=== PATIENT | male | born 1945 | race Caucasian/White ===

== ENCOUNTER → 2020-07-18 11:42 | Outpatient (CLI) | payer MEDICARE, SELFPAY ==
[2018-12-09 14:29] VITALS: BMI 28.6
[2020-07-18 15:06] LABS: Absolute Lymphocyte Count 1.52 X10^3/uL (0.83-4.51); Absolute Neutrophil Count 5.1 X10^3/uL (2.0-7.7); Basophil# 0.06 X10^3/uL; Basophil% 0.8 % (0-1); Eosinophil# 0.36 X10^3/uL; Eosinophils% 4.6 % (0-5); Hematocrit 48.9 % (40-54); Lymphocyte # 1.52 X10^3/ul (4.0); Lymphocyte % 19.2 % (19-41); Mean Corp Hgb Conc 32.7 g/dL (32-36); Mean Corpuscular Hgb 29.9 pg (27.0-32.0); Mean Corpuscular Volume 91.4 fL (80-94); Mean Platelet Vol. 10.6 fl (6.2-12.0); Monocyte# 0.87 X10^3/uL; NRBC Flagged by Analyzer 0 % (0-5); Neutrophil # 5.07 X10^3/uL (2.7-7.7); Platelet Count 235 K/mm3 (150-450); RBC Distribution Width CV 12.4 % (11.6-14.6); Red Blood Count 5.35 M/mm3 (4.6-6.2); White Blood Count 7.9 K/mm3 (4.4-11.0)
[2020-07-18 15:15] LABS: Color, Urine Yellow (Yellow); Glucose, Dipstick Normal (Normal); Ketone-Dipstick Negative (Negative); Leukocyte Esterase-Dipstick 25 /ul (Negative); Nitrite-Dipstick Negative (Negative); Occult Blood-Urine Negative /ul (Negative); Protein-Dipstick Negative (Negative); Specific Gravity, Urine 1.015 (1.002-1.030); Urine Bilirubin Dipstick Negative (Negative); Urine Clarity Clear (Clear); Urine Urobilinogen Normal (Normal)
[2020-07-18 15:30] LABS: ALB/GLOB Ratio 0.9 RATIO (0.9-2.4); AST(SGOT) 14 U/L (15-37); Alanine Aminotransfer ALT/SGPT 32 U/L (16-61); Albumin, Serum 3.7 g/dL (3.2-5.0); Alkaline Phosphatase 71 U/L (45-117); Anion Gap 5 (5-15); BUN 11 mg/dL (7-18); BUN/Creat Ratio 15.6 RATIO (10-20); Chloride 105 mmol/L (98-107); Cholesterol 175 mg/dL (200); EST Glomerular Filtration Rate 117 mL/min (>60); Est Glom Filt Rate - Afr Amer 141 mL/min (>60); Glucose 83 mg/dL (74-106); High Density Lipoprotein 42 mg/dL; PSA,Total - Annual Screen 2.24 ng/mL (0.00-4.00); Protein, Total 7.7 g/dL (6.4-8.2); Sodium Level 137 mmol/L (136-145); T4 Total, Thyroxin 9.8 ug/dL (4.5-12.1); Thyroid Stim Hormone (TSH) 0.31 uIU/mL (0.358-3.74); Triglycerides 106 mg/dL; Very Low Density Lipoprotein 21 mg/dL (5-40)
== END ==
PROVIDERS: PCP Family Medicine; Referring Provider Family Medicine; Visit Provider Family Medicine
DX: Z00.00 Encounter for general adult medical examination without abnormal findings (principal); J44.9 Chronic obstructive pulmonary disease, unspecified; E05.90 Thyrotoxicosis, unspecified without thyrotoxic crisis or storm; Z12.5 Encounter for screening for malignant neoplasm of prostate
CPT/HCPCS: 36415; 80053; 80061; 81002; 84153; 84436; 84443; 84480; 85025; G0103

== ENCOUNTER → 2021-01-22 09:51 | Outpatient (CLI) | payer MEDICARE, SELFPAY ==
[2018-12-09 14:29] VITALS: BMI 28.6
[2021-01-22 12:40] LABS: Absolute Lymphocyte Count 1.89 X10^3/uL (0.83-4.51); Absolute Neutrophil Count 5.4 X10^3/uL (2.0-7.7); Basophil# 0.07 X10^3/uL; Basophil% 0.8 % (0-1); Eosinophil# 0.37 X10^3/uL; Eosinophils% 4.3 % (0-5); Hemoglobin 15.4 g/dL (13.0-16.5); Lymphocyte # 1.89 X10^3/ul (0.83-4.51); Lymphocyte % 22.1 % (19-41); Mean Corp Hgb Conc 32.8 g/dL (32-36); Mean Corpuscular Volume 91.6 fL (80-94); Mean Platelet Vol. 10.1 fl (6.2-12.0); Monocyte# 0.79 X10^3/uL; Monocyte% 9.2 % (0-10); NRBC Flagged by Analyzer 0 % (0-5); Neutrophil % 63.2 % (47-70); Platelet Count 244 K/mm3 (150-450); RBC Distribution Width CV 12.7 % (11.6-14.6); RBC Distribution Width SD 42.6 fl (35.1-43.9); Red Blood Count 5.13 M/mm3 (4.6-6.2); White Blood Count 8.6 K/mm3 (4.4-11.0)
[2021-01-22 12:59] LABS: ALB/GLOB Ratio 0.9 RATIO (0.9-2.4); AST(SGOT) 15 U/L (15-37); Alanine Aminotransfer ALT/SGPT 25 U/L (16-61); Albumin, Serum 3.7 g/dL (3.2-5.0); Alkaline Phosphatase 66 U/L (45-117); Anion Gap 5 (5-15); BUN 12 mg/dL (7-18); BUN/Creat Ratio 19.5 RATIO (10-20); Calcium,Total 9.3 mg/dL (8.5-10.1); Chloride 104 mmol/L (98-107); Cholesterol 179 mg/dL (200); Creatinine, Serum 0.62 mg/dL (0.70-1.30); EST Glomerular Filtration Rate 136 mL/min (>60); Est Glom Filt Rate - Afr Amer 165 mL/min (>60); Glucose 91 mg/dL (74-106); High Density Lipoprotein 46 mg/dL; Protein, Total 7.7 g/dL (6.4-8.2); Sodium Level 139 mmol/L (136-145); Thyroid Stim Hormone (TSH) 6.16 uIU/mL (0.358-3.74); Triglycerides 111 mg/dL; Very Low Density Lipoprotein 22 mg/dL (5-40)
== END ==
PROVIDERS: PCP Family Medicine; Referring Provider Family Medicine; Visit Provider Family Medicine
DX: Z00.00 Encounter for general adult medical examination without abnormal findings (principal); E05.90 Thyrotoxicosis, unspecified without thyrotoxic crisis or storm; Z12.5 Encounter for screening for malignant neoplasm of prostate
CPT/HCPCS: 36415; 80053; 80061; 84439; 84443; 85025

== ENCOUNTER → 2023-11-03 | Outpatient (CLI) | payer MEDICARE, SELFPAY ==
[2023-11-03 12:42] LABS: Cholesterol 187 mg/dL (200); High Density Lipoprotein 46 mg/dL; Thyroid Stim Hormone (TSH) 3.51 uIU/mL (0.358-3.74); Triglycerides 118 mg/dL; Very Low Density Lipoprotein 24 mg/dL (5-40)
== END | disposition home or self-care (01) ==
LOC: BIMLAB 08:46
PROVIDERS: PCP Internal Medicine; Visit Provider Internal Medicine
DX: E05.90 Thyrotoxicosis, unspecified without thyrotoxic crisis or storm (principal); Z13.6 Encounter for screening for cardiovascular disorders
CPT/HCPCS: 36415; 80061; 84443

== ENCOUNTER 2024-09-03 12:32 | Inpatient (IN) | payer MEDICARE, SELFPAY ==
[2024-09-03] VITALS (12 sets, daily range): BP systolic 129–152; BP diastolic 71–79; PULSE 70–97; RESP 14–26; TEMP 36.6–36.8; O2SAT 85–95; BMI 28.3; BMI 28.4
--- NOTE | 2024-09-03 12:37 | EKG12_ITS ---
Test Reason : SOB Blood Pressure : */* mmHG Vent. Rate : 89 BPM Atrial Rate : 89 BPM P-R Int : 220 ms QRS Dur : 94 ms QT Int : 364 ms P-R-T Axes : 41 -49 16 degrees QTcB Int : 442 ms Sinus rhythm with 1st degree A-V block with Premature atrial complexes Left axis deviation Inferior infarct , age undetermined Abnormal ECG Confirmed by MARK RODRIGUEZ, ALMA ([id number]), video tape editor VILLA GÓMEZ ([id number]) on 09/05/2024 8:27:17 AM Referred By: Confirmed By: ALMA FLORES MD
[2024-09-03 12:46] LABS: Absolute Lymphocyte Count 0.91 X10^3/uL (0.83-4.51); Absolute Neutrophil Count 7.5 X10^3/uL (2.0-7.7); Basophil# 0.07 X10^3/uL; Basophil% 0.7 % (0-1); Eosinophil# 0.36 X10^3/uL; Eosinophils% 3.8 % (0-5); Hemoglobin 14.5 g/dL (13.0-16.5); Lymphocyte # 0.91 X10^3/ul (0.83-4.51); Lymphocyte % 9.5 % (19-41); Mean Corp Hgb Conc 31.5 g/dL (32-36); Mean Corpuscular Hgb 28.9 pg (27.0-32.0); Mean Corpuscular Volume 91.6 fL (80-94); Mean Platelet Vol. 9.8 fl (6.2-12.0); Monocyte# 0.72 X10^3/uL; Monocyte% 7.5 % (0-10); NRBC Flagged by Analyzer 0 % (0-5); Neutrophil # 7.47 X10^3/uL (2.7-7.7); Neutrophil % 78.1 % (47-70); Platelet Count 274 K/mm3 (150-450); RBC Distribution Width CV 13.4 % (11.6-14.6); RBC Distribution Width SD 45.1 fl (35.1-43.9); Red Blood Count 5.02 M/mm3 (4.6-6.2); White Blood Count 9.6 K/mm3 (4.4-11.0)
[2024-09-03 13:06] LABS: Anion Gap 9 (5-15); BUN 8 mg/dL (4-19); BUN/Creat Ratio 13.1 RATIO (10-20); Calcium,Total 9.1 mg/dL (7.6-11.0); Carbon Dioxide 30.9 mmol/L (21.0-32.0); Chloride 99 mmol/L (98-108); Creatinine, Serum 0.65 mg/dL (0.70-1.20); EST Glomerular Filtration Rate 97 (>60); Glucose 103 mg/dL (70-99); Potassium 4.4 mmol/L (3.3-5.1); Sodium Level 139 mmol/L (133-145)
--- NOTE | 2024-09-03 13:24 | RAD_ITS ---
PROCEDURE: CHEST PA AND LATERAL 09/03/2024 REASON FOR EXAM: 79-year-old male, shortness of breath. TECHNIQUE: Frontal and lateral views of the chest. COMPARISON: None. FINDINGS: Hardware: None. Heart: The cardiomediastinal silhouette is obscured. Pulmonary vascular congestion. Lungs: Moderate bilateral pleural effusions with adjacent atelectasis. No large focal consolidation or pneumothorax. Bones: Degenerative changes are identified within the thoracic spine. RAD/Chest PA and Lateral IMPRESSION: Moderate bilateral pleural effusions. Reading Location: [id number]
--- NOTE | 2024-09-03 13:28 | ED.VIS.DYS ---
HPI <TERRY Franz - Last Filed: 09/03/24 16:11> History of Present Illness Chief Complaint: Shortness of Breath Narrative Narrative: Patient presenting due to progressively worsening shortness of breath with exertion he has had over the past month. He does have a history of COPD, he stopped smoking last week. He reports occasional wheezing. He has had a productive cough with hallman-colored sputum over the past month that is not worsening. He does not use supplemental O2 at home. He does not follow-up with pulmonology. He denies fevers, chills, chest pain, orthopnea, and leg swelling. He denies any cardiac history. He has a PMH of hypothyroidism, COPD. PE Risk Factors: Negative for Cancer, Prior DVT or PE, Recent immobilization, Recent surgery or Recent travel PFSH <TERRY Franz - Last Filed: 09/03/24 16:11> [facility] Medical History Essential tremor Cataract COPD (chronic obstructive pulmonary disease) Thyroid disease Asthma Home Medications ?Medication ?Instructions ?Recorded ?Last Taken ?Type methimazole 5 mg tablet 5 mg PO QDAY #90 tabs 04/26/24 09/03/24 Rx fluticasone furoate 100 1 inh inhalation DAILY 09/03/24 09/02/24 History mcg-vilanterol 25 mcg/dose inhalation powder (Breo Ellipta) Allergy/AdvReac Type Severity Reaction Status Date / Time shellfish derived AdvReac Mild Nausea/Vom/ Verified 09/03/24 12:32 Diarrhea Family History Mother Colon cancer Sister Colon cancer Surgical History H/O cataract extraction H/O shoulder surgery H/O sinus surgery Social History adopted: No household members: spouse number of children: 2 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 status: retired 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 [employer] pets and animals: Yes (1) pets and animals: dog(s) Smoking Status: Current every day smoker tobacco type: cigarettes Tobacco: How many years used: 40 quit status: considering quitting alcohol intake: never substance use type: does not use caffeine: Yes (1) Type: coffee frequency: does not exercise seatbelt use: always do you feel safe at home: Yes ROS <TERRY Franz - Last Filed: 09/03/24 16:11> ROS ED Constitutional Constitutional ED: Denies chills or fever(s) Cardiovascular Cardiovascular: Denies chest pain, orthopnea or palpitations Respiratory/Chest Respiratory/Chest: Reports cough, dyspnea on exertion, sputum and wheezing; Denies orthopnea Gastrointestinal Gastrointestinal: Denies abdominal pain, nausea or vomiting Musculoskeletal Musculoskeletal: Denies arthralgias or myalgias Integumentary Denies rash Neurologic Neurologic: Denies weakness EXAM <TERRY Franz - Last Filed: 09/03/24 16:11> Physical Exam Const Vital Signs: 09/03/24 12:32 09/03/24 12:35 09/03/24 12:37 Temperature 98.1 F Temperature Source Temporal Pulse Rate 82 Respiratory Rate 16 Respiratory Effort Respiratory Depth Respiratory Pattern Blood Pressure 152/75 H Blood Pressure Mean 100 Pulse Ox 85 95 89 Oxygen Delivery Method Room Air Nasal Cannula Room Air Oxygen Flow Rate (L/min) 2 09/03/24 12:37 09/03/24 12:50 09/03/24 13:20 Temperature 98.1 F Temperature Source Oral Pulse Rate 82 Respiratory Rate 16 16 Respiratory Effort Normal Non-Labored Respiratory Depth Normal Respiratory Pattern Normal Blood Pressure 152/75 H Blood Pressure Mean 100 Pulse Ox 89 95 Oxygen Delivery Method Room Air Nasal Cannula Room Air Oxygen Flow Rate (L/min) 2 09/03/24 13:35 09/03/24 14:11 09/03/24 15:48 Temperature 98.3 F Temperature Source Pulse Rate 90 90 94 Respiratory Rate 20 H 24 H 26 H Respiratory Effort Respiratory Depth Respiratory Pattern Blood Pressure 133/79 H 151/78 H Blood Pressure Mean 97 102 Pulse Ox 95 91 Oxygen Delivery Method Nasal Cannula Oxygen Flow Rate (L/min) 2 Positive well nourished, well developed and no apparent distress General Appearance ED: well developed HEENT Reports normocephalic and head/scalp atraumatic Mouth ED: Yes moist mucous membranes normal Eyes PERRL and EOMs intact bilaterally Neck full ROM and supple Chest Wall inspection of chest normal Resp normal respiratory effort Resp Narrative: Expiratory wheezes to the bilateral lungs Cardio regular rate and regular rhythm GI soft to palpation, non-tender, non-distended and no masses Back/Spine normal ROM and normal to inspection Extremity normal to inspection and full ROM Neuro oriented x3, CN's II-XII intact bilaterally, moves all extremities, no focal motor deficits and no sensory deficits noted Sensorium / Orientation: awake and alert Psych mental status grossly normal and thought process normal Skin no rashes or lesions noted and no wounds <Dr. Dano Shea DO - Last Filed: 09/03/24 18:50> Physical Exam Const Vital Signs: 09/03/24 12:32 09/03/24 12:35 09/03/24 12:37 Temperature 98.1 F Temperature Source Temporal Pulse Rate 82 Respiratory Rate 16 Respiratory Effort Respiratory Depth Respiratory Pattern Blood Pressure 152/75 H Blood Pressure Mean 100 Pulse Ox 85 95 89 Oxygen Delivery Method Room Air Nasal Cannula Room Air Oxygen Flow Rate (L/min) 2 09/03/24 12:37 09/03/24 12:50 09/03/24 13:20 Temperature 98.1 F Temperature Source Oral Pulse Rate 82 Respiratory Rate 16 16 Respiratory Effort Normal Non-Labored Respiratory Depth Normal Respiratory Pattern Normal Blood Pressure 152/75 H Blood Pressure Mean 100 Pulse Ox 89 95 Oxygen Delivery Method Room Air Nasal Cannula Room Air Oxygen Flow Rate (L/min) 2 09/03/24 13:35 09/03/24 14:11 09/03/24 15:48 Temperature 98.3 F Temperature Source Pulse Rate 90 90 94 Respiratory Rate 20 H 24 H 26 H Respiratory Effort Respiratory Depth Respiratory Pattern Blood Pressure 133/79 H 151/78 H Blood Pressure Mean 97 102 Pulse Ox 95 91 Oxygen Delivery Method Nasal Cannula Oxygen Flow Rate (L/min) [address] [facility] <TERRY Franz - Last Filed: 09/03/24 16:11> [facility] Narrative Medical decision making narrative: Patient presenting today due to shortness of breath with exertion that has been worsening over the past month. He has a history of COPD, he has had intermittent wheezing, he does have wheezing on exam. His exam is consistent with a COPD exacerbation. Low suspicion for PE at this time. He will be given IV Solu-Medrol and albuterol and DuoNeb breathing treatments. Patient was hypoxic on initial arrival at 85%, he was placed on 2 L supplemental O2. He was taken back off of the oxygen and did desaturate again into the upper 80s. Labs were obtained, his CBC, BMP, troponin, and BNP are unremarkable. Chest x-ray shows moderate bilateral pleural effusions. No infiltrate. He denies any history of CHF. Given his hypoxia and not having supplemental O2 at home, I will speak with the hospitalist for admission. VBG obtained and does show CO2 retention but he is stable at this time not requiring BiPAP. He will be admitted to the hospital in stable condition. ED attending note: I evaluated the patient in conjunction with the ARMAAN. I agree with his/her statements and above findings. I have personally performed a face to face assessment of the patient and have reviewed the ARMAAN Note. I performed a substantive portion of the visit including all aspects of the following. I personally saw the patient performed chart review, physical exam, reviewed labs, imaging (if obtained), and formulated a treatment and management plan. EKG with normal sinus rhythm rate of 89, prolonged NH interval, first-degree AV block, left ax deviation, QTc 442, no STEMI, no sign of a atrial fibrillation This note was generated with OrderWithMe dictation software. It may contain incorrect words, spelling, and punctuation that were not noted in review of the chart prior to signing. Lab Data Labs: Laboratory Results - last 24 hr 09/03/24 09/03/24 12:38 12:40 WBC 9.6 RBC 5.02 Hgb 14.5 Hct 46.0 MCV 91.6 MCH 28.9 MCHC 31.5 L RDW Std Deviation 45.1 H RDW Coeff of Carole 13.4 Plt Count 274 MPV 9.8 Immature Gran % (Auto) 0.400 Neut % (Auto) 78.1 H Lymph % (Auto) 9.5 L Heard % (Auto) 7.5 Eos % (Auto) 3.8 Baso % (Auto) 0.7 Absolute Neuts (auto) 7.5 Absolute Lymphs (auto) 0.91 Nucleated RBC % 0 Sodium 139 Potassium 4.4 Chloride 99 Carbon Dioxide 30.9 Anion Gap 9 BUN 8 Creatinine 0.65 L Estim Creat Clear Calc 95.10 Est GFR (MDRD) Non-Af 97 BUN/Creatinine Ratio 13.1 Glucose 103 H Calcium 9.1 Troponin T High Sens 12 NT pro BNP II 267 ABG Data ABG results: ABG 09/03/24 14:11 Specimen Type GABRIEL Sample Site Not entered O2 % 2.0 VBG pH 7.35 VBG pO2 46 H VBG HCO3 36 H VBG Total CO2 38 H VBG O2 Sat (Calc) 77 H VBG Base Excess 10 H POC Mix VBG pCO2 Pt Tmp 65.6 H O2 Delivery Device Cannula Radiography X-Ray: Read by ED Physician Diagnostic Testing: Clinical Impression(s) from Imaging Studies Chest X-Ray 09/03/24 13:24 IMPRESSION: Moderate bilateral pleural effusions. Reading Location: [id number] <Dr. Dano Shea, DO - Last Filed: 09/03/24 18:50> [facility] MDM Narrative Medical decision making narrative: Patient presenting today due to shortness of breath with exertion that has been worsening over the past month. He has a history of COPD, he has had intermittent wheezing, he does have wheezing on exam. His exam is consistent with a COPD exacerbation. Low suspicion for PE at this time. He will be given IV Solu-Medrol and albuterol and DuoNeb breathing treatments. Patient was hypoxic on initial arrival at 85%, he was placed on 2 L supplemental O2. He was taken back off of the oxygen and did desaturate again into the upper 80s. Labs were obtained, his CBC, BMP, troponin, and BNP are unremarkable. Chest x-ray shows moderate bilateral pleural effusions. No infiltrate. He denies any history of CHF. Given his hypoxia and not having supplemental O2 at home, I will speak with the hospitalist for admission. VBG obtained and does show CO2 retention but he is stable at this time not requiring BiPAP. He will be admitted to the hospital in stable condition. ED attending note: I evaluated the patient in conjunction with the ARMAAN. I agree with his/her statements and above findings. I have personally performed a face to face assessment of the patient and have reviewed the ARMAAN Note. I performed a substantive portion of the visit including all aspects of the following. I personally saw the patient performed chart review, physical exam, reviewed labs, imaging (if obtained), and formulated a treatment and management plan. EKG with normal sinus rhythm rate of 89, prolonged NH interval, first-degree AV block, left ax deviation, QTc 442, no STEMI, no sign of a atrial fibrillation Patient chest x-ray was read reviewed personally myself showed no evidence of obvious pneumonia. Radiologist noted bilateral pneumonia. This note was generated with OrderWithMe dictation software. It may contain incorrect words, spelling, and punctuation that were not noted in review of the chart prior to signing. Lab Data Attestation: I reviewed the patient's lab results. Labs: Laboratory Results - last 24 hr 09/03/24 09/03/24 12:38 12:40 WBC 9.6 RBC 5.02 Hgb 14.5 Hct 46.0 MCV 91.6 MCH 28.9 MCHC 31.5 L RDW Std Deviation 45.1 H RDW Coeff of Carole 13.4 Plt Count 274 MPV 9.8 Immature Gran % (Auto) 0.400 Neut % (Auto) 78.1 H Lymph % (Auto) 9.5 L Heard % (Auto) 7.5 Eos % (Auto) 3.8 Baso % (Auto) 0.7 Absolute Neuts (auto) 7.5 Absolute Lymphs (auto) 0.91 Nucleated RBC % 0 Sodium 139 Potassium 4.4 Chloride 99 Carbon Dioxide 30.9 Anion Gap 9 BUN 8 Creatinine 0.65 L Estim Creat Clear Calc 95.10 Est GFR (MDRD) Non-Af 97 BUN/Creatinine Ratio 13.1 Glucose 103 H Calcium 9.1 Troponin T High Sens 12 NT pro BNP II 267 ABG Data ABG results: ABG 09/03/24 14:11 Specimen Type GABRIEL Sample Site Not entered O2 % 2.0 VBG pH 7.35 VBG pO2 46 H VBG HCO3 36 H VBG Total CO2 38 H VBG O2 Sat (Calc) 77 H VBG Base Excess 10 H POC Mix VBG pCO2 Pt Tmp 65.6 H O2 Delivery Device Cannula Radiography Diagnostic Testing: Clinical Impression(s) from Imaging Studies Chest X-Ray 09/03/24 13:24 IMPRESSION: Moderate bilateral pleural effusions. Reading Location: [id number] Discharge Plan Dx/Rx/DC Orders Clinical Impression: Hypoxia, Shortness of breath, COPD exacerbation, Pleural effusion, bilateral Disposition Disposition: Acute Care [facility] Discharge Date/Time: 09/03/24 15:56
[2024-09-03] MEDS: Ipratropium/Albuterol Sulfate 3 ML AMPUL.NEB INHALATION ×3 (13:33→22:55)
[2024-09-03] MEDS: Albuterol 2.5 MG/3 ML VIAL.NEB. INHALATION (13:33)
[2024-09-03] MEDS: MethylPREDNISolone 125 MG/2 ML Vial IV (13:48)
[2024-09-03 14:15] LABS: Blood Gas Specimen Type VEN; O2 Delivery Device Cannula; SITE Not entered; VBG BASE EXCESS 10 mmol/L (-1.0-3.5); VBG Bicarbonate 36 mmol/L (22-26); VBG PO2 46 mmHg (25-40); VBG SO2 77 % (50-70); VBG TCO2 38 mmol/L (23-33); VBG pCO2 65.6 mmHg (41-51); VBG pH 7.35 (7.32-7.42)
[2024-09-03 14:34] LABS: Troponin T High Sensitivity 12 ng/L (<=22)
[2024-09-03 14:55] LABS: Pro- Brain NATRIURETIC PEPTIDE 267 pg/mL (<=1800)
--- NOTE | 2024-09-03 15:49 | HP.PCM.HOS_ITS ---
HPI - General General Date of Admission: 09/03/24 Date of Service: 09/03/24 Chief Complaint: Shortness of breath and hypoxia HPI Narrative BRIGETTE RUSSELL, is a 79-year-old male history of COPD and hyperthyroidism who presented to [facility] ED 09/03/2024 with increasing shortness of breath on exertion over the past month and occasional wheezing. Also has a productive cough with hallman sputum over the past month which has not necessarily worsened. On arrival patient afebrile and initially patient 85% on room air on arrival and was placed on 2 L of O2 and given IV Solu-Medrol and DuoNebs. Chest x-ray with moderate bilateral pleural effusions with no acute infiltrate. Patient's VBG in the ED with bicarb of 36 and total CO2 of 38, troponin 12, BNP 267. Due to patient's hypoxia hospitalist contacted for admission for COPD exacerbation. Patient evaluated with family members at bedside, patient has COPD and follows with his primary care physician for management of his COPD, reports that for the past week he has had increased shortness of breath and cough with hallman sputum and had a very bad night last night per family so today they checked his oxygen and it was low to mid 80s and never went above 90s prompting them to bring him to the ED. Patient reports breathing is about the same at this time, no fevers, no chest pain, no weight gain, no increased swelling in lower extremities, no bowel or bladder complaints. No history of heart failure [facility] Medical History Essential tremor Cataract COPD (chronic obstructive pulmonary disease) Thyroid disease Asthma Home Medications ?Medication ?Instructions ?Recorded ?Last Taken ?Type methimazole 5 mg tablet 5 mg PO QDAY #90 tabs 09/03/24 Rx fluticasone furoate 100 1 inh inhalation DAILY 09/0309/02/24 History mcg-vilanterol 25 mcg/dose inhalation powder (Breo Ellipta) Allergy/AdvReac Type Severity Reaction Status Date / Time shellfish derived AdvReac Mild Nausea/Vom/ Verified 09/03/24 12:32 Diarrhea Family History Mother Colon cancer Sister Colon cancer Surgical History H/O cataract extraction H/O shoulder surgery H/O sinus surgery Social History adopted: No household members: spouse number of children: 2 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 status: 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 [employer] pets and animals: Yes (1) pets and animals: dog(s) Smoking Status: Current every day smoker tobacco type: cigarettes Tobacco: How many years used: 40 quit status: considering quitting alcohol intake: never substance use type: does not use caffeine: Yes (1) Type: coffee frequency: does not exercise seatbelt use: always do you feel safe at home: Yes ROS ROS Narrative General: Denies fever/chills HENT: Denies headache, denies stuffy nose, denies sore throat EYES: Denies changes in vision Resp: Productive cough with hallman sputum, increased shortness of breath and hypoxia for 1 month Cardiac: Denies chest pain GI: Denies abdominal pain, denies changes in bowel, denies nausea/vomiting : Denies changes in urination Extremity: Denies swelling MSK: Denies weakness Neuro: Denies any numbness/tingling Heme: Denies any bleeding or bruising Skin: Denies rashes Psychiatric: No complaints voiced Vital Signs Vital Signs Vital Signs: 09/03/24 12:32 09/03/24 12:35 09/03/24 12:37 Temperature 98.1 F Temperature Source Temporal Pulse Rate 82 Respiratory Rate 16 Respiratory Effort Respiratory Depth Respiratory Pattern Blood Pressure 152/75 H Blood Pressure Mean 100 Pulse Ox 85 95 89 Oxygen Delivery Method Room Air Nasal Cannula Room Air Oxygen Flow Rate (L/min) 2 09/03/24 12:37 09/03/24 12:50 09/03/24 13:20 Temperature 98.1 F Temperature Source Oral Pulse Rate 82 Respiratory Rate 16 16 Respiratory Effort Normal Non-Labored Respiratory Depth Normal Respiratory Pattern Normal Blood Pressure 152/75 H Blood Pressure Mean 100 Pulse Ox 89 95 Oxygen Delivery Method Room Air Nasal Cannula Room Air Oxygen Flow Rate (L/min) 2 09/03/24 13:35 09/03/24 14:11 Temperature Temperature Source Pulse Rate 90 90 Respiratory Rate 20 H 24 H Respiratory Effort Respiratory Depth Respiratory Pattern Blood Pressure 133/79 H Blood Pressure Mean 97 Pulse Ox 95 Oxygen Delivery Method Nasal Cannula Oxygen Flow Rate (L/min) 2 Weight Weight: 97.522 kg Body Mass Index (BMI) 28.3 Physical Exam Narrative General: Alert, oriented, no apparent distress HEENT: Atraumatic, normocephalic Eyes: Anicteric, normal conjunctiva, extraocular movements grossly intact Neck: Supple Respiratory: Fairly normal respiratory effort but does have diffuse expiratory wheezes and somewhat dull at the bases Cardiovascular: Regular rate and rhythm GI: Soft, nontender, nondistended Extremities: No edema Musculoskeletal: Moving all extremities Neuro: No overt focal neurological deficits Skin: No rashes appreciated Psych: Cooperative Results Lab / Micro Data 09/03/24 12:40 09/03/24 12:40 Labs: Laboratory Results - last 24 hr 09/03/24 12:38: Troponin T High Sens 12, NT pro BNP II 267 09/03/24 12:40: WBC 9.6, RBC 5.02, Hgb 14.5, Hct 46.0, MCV 91.6, MCH 28.9, MCHC 31.5 L, RDW Std Deviation 45.1 H, RDW Coeff of Carole 13.4, Plt Count 274, MPV 9.8, Immature Gran % (Auto) 0.400, Neut % (Auto) 78.1 H, Lymph % (Auto) 9.5 L, [place] % (Auto) 7.5, Eos % (Auto) 3.8, Baso % (Auto) 0.7, Absolute Neuts (auto) 7.5, Absolute Lymphs (auto) 0.91, Nucleated RBC % 0, Sodium 139, Potassium 4.4, Chloride 99, Carbon Dioxide 30.9, Anion Gap 9, BUN 8, Creatinine 0.65 L, Estim Creat Clear Calc 95.10, Est GFR (MDRD) Non-Af 97, BUN/Creatinine Ratio 13.1, G lucose 103 H, Calcium 9.1 ABG Data ABG results: ABG 09/03/24 14:11 Specimen Type GABRIEL Sample Site Not entered O2 % 2.0 VBG pH 7.35 VBG pO2 46 H VBG HCO3 36 H VBG Total CO2 38 H VBG O2 Sat (Calc) 77 H VBG Base Excess 10 H POC Mix VBG pCO2 Pt Tmp 65.6 H O2 Delivery Device Cannula Imaging Radiology Impression Chest X-Ray 09/03/24 13:24 IMPRESSION: Moderate bilateral pleural effusions. Reading Location: [facility] Assessment & Plan Assessment/Plan (1) COPD exacerbation: PLAN: Plan #Acute exacerbation of COPD -Admit to floor, continuous O2 monitoring -Chest x-ray: No acute infiltrate but notes bilateral pleural effusions -COVID negative, obtain respiratory panel, sputum culture if able -O2 in place, wean as tolerated -IV methylprednisone -Scheduled DuoNebs -Albuterol prn -Antibiotics: Azithromycin -Incentive spirometer -Mucinex # Abnormal chest x-ray -Chest x-ray reported out as bilateral pleural effusions, moderate, no recent chest x-rays for comparison, patient denies any history of heart failure and has denied any weight gain or swelling in lower extremities, no chest pain, troponin and BNP within normal limits -Will obtain CT and echocardiogram for better characterization as patient still 90% in the ED on 2 L and suspect that this is a component of his hypoxia on top of the COPD exacerbation -Will monitor daily weights and I's and O's -Heart healthy diet while awaiting further workup #Hx hyperthyroidism -Continue methimazole -TSH, free T4 and free T3 #DVT ppx: Lovenox subcu Charges/Coding Visit Charges Inpatient E&M: 17302 Init Hosp L2
--- NOTE | 2024-09-03 16:08 | CT_ITS ---
PROCEDURE: CHEST WITHOUT CONTRAST 09/03/2024 REASON FOR EXAM: Abnormal chest x-ray with effusions. TECHNIQUE: Contiguous axial scans of 2.5 mm slice thicknesses. Sagittal and coronal reconstruction images were obtained. One or more dose reduction techniques were used (e.g., automated exposure control, adjustment of mA and/or kv according to patient size, use of iterative reconstruction technique). RADIATION DOSE SUMMARY: CTDlvol: 17.21 mGy DLP: 718.09 mGycm COMPARISON: PA and lateral chest dated 09/03/2024. FINDINGS: Hardware: Unremarkable. Lymph nodes: Unremarkable. Heart and Vasculature: Normal heart size. No pericardial thickening or effusion. Severe atherosclerotic calcific disease in the aorta. No aneurysms. Coronary Artery Calcifications: Mild calcifications. Lungs and Airways: Airspace consolidation in the lower lobes with air bronchograms most likely compressive. Mild bilateral centrilobular emphysematous changes. Pleura: Moderate bilateral pleural effusions. Upper Abdomen: Unremarkable. Bones: Multilevel spondylosis. CT/Chest without Contrast IMPRESSION: Moderate bilateral pleural effusions with compressive atelectasis in the bilate ral lower lobes. Can not exclude developing infiltrate or superimposed neoplasm. Mild emphysematous changes primarily in the upper lobes. Mild coronary artery calcification. Other nonacute findings detailed above. Reading Location: [facility]
--- NOTE | 2024-09-03 16:08 | ECHOCS_ITS ---
Reason For Study Reason For Study: PLEURAL EFFUSION Procedure This was a 2D Doppler, Color Flow transthoracic echocardiogram. The study was technically difficult. Exam performed portable in patient room. Left Ventricle Normal LV size. Left ventricular systolic function is normal. The left ventricular ejection fraction is 60 %. No regional wall motion abnormalities noted. Right Ventricle Normal RV size. Normal systolic function. Atria Normal left atrium. Normal right atrium. Mitral Valve Normal mitral valve. Tricuspid Valve Normal tricuspid valve. Aortic Valve Trisinus/trileaflet aortic valve. Mild focal aortic valve calcification. Great Vessels Normal aortic root. Pericardium/Pleural No pericardial effusion. Medication Diluted definity 1ml given slow IV push to enhance endocardial definition. MMode/2D Measurements & Calculations LVIDd: 5.0 cm IVSd: 1.0 cm Ao root diam: 3.0 cm LVIDs: 3.4 cm LVPWd: 0.97 cm RVDd: 4.2 cm FS: 32.5 % LAV(MOD-bp): 42.2 ml LVAd ap4: 34.6 cm2 SV(MOD-sp4): 69.8 ml LAV(MOD-bp) Indexed: 19.0 ml/m2 LVLd ap4: 8.8 cm SI(MOD-sp4): 31.4 ml/m2 LAV(MOD-sp2): 42.0 ml EDV(MOD-sp4): 114.0 ml LAV(MOD-sp4): 42.1 ml EDV(sp4-el): 114.9 ml LVAs ap4: 19.0 cm2 LVLs ap4: 7.4 cm ESV(MOD-sp4): 44.2 ml ESV(sp4-el): 41.4 ml EF(MOD-sp4): 61.2 % EF(sp4-el): 63.9 % SV(sp4-el): 73.5 ml LA A4 area: 16.9 cm2 LA dimension(2D): 3.2 cm RA A4 area: 16.8 cm2 TAPSE: 2.2 cm Time Measurements MV dec time: 0.20 sec Doppler Measurements & Calculations MV E max luis: 112.6 cm/sec Lat Peak E' Luis: 13.4 cm/sec Med Peak E' Luis: 9.9 cm/sec MV A max luis: 131.8 cm/sec E/E' lat: 8.4 E/E' med: 11.4 MV E/A: 0.85 Ao V2 max: 191.0 cm/sec LV V1 max: 123.2 cm/sec PA V2 max: 121.6 cm/sec Ao max P.6 mmHg LV V1 max P.1 mmHg ECHO/Echo Complete W/ Contrast Interpretation Summary Normal LV size. Left ventricular systolic function is normal. The left ventricular ejection fraction is 60 %. Contrast injection was performed. Ordering Physician: Vibha Matias Referring Physician: THIAGO LOVING Performed By: Mariajose Cardozo RDCS
[2024-09-03] MEDS: Azithromycin 250 MG Tablet 500 MG PO (16:41)
[2024-09-03] MEDS: 0.9% Saline Lock 10 ML Syringe IV (21:28)
[2024-09-03] MEDS: guaiFENesin 1,200 MG Tablet 1200 MG PO (21:28)
[2024-09-03] MEDS: Methylprednisolone Sod Succ 40 MG/ML VIAL IV (21:28)
[2024-09-04] VITALS (14 sets, daily range): BP systolic 107–144; BP diastolic 58–79; PULSE 85–99; RESP 15–20; TEMP 36.5–36.6; O2SAT 90–96; BMI 28.4
[2024-09-04] MEDS: Ipratropium/Albuterol Sulfate 3 ML AMPUL.NEB INHALATION ×5 (03:10→20:25)
[2024-09-04] MEDS: Methylprednisolone Sod Succ 40 MG/ML VIAL IV ×3 (06:07→20:30)
[2024-09-04 07:00] LABS: Absolute Lymphocyte Count 0.55 X10^3/uL (0.83-4.51); Absolute Neutrophil Count 7.6 X10^3/uL (2.0-7.7); Basophil# 0.01 X10^3/uL; Basophil% 0.1 % (0-1); Hematocrit 45.7 % (40-54); Hemoglobin 14.2 g/dL (13.0-16.5); Lymphocyte # 0.55 X10^3/ul (0.83-4.51); Lymphocyte % 6.4 % (19-41); Mean Corp Hgb Conc 31.1 g/dL (32-36); Mean Corpuscular Hgb 28.2 pg (27.0-32.0); Mean Corpuscular Volume 90.9 fL (80-94); Monocyte# 0.36 X10^3/uL; Monocyte% 4.2 % (0-10); NRBC Flagged by Analyzer 0 % (0-5); Neutrophil # 7.56 X10^3/uL (2.7-7.7); Neutrophil % 88.7 % (47-70); POSITIVE DIFFERENTIAL YES; Platelet Count 305 K/mm3 (150-450); RBC Distribution Width CV 13.2 % (11.6-14.6); RBC Distribution Width SD 43.8 fl (35.1-43.9); Red Blood Count 5.03 M/mm3 (4.6-6.2); White Blood Count 8.5 K/mm3 (4.4-11.0)
[2024-09-04 07:50] LABS: Anion Gap 9 (5-15); BUN 9 mg/dL (4-19); BUN/Creat Ratio 16.2 RATIO (10-20); Calcium,Total 9.2 mg/dL (7.6-11.0); Chloride 100 mmol/L (98-108); Creatinine, Serum 0.54 mg/dL (0.70-1.20); EST Glomerular Filtration Rate 103 (>60); Glucose 130 mg/dL (70-99); Potassium 4.7 mmol/L (3.3-5.1); Sodium Level 138 mmol/L (133-145); Thyroid Stim Hormone (TSH) 0.654 uIU/mL (0.300-4.200)
--- NOTE | 2024-09-04 10:20 | CASEMGMT ---
SATURNINO CARRANZA Face to Face with patient for initial transition planning/care coordination assessment. RN CM introduced self and role at [facility]. Patient lying in bed, alert and oriented. Patient willing to participate in assessment and is able to answer all questions appropriately. Care providers, pharmacy, and demographics verified. Strata: 1 PCP: Cathy Specialists: none [facility]erred Pharm[facility] Benefit: yes Living Will/HPOA: none LNOK: , daughter Living Arrangements: Jesus lives with in a 2 story home with bed and bath on first floor, 2 steps and railing to enter. Patient is independent at home. Transportation: self, DME/HHC: Patient has shower chair, grab bars, raised toilet, nebuilzer, pulse ox, and walker at home. No previous HHC or SNF. Will monitor for home oxygen, prefers [employer]. Patient wishes to discharge home, denies need for home health at this time. Patient states he has no further needs or concerns at this time. CM to follow for discharge planning needs that may arise. Disposition Plan: Patient to discharge home with family support and follow-up plans in place. Purnima LUIS, RN, CM
[2024-09-04] MEDS: Azithromycin 250 MG Tablet 500 MG PO (10:59)
[2024-09-04] MEDS: Methimazole 5 MG Tablet PO (10:59)
--- NOTE | 2024-09-04 11:41 | PCM.PN.HOSP ---
Reason for Visit Reason for Visit: Diagnoses Chronic obstructive pulmonary disease with (acute) exacerbation (09/03/24) Objective Data Objective Data Vital Signs: Vital Signs Temp Pulse Resp BP Pulse Ox O2 Del Method O2 Flow Rate 97.9 F 99 18 120/64 93 Nasal Cannula 3 09/04/24 10:54 09/04/24 10:54 09/04/24 10:54 09/04/24 10:54 09/04/24 10:54 09/04/24 10:54 09/04/24 10:54 Oxygen Flow Rate (L/min) 3 Oxygen Delivery Method Nasal Cannula Weight: 97.3 kg Body Mass Index (BMI) 28.4 Intake & Output: Intake and Output for Last 24 Hours 09/02/24 09/03/24 09/04/24 23:59 23:59 23:59 Intake Total 1100 / 1100 Output Total 900 / 900 Balance 200 / 200 Lab / Micro Data 09/04/24 06:46 09/04/24 06:46 Labs: Laboratory Results - last 24 hr 09/03/24 12:38: Troponin T High Sens 12, NT pro BNP II 267 09/03/24 12:40: WBC 9.6, RBC 5.02, Hgb 14.5, Hct 46.0, MCV 91.6, MCH 28.9, MCHC 31.5 L, RDW Std Deviation 45.1 H, RDW Coeff of Carole 13.4, Plt Count 274, MPV 9.8, Immature Gran % (Auto) 0.400, Neut % (Auto) 78.1 H, Lymph % (Auto) 9.5 L, Emmons % (Auto) 7.5, Eos % (Auto) 3.8, Baso % (Auto) 0.7, Absolute Neuts (auto) 7.5, Absolute Lymphs (auto) 0.91, Nucleated RBC % 0, Sodium 139, Potassium 4.4, Chloride 99, Carbon Dioxide 30.9, Anion Gap 9, BUN 8, Creatinine 0.65 L, Estim Creat Clear Calc 95.10, Est GFR (MDRD) Non-Af 97, BUN/Creatinine Ratio 13.1, Glucose 103 H, Calcium 9.1 09/04/24 06:46: WBC 8.5, RBC 5.03, Hgb 14.2, Hct 45.7, MCV 90.9, MCH 28.2, MCHC 31.1 L, RDW Std Deviation 43.8, RDW Coeff of Carole 13.2, Plt Count 305, MPV 10.0, Immature Gran % (Auto) 0.600, Neut % (Auto) 88.7 H, Lymph % (Auto) 6.4 L, Emmons % (Auto) 4.2, Eos % (Auto) 0.0, Baso % (Auto) 0.1, Absolute Neuts (auto) 7.6, Absolute Lymphs (auto) 0.55 L, Nucleated RBC % 0, Sodium 138, Potassium 4.7, Chloride 100, Carbon Dioxide 28.0, Anion Gap 9, BUN 9, Creatinine 0.54 L, Estim Creat Clear Calc 95.00, Est GFR (MDRD) Non-Af 103, BUN/Creatinine Ratio 16.2, Glucose 130 H, Calcium 9.2, TSH 0.654, Free T4 1.10, Free T3 pg/dL 2.0 L Micro: Microbiology 09/03/24 17:10 Mucosa - Nasopharyngeal Respiratory Panel (PCR) - Final 09/03/24 17:10 Mucosa - Nasopharyngeal SARS-CoV-2, Influenza & RSV (PCR) - Final ABG Data ABG results: ABG 09/03/24 14:11 Specimen Type GABRIEL Sample Site Not entered O2 % 2.0 VBG pH 7.35 VBG pO2 46 H VBG HCO3 36 H VBG Total CO2 38 H VBG O2 Sat (Calc) 77 H VBG Base Excess 10 H POC Mix VBG pCO2 Pt Tmp 65.6 H O2 Delivery Device Cannula Radiography Diagnostic Testing: Radiology Impression Chest X-Ray 09/03/24 13:24 IMPRESSION: Moderate bilateral pleural effusions. Reading Location: [facility] Chest CT 09/03/24 16:08 IMPRESSION: Moderate bilateral pleural effusions with compressive atelectasis in the bilateral lower lobes. Can not exclude developing infiltrate or superimposed neoplasm. Mild emphysematous changes primarily in the upper lobes. Mild coronary artery calcification. Other nonacute findings detailed above. [facility] Physical Exam Narrative General: Alert, oriented, no apparent distress HEENT: Atraumatic, normocephalic Eyes: Anicteric, normal conjunctiva, extraocular movements grossly intact Neck: Supple Respiratory: Fairly normal respiratory effort but does have diffuse expiratory wheezes and somewhat dull at the bases Cardiovascular: Regular rate and rhythm GI: Soft, nontender, nondistended Extremities: No edema Musculoskeletal: Moving all extremities Neuro: No overt focal neurological deficits Skin: No rashes appreciated Psych: Cooperative Assessment & Plan Assessment/Plan (1) COPD exacerbation: PLAN: Plan Patient is a 79-year-old gentleman admitted with progressive shortness of breath diagnosed with COPD with acute exacerbation. 1. Acute hypoxia ? Due to combination of CHF and COPD with acute exacerbation. CT of the chest demonstrated Moderate bilateral pleural effusions with compressive atelectasis in the bilateral lower lobes. Can not exclude developing infiltrate or superimposed neoplasm. Mild emphysematous changes primarily in the upper lobes. Mild coronary artery calcification. Placed on supplemental oxygen admitted to a monitored bed for subsequent management 2. COPD with acute exacerbation ? Admitted to monitored bed managed with systemic steroid, bronchodilator treatment as well as antibiotic therapy. Patient was placed on supplemental oxygen titrated to keep saturation greater than 90 3. Acute congestive heart failure ? CT demonstrated moderate bilateral pleural effusion. Patient started on diuretic therapy in addition to strict input and output, daily weight, fluid restriction as well as diuretic therapy with furosemide echo ordered for EF assessment 4. Moderate bilateral pleural effusion ? Secondary to acute congestive heart failure patient started on furosemide do expect response to therapy 5. Hypothyroidism ? Patient is on methimazole 6. Tobacco dependence ? Counseled on cessation, offered nicotine patch for tobacco cravings 7. DVT prophylaxis ? On enoxaparin Time spent in the patient's overall evaluation,decision-making process, review of diagnostic data, adjustment of management, discussion with other providers, nursing nursing and ancillary staff involved in patient's care documentation, 50 Minutes Charges/Coding Visit Charges Inpatient E&M: 63235 [facility] Hosp L3
[2024-09-04] MEDS: 0.9% Saline Lock 10 ML Syringe IV ×2 (14:50→20:42)
[2024-09-04] MEDS: Furosemide 40 MG/4 ML Vial IV ×2 (14:50→20:30)
[2024-09-04] MEDS: guaiFENesin 600 MG Tablet PO (20:30)
[2024-09-05] VITALS (13 sets, daily range): BP systolic 112–129; BP diastolic 63–75; PULSE 84–104; RESP 16–22; TEMP 36.4–36.6; O2SAT 86–96; BMI 28.5
[2024-09-05] MEDS: Ipratropium/Albuterol Sulfate 3 ML AMPUL.NEB INHALATION ×6 (03:57→23:00)
[2024-09-05] MEDS: 0.9% Saline Lock 10 ML Syringe IV ×2 (06:03→22:16)
[2024-09-05] MEDS: Furosemide 40 MG/4 ML Vial IV (06:03)
[2024-09-05] MEDS: Methylprednisolone Sod Succ 40 MG/ML VIAL IV ×3 (06:03→22:16)
[2024-09-05 06:09] LABS: Absolute Lymphocyte Count 0.64 X10^3/uL (0.83-4.51); Absolute Neutrophil Count 10.7 X10^3/uL (2.0-7.7); Basophil# 0.02 X10^3/uL; Basophil% 0.2 % (0-1); Eosinophil# 0.01 X10^3/uL; Eosinophils% 0.1 % (0-5); Hemoglobin 14.2 g/dL (13.0-16.5); Lymphocyte # 0.64 X10^3/ul (0.83-4.51); Lymphocyte % 5.2 % (19-41); Mean Corp Hgb Conc 31.6 g/dL (32-36); Mean Corpuscular Hgb 28.6 pg (27.0-32.0); Mean Corpuscular Volume 90.7 fL (80-94); Mean Platelet Vol. 10.2 fl (6.2-12.0); Monocyte# 0.82 X10^3/uL; Monocyte% 6.7 % (0-10); NRBC Flagged by Analyzer 0 % (0-5); Neutrophil # 10.74 X10^3/uL (2.7-7.7); Neutrophil % 87.2 % (47-70); Platelet Count 309 K/mm3 (150-450); RBC Distribution Width CV 13.3 % (11.6-14.6); Red Blood Count 4.96 M/mm3 (4.6-6.2); White Blood Count 12.3 K/mm3 (4.4-11.0)
[2024-09-05 06:25] LABS: Anion Gap 10 (5-15); BUN 17 mg/dL (4-19); BUN/Creat Ratio 25.9 RATIO (10-20); Calcium,Total 9.3 mg/dL (7.6-11.0); Carbon Dioxide 32.2 mmol/L (21.0-32.0); Chloride 96 mmol/L (98-108); Cholesterol 178 mg/dL (<=200); Creatinine, Serum 0.66 mg/dL (0.70-1.20); EST Glomerular Filtration Rate 97 (>60); Estimated Creatinine Clearance 95.09 ml/min (50-250); Glucose 120 mg/dL (70-99); High Density Lipoprotein 58 mg/dL; Low Density Lipoprotein Calc. 109 mg/dL; Magnesium 2.2 mg/dL (1.5-2.2); Phosphorus 3.7 mg/dL (2.7-4.5); Potassium 4.6 mmol/L (3.3-5.1); Sodium Level 138 mmol/L (133-145); Triglycerides 57 mg/dL; Very Low Density Lipoprotein 11 mg/dL (5-40); cholesterol:hdl ratio screen 3.06
--- NOTE | 2024-09-05 08:14 | PN.HOSP_ITS ---
Reason for Visit Reason for Visit: Diagnoses Chronic obstructive pulmonary disease with (acute) exacerbation (09/03/24) Subjective Subjective Patient seen still remains on supplemental oxygen currently on 3 L flow per minute echo demonstrated EF of 60%. Objective Data Objective Data Vital Signs: Vital Signs Temp Pulse Resp BP Pulse Ox O2 Del Method O2 Flow Rate 98 F 93 18 129/75 H 92 Nasal Cannula 3 09/05/24 02:00 09/05/24 03:58 09/05/24 03:58 09/05/24 02:00 09/05/24 03:59 09/05/24 03:59 09/05/24 03:59 Oxygen Flow Rate (L/min) 3 Oxygen Delivery Method Nasal Cannula Weight: 97.5 kg Body Mass Index (BMI) 28.5 Intake & Output: Intake and Output for Last 24 Hours 09/03/24 09/04/24 09/05/24 23:59 23:59 23:59 Intake Total 2100 / 2460 480 / 480 Output Total 1500 / 2500 1600 / 1600 Balance 600 / -40 -1120 / -1120 Lab / Micro Data 09/05/24 05:28 09/05/24 05:28 Labs: Laboratory Results - last 24 hr 09/05/24 05:28: WBC 12.3 H, RBC 4.96, Hgb 14.2, Hct 45.0, MCV 90.7, MCH 28.6, M CHC 31.6 L, RDW Std Deviation 44.0 H, RDW Coeff of Carole 13.3, Plt Count 309, MPV 10.2, Immature Gran % (Auto) 0.600, Neut % (Auto) 87.2 H, Lymph % (Auto) 5.2 L, Bracken % (Auto) 6.7, Eos % (Auto) 0.1, Baso % (Auto) 0.2, Absolute Neuts (auto) 10.7 H, Absolute Lymphs (auto) 0.64 L, Nucleated RBC % 0, Sodium 138, Potassium 4.6, Chloride 96 L, Carbon Dioxide 32.2 H, Anion Gap 10, BUN 17, Creatinine 0.66 L, Estim Creat Clear Calc 95.09, Est GFR (MDRD) Non-Af 97, BUN/Creatinine Ratio 25.9 H, Glucose 120 H, Calcium 9.3, Phosphorus 3.7, Magnesium 2.2, Triglycerides 57, Cholesterol 178, LDL Cholesterol, Calc 109, VLDL Cholesterol 11, HDL Cholesterol 58, Cholesterol/HDL Ratio 3.06 Micro: Microbiology 09/03/24 17:10 Mucosa - Nasopharyngeal Respiratory Panel (PCR) - Final 09/03/24 17:10 Mucosa - Nasopharyngeal SARS-CoV-2, Influenza & RSV (PCR) - Final Radiography Diagnostic Testing: Radiology Impression Echocardiogram 09/03/24 16:08 Interpretation Summary Normal LV size. Left ventricular systolic function is normal. The left ventricular ejection fraction is 60 %. Contrast injection was performed. Ordering Physician: Vibha Matias Referring Physician: THIAGO LOVING Performed By: Mariajose Cardozo RDCS Physical Exam Narrative GENERAL: cooperative HEENT: Atraumatic; normocephalic EYES; Anicteric, Normal Conjunctiva NECK; supple, normal thyroid, RESPIRATORY: Diminished to auscultation CARDIOVASCULAR: Regular S1 S2, GI: soft, normoactive bowel sounds, : No Renal angle tenderness; EXTREMITIES: No edema, no clubbing, MUSCULOSKELETAL: no muscle wasting NEURO: Awake; no lateralizing signs. SKIN: No Rash PSYCH; Flat affect Assessment & Plan Assessment/Plan (1) COPD exacerbation: PLAN: Plan Patient is a 79-year-old gentleman admitted with progressive shortness of breath diagnosed with COPD with acute exacerbation. 1. Acute hypoxia ? Due to combination of CHF and COPD with acute exacerbation. CT of the chest demonstrated Moderate bilateral pleural effusions with compressive atelectasis in the bilateral lower lobes. Can not exclude developing infiltrate or superimposed neoplasm. Mild emphysematous changes primarily in the upper lobes. Mild coronary artery calcification. Placed on supplemental oxygen admitted to a monitored bed for subsequent management ? 09/05/2024 ; patient remains on supplemental oxygen requesting to be discharged plan is for patient to undergo 6-minute oxygen requirement assessment prior to making a decision regarding disposition 2. COPD with acute exacerbation ? Admitted to monitored bed managed with systemic steroid, bronchodilator treatment as well as antibiotic therapy. Patient was placed on supplemental oxygen titrated to keep saturation greater than 90 3. Acute congestive heart failure ? CT demonstrated moderate bilateral pleural effusion. Patient started on diuretic therapy in addition to strict input and output, daily weight, fluid restriction as well as diuretic therapy with furosemide echo ordered for EF assessment ?09/05/2024; patient responded to diuretic therapy. 2D echo obtained did show ; N ormal LV size. Left ventricular systolic function is normal. The left ventricular ejection fraction is 60 %. Patient is in negative fluid balance did decrease dose of diuretic therapy 4. Moderate bilateral pleural effusion ? Secondary to acute congestive heart failure patient started on furosemide do expect response to therapy 5. Hypothyroidism ? Patient is on methimazole 6. Tobacco dependence ? Counseled on cessation, offered nicotine patch for tobacco cravings 7. DVT prophylaxis ? On enoxaparin Time spent in the patient's overall evaluation,decision-making process, review of diagnostic data, adjustment of management, discussion with other providers, nursing nursing and ancillary staff involved in patient's care documentation, 38 Minutes Charges/Coding Visit Charges Inpatient E&M: 77972 Subs Hosp L2
[2024-09-05] MEDS: Methimazole 5 MG Tablet PO (09:55)
[2024-09-05] MEDS: guaiFENesin 600 MG Tablet PO ×2 (09:55→22:16)
[2024-09-05] MEDS: Azithromycin 250 MG Tablet 500 MG PO (09:55)
[2024-09-06 03:50] VITALS: BMI 28.4
[2024-09-06 04:00] VITALS: BP 117/74; PULSE 88; RESP 18; TEMP 36.6; O2SAT 92
[2024-09-06 05:30] LABS: Basophil# 0.01 X10^3/uL; Basophil% 0.1 % (0-1); Eosinophil# 0.01 X10^3/uL; Eosinophils% 0.1 % (0-5); Hematocrit 44.1 % (40-54); Hemoglobin 13.7 g/dL (13.0-16.5); Lymphocyte % 4.4 % (19-41); Mean Corp Hgb Conc 31.1 g/dL (32-36); Mean Corpuscular Hgb 28.5 pg (27.0-32.0); Mean Corpuscular Volume 91.9 fL (80-94); Mean Platelet Vol. 10.2 fl (6.2-12.0); Monocyte# 0.68 X10^3/uL; NRBC Flagged by Analyzer 0 % (0-5); Neutrophil # 9.98 X10^3/uL (2.7-7.7); Neutrophil % 88.8 % (47-70); POSITIVE DIFFERENTIAL YES; Platelet Count 296 K/mm3 (150-450); RBC Distribution Width CV 13.2 % (11.6-14.6); RBC Distribution Width SD 44.8 fl (35.1-43.9); White Blood Count 11.3 K/mm3 (4.4-11.0)
[2024-09-06] MEDS: Methylprednisolone Sod Succ 40 MG/ML VIAL IV (06:03)
[2024-09-06] MEDS: 0.9% Saline Lock 10 ML Syringe IV (06:04)
[2024-09-06 06:08] LABS: Anion Gap 11 (5-15); BUN 24 mg/dL (4-19); BUN/Creat Ratio 38.3 RATIO (10-20); Calcium,Total 8.7 mg/dL (7.6-11.0); Carbon Dioxide 29.3 mmol/L (21.0-32.0); Chloride 96 mmol/L (98-108); Creatinine, Serum 0.63 mg/dL (0.70-1.20); EST Glomerular Filtration Rate 98 (>60); Estimated Creatinine Clearance 95.18 ml/min (50-250); Glucose 118 mg/dL (70-99); Potassium 4.4 mmol/L (3.3-5.1); Sodium Level 136 mmol/L (133-145)
[2024-09-06] MEDS: Ipratropium/Albuterol Sulfate 3 ML AMPUL.NEB INHALATION ×2 (06:55→10:45)
[2024-09-06 06:56] VITALS: PULSE 84; RESP 19; O2SAT 95
[2024-09-06 10:37] VITALS: BP 140/70; PULSE 95; RESP 18; TEMP 36.6; O2SAT 94
--- NOTE | 2024-09-06 10:41 | DS.PCM_ITS ---
Providers Date of Admission: 09/03/24 Date of Discharge: 09/06/24 Primary Care Physician: Dr. Cheryl Morgan MD Reason For Visit: COPD EXACERBATION, HYPOXIA Diagnosis Discharge Diagnosis (1) COPD exacerbation: Status: Resolved Code(s): J44.1 - Chronic obstructive pulmonary disease with (acute) exacerbation Plan Patient is a 79-year-old gentleman admitted with progressive shortness of breath diagnosed with COPD with acute exacerbation. 1. Acute hypoxia ? Due to combination of CHF and COPD with acute exacerbation. CT of the chest demonstrated Moderate bilateral pleural effusions with compressive atelectasis in the bilateral lower lobes. Can not exclude developing infiltrate or superimposed neoplasm. Mild emphysematous changes primarily in the upper lobes. Mild coronary artery calcification. Placed on supplemental oxygen admitted to a monitored bed for subsequent management ? 09/05/2024 ; patient remains on supplemental oxygen requesting to be discharged plan is for patient to undergo 6-minute oxygen requirement assessment prior to making a decision regarding disposition ? 09/06/2024 I have reviewed the oxygen testing, and this patient qualifies for the home equipment and portability. The patient is mobile in the home and the community. 2. COPD with acute exacerbation ? Admitted to monitored bed managed with systemic steroid, bronchodilator treatment as well as antibiotic therapy. Patient was placed on supplemental oxygen titrated to keep saturation greater than 90 3. Acute congestive heart failure ? CT demonstrated moderate bilateral pleural effusion. Patient started on diuretic therapy in addition to strict input and output, daily weight, fluid restriction as well as diuretic therapy with furosemide echo ordered for EF assessment ?09/05/2024; patient responded to diuretic therapy. 2D echo obtained did show ; N ormal LV size. Left ventricular systolic function is normal. The left ventricular ejection fraction is 60 %. Patient is in negative fluid balance did decrease dose of diuretic therapy 4. Moderate bilateral pleural effusion ? Secondary to acute congestive heart failure patient started on furosemide do expect response to therapy 5. Hypothyroidism ? Patient is on methimazole 6. Tobacco dependence ? Counseled on cessation, offered nicotine patch for tobacco cravings 7. DVT prophylaxis ? On enoxaparin Time spent in the patient's overall evaluation,decision-making process, review of diagnostic data, adjustment of management, discussion with other providers, nursing nursing and ancillary staff involved in patient's care documentation, 38 Minutes Medications at Discharge Home Medications methimazole 5 mg tablet 5 mg PO QDAY #90 tabs 04/26/24 fluticasone furoate 100 mcg-vilanterol 25 mcg/dose inhalation powder (Breo Ellipta) 1 inh inhalation DAILY 09/03/24 azithromycin 250 mg tablet 500 mg (2 x 250 mg) PO Q24 5 days #10 tabs 09/06/24 furosemide 40 mg tablet 40 mg PO DAILY 30 days #30 tabs 09/06/24 guaifenesin 600 mg tablet, extended release 12 hr (Mucinex) 600 mg PO BID 10 days #20 tabs 09/06/24 prednisone 20 mg tablet 20 mg PO BID 7 days #14 tabs 09/06/24 Physical Exam Narrative GENERAL: cooperative HEENT: Atraumatic; normocephalic EYES; Anicteric, Normal Conjunctiva NECK; supple, normal thyroid, RESPIRATORY: Diminished to auscultation CARDIOVASCULAR: Regular S1 S2, GI: soft, normoactive bowel sounds, : No Renal angle tenderness; EXTREMITIES: No edema, no clubbing, MUSCULOSKELETAL: no muscle wasting NEURO: Awake; no lateralizing signs. SKIN: No Rash PSYCH; Flat affect Weight / BMI Weight Weight: 97.7 kg Body Mass Index (BMI) 28.4 ABG / Lab / Microbiology Data 09/06/24 04:32 09/06/24 04:32 Laboratory: Laboratory Results - last 24 hr 09/06/24 04:32: WBC 11.3 H, RBC 4.80, Hgb 13.7, Hct 44.1, MCV 91.9, MCH 28.5, M CHC 31.1 L, RDW Std Deviation 44.8 H, RDW Coeff of Carole 13.2, Plt Count 296, MPV 10.2, Immature Gran % (Auto) 0.600, Neut % (Auto) 88.8 H, Lymph % (Auto) 4.4 L, [place] % (Auto) 6.0, Eos % (Auto) 0.1, Baso % (Auto) 0.1, Absolute Neuts (auto) 10.0 H, Absolute Lymphs (auto) 0.50 L, Nucleated RBC % 0, Sodium 136, Potassium 4.4, Chloride 96 L, Carbon Dioxide 29.3, Anion Gap 11, BUN 24 H, Creatinine 0.63 L, Estim Creat Clear Calc 95.18, Est GFR (MDRD) Non-Af 98, BUN/Creatinine Ratio 38.3 H, Glucose 118 H, Calcium 8.7 Microbiology: Microbiology 09/04/24 11:07 Sputum, Expectorated/Coughed Gram Stain - Final 09/04/24 11:07 Sputum, Expectorated/Coughed Respiratory Culture - Preliminary Streptococcus pneumoniae 09/03/24 17:10 Mucosa - Nasopharyngeal Respiratory Panel (PCR) - Final 09/03/24 17:10 Mucosa - Nasopharyngeal SARS-CoV-2, Influenza & RSV (PCR) - Final D/C Instructions Discharge Diet: No restrictions Discharge Activity: Return to Normal Activity Call your doctor if you observe: Fever of 101 or Higher, Shortness of breath, Fainting spells and Chest pain DC O2, CPAP, BIPAP Needs Home O2 Discharge instructions: Yes Type of respiratory needs?: Oxygen Oxygen frequency: With Ambulation Oxygen liters per minute during Ambulation: 5 and Other (rest) Other oxygen liters per minute: 2L Other oxygen frequency: Continuous DC home with Oxygen: Yes Home O2 MD Review: I have reviewed the oxygen testing, and the patient qualifies for home oxygen equipment and portability. The patient is mobile in the home and the community. Meaningful Use Info Meaningful Use Meaningful Use Diagnoses (Choose all that apply): CHF CHF GENIA/ARB ordered at discharge?: No Reason GENIA/ARB not ordered?: Not indicated Documented LVEF (%): 60 Ischemic Stroke Statin Dosing Therapy Reference: STATIN DOSE THERAPY REFERENCE: * Patients > 75 years receive moderate or high dose statin therapy. * Patients 75 years or YOUNGER should receive HIGH intensity statin dose unless contraindicated. You will be required to document reason for non-treatment if statin daily dose does not meet guidelines. HIGH DOSE STATIN THERAPY DAILY Atorvastatin > than or = to 40 mg Rosuvastatin > than or = to 20 mg Amlodipine + Atorvastatin > than or = to 2.5/40 mg Ezetimibe + Simvastatin 10/80 mg Simvastatin 80mg Discharge Plan Admission Admit Date/Time: 09/03/24 15:49 Attending Provider: Ty Cunningham Primary Care Provider: Cheryl Morgan Consulting Providers: Vibha Matias Discharge Orders/Prescriptions Prescriptions: New furosemide 40 mg Tablet 40 mg PO DAILY 30 Days Qty: 30 0RF azithromycin 250 mg Tablet 500 mg PO Q24 5 Days Qty: 10 0RF guaifenesin [Mucinex] 600 mg Tablet Extended Release 12hr 600 mg PO BID 10 Days Qty: 20 0RF prednisone 20 mg tablet 20 mg PO BID 7 Days Qty: 14 0RF Continued methimazole 5 mg tablet 5 mg PO QDAY Qty: 90 1RF fluticasone furoate-vilanterol [Breo Ellipta] 100-25 mcg/dose blister with device 1 inh inhalation DAILY Referrals / Follow Up: Cheryl Morgan MD [Primary Care Provider] - Within 2 Weeks Winston Dexter MD [Med Staff - Active Staff] - Within 2 Weeks Disposition Disposition (needs filled in before D/C Order can be placed): Home, Self Care
[2024-09-06] MEDS: Methimazole 5 MG Tablet PO (10:42)
[2024-09-06] MEDS: Azithromycin 250 MG Tablet 500 MG PO (10:42)
[2024-09-06] MEDS: Furosemide 40 MG Tablet PO (10:42)
[2024-09-06] MEDS: guaiFENesin 600 MG Tablet PO (10:42)
[2024-09-06 10:46] VITALS: PULSE 90; RESP 18
--- NOTE | 2024-09-06 11:05 | CASEMGMT ---
Addendum entered by Naif Romero 09/06/24 12:42: Home O2 testing has been completed. Pt qualifies for O2 @ 2 L/M @ rest and 4 L/M w/exertion. Script obtained from Dr Cunningham and sent to [facility] via [employer]. Awaiting delivery of O2 to room. Original Note: RN DILLON NOTE: Discharge order is in. RN CM to room. Introduced self and role. Pt sitting on edge of bed. and daughter @ bedside. Pt feels safe to discharge home. He is aware home O2 testing will be completed again today to determine if he qualifies for home O2. Educated on home O2 set-up process and questions answered. He verifies he would like to use [facility] if he does need home O2 and he verifies they do have a pulse ox @ home. Questions answered. Pt has hx of smoking, stating he just quit again about 2 weeks ago. Discussed dangers of smoking w/O2 in the home, should he need O2 @ dc and he voices understanding. He states does plan on smoking again and declines wanting smoking cessation resources. Pt and family aware Rx's have been sent to [facility] and they can pick these up today. They are also aware to f/u with PCP in 2 weeks and of referral to Dr Dexter in 2 weeks. Pt meets criteria for palliative referral per [facility] screening tool. SATURNINO CARRANZA broached the topic of palliative care w/pt and family and questions answered. Pt and both state they are familiar w/palliative care, as family member has had this in the past. Pt and are not interested in a referral at this time, but did appreciate written information on it and state they will f/u with PCP if they have interest in a referral in the future. inquired about AD. Made aware this can be completed w/SW @ [facility]. Questions answered. She states they may be interested in completing this in the future as an OP & aware to call SW to schedule this if they choose to complete. They deny having further dc needs, concerns, or questions. Mc JUSTICEN SATURNINO CM
--- NOTE | 2024-09-06 11:46 | PHA.DC.MC.R ---
Pharmacy [facility] has performed discharge medication reconciliation and counseling for this patient. 1. AZITHROMYCIN 500MG PO DAILY X 5 DAYS 2. FUROSEMIDE 40MG PO DAILY 3. GUAIFENESIN 600MG PO BID 4. PREDNISONE 20MG PO BID X 7 DAYS The patient's discharge medication list was reviewed for discrepancies and discrepancies were resolved. The patient was counseled on the following discharge medications and changes in medications for homegoing were reviewed. The Reason for Use, instructions for use, and potential side effects were reviewed for all new medications. The patient's questions regarding all of their medications were answered. The patient was able to verbally demonstrate an understanding of their discharge medications. Medications at Discharge Home Medications methimazole 5 mg tablet 5 mg PO QDAY thyroid #90 tabs 04/26/24 fluticasone furoate 100 mcg-vilanterol 25 mcg/dose inhalation powder (Breo Ellipta) 1 inh inhalation DAILY breathing 09/03/24 azithromycin 250 mg tablet 500 mg (2 x 250 mg) PO Q24 5 days #10 tabs 09/06/24 furosemide 40 mg tablet 40 mg PO DAILY 30 days #30 tabs 09/06/24 guaifenesin 600 mg tablet, extended release 12 hr (Mucinex) 600 mg PO BID 10 days #20 tabs 09/06/24 prednisone 20 mg tablet 20 mg PO BID 7 days #14 tabs 09/06/24
[2024-09-06 12:26] VITALS: O2SAT 86; O2SAT 88; O2SAT 91; O2SAT 94
== END 2024-09-06 14:10 | disposition home or self-care (01) | DRG 191 ==
LOC: ED 15:19 → PCU 15:55
PROVIDERS: Physician Assistant; Admitting Provider Internal Medicine; Emergency Provider Emergency Medicine; PCP Internal Medicine; Visit Provider Internal Medicine
DX: J44.1 Chronic obstructive pulmonary disease with (acute) exacerbation (principal); J90 Pleural effusion, not elsewhere classified; I50.9 Heart failure, unspecified; E03.9 Hypothyroidism, unspecified; I44.0 Atrioventricular block, first degree; I25.10 Atherosclerotic heart disease of native coronary artery without angina pectoris; F17.200 Nicotine dependence, unspecified, uncomplicated; Z79.51 Long term (current) use of inhaled steroids; Z79.890 Hormone replacement therapy; Z79.899 Other long term (current) drug therapy; Z79.52 Long term (current) use of systemic steroids; Z11.52 Encounter for screening for COVID-19
CPT/HCPCS: 36415; 71046; 71250; 80048; 80061; 82803; 83735; 83880; 84100; 84439; 84443; 84481; 84484; 85025; 87070; 87077; 87186; 87205; 87631; 87633; 93005; 93306; 94640; 94668; 94760; 99285; Q9957; A4216; C8929; J1940

== ENCOUNTER → 2024-09-18 | Outpatient (CLI) | payer MEDICARE, SELFPAY ==
[2024-09-18 15:16] LABS: Absolute Lymphocyte Count 1.42 X10^3/uL (0.83-4.51); Absolute Neutrophil Count 12.4 X10^3/uL (2.0-7.7); Basophil# 0.09 X10^3/uL; Basophil% 0.5 % (0-1); Eosinophil# 0.59 X10^3/uL; Eosinophils% 3.6 % (0-5); Hematocrit 48.7 % (40-54); Hemoglobin 15.3 g/dL (13.0-16.5); Lymphocyte # 1.42 X10^3/ul (0.83-4.51); Lymphocyte % 8.6 % (19-41); Mean Corp Hgb Conc 31.4 g/dL (32-36); Mean Corpuscular Hgb 28.5 pg (27.0-32.0); Mean Corpuscular Volume 90.7 fL (80-94); Mean Platelet Vol. 10.7 fl (6.2-12.0); Monocyte# 1.79 X10^3/uL; Monocyte% 10.8 % (0-10); NRBC Flagged by Analyzer 0 % (0-5); Neutrophil # 12.39 X10^3/uL (2.7-7.7); Neutrophil % 75.2 % (47-70); POSITIVE DIFFERENTIAL YES; Platelet Count 243 K/mm3 (150-450); RBC Distribution Width CV 13.5 % (11.6-14.6); Red Blood Count 5.37 M/mm3 (4.6-6.2); White Blood Count 16.5 K/mm3 (4.4-11.0)
[2024-09-18 15:22] LABS: Differential Indicated SCAN CRITERIA MET
[2024-09-18 15:58] LABS: AST(SGOT) 26 U/L (<=37); Alanine Aminotransfer ALT/SGPT 31 U/L (<=46); Albumin, Serum 3.8 g/dL (3.4-4.8); Alkaline Phosphatase 74 U/L (40-129); Anion Gap 11 (5-15); BUN 14 mg/dL (4-19); BUN/Creat Ratio 18.6 RATIO (10-20); Calcium,Total 9.2 mg/dL (7.6-11.0); Carbon Dioxide 28.3 mmol/L (21.0-32.0); Chloride 93 mmol/L (98-108); Creatinine, Serum 0.74 mg/dL (0.70-1.20); EST Glomerular Filtration Rate 93 (>60); Globulin 3.8 g/dL (2.2-4.2); Glucose 92 mg/dL (70-99); Potassium 4.7 mmol/L (3.3-5.1); Protein, Total 7.6 g/dL (5.9-8.4); Sodium Level 133 mmol/L (133-145); Total Bilirubin 0.72 mg/dL (0.00-1.30)
[2024-09-18 22:56] LABS: Differential Comment SCANNED; Pathologist Review May foll
== END | disposition home or self-care (01) ==
LOC: BIMLAB 14:34
PROVIDERS: PCP Internal Medicine; Referring Provider Internal Medicine; Visit Provider Internal Medicine
DX: J44.9 Chronic obstructive pulmonary disease, unspecified (principal); J96.01 Acute respiratory failure with hypoxia; J90 Pleural effusion, not elsewhere classified
CPT/HCPCS: 36415; 80053; 85025

== ENCOUNTER → 2024-09-19 | Outpatient (CLI) | payer MEDICARE, SELFPAY ==
--- NOTE | 2024-09-19 13:30 | RAD_ITS ---
PROCEDURE: CHEST PA AND LATERAL 09/19/2024 REASON FOR EXAM: EFFUSION TECHNIQUE: Frontal and lateral views of the chest. COMPARISON: 09/03/2024. FINDINGS: Minimal decrease in bilateral pleural effusions. Minimal decrease in passive atelectatic airspace disease of the lower lobes. Unremarkable cardiac silhouette. Unchanged atheromatous plaques of the aorta. Unchanged moderate diffuse spondylosis. RAD/Chest PA and Lateral IMPRESSION: Minimal decrease in bilateral pleural effusions. Minimal decrease in passive atelectatic airspace disease of the lower lobes. Unremarkable cardiac silhouette. Reading [facility]
== END | disposition home or self-care (01) ==
LOC: MTRAD 13:30
PROVIDERS: PCP Internal Medicine; Referring Provider Internal Medicine; Visit Provider Internal Medicine
DX: J90 Pleural effusion, not elsewhere classified (principal)
CPT/HCPCS: 71046

== ENCOUNTER 2024-10-23 10:26 | Inpatient (IN) | payer MEDICARE, SELFPAY ==
[2024-10-23] VITALS (18 sets, daily range): BP systolic 109–151; BP diastolic 60–91; PULSE 89–103; RESP 18–28; TEMP 36.6–37; O2SAT 91–96; BMI 29.7; BMI 28.5
--- NOTE | 2024-10-23 | FLU_PTH ---
PATIENT: BRIGETTE RUSSELL LOC: MS3 U#:[id number] AGE/SX: 79/M ROOM: [facility] [place] RE10/23/[address]: Dr. Davis Dougherty DO : 1945 BED: 1 DIS: 10/24/2024 SPEC #: [id number] RECD: 10/25/24 10:30 STATUS: SANDRA REQ #: [id number] DAVINA: 10/23/24 00:[address]: Davis Dougherty DEPT: CYTOLOGY RECD BY: Dameon Cox ENTERED: 10/25/24 11:20 SP TYPE: Fluid OTHR DR: Dr. Cheryl Morgan MD Tissues: A - Sputum Procedures: Special Stain Group I Surgery Specimen Level II AFB Stain (control) Cytospin Fluid HEADER OPERATION: Not noted PRE-OP DIAGNOSIS: TISSUE SUBMITTED: A- Sputum DIAGNOSIS CYTOLOGY A. Sputum (cytospin and smear): * No malignant cells identified. * Acute inflammation. * AFB stain is negative for acid fast bacilli. CYTOLOGY STUDY Slides are reviewed. All matched controls reacted appropriately. These tests were developed and their performance characteristics determined by [facility]. They may not have been cleared or approved by the U.S. Food and Drug Administration. The FDA has determined that such clearance or approval is not necessary.? The above immunohistochemical/dualISH?markers are ordered and reviewed by the Pathologist. CYTOLOGY GROSS A. Received is 5 ml of emery-mucoid fluid labeled with the patient's name and and designated per the requisition as Sputum. Submitted for cytology (cytospin and smear) preparation. 10/25/2024 CPT: 21189, 69415
--- NOTE | 2024-10-23 10:48 | EKG12_ITS ---
Test Reason : SOB Blood Pressure : */* mmHG Vent. Rate : 95 BPM Atrial Rate : 95 BPM P-R Int : 220 ms QRS Dur : 96 ms QT Int : 358 ms P-R-T Axes : 27 90 29 degrees QTcB Int : 449 ms Sinus rhythm with 1st degree A-V block Rightward axis Borderline ECG Confirmed by MARK RODRIGUEZ, ALMA ([id number]), editor producer VILLA GÓMEZ ([id number]) on 10/24/2024 1:25:06 PM Referred By: Confirmed By: ALMA FLORES MD
--- NOTE | 2024-10-23 10:50 | EX.ED.DYSGE1 ---
HPI History of Present Illness Chief Complaint: Shortness of Breath Narrative Narrative: Patient is a 79-year-old male with a past medical history of COPD, asthma, essential tremor who presents to the [facility] part with chief complaint of cough and shortness of breath. According to at bedside ever since he was in the hospital at the end of August he has had slow progressive decline. She states that he quit smoking and after this things progressively worsen. She states that he used to do everything and now he can barely walk any amount of distance without becoming very short of breath and they noted that they do have oxygen at home and noted that he has been wearing this more than normal. They state that his oxygen levels at home have been in the 80s. States that they called the on-call physician/nurse line and they advised them to come to the emergency department to be evaluated. Patient states that he has not been on any steroids recently [facility] Medical History Essential tremor Cataract COPD (chronic obstructive pulmonary disease) Thyroid disease Asthma Home Medications ?Medication ?Instructions ?Recorded ?Last Taken ?Type methimazole 5 mg tablet 5 mg PO QDAY thyroid #90 tabs 04/26/24 10/23/24 Rx furosemide 40 mg tablet 40 mg PO DAILY 30 days #30 tabs 10/17/24 10/23/24 Rx albuterol sulfate 90 mcg/actuation 2 inh inhalation Q4H PRN shortness 10/23/24 Unknown History breath activated powder inhaler of breath cyanocobalamin (vitamin B-12) 50 50 mcg PO DAILY 10/23/24 Unknown History mcg lozenges (Vitamin B-12) ferrous sulfate 325 mg (65 mg 325 mg PO DAILY 10/23/24 Unknown History iron) tablet (Iron (ferrous sulfate)) fluticasone furoate 100 1 inh inhalation DAILY 10/23/24 10/22/24 History mcg-vilanterol 25 mcg/dose inhalation powder (Breo Ellipta) guaifenesin 600 mg tablet, 600 mg PO BID 10/23/24 10/23/24 History extended release 12 hr (Mucus Relief ER) Allergy/AdvReac Type Severity Reaction Status Date / Time shellfish derived AdvReac Mild Nausea/Vom/ Verified 10/23/24 10:29 Diarrhea Family History Mother Colon cancer Sister Colon cancer Surgical History H/O cataract extraction H/O shoulder surgery H/O sinus surgery Social History adopted: No household members: spouse number of children: 2 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 status: retired 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 [employer] pets and animals: Yes (1) pets and animals: dog(s) Smoking Status: Former smoker Tobacco: How many years used: 40 quit status: considering quitting alcohol intake: never substance use type: does not use caffeine: Yes (1) Type: coffee frequency: does not exercise seatbelt use: always do you feel safe at home: Yes ROS ROS ED ROS Narrative Constitutional: Denies fevers, chills, headaches Eyes: Denies changes double vision blurry vision Cardiovascular: Denies chest pain or palpitations Respiratory: Complains of cough and shortness of breath as noted above Abdomen: Denies abdominal pain nausea vomit diarrhea : Denies urinary symptoms Neurological: Denies numbness, aches, tingling Musculoskeletal: Denies back pain Skin: Denies rashes or lesions EXAM Physical Exam Narrative Exam Narrative: . General: Patient lying in bed rest comfortably did not appear to be acute distress Head: Atraumatic, normocephalic Eyes: PERRL bilaterally, EOMI bilateral, no conjunctival injection noted Neck: Soft, supple, trachea midline Cardiovascular: Patient tachycardic with a regular rhythm Respiratory: End expiratory wheezing noted bilaterally Abdomen: Soft, nondistended, nontender to palpation Extremities: +4/5 strength noted in the bilateral upper and lower extremities, radial pulse +2/4 in both extremities, no pedal edema on exam Neurological: Patient follow commands knew that he was at [facility] year is 2024 Skin: Warm, dry, tact no rashes or lesions noted Const Vital Signs: 10/23/24 10:27 10/23/24 10:29 10/23/24 10:35 Temperature 98 F 98.0 F Temperature Source Oral Oral Pulse Rate 103 H 93 Respiratory Rate 18 24 H Respiratory Effort Short of Breath Respiratory Depth Normal Respiratory Pattern Tachypnea Blood Pressure 109/79 145/85 H Blood Pressure Mean 89 105 Pulse Ox 92 95 Oxygen Delivery Method Room Air Nasal Cannula Nasal Cannula Oxygen Flow Rate (L/min) 2 4 10/23/24 10:48 10/23/24 10:59 10/23/24 11:00 Temperature Temperature Source Pulse Rate 89 Respiratory Rate 28 H Respiratory Effort Respiratory Depth Respiratory Pattern Tachypnea Blood Pressure Blood Pressure Mean Pulse Ox 96 96 Oxygen Delivery Method Nasal Cannula Nasal Cannula Oxygen Flow Rate (L/min) 2 2 10/23/24 11:26 10/23/24 11:29 10/23/24 12:00 Temperature 98.1 F 97.8 F Temperature Source Oral Oral Pulse Rate 89 90 97 Respiratory Rate 24 H 24 H 28 H Respiratory Effort Respiratory Depth Respiratory Pattern Blood Pressure 115/72 115/72 151/78 H Blood Pressure Mean 86 86 102 Pulse Ox 96 94 94 Oxygen Delivery Method Nasal Cannula Nasal Cannula Nasal Cannula Oxygen Flow Rate (L/min) 2 2 2 10/23/24 12:00 Temperature 97.8 F Temperature Source Oral Pulse Rate 97 Respiratory Rate 28 H Respiratory Effort Respiratory Depth Respiratory Pattern Blood Pressure 151/78 H Blood Pressure Mean 102 Pulse Ox 94 Oxygen Delivery Method Nasal Cannula Oxygen Flow Rate (L/min) 2 MDM MDM MDM Narrative Medical decision making narrative: Patient is a 79-year-old male who presented to the emergency department with chief complaint of cough and shortness of breath. On the differential diagnosis includes but not limited to COPD exacerbation, pneumonia, pneumothorax, neoplasm. Once workup is obtained reviewed he will be reevaluated. Patient will be given a dose of prednisone as well as DuoNebs and 1 L of fluid as there is concern for a hypervolemic state therefore 30 cc/kg bolus of IV fluids will not be given. Previous records were reviewed and including a CT chest back in August that was read as infiltrate versus developing neoplasm therefore added on a CT of the chest today. Patient CBC was reviewed showed no evidence leukocytosis white blood count normal at 10.6, hemoglobin 13.4, platelet count was 265. Patient INR normal at 1, PT of 13.5. Patient sodium normal 136, potassium normal at 4, creatinine was normal at 0.61. Patient's AST and ALT were 16 and 8 respectively, troponin was noted to be normal at 9 proBNP normal at 86. Patient urinalysis reviewed showed no evidence of infection. Patient CTA of the chest reviewed showed a large left pleural effusion with volume loss in the left hemithorax due to compressive atelectasis small to moderate right pleural effusion with basilar atelectasis line hyperplasia of the adrenal glands right retrocrural lymphadenopathy. Patient's EKG reviewed and showed sinus rhythm with evidence of first-degree AV block with ME interval of 220 with a rate of 95 bpm. At this point time do believe the patient will warrant admission for draining of his pleural effusions and cytology of this as his previous CT scan showed pneumonia versus mass he has a longtime smoker this pleural effusion could be malignant in nature. Will discuss case with hospitalist for admission. Spoke with hospitalist Dr. Dougherty who accept patient for admission. Patient was notified is agreeable to plan all course concerns answered at bedside. Lab Data Labs: Laboratory Results - last 24 hr 10/23/24 10/23/24 10/23/24 10:41 11:12 12:00 WBC 10.6 RBC 4.71 Hgb 13.4 Hct 42.9 MCV 91.1 MCH 28.5 MCHC 31.2 L RDW Std Deviation 45.9 H RDW Coeff of Carole 13.6 Plt Count 265 MPV 9.7 Immature Gran % (Auto) 0.400 Neut % (Auto) 72.4 H Lymph % (Auto) 10.7 L [place] % (Auto) 9.9 Eos % (Auto) 6.0 H Baso % (Auto) 0.6 Absolute Neuts (auto) 7.7 Absolute Lymphs (auto) 1.13 Nucleated RBC % 0 PT 13.5 INR 1.0 APTT 31.0 Sodium 136 Potassium 4.0 Chloride 93 L Carbon Dioxide 33.9 H Anion Gap 9 BUN 11 Creatinine 0.61 L Estim Creat Clear Calc 97.14 Est GFR (MDRD) Non-Af 99 BUN/Creatinine Ratio 17.4 Glucose 123 H Lactic Acid < 1.0 Calcium 9.5 Total Bilirubin 0.53 AST 16 ALT 8 Alkaline Phosphatase 81 Troponin T High Sens 9 D NT pro BNP II 86 Total Protein 7.9 Albumin 3.8 Globulin 4.0 Albumin/Globulin Ratio 0.9 Urine Color Yellow Urine Clarity Clear Urine pH 7.0 Ur Specific [place] 1.005 Urine Protein 15 H Urine Glucose (UA) Normal Urine Ketones Negative Urine Occult Blood Negative Urine Nitrite Negative Urine Bilirubin Negative Urine Urobilinogen Normal Ur Leukocyte Esterase 100 H Urine RBC 0 SEEN Urine WBC 5-10 SEEN Ur Squamous Epith Cells 0 SEEN Urine Bacteria 0 SEEN Urine Mucus 0 SEEN Radiography Diagnostic Testing: Clinical Impression(s) from Imaging Studies Chest CTA 10/23/24 11:25 IMPRESSION: Large left pleural effusion with volume loss in the left hemithorax due to compressive atelectasis. Small to moderate right pleural effusion with basilar atelectasis. Line hyperplasia of the adrenal glands. Right retrocrural lymphadenopathy. Reading Location: [facility] Discharge Plan Triage Chief Complaint: Shortness of Breath ED Provider: Cristofer Miranda Dx/Rx/DC Orders Clinical Impression: Acute hypoxic respiratory failure, COPD (chronic obstructive pulmonary disease), Bilateral pleural effusion Prescriptions: No Action methimazole 5 mg tablet 5 mg PO QDAY Qty: 90 1RF fluticasone furoate-vilanterol [Breo Ellipta] 100-25 mcg/dose blister with device 1 inh inhalation DAILY guaifenesin [Mucus Relief ER] 600 mg tablet extended release 12hr 600 mg PO BID albuterol sulfate 90 mcg/actuation aerosol powdr breath activated 2 inh inhalation Q4H PRN (Reason: shortness of breath) Vitamin B-12 50 mcg lozenge 50 mcg PO DAILY ferrous sulfate [Iron (ferrous sulfate)] 325 mg (65 mg iron) tablet 325 mg PO DAILY furosemide 40 mg tablet 40 mg PO DAILY 30 Days Qty: 30 0RF Primary Care Provider: Cheryl Morgan Referrals: Cheryl Morgan MD [Primary Care Provider] - Print Language: Vietnamese Disposition Disposition: Acute Care Hospital [facility]
[2024-10-23] MEDS: Ipratropium/Albuterol Sulfate 3 ML AMPUL.NEB INHALATION ×2 (10:58→20:10)
[2024-10-23 11:03] LABS: Absolute Lymphocyte Count 1.13 X10^3/uL (0.83-4.51); Absolute Neutrophil Count 7.7 X10^3/uL (2.0-7.7); Basophil# 0.06 X10^3/uL; Basophil% 0.6 % (0-1); Eosinophil# 0.63 X10^3/uL; Hematocrit 42.9 % (40-54); Hemoglobin 13.4 g/dL (13.0-16.5); Lymphocyte # 1.13 X10^3/ul (0.83-4.51); Lymphocyte % 10.7 % (19-41); Mean Corp Hgb Conc 31.2 g/dL (32-36); Mean Corpuscular Hgb 28.5 pg (27.0-32.0); Mean Corpuscular Volume 91.1 fL (80-94); Mean Platelet Vol. 9.7 fl (6.2-12.0); Monocyte# 1.05 X10^3/uL; Monocyte% 9.9 % (0-10); NRBC Flagged by Analyzer 0 % (0-5); Neutrophil # 7.67 X10^3/uL (2.7-7.7); Neutrophil % 72.4 % (47-70); Platelet Count 265 K/mm3 (150-450); RBC Distribution Width CV 13.6 % (11.6-14.6); RBC Distribution Width SD 45.9 fl (35.1-43.9); Red Blood Count 4.71 M/mm3 (4.6-6.2); White Blood Count 10.6 K/mm3 (4.4-11.0)
[2024-10-23 11:17] LABS: Prothrombin Time (Protime)PT. 13.5 SECONDS (11.7-14.9)
--- NOTE | 2024-10-23 11:25 | CT_ITS ---
PROCEDURE: CTA CHEST W/WO CONTRAST 10/23/2024 REASON FOR EXAM: SOB, COUGH TECHNIQUE: CTA axial imaging of the chest with intravenous contrast. Multiplanar and multisequence images were obtained. PATIENT PREPARATION: Per protocol One or more dose reduction techniques were used (e.g., Automated exposure control, adjustment of the mA and/or kV according to patient size, use of iterative reconstruction technique). CONTRAST: Isovue-300 VOLUME: 100 mL RADIATION DOSE SUMMARY: CTDlvol: 17.21 mGy DLP: 718.09 mGycm COMPARISON: Prior study dated September 03, 2024. FINDINGS: Hardware: None Lymph nodes: Right retrocrural lymphadenopathy. Small mediastinal lymph nodes. Heart: Coronary artery calcification. Thoracic Aorta: No thoracic aortic aneurysm or dissection. Pulmonary Vessels: No evidence of pulmonary embolism. Lungs and Airways: Large left pleural effusion with compressive atelectasis of the left lower lobe. Small right pleural effusion with right basilar compressive atelectasis. Upper Abdomen: Hyperplasia of the adrenal glands more prominent on the left side. Bones: Degenerative changes of the thoracic spine. CT/CTA Chest W/WO Contrast IMPRESSION: Large left pleural effusion with volume loss in the left hemithorax due to comp ressive atelectasis. Small to moderate right pleural effusion with basilar atelectasis. Line hyperp lasia of the adrenal glands. Right retrocrural lymphadenopathy. Reading Location: [place] [address]
[2024-10-23 11:28] LABS: Troponin T High Sensitivity 9 ng/L (<=22)
[2024-10-23 11:32] LABS: ALB/GLOB Ratio 0.9 RATIO (0.9-2.4); AST(SGOT) 16 U/L (<=37); Alanine Aminotransfer ALT/SGPT 8 U/L (<=46); Albumin, Serum 3.8 g/dL (3.4-4.8); Alkaline Phosphatase 81 U/L (40-129); Anion Gap 9 (5-15); BUN 11 mg/dL (4-19); BUN/Creat Ratio 17.4 RATIO (10-20); Calcium,Total 9.5 mg/dL (7.6-11.0); Carbon Dioxide 33.9 mmol/L (21.0-32.0); Chloride 93 mmol/L (98-108); Creatinine, Serum 0.61 mg/dL (0.70-1.20); EST Glomerular Filtration Rate 99 (>60); Estimated Creatinine Clearance 97.14 ml/min (50-250); Glucose 123 mg/dL (70-99); Pro- Brain NATRIURETIC PEPTIDE 86 pg/mL (<=1800); Protein, Total 7.9 g/dL (5.9-8.4); Sodium Level 136 mmol/L (133-145); Total Bilirubin 0.53 mg/dL (0.00-1.30)
[2024-10-23] MEDS: 0.9% Normal Saline (1000mL) 1,000 ML 999 ML IV (11:39)
[2024-10-23] MEDS: predniSONE 20 MG Tablet 60 MG PO (11:39)
[2024-10-23 11:57] LABS: Lactic Acid < 1.0 mmol/L (0.0-2.0)
[2024-10-23 12:10] LABS: Bacteria 0 SEEN /hpf (None Seen); Mucous, Urine 0 SEEN /hpf (<or=2+); Squamous Epithelial Cells - UA 0 SEEN /hpf (0-5)
[2024-10-23 12:12] LABS: Color, Urine Yellow (Yellow); Glucose, Dipstick Normal (Normal); Ketone-Dipstick Negative (Negative); Leukocyte Esterase-Dipstick 100 /ul (Negative); Nitrite-Dipstick Negative (Negative); Occult Blood-Urine Negative /ul (Negative); Protein-Dipstick 15 mg/dl (Negative); Specific Gravity, Urine 1.005 (1.002-1.030); Urine Bilirubin Dipstick Negative (Negative); Urine Clarity Clear (Clear); Urine Urobilinogen Normal (Normal)
[2024-10-23 12:26] LABS: Red Blood Cells-Urine 0 SEEN /hpf (0-5); White Blood Cells 5-10 SEEN /hpf (0-5)
--- NOTE | 2024-10-23 12:43 | US_ITS ---
PROCEDURE: THORACENTESIS W US 10/23/2024 REASON FOR EXAM: LEFT PLEURAL EFFUSION/RIGHT PLEURAL EFFUSION TECHNIQUE: The procedure as well as the benefits and possible complications including infection and bleeding were explained to the patient. Informed consent was obtained. The overlying skin was prepped and draped in the usual sterile fashion. Following local anesthetic application, a 5 [place] catheter was placed into the left pleural space. 1850 mL of clear fluid aspirated. A 100 mL sample was sent to the laboratory. COMPARISON: Prior chest radiograph done earlier in the day. FINDINGS: 1850 mL of clear sandy colored fluid was aspirated. US/Thoracentesis W US IMPRESSION: Successful left thoracentesis. No evidence of pneumothorax. The patient tolerated the procedure well. Reading Location: [place] [address]
--- NOTE | 2024-10-23 13:13 | NURSING ---
HAS-BLED score of 1.
--- NOTE | 2024-10-23 13:30 | FLU_PTH ---
PATIENT: BRIGETTE RUSSELL LOC: MS3 U#:[id number] AGE/SX: 79/M ROOM: [facility] [place] RE10/23/[address]: Dr. Davis Dougherty DO : 1945 BED: 1 DIS: 10/24/2024 SPEC #: [id number] RECD: 10/23/24 14:24 STATUS: SANDRA REQ #: [id number] DAVINA: 10/23/24 13:[address]: Davis Dougherty DEPT: CYTOLOGY RECD BY: Dameon Cox ENTERED: 10/24/24 08:40 SP TYPE: Fluid OTHR DR: Dr. Cheryl Mrogan MD Tissues: A - THORACIC FLUID Procedures: Immunohistochemical Stains Special Stain Group II Surgery Specimen Level IV Cytospin Fluid IHC Stain ADDITIONAL HEADER OPERATION: Thoracentesis fluid PRE-OP DIAGNOSIS: Pleural effusion - left TISSUE SUBMITTED: A- Thoracentesis fluid for cytology DIAGNOSIS CYTOLOGY A. Pleural fluid, thoracentesis (cytospin and cellblock): * No malignant cells identified. * Mesothelial cells with acute and chronic inflammation and eosinophils. * Calretinin (IHC) highlights occasional mesothelial cells. * CD45 (IHC) highlights lymphocytes. * MOC31 (IHC) is negative for epithelial cells. CYTOLOGY STUDY Slides are reviewed. All matched controls reacted appropriately. These tests were developed and their performance characteristics determined by [facility]. They may not have been cleared or approved by the U.S. Food and Drug Administration. The FDA has determined that such clearance or approval is not necessary.? The above immunohistochemical/dualISH?markers are ordered and reviewed by the Pathologist. CYTOLOGY GROSS A. Received is 80 ml of yellow-cloudy fluid labeled with the patient's name and and designated per the requisition as Thoracentesis fluid. Submitted for cytology and cell block preparation. Mr 10/24/2024 CPT: 85839, 66609, 94961, [id number]
[2024-10-23 13:39] LABS: LDH 219 U/L (87-241)
[2024-10-23] MEDS: Lidocaine 2% (20 ml mdv) 20 ML Vial INFILT (13:40)
--- NOTE | 2024-10-23 13:45 | RAD_ITS ---
EXAM: Chest AP inspiration expiration views. CLINICAL HISTORY: Status post left thoracentesis. COMPARISON: Prior chest radiograph done earlier in the day. TECHNIQUE: AP inspiration expiration views were obtained. FINDINGS: Status post left thoracentesis. No evidence of pneumothorax. Residual bilateral pleural-parenchymal changes worse on the left side. RAD/Chest Insp/Exp 2 View IMPRESSION: Status post left thoracentesis. No evidence of pneumothorax. Reading Location: [facility]-
[2024-10-23 14:36] LABS: Pathologist Comment/Body Fluid May follow
[2024-10-23 14:47] LABS: Body Fluid Mononuclear WBC # 0.864 10^3/uL; Body Fluid Mononuclear WBC % 26.3 %; Body Fluid Polynuclear WBC # 2.411 10^3/uL; Body Fluid Polynuclear WBC % 73.7 %; Body Fluid Total Cells Counted 3.305 10^3/ul; Red Cell Count/Body Fluid 0.004 10^6/ul; White Blood Count/Body Fluid 3.275 10^3/uL
[2024-10-23 14:56] LABS: Auto B Fluid Analyzer BKGD Ct COUNTS W/IN LIMITS (W/IN LIMITS); Source- Body Fluid THORACENTESIS
[2024-10-23 14:57] LABS: Appearance/Body Fluid TURBID; Color/Body Fluid YELLOW
[2024-10-23 15:24] LABS: LDH,Body Fluid 308 Units/L (Not Establ.); Protein, Body Fluid 5.2 g/dL (Not Establ.)
--- NOTE | 2024-10-23 15:24 | NURSING ---
text sent to dr. parks as noted troponins were not collected in the ER. lab was already called, aware they will come and draw set as awaiting response from physician. talked with [facility]- RN aware she will update [facility] ER Charge Nurse
[2024-10-23 15:59] LABS: Glucose, Body Fluid 107 mg/dL (Not Establ.)
[2024-10-23 16:17] LABS: Troponin T High Sens 2 HR 7 ng/L (<=22)
[2024-10-23 19:23] LABS: Lymphocytes 15 %; Macrophages 8 %; Monocytes 13 %; Neutrophil (Segs) 62 %; Other Cell Type/BF 2 %
[2024-10-23 19:27] LABS: Body Fluid QC Type(s) BF1Q
--- NOTE | 2024-10-23 19:34 | PCM.HP.STD ---
HPI - General General Date of Admission: 10/23/24 Date of Service: 10/23/24 Chief Complaint: Shortness of breath HPI Narrative BRIGETTE RUSSELL, is a 79 M who presents to the emergency room at [facility] with chief complaint of shortness of breath, patient is on home oxygen at 3 L at all times, he states he was placed on this several weeks ago the first part of September 2024.. Exact diagnosis for the oxygen is not known by the patient. Patient states that his O2 sat was dropping into the 80s at home on his 3 L of oxygen. Workup in the emergency room included a CBC which showed a normal white blood cell count and hemoglobin, chemistry profile was unremarkable, chest CTA showed a large left pleural effusion with volume loss in the left hemithorax due to compressive atelectasis, there is a small to moderate right pleural effusion with basilar atelectasis noted. There was retrocrural lymphadenopathy noted. Patient's beta natruretic peptide was normal. I talked to the emergency room physician requested that the patient go down for a left thoracentesis, 1850 cc of clear fluid was removed without incident. Patient will be admitted to [place] [id number], he will need to undergo a right thoracentesis, studies were ordered on the fluid. [facility] Medical History Essential tremor Cataract COPD (chronic obstructive pulmonary disease) Thyroid disease Asthma Home Medications ?Medication ?Instructions ?Recorded ?Last Taken ?Type methimazole 5 mg tablet 5 mg PO QDAY thyroid #90 tabs 04/26/24 10/23/24 Rx furosemide 40 mg tablet 40 mg PO DAILY 30 days #30 tabs 10/17/24 10/23/24 Rx albuterol sulfate 90 mcg/actuation 2 inh inhalation Q4H PRN shortness 10/23/24 Unknown History breath activated powder inhaler of breath cyanocobalamin (vitamin B-12) 50 50 mcg PO DAILY 10/23/24 Unknown History mcg lozenges (Vitamin B-12) ferrous sulfate 325 mg (65 mg 325 mg PO DAILY 10/23/24 Unknown History iron) tablet (Iron (ferrous sulfate)) fluticasone furoate 100 1 inh inhalation DAILY 10/23/24 10/22/24 History mcg-vilanterol 25 mcg/dose inhalation powder (Breo Ellipta) guaifenesin 600 mg tablet, 600 mg PO BID 10/23/24 10/23/24 History extended release 12 hr (Mucus Relief ER) Allergy/AdvReac Type Severity Reaction Status Date / Time shellfish derived AdvReac Mild Nausea/Vom/ Verified 10/23/24 10:29 Diarrhea Family History Mother Colon cancer Sister Colon cancer Surgical History H/O cataract extraction H/O shoulder surgery H/O sinus surgery Social History adopted: No household members: spouse number of children: 2 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 status: retired 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 [employer] pets and animals: Yes (1) pets and animals: dog(s) Smoking Status: Former smoker Tobacco: How many years used: 40 quit status: considering quitting alcohol intake: never substance use type: does not use caffeine: Yes (1) Type: coffee frequency: does not exercise seatbelt use: always do you feel safe at home: Yes ROS Constitutional Constitutional: Reports fatigue; Denies anorexia, change in weight, chills, fever(s), night sweats or weakness Eyes Eyes: Denies blurry vision, change in vision, discharge from eye(s) or eye pain ENT HEENT: Denies dysphagia Cardiovascular Cardiovascular: Reports dyspnea on exertion; Denies chest pain, claudication, edema or palpitations Respiratory/Chest Respiratory/Chest: Reports cough, dyspnea, shortness of breath at rest and shortness of breath with exertion; Denies hemoptysis Gastrointestinal Gastrointestinal: Denies abdominal pain, constipation, diarrhea, hematemesis, hematochezia, melena, nausea or vomiting Genitourinary Genitourinary: Denies dysuria, hematuria, urinary frequency, urinary hesitancy, urinary incontinence or urinary urgency Musculoskeletal Musculoskeletal: Denies back pain, joint pain, joint stiffness, joint swelling, myalgias or neck pain Neurologic Neurologic: Denies abnormal gait, abnormal speech, dizziness, focal weakness, headache(s), loss of vision, numbness, other visual disturbances, paresthesias, syncope or tingling Psychiatric Psychiatric: Denies anxiety, cognitive impairment, depression, irritability, mood swings or suicidal ideation Endocrine Endocrinology: Denies change in body appearance, cold intolerance, excessive sweating, heat intolerance, polydipsia or polyuria Hematologic/Lymphatic Hematologic/Lymphatic: Denies none, anemia, easy bleeding, easy bruising or lymphadenopathy Allergic/Immunologic Allergic/Immunologic: Denies rhinitis, urticaria, eczemia or asthma Vital Signs Vital Signs Vital Signs: 10/23/24 10:27 10/23/24 10:29 10/23/24 10:35 Temperature 98 F 98.0 F Temperature Source Oral Oral Pulse Rate 103 H 93 Respiratory Rate 18 24 H Respiratory Effort Short of Breath Respiratory Depth Normal Respiratory Pattern Tachypnea Blood Pressure 109/79 145/85 H Blood Pressure Mean 89 105 Blood Pressure Source Blood Pressure Position Blood Pressure Location Pulse Ox 92 95 Oxygen Delivery Method Room Air Nasal Cannula Nasal Cannula Oxygen Flow Rate (L/min) 2 4 10/23/24 10:48 10/23/24 10:59 10/23/24 11:00 Temperature Temperature Source Pulse Rate 89 Respiratory Rate 28 H Respiratory Effort Respiratory Depth Respiratory Pattern Tachypnea Blood Pressure Blood Pressure Mean Blood Pressure Source Blood Pressure Position Blood Pressure Location Pulse Ox 96 96 Oxygen Delivery Method Nasal Cannula Nasal Cannula Oxygen Flow Rate (L/min) 2 2 10/23/24 11:26 10/23/24 11:29 10/23/24 12:00 Temperature 98.1 F 97.8 F Temperature Source Oral Oral Pulse Rate 89 90 97 Respiratory Rate 24 H 24 H 28 H Respiratory Effort Respiratory Depth Respiratory Pattern Blood Pressure 115/72 115/72 151/78 H Blood Pressure Mean 86 86 102 Blood Pressure Source Blood Pressure Position Blood Pressure Location Pulse Ox 96 94 94 Oxygen Delivery Method Nasal Cannula Nasal Cannula Nasal Cannula Oxygen Flow Rate (L/min) 2 2 2 10/23/24 12:00 10/23/24 13:00 10/23/24 13:38 Temperature 97.8 F 98.1 F Temperature Source Oral Oral Pulse Rate 97 96 98 Respiratory Rate 28 H 28 H 18 Respiratory Effort Short of Breath Respiratory Depth Respiratory Pattern Blood Pressure 151/78 H 143/91 H 136/74 H Blood Pressure Mean 102 108 Blood Pressure Source Blood Pressure Position Blood Pressure Location Pulse Ox 94 92 Oxygen Delivery Method Nasal Cannula Nasal Cannula Oxygen Flow Rate (L/min) 2 2 10/23/24 13:45 10/23/24 13:51 10/23/24 14:47 Temperature 98.6 F Temperature Source Oral Pulse Rate 95 95 89 Respiratory Rate 18 18 24 H Respiratory Effort Respiratory Depth Respiratory Pattern Blood Pressure 135/68 H 126/71 H 116/72 Blood Pressure Mean 86 Blood Pressure Source Blood Pressure Position Blood Pressure Location Pulse Ox 96 Oxygen Delivery Method Nasal Cannula Nasal Cannula Nasal Cannula Oxygen Flow Rate (L/min) 2 2 2 10/23/24 15:35 10/23/24 15:47 Temperature 97.8 F Temperature Source Oral Pulse Rate 89 Respiratory Rate 20 H Respiratory Effort Normal Respiratory Depth Respiratory Pattern Blood Pressure 114/91 H Blood Pressure Mean 98 Blood Pressure Source Monitor Blood Pressure Position Sitting Blood Pressure Location Left Arm Pulse Ox 93 Oxygen Delivery Method Nasal Cannula Nasal Cannula Oxygen Flow Rate (L/min) 3 3 Weight Weight: 97.976 kg Body Mass Index (BMI) 28.5 Physical Exam Const alert, oriented x3, no apparent distress, average body habitus and healthy appearing General Appearance: cooperative, well kempt and well developed Orientation / Consciousness: awake, oriented to person, oriented to place and oriented to time HEENT normocephalic, head/scalp atraumatic, hearing grossly normal bilaterally and moist oral mucous membranes Eyes PERRL, EOMs intact bilaterally and conjunctivae normal Neck supple, no JVD, thyroid normal and no carotid bruits General: trachea midline Resp normal respiratory effort, no retractions and no use of accessory muscles Resp Narrative: There are diminished breath sounds noted bilaterally Auscultation: Negative for rales, rhonchi or wheezes Cardio regular rate, regular rhythm, S1 normal heart sound, S2 normal heart sound, no murmurs, no rub and no gallops GI normal to inspection, nondistended, normoactive bowel sounds, soft to palpation, non-tender and non-distended Extremity no clubbing, cyanosis or edema Skin no rashes or lesions noted General Skin Exam: no breakdown Neuro oriented x3, CN's II-XII intact bilaterally, no focal motor deficits and no sensory deficits noted Sensorium / Orientation: awake and alert Speech: speech normal Psych affect normal Results Lab / Micro Data 10/23/24 10:41 10/23/24 10:41 Labs: Laboratory Results - last 24 hr 10/23/24 10:41: WBC 10.6, RBC 4.71, Hgb 13.4, Hct 42.9, MCV 91.1, MCH 28.5, MCHC 31.2 L, RDW Std Deviation 45.9 H, RDW Coeff of Carole 13.6, Plt Count 265, MPV 9.7, Immature Gran % (Auto) 0.400, Neut % (Auto) 72.4 H, Lymph % (Auto) 10.7 L, [place] % (Auto) 9.9, Eos % (Auto) 6.0 H, Baso % (Auto) 0.6, Absolute Neuts (auto) 7.7, Absolute Lymphs (auto) 1.13, Nucleated RBC % 0, PT 13.5, INR 1.0, APTT 31.0, Sodium 136, Potassium 4.0, Chloride 93 L, Carbon Dioxide 33.9 H, Anion Gap 9, BUN 11, Creatinine 0.61 L, Estim Creat Clear Calc 97.14, Est GFR (MDRD) Non-Af 99, BUN/Creatinine Ratio 17.4, Glucose 123 H, Calcium 9.5, Total Bilirubin 0.53, AST 16, ALT 8, Alkaline Phosphatase 81, Lactate Dehydrogenase 219, Troponin T High Sens 9 D, NT pro BNP II 86, Total Protein 7.9 10/23/24 10:41: Total Protein Cancelled, Albumin 3.8, Globulin 4.0 10/23/24 10:41: Globulin Cancelled, Albumin/Globulin Ratio 0.9 10/23/24 10:41: Albumin/Globulin Ratio Cancelled 10/23/24 11:12: Lactic Acid < 1.0 10/23/24 12:00: Urine Color Yellow, Urine Clarity Clear, Urine pH 7.0, Ur Specific [place] 1.005, Urine Protein 15 H, Urine Glucose (UA) Normal, Urine Ketones Negative, Urine Occult Blood Negative, Urine Nitrite Negative, Urine Bilirubin Negative, Urine Urobilinogen Normal, Ur Leukocyte Esterase 100 H, Urine RBC 0 SEEN, Urine WBC 5-10 SEEN, Ur Squamous Epith Cells 0 SEEN, Urine Bacteria 0 SEEN, Urine Mucus 0 SEEN 10/23/24 15:15: Troponin T Hi Sens 2 Hr 7 10/23/24 : Fluid Source THORACENTESIS, Fluid Color YELLOW, Fluid Appearance TURBID, Fluid WBC 3.275, Fluid RBC 0.004, Fluid Tot Cell Count 3.305, Fld Polynuclear WBCs # 2.411, Fld Polynuclear WBCs % 73.7, Fluid Mononuclear WBCs 0.864, Fld Mononuclear WBCs % 26.3, Fluid Neutrophils 62, Fluid Lymphocytes 15, Fluid Monocytes 13, Fluid Macrophages 8, Fluid Other Cells 2, Fl Pathologist Comment May follow, Fluid Glucose 107, Fluid Total Protein 5.2, Fluid LDH 308, Fluid Comment 2 SEE COMMENT Micro: Microbiology 10/23/24 Unknown Fluid - Pleural (Lung) Gram Stain - Final 10/23/24 11:45 Mucosa - Nose SARS-CoV-2, Influenza & RSV (PCR) - Final Imaging Radiology Impression Chest CTA 10/23/24 11:25 IMPRESSION: Large left pleural effusion with volume loss in the left hemithorax due to compressive atelectasis. Small to moderate right pleural effusion with basilar atelectasis. Line hyperplasia of the adrenal glands. Right retrocrural lymphadenopathy. Reading Location: [facility]-1 Thoracentesis Ultrasound 10/23/24 12:43 IMPRESSION: Successful left thoracentesis. No evidence of pneumothorax. The patient tolerated the procedure well. Reading Location: [facility]--1 Chest X-Ray 10/23/24 13:45 IMPRESSION: Status post left thoracentesis. No evidence of pneumothorax. Reading Location: [facility]-1 Assessment & Plan Assessment/Plan (1) Hypoxia: PLAN: Plan 1. Hypoxia on a backdrop of bilateral pleural effusions with worsening dyspnea-patient will be admitted to [facility], again a left thoracentesis was performed with resulting 1850 cc of clear fluid removed, patient will need a right thoracentesis performed also. The etiology of the pleural fluid appears to be related to congestive heart failure, patient was discharged from the hospital on September 06 of this year with a diagnosis of pleural effusions from congestive heart failure. #2 chronic obstructive pulmonary disease-patient will receive her aerosol treatments, pulse ox will be monitored #3 hyperthyroidism-patient is on Tapazole Total clinical time spent by myself addressing the patient's medical issues, reviewing all of his data, and collaborating with patient's care team: 75 minutes Charges/Coding Visit Charges Inpatient E&M: 80383 Init Hosp L3
[2024-10-23] MEDS: Budesonide Respules 0.5 MG/2 ML AMPUL.NEB. INHALATION (20:10)
[2024-10-23] MEDS: Heparin Injection (Vial) 5,000 UNIT/ML VIAL 5000 UNIT SC (21:25)
[2024-10-23] MEDS: Furosemide 20 MG/2 ML VIAL IV (21:25)
[2024-10-23] MEDS: 0.9% Saline Lock 10 ML Syringe IV (21:25)
[2024-10-23] MEDS: guaiFENesin 600 MG Tablet PO (21:26)
[2024-10-24] VITALS (12 sets, daily range): BP systolic 108–129; BP diastolic 62–75; PULSE 80–93; RESP 16–18; TEMP 36.6–37.1; O2SAT 92–97
[2024-10-24] MEDS: Ipratropium/Albuterol Sulfate 3 ML AMPUL.NEB INHALATION ×3 (01:35→13:15)
[2024-10-24] MEDS: 0.9% Saline Lock 10 ML Syringe IV (05:14)
[2024-10-24] MEDS: Furosemide 20 MG/2 ML VIAL IV (05:15)
[2024-10-24 05:47] LABS: Anion Gap 9 (5-15); BUN 11 mg/dL (4-19); BUN/Creat Ratio 18.8 RATIO (10-20); Carbon Dioxide 32.7 mmol/L (21.0-32.0); Chloride 95 mmol/L (98-108); Creatinine, Serum 0.56 mg/dL (0.70-1.20); EST Glomerular Filtration Rate 102 (>60); Glucose 107 mg/dL (70-99); Potassium 3.5 mmol/L (3.3-5.1); Sodium Level 137 mmol/L (133-145)
--- NOTE | 2024-10-24 07:00 | US_ITS ---
PROCEDURE: THORACENTESIS W US 10/24/2024 REASON FOR EXAM: RIGHT PLEURAL EFFUSION TECHNIQUE: The procedure as well as the benefits and possible complications including infection, bleeding and pneumothorax were explained to the patient. Informed consent was obtained. The overlying skin was prepped and draped in the usual sterile fashion. Following local anesthetic application, a 5 Nigerian drainage catheter was placed into the right pleural space. 570 mL of sandy colored fluid was aspirated. The patient tolerated the procedure well. COMPARISON: None FINDINGS: 570 mL of clear sandy colored fluid was aspirated from the right pleural cavity. The patient tolerated the procedure well. US/Thoracentesis W US IMPRESSION: Successful right thoracentesis. [facility]
[2024-10-24] MEDS: Budesonide Respules 0.5 MG/2 ML AMPUL.NEB. INHALATION (07:13)
[2024-10-24] MEDS: Potassium Chloride Oral Tablet 20 MEQ PO (08:00)
[2024-10-24] MEDS: guaiFENesin 600 MG Tablet PO (08:00)
[2024-10-24 09:23] LABS: Absolute Lymphocyte Count 1.05 X10^3/uL (0.83-4.51); Absolute Neutrophil Count 8.9 X10^3/uL (2.0-7.7); Basophil# 0.07 X10^3/uL; Basophil% 0.6 % (0-1); Eosinophil# 0.55 X10^3/uL; Eosinophils% 4.7 % (0-5); Hematocrit 39.5 % (40-54); Hemoglobin 12.6 g/dL (13.0-16.5); Lymphocyte # 1.05 X10^3/ul (0.83-4.51); Lymphocyte % 8.9 % (19-41); Mean Corp Hgb Conc 31.9 g/dL (32-36); Mean Corpuscular Hgb 28.6 pg (27.0-32.0); Mean Corpuscular Volume 89.8 fL (80-94); Mean Platelet Vol. 9.7 fl (6.2-12.0); Monocyte# 1.19 X10^3/uL; Monocyte% 10.1 % (0-10); NRBC Flagged by Analyzer 0 % (0-5); Neutrophil # 8.91 X10^3/uL (2.7-7.7); Neutrophil % 75.3 % (47-70); Platelet Count 246 K/mm3 (150-450); RBC Distribution Width CV 13.5 % (11.6-14.6); RBC Distribution Width SD 44.6 fl (35.1-43.9); White Blood Count 11.8 K/mm3 (4.4-11.0)
[2024-10-24] MEDS: Heparin Injection (Vial) 5,000 UNIT/ML VIAL 5000 UNIT SC (10:08)
[2024-10-24] MEDS: Ferrous Sulfate 325 MG Tablet PO (10:09)
[2024-10-24] MEDS: Methimazole 5 MG Tablet PO (10:09)
--- NOTE | 2024-10-24 11:01 | DCINST_ITS ---
Discharge Instructions Diet Discharge Diet: No restrictions DC O2, CPAP, BIPAP needs Home O2 Discharge instructions: Yes Type of respiratory needs?: Oxygen Oxygen frequency: Continuous Continuous oxygen liters per minute: 2 L Dressing / Incision Discharge Activity: Return to Normal Activity Weight Bearing Status: Full weight bearing Follow Up Care Test Results: Test results from this visit will be discussed in further detail at your follow- up appointment, if applicable. Discharge Plan Admission Admit Date/Time: 10/23/24 14:14 Primary Reason for Your Visit: pleural effusions Attending Provider: Davis Dougherty Primary Care Provider: Cheryl Morgan Discharge Orders/Prescriptions Prescriptions: Continued methimazole 5 mg tablet 5 mg PO QDAY Qty: 90 1RF fluticasone furoate-vilanterol [Breo Ellipta] 100-25 mcg/dose blister with device 1 inh inhalation DAILY guaifenesin [Mucus Relief ER] 600 mg tablet extended release 12hr 600 mg PO BID albuterol sulfate 90 mcg/actuation aerosol powdr breath activated 2 inh inhalation Q4H PRN (Reason: shortness of breath) Vitamin B-12 50 mcg lozenge 50 mcg PO DAILY ferrous sulfate [Iron (ferrous sulfate)] 325 mg (65 mg iron) tablet 325 mg PO DAILY Discontinued furosemide 40 mg tablet 40 mg PO DAILY 30 Days Qty: 30 0RF Referrals / Follow Up: Cheryl Morgan MD [Primary Care Provider] - Alejandro Pritchard DO [Med Staff - Active Staff] - See Referral Note (October at 1045 am, get to the office at 1030 am) Disposition Disposition (needs filled in before D/C Order can be placed): Home, Self Care
--- NOTE | 2024-10-24 11:47 | CASEMGMT ---
Social Work- SW met with pt and pt to provide education on advanced directives and HCPOA/Living Will. SW introduced self and role; pt agreeable to meeting. Pt and pt asked questions and reviewed information, also inquiring into information on code status. Pt and pt wished to complete HCPOA. SW completed documents with pt and . SW provided originals to pt and , provided copies for agents, and placed pt copy in chart. SW placed copies for pt and in HIM collection bin for scan into electronic charts. Pt reports no additional needs at this time. DYLAN Castelan
--- NOTE | 2024-10-24 12:45 | CASEMGMT ---
SATURNINO CARRANZA Assessment Face to Face with patient for initial transition planning/care coordination assessment. SATURNINO CARRANZA introduced self and role at [facility], pt voices understanding. Pt is A&Ox4 and is resting comfortably in bed and is calm. Care providers, pharmacy, and demographics verified. Admitting dx: Acute Hypoxic RF LACE Strata: 2 PCP: Cheryl Morgan Specialists: Denies Preferred Pharmacy: [facility] Insurance: [facility] Prescription Benefit: Yes LNOK: Noemi (W), Won (Son) Living Arrangements: Pt lives with his in a 2 story home with 2 steps to enter ADLs/IADLs: Pt is independent Transportation: Self, DME: Home oxygen through [employer]. Verified the pt's current order states 2L continuous via [place]. Pt has a concentrator, portability that his daughter will be bringing in today, pulse ox, and nebulizer. Pt also has a shower chair, grab bars, raised toilet seat, and FWW. Denies further needs. HHC/SNF:denies hx or needs Pt?s goal: home Plan: Home, anticipate no additional needs e/f potential new oxygen Rx. Pt states that he feels safe returning home with his and denies further questions, concerns, or needs at this time. Report given to MS3 SATURNINO CARRANZA. Lonnie Noel RN, CM
--- NOTE | 2024-10-24 14:21 | NURSING ---
to radiology for procedure
[2024-10-24] MEDS: Lidocaine 2% (20 ml mdv) 20 ML Vial INFILT (14:36)
--- NOTE | 2024-10-24 14:39 | NURSING ---
to Radiology for procedure
--- NOTE | 2024-10-24 14:45 | RAD_ITS ---
EXAM: Chest PA inspiration expiration following right thoracentesis. CLINICAL HISTORY: Right pleural effusion. COMPARISON: Prior study dated October 23, 2024. TECHNIQUE: AP inspiration expiration views were obtained. FINDINGS: Status post right thoracentesis. No evidence of pneumothorax. Mild residual pleural-parenchymal changes seen at the right base. RAD/Chest Insp/Exp 2 View IMPRESSION: Status post right thoracentesis. No evidence of pneumothorax. Mild residual pleural-parenchymal changes at the right lung base. [facility]
[2024-10-24 16:23] LABS: Acid Fast Stain SEE PATHOLOGY REPORT; Cytology, Body Fluid / CSF SEE PATHOLOGY REPORT
--- NOTE | 2024-10-24 17:01 | PCM.DC.SUM ---
Providers Date of Admission: 10/23/24 Date of Discharge: 10/24/24 Primary Care Physician: Dr. Cheryl Morgan MD Reason For Visit: ACUTE HYPOXIC RESPIRATORY FAILURE, PLEURAL EFFUSIO Diagnosis Discharge Diagnosis (1) Hypoxia: Status: Acute Code(s): R09.02 - Hypoxemia Plan 1. Hypoxia on a backdrop of bilateral pleural effusions with worsening dyspnea-patient will be admitted to [facility], again a left thoracentesis was performed with resulting 1850 cc of clear fluid removed, patient will need a right thoracentesis performed also. The etiology of the pleural fluid appears to be related to congestive heart failure, patient was discharged from the hospital on September 06 of this year with a diagnosis of pleural effusions from congestive heart failure. #2 chronic obstructive pulmonary disease-patient will receive her aerosol treatments, pulse ox will be monitored #3 hyperthyroidism-patient is on Tapazole #4 bilateral pleural effusions-exudative in nature, not related to CHF, suspect underlying unknown malignancy Total clinical time spent by myself addressing the patient's medical issues, reviewing all of his data, and collaborating with patient's care team: 75 minutes Medications at Discharge Home Medications methimazole 5 mg tablet 5 mg PO QDAY thyroid #90 tabs 04/26/24 albuterol sulfate 90 mcg/actuation breath activated powder inhaler 2 inh inhalation Q4H PRN shortness of breath 10/23/24 cyanocobalamin (vitamin B-12) 50 mcg lozenges (Vitamin B-12) 50 mcg PO DAILY 10/23/24 ferrous sulfate 325 mg (65 mg iron) tablet (Iron (ferrous sulfate)) 325 mg PO DAILY 10/23/24 fluticasone furoate 100 mcg-vilanterol 25 mcg/dose inhalation powder (Breo Ellipta) 1 inh inhalation DAILY 10/23/24 guaifenesin 600 mg tablet, extended release 12 hr (Mucus Relief ER) 600 mg PO BID 10/23/24 Hospital Course Operations None Procedures Thoracentesis Summary of Care Provided Minutes Spent on Discharge: 32 Hospital Course: This 79-year-old white male was seen in the emergency room at [facility] with a chief complaint of shortness of breath. He had been admitted to [facility] approximately a month before for acute hypoxia and COPD with acute exacerbation, at that time there was noted to be moderate bilateral pleural effusions which the attending physician felt was secondary to congestive heart failure. Patient was discharged at that time to home on nasal cannula oxygen. In the emergency room, labs were obtained which showed a normal white blood cell count and hemoglobin, patient's CHEM panel was unremarkable, pro beta nitric peptide was 86, urinalysis was unremarkable, CT of the chest was performed which showed a large left pleural effusion with volume loss in the left hemithorax due to compressive atelectasis, there is a small to moderate right pleural effusion with basilar atelectasis noted. There is noted be right retrocrural lymphadenopathy. Patient was admitted to [place] [address], initially he was placed on IV Lasix due to the fact it was felt that these effusions may be due to CHF, patient underwent thoracentesis on the left side which removed 1850 of fluid, the next day he underwent a thoracentesis on the right which removed 570 mL of fluid. The first thoracentesis fluid indicated it was an exudate which ruled out congestive heart failure. Patient has a long history of smoking and it was suspected the patient has an underlying malignancy that has not been diagnosed. I discussed this with the patient and the patient's family members. I called pulmonary medicine here at [place] and made an appointment for the patient to be seen next week for follow-up, he most probably will need a bronchoscopy. On 10/24/2024, patient was seen and examined: On examination he appeared in good health and spirits. Vital signs as documented. Skin warm and dry and without overt rashes. Neck without JVD, neck was supple, trachea midline, thyroid was normal. Lungs breath sounds were distant bilaterally, normal air movement was noted, inspiratory rales are noted at the bases bilaterally heart exam notable for regular rhythm, normal sounds and absence of murmurs, rubs or gallops. Abdomen unremarkable and without evidence of organomegaly, masses, or abdominal aortic enlargement. Bowel sounds are present, abdomen is not distended. Extremities nonedematous, no cyanosis was noted, no clubbing was noted. Neuro: Cranial nerves II through XII are grossly intact, no focal motor deficits were noted, sensation to light touch and pinprick intact, motor exam 5/5 throughout. Psych: Patient is alert and oriented x3, he does not appear anxious or depressed, he does not appear agitated. Patient appears stable for discharge home on 10/24/2024 Weight / BMI Weight Weight: 97.976 kg Body Mass Index (BMI) 28.5 ABG / Lab / Microbiology Data 10/24/24 09:12 10/24/24 04:43 Laboratory: Laboratory Results - last 24 hr 10/23/24 : Acid Fast Stain SEE PATHOLOGY REPORT, Miscellaneous Cytology SEE PATHOLOGY REPORT Microbiology: Microbiology 10/23/24 11:00 Blood Culture (Wb) - Anticubital Right Blood Culture - Preliminary No growth in 48 hours. 10/23/24 11:05 Blood Culture (Wb) - Anticubital Left Blood Culture - Preliminary No growth in 48 hours. 10/23/24 Unknown Fluid - Pleural (Lung) Gram Stain - Final 10/23/24 Unknown Fluid - Pleural (Lung) Body Fluid Culture - Preliminary No growth-Final to follow 10/23/24 Unknown Fluid - Pleural (Lung) Anaerobic Culture - Preliminary No growth in 48 hours. 10/23/24 12:00 Urine, Clean Catch Urine Culture - Final Mixed Gram Positive Organisms 10/23/24 11:45 Mucosa - Nose SARS-CoV-2, Influenza & RSV (PCR) - Final Radiography Diagnostic Testing: Radiology Impression Thoracentesis Ultrasound 10/24/24 07:00 IMPRESSION: Successful right thoracentesis. Reading Location: [place] [address] Chest X-Ray 10/24/24 14:45 IMPRESSION: Status post right thoracentesis. No evidence of pneumothorax. Mild residual pleural-parenchymal changes at the right lung base. Reading Location: [place] [address] D/C Instructions Discharge Diet: No restrictions Weight Bearing Status: Full weight bearing DC O2, CPAP, BIPAP Needs Home O2 Discharge instructions: Yes Type of respiratory needs?: Oxygen Oxygen frequency: Continuous Continuous oxygen liters per minute: 2 L DC home with Oxygen: Yes Home O2 MD Review: I have reviewed the oxygen testing, and the patient qualifies for home oxygen equipment and portability. The patient is mobile in the home and the community. Meaningful Use Info Meaningful Use Meaningful Use Diagnoses (Choose all that apply): None applicable Ischemic Stroke Statin Dosing Therapy Reference: STATIN DOSE THERAPY REFERENCE: * Patients > 75 years receive moderate or high dose statin therapy. * Patients 75 years or YOUNGER should receive HIGH intensity statin dose unless contraindicated. You will be required to document reason for non-treatment if statin daily dose does not meet guidelines. HIGH DOSE STATIN THERAPY DAILY Atorvastatin > than or = to 40 mg Rosuvastatin > than or = to 20 mg Amlodipine + Atorvastatin > than or = to 2.5/40 mg Ezetimibe + Simvastatin 10/80 mg Simvastatin 80mg Discharge Plan Admission Admit Date/Time: 10/23/24 14:14 Primary Reason for Your Visit: pleural effusions Attending Provider: Davis Dougherty Primary Care Provider: Cheryl Morgan Discharge Orders/Prescriptions Prescriptions: Continued methimazole 5 mg tablet 5 mg PO QDAY Qty: 90 1RF fluticasone furoate-vilanterol [Breo Ellipta] 100-25 mcg/dose blister with device 1 inh inhalation DAILY guaifenesin [Mucus Relief ER] 600 mg tablet extended release 12hr 600 mg PO BID albuterol sulfate 90 mcg/actuation aerosol powdr breath activated 2 inh inhalation Q4H PRN (Reason: shortness of breath) Vitamin B-12 50 mcg lozenge 50 mcg PO DAILY ferrous sulfate [Iron (ferrous sulfate)] 325 mg (65 mg iron) tablet 325 mg PO DAILY Discontinued furosemide 40 mg tablet 40 mg PO DAILY 30 Days Qty: 30 0RF Referrals / Follow Up: Cheryl Morgan MD [Primary Care Provider] - Alejandro Pritchard DO [Med Staff - Active Staff] - See Referral Note (October at 1045 am, get to the office at 1030 am) Disposition Disposition (needs filled in before D/C Order can be placed): Home, Self Care Charges/Coding Visit Charges Inpatient E&M: 76544 Disch Hosp >30min
== END 2024-10-24 18:10 | disposition home or self-care (01) | DRG 187 ==
LOC: ED 12:57 → MS3 15:02
PROVIDERS: Admitting Provider Internal Medicine; Emergency Provider Emergency Medicine; PCP Internal Medicine; Visit Provider Internal Medicine
DX: J90 Pleural effusion, not elsewhere classified (principal); J98.11 Atelectasis; E03.9 Hypothyroidism, unspecified; J44.9 Chronic obstructive pulmonary disease, unspecified; E86.9 Volume depletion, unspecified; I44.0 Atrioventricular block, first degree; G25.0 Essential tremor; Z79.51 Long term (current) use of inhaled steroids; Z87.891 Personal history of nicotine dependence; R09.02 Hypoxemia; Z79.899 Other long term (current) drug therapy; Z98.890 Other specified postprocedural states; R59.0 Localized enlarged lymph nodes
CPT/HCPCS: 32555; 36415; 71046; 71275; 80048; 80053; 81001; 82945; 83605; 83615; 83880; 84157; 84484; 85025; 85610; 85730; 87015; 87040; 87070; 87075; 87086; 87088; 87116; 87205; 87206; 87631; 88108; 88302; 88305; 88312; 88313; 89050; 93005; 94640; 99252; 99285; Q9967; A4216; G0463; J1938

== ENCOUNTER → 2024-11-02 | Outpatient (CLI) | payer MEDICARE, SELFPAY ==
--- NOTE | 2024-11-02 11:40 | RAD_ITS ---
PROCEDURE: CHEST PA AND LATERAL 11/02/2024 REASON FOR EXAM: PLUERAL EFFUSION FOLLOW UP TECHNIQUE: Frontal and lateral views of the chest. COMPARISON: Prior study dated October 25, 2023. FINDINGS: Hardware: None Heart: Heart is nonenlarged. Mediastinum: Atherosclerotic calcification of the aortic arch. Lungs: Increasing bilateral pleural effusions left greater than right with bibasilar compressive atelectasis worse at the left lung base. Bones: Degenerative changes are identified within the thoracic spine. RAD/Chest PA and Lateral IMPRESSION: Progression of bilateral pleural effusions worse on the left side with bibasila r infiltration and/or atelectasis. Reading Location: [place]
[2024-11-02 13:50] LABS: Rheumatoid Factor < 10.0 IU/mL (<15)
[2024-11-03 12:08] LABS: ANTINUCLEAR ANTIBODIES DIRECT Negative (Negative)
[2024-11-06 14:08] LABS: CCP IgG Antibodies 12 units (0-19); Cytoplasmic Ab (C-ANCA) <1:20 titer (Neg:<1:20); Perinuclear Ab (P-ANCA) <1:20 titer (Neg:<1:20)
== END | disposition home or self-care (01) ==
LOC: RAD 11:36
PROVIDERS: PCP Internal Medicine; Referring Provider Internal Medicine Critical Care Medicine; Visit Provider Internal Medicine Critical Care Medicine
DX: J90 Pleural effusion, not elsewhere classified (principal)
CPT/HCPCS: 36415; 71046; 84443; 86037; 86038; 86200; 86225; 86431

== ENCOUNTER → 2024-11-07 | Outpatient (CLI) | payer MEDICARE, SELFPAY ==
--- NOTE | 2024-11-07 | FLU_PTH ---
PATIENT: BRIGETTE RUSSELL LOC: [facility]#:[id number] AGE/SX: 79/M ROOM: RE11/07/[address]: Dr. Alejandro Pritchard DO : 1945 BED: DIS: 11/07/2024 SPEC #: [id number] RECD: 11/07/24 09:09 STATUS: SANDRA DUSTY #: [id number] DAVINA: 11/07/24 00:[address]: Alejandro Pritchard DEPT: CYTOLOGY RECD BY: Dameon Cox ENTERED: 11/07/24 10:39 SP TYPE: Fluid OTHR DR: Dr. Cheryl Morgan MD Tissues: A - THORACIC FLUID Procedures: Special Stain Group II Surgery Specimen Level IV Cytospin Fluid HEADER OPERATION: Thoracentesis fluid - ultrasound guided PRE-OP DIAGNOSIS: Pleural effusion - left chest TISSUE SUBMITTED: A- Thoracentesis fluid for cytology DIAGNOSIS CYTOLOGY A. Pleural fluid, thoracentesis (cytospin, cellblock): * Atypical cells of undetermined significance. * Marked acute inflammation. CYTOLOGY STUDY Slides are reviewed. CYTOLOGY GROSS A. Received is 85 ml of yellow-cloudy fluid labeled with the patient's name and and designated per the requisition as Thoracentesis fluid. Submitted for cytology and cell block preparation. Mr 11/07/2024 CPT: 74135, [id number]
--- NOTE | 2024-11-07 07:16 | RAD_ITS ---
EXAM: CHEST INSPIRATION/EXPIRATION 2-VIEW CLINICAL HISTORY: POST THORACENTESIS EVALUATION, LEFT LUNG. COMPARISON: PA AND LATERAL CHEST DATED 11/02/2024. TECHNIQUE: AP UPRIGHT PORTABLE CHEST, INSPIRATION AND EXPIRATION. FINDINGS: No pneumothorax is demonstrated following left sided thoracentesis. Significant decrease in the left pleural effusion. Stable right pleural effusion. Heart, mediastinum, and great vessels are stable. Multilevel spondylosis. RAD/Chest Insp/Exp 2 View IMPRESSION: NO EVIDENCE OF PNEUMOTHORAX FOLLOWING LEFT SIDED THORACENTESIS. Reading Location: [place] [address]
--- NOTE | 2024-11-07 08:15 | US_ITS ---
PROCEDURE: ULTRASOUND-GUIDED DIAGNOSTIC AND THERAPEUTIC LEFT THORACENTESIS 11/07/2024 REASON FOR EXAM: ENLARGING LEFT PLEURAL EFFUSION TECHNIQUE: Real-time ultrasound imaging of LEFT lung. COMPARISON: Chest radiograph dated 11/02/2024. FINDINGS: Informed consent was obtained. The patient was prepped and draped in the usual sterile fashion. Anesthetic: Lidocaine 2% was utilized for local anesthesia. Catheter: 5 Fr, 10 cm in length [id number] Centesis Catheter. Drained fluid: 2010 mL. Fluid color: Dark yellow. Fluid clarity: Clear. Fluid disposition: 100 mL sent to the laboratory for testing. US/Thoracentesis W US IMPRESSION: Successful left thoracentesis under ultrasound guidance. Specimen was sent to the laboratory for appropriate testing. Patient tolerated the procedure well. Thank you for this referral. Reading Location: [place] [address]
[2024-11-07 08:31] VITALS: BP 144/72; PULSE 90; RESP 18; O2SAT 95
[2024-11-07] MEDS: Lidocaine 2% (20 ml mdv) 20 ML Vial INFILT (08:41)
[2024-11-07 08:45] VITALS: BP 136/73; PULSE 87; RESP 18; O2SAT 96
[2024-11-07 08:50] VITALS: BP 121/57; PULSE 96; RESP 18; O2SAT 95
[2024-11-07 09:00] VITALS: BP 117/67; PULSE 83; RESP 18; O2SAT 95
[2024-11-07 09:06] VITALS: BP 114/63; PULSE 81; RESP 18; O2SAT 96
[2024-11-07 09:30] LABS: Cytology, Body Fluid / CSF SEE PATHOLOGY REPORT; Pathologist Comment/Body Fluid May follow
[2024-11-07 09:50] LABS: Body Fluid Polynuclear WBC # 5.063 10^3/uL; Body Fluid Total Cells Counted 7.044 10^3/ul; Red Cell Count/Body Fluid 0.004 10^6/ul; White Blood Count/Body Fluid 7.033 10^3/uL
[2024-11-07 09:57] LABS: Auto B Fluid Analyzer BKGD Ct COUNTS W/IN LIMITS (W/IN LIMITS)
[2024-11-07 09:58] LABS: Appearance/Body Fluid TURBID; Color/Body Fluid YELLOW; Source- Body Fluid THORACENTESIS
[2024-11-07 10:34] LABS: Lymphocytes 24 %; Monocytes 6 %
[2024-11-07 10:35] LABS: Body Fluid QC Type(s) BF1; Other Cell Type/BF 70 %
[2024-11-07 11:02] LABS: LDH,Body Fluid 512 Units/L (Not Establ.)
[2024-11-07 11:32] LABS: Glucose, Body Fluid 68 mg/dL (Not Establ.)
== END | disposition home or self-care (01) ==
PROVIDERS: PCP Internal Medicine; Referring Provider Internal Medicine Critical Care Medicine; Visit Provider Internal Medicine Critical Care Medicine
DX: J90 Pleural effusion, not elsewhere classified (principal)
CPT/HCPCS: 32555; 71046; 82945; 83615; 84157; 87070; 87075; 87205; 88108; 88305; 88313; 89050

== ENCOUNTER → 2024-11-16 | Outpatient (CLI) | payer MEDICARE, SELFPAY ==
--- NOTE | 2024-11-16 | FLU_PTH ---
PATIENT: BRIGETTE RUSSELL LOC: U#:[id number] AGE/SX: 79/M ROOM: RE11/16/[address]: Dr. Alejandro Pritchard DO : 1945 BED: DIS: 11/16/2024 SPEC #: [id number] RECD: 11/16/24 14:20 STATUS: SANDRA REQ #: [id number] DAVINA: 11/16/24 00:[address]: Alejandro Pritchard DEPT: CYTOLOGY RECD BY: Dameon Cox ENTERED: 11/17/24 09:29 SP TYPE: Fluid OTHR DR: Dr. Cheryl Morgan MD Tissues: A - THORACIC FLUID Procedures: Immunohistochemical Stains Special Stain Group II Surgery Specimen Level IV Cytospin Fluid IHC Stain ADDITIONAL HEADER OPERATION: Right pleural effusion PRE-OP DIAGNOSIS: Pleural effusion TISSUE SUBMITTED: A- Thoracentesis fluid for cytology DIAGNOSIS CYTOLOGY A. Right pleural effusion, thoracentesis (cytospin, cellblock): * Atypical cells present, favor reactive mesothelial cells. * Acute inflammation with eosinophilia. * E-cadherin is negative. * Calretinin highlights mesothelial cells. CYTOLOGY STUDY Slides are reviewed. All matched controls reacted appropriately. These tests were developed and their performance characteristics determined by [facility]. They may not have been cleared or approved by the U.S. Food and Drug Administration. The FDA has determined that such clearance or approval is not necessary.? The above immunohistochemical/dualISH?markers are reviewed by the Pathologist. CYTOLOGY GROSS A. Received is 80 ml of yellow-cloudy fluid labeled with the patient's name and and designated per the requisition as Thoracentesis fluid. Submitted for cytology and cell block preparation. Mr 11/17/2024 CPT: [id number]
[2024-11-16 13:50] VITALS: BP 138/79; PULSE 96; RESP 18; TEMP 36.5; O2SAT 97
[2024-11-16] MEDS: Lidocaine 2% (20 ml mdv) 20 ML Vial INFILT (14:00)
[2024-11-16 14:02] VITALS: BP 131/75; PULSE 90; RESP 18; O2SAT 97
[2024-11-16 14:10] VITALS: BP 93/54; PULSE 102; RESP 18; O2SAT 97
[2024-11-16 14:13] VITALS: BP 131/76; PULSE 96; RESP 16; O2SAT 94
[2024-11-16 14:15] VITALS: BP 128/70; PULSE 97; RESP 18; O2SAT 97
--- NOTE | 2024-11-16 14:15 | PCM.OPRPT ---
Problems Associated Problem List Diagnoses (1) Bilateral pleural effusion: (2) Pleural effusion, right: Multi Select Codes Radiology Radiology US Procedures: 32220 Thoracentesis Operative Report (Standard) Operative Information Date of Procedure: 11/16/24 Pre-Operative Diagnosis: Bilateral pleural effusion Post-Operative Diagnosis: Bilateral pleural effusion Surgery/Procedure Performed: Ultrasound-guided thoracentesis, right php mysql developer: No Type of Anesthesia: Local Procedure Start Time: 13:57 Procedure Stop Time: 14:10 Select all DRAINS/GRAFTS/IMPLANTS that apply: None Estimated Blood Loss: 0 Specimen collected: Yes Description of specimen(s) removed: 100 mL of cloudy, dark yellow fluid Description of surgery: PROCEDURE: Ultrasound Guided Thoracentesis- Right ORDERING PROVIDER: Dr. Alejandro Pritchard INDICATION: Male, 79 years old. Bilateral pleural effusions. PROVIDER: TOM Guido PROCEDURE: The risks, benefits, and alternatives to the procedure were explained to the patient. The specific risks of bleeding, infection, and pneumothorax requiring chest tube insertion were discussed and accepted. Written informed consent was obtained. The patient was placed in the sitting, upright position. Ultrasonographic evaluation of the bilateral lower pleural spaces was carried out. An adequate pocket was identified in the right lower pleural space. The overlying skin was prepped with chlorhexidine and draped in sterile fashion. 2 % lidocaine was administered subcutaneously for local anesthesia. Under ultrasound guidance, a 5-Wallisian thoracentesis needle/catheter system was advanced into the right posterior lower pleural fluid collection. 1870 ml of cloudy, dark yellow colored fluid was drained. A sample was sent to the lab for diagnostic purposes. The catheter was removed, and a sterile dressing was applied. The patient tolerated the procedure well. There were no immediate complications. A chest x-ray was ordered. There was no evidence of pneumothorax. The procedure was proctored by interventional radiologist Dr. Weems. IMPRESSION: Successful ultrasound guided thoracentesis of right pleural effusion. Surgical Findings: None Complications Complications: No
--- NOTE | 2024-11-16 14:18 | RAD_ITS ---
EXAM: Inspiration expiration views following a right thoracentesis. CLINICAL HISTORY: Right pleural effusion. COMPARISON: Prior study dated November 07, 2024 TECHNIQUE: Inspiration expiration views were obtained. FINDINGS: Small bilateral pleural-parenchymal changes. No evidence of pneumothorax following the right thoracentesis. RAD/Chest Insp/Exp 2 View IMPRESSION: No evidence of pneumothorax following the right thoracentesis. Reading Location: [facility]
== END | disposition home or self-care (01) ==
LOC: US 13:17
PROVIDERS: PCP Internal Medicine; Referring Provider Internal Medicine Critical Care Medicine; Visit Provider Internal Medicine Critical Care Medicine
DX: J90 Pleural effusion, not elsewhere classified (principal)
CPT/HCPCS: 32555; 71046; 88108; 88305; 88313

== ENCOUNTER → 2024-11-24 | Outpatient (CLI) | payer MEDICARE, SELFPAY ==
[2024-11-24 13:37] VITALS: BP 131/70; PULSE 93; RESP 18; O2SAT 98
[2024-11-24] MEDS: Lidocaine 2% (20 ml mdv) 20 ML Vial INFILT (13:42)
[2024-11-24 13:45] VITALS: BP 130/76; PULSE 92; RESP 18; O2SAT 98
--- NOTE | 2024-11-24 13:45 | FLU_PTH ---
PATIENT: BRIGETTE RUSSELL LOC: [facility] U#:[id number] AGE/SX: 79/M ROOM: RE11/24/[address]: Dr. Alejandro Pritchard DO : 1945 BED: DIS: 11/24/2024 SPEC #: [id number] RECD: 11/24/24 14:12 STATUS: SANDRA REQ #: [id number] DAVINA: 11/24/24 13:[address]: Alejandro Pritchard DEPT: CYTOLOGY RECD BY: Dameon Cox ENTERED: 11/27/24 09:39 SP TYPE: Fluid OTHR DR: Dr. Cheryl Morgan MD Tissues: A - THORACIC FLUID Procedures: Special Stain Group II Surgery Specimen Level IV Cytospin Fluid HEADER OPERATION: Ultrasound guided thoracentesis PRE-OP DIAGNOSIS: Pleural effusion TISSUE SUBMITTED: A- Thoracentesis fluid for cytology DIAGNOSIS CYTOLOGY A. Pleural fluid, thoracentesis (cytospin, cellblock): * Lymphocytosis. * No malignant epithelial cells identified. CYTOLOGY STUDY Slides are reviewed. CYTOLOGY GROSS A. Received is 90 ml of yellow-cloudy fluid labeled with the patient's name and and designated per the requisition as Thoracentesis fluid. Submitted for cytology and cell block preparation. 11/27/2024 CPT: [id number]
[2024-11-24 13:57] VITALS: BP 113/64; PULSE 95; RESP 18; O2SAT 99
--- NOTE | 2024-11-24 14:00 | RAD_ITS ---
PROCEDURE: CHEST INSP/EXP 2 VIEW 11/24/2024 REASON FOR EXAM: POST THORACENTESIS TECHNIQUE: CHEST INSP/EXP 2 VIEW COMPARISON: Prior study dated November 16, 2024. FINDINGS: The patient is status post left thoracentesis. No evidence of pneumothorax. Mild residual bilateral pleural-parenchymal changes. RAD/Chest Insp/Exp 2 View IMPRESSION: Status post left thoracentesis. No evidence of pneumothorax. Reading Location: [place] [address]
[2024-11-24 14:03] VITALS: PULSE 91; RESP 18; O2SAT 98
--- NOTE | 2024-11-24 14:03 | OP.PCM_ITS ---
Problems Associated Problem List Diagnoses (1) Bilateral pleural effusion: Multi Select Codes Radiology Radiology US Procedures: 61864 Thoracentesis Operative Report (Standard) Operative Information Date of Procedure: 11/24/24 Pre-Operative Diagnosis: Bilateral pleural effusion Post-Operative Diagnosis: Bilateral pleural effusion Surgery/Procedure Performed: Ultrasound-guided thoracentesis, left billing services manager: No Type of Anesthesia: Local Procedure Start Time: 13:39 Procedure Stop Time: 13:59 Select all DRAINS/GRAFTS/IMPLANTS that apply: None Estimated Blood Loss: 0 Specimen collected: Yes Description of specimen(s) removed: 100 mL of clear dark yellow fluid Description of surgery: PROCEDURE: Ultrasound Guided Thoracentesis, left ORDERING PROVIDER: Dr. Pritchard INDICATION: Male, 79 years old. Bilateral pleural effusion. PROVIDER: TOM Guido PROCEDURE: The risks, benefits, and alternatives to the procedure were explained to the patient. The specific risks of bleeding, infection, and pneumothorax requiring chest tube insertion were discussed and accepted. Written informed consent was obtained. The patient was placed in the sitting, upright position. Ultrasonographic evaluation of the bilateral lower pleural spaces was carried out. Effusions were present on both the left and the right. An adequate pocket was identified in the left lower pleural space. The overlying skin was prepped with chlorhexidine and draped in sterile fashion. 2 % lidocaine was administered subcutaneously for local anesthesia. Under ultrasound guidance, a 5-Pashto thoracentesis needle/catheter system was advanced into the left posterior lower pleural fluid collection. 710 ml of clear dark yellow colored fluid was drained. A sample was sent to the lab for diagnostic purposes. The catheter was removed, and a sterile dressing was applied. The patient tolerated the procedure well without any immediate complications. A chest x-ray was ordered. There was no evidence of pneumothorax. The procedure was proctored by interventional radiologist Dr. Weems. IMPRESSION: Successful ultrasound guided thoracentesis of left pleural effusion. Surgical Findings: None Complications Complications: No
== END | disposition home or self-care (01) ==
PROVIDERS: PCP Internal Medicine; Referring Provider Internal Medicine Critical Care Medicine; Visit Provider Internal Medicine Critical Care Medicine
DX: J90 Pleural effusion, not elsewhere classified (principal)
CPT/HCPCS: 32555; 71046; 88108; 88305; 88313; 94060; 94726; 94729

== ENCOUNTER → 2024-11-27 | Outpatient (CLI) | payer MEDICARE, SELFPAY ==
--- NOTE | 2024-11-27 | FLU_PTH ---
PATIENT: BRIGETTE RUSSELL LOC: [facility]#:[id number] AGE/SX: 79/M ROOM: RE11/27/[address]: YASMIN Gee : 1945 BED: DIS: 11/27/2024 SPEC #: [id number] RECD: 11/27/24 12:59 STATUS: SANDRA REQue #: [id number] DAVINA: 11/27/24 00:[address]: Rhonda Taylor NP DEPT: CYTOLOGY RECD BY: Dameon Cox ENTERED: 11/27/24 14:10 SP TYPE: Fluid OTHR DR: Dr. Cheryl Morgan MD Tissues: A - THORACIC FLUID Procedures: Special Stain Group II Surgery Specimen Level IV Cytospin Fluid HEADER OPERATION: Ultrasound guided right thoracentesis PRE-OP DIAGNOSIS: Pleural effusion TISSUE SUBMITTED: A- Thoracentesis fluid for cytology DIAGNOSIS CYTOLOGY A. Right pleural effusion, thoracentesis (cytospin, cellblock): * No malignant cells identified. * Acute inflammation. CYTOLOGY STUDY Slides are reviewed. CYTOLOGY GROSS A. Received is 108 ml of yellow-cloudy fluid labeled with the patient's name and and designated per the requisition as Thoracentesis fluid. Submitted for cytology and cell block preparation. Mr 11/27/2024 CPT: [id number]
--- NOTE | 2024-11-27 11:48 | US_ITS ---
PROCEDURE: THORACENTESIS W US 11/27/2024 REASON FOR EXAM: PLEURAL EFFUSION RETURN TECHNIQUE: THORACENTESIS W US COMPARISON: None FINDINGS: Following informed consent, and using standard sterile technique, an ultrasound- guided right thoracentesis was performed 2% lidocaine local anesthesia was followed by placement of a 5 [place] catheter into the right pleural fluid collection. 895 mL of sandy colored fluid was successfully removed. A portion of this was sent to the laboratory for evaluation. No complication was encountered combined the patient left the department in good condition, without significant complaint. US/Thoracentesis W US IMPRESSION: Successful right ultrasound-guided thoracentesis. Laboratory results pending. Reading Location: [place] [address]
[2024-11-27 12:09] VITALS: BP 129/69; PULSE 91; RESP 18; TEMP 36.4; O2SAT 97
[2024-11-27] MEDS: Lidocaine 2% (20 ml mdv) 20 ML Vial INFILT (12:20)
[2024-11-27 12:24] VITALS: BP 126/64; PULSE 92; RESP 18; O2SAT 98
[2024-11-27 12:30] VITALS: BP 128/55; PULSE 77; RESP 18; O2SAT 98
[2024-11-27 12:50] VITALS: BP 121/62; PULSE 98; RESP 18; O2SAT 98
[2024-11-27 13:03] LABS: Cytology, Body Fluid / CSF SEE PATHOLOGY REPORT
[2024-11-27 13:11] LABS: Body Fluid Mononuclear WBC # 0.596 10^3/uL; Body Fluid Mononuclear WBC % 34.3 %; Body Fluid Polynuclear WBC # 1.144 10^3/uL; Body Fluid Polynuclear WBC % 65.7 %; Body Fluid Total Cells Counted 1.746 10^3/ul; Red Cell Count/Body Fluid 0.005 10^6/ul
[2024-11-27 13:16] LABS: Auto B Fluid Analyzer BKGD Ct COUNTS W/IN LIMITS (W/IN LIMITS)
[2024-11-27 13:17] LABS: Appearance/Body Fluid CLOUDY; Color/Body Fluid YELLOW; Source- Body Fluid THORACENTESIS
[2024-11-27 13:50] LABS: Lymphocytes 18 %; Monocytes 12 %; Neutrophil (Segs) 2 %
[2024-11-27 13:51] LABS: Body Fluid QC Type(s) BF1Q; Other Cell Type/BF 68 %
[2024-11-27 14:26] LABS: LDH,Body Fluid 512 Units/L (Not Establ.); Protein, Body Fluid 4.4 g/dL (Not Establ.)
[2024-11-30 11:12] LABS: Pathologist Comment/Body Fluid Reviewed
== END | disposition home or self-care (01) ==
LOC: US 11:47
PROVIDERS: PCP Internal Medicine; Referring Provider Nurse Practitioner Acute Care; Visit Provider Nurse Practitioner Acute Care
DX: J90 Pleural effusion, not elsewhere classified (principal)
CPT/HCPCS: 32555; 83615; 84157; 87070; 87075; 87205; 88108; 88305; 88313; 89050

== ENCOUNTER → 2024-11-28 | Outpatient (CLI) | payer MEDICARE, SELFPAY ==
[2024-11-28 11:15] VITALS: PULSE 108; PULSE 112; PULSE 113; PULSE 114; PULSE 127; PULSE 130; PULSE 94; PULSE 98; O2SAT 84; O2SAT 88; O2SAT 89; O2SAT 91; O2SAT 93; O2SAT 94
--- NOTE | 2024-11-28 11:45 | CPS ---
Patient arrived on 2L pulse dose O2. Patient taken off and waited 10 minutes before starting test. Patient maintained SpO2 greater than 90% before test. At the 2 min kole the patient's SpO2 dropped below 88% and 2L pulse dose was added. Patient rested at that time. At the 4 min kole the patient's SpO2 dropped to 88% and O2 was increased to 3L pulse dose. At the 6 min kole the patient's SpO2 dropped to 88% and O2 was increased to 4L pulse dose, patient was okay to walk additional minutes to make sure he maintained SpO2 on 4L pulse dose. Patient's SpO2 hung around 90% on 4L pulse dose during additional 2 min of testing. 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
--- NOTE | 2024-11-30 10:10 | PCM.PSN.6M ---
PSN 6 Minute Walk Test 6 Minute Walk Test 6 Minute Walk Test: 6 Minute Walk Test PSN:6-Minute Walk Test Start: 11/28/24 11:42 Freq: Status: Active Protocol: [id number] Document 11/28/24 11:15 JR (Rec: 11/28/24 11:50 JR [id number]) 6 Minute Walk Test Date Performed 11/28/24 Time Performed 11:15 Height 6 ft 1 in Weight: 215 lb Weight in Pounds [address]: ashleigh Assistive device None used: Pre-test Oxygen Delivery Room Air Method Pulse Ox (%) 93 Pulse Rate (60-100 94 beats/min) Dyspnea Nimisha Scale ( 0 0-10) Exertion Nimisha Scale 6 (6-20) 1st minute Oxygen Delivery Room Air Method Pulse Ox (%) 91 Pulse Rate (60-100 114 H beats/min) 2nd minute Oxygen Delivery Room Air Method Pulse Ox (%) 84 Pulse Rate (60-100 113 H beats/min) 3rd minute Oxygen Flow Rate (L/ 2 min) (L/min) Oxygen Delivery Nasal Cannula Method Pulse Ox (%) 93 Pulse Rate (60-100 127 H beats/min) 4th minute Oxygen Flow Rate (L/ 2 min) (L/min) Oxygen Delivery Nasal Cannula Method Pulse Ox (%) 88 Pulse Rate (60-100 130 H beats/min) 5th minute Oxygen Flow Rate (L/ 3 min) (L/min) Oxygen Delivery Nasal Cannula Method Pulse Ox (%) 89 Pulse Rate (60-100 108 H beats/min) 6th minute Oxygen Flow Rate (L/ 4 min) (L/min) Oxygen Delivery Nasal Cannula Method Pulse Ox (%) 88 Pulse Rate (60-100 112 H beats/min) Dyspnea Nimisha Scale ( 2 0-10) Exertion Nimisha Scale 11 (6-20) Post-test Oxygen Flow Rate (L/ 4 min) (L/min) Oxygen Delivery Nasal Cannula Method Pulse Ox (%) 94 Pulse Rate (60-100 98 beats/min) Full Laps Walked 17 Partial Lap, Number 0 of Tiles Walked Total Distance 1003 Walked (ft) 11/28/24 11:45 Cardiopulmonary Services by Marisel Rawls Patient arrived on 2L pulse dose O2. Patient taken off and waited 10 minutes before starting test. Patient maintained SpO2 greater than 90% before test. At the 2 min kole the patient's SpO2 dropped below 88% and 2L pulse dose was added. Patient rested at that time. At the 4 min kole the patient's SpO2 dropped to 88% and O2 was increased to 3L pulse dose. At the 6 min kole the patient's SpO2 dropped to 88% and O2 was increased to 4L pulse dose, patient was okay to walk additional minutes to make sure he maintained SpO2 on 4L pulse dose. Patient's SpO2 hung around 90% on 4L pulse dose during additional 2 min of testing. Marisel Rawls EDUCATION DEPARTMENT REGISTRAR Initialized on 11/28/24 11:45 - END OF NOTE Interpretation Interpretation: The patient ambulated 1003 feet over the course of 6 minutes beginning on room air without assistive devices. Pretesting oxygen saturation was noted to be 93% on room air. With ambulation, the patient desaturated on several occasions requiring the initiation and subsequent escalation of supplemental oxygen to 4 L/min to maintain appropriate saturations. Recommendations Recommendations: 4 L/min of supplemental oxygen is required with exertion.
== END | disposition home or self-care (01) ==
LOC: PSN 11:08
PROVIDERS: PCP Internal Medicine; Referring Provider Internal Medicine Critical Care Medicine; Visit Provider Internal Medicine Critical Care Medicine
DX: J44.9 Chronic obstructive pulmonary disease, unspecified (principal); J90 Pleural effusion, not elsewhere classified
CPT/HCPCS: 94618

== ENCOUNTER → 2024-12-07 | Outpatient (CLI) | payer MEDICARE, SELFPAY ==
[2024-12-07 12:21] VITALS: BP 128/79; PULSE 90; RESP 16; TEMP 36.6; O2SAT 97
[2024-12-07 12:30] VITALS: BP 136/72; PULSE 87; RESP 18; O2SAT 97
[2024-12-07] MEDS: Lidocaine 2% (20 ml mdv) 20 ML Vial INFILT (12:35)
[2024-12-07 12:41] VITALS: BP 134/77; PULSE 92; RESP 18; O2SAT 97
[2024-12-07 12:45] VITALS: BP 130/69; PULSE 87; RESP 20; O2SAT 97
[2024-12-07 13:05] LABS: Cytology, Body Fluid / CSF SEE PATHOLOGY REPORT
[2024-12-07 13:23] LABS: Body Fluid Mononuclear WBC # 0.598 10^3/uL; Body Fluid Mononuclear WBC % 44.9 %; Body Fluid Polynuclear WBC # 0.735 10^3/uL; Body Fluid Polynuclear WBC % 55.1 %; White Blood Count/Body Fluid 1.333 10^3/uL
[2024-12-07 13:47] LABS: Appearance/Body Fluid SL CLDY; Auto B Fluid Analyzer BKGD Ct COUNTS W/IN LIMITS (W/IN LIMITS); Body Fluid QC Type(s) BF1Q; Color/Body Fluid LT YEL; Red Cell Count/Body Fluid 1105 /mm3; Source- Body Fluid THORACENTESIS
[2024-12-07 13:54] LABS: Neutrophil (Segs) 2 %
[2024-12-07 13:55] LABS: Other Cell Type/BF 65 %
[2024-12-14 09:05] LABS: Pathologist Comment/Body Fluid Reviewed
== END | disposition home or self-care (01) ==
LOC: US 11:50
PROVIDERS: PCP Internal Medicine; Referring Provider Nurse Practitioner Acute Care; Visit Provider Nurse Practitioner Acute Care
DX: J90 Pleural effusion, not elsewhere classified (principal)
CPT/HCPCS: 32555; 83615; 84157; 87070; 87075; 87205; 87206; 88108; 88305; 88313; 89050

== ENCOUNTER → 2024-12-20 | Outpatient (CLI) | payer MEDICARE, SELFPAY ==
--- NOTE | 2024-12-20 08:23 | US_ITS ---
PROCEDURE: Ultrasound of the right pleural cavity. 12/20/2024 REASON FOR EXAM: LEFT PLEURAL EFFUSION TECHNIQUE: Targeted ultrasound of the right pleural cavity for assessment of pleural effusion and possible thoracentesis. COMPARISON: Prior study dated November 16, 2024. US/Chest IMPRESSION: Not enough fluid for safe thoracentesis. Reading Location: [place] [id number]
[2024-12-20 08:53] VITALS: BP 162/72; PULSE 86; RESP 18; O2SAT 97
[2024-12-20 14:53] LABS: CRP 51.30 mg/L (0.0-3.0)
[2024-12-22 11:08] LABS: ANTINUCLEAR ANTIBODIES DIRECT Negative (Negative); Anti-dsDNA Ab 1 IU/mL (0-9)
[2024-12-25 12:08] LABS: Cytoplasmic Ab (C-ANCA) <1:20 titer (Neg:<1:20); Perinuclear Ab (P-ANCA) <1:20 titer (Neg:<1:20); QNTFERON TB Mitogen Value > 10.00 IU/mL (.); QNTFERON TB Nil Value 0.02 IU/mL (.); QNTFERON TB1+ Ag Value 0.03 IU/mL (.); QNTFERON TB2+ Ag Value 0.04 IU/mL (.); QNTIFERON TB Positive Criteria Negative (Negative)
== END | disposition home or self-care (01) ==
PROVIDERS: PCP Internal Medicine; Referring Provider Nurse Practitioner Acute Care; Visit Provider Nurse Practitioner Acute Care
DX: J90 Pleural effusion, not elsewhere classified (principal); J44.9 Chronic obstructive pulmonary disease, unspecified
CPT/HCPCS: 36415; 76604; 85652; 86037; 86038; 86140; 86225; 86431; 86480

== ENCOUNTER → 2025-01-11 | Outpatient (CLI) | payer MEDICARE, SELFPAY ==
[2025-01-12 16:09] LABS: Angiotensin Convert Enzyme 21 U/L (14-82)
== END | disposition home or self-care (01) ==
LOC: LAB 12:21
PROVIDERS: PCP Internal Medicine; Referring Provider Internal Medicine Pulmonary Disease; Visit Provider Internal Medicine Pulmonary Disease
DX: J44.9 Chronic obstructive pulmonary disease, unspecified (principal)
CPT/HCPCS: 36415; 82164

== ENCOUNTER → 2025-01-19 | Outpatient (CLI) | payer MEDICARE, SELFPAY ==
--- NOTE | 2025-01-19 11:49 | US_ITS ---
PROCEDURE: CHEST 01/19/2025 REASON FOR EXAM: PE Assessment for possible thoracentesis. TECHNIQUE: CHEST Imaging of the right and left pleural spaces performed. COMPARISON: None US/Chest IMPRESSION: Not enough fluid for safe paracentesis. Reading Location: [id number]
--- NOTE | 2025-01-19 12:17 | NURSING ---
pt aware not enough fluid to drain. denies sob. vss. 144/80, 94, 18, 98% 3L
== END | disposition home or self-care (01) ==
LOC: US 11:49
PROVIDERS: PCP Internal Medicine; Referring Provider Internal Medicine Pulmonary Disease; Visit Provider Internal Medicine Pulmonary Disease
DX: J90 Pleural effusion, not elsewhere classified (principal); J44.9 Chronic obstructive pulmonary disease, unspecified; I26.99 Other pulmonary embolism without acute cor pulmonale; Z53.9 Procedure and treatment not carried out, unspecified reason
CPT/HCPCS: 76604

== ENCOUNTER → 2025-03-02 | Outpatient (CLI) | payer MEDICARE, SELFPAY ==
[2025-03-02 13:08] LABS: CRP 36.50 mg/L (0.0-3.0)
== END | disposition home or self-care (01) ==
LOC: LAB 11:31
PROVIDERS: PCP Internal Medicine; Referring Provider Internal Medicine Pulmonary Disease; Visit Provider Internal Medicine Pulmonary Disease
DX: J90 Pleural effusion, not elsewhere classified (principal)
CPT/HCPCS: 36415; 85652; 86140

== ENCOUNTER → 2025-03-26 | Outpatient (CLI) | payer MEDICARE, SELFPAY ==
--- NOTE | 2025-03-26 08:01 | PCM.PR.HP ---
History of Present Illness General Arrival date:: 03/26/25 Arrival time:: 08:01 Date of Referral:: 03/02/25 Date of Evaluation: 03/26/25 Referring Physician: Dr. Dexter Primary Diagnosis: Moderate persistent asthma History of Present Pulmonary Event [facility] Breathless Scale: When is the patient short of breath? Y/N Grade: Description of Breathlessness: y 0 I only get breathless with strenuous exercise. y 1 I get short of breath when hurrying on level ground or walking up a slight hill. n 2 On level ground, I walk slower than people of the same age because of breathless, or have to stop for breath when walking at my own pace. y 3 I stop for breath after walking 100 yards or after a few minutes on level ground. n 4 I am too breathless to leave the house or I am breathless when dressing. Respiratory Problems: Yes Retain Secretions, Wheezing, Able to Speak in Full Sentences, Ankle Swelling, Dyspnea at Rest, Dyspnea with Activity, Dyspnea Lying Down Flat and Cough with Secretions; No Limited Range of Motion, Chest Pain, Fatigue, Dizziness, Hoarseness, Anxiety or Panic Medications Home Medications albuterol sulfate 90 mcg/actuation breath activated powder inhaler 2 inh inhalation Q4H PRN shortness of breath 10/23/24 cyanocobalamin (vitamin B-12) 50 mcg lozenges (Vitamin B-12) 50 mcg PO DAILY 10/23/24 ferrous sulfate 325 mg (65 mg iron) tablet (Iron (ferrous sulfate)) 325 mg PO DAILY 10/23/24 guaifenesin 600 mg tablet, extended release 12 hr (Mucus Relief ER) 600 mg PO DAILY 11/02/24 methimazole 5 mg tablet 5 mg PO QDAY thyroid #90 tabs 11/07/24 fluticasone furoate 100 mcg-vilanterol 25 mcg/dose inhalation powder (Breo Ellipta) 1 inh inhalation DAILY #60 ea 12/21/24 Allergies Allergies shellfish derived Adverse Reaction (Mild, Verified 12/21/24 10:35) Nausea/Vom/Diarrhea Secretions Normal Color:: green/yellow Thick:: Yes Amount/Day:: 1 TSP Cough:: Yes AM: Yes Sleep Disorder Evaluation Hx of Sleep Apnea: No Do you snore loudly (louder than talking or can be heard through closed doors)?: No Do you often feel tired/ fatigued/ sleepy during daytime?: No Has anyone observed you stop breathing during sleep?: No History of Hypertension (for STOP score): No STOP Results: Negative Medical Utilization Medical Devices Do you use a peak flow meter at home?: No Do you use a spacer device with your inhalers?: No Medical Utilization Number of hospital visits in the last year?: 2 Number of emergency room visits in the last year?: 1 Do you see your physician on a regular schedule?: Yes How often?: every month Advanced Directives Advanced Directives Do you have a Healthcare Power of Renewals Manager?: Yes Living Will: Yes Advance Directives Information Provided: Yes Advance Directives on File: Yes Past Medical History Covid-19 Screening Physicial Symptoms Other Clinical Concerns Exposure Risk Pertinent Comorbidities 65 years or older:: Yes Has a chronic lung disease or moderate to severe asthma:: Yes Medical History Medical History Hypoxia Essential tremor Cataract COPD (chronic obstructive pulmonary disease) Thyroid disease Asthma Surgical History Surgical History H/O cataract extraction H/O shoulder surgery H/O sinus surgery Significant Family History Family History Mother Colon cancer Sister Colon cancer Social History Smoking History Smoking Status: Former smoker Years Smokin (stoppen in august of 2024) Packs Smoked per Day: 1.5 Hx Tobacco Use: Yes Alcohol Use Alcohol Usage: No Substance Abuse Hx Substance Use: No Occupation Occupation (List type of work in comments):: Retired Functioning ADL/IADL Current Ability Current Ability: Independent: Self-Care (e.g.,grooming, dressing, & bathing), Independent: Ambulation, Independent: Transfer and Independent: Household tasks (e.g., light meal prep, laundry, shopping) Pt Functioning Prior to Problem Prior Functioning: Self-Care (e.g.,grooming, dressing, & bathing): Independent, Ambulation: Independent, Transfer: Independent and Household tasks (e.g., light meal prep, laundry, shopping): Independent Social Environment Status Marital Status: Current Living Arrangements Living Environment:: Spouse Children How many children do you have?: 2 Do any of your children live nearby?: Yes Safety Do you feel safe in your surroundings?: Yes Assistance Do you need any assistance at home?: no Review of Systems Review of Systems Review of Systems Respiratory: Reports Cough, SOB at Rest, SOB upon Exertion, Sputum production, Wheezing, Appetite, Normal and Sleep, Normal; Denies Hemoptysis, Pleuritic Pain, Dizziness/Lightheadedness, Fatigue, PVD or Sexual changes Pain Is Patient Pain Free?: Yes Risk Factor Assessment Chief Complaint Chief Complaint: Moderate persistent asthma Vital Signs Pulse Rate: 81 Pulse Ox: 97 Blood Pressure: 144/70 Obesity Height: 6 ft 1 in Weight:: 214 lb 8 oz Weight in Pounds: 214.5 lbs Body Mass Index (BMI): 28.3 Nutritional Referral for Obesity: No Physical Activity Physical Inactivity: Recreational activity (walking dog) Risk Stratification Risk Guidelines: Moderate Risk: Risk Factor for Smoking, Risk Factor for Dyslipidemia, Risk Factor for Diabetes, Risk Factor for Obesity, Risk Factor for Hypertension, Risk Factor for Sedentary Lifestyle and Risk Factor for Depression For Smoking Smoking Risk Guidelines For Dyslipidemia Dyslipidemia Risk Guidelines For Diabetes Mellitus Diabetes Risk Guidelines For Obesity/Overweight Obesity/Overweight Risk Guidelines For Hypertension Hypertension Risk Guidelines For Sedentary Lifestyle Sedentary Lifestyle Risk Guidelines For Depression Depression Risk Guidelines Motivation Motivation to Participate On a scale of 1 to 10, how prepared are you to commit to attending program?: 8 What do you see as barriers to successfully being able to complete the program?: nothing Are there issues you are dealing with that will interfere with completing the program?: no Do you have a spouse or signficant other, family or friends who will help support you to complete the program?: yes Diagnostic Data Review 6 Minute Walk Test 6 Minute Walk Test: 1003 ft walked. Pt needed 4L O2 with exercise. Pulmonary Function Test FEV1:: 47 FVC:: 62 FEV1/FVC%:: 76
--- OUTSIDE RECORDS SUMMARY | 2025-03-26 08:06 | XMS RPT_ITS | CCD ---
Author Organization [facility] Care Team Providers Care Manager Ems Name Role Phone William RODRIGUEZ, Maribell Lares Primary Care Provider William RODRIGUEZ, Maribell Lares Primary Care Provider Jluis Christopher Unavailable Maribell Spence MD Primary Care Provider Jluis Christopher MD Unavailable MARIBELL SPENCE Attending Unavailab argelia SPENCE, MARIBELL LARES Primary Care Unavailab MARIBELL Duggan Attending Unavailab argelia SPENCE, MARIBELL LARES Primary Care Unavailab MARIBELL Duggan Referring Unavailab argelia SPENCE, MARIBELL LARES Primary Care Unavailab Maribell Duggan MD Primary Care Provider Dr. Thiago Morgan MD Primary Care Provider [phone] Dr. Dano Shea DO Emergency Provider [phone] Vibha Matias MD Admit Provider Dr. Vibha Matias MD Attending Provider Dr. Vibha Matias MD Other Provider Dr. Ty Cunningham MD Attending Provider Unavaila Dr. Ankit Reardon MD Attending Provider [phone] Ty Cunningham MD Other Provider Unavailable Dr. Thiago Morgan MD Attending Provider Dr. Thiago Morgan MD Referring Provider Dr. Cristofer Miranda DO Emergency Provider [phone] Davis Dougherty DO Admit Provider Farhat BYNUM, Dr. Cannon Attending Provider Farhat BYNUM, Dr. Cannon Other Provider Macho BYNUM, Dr. Allen Attending Provider Macho BYNUM, Dr. Allen Referring Provider Claudia BOAT PULLER-C, Rhonda Attending Provider Claudia BOAT PULLER-C, Rhonda Referring Provider Macho BYNUM, Dr. Allen Other Provider Macho BYNUM, Dr. Allen Other Provider Levi CAMARGO-C, Ronel Attending Provider Cathy RODRIGUEZ, Dr. Luna Primary Care Provider Dr. Dano Shea DO Emergency Provider [phone] Florencio RODRIGUEZ, Dr. Dunne Admit Provider Florencio RODRIGUEZ, Dr. Dunne Other Provider Marisa RODRIGUEZ, Dr. Crawford Attending Provider Unavaila emma Bliss MD, Dr. Pham Attending Provider [phone] Marisa RODRIGUEZ, Dr. Crawford Other Provider Unavailable Cathy RODRIGUEZ, Dr. Luna Attending Provider Cathy RODRIGUEZ, Dr. Luna Referring Provider Ruth BYNUM, Dr. Cleveland Emergency Provider [phone] Farhat BYNUM, Dr. Cannon Admit Provider Farhat BYNUM, Dr. Cannon Attending Provider Farhat BYNUM, Dr. Cannon Other Provider Macho BYNUM, Dr. Allen Attending Provider Macho BYNUM, Dr. Allen Referring Provider [phone] Macho BYNUM, Dr. Allen Other Provider Levi BOAT PULLER-C, Ronel Attending Provider Claudia BOAT PULLER-C, Rhonda Attending Provider Claudia BOAT PULLER-C, Rhonda Referring Provider Cathy RODRIGUEZ, Dr. Luna Primary Care Provider Guerita RODRIGEUZ, Dr. Issac Cummings Attending Provider Guerita RODRIGUEZ, Dr. Issac Cummings Referring Provider Issac Koo Cathy RODRIGUEZ, Dr. Luna Primary Care Provider Cathy RODRIGUEZ, Dr. Luna Referring Provider Cathy RODRIGUEZ, Dr. Luna Attending Provider THIAGO MORGAN G Primary Care Unavailable NANCI, SUDISH Attending Unavailable SIBILIA, ISSAC Referring Unavailable CATHY, THIAGO G Primary Care Unavailable NANCI, SUDISH Referring Unavailable Cathy RODRIGUEZ, Dr. Luna Primary Care Physician Dr. Alejandro Pritchard DO Attending Physician Dr. Alejandro Pritchard DO Referring Provider Dr. Alejandro Pritchard DO Nurse Practitioner Levi BOAT PULLER-CRonel Attending Physician Claudia BOAT PULLER-C, Rhonda Attending Physician Cathy RODRIGUEZ, Dr. Luna Referring Provider Dr. Thiago Morgan MD Attending Physician Guerita RODRIGUEZ, Dr. Issac Cummings Attending Physician Cathy, Thiago Primary Care Unavailable Sibilia, Issac V Attending Unavailable Sibilia, Issac V Referring Unavailable Phoenix, Thiago Primary Care Unavailable Sibilia Issac V Attending Unavailable Sibilia, Issac V Referring Unavailable Cathy, Thiago Primary Care Unavailable Sibilia, Issac V Referring Unavailable Sibilia, Issac V Attending Unavailable Cathy, Thiago Primary Care Unavailable Taylor BOAT PULLER, Rhonda Attending Unavailable Taylor BOAT PULLER, Rhonda Referring Unavailable Cathy, Thiago Primary Care Unavailable Taylor BOAT PULLER, Rhonda Referring Unavailable Taylor BOAT PULLER, Rhonda Attending Unavailable Cathy, Thiago Primary Care Unavailable Sibilia, Issac V Attending Unavailable Cathy, Thiago Primary Care Unavailable Taylor BOAT PULLER, Rhonda Referring Unavailable Taylor BOAT PULLER, Rhonda Attending Unavailable Cathy, Thiago Primary Care Unavailable Phoenix, Thiago Referring Unavailable Taylor BOAT PULLER, Rhonda Attending Unavailable Cathy, Thiago Primary Care Unavailable Brown, Alejandro Attending Unavailable Brown, Alejandro Referring Unavailable Cathy, Thiago Primary Care Unavailable Cathy, Thiago Attending Unavailable Cathy, Thiago Referring Unavailable Cathy, Thiago Primary Care Unavailable Sibilia, Issac V Referring Unavailable Sibilia, Issac V Attending Unavailable Cathy, Thiago Primary Care Unavailable Brown, Alejandro Referring Unavailable Brown, Alejandro Attending Unavailable Cathy, Thiago Primary Care Unavailable Phoenix, Thiago Attending Unavailable Phoenix, Thiago Referring Unavailable Phoenix, Thiago Primary Care Unavailable Phoenix, Thiago Attending Unavailable Phoenix, Thiago Referring Unavailable Cathy, Thiago Primary Care Unavailable Brown, Alejandro Attending Unavailable Brown, Alejandro Referring Unavailable Cathy, Thiago Primary Care Unavailable Brown, Alejandro Attending Unavailable Brown, Alejandro Referring Unavailable Cathy, Thiago Primary Care Unavailable Taylor BOAT PULLER, Rhonda Referring Unavailable Taylor BOAT PULLER, Rhonda Attending Unavailable Phoenix, Thiago Primary Care Unavailable SydniekyDavis Consulting Unavailable Sydnieky, Davis Admitting Unavailable Tershayrnky, Davis Attending Unavailable Phoenix, Thiago Attending Unavailable Cathy, Thiago Primary Care Unavailable Cathy, Thiago Referring Unavailable Cathy, Thiago Primary Care Unavailable Phoenix, Thiago Referring Unavailable Brown, Alejandro Attending Unavailable Cathy, Thiago Primary Care Unavailable Phoenix, Thiago Attending Unavailable Maribell Spence Referring Unavailable Phoenix, Thiago Primary Care Unavailable Tersharynky, Davis Admitting Unavailable ChristinaeletskyDavis Attending Unavailable Phoenix, Thiago Primary Care Unavailable Vibha Matias Consulting Unavailable Ty Cunningham Attending Unavailable Vibha Matias Admitting Unavailable Cathy, Thiago Primary Care Unavailable Brown, Alejandro Referring Unavailable Brown, Alejandro Attending Unavailable Phoenix, Thiago Primary Care Unavailable Ankit Bliss Attending Unavailable Cathy, Thiago Primary Care Unavailable Cathy, Thiago Referring Unavailable Taylor BOAT PULLER, Rhonda Attending Unavailable Cathy, Thiago Primary Care Unavailable Macho, Alejandro Consulting Unavailable Alejandro Pritchard Attending Unavailable Brown, Alejandro Referring Unavailable Phoenix, Thiago Primary Care Unavailable Brown, Alejandro Consulting Unavailable Brown, Alejandro Referring Unavailable Ronel Sims Attending Unavailable Cathy, Thiago Primary Care Unavailable Macho, Alejandro Consulting Unavailable Ronel Sims Attending Unavailable Macho, Alejandro Referring Unavailable Vibha Matias Admitting Unavailable Phoenix, Thiago Primary Care Unavailable Ty Cunningham Attending Unavailable Vibha Matias Consulting Unavailable Ty Cunningham Consulting Unavailable Vibha Matias Attending Unavailable Allergies Allergy Classification Reported Allergen(s) Allergy Type Date of Onset Reaction(s) Facility (9 sources) Shellfish; Translations: [SHELLFISH] Food Allergy 2 Anaphylaxis [facility] (20 sources) Shellfish; Translations: [shellfish derived] Propensity to adverse reactions 5 Nausea/Vom/Diar [facility] Medications Current Medications Medication Drug Class(es) Dates Sig (Normalized) Sig (Original) 200 actuat albuterol 0.09 mg/actuat dry powder inhaler (20 sources) beta2-Adrenergic Agonist Start: 10-23-2024 Start: 10-23-2024 Start: 12-09-2018 End: 09-03-2024 Albuterol Sulfate 90 mcg/act uation HFA aerosol inhaler Discontinued INHALATION 9 0 December 09, 2018 12:00am September 03, 2024 3:27pm ferrous sulfate 325 mg oral tablet (14 sources) Start: 10-23-2024 take 1 tablet by tray once daily 12 hr guaiFENesin 600 mg ext ended release oral tablet (20 sources) Start: 10-23-2024 End: 11-02-2024 take 1 tablet by mouth once daily, then take 1 tablet by mouth every twelve hours Start: 10-23-2024 End: 11-02-2024 take 1 tablet by mouth twice daily, then take 1 tablet by mouth every twelve hours Guaifenesin (Mucus Relief Er) 600 mg tablet extended release 12hr Discontinued 600 mg PO TWICE A DAY October 23, 2024 12:00am November 02, 2024 10:31am Start: 09-06-2024 End: 09-18-2024 take 1 tablet by mouth twice daily, then take 1 tablet by mouth every twelve hours Guaifenesin (Mucinex) 600 mg Tablet Extended Release 12hr Discontinued 600 mg PO TWICE A DAY 20 10 0 September 06, 2024 12:00am September 18, 2024 1:29pm Start: 09-06-2024 End: 09-18-2024 sildenafil 50 mg oral tablet (10 sources) Phosphodiesterase 5 Inhibitor Start: 07-21-2021 take 1 tablet by mouth once daily as needed sildenafil (VIAGRA) 50 mg tablet Take 1 tablet by mouth once daily as needed. 07/21/2021 Active Comment on above: Take 1 tablet by tray once daily as needed. vitamin b12 0.05 mg oral lozenge (16 sources) Vitamin B12 Start: 10-23-2024 take 50 ug by mouth once daily (4 sources) Start: 10-23-2024 Start: 04-26-2024 End: 09-03-2024 Completed/Discontinued Medications Medication Drug Class(es) Dates Sig (Normalized) Sig (Original) amoxicillin 500 mg oral tablet (19 sources) Penicillin-class Antibacterial Start: 12-19-2023 End: 12-26-2023 take 1 tablet by mouth three times daily Amoxicillin 500 mg tablet Discontinued 500 mg PO THREE TIMES A DAY 21 7 0 December 19, 2023 12:00am December 25, 2023 12:00am December 26, 2023 12:06am azithromycin 250 mg oral tablet (20 sources) Macrolide Antimicrobial Start: 09-06-2024 End: 09-18-2024 take 2 tablets by mouth every twenty-four hours Azithromycin 250 mg Tablet Discontinued 500 mg PO EVERY 24 HOURS 10 5 0 September 06, 2024 12:00am September 18, 2024 1:29pm Start: 12-09-2018 End: 10-27-2023 take 2-5 tablets by mouth once daily Azithromycin 250 mg tablet Discontinued 0 PO .COMPLEX 6 0 December 09, 2018 12:00am October 27, 2023 10:05am take 500 mg today (day 1), then 250 mg for 4 days (days 2-5) PO Start: 12-09-2018 End: 10-27-2023 fluticasone / salmeterol (3 sources) Corticosteroid, beta2-Adrenergic Agonist Start: 01-19-2022 End: 01-19-2022 take 1 puff(s) by inhalation twice daily fluticasone-salmeterol (ADVAIR, WIXELA) 250-50 mcg/dose inhaler Inhale 1 Puff as instructed twice daily. 1 Each 01/19/2022 01/19/2022 Discontinued (Changing Therapy/Dosage Form) End: 01-19-2022 take 1 puff(s) by inhalation twice daily fluticasone-salmeterol (ADVAIR, WIXELA) 250-50 mcg/dose inhaler Inhale 1 Puff as instructed twice daily. 0 01/19/2022 Discontinued Comment on above: Inhale 1 Puff as ins tructed twice daily. Xrqktqtzffx-Wzeoqufua-Rigpco er (17 sources) Anticholinergic, Corticosteroid, beta2-Adrenergic Agonist Start: 09-12-2024 End: 10-23-2024 Start: 09-12-2024 End: 10-23-2024 Vtyqjiteqdr-Onnxkhmth-Vhewyl er (Trelegy Ellipta) 100-62.5-25 mcg blister with device Discontinued 1 NMA INHALATION Q24H 60 1 September 12, 2024 12:00am October 23, 2024 11:14am Start: 09-12-2024 End: 10-23-2024 Cjkxclxlcbf-Vsjamtchi-Potjvc er (Trelegy Ellipta) 100-62.5-25 mcg blister with device Discontinued 1 NMA INHALATION Q24H 60 September 12, 2024 12:00am October 23, 2024 11:14am Start: 09-12-2024 Fluticasone-Um eclidin-Vilanter (Trelegy Ellipta) 100-62.5-25 mcg blister with device Active 1 NMA INHALATION Q24H 60 September 12, 2024 12:00am 30 actuat fluticasone furoat e 0.1 mg/actuat / vilanterol 0.025 mg/actuat dry powder inhaler (20 sources) Corticosteroid, beta2-Adrenergic Agonist Start: 10-23-2024 End: 12-21-2024 Start: 09-03-2024 End: 09-12-2024 Start: 12-16-2023 End: 12-21-2024 Fluticasone Furoate-Vilanter ol (Breo Ellipta) 100-25 mcg/dose blister with device Discontinued 1 NMA INHALATION DAILY September 03, 2024 12:00am September 12, 2024 12:48pm breathing Start: 01-20-2023 End: 08-25-2023 take 1 dose by inhalation once daily BREO ELLIPTA 100-25 mcg/dose inhaler Inhale 1 Inhalation as instructed once daily. 3 Each 3 01/20/2023 08/25/2023 Discontinued Start: 12-22-2021 End: 01-20-2023 take 1 puff(s) by inhalation once daily BREO ELLIPTA 100-25 mcg/dose inhaler Inhale 100 Inhalation as instructed once daily. Inhale 1 puff once daily 1 Each 11 01/19/2022 01/20/2023 Discontinued Start: 12-09-2018 End: 04-26-2024 Fluticasone Furoate-Vilanter ol 100-25 mcg/dose blister with device Discontinued INHALATION 60 0 December 09, 2018 12:00am April 26, 2024 11:29am Comment on above: Inhale 100 Inhalatio n as instructed once daily. Inhale 1 puff once daily Inhale 1 Inhalation as instructed once daily. furosemide 40 mg oral tablet (20 sources) Loop Diuretic Start: 5 End: 5 take 1 tablet by mouth once daily Furosemide 40 mg tablet Discontinued 40 mg PO DAILY 30 30 0 October 17, 2024 8:39am October 24, 2024 11:02am levalbuterol 0.103 mg/ml inhalation solution (2 sources) beta2-Adrenergic Agonist Start: 2 End: 2 levalbuterol 0.31 mg/3 mL INHALATION nebulizer solution Use 1 Ampule via nebulizer every 4 hours as needed. 0 07/29/2011 01/19/2022 Discontinued (Changing Therapy/Dosage Form) Comment on above: Use 1 Ampule via neb ulizer every 4 hours as needed. methIMAzole 5 mg oral tablet (20 sources) Thyroid Hormone Synthesis Inhibitor Start: 3 End: 5 take 1 tablet by mouth once daily Methimazole 5 mg tablet Discontinued 5 mg PO daily 30 2 April 09, 2024 9:32pm April 26, 2024 12:20pm Start: 12-09-2018 End: 04-07-2024 take 5 mg by mouth once daily Methimazole 10 mg tablet Discontinued 5 mg PO daily 90 0 April 07, 2024 12:38pm April 07, 2024 12:40pm Start: 12-09-2018 End: 04-07-2024 Methimazole 10 mg tablet Discontinued PO 90 0 December 09, 2018 12:00am April 07, 2024 12:39pm Start: 12-09-2018 End: 04-07-2024 Start: 12-05-2011 End: 08-19-2022 take 1 tablet by mouth every other day methIMAzole (TAPAZOLE) 5 mg tablet Indications: Graves disease Take 1 tablet by mouth every other day. 45 tablet 3 01/19/2022 08/19/2022 Discontinued Comment on above: Take 1 tablet by tray th every other day. Take 1 tablet by tray th once daily. Take 5 mg by mouth o nce daily. methylPREDNISolone 4 mg oral tablet (19 sources) Corticosteroid Start: 2018 End: 2018 take 1 tablet by mouth once Methylprednisolone (Medrol (Balwinder)) 4 mg tablets,dose pack Discontinued 4 mg PO per package directions 21 5 0 December 09, 2018 12:00am December 13, 2018 12:00am December 16, 2018 12:08am Chronic obstructive pulmonary disease with (acute) exacerbation Start: 12-09-2018 End: 12-16-2018 nicotine 2 mg chewing gum (17 sources) Cholinergic Nicotinic Agonist Start: 09-18-2024 End: 10-23-2024 Nicotine (Polacrilex) 2 mg gum Discontinued 2 mg BUCCAL Q2H 100 0 September 18, 2024 12:00am October 23, 2024 11:14am predniSONE 20 mg oral tablet (18 sources) Start: 09-06-2024 End: 09-18-2024 take 1 tablet by mouth twice daily Prednisone 20 mg tablet Discontinued 20 mg PO TWICE A DAY 14 7 0 September 06, 2024 12:00am September 18, 2024 1:30pm varenicline 1 mg oral tablet (1 source) Partial Cholinergic Nicotinic Agonist Start: 04-26-2024 End: 09-03-2024 take 1 tablet by mouth once Varenicline Tartrate (Chantix Starting Month Box) 0.5 mg (11)- 1 mg (42) tablets,dose pack Discontinued 0 PO per package directions 53 April 26, 2024 1:00am September 03, 2024 3:27pm PO PER PKG DIR Varenicline Tartrate (Chantix Starting Month Box) 0.5 mg (11)- 1 mg (42) tablets,dose pack (16 sources) Start: 04-26-2024 End: 09-03-2024 take 1 tablet by mouth once Varenicline Tartrate (Chantix Starting Month Box) 0.5 mg (11)- 1 mg (42) tablets,dose pack Discontinued 0 PO per package directions 53 April 26, 2024 1:00am September 03, 2024 3:27pm PO PER PKG DIR Start: 04-26-2024 End: 09-03-2024 take 1 tablet by mouth once Varenicline Tartrate ([place] tix Starting Month Box) 0.5 mg (11)- 1 mg (42) tablets,dose pack Discontinued 0 PO per package directions April 26, 2024 1:00am September 03, 2024 3:27pm PO PER PKG DIR Problems Active Problems Problem Classification Problem Date Documented Da te Episodic/Chronic Acute bronchitis (19 sources) Acute bronchitis; Translations: [Acute bronchitis, unspecified] 10-26-2023 Episodic Chronic obstructive pulmonary disease and bronchiectasis (20 sources) Chronic obstructive lung disease; Translations: [Chronic obstructive pulmonary disease, unspecified] Onset: 07-29-2011 06-02-2021 Chronic Comment on above: FEV1 47% Disorders of teeth and jaw (19 sources) Toothache; Translations: [Other specified disorders of teeth and supporting structures] 12-19-2023 Episodic Immunizations and screening for infectious disease (5 sources) Immunization due; Translations: [Encounter for immunization] 12-21-2024 Episodic Malaise and fatigue (15 sources) Lack of energy; Translations: [Other fatigue] 09-18-2024 Episodic Other aftercare (15 sources) Post-discharge follow-up; Translations: [Encounter for follow-up examination after completed treatment for conditions other than malignant neoplasm] 09-18-2024 Episodic Other lower respiratory disease (20 sources) Dyspnea; Translations: [Shortness of breath] 10-27-2023 Episodic Other lower respiratory disease (20 sources) Hypoxia; Translations: [Hypoxemia] 09-03-2024 Episodic Other lower respiratory disease (1 source) Other disorders of lung; Translations: [Pulmonary insufficiency] Onset: 02-23-2025 Episodic Other nutritional; endocrine; and metabolic disorders (15 sources) Health-related behavior finding; Translations: [Other symptoms and signs concerning food and fluid intake] 09-18-2024 Episodic Pleurisy; pneumothorax; pulmonary collapse (20 sources) Bilateral pleural effusion; Translations: [Pleural effusion, not elsewhere classified] Onset: 02-23-2025 09-03-2024 Episodic Residual codes; unclassified (1 source) Tobacco user; Translations: [Tobacco use] 08-25-2023 Episodic Residual codes; unclassified (1 source) Tobacco use; Translations: [Tobacco abuse] Onset: 08-25-2023 Episodic Respiratory failure; insufficiency; arrest (adult) (5 sources) Chronic respiratory failure; Translations: [Chronic respiratory failure, unspecified whether with hypoxia or hypercapnia] 12-21-2024 Chronic Screening and history of mental health and substance abuse codes (5 sources) Encounter for screening for depression; Translations: [Stopped smoking] Onset: 02-24-2023 12-21-2024 Episodic Substance-related disorders (2 sources) Tobacco dependence syndrome; Translations: [Nicotine dependence, unspecified, uncomplicated] Onset: 02-24-2023 02-24-2023 Chronic Thyroid disorders (20 sources) Graves' disease; Translations: [Thyrotoxicosis with diffuse goiter without thyrotoxic crisis or storm] Onset: 04-09-2006 07-10-2011 Chronic Unclassified (12 sources) October at 1045 am, get to the office at 1030 am Unclassified (9 sources) J90 - Pleural effusion, not elsewhere classified Past or Other Problems Problem Classification Problem Date Documented Da te Episodic/Chronic Administrative/social admission (2 sources) Advance directive discussed with patient; Translations: [Other specified counseling] Onset: 02-24-2023 02-24-2023 Episodic Other lower respiratory disease (1 source) Shortness of breath; Translations: [Shortness of breath] Onset: 12-05-2024 Episodic Other lower respiratory disease (2 sources) Hypoxemia; Translations: [Hypoxemia] Onset: 09-12-2024 Episodic Other screening for suspected conditions (not mental disorders or infectious disease) (16 sources) Patient encounter status; Translations: [Encounter for screening for lipoid disorders] Onset: 02-24-2023 Episodic Respiratory failure; insufficiency; arrest (adult) (20 sources) Acute respiratory failure; Translations: [Acute respiratory failure with hypoxia] Onset: 09-18-2024 09-18-2024 Episodic Results Test Name Value Interpretation Reference Range Facility CRPon 03-02-2025 C-REACTIVE PROT 36.50 mg/L High 0.0-3.0 [facility] Comment on above: Performed By: #### L 101.9900, L501.6710 ####[facility] [id number] [place], [place], [address] Erythrocyte Sed Rateon 03-02 SED RATE 72 mm/hr High [address] Comment on above: Performed By: #### L 101.9900, L501.6710 ####[facility] [id number] [place], [place], [address] Erythrocyte sedimentation ra teOrdered By: Issac Dexter on 03-02-2025 ESR (Bld) [Velocity] 72 mm/h High [address] Serum or plasma C reactive p rotein measurement (mass/volume)Ordered By: Issac Dexter on 03-02-2025 CRP [Mass/Vol] 36.50 mg/L High 0.0-3.0 [facility] CNPNon 02-27-2025 SHANTHIN Telephone (SARIAH) ----- EDUARD RUSSELL ([id number]) 1945 M T Date Time Provider Department 02/27/25 TOVA ANNA During your visit today, we recorded the following information about you: Rosanna Hanna 02/27/2025 11:38 AM Signed Shima from Dr. Issac Dexter's office called to get patient's last visit notes from 02/23/2025. Dr. Anna's 02/23/2025 7 pages of Visit Notes were faxed on , 02/27/2025 at 11:07am and 11:10am. Issac Dexter MD ([facility]) [place] [address] Allergies As of Date: 02/27/2025 Noted Allergy Reaction SHELLFISH 07/10/2011 10 - Anaphylaxis Date Reviewed: 02/23/2025 Reviewed by: Leticia Horne MA - Fully Assessed Reason for Visit: 02/23/2025 Visit Notes Faxed [Other] Prescriptions as of 02/27/2025 - BREO ELLIPTA 100-25 mcg/dose inhaler Inhale 1 Inhalation as instructed once daily. - methIMAzole (TAPAZOLE) 5 mg tablet Take 1 tablet by mouth once daily. - sildenafil (VIAGRA) 50 mg tablet Take 1 tablet by mouth once daily as needed. Problem List As Of Date 02/27/2025 Noted Resolved Graves disease [E05.00] 04/09/2006 COPD (chronic obstructive pulmonary disease) (H*07/29/2011 Encounter Status:Closed by ROSANNA HANNA on 02/27/25 [facility] Roseann 02-23-2025 CNOV Office Visit (SARIAH ) ----- EDUARD RUSSELL ([id number]) 1945 M [facility] Date Time Provider Department 02/23/25 2:20 PM TOVA ANNA During your visit today, we recorded the following information about you: Temperature Pulse Blood pressure Weight 99.7 degrees 101/minute 135/72 98.2 kg Height 1.88 m Tova Anna MD, PhD 02/26/2025 7:55 AM Unsigned Heat Treating Operator [place] [id number] [place] [facility] OF THORACIC AND CARDIOVASCULAR SURGERY NAME: EDUARD RUSSELL CLINIC #: [id number] DATE: 02/23/2025 AGE: 79 PHYSICIAN: Tova Anna M.D., Ph.D. I had the sincere pleasure of seeing the patient and his family in our Thoracic Clinic today. 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 Medical history and review of systems have been studied. I have also independently reviewed images from a variety of different chest radiograms and chest CT scans. I have studied pulmonary function tests including spirometry, DLCO, and walk oximetry. I have assessed the patient with my care team here at [facility] as well. In brief, this very pleasant former heavy smoker with recent cessation has a long history of chronic obstructive lung disease. He has perhaps a 30-40 pack-year tobacco history. He also has a diagnosis of Graves disease. He was in his usual state of reasonable health until he developed respiratory illness in August. This led to a series of problems that manifest as recurrent pleural effusions, ultimately mandating multiple thoracentesis. He was having routine thoracentesis almost every other week until December where he had his last high-volume thoracentesis. An attempt in January was performed with essentially no retrieval of fluid and he has not had any additional interventions up until the present time. His CT scan did recently done demonstrates small loculated bilateral effusion with pleural signs suggestive of some element of lung entrapment. He is now oxygen dependent. He has restrictive lung disease with an FEV1 of 42% and a DLCO that is severely depressed. He desaturates now when he walks. He has no obvious masses on his most recent CT scan. IMPRESSION: Bilateral pleural effusions in the setting of some sort of inflammatory disease. The patient's sedimentation rate is elevated, though I am not sure what the consequence or sequela of that is in relation to what is going on in this thorax. I am comforted by finding that his effusions have largely self-limited at this point and I would be surprised if he is not fully pleurodesed say for the bases of his lungs. 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 However, there was not enough fluid or entrapment to suggest that a decortication would be of significant benefit, especially in a man who likely has significant underlying parenchymal issues. I will reach out to Dr. Dexter. Pulmonary rehab might be a very reasonable intervention at this point. If Dr. Dexter thinks that a pleural biopsy would be indicated, I would be happy to move down that avenue, though I do not think we will recruit enough lung to think that the patient would come off oxygen. I will nonetheless follow with a CT scan in 2 months to make sure that his pleural disease does not continue to evolve and perhaps gradually recedes. It was a pleasure seeing him today. Tova Anna M.D., Ph.D. SM:[id number] /[id number] Ciro Romero MD 02/23/2025 4:03 PM Signed [facility] THORACIC SURGERY OUTPATIENT CONSULT NOTE Eduard Russell [id number] Requesting Provider: Guerita Thoracic Physician: Tova Anna MD Chief Complaint: Recurrent pleural effusions Impression: 79 year old male with COPD, 40py smoking hx quit 08/2024 with recurrent pleural effusions and new oxygen requirement Plan: -Repeat CT today with marked improvement in effusions, small loculations. Low risk of recurrence, recommend ongoing management by Pulmonology and follow up only as needed SIGNATURE: Ciro Romero MD DATE of SERVICE: 02/23/2025 TIME of SERVICE: 2:45 PM HPI: Eduard Russell is a 79 year old who presents today with recurrent pleural effusions. He reports he has a history of COPD which was well managed for many years until 08/2024. He then developed worsening shortness of breath and he presented to the hospital where he was found to have a large bilateral L>R pleural effusion. He underwent thoracentesis with improvement in his symptoms. He has since had multiple recurrences of his effusio (more content not included)... Normal [facility] CT CHEST WO IVCONon 02-24-20 CT CHEST WO IVCON * * *Final Report* * * DATE OF EXAM: Feb 23 2025 1:19PM [facility] 0541 - CT CHEST WO IVCON / PROCEDURE REASON: multiple diagnoses * * * * Physician Interpretation * * * * EXAMINATION: CHEST CT WITHOUT CONTRAST CLINICAL HISTORY: Former smoker with recent cessation with approximately 30-40 pack-year smoking history. Bilateral pleural effusions in the setting of recent respiratory illness in August 2024 requiring multiple high volume recurrent thoracenteses. Technique: Spiral CT acquisition of the chest from the thoracic inlet to the upper abdomen without contrast. MQ: [id number]_6 CT Radiation dose: Integrated Dose-length product (DLP) for this visit = 310 mGy*cm CT Dose Reduction Employed: Automated exposure control(AEC) and iterative recon Comparison: CT chest 10/23/2024. RESULT: Limitations: None. Lines, tubes, and devices: None. Lung parenchyma and airways/pleural space: The central airways are patent. Diffuse bronchial wall thickening. Mild upper lobe predominant paraseptal and centrilobular emphysema. Biapical pleural-parenchymal scarring is likely postinflammatory. Compared to 10/23/2024, there has been interval decrease size of now small bilateral pleural effusions, with the left being partially loculated, and with smooth associated pleural thickening, which is likely reactive. Stable pleural calcifications in both hemithoraces. There is associated curvilinear subsegmental atelectasis versus parenchymal scarring, some in a peribronchovascular distribution primarily within the dependent portions of the bilateral lower lobes and to a lesser extent the inferior lingula. There is a new groundglass and nodular consolidative opacities in the right upper lobe with associated interlobular septal thickening (3:75) and groundglass opacity in the left upper lobe/lingula (3:93). Lower neck, lymph nodes, and mediastinum: The imaged thyroid gland is normal. Few prominent/borderline enlarged mediastinal and bilateral hilar lymph nodes are slightly larger since the prior exam, for example a 11 mm subcarinal node (4:108) previously measured 7 mm.. Tiny hiatal hernia with suspected circumferential thickening of the lower esophagus, which is likely due to under distention. Heart, pericardium, and thoracic vessels: The thoracic aorta is normal in caliber. Atherosclerotic calcifications of the thoracic aorta, aortic root, and aortic valve leaflet. RIGHT and LEFT pulmonary arteries are dilated, a finding that can be seen in the setting of pulmonary hypertension. The cardiac chambers are normal in size. Blood in the cardiac chambers appears relatively hypodense versus the interventricular septum, a finding associated with anemia. Severe multivessel coronary artery atherosclerotic calcifications are noted, although the study is not optimized for coronary assessment. No pericardial effusion or thickening. Bones and soft tissues: No destructive bone lesion. Thoracic spine degenerative changes. Osteopenia. 4 mm soft tissue nodules in the anterior RIGHT chest wall are more prominent since the prior exam (image 144). Upper abdomen: Stable diffuse thickening of both adrenals, LEFT worse than RIGHT colonic diverticulosis without evidence of diverticulitis.. Localizer images: No additional findings. IMPRESSION: Compared to 10/23/2024, there has been interval decrease size of now small bilateral pleural effusions with the RIGHT being partially loculated and with associated smooth pleural thickening which is likely reactive. Interval development of a RIGHT upper lobe predominant nodular consolidations with groundglass changes and interlobular septal thickening which is favored to represent an infectious/inflammatory process given rapid liner roll changer short interval time, although short-term (1-3 months) follow-up is recommended to ensure resolution. Multiple prominent/borderline enlarged mediastinal and bilateral hilar lymph nodes are likely reactive, some increased since the prior exam. It Architecture Consultant: TWIN Transcribe Date/Time: Feb 28 2025 11:10A Dictated by : KAIA DEAL, DO This examination was interpreted and the report reviewed and electronically signed by: RENAN COVARRUBIAS MD on Feb 28 2025 1:42PM EST [id number] Normal [facility] Body Fluid Cell Count+Diffon 01-24-2025 PATH COMM/BF Reviewed Normal [facility] Comment on above: Order Comment: The r eference range and other method performancespecifications have not been established for this bodyfluid. The test must be integrated into the clinicalcontext for interpretation.PLEURAL EFFUSION-LEFT CHEST THORACENTESI Result Comment: Revi ewed by Dr. Fierro.Jyoti Fierro MD 01/24/2025 AMENDED REPORT 01/24/25 0754 PATH COMM/BF previously reported as: May follow Performed By: #### L 504.0250, L503.0300, M100.2000, L350.1000, M100.2900, M100.4001, L503.0100, L3410.9992, L200.0200 ####[facility] [address] [place], [address] Cheston 01-19-2025 Chest Normal [facility] CNPNon 01-16-2025 CNPN Telephone (THORMN) ----- EDUARD RUSSELL ([id number]) 1945 M T Date Time Provider Department 01/16/25 [facility] THORACIC SURGERY THORMN During your visit today, we recorded the following information about you: Rosanna Hanna 01/16/2025 10:00 AM Ivon Thurman from Guerita's office called to see if referral has been received. She said it was faxed on , 01/11. Checked with Ania Galicia Said it was received. Reports and radiology imaging is needed. Advised Cuca to send all to: [phone] Dr Guerita Thurman - Communications Representative [address], [place] [address] Allergies As of Date: 01/16/2025 Noted Allergy Reaction SHELLFISH 07/10/2011 10 - Anaphylaxis Date Reviewed: 08/25/2023 Reviewed by: Racheal Sanchez LPN - Fully Assessed Reason for Visit: Calling About Referral - Was It Received? [Other] Prescriptions as of 01/16/2025 - BREO ELLIPTA 100-25 mcg/dose inhaler Inhale 1 Inhalation as instructed once daily. - methIMAzole (TAPAZOLE) 5 mg tablet Take 1 tablet by mouth once daily. - sildenafil (VIAGRA) 50 mg tablet Take 1 tablet by mouth once daily as needed. Problem List As Of Date 01/16/2025 Noted Resolved Graves disease [E05.00] 04/09/2006 COPD (chronic obstructive pulmonary disease) (H*07/29/2011 Encounter Status:Closed by HANNAROSANNA PERKINS [facility]/16/25 [facility] EDUARD RUSSELL ([id number]) 1945 [facility] Date Time Provider Department 01/16/25 TOVA ANNA During your visit today, we recorded the following information about you: Ania Sanchez 01/16/2025 10:03 AM Signed LOCAL PATIENT Received Fax referring patient Eduard Grewal Dilmabrice is being referred to Tova Anna M.D., Ph. D. by Issac Dexter MD ([facility]) [address] [place] [address] [place] [facility] [id number] Patient diagnosis/Reason for consult: Recurrent Pleural Effusion Referral triage process explained: No Patient will receive a call from Thoracic NPM after triage review with surgeon to discuss any additional testing and/or consults that will be scheduled. Pt will then receive a call from our scheduling office for scheduling. Please call pt at [phone]. Patient was informed consultation could be at [place] or [facility]: No Patient Registration: Registration complete/updated: no Insurance card(s) scanned in [facility] with in the past year: Yes: Date: 01/16/2025 Pt's Plyce is active. Ok to communicate to pt via Plyce not asked Medical Records: Records in [facility] (internal CC records): Yes Imaging in [facility] (internal CC records): Yes Care Everywhere - queried yes, downloaded Yes Linked Outside Organizations (list): OSH Records Requested: yes Outside Hospital(s) requested records from: Dr. Dexter's office Received: no Uploaded: No. Waiting on additional records: Yes. Missing (list): Echo Report Radiology Report(s) Pathology Report(s) OSH Pathology Slides Requested: no OSH Radiology Imaging Requested: yes Outside Hospital(s) requested imaging from: Dr. Dexter's office. Received: no Imaging uploaded: No Waiting on additional: Yes. Missing (list): CT and XR Additional providers added to Care Teams: No Additional Notes/Comments: Enct to be routed to [facility] once insurance cards are viewable Enct routed to: No Ania Garcia 01/16/2025 10:58 AM Signed Insurance Card(s) scanned into Epic External Correspondence - Insurance Card (01/16/2025) External Correspondence - Face Sheet (01/16/2025) External Correspondence - Face Sheet (01/16/2025) Please update/review registration Thank You! Elias Rosanna 01/16/2025 3:00 PM Signed Confirmed patient's insurance already in the system and verified. Ania Sanchez 01/22/2025 10:05 AM Signed Received requested radiology imaging Images viewable in Epic Encounter routed to [facility]' for further review Clementine Robbins, SATURNINO 01/22/2025 12:47 PM Signed Thoracic Surgery Consultation - review of records for appointment scheduling Received medical records from the office of Issac Dexter MD ([facility]) [facility] [place] [address] Patient is being referred to Tova Anna M.D., Ph. D. by Issac Dexter V for Pleural Effusion Outside hospital records Care Everywhere Pathology: Procedures: 11/27/24 thoracentesis 895 cc out Imaging cxr 11/24/24 post thoracentesis Cardiopulmonary Testing PFT's/Six: need report from [facility]: any testing? Office Notes/Consults 01/11/2025 External Document(s) - Office Notes (01/11/2025) 12/20/24 gueritaExternal Document(s) - Office Notes (12/20/2024) History of: FAMILY HISTORY Problem Relation Age of Onset Cancer Mother Colon Cancer Mother Alzheimer's Disease Mother Heart disease Father Coronary Artery Disease Father 71 fatal ID PAST MEDICAL HISTORY Diagnosis Date Asthma COPD (chronic obstructive pulmonary disease) (HCC) Grave's disease Tobacco abuse PAST SURGICAL HISTORY Procedure Laterality Date SEPTOPLASTY ~1999 nasal SHOULDER ARTHROSCOPY/SURGERY age 42 SOCIAL HISTORY[1] Request consult with dr anna ct chest hold on p/d/s given pt effusions Clementine Monae RN [1] Social History Tobacco Use Smoking status: Every Day Current packs/day: 1.00 Types: Cigarettes Smokeless tobacco: Never Vaping Use Vaping status: Never Used Substance Use Topics Alcohol use: Yes Comment: occasional Drug use: Not Currently Referring Provider: ISSAC DEXTER V [[id number]] Allergies As of Date: 01/16/2025 Noted Allergy Reaction SHELLFISH 07/10/2011 10 - Anaphylaxis Date Reviewed: 08/25/2023 Reviewed by: Racheal Sanchez LPN - Fully Assessed Reason for Visit: Referral Information [[id number]] Primary Visit Diagnosis:Chronic obstructive pulmonary disease, unspecified COPD type (HCC) [J44.9] Other Visit Diagnosis:Pleural effusion [J90] Order(s):CT CHEST [facility] [[id number]] Order #: [id number] FUTURE Prescriptions as of 01/22/2025 - BREO ELLIPTA 100-25 mcg/dose inhaler Inhale 1 Inhalation as instructed once daily. - methIMAzole (TAPAZOLE) 5 mg tablet Take (more content not included)... Normal [facility] Angiotensin Convert Enzymeon 01-12-2025 ANGIOT-CONV.ENZ 21 U/L Normal [facility] Comment on above: Result Comment: Perf ormed at: [facility] [address] [id number] Director: Jluis Marc PhD, Phone: [phone] Performed By: #### Rosendo [phone] ####[facility] [address] [place], [address] Serum or plasma angiotensin converting enzyme measurement (enzymatic activity/volume)Ordered By: Issac Dexter on 01-11-2025 Angiotensin converting enzyme [Catalytic activity/Vol] 21 U/L [address] [place] [address] Comment on above: Performed at: CB - [facility] [address] [id number] Director: Jluis Marc PhD, Phone: [phone] ANCAon 12-25-2024 Atypical pANCA <1:20 Normal Neg:<1:20 [facility] Comment on above: Result Comment: The atypical pANCA pattern has been observed in asignificant percentage of patients with ulcerative colitis,primary sclerosing cholangitis and autoimmune hepatitis.Performed at: - [facility] Director: Jluis Marc PhD, Phone: [phone] Performed By: #### L 505.7010, L3300.1200, L101.9900, L3100.5475, L3400.8000, L3100.5500, L501.6710 ####[facility] [address] [place], [address] Cytoplasmic Ab <1:20 Normal Neg:<1:20 [facility] Comment on above: Performed By: #### L 505.7010, L3300.1200, L101.9900, L3100.5475, L3400.8000, L3100.5500, L501.6710 ####[facility] [address] [place], [address] Perinuclear Ab. <1:20 Normal Neg:<1:20 [facility] Comment on above: Result Comment: The presence of positive fluorescence exhibiting P-ANCA orC-ANCA patterns alone is not specific for the diagnosis ofWegener's Granulomatosis (WG) or microscopic polyangiitis.Decisions about treatment should not be based solely onANCA IFA results. The International ANCA Group Consensusrecommends follow up testing of positive sera with both GA-3 and MPO-ANCA enzyme immunoassays. As many as 5% serumsamples are positive only by EIA. Ref. AM J Clin Borvrf1698;111:507-513. Performed By: #### L 505.7010, L3300.1200, L101.9900, L3100.5475, L3400.8000, L3100.5500, L501.6710 ####[facility] [address] [place], [address] Quantiferon TB-Gold+on 12-25 QFT MITOGEN RITESH > 10.00 Normal . [facility] Comment on above: Performed By: #### L 505.7010, L3300.1200, L101.9900, L3100.5475, L3400.8000, L3100.5500, L501.6710 ####[facility] [address] [place], [address]([phone] QFT NIL VALUE 0.02 IU/mL Normal . [facility] Comment on above: Performed By: #### L 505.7010, L3300.1200, L101.9900, L3100.5475, L3400.8000, L3100.5500, L501.6710 ####[facility] [address] [place], [address] QFT TB GOLD+ Comment Normal . [facility] Comment on above: Result Comment: Darwin tiFERON-TB Gold Plus is a qualitative indirect test forM tuberculosis infection (including disease) and isintended for use in conjunction with risk assessment,radiography, and other medical and diagnostic evaluations.The QuantiFERON-TB Gold Plus result is determined bysubtracting the Nil value from either TB antigen (Ag)value. The Mitogen tube serves as a control for the test. Performed By: #### L 505.7010, L3300.1200, L101.9900, L3100.5475, L3400.8000, L3100.5500, L501.6710 ####[facility] [address] [place], [address] QFT TB POS CRIT Negative Normal Negative [facility] Comment on above: Result Comment: No r esponse to M tuberculosis antigens detected.Infection with M tuberculosis is unlikely, but high riskindividuals should be considered for additional testing(ATS/IDSA/CDC Clinical Practice Guidelines, 2017). Thereference range is an Antigen minus Nil result of <0.35IU/mL.The specimen received for QuantiFERON testing was incubatedby the ordering institution. Specific procedures outlinedin our Directory of Services and in the package insert forthe QuantiFERON Gold (In Tube) test must be followed toenable for proper stimulation of cells for the productionof interferon gamma. Chemiluminescence immunoassaymethodology Performed By: #### L 505.7010, L3300.1200, L101.9900, L3100.5475, L3400.8000, L3100.5500, L501.6710 ####[facility] [address] [place], [place], [id number] QFT TB1+ AG RITESH 0.03 IU/mL Normal . [facility] Comment on above: Performed By: #### L 505.7010, L3300.1200, L101.9900, L3100.5475, L3400.8000, L3100.5500, L501.6710 ####[facility] [address] [place], [place], [phone] QFT TB2+ AG RITESH 0.04 IU/mL Normal . [facility] Comment on above: Performed By: #### L 505.7010, L3300.1200, L101.9900, L3100.5475, L3400.8000, L3100.5500, L501.6710 ####[facility] [address] [place], [place], [id number] ANTINUCLEAR ANTIBODIES DIREC Ton 12-22-2024 LEON,DIRECT Negative Normal Negative [facility] Comment on above: Result Comment: Perf ormed at: - [facility] [id number] Director: Jluis Marc PhD, Phone: [phone] Performed By: #### L 505.7010, L3300.1200, L101.9900, L3100.5475, L3400.8000, L3100.5500, L501.6710 ####[facility] [address] [place], [place], [id number] Anti-dsDNA Abon 12-22-2024 ANTI-DNA (DS)AB 1 IU/mL Normal 0-9 [facility] Comment on above: Result Comment: Nega tive <5 Equivocal 5 - 9 Positive >9 Performed By: #### L 505.7010, L3300.1200, L101.9900, L3100.5475, L3400.8000, L3100.5500, L501.6710 ####[facility] [address] [place], [address] CRPon 12-20-2024 C-REACTIVE PROT 51.30 mg/L High 0.0-3.0 [facility] Comment on above: Order Comment: PT RE FUSED ALL OTHER BLOOD WORK Performed By: #### L 505.7010, L3300.1200, L101.9900, L3100.5475, L3400.8000, L3100.5500, L501.6710 ####[facility] [address] [facility]. [place], [place], [id number] Cheston 12-20-2024 Chest Normal [facility] Erythrocyte Sed Rateon 12-20 SED RATE 50 mm/hr High 0-20 [facility] Comment on above: Performed By: #### L 505.7010, L3300.1200, L101.9900, L3100.5475, L3400.8000, L3100.5500, L501.6710 ####[facility] [address] [facility]. [place], [place], [id number] Erythrocyte sedimentation ra teOrdered By: Rhonda Taylor on 12-20-2024 ESR (Bld) [Velocity] 50 mm/h High 0-20 [facility] Internal Medicine Office Vis iton 12-20-2024 Internal Medicine Office Visit Normal [facility] Qualitative QuantiFERON-TB g old in tube testOrdered By: Rhonda Taylor on 12-20-2024 M. tuberculosis tuberculin stim IFN-g Ql (Bld) 0.03 IU/mL . [facility] Rheumatoid Factoron 12-21-19 25 RHEUMATOID FAC < 10.0 Normal <15 [facility] Comment on above: Order Comment: PT RE FUSED ALL OTHER BLOOD WORK Performed By: #### L 505.7010, L3300.1200, L101.9900, L3100.5475, L3400.8000, L3100.5500, L501.6710 ####[facility] [address] [place], [address] Serum DNA double strand anti body assay (units/volume)Ordered By: Rhonda Taylor on 12-20-2024 DNA double strand Ab Qn (S) 1 [IU]/mL 0-9 [facility] Comment on above: Negative <5 Equivoca l 5 - 9 Positive >9 Serum classic neutrophil cyt oplasmic antibody assay (units/volume)Ordered By: Rhonda Taylor on 12-20-2024 Neutrophil cytoplasmic Ab.classic Qn (S) <1:20 titer Neg:<1:20 [facility] Serum or plasma C reactive p rotein measurement (mass/volume)Ordered By: Rhonda Taylor on 12-20-2024 CRP [Mass/Vol] 51.30 mg/L High 0.0-3.0 [facility] Serum perinuclear neutrophil cytoplasmic antibody titer by immunofluorescenceOrdered By: Rhonda Taylor on 12-20-2024 Neutrophil cytoplasmic Ab.perinuclear IF (S) [Titer] <1:20 titer Neg:<1:20 [facility] Comment on above: The presence of posi tive fluorescence exhibiting P-ANCA orC-ANCA patterns alone is not specific for the diagnosis ofWegener's Granulomatosis (WG) or microscopic polyangiitis.Decisions about treatment should not be based solely onANCA IFA results. The International ANCA Group Consensusrecommends follow up testing of positive sera with both GA-3 and MPO-ANCA enzyme immunoassays. As many as 5% serumsamples are positive only by EIA. Ref. AM J Clin Ofpepk7394;111:507-513. Serum rheumatoid factor dete ctionOrdered By: Rhonda Taylor on 12-20-2024 Rheumatoid factor Ql (S) < 10.0 IU/mL <15 [facility] Body Fluid Cell Count+Diffon 12-14-2024 PATH COMM/BF Reviewed Normal [facility] Comment on above: Order Comment: The r eference range and other method performancespecifications have not been established for this bodyfluid. The test must be integrated into the clinicalcontext for interpretation.RT THORA Result Comment: NO M ALIGNANT CELLS IDENTIFIED.EOSINOPHILIA IS A NONSPECIFIC FINDING THAN CAN BE SEEN WITHINFECTION, DRUG REACTION, MALIGNANCY, PULMONARY EMBOLISM ANDCHEST TRAUMA.Jyoti Fierro MD 12/14/2024 AMENDED REPORT 12/14/24903 PATH COMM/BF previously reported as: May follow Performed By: #### M 100.2900, L350.1000, M100.4001, L503.0300, L504.0250, M100.2000, L200.0200, M600.2200 ####[facility] [address] [place], [place], [address] Fungus Stain 8136on 12-15-19 FUNST TESTING PERFORMED AT [facility]. ORIGINAL REPORT ON FILE IN LAB CONTAINS ADDITIONAL TEST SITE INFORMATION. Fungus Stain No fungus observed. Normal [facility] Comment on above: Performed By: #### M 100.2900, L350.1000, M100.4001, L503.0300, L504.0250, M100.2000, L200.0200, M600.2200 ####[facility] [address] [place], [address] Culture, Anaerobic Any Sourc xuan 12-12-2024 CUAN UNK UNK No growth in 5 days. Normal [facility] Comment on above: Performed By: #### M 100.2900, L350.1000, M100.4001, L503.0300, L504.0250, M100.2000, L200.0200, M600.2200 ####[facility] [address] [place], [address] Acid Fast Bacillus Cultureon 12-09-2024 tAFBC Normal [facility] Comment on above: Performed By: #### M 300.3000, M300.2000 ####[facility] [address] [place], [address] Acid Fast Bacillus Smear/Flu oron 12-09-2024 tafb Normal [facility] Comment on above: Performed By: #### M 300.3000, M300.2000 ####[facility] [address] [place], [address] Body Fluid Culton 12-08-2024 BFC UNK UNK Culture exhibits no growth. Normal [facility] Comment on above: Performed By: #### M 100.2900, L350.1000, M100.4001, L503.0300, L504.0250, M100.2000, L200.0200, M600.2200 ####[facility] [address] [place], [address] Anaerobic cultureOrdered By: Rhonda Taylor on 12-07-2024 Bacteria identified Anaer cx Nom (Unsp spec) No growth in 5 days. [facility] Body fluid appearance (nomin al result)Ordered By: Rhonda Taylor on 12-07-2024 Appearance (Body fld) SL CLDY [facility] Body fluid color determinati onOrdered By: Rhonda Taylor on 12-07-2024 Color (Body fld) LT YEL [facility] Body fluid cultureOrdered By : Rhonda Taylor on 12-07-2024 Microbial culture, body fluid Culture exhibits no growth. [facility] Body fluid lactate dehydroge nase measurement (enzymatic activity/volume) by pyruvateOrdered By: Rhonda Taylor on 12-07-2024 LDH Pyruvate to lactate reaction (Body fld) [Catalytic activity/Vol] 389 Units/L Not Establ. [facility] Body fluid leukocytes count (number/volume)Ordered By: Rhonda Taylor on 12-07-2024 WBC (Body fld) [#/Vol] 1.333 10*3/uL [facility] Body fluid lymphocytes/100 l eukocytesOrdered By: Rhonda Taylor on 12-07-2024 Lymphocytes/100 WBC (Body fld) 28 % [facility] Body fluid macrophage countO rdered By: Rhonda Taylor on 12-07-2024 Macrophages (Body fld) [#/Vol] 1 % [facility] Body fluid mononuclear cell percentageOrdered By: Rhonda Taylor on 12-07-2024 Mononuclear cells/100 WBC (Body fld) 44.9 % [facility] Body fluid other cell count as percentage of leukocytesOrdered By: Rhonda Taylor on 12-07-2024 Other cells/100 WBC (Body fld) 65 % [facility] Comment on above: ALL EOSINOPHILS Body fluid protein measureme nt (mass/volume)Ordered By: Rhonda Taylor on 12-07-2024 Protein (Body fld) [Mass/Vol] 4.3 g/dL Not Establ. [facility] Body fluid segmented neutrop hils count (number/volume)Ordered By: Rhonda Taylor on 12-07-2024 Segmented neutrophils (Body fld) [#/Vol] 2 % [facility] Body fluid total cell countO rdered By: Rhonda Taylor on 12-07-2024 Cells Counted Total (Body fld) [#] 1.336 10^3/ul [facility] Comment on above: This is the Total Nu mber of Nucleated Cell Types in the Body Fluid. Cytology report of Body flui d Cyto stainOrdered By: Rhonda Taylor on 12-07-2024 Cytology report Cyto stain Doc (Body fld) SEE PATHOLOGY REPORT [facility] Comment on above: Specimen submitted t o Anatomical Pathology Department for testing. Cytology, Body Fluid / CSFon 12-07-2024 CYTOLOGY,BF/CSF SEE PATHOLOGY REPORT Normal [facility] Comment on above: Order Comment: RT TH ORA Result Comment: Spec imen submitted to Anatomical Pathology Department fortesting. Performed By: #### M 100.2900, L350.1000, M100.4001, L503.0300, L504.0250, M100.2000, L200.0200, M600.2200 ####[facility] [address] [place], [address] Fungus stainOrdered By: Jose Taylor on 12-07-2024 Fungus identified Fungus stain Nom (Unsp spec) [facility] Gram Stainon 12-07-2024 GS UNK UNK Centrifuged Specimen? Culture performed on centrifuged specimen Gram Stain 1+ White Blood Cells No organisms seen Normal [facility] Comment on above: Performed By: #### M 100.2900, L350.1000, M100.4001, L503.0300, L504.0250, M100.2000, L200.0200, M600.2200 ####[facility] [address] [place], [address] Gram stainOrdered By: Carlos Taylor on 12-07-2024 Microscopic observation Gram stain Nom (Unsp spec) [facility] LDH,Body Fluidon 12-07-2024 LDH,BF 389 Units/L Normal Not Establ. [facility] Comment on above: Order Comment: RT TH ORA Performed By: #### M 100.2900, L350.1000, M100.4001, L503.0300, L504.0250, M100.2000, L200.0200, M600.2200 ####[facility] [address] [place], [place], [id number] Monocyte detectionOrdered By : Rhonda Taylor on 12-07-2024 Monocytes/100 WBC (Bld) 4 % [facility] No Panel InformationOrdered By: Rhonda Taylor on 12-07-2024 Body Fluid Comment 2 SEE COMMENT [facility] Comment on above: .INTERPRETATION OF R ESULTS: Differentiation of transudate and exudate fluid: TRANSUDATE EXUDATE Color- Clear,straw colored Clear,turbid,bloody,purulent RBCs- Usually none to few Often present in high numbers WBCs- Usually none to few Often present in high numbers DIFF Few lymphocytes or Lymphocytes, neutrophils, andCount- mesothelial cells. polymorphonuclear cells . Body Fluid RBC 1105 /mm3 [facility] 1105 /mm3 [facility] SEE COMMENT [facility] Pathologist interpretation o f Body fluid testsOrdered By: Rhonda Taylor on 12-07-2024 Pathologist interpretation (Body fld) [Interp] Reviewed [facility] Comment on above: Previous reported re sult: October follow Edited by: HARJINDER on 12/14/24:0904NO MALIGNANT CELLS IDENTIFIED.EOSINOPHILIA IS A NONSPECIFIC FINDING THAN CAN BE SEEN WITH INFECTION, DRUG REACTION, MALIGNANCY, PULMONARY EMBOLISM AND CHEST TRAUMA.Jyoti Fierro MD 12/14/2024 AMENDED REPORT 12/14/24 0904 PATH COMM/BF previously reported as: May follow Protein, Body Fluidon 2024 Protein [Mass/Vol] 4.3 g/dL Normal Not Establ. [facility] Comment on above: Order Comment: RT TH ORA Performed By: #### M 100.2900, L350.1000, M100.4001, L503.0300, L504.0250, M100.2000, L200.0200, M600.2200 ####[facility] [address] [place], [place], [address] Special Stain Group IIon Special Stain Group II Normal [facility] Comment on above: Performed By: #### P SSII ####[facility] [address] [place], [place], [address] Specimen source identificati on of body fluidOrdered By: Rhonda Taylor on 12-07-2024 Specimen source Nom (Body fld) THORACENTESIS [facility] Thoracentesis W USon 025 Thoracentesis W US Normal [facility] Pulmonary Visit Reporton Pulmonary Visit Report Normal [facility] Culture, Anaerobic Any Sourc xuan 12-02-2024 CUAN UNK UNK No growth in 5 days. Normal [facility] Comment on above: Performed By: #### L 200.0200, M100.4001, M100.2000, L350.1000, M100.2900, L504.0250, L503.0300 ####[facility] [address] [place], [place], [address] 6 Minute Walk Teston 025 6 Minute Walk Test Normal [facility] Body Fluid Cell Count+Diffon 11-30-2024 PATH COMM/BF Reviewed Normal [facility] Comment on above: Order Comment: The r eference range and other method performancespecifications have not been established for this bodyfluid. The test must be integrated into the clinicalcontext for interpretation.RT THORA Result Comment: EOSI NOPHILIA.NO MALIGNANT CELLS SEEN.Jyoti Fierro MD 11/30/2024 AMENDED REPORT 11/30/24 1111 PATH COMM/BF previously reported as: May follow Performed By: #### L 200.0200, M100.4001, M100.2000, L350.1000, M100.2900, L504.0250, L503.0300 ####[facility] [address] [place], [address] Body Fluid Culton 11-29-2024 BF UNK UNK Culture exhibits no growth. Normal [facility] Comment on above: Performed By: #### L 200.0200, M100.4001, M100.2000, L350.1000, M100.2900, L504.0250, L503.0300 ####[facility] [address] [place], [address] Body Fluid Cell Count+Diffon 11-28-2024 OTHER CELL/BF 21 Normal [facility] Comment on above: Order Comment: The r eference range and other method performancespecifications have not been established for this bodyfluid. The test must be integrated into the clinicalcontext for interpretation.THORA LF AMENDED REPORT 11/28/24 1136 PMN previously reported as: 23 % Result Comment: 19 E OSINOPHILS2 BASOPHILS Performed By: #### L 504.0250, L200.0200, M100.2900, M100.2000, L503.0300, M100.4001, L350.1000 ####[facility] [address] [place], [address] Gram Stainon 11-28-2024 GS UNK UNK Centrifuged Specimen? Culture performed on centrifuged specimen Gram Stain 2+ White Blood Cells No organisms seen Normal [facility] Comment on above: Performed By: #### L 200.0200, M100.4001, M100.2000, L350.1000, M100.2900, L504.0250, L503.0300 ####[facility] [address] [place], [address] Anaerobic cultureOrdered By: Rhonda Taylor on 11-27-2024 Bacteria identified Anaer cx Nom (Unsp spec) No growth in 5 days. [facility] Body fluid appearance (nomin al result)Ordered By: Rhonda Taylor on 11-27-2024 Appearance (Body fld) CLOUDY [facility] Body fluid color determinati onOrdered By: Rhonda Taylor on 11-27-2024 Color (Body fld) YELLOW [facility] Body fluid cultureOrdered By : Rhonda Taylor on 11-27-2024 Microbial culture, body fluid Culture exhibits no growth. [facility] Body fluid erythrocytes coun t (number/volume)Ordered By: Rhonda Taylor on 11-27-2024 RBC (Body fld) [#/Vol] 5 10*3/uL [facility] Body fluid lactate dehydroge nase measurement (enzymatic activity/volume) by pyruvateOrdered By: Rhonda Taylor on 11-27-2024 LDH Pyruvate to lactate reaction (Body fld) [Catalytic activity/Vol] 512 Units/L Not Establ. [facility] Body fluid leukocytes count (number/volume)Ordered By: Rhonda Taylor on 11-27-2024 WBC (Body fld) [#/Vol] 1.740 10*3/uL [facility] Body fluid lymphocytes/100 l eukocytesOrdered By: Rhonda Taylor on 11-27-2024 Lymphocytes/100 WBC (Body fld) 18 % [facility] Body fluid mononuclear cell percentageOrdered By: Rhonda Taylor on 11-27-2024 Mononuclear cells/100 WBC (Body fld) 34.3 % [facility] Body fluid other cell count as percentage of leukocytesOrdered By: Rhonda Taylor on 11-27-2024 Other cells/100 WBC (Body fld) 68 % [facility] Comment on above: ALL EOSINOPHILS Body fluid protein measureme nt (mass/volume)Ordered By: Rhonda Taylor on 11-27-2024 Protein (Body fld) [Mass/Vol] 4.4 g/dL Not Establ. [facility] Body fluid segmented neutrop hils count (number/volume)Ordered By: Rhonda Taylor on 11-27-2024 Segmented neutrophils (Body fld) [#/Vol] 2 % [facility] Body fluid total cell countO rdered By: Rhonda Taylor on 11-27-2024 Cells Counted Total (Body fld) [#] 1.746 10^3/ul [facility] Comment on above: This is the Total Nu mber of Nucleated Cell Types in the Body Fluid. Cytology report of Body flui d Cyto stainOrdered By: Rhonda Taylor on 11-27-2024 Cytology report Cyto stain Doc (Body fld) SEE PATHOLOGY REPORT [facility] Comment on above: Specimen submitted t o Anatomical Pathology Department for testing. Cytology, Body Fluid / CSFon 11-27-2024 CYTOLOGY,BF/CSF SEE PATHOLOGY REPORT Normal [facility] Comment on above: Order Comment: RT TH ORA Result Comment: Spec imen submitted to Anatomical Pathology Department fortesting. Performed By: #### L 200.0200, M100.4001, M100.2000, L350.1000, M100.2900, L504.0250, L503.0300 ####[facility] [address] [place], [place], [id number] Gram stainOrdered By: Carlos Taylor on 11-27-2024 Microscopic observation Gram stain Nom (Unsp spec) [facility] LDH,Body Fluidon 11-27-2024 LDH,BF 512 Units/L Normal Not Establ. [facility] Comment on above: Order Comment: RT TH ORA Performed By: #### L 200.0200, M100.4001, M100.2000, L350.1000, M100.2900, L504.0250, L503.0300 ####[facility] [address] [place], [place], [id number] Monocyte detectionOrdered By : Rhonda Taylor on 11-27-2024 Monocytes/100 WBC (Bld) 12 % [facility] No Panel InformationOrdered By: Rhonda Taylor on 11-27-2024 Body Fluid Comment 2 SEE COMMENT [facility] Comment on above: .INTERPRETATION OF R ESULTS: Differentiation of transudate and exudate fluid: TRANSUDATE EXUDATE Color- Clear,straw colored Clear,turbid,bloody,purulent RBCs- Usually none to few Often present in high numbers WBCs- Usually none to few Often present in high numbers DIFF Few lymphocytes or Lymphocytes, neutrophils, andCount- mesothelial cells. polymorphonuclear cells . SEE COMMENT [facility] Pathologist interpretation o f Body fluid testsOrdered By: Rhonda Taylor on 11-27-2024 Pathologist interpretation (Body fld) [Interp] Reviewed [facility] Comment on above: Previous reported re sult: May follow Edited by: HARJINDER on 11/30/24:1111EOSINOPHILIA.NO MALIGNANT CELLS SEEN.Jyoti Fierro MD 11/30/2024 AMENDED REPORT 11/30/24 1111 PATH COMM/BF previously reported as: May follow Protein, Body Fluidon 2024 Protein [Mass/Vol] 4.4 g/dL Normal Not Establ. [facility] Comment on above: Order Comment: RT TH ORA Performed By: #### L 200.0200, M100.4001, M100.2000, L350.1000, M100.2900, L504.0250, L503.0300 ####[facility] [address] [place], [place], [id number] Special Stain Group IIon Special Stain Group II Normal [facility] Comment on above: Performed By: #### P SSII ####[facility] [address] [place], [place], [id number] Specimen source identificati on of body fluidOrdered By: Rhonda Taylor on 11-27-2024 Specimen source Nom (Body fld) THORACENTESIS [facility] Thoracentesis W USon 025 Thoracentesis W US Normal [facility] Culture, Anaerobic Any Sourc xuan 11-26-2024 CUAN UNK UNK No anaerobic bacteria isolated. Normal [facility] Comment on above: Performed By: #### L 504.0250, L200.0200, M100.2900, M100.2000, L503.0300, M100.4001, L350.1000 ####[facility] [address] [place], [address] Body Fluid Culton 11-25-2024 BFC UNK UNK Culture exhibits no growth. Normal [facility] Comment on above: Performed By: #### L 504.0250, L200.0200, M100.2900, M100.2000, L503.0300, M100.4001, L350.1000 ####[facility] [address] [place], [address] Gram Stainon 11-25-2024 GS UNK UNK Gram Stain 1+ White Blood Cells 1+ Red Blood Cells No organisms seen Normal [facility] Comment on above: Performed By: #### L 504.0250, L200.0200, M100.2900, M100.2000, L503.0300, M100.4001, L350.1000 ####[facility] [address] [place], [address] Anaerobic cultureOrdered By: Rhonda Taylor on 11-24-2024 Bacteria identified Anaer cx Nom (Unsp spec) No anaerobic bacteria isolated. [facility] Body fluid appearance (nomin al result)Ordered By: Rhonda Taylor on 11-24-2024 Appearance (Body fld) CLOUDY [facility] Body fluid color determinati onOrdered By: Rhonda Taylor on 11-24-2024 Color (Body fld) YELLOW [facility] Body fluid cultureOrdered By : Rhonda Taylor on 11-24-2024 Microbial culture, body fluid Culture exhibits no growth. [facility] Body fluid erythrocytes coun t (number/volume)Ordered By: Rhonda Taylor on 11-24-2024 RBC (Body fld) [#/Vol] 3 10*3/uL [facility] Body fluid lactate dehydroge nase measurement (enzymatic activity/volume) by pyruvateOrdered By: Rhonda Taylor on 11-24-2024 LDH Pyruvate to lactate reaction (Body fld) [Catalytic activity/Vol] 172 Units/L Not Establ. [facility] Body fluid leukocytes count (number/volume)Ordered By: Rhonda Taylor on 11-24-2024 WBC (Body fld) [#/Vol] 1.868 10*3/uL [facility] Body fluid lymphocytes/100 l eukocytesOrdered By: Rhonda Taylor on 11-24-2024 Lymphocytes/100 WBC (Body fld) 56 % [facility] Comment on above: Previous reported re sult: 43 %Edited by: BRITTANIE on 11/28/24:1141 AMENDED REPORT 11/28/24 1141 LYMPH previously reported as: 43 % Body fluid macrophage countO rdered By: Rhonda Taylor on 11-24-2024 Macrophages (Body fld) [#/Vol] 7 % [facility] Comment on above: Previous reported re sult: 15 %Edited by: BRITTANIE on 11/28/24:1141 AMENDED REPORT 11/28/24 1141 MACROPHAGES previously reported as: 15 % Body fluid mononuclear cell percentageOrdered By: Rhonda Taylor on 11-24-2024 Mononuclear cells/100 WBC (Body fld) 76.8 % [facility] Body fluid other cell count as percentage of leukocytesOrdered By: Rhonda Taylor on 11-24-2024 Other cells/100 WBC (Body fld) 21 % [facility] Comment on above: 19 EOSINOPHILS2 BASO PHILS Body fluid protein measureme nt (mass/volume)Ordered By: Rhonda Taylor on 11-24-2024 Protein (Body fld) [Mass/Vol] 4.6 g/dL Not Establ. 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 Chest Insp/Exp 2 Viewon 11-06 Chest Insp/Exp 2 View Normal [facility] Cytology report of Body flui d Cyto stainOrdered By: Rhonda Taylor on 11-24-2024 Cytology report Cyto stain Doc (Body fld) SEE PATHOLOGY REPORT [facility] Comment on above: Specimen submitted t o Anatomical Pathology Department for testing. Cytology, Body Fluid / CSFon 11-24-2024 CYTOLOGY,BF/CSF SEE PATHOLOGY REPORT Normal [facility] Comment on above: Order Comment: THORA LF Result Comment: Spec imen submitted to Anatomical Pathology Department fortesting. Performed By: #### L 504.0250, L200.0200, M100.2900, M100.2000, L503.0300, M100.4001, L350.1000 ####[facility] [address] [place], [address] Gram stainOrdered By: Carlos Taylor on 11-24-2024 Microscopic observation Gram stain Nom (Unsp spec) [facility] LDH,Body Fluidon 11-24-2024 LDH,BF 172 Units/L Normal Not Establ. [facility] Comment on above: Order Comment: THORA LF Performed By: #### L 504.0250, L200.0200, M100.2900, M100.2000, L503.0300, M100.4001, L350.1000 ####[facility] [address] [place], [place], [id number] Monocyte detectionOrdered By : Rhonda Taylor on 11-24-2024 Monocytes/100 WBC (Bld) 16 % [facility] Comment on above: Previous reported re sult: 19 %Edited by: BRITTANIE on 11/28/24:1141 AMENDED REPORT 11/28/24 1141 MONO/BF previously reported as: 19 % No Panel InformationOrdered By: Rhonda Taylor on 11-24-2024 Body Fluid Comment 2 SEE COMMENT [facility] Comment on above: .INTERPRETATION OF R ESULTS: Differentiation of transudate and exudate fluid: TRANSUDATE EXUDATE Color- Clear,straw colored Clear,turbid,bloody,purulent RBCs- Usually none to few Often present in high numbers WBCs- Usually none to few Often present in high numbers DIFF Few lymphocytes or Lymphocytes, neutrophils, andCount- mesothelial cells. polymorphonuclear cells . SEE COMMENT [facility] Operative Reporton Operative Report Normal [facility] Pathologist interpretation o f Body fluid testsOrdered By: Rhonda Taylor on 11-24-2024 Pathologist interpretation (Body fld) [Interp] Reviewed [facility] Comment on above: Previous reported re sult: May follow Edited by: HARJINDER on 11/27/24:1625ATYPICAL LYMPHOCYTES NOTED WITH SMALL NUCLEOLI, EOSINOPHILIA.Jyoti Fierro MD 11/27/2024 AMENDED REPORT 11/27/24 1625 PATH COMM/BF previously reported as: May follow Protein, Body Fluidon 2024 Protein [Mass/Vol] 4.6 g/dL Normal Not Establ. [facility] Comment on above: Order Comment: TYREE LF Performed By: #### L 504.0250, L200.0200, M100.2900, M100.2000, L503.0300, M100.4001, L350.1000 ####[facility] [address] [place], [place], [id number] Special Stain Group IIon Special Stain Group II Normal [facility] Comment on above: Performed By: #### P SSII ####[facility] [address] [place], [address] Specimen source identificati on of body fluidOrdered By: Rhonda Tyalor on 11-24-2024 Specimen source Nom (Body fld) THORACENTESIS [facility] Chest Insp/Exp 2 Viewon 11-05 Chest Insp/Exp 2 View Normal [facility] Immunohistochemical Stainson 11-16-2024 Immunohistochemical Stains Normal [facility] Comment on above: Performed By: #### P IMHI ####[facility] [address] [place], [address] Operative Reporton Operative Report Normal [facility] [id number] 11-13-2024 [facility] Misc. COMMENT Normal . [facility] Comment on above: Order Comment: [id number] 0Pleural Fluid Flow Cytometry Result Comment: Test Ordered: [id number] Flow panel: Leukemia/LymphomaFlow Interpretation Comment -Y Reference Range: .No immunophenotypic evidence of a monoclonal B cell or aberrant T cellpopulation detected in a limited evaluation. (See comment.)Flow Comment Comment -Y Reference Range: .Assessment of this sample is limited by low viability. Please also notethat Hodgkin lymphoma, certain large cell lymphomas and non-hematopoieticneoplasms cannot be excluded by flow cytometry analysis. Morphologiccorrelation is required for definitive diagnosis. Please refer to thecytology / histology case, if available, for the final diagnosis.Specimen Type Comment -Y Reference Range: .Pleural fluid/chest cavity fluid*includes thoracentesis fluid and pleural effusionAssessment of Leukocytes Comment -Y Reference Range: .No monoclonal B cell population is detected. kappa:lambda ratio 1.3There is no loss of, or aberrant expression of, the rivera T cell antigens tosuggest a neoplastic T cell process.CD4:CD8 ratio 2.0Analysis of the viable lymphoid cells shows: B cells 14%, T cells 86%Viability Comment -Y Reference Range: .10%This sample is less than 50% viable, which does not meet the standard forroutine analysis. Its analysis is being reported because it is anirreplaceable sample. Because of the diminished certainty for the validityof these results, they must be interpreted in the context of morphologicaland all other test results.Analysis and Gating Strategy Comment -Y Reference Range: .8 color analysis with 7-AAD, CD45/SSC gating Technical-Analysis performed at [facility] [employer], [address], [facility] [address], Director: Aylin Puga, [facility], Phenotype Chart Comment -Y Reference Range: .CD2 Normal CD3 NormalCD4 Normal CD5 NormalCD7 Normal CD8 HvuiazOD41 Normal CD11b WxemypJR98 Normal CD20 QhcimsAT90 Normal CD38 HerdjkMX61 Normal CD56 PqbdsuYC28 Normal [facility]-7 NormalHLA-DR Normal KAPPA NormalLAMBDA NormalResulting Path Name Comment -Y Reference Range: .Alexus Power M.D.Comment: Comment TG Reference Range: .Each antibody in this assay was utilized to assess forpotential abnormalities of studied cell populations or tocharacterize identified abnormalities.This test was developed and its performance characteristicsdetermined by [facility]. It has not been cleared or approvedby the U.S. Food and Drug Administration.The FDA has determined that such clearance or approval isnot necessary. This test is used for clinical purposes. Itshould not be regarded as investigational or for research.Performed at: -Y - [facility] [id number] [facility], [place] [id number] Director: Aylin Puga [facility], Phone: [phone] at: [facility] [id number] [place], [place] [id number] Director: Aylin Puga [facility], Phone: [phone] at: [facility] [address] [id number] Director: Jluis Marc PhD, Phone: [phone] Performed By: #### L 504.0250, L503.0300, M100.2000, L350.1000, M100.2900, M100.4001, L503.0100, L3410.9992, L200.0200 ####[facility] [address] [place], [place], [id number] Culture, Anaerobic Any Sourc xuan 11-12-2024 CUAN UNK UNK No growth in 5 days. Normal [facility] Comment on above: Performed By: #### L 504.0250, L503.0300, M100.2000, L350.1000, M100.2900, M100.4001, L503.0100, L3410.9992, L200.0200 ####[facility] [address] [place], [place], [address] Body Fluid Culton 11-08-2024 BFC UNK UNK Culture exhibits no growth. Normal [facility] Comment on above: Performed By: #### L 504.0250, L503.0300, M100.2000, L350.1000, M100.2900, M100.4001, L503.0100, L3410.9992, L200.0200 ####[facility] [address] [place], [place], [address] Anaerobic cultureOrdered By: Alejandro Pritchard on 11-07-2024 Bacteria identified Anaer cx Nom (Unsp spec) No growth in 5 days. [facility] Body fluid appearance (nomin al result)Ordered By: Alejandro Pritchard on 11-07-2024 Appearance (Body fld) TURBID [facility] Body fluid color determinati onOrdered By: Alejandro Pritchard on 11-07-2024 Color (Body fld) YELLOW [facility] Body fluid cultureOrdered By : Alejandro Pritchard on 11-07-2024 Microbial culture, body fluid Culture exhibits no growth. [facility] Body fluid erythrocytes coun t (number/volume)Ordered By: Alejandro Pritchard on 11-07-2024 RBC (Body fld) [#/Vol] 4 10*3/uL [facility] Body fluid lactate dehydroge nase measurement (enzymatic activity/volume) by pyruvateOrdered By: Alejandro Pritchard on 11-07-2024 LDH Pyruvate to lactate reaction (Body fld) [Catalytic activity/Vol] 512 Units/L Not Establ. [facility] Body fluid leukocytes count (number/volume)Ordered By: Alejandro Pritchard on 11-07-2024 WBC (Body fld) [#/Vol] 7.033 10*3/uL [facility] Body fluid lymphocytes/100 l eukocytesOrdered By: Alejandro Pritchard on 11-07-2024 Lymphocytes/100 WBC (Body fld) 24 % [facility] Body fluid mononuclear cell percentageOrdered By: Alejandro Pritchard on 11-07-2024 Mononuclear cells/100 WBC (Body fld) 28.0 % [facility] Body fluid other cell count as percentage of leukocytesOrdered By: Alejandro Pritchard on 11-07-2024 Other cells/100 WBC (Body fld) 70 % [facility] Comment on above: ALL EOSINOPHILS Body fluid protein measureme nt (mass/volume)Ordered By: Alejandro Pritchard on 11-07-2024 Protein (Body fld) [Mass/Vol] 5.0 g/dL Not Establ. [facility] Body fluid total cell countO rdered By: Alejandro Pritchard on 11-07-2024 Cells Counted Total (Body fld) [#] 7.044 10^3/ul [facility] Comment on above: This is the Total Nu mber of Nucleated Cell Types in the Body Fluid. Chest Insp/Exp 2 Viewon Chest Insp/Exp 2 View Normal [facility] Cytology report of Body flui d Cyto stainOrdered By: Alejandro Pritchard on 11-07-2024 Cytology report Cyto stain Doc (Body fld) SEE PATHOLOGY REPORT [facility] Comment on above: Specimen submitted t o Anatomical Pathology Department for testing. Cytology, Body Fluid / CSFon 11-07-2024 CYTOLOGY,BF/CSF SEE PATHOLOGY REPORT Normal [facility] Comment on above: Order Comment: PLEUR AL EFFUSION-LEFT CHEST THORACENTESI Result Comment: Spec imen submitted to Anatomical Pathology Department fortesting. Performed By: #### L 504.0250, L503.0300, M100.2000, L350.1000, M100.2900, M100.4001, L503.0100, L3410.9992, L200.0200 ####[facility] [address] [place], [address] Glucose, Body Fluidon 2024 GLUC, BODY FLD 68 mg/dL Normal Not Establ. [facility] Comment on above: Order Comment: PLEUR AL EFFUSION-LEFT CHEST THORACENTESI Performed By: #### L 504.0250, L503.0300, M100.2000, L350.1000, M100.2900, M100.4001, L503.0100, L3410.9992, L200.0200 ####[facility] [address] [place], [place], [phone] Gram Stainon 11-07-2024 GS UNK UNK Centrifuged Specimen? Culture performed on centrifuged specimen Gram Stain No organisms seen Rare White Blood Cells Normal [facility] Comment on above: Performed By: #### L 504.0250, L503.0300, M100.2000, L350.1000, M100.2900, M100.4001, L503.0100, L3410.9992, L200.0200 ####[facility] [address] [place], [place], [id number] Gram stainOrdered By: Alejandro Pritchard on 11-07-2024 Microscopic observation Gram stain Nom (Unsp spec) [facility] LDH,Body Fluidon 11-07-2024 LDH,BF 512 Units/L Normal Not Establ. [facility] Comment on above: Order Comment: PLEUR AL EFFUSION-LEFT CHEST THORACENTESI Performed By: #### L 504.0250, L503.0300, M100.2000, L350.1000, M100.2900, M100.4001, L503.0100, L3410.9992, L200.0200 ####[facility] [address] [place], [place], [id number] Monocyte detectionOrdered By : Alejandro Pritchard on 11-07-2024 Monocytes/100 WBC (Bld) 6 % [facility] No Panel InformationOrdered By: Alejandro Pritchard on 11-07-2024 Body Fluid Comment 2 SEE COMMENT [facility] Comment on above: .INTERPRETATION OF R ESULTS: Differentiation of transudate and exudate fluid: TRANSUDATE EXUDATE Color- Clear,straw colored Clear,turbid,bloody,purulent RBCs- Usually none to few Often present in high numbers WBCs- Usually none to few Often present in high numbers DIFF Few lymphocytes or Lymphocytes, neutrophils, andCount- mesothelial cells. polymorphonuclear cells . SEE COMMENT [facility] Pathologist interpretation o f Body fluid testsOrdered By: Alejandro Pritchard on 11-07-2024 Pathologist interpretation (Body fld) [Interp] May follow [facility] Pathologist interpretation (Body fld) [Interp] Reviewed [facility] Comment on above: Previous reported re sult: May follow Edited by: JARED on 01/24/25:0754Reviewed by Dr. Fierro.Jyoti Fierro MD 01/24/2025 AMENDED REPORT 01/24/25 0754 PATH COMM/BF previously reported as: May follow Protein, Body Fluidon 2024 Protein [Mass/Vol] 5.0 g/dL Normal Not Establ. [facility] Comment on above: Order Comment: PLEUR AL EFFUSION-LEFT CHEST THORACENTESI Performed By: #### L 504.0250, L503.0300, M100.2000, L350.1000, M100.2900, M100.4001, L503.0100, L3410.9992, L200.0200 ####[facility] [address] [place], [place], [id number] Special Stain Group IIon Special Stain Group II Normal [facility] Comment on above: Performed By: #### P SSII ####[facility] [address] [place], [place], [id number] Specimen source identificati on of body fluidOrdered By: Alejandro Pritchard on 11-07-2024 Specimen source Nom (Body fld) THORACENTESIS [facility] Thoracentesis W USon 025 Thoracentesis W US Normal [facility] ANCAon 11-06-2024 Atypical pANCA 1:40 Abnormal Neg:<1:20 [facility] Comment on above: Result Comment: The atypical pANCA pattern has been observed in asignificant percentage of patients with ulcerative colitis,primary sclerosing cholangitis and autoimmune hepatitis. Performed By: #### L 0520.0100, L505.7010, L3100.5450, L3300.1200, L501.9520 ####[facility] [address] [place], [address] Cytoplasmic Ab <1:20 Normal Neg:<1:20 [facility] Comment on above: Performed By: #### L 4600.0100, L505.7010, L3100.5450, L3300.1200, L501.9520 ####[facility] [address] [place], [address] Perinuclear Ab. <1:20 Normal Neg:<1:20 [facility] Comment on above: Result Comment: The presence of positive fluorescence exhibiting P-ANCA orC-ANCA patterns alone is not specific for the diagnosis ofWegener's Granulomatosis (WG) or microscopic polyangiitis.Decisions about treatment should not be based solely onANCA IFA results. The [employer] ANCA Group Consensusrecommends follow up testing of positive sera with both GA-3 and MPO-ANCA enzyme immunoassays. As many as 5% serumsamples are positive only by EIA. Ref. AM J Clin Dnpkyk5020;111:507-513. Performed By: #### L 4600.0100, L505.7010, L3100.5450, L3300.1200, L501.9520 ####[facility] [address] [place], [address] CCP IgG Antibodieson 025 CCP IgG Ab. 12 units Normal 0-19 [facility] Comment on above: Result Comment: Nega tive <20 Weak positive 20 - 39 Moderate positive 40 - 59 Strong positive >59Performed at: [facility] [address] [id number] Director: Jluis Marc PhD, Phone: [phone] Performed By: #### L 4600.0100, L505.7010, L3100.5450, L3300.1200, L501.9520 ####[facility] [address] [place], [address] LEON w/ Reflex Mult Confirmon 11-04-2024 ANTI-DNA (DS)AB TNP Normal [facility] Comment on above: Performed By: #### L 4600.0100, L505.7010, L3100.5450, L3300.1200, L501.9520 ####[facility] [address] [place], [address] ANTI-SS-A TNP Normal [facility] Comment on above: Performed By: #### L 4600.0100, L505.7010, L3100.5450, L3300.1200, L501.9520 ####[facility] [address] [place], [address] ANTI-SS-B TNP Normal [facility] Comment on above: Performed By: #### L 4600.0100, L505.7010, L3100.5450, L3300.1200, L501.9520 ####[facility] [address] [place], [address] Body Fluid Cell Count+Diffon 11-03-2024 PATH COMM/BF Reviewed Normal [facility] Comment on above: Order Comment: The r eference range and other method performancespecifications have not been established for this bodyfluid. The test must be integrated into the clinicalcontext for interpretation. Result Comment: PATH OLOGIST DIFFERENTIAL COUNT:15% LYMPHOCYTES5% MONOCYTE/GYPZCHYEZPU75% EOSINOPHILS4% BASOPHILSJyoti Fierro MD 11/03/2024 AMENDED REPORT 11/03/24 0906 PATH COMM/BF previously reported as: May follow Performed By: #### L 349.9000, L200.0200 ####[facility] [address] [place], [address] Chest PA and Lateralon 11-02 Chest PA and Lateral Normal [facility] Pulmonary Visit Reporton Pulmonary Visit Report Normal [facility] Rheumatoid Factoron 11-03-19 25 RHEUMATOID FAC < 10.0 Normal <15 [facility] Comment on above: Performed By: #### L 4600.0100, L505.7010, L3100.5450, L3300.1200, L501.9520 ####[facility] [address] [place], [address] Serum DNA double strand anti body assay (units/volume)Ordered By: Alejandro Pritchard on 11-02-2024 DNA double strand Ab Qn (S) [facility] Comment on above: Test not performed Serum Scl-70 antibody assay (units/volume)Ordered By: Alejandro Pritchard on 11-02-2024 SCL-70 extractable nuclear Ab Qn (S) [facility] Comment on above: Test not performed Serum classic neutrophil cyt oplasmic antibody assay (units/volume)Ordered By: Alejandro Pritchard on 11-02-2024 Neutrophil cytoplasmic Ab.classic Qn (S) <1:20 titer Neg:<1:20 [facility] Serum or plasma cyclic citru llinated peptide IgG antibody assay (units/volume)Ordered By: Alejandro Pritchard on 11-02-2024 Cyclic citrullinated peptide IgG Qn 12 units 0-19 [facility] Comment on above: Negative <20 Weak po sitive 20 - 39 Moderate positive 40 - 59 Strong positive >59Performed at: [facility] [address] [id number] Director: Jluis Marc PhD, Phone: [phone] Serum perinuclear neutrophil cytoplasmic antibody titer by immunofluorescenceOrdered By: Alejandro Pritchard on 11-02-2024 Neutrophil cytoplasmic Ab.perinuclear IF (S) [Titer] <1:20 titer Neg:<1:20 [facility] Comment on above: The presence of posi tive fluorescence exhibiting P-ANCA orC-ANCA patterns alone is not specific for the diagnosis ofWegener's Granulomatosis (WG) or microscopic polyangiitis.Decisions about treatment should not be based solely onANCA IFA results. The [employer] ANCA [employer] Consensusrecommends follow up testing of positive sera with both GA-3 and MPO-ANCA enzyme immunoassays. As many as 5% serumsamples are positive only by EIA. Ref. AM J Clin Volveg4571;111:507-513. Serum rheumatoid factor dete ctionOrdered By: Alejandro Pritchard on 11-02-2024 Rheumatoid factor Ql (S) < 10.0 IU/mL <15 [facility] TSH DL <= 0.005 mIU/L QnOrde red By: Alejandro Pritchard on 11-02-2024 TSH Qn 4.140 uIU/mL 0.300-4.20 0 [facility] Thyroid Stim Hormone (TSH)on 11-02-2024 TSH 4.140 uIU/mL Normal 0.300-4.20 0 [facility] Comment on above: Performed By: #### L 4600.0100, L505.7010, L3100.5450, L3300.1200, L501.9520 ####[facility] [address] [place], [address] Culture, Anaerobic Any Sourc xuan 10-28-2024 CUAN No growth in 5 days. Normal [facility] Comment on above: Performed By: #### M 100.2000, M100.2900, M100.4001 ####[facility] [address] [place], [address] Culture, Blood (WB)on 2024 CUB Blood cultures x2, f rom two different sites No growth in 5 days. [facility] Comment on above: Performed By: #### L 503.6005, L300.4310, M200.1000, L100.0100, L300.3900, L500.4050, L503.7505 ####[facility] [address] [place], [address] Urine Cultureon 10-25-2024 URC Below infection leve l. Mixed Gram Positive Organisms [place] Count 1000-10,000 MIXC Mixed contaminants. Submit a new specimen if indicated. [facility] Comment on above: Performed By: #### L 400.0001, M100.2200 ####[facility] [address] [place], [address] AFB Stain AND Cytologyon ACID FAST STAIN SEE PATHOLOGY REPORT Normal [facility] Comment on above: Result Comment: Spec imen submitted to Anatomical Pathology Department fortesting. Performed By: #### L 349.9000, L200.0200 ####[facility] [address] [place], [address] CYTOLOGY,BF/CSF SEE PATHOLOGY REPORT Normal [facility] Comment on above: Result Comment: Spec imen submitted to Anatomical Pathology Department fortesting. Performed By: #### L 349.9000, L200.0200 ####[facility] [address] [place], [address] Absolute lymphocyte countOrd ered By: Davis Dougherty on 10-24-2024 Lymphocytes Auto (Unsp spec) [#/Vol] 1.05 10*3/uL 0.83-4.51 [facility] Absolute neutrophil countOrd ered By: Davis Dougherty on 10-24-2024 Neutrophils (Bld) [#/Vol] 8.9 10*3/uL High 2.0-7.7 [facility] Acid fast bacillus (AFB) cul tureOrdered By: Davis Douhgerty on 10-24-2024 Mycobacterium sp identified Org specific cx Nom (Unsp spec) [facility] Anion gap in Serum or Plasma Ordered By: Davis Dougherty on 10-24-2024 Anion gap [Moles/Vol] 9 mmol/L 5-15 [facility] Automated lymphocyte count a s percentage of total leukocytesOrdered By: Davis Dougherty on 10-24-2024 Lymphocytes/100 WBC Auto (Unsp spec) 8.9 % Low 19-41 [facility] BUN/creatinine ratioOrdered By: Davis Dougherty on 10-24-2024 Urea nitrogen/Creatinine [Mass ratio] 18.8 mg/mg 03-26 [facility] Basic Metabolic Profile (BMP )on 10-24-2024 BUN/CRE 18.8 RATIO Normal 03-26 [facility] Comment on above: Performed By: #### L 500.2500 ####[facility] [address] [place], [address] Calcium [Mass/Vol] 9.0 mg/dL Normal 7.6-11.0 [facility] Comment on above: Performed By: #### L 500.2500 ####[facility] [address] [place], [address] Chloride [Moles/Vol] 95 mmol/L Low 98-108 [facility] Comment on above: Performed By: #### L 500.2500 ####[facility] [address] [place], [address] CO2 [Moles/Vol] 32.7 mmol/L High 21.0-32.0 [facility] Comment on above: Performed By: #### L 500.2500 ####[facility] [address] [place], [address] Creatinine [Mass/Vol] 0.56 mg/dL Low 0.70-1.20 [facility] Comment on above: Performed By: #### L 500.2500 ####[facility] [address] [place], [address] ECRCL 95.30 ml/min Normal 50-250 [facility] Comment on above: Performed By: #### L 500.2500 ####[facility] [address] [place], [address] GAP 9 Normal 5-15 [facility] Comment on above: Performed By: #### L 500.2500 ####[facility] [address] [place], [address] GFR/1.73 sq M.predicted among non-blacks MDRD (S/P/Bld) [Vol rate/Area] 102 mL/min/{1.73_m2} Normal >60 [facility] Comment on above: Result Comment: mL/m in/1.73m2 CKD-EPI Creatinine Equation (2020) Performed By: #### L 500.2500 ####[facility] [address] [place], [address] Glucose [Mass/Vol] 107 mg/dL High 70-99 [facility] Comment on above: Performed By: #### L 500.2500 ####[facility] [address] [place], [address] Potassium [Moles/Vol] 3.5 mmol/L Normal 3.3-5.1 [facility] Comment on above: Performed By: #### L 500.2500 ####[facility] [address] [place], [address] Sodium [Moles/Vol] 137 mmol/L Normal 133-145 [facility] Comment on above: Performed By: #### L 500.2500 ####[facility] [address] [place], [address] Urea nitrogen [Mass/Vol] 11 mg/dL Normal 4-19 [facility] Comment on above: Performed By: #### L 500.2500 ####[facility] [address] [place], [address] Basophil percentageOrdered B y: Davis Dougherty on 10-24-2024 Basophils/100 WBC (Bld) 0.6 % 0-1 [facility] Body Fluid Culton 10-24-2024 BFC Culture exhibits no growth. Normal [facility] Comment on above: Performed By: #### M 100.2000, M100.2900, M100.4001 ####[facility] [address] [place], [address] CBC W/Diff, Automatedon - Absolute Lymph 1.05 X10 3/uL Normal 0.83-4.51 [facility] Comment on above: Performed By: #### L 100.0100 ####[facility] [address] [place], [address] Absolute Neut 8.9 X10 3/uL High 2.0-7.7 [facility] Comment on above: Performed By: #### L 100.0100 ####[facility] [address] [place], [address] Basophils/100 WBC (Bld) 0.6 % Normal 0-1 [facility] Comment on above: Performed By: #### L 100.0100 ####[facility] [address] [place], [address] Eosinophils/100 WBC (Bld) 4.7 % Normal 0-5 [facility] Comment on above: Performed By: #### L 100.0100 ####[facility] [address] [place], [address] Erythrocyte distribution width (RBC) [Ratio] 13.5 % Normal 11.6-14.6 [facility] Comment on above: Performed By: #### L 100.0100 ####[facility] [address] [place], [address] Hematocrit (Bld) [Volume fraction] 39.5 % Low 40-54 [facility] Comment on above: Performed By: #### L 100.0100 ####[facility] [address] [place], [address] Hemoglobin (Bld) [Mass/Vol] 12.6 g/dL Low 13.0-16.5 [facility] Comment on above: Performed By: #### L 100.0100 ####[facility] [address] [place], [address] IG% 0.400 Normal 0.0-0.9 [facility] Comment on above: Result Comment: IG% - Immature Granulocytes (promyelocytes, myelocytes andmetamyelocytes) > 1% indicates that a LEFT SHIFT is Present. Performed By: #### L 100.0100 ####[facility] [address] [place], [address] Lymphocytes/100 WBC (Bld) 8.9 % Low 19-41 [facility] Comment on above: Performed By: #### L 100.0100 ####[facility] [address] [place], [address] MCH (RBC) [Entitic mass] 28.6 pg Normal 27.0-32.0 [facility] Comment on above: Performed By: #### L 100.0100 ####[facility] [address] [place], [address] MCHC (RBC) [Mass/Vol] 31.9 g/dL Low 32-36 [facility] Comment on above: Performed By: #### L 100.0100 ####[facility] [address] [place], [address] MCV (RBC) [Entitic vol] 89.8 fL Normal 80-94 [facility] Comment on above: Performed By: #### L 100.0100 ####[facility] [address] [place], [address] Monocytes/100 WBC (Bld) 10.1 % High 0-10 [facility] Comment on above: Performed By: #### L 100.0100 ####[facility] [address] [place], [address] Neutrophils/100 WBC (Bld) 75.3 % High 47-70 [facility] Comment on above: Performed By: #### L 100.0100 ####[facility] [address] [place], [address] Nucleated RBC (Bld) [#/Vol] 0 10*3/uL Normal 0-5 [facility] Comment on above: Performed By: #### L 100.0100 ####[facility] [address], [address] Platelet mean volume (Bld) [Entitic vol] 9.7 fL Normal 6.2-12.0 [facility] Comment on above: Performed By: #### L 100.0100 ####[facility] [address] [place], [address] Platelets (Bld) [#/Vol] 246 10*3/uL Normal 150-450 [facility] Comment on above: Performed By: #### L 100.0100 ####[facility] [address] [place], [address] RBC (Bld) [#/Vol] 4.40 10*6/uL Low 4.6-6.2 [facility] Comment on above: Performed By: #### L 100.0100 ####[facility] [address] [place], [address] RDW SD 44.6 fl High 35.1-43.9 [facility] Comment on above: Performed By: #### L 100.0100 ####[facility] [address] [place], [address] WBC (Bld) [#/Vol] 11.8 10*3/uL High 4.4-11.0 [facility] Comment on above: Performed By: #### L 100.0100 ####[facility] [address] [place], [address] Carbon dioxide, total [Moles /volume] in Central venous bloodOrdered By: Davis Dougherty on 10-24-2024 CO2 [Moles/Vol] 32.7 mmol/L High 21.0-32.0 [facility] Chest Insp/Exp 2 Viewon 10-06 Chest Insp/Exp 2 View Normal [facility] Chloride assayOrdered By: Gwen Dougherty on 10-24-2024 Chloride [Moles/Vol] 95 mmol/L Low 98-108 [facility] Discharge Instructionon 10-06 Discharge Instruction Normal [facility] Electrocardiogram reportOrde red By: Ankit Bliss on 10-24-2024 EKG study [facility] [address] [place] [address] 12 Lead EKG 10/23/24 1037 MR#: [id number] Acct: [id number] Name: EDUARD RUSSELL Rep #:[id number] : 1945 79 From: Ankit Bliss MD Attending Dr: Dr. Davis Dougherty DO Status: ADM IN Ordering Dr: Cristofer Miranda DO Date: Location: [facility]3 Sex: M C Admitted: 10/23/24 Test Reason : SOB Blood Pressure : */* mmHG Vent. Rate : 95 BPM Atrial Rate : 95 BPM P-R Int : 220 ms QRS Dur : 96 ms QT Int : 358 ms P-R-T Axes : 27 90 29 degrees QTcB Int : 449 ms Sinus rhythm with 1st degree A-V block Rightward axis Borderline ECG Confirmed by MARK RODRIGUEZ, ANKIT ([id number]), story editor VILLA GÓMEZ ([id number]) on 51:25:06 PM Referred By: Confirmed By: ANKIT BLISS MD 10/24/24 1325 Date _ Ankit Bliss MD CC: Dr. Thiago Morgan MD; Dr. Davis Dougherty DO; Dr. Cristofer Miranda DO ~ Signed [facility] Work Phone: [phone] Eosinophil percentageOrdered By: Davis Dougherty on 10-24-2024 Eosinophils/100 WBC (Bld) 4.7 % 0-5 [facility] Erythrocyte distribution wid th ratioOrdered By: Davis Dougherty on 10-24-2024 Erythrocyte distribution width (RBC) [Ratio] 13.5 % 11.6-14.6 [facility] Erythrocyte distribution wid th standard deviationOrdered By: Davis Dougherty on 10-24-2024 Erythrocyte distribution width (RBC) [Ratio] 44.6 fl High 35.1-43.9 [facility] Glomerular filtration rate ( GFR) estimation/1.73 sq m using serum, plasma, or whole bOrdered By: Davis Dougherty on 10-24-2024 GFR/1.73 sq M.predicted among non-blacks MDRD (S/P/Bld) [Vol rate/Area] 102 mL/min/{1.73_m2} >60 [facility] Comment on above: mL/min/1.73m2 CKD-EP I Creatinine Equation (2020) Hematocrit Auto (Bld) [Volum e fraction]Ordered By: Davis Dougherty on 10-24-2024 Hematocrit (Bld) [Volume fraction] 39.5 % Low 40-54 [facility] Hemoglobin measurementOrdere d By: Davis Dougherty on 10-24-2024 Hemoglobin (Bld) [Mass/Vol] 12.6 g/dL Low 13.0-16.5 [facility] Immature granulocytes/100 WB C Auto (Bld)Ordered By: Davis Dougherty on 10-24-2024 Immature granulocytes/100 WBC (Bld) 0.400 % 0.0-0.9 [facility] Comment on above: IG% - Immature Granu locytes (promyelocytes, myelocytes and metamyelocytes) > 1% indicates that a LEFT SHIFT is Present. MCV (mean corpuscular volume ) determinationOrdered By: Davis Dougherty on 10-24-2024 MCV (RBC) [Entitic vol] 89.8 fL 80-94 [facility] Mean corpuscular hemoglobin (MCH) determinationOrdered By: Davis Dougherty on 10-24-2024 MCH (RBC) [Entitic mass] 28.6 pg 27.0-32.0 [facility] Mean corpuscular hemoglobin concentration (MCHC) determinationOrdered By: Davis Dougherty on 10-24-2024 MCHC (RBC) [Mass/Vol] 31.9 g/dL Low 32-36 [facility] Mean platelet volume determi nationOrdered By: Davis Dougherty on 10-24-2024 Platelet mean volume (Bld) [Entitic vol] 9.7 fL 6.2-12.0 [facility] Monocyte percentageOrdered B y: Davis Dougherty on 10-24-2024 Monocytes/100 WBC (Bld) 10.1 % High 0-10 [facility] Neutrophil percentageOrdered By: Davis Dougherty on 10-24-2024 Neutrophils/100 WBC (Bld) 75.3 % High 47-70 [facility] Nucleated red blood cell per centageOrdered By: Davis Dougherty on 10-24-2024 Nucleated RBC/100 WBC (Bld) [Ratio] 0 % 0-5 [facility] Platelet countOrdered By: Gwen Dougherty on 10-24-2024 Platelets (Bld) [#/Vol] 246 10*3/uL 150-450 [facility] Potassium measurement (mass/ volume)Ordered By: Davis Dougherty on 10-24-2024 Potassium (Unsp spec) [Mass/Vol] 3.5 mmol/L 3.3-5.1 [facility] RBC Auto (Bld) [#/Vol]Ordere d By: Davis Dougherty on 10-24-2024 RBC (Bld) [#/Vol] 4.40 10*6/uL Low 4.6-6.2 [facility] Serum creatinine measurement (mass/volume)Ordered By: Davis Dougherty on 10-24-2024 Creatinine [Mass/Vol] 0.56 mg/dL Low 0.70-1.20 [facility] Serum glucose measurement (m ass/volume)Ordered By: Davis Dougherty on 10-24-2024 Glucose [Mass/Vol] 107 mg/dL High 70-99 [facility] Serum or plasma calcium anitra urement (mass/volume)Ordered By: Davis Dougherty on 10-24-2024 Calcium [Mass/Vol] 9.0 mg/dL 7.6-11.0 [facility] Serum or plasma urea nitroge n measurement (mass/volume)Ordered By: Davis Dougherty on 10-24-2024 Urea nitrogen [Mass/Vol] 11 mg/dL 4-19 [facility] Sodium levelOrdered By: Davis Dougherty on 10-24-2024 Sodium [Moles/Vol] 137 mmol/L 133-145 [facility] Thoracentesis W USon 025 Thoracentesis W US Normal [facility] White blood cell (WBC) count Ordered By: Davis Dougherty on 10-24-2024 WBC (Bld) [#/Vol] 11.8 10*3/uL High 4.4-11.0 [facility] 12 Lead EKGon 10-23-2024 12 Lead EKG Normal [facility] Absolute lymphocyte countOrd ered By: Cristofer Miranda on 10-23-2024 Lymphocytes Auto (Unsp spec) [#/Vol] 1.13 10*3/uL 0.83-4.51 [facility] Absolute neutrophil countOrd ered By: Cristofer Miranda on 10-23-2024 Neutrophils (Bld) [#/Vol] 7.7 10*3/uL 2.0-7.7 [facility] Acid fast bacillus (AFB) sta inOrdered By: Davis Dougherty on 10-23-2024 Microscopic observation Acid fast stain Nom (Unsp spec) SEE PATHOLOGY REPORT [facility] Comment on above: Specimen submitted t o Anatomical Pathology Department for testing. Activated partial thrombopla stin time (aPTT) in platelet poor plasma by coagulation aOrdered By: Cristofer Miranda on 10-23-2024 aPTT Coag (PPP) [Time] 31.0 s 24.1-36.2 [facility] Anaerobic cultureOrdered By: Davis Dougherty on 10-23-2024 Bacteria identified Anaer cx Nom (Unsp spec) No growth in 5 days. [facility] Anion gap in Serum or Plasma Ordered By: Cristofer Miranda on 10-23-2024 Anion gap [Moles/Vol] 9 mmol/L 5-15 [facility] Automated lymphocyte count a s percentage of total leukocytesOrdered By: Cristofer Miranda on 10-23-2024 Lymphocytes/100 WBC Auto (Unsp spec) 10.7 % Low 19-41 [facility] BUN/creatinine ratioOrdered By: Cristofer Miranda on 10-23-2024 Urea nitrogen/Creatinine [Mass ratio] 17.4 mg/mg 10-20 [facility] Basophil percentageOrdered B y: Cristofer Miranda on 10-23-2024 Basophils/100 WBC (Bld) 0.6 % 0-1 [facility] Bilirubin Test strip Ql (U)O rdered By: Cristofer Miranda on 10-23-2024 Bilirubin Ql (U) Negative Negative [facility] Bilirubin, totalOrdered By: Cristofer Miranda on 10-23-2024 Bilirubin [Mass/Vol] 0.53 mg/dL 0.00-1.30 [facility] Blood cultureOrdered By: Omi Miranda on 10-23-2024 Bacteria identified Cx Nom (Bld) No growth in 5 days. [facility] Body fluid appearance (nomin al result)Ordered By: Davis Dougherty on 10-23-2024 Appearance (Body fld) TURBID [facility] Body fluid color determinati onOrdered By: Davis Dougherty on 10-23-2024 Color (Body fld) YELLOW [facility] Body fluid cultureOrdered By : Davis Dougherty on 10-23-2024 Microbial culture, body fluid Culture exhibits no growth. [facility] Body fluid erythrocytes coun t (number/volume)Ordered By: Davis Dougherty on 10-23-2024 RBC (Body fld) [#/Vol] 4 10*3/uL [facility] Body fluid lactate dehydroge nase measurement (enzymatic activity/volume) by pyruvateOrdered By: Davis Dougherty on 10-23-2024 LDH Pyruvate to lactate reaction (Body fld) [Catalytic activity/Vol] 308 Units/L Not Establ. [facility] Body fluid leukocytes count (number/volume)Ordered By: Davis Dougherty on 10-23-2024 WBC (Body fld) [#/Vol] 3.275 10*3/uL [facility] Body fluid lymphocytes/100 l eukocytesOrdered By: Davis Dougherty on 10-23-2024 Lymphocytes/100 WBC (Body fld) 15 % [facility] Body fluid macrophage countO rdered By: Davis Dougherty on 10-23-2024 Macrophages (Body fld) [#/Vol] 8 % [facility] Body fluid mononuclear cell percentageOrdered By: Davis Dougherty on 10-23-2024 Mononuclear cells/100 WBC (Body fld) 26.3 % [facility] Body fluid other cell count as percentage of leukocytesOrdered By: Davis Dougherty on 10-23-2024 Other cells/100 WBC (Body fld) 2 % [facility] Body fluid protein measureme nt (mass/volume)Ordered By: Davis Dougherty on 10-23-2024 Protein (Body fld) [Mass/Vol] 5.2 g/dL Not Establ. [facility] Body fluid segmented neutrop hils count (number/volume)Ordered By: Davis Dougherty on 10-23-2024 Segmented neutrophils (Body fld) [#/Vol] 62 % [facility] Body fluid total cell countO rdered By: Davis Dougherty on 10-23-2024 Cells Counted Total (Body fld) [#] 3.305 10^3/ul [facility] Comment on above: This is the Total Nu mber of Nucleated Cell Types in the Body Fluid. CBC W/Diff, Automatedon 10-05 Absolute Lymph 1.13 X10 3/uL Normal 0.83-4.51 [facility] Comment on above: Performed By: #### L 503.6005, L300.4310, M200.1000, L100.0100, L300.3900, L500.4050, L503.7505 ####[facility] [address] [place], [address] Absolute Neut 7.7 X10 3/uL Normal 2.0-7.7 [facility] Comment on above: Performed By: #### L 503.6005, L300.4310, M200.1000, L100.0100, L300.3900, L500.4050, L503.7505 ####[facility] [address] [place], [address] Basophils/100 WBC (Bld) 0.6 % Normal 0-1 [facility] Comment on above: Performed By: #### L 503.6005, L300.4310, M200.1000, L100.0100, L300.3900, L500.4050, L503.7505 ####[facility] [address] [place], [address] Eosinophils/100 WBC (Bld) 6.0 % High 0-5 [facility] Comment on above: Performed By: #### L 503.6005, L300.4310, M200.1000, L100.0100, L300.3900, L500.4050, L503.7505 ####[facility] [address] [place], [address] Erythrocyte distribution width (RBC) [Ratio] 13.6 % Normal 11.6-14.6 [facility] Comment on above: Performed By: #### L 503.6005, L300.4310, M200.1000, L100.0100, L300.3900, L500.4050, L503.7505 ####[facility] [address] [place], [address] Hematocrit (Bld) [Volume fraction] 42.9 % Normal 40-54 [facility] Comment on above: Performed By: #### L 503.6005, L300.4310, M200.1000, L100.0100, L300.3900, L500.4050, L503.7505 ####[facility] [address] [place], [address] Hemoglobin (Bld) [Mass/Vol] 13.4 g/dL Normal 13.0-16.5 [facility] Comment on above: Performed By: #### L 503.6005, L300.4310, M200.1000, L100.0100, L300.3900, L500.4050, L503.7505 ####[facility] [address] [place], [address] IG% 0.400 Normal 0.0-0.9 [facility] Comment on above: Result Comment: IG% - Immature Granulocytes (promyelocytes, myelocytes andmetamyelocytes) > 1% indicates that a LEFT SHIFT is Present. Performed By: #### L 503.6005, L300.4310, M200.1000, L100.0100, L300.3900, L500.4050, L503.7505 ####[facility] [address] [place], [address] Lymphocytes/100 WBC (Bld) 10.7 % Low 19-41 [facility] Comment on above: Performed By: #### L 503.6005, L300.4310, M200.1000, L100.0100, L300.3900, L500.4050, L503.7505 ####[facility] [address] [place], [address] MCH (RBC) [Entitic mass] 28.5 pg Normal 27.0-32.0 [facility] Comment on above: Performed By: #### L 503.6005, L300.4310, M200.1000, L100.0100, L300.3900, L500.4050, L503.7505 ####[facility] [address] [place], [address] MCHC (RBC) [Mass/Vol] 31.2 g/dL Low 32-36 [facility] Comment on above: Performed By: #### L 503.6005, L300.4310, M200.1000, L100.0100, L300.3900, L500.4050, L503.7505 ####[facility] [address] [place], [address] MCV (RBC) [Entitic vol] 91.1 fL Normal 80-94 [facility] Comment on above: Performed By: #### L 503.6005, L300.4310, M200.1000, L100.0100, L300.3900, L500.4050, L503.7505 ####[facility] [address] [place], [address] Monocytes/100 WBC (Bld) 9.9 % Normal 0-10 [facility] Comment on above: Performed By: #### L 503.6005, L300.4310, M200.1000, L100.0100, L300.3900, L500.4050, L503.7505 ####[facility] [address], [address] Neutrophils/100 WBC (Bld) 72.4 % High 47-70 [facility] Comment on above: Performed By: #### L 503.6005, L300.4310, M200.1000, L100.0100, L300.3900, L500.4050, L503.7505 ####[facility] [address] [place], [address] Nucleated RBC (Bld) [#/Vol] 0 10*3/uL Normal 0-5 [facility] Comment on above: Performed By: #### L 503.6005, L300.4310, M200.1000, L100.0100, L300.3900, L500.4050, L503.7505 ####[facility] [address] [place], [address] Platelet mean volume (Bld) [Entitic vol] 9.7 fL Normal 6.2-12.0 [facility] Comment on above: Performed By: #### L 503.6005, L300.4310, M200.1000, L100.0100, L300.3900, L500.4050, L503.7505 ####[facility] [address] [place], [address] Platelets (Bld) [#/Vol] 265 10*3/uL Normal 150-450 [facility] Comment on above: Performed By: #### L 503.6005, L300.4310, M200.1000, L100.0100, L300.3900, L500.4050, L503.7505 ####[facility] [address] [place], [address] RBC (Bld) [#/Vol] 4.71 10*6/uL Normal 4.6-6.2 [facility] Comment on above: Performed By: #### L 503.6005, L300.4310, M200.1000, L100.0100, L300.3900, L500.4050, L503.7505 ####[facility] [address] [place], [address] RDW SD 45.9 fl High 35.1-43.9 [facility] Comment on above: Performed By: #### L 503.6005, L300.4310, M200.1000, L100.0100, L300.3900, L500.4050, L503.7505 ####[facility] [address] [place], [place], [address] WBC (Bld) [#/Vol] 10.6 10*3/uL Normal 4.4-11.0 [facility] Comment on above: Performed By: #### L 503.6005, L300.4310, M200.1000, L100.0100, L300.3900, L500.4050, L503.7505 ####[facility] [address] [place], [place], [address] CTA Chest W/WO Contraston CTA Chest W/WO Contrast Normal [facility] Carbon dioxide, total [Moles /volume] in Central venous bloodOrdered By: Cristofer Miranda on 10-23-2024 CO2 [Moles/Vol] 33.9 mmol/L High 21.0-32.0 [facility] Chest Insp/Exp 2 Viewon 10-05 Chest Insp/Exp 2 View Normal [facility] Chloride assayOrdered By: Duncan Miranda on 10-23-2024 Chloride [Moles/Vol] 93 mmol/L Low 98-108 [facility] Comprehensive Metabolic Prof ilon 10-23-2024 Albumin [Mass/Vol] 3.8 g/dL Normal 3.4-4.8 [facility] Comment on above: Performed By: #### L 503.6005, L300.4310, M200.1000, L100.0100, L300.3900, L500.4050, L503.7505 ####[facility] [address] [place], [address] Albumin/Globulin [Mass ratio] 0.9 {ratio} Normal 0.9-2.4 [facility] Comment on above: Performed By: #### L 503.6005, L300.4310, M200.1000, L100.0100, L300.3900, L500.4050, L503.7505 ####[facility] [address] [place], [address] ALK PHOS 81 U/L Normal 40-129 [facility] Comment on above: Performed By: #### L 503.6005, L300.4310, M200.1000, L100.0100, L300.3900, L500.4050, L503.7505 ####[facility] [address] [place], [place], [id number] ALT [Catalytic activity/Vol] 8 U/L Normal <=46 [facility] Comment on above: Performed By: #### L 503.6005, L300.4310, M200.1000, L100.0100, L300.3900, L500.4050, L503.7505 ####[facility] [address] [place], [address] AST [Catalytic activity/Vol] 16 U/L Normal <=37 [facility] Comment on above: Performed By: #### L 503.6005, L300.4310, M200.1000, L100.0100, L300.3900, L500.4050, L503.7505 ####[facility] [address] [place], [address] Bilirubin [Mass/Vol] 0.53 mg/dL Normal 0.00-1.30 [facility] Comment on above: Performed By: #### L 503.6005, L300.4310, M200.1000, L100.0100, L300.3900, L500.4050, L503.7505 ####[facility] [address] [place], [address] BUN/CRE 17.4 RATIO Normal 10-20 [facility] Comment on above: Performed By: #### L 503.6005, L300.4310, M200.1000, L100.0100, L300.3900, L500.4050, L503.7505 ####[facility] [address] [place], [address] Calcium [Mass/Vol] 9.5 mg/dL Normal 7.6-11.0 [facility] Comment on above: Performed By: #### L 503.6005, L300.4310, M200.1000, L100.0100, L300.3900, L500.4050, L503.7505 ####[facility] [address] [place], [address] Chloride [Moles/Vol] 93 mmol/L Low 98-108 [facility] Comment on above: Performed By: #### L 503.6005, L300.4310, M200.1000, L100.0100, L300.3900, L500.4050, L503.7505 ####[facility] [address] [place], [address] CO2 [Moles/Vol] 33.9 mmol/L High 21.0-32.0 [facility] Comment on above: Performed By: #### L 503.6005, L300.4310, M200.1000, L100.0100, L300.3900, L500.4050, L503.7505 ####[facility] [address] [place], [address] Creatinine [Mass/Vol] 0.61 mg/dL Low 0.70-1.20 [facility] Comment on above: Performed By: #### L 503.6005, L300.4310, M200.1000, L100.0100, L300.3900, L500.4050, L503.7505 ####[facility] [address] [place], [place], [phone] ECRCL 97.14 ml/min Normal 50-250 [facility] Comment on above: Performed By: #### L 503.6005, L300.4310, M200.1000, L100.0100, L300.3900, L500.4050, L503.7505 ####[facility] [address] [place], [place], [phone] GAP 9 Normal 5-15 [facility] Comment on above: Performed By: #### L 503.6005, L300.4310, M200.1000, L100.0100, L300.3900, L500.4050, L503.7505 ####[facility] [address] [place], [place], [phone] GFR/1.73 sq M.predicted among non-blacks MDRD (S/P/Bld) [Vol rate/Area] 99 mL/min/{1.73_m2} Normal >60 [facility] Comment on above: Result Comment: mL/m in/1.73m2 CKD-EPI Creatinine Equation (2020) Performed By: #### L 503.6005, L300.4310, M200.1000, L100.0100, L300.3900, L500.4050, L503.7505 ####[facility] [address] [place], [place], [phone] Globulin (S) [Mass/Vol] 4.0 g/dL Normal 2.2-4.2 [facility] Comment on above: Performed By: #### L 503.6005, L300.4310, M200.1000, L100.0100, L300.3900, L500.4050, L503.7505 ####[facility] [address] [place], [address] Glucose [Mass/Vol] 123 mg/dL High 70-99 [facility] Comment on above: Performed By: #### L 503.6005, L300.4310, M200.1000, L100.0100, L300.3900, L500.4050, L503.7505 ####[facility] [address] [place], [address] Potassium [Moles/Vol] 4.0 mmol/L Normal 3.3-5.1 [facility] Comment on above: Performed By: #### L 503.6005, L300.4310, M200.1000, L100.0100, L300.3900, L500.4050, L503.7505 ####[facility] [address] [place], [address] Sodium [Moles/Vol] 136 mmol/L Normal 133-145 [facility] Comment on above: Performed By: #### L 503.6005, L300.4310, M200.1000, L100.0100, L300.3900, L500.4050, L503.7505 ####[facility] [address] [place], [address] T PROT 7.9 g/dL Normal 5.9-8.4 [facility] Comment on above: Performed By: #### L 503.6005, L300.4310, M200.1000, L100.0100, L300.3900, L500.4050, L503.7505 ####[facility] [address] [place], [address] Urea nitrogen [Mass/Vol] 11 mg/dL Normal 4-19 [facility] Comment on above: Performed By: #### L 503.6005, L300.4310, M200.1000, L100.0100, L300.3900, L500.4050, L503.7505 ####[facility] [address] [place], [place], [phone] Cytology report of Body flui d Cyto stainOrdered By: Davis Dougherty on 10-23-2024 Cytology report Cyto stain Doc (Body fld) SEE PATHOLOGY REPORT [facility] Comment on above: Specimen submitted t o Anatomical Pathology Department for testing. Emergency Department Summary on 10-23-2024 Emergency Department Summary Normal [facility] Eosinophil percentageOrdered By: Cristofer Miranda on 10-23-2024 Eosinophils/100 WBC (Bld) 6.0 % High 0-5 [facility] Erythrocyte distribution wid th ratioOrdered By: Cristoferraymundo Miranda on 10-23-2024 Erythrocyte distribution width (RBC) [Ratio] 13.6 % 11.6-14.6 [facility] Erythrocyte distribution wid th standard deviationOrdered By: Cristofer Miranda on 10-23-2024 Erythrocyte distribution width (RBC) [Ratio] 45.9 fl High 35.1-43.9 [facility] Glomerular filtration rate ( GFR) estimation/1.73 sq m using serum, plasma, or whole bOrdered By: Cristofer Miranda on 10-23-2024 GFR/1.73 sq M.predicted among non-blacks MDRD (S/P/Bld) [Vol rate/Area] 99 mL/min/{1.73_m2} >60 [facility] Comment on above: mL/min/1.73m2 CKD-EP I Creatinine Equation (2020) Glucose, Body Fluidon 2024 GLUC, BODY FLD 107 mg/dL Normal Not Establ. [facility] Comment on above: Performed By: #### L 504.0250, L503.0300, L503.0100 ####[facility] [address] [place], [place], [phone] Gram Stainon 10-23-2024 GS Centrifuged Specimen ? Culture performed on centrifuged specimen Gram Stain 3+ White Blood Cells No organisms seen Normal [facility] Comment on above: Performed By: #### M 100.2000, M100.2900, M100.4001 ####[facility] [address] [place], [place], [phone] Gram stainOrdered By: Davis escalante on 10-23-2024 Microscopic observation Gram stain Nom (Unsp spec) [facility] H AND P Exam - Hospitaliston 10-23-2024 H&P Exam - Hospitalist Normal [facility] Hematocrit Auto (Bld) [Volum e fraction]Ordered By: Cristofer Miranda on 10-23-2024 Hematocrit (Bld) [Volume fraction] 42.9 % 40-54 [facility] Hemoglobin measurementOrdere d By: Cristofer Miranda on 10-23-2024 Hemoglobin (Bld) [Mass/Vol] 13.4 g/dL 13.0-16.5 [facility] Immature granulocytes/100 WB C Auto (Bld)Ordered By: Cristofer Miranda on 10-23-2024 Immature granulocytes/100 WBC (Bld) 0.400 % 0.0-0.9 [facility] Comment on above: IG% - Immature Granu locytes (promyelocytes, myelocytes and metamyelocytes) > 1% indicates that a LEFT SHIFT is Present. Immunohistochemical Stainson 10-23-2024 Immunohistochemical Stains Normal [facility] Comment on above: Performed By: #### P IMHI ####[facility] [address] [place], [place], [address] Influenza virus A and B and SARS-CoV-2 (COVID-19) and Respiratory syncytial virus RNAOrdered By: Cristofer Miranda on 10-23-2024 SARS-CoV-2 (COVID-19) RNA LEIGHTON+probe Ql (Unsp spec) [facility] International normalized rat io (INR) calculationOrdered By: Cristofer Miranda on 10-23-2024 INR Coag (Bld) [Relative time] 1.0 {INR} [facility] Ketones Test strip Ql (U)Ord ered By: Cristofer Miranda on 10-23-2024 Ketones Ql (U) Negative Negative [facility] L499.0042on 10-23-2024 Trop T High Sen 7 ng/L Normal <=22 [facility] Comment on above: Performed By: #### L 499.0042 ####[facility] [address] [place], [address] L499.0043on 10-23-2024 Trop T High Sen Normal <=22 [facility] Comment on above: Result Comment: Radha sanders via OM: Ordered Performed By: #### L 499.0043 ####[facility] [address] [place], [address] L501.4021on 10-23-2024 Trop T High Sen 9 ng/L Normal <=22 [facility] Comment on above: Performed By: #### L 501.4021 ####[facility] [address] [place], [address] L503.7505on 10-23-2024 Natriuretic peptide B (Bld) [Mass/Vol] 86 pg/mL Normal <=1800 [facility] Comment on above: Result Comment: Hear t Failure Unlikely: < 300 pg/mLHeart Failure Likely< 50 Years: > 450 pg/mL50-75 Years: > 900 pg/mL>75 Years: > 1800 pg/mL Performed By: #### L 503.6005, L300.4310, M200.1000, L100.0100, L300.3900, L500.4050, L503.7505 ####[facility] [address] [place], [address] LDHon 10-23-2024 LDH 219 U/L Normal 87-241 [facility] Comment on above: Performed By: #### L 504.2610 ####[facility] [address] [place], [address] LDH,Body Fluidon 10-23-2024 LDH,BF 308 Units/L Normal Not Establ. [facility] Comment on above: Performed By: #### L 504.0250, L503.0300, L503.0100 ####[facility] [address] [place], [place], [address] Laboratory - Chemistry and C hemistry - challengeOrdered By: Cristofer Miranda on 10-23-2024 AST [Catalytic activity/Vol] 16 U/L <38 [facility] Lactate dehydrogenase (LDH) measurementOrdered By: Davis Dougherty on 10-23-2024 LDH [Catalytic activity/Vol] 219 U/L 87-241 [facility] Lactic Acidon 10-23-2024 Lactate [Moles/Vol] mmol/L Normal 0.0-2.0 [facility] Comment on above: Order Comment: Y Performed By: #### L 503.6005, L300.4310, M200.1000, L100.0100, L300.3900, L500.4050, L503.7505 ####[facility] [address] [place], [place], [phone] Lactic acid measurementOrder ed By: Cristofer Miranda on 10-23-2024 Lactate [Moles/Vol] mmol/L 0.0-2.0 [facility] M100.678on 10-23-2024 M100.678 SARS-CoV-2 (COVID 19 ) Negative INFLUENZA A Negative INFLUENZA B Negative RSV PCR Negative Normal [facility] Comment on above: Performed By: #### M 100.678 ####[facility] [address] [place], [place], [address] MCV (mean corpuscular volume ) determinationOrdered By: Cristofer Miranda on 10-23-2024 MCV (RBC) [Entitic vol] 91.1 fL 80-94 [facility] Mean corpuscular hemoglobin (MCH) determinationOrdered By: Cristofer Miranda on 10-23-2024 MCH (RBC) [Entitic mass] 28.5 pg 27.0-32.0 [facility] Mean corpuscular hemoglobin concentration (MCHC) determinationOrdered By: Cristofer Miranda on 10-23-2024 MCHC (RBC) [Mass/Vol] 31.2 g/dL Low 32-36 [facility] Mean platelet volume determi nationOrdered By: Cristofer Miranda on 10-23-2024 Platelet mean volume (Bld) [Entitic vol] 9.7 fL 6.2-12.0 [facility] Microscopic analysis of urin e for red blood cells (RBC)Ordered By: Cristofer Miranda on 10-23-2024 Microscopic analysis of urine for red blood cells (RBC) 0 SEEN /hpf 0-5 [facility] Monocyte detectionOrdered By : Davis Dougherty on 10-23-2024 Monocytes/100 WBC (Bld) 13 % [facility] Monocyte percentageOrdered B y: Cristofer Miranda on 10-23-2024 Monocytes/100 WBC (Bld) 9.9 % 0-10 [facility] Mucus LM Ql (Urine sed)Order ed By: Cristofer Miranda on 10-23-2024 Mucus Ql (Urine sed) 0 SEEN /hpf [facility] Natriuretic peptide.B prohor nnamdi N-Terminal [Mass/volume] in Serum or PlasmaOrdered By: Cristofer Miranda on 10-23-2024 Natriuretic peptide.B prohormone N-Terminal [Mass/Vol] 86 pg/mL <1800 [facility] Comment on above: Heart Failure Unlike ly: < 300 pg/mLHeart Failure Likely< 50 Years: > 450 pg/mL50-75 Years: > 900 pg/mL>75 Years: > 1800 pg/mL Neutrophil percentageOrdered By: Cristofer Miranda on 10-23-2024 Neutrophils/100 WBC (Bld) 72.4 % High 47-70 [facility] Nitrite Test strip Ql (U)Ord ered By: Cristofer Miranda on 10-23-2024 Nitrite Ql (U) Negative Negative [facility] No Panel InformationOrdered By: Davis Dougherty on 10-23-2024 Body Fluid Comment 2 SEE COMMENT [facility] Comment on above: .INTERPRETATION OF R ESULTS: Differentiation of transudate and exudate fluid: TRANSUDATE EXUDATE Color- Clear,straw colored Clear,turbid,bloody,purulent RBCs- Usually none to few Often present in high numbers WBCs- Usually none to few Often present in high numbers DIFF Few lymphocytes or Lymphocytes, neutrophils, andCount- mesothelial cells. polymorphonuclear cells . SEE COMMENT [facility] No Panel InformationOrdered By: Cristofer Miranda on 10-23-2024 16 U/L <38 [facility] Nucleated red blood cell per centageOrdered By: Cristofer Miranda on 10-23-2024 Nucleated RBC/100 WBC (Bld) [Ratio] 0 % 0-5 [facility] Partial Thromboplast Timeon 10-23-2024 aPTT Coag (Bld) [Time] 31.0 s Normal 24.1-36.2 [facility] Comment on above: Performed By: #### L 503.6005, L300.4310, M200.1000, L100.0100, L300.3900, L500.4050, L503.7505 ####[facility] [address] [place], [place], [address] Pathologist interpretation o f Body fluid testsOrdered By: Daivs Dougherty on 10-23-2024 Pathologist interpretation (Body fld) [Interp] May follow [facility] Pathologist interpretation (Body fld) [Interp] Reviewed [facility] Comment on above: Previous reported re sult: May follow Edited by: HARJINDER on 11/03/24:0906PATHOLOGIST DIFFERENTIAL COUNT:15% LYMPHOCYTES5% MONOCYTE/NQXOULUFFKV48% EOSINOPHILS4% BASOPHILSJyoti Fierro MD 11/03/2024 AMENDED REPORT 11/03/24 0906 PATH COMM/BF previously reported as: May follow Platelet countOrdered By: Duncan Miranda on 10-23-2024 Platelets (Bld) [#/Vol] 265 10*3/uL 150-450 [facility] Potassium measurement (mass/ volume)Ordered By: Cristofer Miranda on 10-23-2024 Potassium (Unsp spec) [Mass/Vol] 4.0 mmol/L 3.3-5.1 [facility] Protein Test strip Ql (U)Ord ered By: Cristofer Miranda on 10-23-2024 Protein Ql (U) 15 mg/dl High Negative [facility] Protein, Body Fluidon 2024 Protein [Mass/Vol] 5.2 g/dL Normal Not Establ. [facility] Comment on above: Performed By: #### L 504.0250, L503.0300, L503.0100 ####[facility] [address] [place], [address] Protein, Totalon 10-23-2024 T PROT Normal 5.9-8.4 [facility] Comment on above: Result Comment: DUPL ICATE-ALREADY DONE IN [facility] Performed By: #### L 001.0705 ####[facility] [address] [place], [address] Prothrombin Time w/INRon INR Coag (PPP) [Relative time] 1.0 {INR} Normal [facility] Comment on above: Performed By: #### L 503.6005, L300.4310, M200.1000, L100.0100, L300.3900, L500.4050, L503.7505 ####[facility] [address] [place], [address] PT Coag (PPP) [Time] 13.5 s Normal 11.7-14.9 [facility] Comment on above: Performed By: #### L 503.6005, L300.4310, M200.1000, L100.0100, L300.3900, L500.4050, L503.7505 ####[facility] [address] [place], [address] Prothrombin timeOrdered By: Cristofer Miranda on 10-23-2024 PT Coag (PPP) [Time] 13.5 s 11.7-14.9 [facility] RBC Auto (Bld) [#/Vol]Ordere d By: Cristofer Miranda on 10-23-2024 RBC (Bld) [#/Vol] 4.71 10*6/uL 4.6-6.2 [facility] Serum creatinine measurement (mass/volume)Ordered By: Cristofer Miranda on 10-23-2024 Creatinine [Mass/Vol] 0.61 mg/dL Low 0.70-1.20 [facility] Serum globulin measurementOr dered By: Cristofer Miranda on 10-23-2024 Globulin (S) [Mass/Vol] 4.0 g/dL 2.2-4.2 [facility] Serum glucose measurement (m ass/volume)Ordered By: Cristofer Miranda on 10-23-2024 Glucose [Mass/Vol] 123 mg/dL High 70-99 [facility] Serum or plasma alanine mosley otransferase (ALT) measurementOrdered By: Cristofer Miranda on 10-23-2024 ALT [Catalytic activity/Vol] 8 U/L <47 [facility] Serum or plasma albumin anitra urement (mass/volume)Ordered By: Cristofer Miranda on 10-23-2024 Albumin [Mass/Vol] 3.8 g/dL 3.4-4.8 [facility] Serum or plasma albumin/glob ulin mass ratioOrdered By: Cristofer Miranda on 10-23-2024 Albumin/Globulin [Mass ratio] 0.9 {ratio} 0.9-2.4 [facility] Serum or plasma alkaline sheila sphatase measurementOrdered By: Cristofer Miranda on 10-23-2024 ALP [Catalytic activity/Vol] 81 U/L 40-129 [facility] Serum or plasma calcium anitra urement (mass/volume)Ordered By: Cristofer Miranda on 10-23-2024 Calcium [Mass/Vol] 9.5 mg/dL 7.6-11.0 [facility] Serum or plasma urea nitroge n measurement (mass/volume)Ordered By: Cristofer Miranda on 10-23-2024 Urea nitrogen [Mass/Vol] 11 mg/dL 4-19 [facility] Sodium levelOrdered By: Naeem Miranda on 10-23-2024 Sodium [Moles/Vol] 136 mmol/L 133-145 [facility] Special Stain Group Ion 10-05 Special Stain Group I Normal [facility] Comment on above: Performed By: #### P SSI ####[facility] [address] [place], [place], [phone] Specimen source identificati on of body fluidOrdered By: Davis Dougherty on 10-23-2024 Specimen source Nom (Body fld) THORACENTESIS [facility] Squamous epithelial cells de tection in urine sediment by light microscopyOrdered By: Cristofer Miranda on 10-23-2024 Epithelial cells.squamous LM Ql (Urine sed) 0 SEEN /hpf 0-5 [facility] Thoracentesis W USon 025 Thoracentesis W US Normal [facility] Total proteinOrdered By: Omi Miranda on 10-23-2024 Protein [Mass/Vol] 7.9 g/dL 5.9-8.4 [facility] Troponin T.cardiac [Mass/vol ume] in Serum or Plasma by High sensitivity methodOrdered By: Cristofer Miranda on 10-23-2024 Troponin T.cardiac High sensitivity method [Mass/Vol] 7 ng/L <22 [facility] Troponin T.cardiac High sensitivity method [Mass/Vol] 9 ng/L <22 [facility] Comment on above: Delta: 12 on 5-1238 Urinalysis, Completeon 10-23 RBC 0 SEEN Normal 0-5 [facility] Comment on above: Order Comment: FAISAL CTOR TO SPECIFY Performed By: #### L 400.0001, ####[facility] [address] [place], [address] WBC 5-10 SEEN Normal 0-5 [facility] Comment on above: Order Comment: FAISAL CTOR TO SPECIFY Performed By: #### L 400.0001, ####[facility] [address] [place], [address] BACTERIA 0 SEEN Normal None Seen [facility] Comment on above: Order Comment: FAISAL CTOR TO SPECIFY Performed By: #### L 400.0001, ####[facility] [address] [place], [address] EPI,SQUAMOUS 0 SEEN Normal 0-5 [facility] Comment on above: Order Comment: FAISAL CTOR TO SPECIFY Performed By: #### L 400.0001, M100.0 ####[facility] [address] [place], [address] Mucus Ql (Urine sed) 0 SEEN Normal [facility] Comment on above: Order Comment: COLLE CTOR TO SPECIFY Performed By: #### L 400.0001, M100.2200 ####[facility] [address] [place], [address] Urine clarityOrdered By: Omi Miranda on 10-23-2024 Clarity (U) Clear Clear [facility] Urine color determinationOrd ered By: Cristofer Miranda on 10-23-2024 Color (U) Yellow Yellow [facility] Urine cultureOrdered By: Omi Miranda on 10-23-2024 Bacteria identified Cx Nom (U) Positive Abnormal [facility] Urine glucose detectionOrder ed By: Cristofer Miranda on 10-23-2024 Glucose Ql (U) Normal mg/dl Normal [facility] Urine leukocyte esterase det ection by dipstickOrdered By: Cristofer Miranda on 10-23-2024 Leukocyte esterase Test strip Ql (U) 100 /ul High Negative [facility] Urine pHOrdered By: Cristofer judge on 10-23-2024 pH (U) 7.0 [pH] 5.0 - 8.0 [facility] Urine sediment bacteria coun t by microscopy (number/high power field)Ordered By: Cristofer Miranda on 10-23-2024 Bacteria LM.HPF (Urine sed) [#/Area] 0 /[HPF] None Seen [facility] Urine specific gravity measu rementOrdered By: Cristofer Miranda on 10-23-2024 Specific gravity (U) [Rel density] 1.005 1.002-1.03 0 [facility] Urine urobilinogen measureme ntOrdered By: Cristofer Miranda on 10-23-2024 Urobilinogen Ql (U) Normal mg/dl Normal [facility] White blood cell (WBC) count Ordered By: Cristofer Miranda on 10-23-2024 WBC (Bld) [#/Vol] 10.6 10*3/uL 4.4-11.0 [facility] White blood cell countOrdere d By: Cristofer Miranda on 10-23-2024 White blood cell count 5-10 SEEN /hpf 0-5 [facility] Chest PA and Lateralon 09-19 Chest PA and Lateral Normal [facility] Absolute lymphocyte countOrd ered By: Thiago Morgan on 09-18-2024 Lymphocytes Auto (Unsp spec) [#/Vol] 1.42 10*3/uL 0.83-4.51 [facility] Absolute neutrophil countOrd ered By: Thiago Morgan on 09-18-2024 Neutrophils (Bld) [#/Vol] 12.4 10*3/uL High 2.0-7.7 [facility] Anion gap in Serum or Plasma Ordered By: Thiago Morgan on 09-18-2024 Anion gap [Moles/Vol] 11 mmol/L 5-15 [facility] Automated lymphocyte count a s percentage of total leukocytesOrdered By: Thiago Morgan on 09-18-2024 Lymphocytes/100 WBC Auto (Unsp spec) 8.6 % Low 19-41 [facility] BUN/creatinine ratioOrdered By: Thiago Morgan on 09-18-2024 Urea nitrogen/Creatinine [Mass ratio] 18.6 mg/mg 10-20 [facility] Basophil percentageOrdered B y: Thiago Morgan on 09-18-2024 Basophils/100 WBC (Bld) 0.5 % 0-1 [facility] Bilirubin, totalOrdered By: Thiago Morgan on 09-18-2024 Bilirubin [Mass/Vol] 0.72 mg/dL 0.00-1.30 [facility] Blood manual differential co mment interpretation (narrative result)Ordered By: Thiago Morgan on 09-18-2024 Manual differential comment Niko (Bld) [Interp] SCANNED [facility] Comment on above: MONOCYTOSIS NOTED CBC W/Diff, Automatedon 09-05 PATH REV May foll Normal [facility] Comment on above: Performed By: #### L 500.4050, L100.0100 ####[facility] [address], [address] SMEAR COMMENT SCANNED Normal [facility] Comment on above: Result Comment: MONO CYTOSIS NOTED Performed By: #### L 500.4050, L100.0100 ####[facility] [address] [place], [address] Carbon dioxide, total [Moles /volume] in Central venous bloodOrdered By: Thiago Morgan on 09-18-2024 CO2 [Moles/Vol] 28.3 mmol/L 21.0-32.0 [facility] Chloride assayOrdered By: Al ycia Cathy on 09-18-2024 Chloride [Moles/Vol] 93 mmol/L Low 98-108 [facility] Comprehensive Metabolic Prof ilon 09-18-2024 Albumin [Mass/Vol] 3.8 g/dL Normal 3.4-4.8 [facility] Comment on above: Performed By: #### L 500.4050, L100.0100 ####[facility] [address] [place], [address] Albumin/Globulin [Mass ratio] 1.0 {ratio} Normal 0.9-2.4 [facility] Comment on above: Performed By: #### L 500.4050, L100.0100 ####[facility] [address] [place], [address] ALK PHOS 74 U/L Normal 40-129 [facility] Comment on above: Performed By: #### L 500.4050, L100.0100 ####[facility] [address] [place], [address] ALT [Catalytic activity/Vol] 31 U/L Normal <=46 [facility] Comment on above: Performed By: #### L 500.4050, L100.0100 ####[facility] [address], [address] AST [Catalytic activity/Vol] 26 U/L Normal <=37 [facility] Comment on above: Performed By: #### L 500.4050, L100.0100 ####[facility] [address] [place], [address] Bilirubin [Mass/Vol] 0.72 mg/dL Normal 0.00-1.30 [facility] Comment on above: Performed By: #### L 500.4050, L100.0100 ####[facility] [address] [place], [address] BUN/CRE 18.6 RATIO Normal 10-20 [facility] Comment on above: Performed By: #### L 500.4050, L100.0100 ####[facility] [address] [place], [address] Calcium [Mass/Vol] 9.2 mg/dL Normal 7.6-11.0 [facility] Comment on above: Performed By: #### L 500.4050, L100.0100 ####[facility] [address] [place], [address] Chloride [Moles/Vol] 93 mmol/L Low 98-108 [facility] Comment on above: Performed By: #### L 500.4050, L100.0100 ####[facility] [address] [place], [address] CO2 [Moles/Vol] 28.3 mmol/L Normal 21.0-32.0 [facility] Comment on above: Performed By: #### L 500.4050, L100.0100 ####[facility] [address] [place], [address] Creatinine [Mass/Vol] 0.74 mg/dL Normal 0.70-1.20 [facility] Comment on above: Performed By: #### L 500.4050, L100.0100 ####[facility] [address] [place], [address] GAP 11 Normal 5-15 [facility] Comment on above: Performed By: #### L 500.4050, L100.0100 ####[facility] [address] [place], [address] GFR/1.73 sq M.predicted among non-blacks MDRD (S/P/Bld) [Vol rate/Area] 93 mL/min/{1.73_m2} Normal >60 [facility] Comment on above: Result Comment: mL/m in/1.73m2 CKD-EPI Creatinine Equation (2020) Performed By: #### L 500.4050, L100.0100 ####[facility] [address] [place], [address] Globulin (S) [Mass/Vol] 3.8 g/dL Normal 2.2-4.2 [facility] Comment on above: Performed By: #### L 500.4050, L100.0100 ####[facility] [address], [address] Glucose [Mass/Vol] 92 mg/dL Normal 70-99 [facility] Comment on above: Performed By: #### L 500.4050, L100.0100 ####[facility] [address], [address] Potassium [Moles/Vol] 4.7 mmol/L Normal 3.3-5.1 [facility] Comment on above: Performed By: #### L 500.4050, L100.0100 ####[facility] [address] [place], [address] Sodium [Moles/Vol] 133 mmol/L Normal 133-145 [facility] Comment on above: Performed By: #### L 500.4050, L100.0100 ####[facility] [address] [place], [address] T PROT 7.6 g/dL Normal 5.9-8.4 [facility] Comment on above: Performed By: #### L 500.4050, L100.0100 ####[facility] [address] [place], [place], [address] Urea nitrogen [Mass/Vol] 14 mg/dL Normal 4-19 [facility] Comment on above: Performed By: #### L 500.4050, L100.0100 ####[facility] [address] [place], [address] Eosinophil percentageOrdered By: Thiago Morgan on 09-18-2024 Eosinophils/100 WBC (Bld) 3.6 % 0-5 [facility] Erythrocyte distribution wid th (RBC) [Ratio]Ordered By: Thiago Morgan on 09-18-2024 Erythrocyte distribution width (RBC) [Entitic vol] 45.0 fL High 35.1-43.9 [facility] Erythrocyte distribution wid th ratioOrdered By: Thiago Morgan on 09-18-2024 Erythrocyte distribution width (RBC) [Ratio] 13.5 % 11.6-14.6 [facility] Erythrocyte distribution wid th standard deviationOrdered By: Thiago Morgan on 09-18-2024 Erythrocyte distribution width (RBC) [Ratio] 45.0 fl High 35.1-43.9 [facility] GFR/1.73 sq M.predicted ken g non-blacks MDRD (S/P/Bld) [Vol rate/Area]Ordered By: Thiago Morgan on 09-18-2024 Estimated GFR (MDRD) Non-Af Amer 93 >60 [facility] Comment on above: mL/min/1.73m2 CKD-EP I Creatinine Equation (2020) Glomerular filtration rate ( GFR) estimation/1.73 sq m using serum, plasma, or whole bOrdered By: Thiago Morgan on 09-18-2024 GFR/1.73 sq M.predicted among non-blacks MDRD (S/P/Bld) [Vol rate/Area] 93 mL/min/{1.73_m2} >60 [facility] Comment on above: mL/min/1.73m2 CKD-EP I Creatinine Equation (2020) Hematocrit Auto (Bld) [Volum e fraction]Ordered By: Thiago Morgan on 09-18-2024 Hematocrit (Bld) [Volume fraction] 48.7 % 40-54 [facility] Hemoglobin measurementOrdere d By: Thiago Morgan on 09-18-2024 Hemoglobin (Bld) [Mass/Vol] 15.3 g/dL 13.0-16.5 [facility] Immature granulocytes/100 WB C Auto (Bld)Ordered By: Thiago Morgan on 09-18-2024 Immature granulocytes/100 WBC (Bld) 1.300 % High 0.0-0.9 [facility] Comment on above: IG% - Immature Granu locytes (promyelocytes, myelocytes and metamyelocytes) > 1% indicates that a LEFT SHIFT is Present. Laboratory - Chemistry and C hemistry - challengeOrdered By: Thiago Morgan on 09-18-2024 AST [Catalytic activity/Vol] 26 U/L <38 [facility] Lymphocytes Auto (Unsp spec) [#/Vol]Ordered By: Thiago Morgan on 09-18-2024 Lymphocytes (Bld) [#/Vol] 1.42 10*3/uL 0.83-4.51 [facility] Lymphocytes/100 WBC Auto (Un sp spec)Ordered By: Thiago Morgan on 09-18-2024 Lymphocytes/100 WBC (Bld) 8.6 % Low 19-41 [facility] MCV (mean corpuscular volume ) determinationOrdered By: Thiago Morgan on 09-18-2024 MCV (RBC) [Entitic vol] 90.7 fL 80-94 [facility] Manual differential comment Niko (Bld) [Interp]Ordered By: Thiago Morgan on 09-18-2024 Differential Comment SCANNED [facility] Comment on above: MONOCYTOSIS NOTED Mean corpuscular hemoglobin (MCH) determinationOrdered By: Thiago Morgan on 09-18-2024 MCH (RBC) [Entitic mass] 28.5 pg 27.0-32.0 [facility] Mean corpuscular hemoglobin concentration (MCHC) determinationOrdered By: Thiago Morgan on 09-18-2024 MCHC (RBC) [Mass/Vol] 31.4 g/dL Low 32-36 [facility] Mean platelet volume determi nationOrdered By: Thiago Morgan on 09-18-2024 Platelet mean volume (Bld) [Entitic vol] 10.7 fL 6.2-12.0 [facility] Monocyte percentageOrdered B y: Thiago Morgan on 09-18-2024 Monocytes/100 WBC (Bld) 10.8 % High 0-10 [facility] Neutrophil percentageOrdered By: Thiago Morgan on 09-18-2024 Neutrophils/100 WBC (Bld) 75.2 % High 47-70 [facility] No Panel InformationOrdered By: Thiago Morgan on 09-18-2024 26 U/L <38 [facility] Nucleated red blood cell per centageOrdered By: Thiago Morgan on 09-18-2024 Nucleated RBC/100 WBC (Bld) [Ratio] 0 % 0-5 [facility] Pathologist review Niko (Unsp spec) [Interp]Ordered By: Thiago Morgan on 09-18-2024 Differential Pathologist's Review May foll [facility] Platelet countOrdered By: Jamie Morgan on 09-18-2024 Platelets (Bld) [#/Vol] 243 10*3/uL 150-450 [facility] Potassium (Unsp spec) [Mass/ Vol]Ordered By: Thiago Morgan on 09-18-2024 Potassium [Moles/Vol] 4.7 mmol/L 3.3-5.1 [facility] Potassium measurement (mass/ volume)Ordered By: Thiago Morgan on 09-18-2024 Potassium (Unsp spec) [Mass/Vol] 4.7 mmol/L 3.3-5.1 [facility] RBC Auto (Bld) [#/Vol]Ordere d By: Thiago Morgan on 09-18-2024 RBC (Bld) [#/Vol] 5.37 10*6/uL 4.6-6.2 [facility] Review by pathologistOrdered By: Thiago Morgan on 09-18-2024 Pathologist review Niko (Unsp spec) [Interp] October foll [facility] Serum creatinine measurement (mass/volume)Ordered By: Thiago Morgan on 09-18-2024 Creatinine [Mass/Vol] 0.74 mg/dL 0.70-1.20 [facility] Serum globulin measurementOr dered By: Thiago Morgan on 09-18-2024 Globulin (S) [Mass/Vol] 3.8 g/dL 2.2-4.2 [facility] Serum glucose measurement (m ass/volume)Ordered By: Thiago Morgan on 09-18-2024 Glucose [Mass/Vol] 92 mg/dL 70-99 [facility] Serum or plasma alanine mosley otransferase (ALT) measurementOrdered By: Thiago Morgan on 09-18-2024 ALT [Catalytic activity/Vol] 31 U/L <47 [facility] Serum or plasma albumin anitra urement (mass/volume)Ordered By: Thiago Morgan on 09-18-2024 Albumin [Mass/Vol] 3.8 g/dL 3.4-4.8 [facility] Serum or plasma albumin/glob ulin mass ratioOrdered By: Thiago Morgan on 09-18-2024 Albumin/Globulin [Mass ratio] 1.0 {ratio} 0.9-2.4 [facility] Serum or plasma alkaline sheila sphatase measurementOrdered By: Thiago Morgan on 09-18-2024 ALP [Catalytic activity/Vol] 74 U/L 40-129 [facility] Serum or plasma calcium anitra urement (mass/volume)Ordered By: Thiago Morgan on 09-18-2024 Calcium [Mass/Vol] 9.2 mg/dL 7.6-11.0 [facility] Serum or plasma urea nitroge n measurement (mass/volume)Ordered By: Thiago Morgan on 09-18-2024 Urea nitrogen [Mass/Vol] 14 mg/dL 4-19 [facility] Sodium levelOrdered By: Simran Morgan on 09-18-2024 Sodium [Moles/Vol] 133 mmol/L 133-145 [facility] Total proteinOrdered By: Lb Morgan on 09-18-2024 Protein [Mass/Vol] 7.6 g/dL 5.9-8.4 [facility] White blood cell (WBC) count Ordered By: Thiago Morgan on 09-18-2024 WBC (Bld) [#/Vol] 16.5 10*3/uL High 4.4-11.0 [facility] Internal Medicine Office Vis iton 09-17-2024 Internal Medicine Office Visit Normal [facility] Respiratory Cultureon 2024 RESPC Normal [facility] Comment on above: Performed By: #### M 100.2400, M100.2000 ####[facility] [address] [place], [address] Basic Metabolic Profile (BMP )on 09-07-2024 BUN Normal 4-19 [facility] Comment on above: Result Comment: Canc elled via OM: Order cancelled - Patient discharged Performed By: #### L 100.0100, L500.2500 ####[facility] [address] [place], [address] BUN/CRE Normal 10-20 [facility] Comment on above: Result Comment: Canc elled via OM: Order cancelled - Patient discharged Performed By: #### L 100.0100, L500.2500 ####[facility] [address] [place], [address] Calcium Normal 7.6-11.0 [facility] Comment on above: Result Comment: Canc elled via OM: Order cancelled - Patient discharged Performed By: #### L 100.0100, L500.2500 ####[facility] [address] [place], [address] CL Normal 98-108 [facility] Comment on above: Result Comment: Canc elled via OM: Order cancelled - Patient discharged Performed By: #### L 100.0100, L500.2500 ####[facility] [address] [place], [address] CO2 Normal 21.0-32.0 [facility] Comment on above: Result Comment: Canc elled via OM: Order cancelled - Patient discharged Performed By: #### L 100.0100, L500.2500 ####[facility] [address] [place], [address] CREAT,SERUM Normal 0.70-1.20 [facility] Comment on above: Result Comment: Canc elled via OM: Order cancelled - Patient discharged Performed By: #### L 100.0100, L500.2500 ####[facility] [address] [place], [address] eGFR Normal >60 [facility] Comment on above: Result Comment: Canc elled via OM: Order cancelled - Patient discharged Performed By: #### L 100.0100, L500.2500 ####[facility] [address] [place], [address] GAP Normal 5-15 [facility] Comment on above: Result Comment: Canc elled via OM: Order cancelled - Patient discharged Performed By: #### L 100.0100, L500.2500 ####[facility] [address] [place], [address] GLU Normal 70-99 [facility] Comment on above: Result Comment: Canc elled via OM: Order cancelled - Patient discharged Performed By: #### L 100.0100, L500.2500 ####[facility] [address] [place], [address] Potassium Normal 3.3-5.1 [facility] Comment on above: Result Comment: Canc elled via OM: Order cancelled - Patient discharged Performed By: #### L 100.0100, L500.2500 ####[facility] [address] [place], [address] Basic Metabolic Profile (BMP) Normal 133-145 [facility] Comment on above: Result Comment: Canc elled via OM: Order cancelled - Patient discharged Performed By: #### L 100.0100, L500.2500 ####[facility] [address] [place], [address] CBC W/Diff, Automatedon 04-0 -2024 Absolute Neut Normal 2.0-7.7 [facility] Comment on above: Result Comment: Canc elled via OM: Order cancelled - Patient discharged Performed By: #### L 100.0100, L500.2500 ####[facility] [address] [place], [address] HCT Normal 40-54 [facility] Comment on above: Result Comment: Canc elled via OM: Order cancelled - Patient discharged Performed By: #### L 100.0100, L500.2500 ####[facility] [address] [place], [address] HGB Normal 13.0-16.5 [facility] Comment on above: Result Comment: Canc elled via OM: Order cancelled - Patient discharged Performed By: #### L 100.0100, L500.2500 ####[facility] [address] [place], [address] MCH Normal 27.0-32.0 [facility] Comment on above: Result Comment: Canc elled via OM: Order cancelled - Patient discharged Performed By: #### L 100.0100, L500.2500 ####[facility] [address] [place], [address] MCHC Normal 32-36 [facility] Comment on above: Result Comment: Canc elled via OM: Order cancelled - Patient discharged Performed By: #### L 100.0100, L500.2500 ####[facility] [address] [place], [address] MCV Normal 80-94 [facility] Comment on above: Result Comment: Canc elled via OM: Order cancelled - Patient discharged Performed By: #### L 100.0100, L500.2500 ####[facility] [address] [place], [address] NEUT% Normal 47-70 [facility] Comment on above: Result Comment: Canc elled via OM: Order cancelled - Patient discharged Performed By: #### L 100.0100, L500.2500 ####[facility] [address] [place], [address] PLT Normal 150-450 [facility] Comment on above: Result Comment: Canc elled via OM: Order cancelled - Patient discharged Performed By: #### L 100.0100, L500.2500 ####[facility] [address] [place], [address] RBC Normal 4.6-6.2 [facility] Comment on above: Result Comment: Canc elled via OM: Order cancelled - Patient discharged Performed By: #### L 100.0100, L500.2500 ####[facility] [address] [place], [address] RDW CV Normal 11.6-14.6 [facility] Comment on above: Result Comment: Canc elled via OM: Order cancelled - Patient discharged Performed By: #### L 100.0100, L500.2500 ####[facility] [address] [place], [address] RDW SD Normal 35.1-43.9 [facility] Comment on above: Result Comment: Canc elled via OM: Order cancelled - Patient discharged Performed By: #### L 100.0100, L500.2500 ####[facility] [address] [place], [address] WBC Normal 4.4-11.0 [facility] Comment on above: Result Comment: Canc elled via OM: Order cancelled - Patient discharged Performed By: #### L 100.0100, L500.2500 ####[facility] [address] [place], [address] Absolute lymphocyte countOrd ered By: Ty Cunningham on 09-06-2024 Lymphocytes Auto (Unsp spec) [#/Vol] 0.50 10*3/uL Low 0.83-4.51 [facility] Absolute neutrophil countOrd ered By: Ty Cunningham on 09-06-2024 Neutrophils (Bld) [#/Vol] 10.0 10*3/uL High 2.0-7.7 [facility] Anion gap in Serum or Plasma Ordered By: Ty Cunningham on 09-06-2024 Anion gap [Moles/Vol] 11 mmol/L 5-15 [facility] Automated lymphocyte count a s percentage of total leukocytesOrdered By: Ty Cunningham on 09-06-2024 Lymphocytes/100 WBC Auto (Unsp spec) 4.4 % Low 19-41 [facility] BUN/creatinine ratioOrdered By: Ty Cunningham on 09-06-2024 Urea nitrogen/Creatinine [Mass ratio] 38.3 mg/mg High 10-20 [facility] Basic Metabolic Profile (BMP )on 09-06-2024 BUN/CRE 38.3 RATIO High 10-20 [facility] Comment on above: Performed By: #### L 500.2500, L100.0100 ####[facility] [address] [place], [address] Calcium [Mass/Vol] 8.7 mg/dL Normal 7.6-11.0 [facility] Comment on above: Performed By: #### L 500.2500, L100.0100 ####[facility] [address] [place], [address] Chloride [Moles/Vol] 96 mmol/L Low 98-108 [facility] Comment on above: Performed By: #### L 500.2500, L100.0100 ####[facility] [address] [place], [address] CO2 [Moles/Vol] 29.3 mmol/L Normal 21.0-32.0 [facility] Comment on above: Performed By: #### L 500.2500, L100.0100 ####[facility] [address] [place], [address] Creatinine [Mass/Vol] 0.63 mg/dL Low 0.70-1.20 [facility] Comment on above: Performed By: #### L 500.2500, L100.0100 ####[facility] [address] [place], [address] ECRCL 95.18 ml/min Normal 50-250 [facility] Comment on above: Performed By: #### L 500.2500, L100.0100 ####[facility] [address] [place], [address] GAP 11 Normal 5-15 [facility] Comment on above: Performed By: #### L 500.2500, L100.0100 ####[facility] [address] [place], [address] GFR/1.73 sq M.predicted among non-blacks MDRD (S/P/Bld) [Vol rate/Area] 98 mL/min/{1.73_m2} Normal >60 [facility] Comment on above: Result Comment: mL/m in/1.73m2 CKD-EPI Creatinine Equation (2020) Performed By: #### L 500.2500, L100.0100 ####[facility] [address] [place], [address] Glucose [Mass/Vol] 118 mg/dL High 70-99 [facility] Comment on above: Performed By: #### L 500.2500, L100.0100 ####[facility] [address] [place], [address] Potassium [Moles/Vol] 4.4 mmol/L Normal 3.3-5.1 [facility] Comment on above: Result Comment: Hemo lysis present, Results??could be affected.?? Performed By: #### L 500.2500, L100.0100 ####[facility] [address] [place], [address] Sodium [Moles/Vol] 136 mmol/L Normal 133-145 [facility] Comment on above: Performed By: #### L 500.2500, L100.0100 ####[facility] [address], [address] Urea nitrogen [Mass/Vol] 24 mg/dL High 4-19 [facility] Comment on above: Performed By: #### L 500.2500, L100.0100 ####[facility] [address] [place], [address] Basophil percentageOrdered B y: Ty Cunningham on 09-06-2024 Basophils/100 WBC (Bld) 0.1 % 0-1 [facility] CBC W/Diff, Automatedon 04-0 Absolute Lymph 0.50 X10 3/uL Low 0.83-4.51 [facility] Comment on above: Performed By: #### L 500.2500, L100.0100 ####[facility] [address] [place], [address] Absolute Neut 10.0 X10 3/uL High 2.0-7.7 [facility] Comment on above: Performed By: #### L 500.2500, L100.0100 ####[facility] [address] [place], [address] Basophils/100 WBC (Bld) 0.1 % Normal 0-1 [facility] Comment on above: Performed By: #### L 500.2500, L100.0100 ####[facility] [address] [place], [address] Eosinophils/100 WBC (Bld) 0.1 % Normal 0-5 [facility] Comment on above: Performed By: #### L 500.2500, L100.0100 ####[facility] [address] [place], [address] Erythrocyte distribution width (RBC) [Ratio] 13.2 % Normal 11.6-14.6 [facility] Comment on above: Performed By: #### L 500.2500, L100.0100 ####[facility] [address] [place], [address] Hematocrit (Bld) [Volume fraction] 44.1 % Normal 40-54 [facility] Comment on above: Performed By: #### L 500.2500, L100.0100 ####[facility] [address] [place], [address] Hemoglobin (Bld) [Mass/Vol] 13.7 g/dL Normal 13.0-16.5 [facility] Comment on above: Performed By: #### L 500.2500, L100.0100 ####[facility] [address] [place], [address] IG% 0.600 Normal 0.0-0.9 [facility] Comment on above: Result Comment: IG% - Immature Granulocytes (promyelocytes, myelocytes andmetamyelocytes) > 1% indicates that a LEFT SHIFT is Present. Performed By: #### L 500.2500, L100.0100 ####[facility] [address] [place], [address] Lymphocytes/100 WBC (Bld) 4.4 % Low 19-41 [facility] Comment on above: Performed By: #### L 500.2500, L100.0100 ####[facility] [address] [place], [address] MCH (RBC) [Entitic mass] 28.5 pg Normal 27.0-32.0 [facility] Comment on above: Performed By: #### L 500.2500, L100.0100 ####[facility] [address] [place], [address] MCHC (RBC) [Mass/Vol] 31.1 g/dL Low 32-36 [facility] Comment on above: Performed By: #### L 500.2500, L100.0100 ####[facility] [address] [place], [address] MCV (RBC) [Entitic vol] 91.9 fL Normal 80-94 [facility] Comment on above: Performed By: #### L 500.2500, L100.0100 ####[facility] [address] [place], [address] Monocytes/100 WBC (Bld) 6.0 % Normal 0-10 [facility] Comment on above: Performed By: #### L 500.2500, L100.0100 ####[facility] [address] [place], [address] Neutrophils/100 WBC (Bld) 88.8 % High 47-70 [facility] Comment on above: Performed By: #### L 500.2500, L100.0100 ####[facility] [address] [place], [address] Nucleated RBC (Bld) [#/Vol] 0 10*3/uL Normal 0-5 [facility] Comment on above: Performed By: #### L 500.2500, L100.0100 ####[facility] [address], [address] Platelet mean volume (Bld) [Entitic vol] 10.2 fL Normal 6.2-12.0 [facility] Comment on above: Performed By: #### L 500.2500, L100.0100 ####[facility] [address], [address] Platelets (Bld) [#/Vol] 296 10*3/uL Normal 150-450 [facility] Comment on above: Performed By: #### L 500.2500, L100.0100 ####[facility] [address] [place], [address] RBC (Bld) [#/Vol] 4.80 10*6/uL Normal 4.6-6.2 [facility] Comment on above: Performed By: #### L 500.2500, L100.0100 ####[facility] [address] [place], [address] RDW SD 44.8 fl High 35.1-43.9 [facility] Comment on above: Performed By: #### L 500.2500, L100.0100 ####[facility] [address] [place], [address] WBC (Bld) [#/Vol] 11.3 10*3/uL High 4.4-11.0 [facility] Comment on above: Performed By: #### L 500.2500, L100.0100 ####[facility] [address] [place], [address] Carbon dioxide, total [Moles /volume] in Central venous bloodOrdered By: Ty Cunningham on 09-06-2024 CO2 [Moles/Vol] 29.3 mmol/L 21.0-32.0 [facility] Chloride assayOrdered By: Moreno Cunningham on 09-06-2024 Chloride [Moles/Vol] 96 mmol/L Low 98-108 [facility] Eosinophil percentageOrdered By: Ty Cunningham on 09-06-2024 Eosinophils/100 WBC (Bld) 0.1 % 0-5 [facility] Erythrocyte distribution wid th (RBC) [Ratio]Ordered By: Ty Cunningham on 09-06-2024 Erythrocyte distribution width (RBC) [Entitic vol] 44.8 fL High 35.1-43.9 [facility] Erythrocyte distribution wid th ratioOrdered By: Ty Cunningham on 09-06-2024 Erythrocyte distribution width (RBC) [Ratio] 13.2 % 11.6-14.6 [facility] Erythrocyte distribution wid th standard deviationOrdered By: Ty Cunningham on 09-06-2024 Erythrocyte distribution width (RBC) [Ratio] 44.8 fl High 35.1-43.9 [facility] Estimation of creatinine carlos aranceOrdered By: Ty Cunningham on 09-06-2024 Estimated Creatinine Clearance Calc 95.18 ml/min 50-250 [facility] GFR/1.73 sq M.predicted ken g non-blacks MDRD (S/P/Bld) [Vol rate/Area]Ordered By: Ty Cunningham on 09-06-2024 Estimated GFR (MDRD) Non-Af Amer 98 >60 [facility] Comment on above: mL/min/1.73m2 CKD-EP I Creatinine Equation (2020) Glomerular filtration rate ( GFR) estimation/1.73 sq m using serum, plasma, or whole bOrdered By: Ty Cunningham on 09-06-2024 GFR/1.73 sq M.predicted among non-blacks MDRD (S/P/Bld) [Vol rate/Area] 98 mL/min/{1.73_m2} >60 [facility] Comment on above: mL/min/1.73m2 CKD-EP I Creatinine Equation (2020) Hematocrit Auto (Bld) [Volum e fraction]Ordered By: Ty Cunningham on 09-06-2024 Hematocrit (Bld) [Volume fraction] 44.1 % 40-54 [facility] Hemoglobin measurementOrdere d By: Ty Cunningham on 09-06-2024 Hemoglobin (Bld) [Mass/Vol] 13.7 g/dL 13.0-16.5 [facility] Immature granulocytes/100 WB C Auto (Bld)Ordered By: Ty Cunningham on 09-06-2024 Immature granulocytes/100 WBC (Bld) 0.600 % 0.0-0.9 [facility] Comment on above: IG% - Immature Granu locytes (promyelocytes, myelocytes and metamyelocytes) > 1% indicates that a LEFT SHIFT is Present. Lymphocytes Auto (Unsp spec) [#/Vol]Ordered By: Ty Cunningham on 09-06-2024 Lymphocytes (Bld) [#/Vol] 0.50 10*3/uL Low 0.83-4.51 [facility] Lymphocytes/100 WBC Auto (Un sp spec)Ordered By: Ty Cunningham on 09-06-2024 Lymphocytes/100 WBC (Bld) 4.4 % Low 19-41 [facility] MCV (mean corpuscular volume ) determinationOrdered By: Ty Cunningham on 09-06-2024 MCV (RBC) [Entitic vol] 91.9 fL 80-94 [facility] Mean corpuscular hemoglobin (MCH) determinationOrdered By: Ty Cunningham on 09-06-2024 MCH (RBC) [Entitic mass] 28.5 pg 27.0-32.0 [facility] Mean corpuscular hemoglobin concentration (MCHC) determinationOrdered By: Ty Cunningham on 09-06-2024 MCHC (RBC) [Mass/Vol] 31.1 g/dL Low 32-36 [facility] Mean platelet volume determi nationOrdered By: Ty Cunningham on 09-06-2024 Platelet mean volume (Bld) [Entitic vol] 10.2 fL 6.2-12.0 [facility] Monocyte percentageOrdered B y: Ty Cunningham on 09-06-2024 Monocytes/100 WBC (Bld) 6.0 % 0-10 [facility] Neutrophil percentageOrdered By: Ty Cunningham on 09-06-2024 Neutrophils/100 WBC (Bld) 88.8 % High 47-70 [facility] Nucleated red blood cell per centageOrdered By: Ty Cunningham on 09-06-2024 Nucleated RBC/100 WBC (Bld) [Ratio] 0 % 0-5 [facility] Platelet countOrdered By: Moreno Cunningham on 09-06-2024 Platelets (Bld) [#/Vol] 296 10*3/uL 150-450 [facility] Potassium (Unsp spec) [Mass/ Vol]Ordered By: Ty Cunningham on 09-06-2024 Potassium [Moles/Vol] 4.4 mmol/L 3.3-5.1 [facility] Comment on above: Hemolysis present, R esults could be affected. Potassium measurement (mass/ volume)Ordered By: Ty Cunningham on 09-06-2024 Potassium (Unsp spec) [Mass/Vol] 4.4 mmol/L 3.3-5.1 [facility] Comment on above: Hemolysis present, R esults could be affected. RBC Auto (Bld) [#/Vol]Ordere d By: Ty Cunningham on 09-06-2024 RBC (Bld) [#/Vol] 4.80 10*6/uL 4.6-6.2 [facility] Serum creatinine measurement (mass/volume)Ordered By: Ty Cunningham on 09-06-2024 Creatinine [Mass/Vol] 0.63 mg/dL Low 0.70-1.20 [facility] Serum glucose measurement (m ass/volume)Ordered By: Ty Cunningham on 09-06-2024 Glucose [Mass/Vol] 118 mg/dL High 70-99 [facility] Serum or plasma calcium anitra urement (mass/volume)Ordered By: Ty Cunningham on 09-06-2024 Calcium [Mass/Vol] 8.7 mg/dL 7.6-11.0 [facility] Serum or plasma urea nitroge n measurement (mass/volume)Ordered By: Ty Cunningham on 09-06-2024 Urea nitrogen [Mass/Vol] 24 mg/dL High 4-19 [facility] Sodium levelOrdered By: Vincent Cunningham on 09-06-2024 Sodium [Moles/Vol] 136 mmol/L 133-145 [facility] White blood cell (WBC) count Ordered By: Ty Cunningham on 09-06-2024 WBC (Bld) [#/Vol] 11.3 10*3/uL High 4.4-11.0 [facility] Basic Metabolic Profile (BMP )on 09-05-2024 BUN/CRE 25.9 RATIO High 10-20 [facility] Comment on above: Performed By: #### L 500.2500, L100.0100, L501.2300, L500.4100, L501.5200 ####[facility] [address] [place], [address] Calcium [Mass/Vol] 9.3 mg/dL Normal 7.6-11.0 [facility] Comment on above: Performed By: #### L 500.2500, L100.0100, L501.2300, L500.4100, L501.5200 ####[facility] [address] [place], [address] Chloride [Moles/Vol] 96 mmol/L Low 98-108 [facility] Comment on above: Performed By: #### L 500.2500, L100.0100, L501.2300, L500.4100, L501.5200 ####[facility] [address] [place], [address] CO2 [Moles/Vol] 32.2 mmol/L High 21.0-32.0 [facility] Comment on above: Performed By: #### L 500.2500, L100.0100, L501.2300, L500.4100, L501.5200 ####[facility] [address] [place], [address] Creatinine [Mass/Vol] 0.66 mg/dL Low 0.70-1.20 [facility] Comment on above: Performed By: #### L 500.2500, L100.0100, L501.2300, L500.4100, L501.5200 ####[facility] [address] [place], [address] ECRCL 95.09 ml/min Normal 50-250 [facility] Comment on above: Performed By: #### L 500.2500, L100.0100, L501.2300, L500.4100, L501.5200 ####[facility] [address] [place], [address] GAP 10 Normal 5-15 [facility] Comment on above: Performed By: #### L 500.2500, L100.0100, L501.2300, L500.4100, L501.5200 ####[facility] [address] [place], [address] GFR/1.73 sq M.predicted among non-blacks MDRD (S/P/Bld) [Vol rate/Area] 97 mL/min/{1.73_m2} Normal >60 [facility] Comment on above: Result Comment: mL/m in/1.73m2 CKD-EPI Creatinine Equation (2020) Performed By: #### L 500.2500, L100.0100, L501.2300, L500.4100, L501.5200 ####[facility] [address] [place], [address] Glucose [Mass/Vol] 120 mg/dL High 70-99 [facility] Comment on above: Performed By: #### L 500.2500, L100.0100, L501.2300, L500.4100, L501.5200 ####[facility] [address] [place], [address] Potassium [Moles/Vol] 4.6 mmol/L Normal 3.3-5.1 [facility] Comment on above: Performed By: #### L 500.2500, L100.0100, L501.2300, L500.4100, L501.5200 ####[facility] [address] [place], [address] Sodium [Moles/Vol] 138 mmol/L Normal 133-145 [facility] Comment on above: Performed By: #### L 500.2500, L100.0100, L501.2300, L500.4100, L501.5200 ####[facility] [address] [place], [address] Urea nitrogen [Mass/Vol] 17 mg/dL Normal 4-19 [facility] Comment on above: Performed By: #### L 500.2500, L100.0100, L501.2300, L500.4100, L501.5200 ####[facility] [address] [place], [address] CBC W/Diff, Automatedon 04-0 -2024 Absolute Lymph 0.64 X10 3/uL Low 0.83-4.51 [facility] Comment on above: Performed By: #### L 500.2500, L100.0100, L501.2300, L500.4100, L501.5200 ####[facility] [address] [place], [address] Absolute Neut 10.7 X10 3/uL High 2.0-7.7 [facility] Comment on above: Performed By: #### L 500.2500, L100.0100, L501.2300, L500.4100, L501.5200 ####[facility] [address] [place], [address] Basophils/100 WBC (Bld) 0.2 % Normal 0-1 [facility] Comment on above: Performed By: #### L 500.2500, L100.0100, L501.2300, L500.4100, L501.5200 ####[facility] [address] [place], [address] Eosinophils/100 WBC (Bld) 0.1 % Normal 0-5 [facility] Comment on above: Performed By: #### L 500.2500, L100.0100, L501.2300, L500.4100, L501.5200 ####[facility] [address] [place], [address] Erythrocyte distribution width (RBC) [Ratio] 13.3 % Normal 11.6-14.6 [facility] Comment on above: Performed By: #### L 500.2500, L100.0100, L501.2300, L500.4100, L501.5200 ####[facility] [address] [place], [address] Hematocrit (Bld) [Volume fraction] 45.0 % Normal 40-54 [facility] Comment on above: Performed By: #### L 500.2500, L100.0100, L501.2300, L500.4100, L501.5200 ####[facility] [address] [place], [address] Hemoglobin (Bld) [Mass/Vol] 14.2 g/dL Normal 13.0-16.5 [facility] Comment on above: Performed By: #### L 500.2500, L100.0100, L501.2300, L500.4100, L501.5200 ####[facility] [address] [place], [address] IG% 0.600 Normal 0.0-0.9 [facility] Comment on above: Result Comment: IG% - Immature Granulocytes (promyelocytes, myelocytes andmetamyelocytes) > 1% indicates that a LEFT SHIFT is Present. Performed By: #### L 500.2500, L100.0100, L501.2300, L500.4100, L501.5200 ####[facility] [address] [place], [address] Lymphocytes/100 WBC (Bld) 5.2 % Low 19-41 [facility] Comment on above: Performed By: #### L 500.2500, L100.0100, L501.2300, L500.4100, L501.5200 ####[facility] [address] [place], [address] MCH (RBC) [Entitic mass] 28.6 pg Normal 27.0-32.0 [facility] Comment on above: Performed By: #### L 500.2500, L100.0100, L501.2300, L500.4100, L501.5200 ####[facility] [address] [place], [address] MCHC (RBC) [Mass/Vol] 31.6 g/dL Low 32-36 [facility] Comment on above: Performed By: #### L 500.2500, L100.0100, L501.2300, L500.4100, L501.5200 ####[facility] [address] [place], [address] MCV (RBC) [Entitic vol] 90.7 fL Normal 80-94 [facility] Comment on above: Performed By: #### L 500.2500, L100.0100, L501.2300, L500.4100, L501.5200 ####[facility] [address] [place], [address] Monocytes/100 WBC (Bld) 6.7 % Normal 0-10 [facility] Comment on above: Performed By: #### L 500.2500, L100.0100, L501.2300, L500.4100, L501.5200 ####[facility] [address] [place], [address] Neutrophils/100 WBC (Bld) 87.2 % High 47-70 [facility] Comment on above: Performed By: #### L 500.2500, L100.0100, L501.2300, L500.4100, L501.5200 ####[facility] [address] [place], [address] Nucleated RBC (Bld) [#/Vol] 0 10*3/uL Normal 0-5 [facility] Comment on above: Performed By: #### L 500.2500, L100.0100, L501.2300, L500.4100, L501.5200 ####[facility] [address] [place], [address] Platelet mean volume (Bld) [Entitic vol] 10.2 fL Normal 6.2-12.0 [facility] Comment on above: Performed By: #### L 500.2500, L100.0100, L501.2300, L500.4100, L501.5200 ####[facility] [address] [place], [address] Platelets (Bld) [#/Vol] 309 10*3/uL Normal 150-450 [facility] Comment on above: Performed By: #### L 500.2500, L100.0100, L501.2300, L500.4100, L501.5200 ####[facility] [address] [place], [address] RBC (Bld) [#/Vol] 4.96 10*6/uL Normal 4.6-6.2 [facility] Comment on above: Performed By: #### L 500.2500, L100.0100, L501.2300, L500.4100, L501.5200 ####[facility] [address] [place], [address] RDW SD 44.0 fl High 35.1-43.9 [facility] Comment on above: Performed By: #### L 500.2500, L100.0100, L501.2300, L500.4100, L501.5200 ####[facility] [address] [place], [address] WBC (Bld) [#/Vol] 12.3 10*3/uL High 4.4-11.0 [facility] Comment on above: Performed By: #### L 500.2500, L100.0100, L501.2300, L500.4100, L501.5200 ####[facility] [address] [place], [address] Calculated very low density lipoprotein (VLDL) cholesterol measurementOrdered By: Ty Cunningham on 09-05-2024 Calculated very low density lipoprotein (VLDL) cholesterol measurement 11 mg/dL 5-40 [facility] VLDL Cholesterol 11 mg/dL 5-40 [facility] Electrocardiogram reportOrde red By: Ankit Bliss on 09-05-2024 EKG study [facility] [address] [place] [address] 12 Lead EKG 09/03/24 1323 MR#: [id number] Acct: [id number] Name: EDUARD RUSSELL Rep #: : [id number] From: Ankit Bliss MD Attending Dr: Dr. Ty Cunningham MD Status: ADM IN Ordering Dr: Dano Shea DO Date: 0 09/03/24 Location: [facility] Sex: M C Admitted: 09/03/24 Test Reason : SOB Blood Pressure : */* mmHG Vent. Rate : 89 BPM Atrial Rate : 89 BPM P-R Int : 220 ms QRS Dur : 94 ms QT Int : 364 ms P-R-T Axes : 41 -49 16 degrees QTcB Int : 442 ms Sinus rhythm with 1st degree A-V block with Premature atrial complexes Left axis deviation Inferior infarct , age undetermined Abnormal ECG Confirmed by MARK RODRIGUEZ, ANKIT ([id number]), story editor VILLA GÓMEZ ([id number]) on 09/05/2024 8:27:17 AM Referred By: Confirmed By: ANKIT BLISS MD 09/05/2427 Date _ Ankit Bliss MD CC: Dr. Thiago Morgan MD; Dr. Ty Cunningham MD; Dr. aDno Shea DO ~ Signed [facility] Work Phone: Gram Stainon 09-05-2024 GS List Antibiotics [place] 48 Hours? zithroma Acceptable Specimen? Yes (<25 Epithelial cells per/lpf) Gram Stain 3+ Gram positive cocci 4+ White Blood Cells No Epithelial cells Normal [facility] Comment on above: Performed By: #### M 100.2400, M100.2000 ####[facility] [address], [address] LDL calc ser/plasOrdered By: Ty Cunningham on 09-05-2024 Cholesterol in LDL [Mass/Vol] 109 mg/dL [facility] Comment on above: Gvgvyjfkbw=016-422 m g/dL & Higher Whlh=478 mg/dL or greater LDL Cholesterol, Calculated 109 mg/dL [facility] Comment on above: Ksginweflv=412-025 m g/dL & Higher Xloc=709 mg/dL or greater Lipid Profileon 09-05-2024 CHOL:HDL 3.06 Normal [facility] Comment on above: Performed By: #### L 500.2500, L100.0100, L501.2300, L500.4100, L501.5200 ####[facility] [address] [place], [address] Cholesterol [Mass/Vol] 178 mg/dL Normal <=200 [facility] Comment on above: Result Comment: Chol esterol level, Desirable <200 mg/dLBorderline high cholesterol 200-239 mg/dLHigh cholesterol >=240 mg/dLRecommendations of the NCEP Adult Treatment Panel for thefollowing risk-cutoff thresholds for the [place] [employer]. Performed By: #### L 500.2500, L100.0100, L501.2300, L500.4100, L501.5200 ####[facility] [address] [place], [address] Cholesterol in HDL [Mass/Vol] 58 mg/dL Normal [facility] Comment on above: Result Comment: Isela onal Cholesterol Education Program (NCEP) guidelines:<40 mg/dL: Low HDL-cholesterol (major risk factor for CHD)>= 60 mg/dL: High HDL-cholesterol (negative risk factor forCHD)HDL-cholesterol is affected by a number of factors, e.g.smoking, exercise, hormones, sex and age. Performed By: #### L 500.2500, L100.0100, L501.2300, L500.4100, L501.5200 ####[facility] [address] [place], [address] Cholesterol in LDL [Mass/Vol] 109 mg/dL Normal [facility] Comment on above: Result Comment: Bord clqtaw=007-673 mg/dL Higher Moia=764 mg/dL or greater Performed By: #### L 500.2500, L100.0100, L501.2300, L500.4100, L501.5200 ####[facility] [address] [place], [address] Cholesterol in VLDL [Mass/Vol] 11 mg/dL Normal 5-40 [facility] Comment on above: Performed By: #### L 500.2500, L100.0100, L501.2300, L500.4100, L501.5200 ####[facility] [address] [place], [address] Triglyceride [Mass/Vol] 57 mg/dL Normal [facility] Comment on above: Result Comment: The drugs N-Acetylcysteine and Metamizole may falselydepress this assay.Normal range: <150 mg/dLBorderline High: 150-199 mg/dLHigh: 200-499 mg/dLVery High: >500 mg/dL Performed By: #### L 500.2500, L100.0100, L501.2300, L500.4100, L501.5200 ####[facility] [address] [place], [address] Magnesiumon 09-05-2024 Magnesium [Mass/Vol] 2.2 mg/dL Normal 1.5-2.2 [facility] Comment on above: Performed By: #### L 500.2500, L100.0100, L501.2300, L500.4100, L501.5200 ####[facility] [address] [place], [address] Magnesium (Unsp spec) [Mass/ Vol]Ordered By: Ty Cunningham on 09-05-2024 Magnesium [Mass/Vol] 2.2 mg/dL 1.5-2.2 [facility] Magnesium measurement (mass/ volume)Ordered By: Ty Cunningham on 09-05-2024 Magnesium (Unsp spec) [Mass/Vol] 2.2 mg/dL 1.5-2.2 [facility] Phosphoruson 09-05-2024 Phosphate [Mass/Vol] 3.7 mg/dL Normal 2.7-4.5 [facility] Comment on above: Performed By: #### L 500.2500, L100.0100, L501.2300, L500.4100, L501.5200 ####[facility] [address], [address] Screening total cholesterol/ high density lipoprotein (HDL) cholesterol ratioOrdered By: Ty Cunningham on 09-05-2024 Cholesterol.total/Choles terol in HDL [Mass ratio] 3.06 {ratio} [facility] Serum or plasma cholesterol in HDL measurement (mass/volume)Ordered By: Ty Cunningham on 09-05-2024 Cholesterol in HDL [Mass/Vol] 58 mg/dL >40 [facility] Comment on above: National Cholesterol Education Program (NCEP) guidelines:<40 mg/dL: Low HDL-cholesterol (major risk factor for CHD)>= 60 mg/dL: High HDL-cholesterol (negative risk factor for CHD)HDL-cholesterol is affected by a number of factors, e.g. smoking, exercise, hormones, sex and age. Serum or plasma cholesterol measurement (mass/volume)Ordered By: Ty Cunningham on 09-05-2024 Cholesterol [Mass/Vol] 178 mg/dL <201 [facility] Comment on above: Cholesterol level, D esirable <200 mg/dLBorderline high cholesterol 200-239 mg/dLHigh cholesterol >=240 mg/dLRecommendations of the NCEP Adult Treatment Panel for the following risk-cutoff thresholds for the [place] population. Serum phosphorus measurement Ordered By: Ty Cunningham on 09-05-2024 Phosphorus Level 3.7 mg/dL 2.7-4.5 [facility] Triglycerides measurementOrd ered By: Ty Cunningham on 09-05-2024 Triglyceride [Mass/Vol] 57 mg/dL <199 [facility] Comment on above: The drugs N-Acetylcy steine and Metamizole may falsely depress this assay. Normal range: <150 mg/dLBorderline High: 150-199 mg/dLHigh: 200-499 mg/dLVery High: >500 mg/dL Basic Metabolic Profile (BMP )on 09-04-2024 BUN/CRE 16.2 RATIO Normal 10-20 [facility] Comment on above: Performed By: #### L 500.2500, L501.9520, L501.09565, L506.0400, L100.0100 ####[facility] [address] [place], [address] Calcium [Mass/Vol] 9.2 mg/dL Normal 7.6-11.0 [facility] Comment on above: Performed By: #### L 500.2500, L501.9520, L501.94074, L506.0400, L100.0100 ####[facility] [address] [place], [address] Chloride [Moles/Vol] 100 mmol/L Normal 98-108 [facility] Comment on above: Performed By: #### L 500.2500, L501.9520, L501.22101, L506.0400, L100.0100 ####[facility] [address] [place], [address] CO2 [Moles/Vol] 28.0 mmol/L Normal 21.0-32.0 [facility] Comment on above: Performed By: #### L 500.2500, L501.9520, L501.90156, L506.0400, L100.0100 ####[facility] [address] [place], [address] Creatinine [Mass/Vol] 0.54 mg/dL Low 0.70-1.20 [facility] Comment on above: Performed By: #### L 500.2500, L501.9520, L501.24971, L506.0400, L100.0100 ####[facility] [address] [place], [address] ECRCL 95.00 ml/min Normal 50-250 [facility] Comment on above: Performed By: #### L 500.2500, L501.9520, L501.58015, L506.0400, L100.0100 ####[facility] [address] [place], [address] GAP 9 Normal 5-15 [facility] Comment on above: Performed By: #### L 500.2500, L501.9520, L501.84352, L506.0400, L100.0100 ####[facility] [address] [place], [address] GFR/1.73 sq M.predicted among non-blacks MDRD (S/P/Bld) [Vol rate/Area] 103 mL/min/{1.73_m2} Normal >60 [facility] Comment on above: Result Comment: mL/m in/1.73m2 CKD-EPI Creatinine Equation (2020) Performed By: #### L 500.2500, L501.9520, L501.35995, L506.0400, L100.0100 ####[facility] [address] [place], [address] Glucose [Mass/Vol] 130 mg/dL High 70-99 [facility] Comment on above: Performed By: #### L 500.2500, L501.9520, L501.54289, L506.0400, L100.0100 ####[facility] [address] [place], [address] Potassium [Moles/Vol] 4.7 mmol/L Normal 3.3-5.1 [facility] Comment on above: Performed By: #### L 500.2500, L501.9520, L501.96343, L506.0400, L100.0100 ####[facility] [address] [place], [address] Sodium [Moles/Vol] 138 mmol/L Normal 133-145 [facility] Comment on above: Performed By: #### L 500.2500, L501.9520, L501.22437, L506.0400, L100.0100 ####[facility] [address] [place], [address] Urea nitrogen [Mass/Vol] 9 mg/dL Normal 4-19 [facility] Comment on above: Performed By: #### L 500.2500, L501.9520, L501.03921, L506.0400, L100.0100 ####[facility] [address] [place], [address] CBC W/Diff, Automatedon 03-3 -2024 Absolute Lymph 0.55 X10 3/uL Low 0.83-4.51 [facility] Comment on above: Performed By: #### L 500.2500, L501.9520, L501.44406, L506.0400, L100.0100 ####[facility] [address] [place], [address] Absolute Neut 7.6 X10 3/uL Normal 2.0-7.7 [facility] Comment on above: Performed By: #### L 500.2500, L501.9520, L501.21268, L506.0400, L100.0100 ####[facility] [address] [place], [address] Basophils/100 WBC (Bld) 0.1 % Normal 0-1 [facility] Comment on above: Performed By: #### L 500.2500, L501.9520, L501.76656, L506.0400, L100.0100 ####[facility] [address] [place], [address] Eosinophils/100 WBC (Bld) 0.0 % Normal 0-5 [facility] Comment on above: Performed By: #### L 500.2500, L501.9520, L501.66165, L506.0400, L100.0100 ####[facility] [address] [place], [address] Erythrocyte distribution width (RBC) [Ratio] 13.2 % Normal 11.6-14.6 [facility] Comment on above: Performed By: #### L 500.2500, L501.9520, L501.00802, L506.0400, L100.0100 ####[facility] [address] [place], [address] Hematocrit (Bld) [Volume fraction] 45.7 % Normal 40-54 [facility] Comment on above: Performed By: #### L 500.2500, L501.9520, L501.43744, L506.0400, L100.0100 ####[facility] [address] [place], [address] Hemoglobin (Bld) [Mass/Vol] 14.2 g/dL Normal 13.0-16.5 [facility] Comment on above: Performed By: #### L 500.2500, L501.9520, L501.50765, L506.0400, L100.0100 ####[facility] [address] [place], [address] IG% 0.600 Normal 0.0-0.9 [facility] Comment on above: Result Comment: IG% - Immature Granulocytes (promyelocytes, myelocytes andmetamyelocytes) > 1% indicates that a LEFT SHIFT is Present. Performed By: #### L 500.2500, L501.9520, L501.95769, L506.0400, L100.0100 ####[facility] [address] [place], [address] Lymphocytes/100 WBC (Bld) 6.4 % Low 19-41 [facility] Comment on above: Performed By: #### L 500.2500, L501.9520, L501.27808, L506.0400, L100.0100 ####[facility] [address] [place], [address] MCH (RBC) [Entitic mass] 28.2 pg Normal 27.0-32.0 [facility] Comment on above: Performed By: #### L 500.2500, L501.9520, L501.49179, L506.0400, L100.0100 ####[facility] [address] [place], [address] MCHC (RBC) [Mass/Vol] 31.1 g/dL Low 32-36 [facility] Comment on above: Performed By: #### L 500.2500, L501.9520, L501.92002, L506.0400, L100.0100 ####[facility] [address] [place], [address] MCV (RBC) [Entitic vol] 90.9 fL Normal 80-94 [facility] Comment on above: Performed By: #### L 500.2500, L501.9520, L501.21254, L506.0400, L100.0100 ####[facility] [address] [place], [address] Monocytes/100 WBC (Bld) 4.2 % Normal 0-10 [facility] Comment on above: Performed By: #### L 500.2500, L501.9520, L501.66995, L506.0400, L100.0100 ####[facility] [address] [place], [address] Neutrophils/100 WBC (Bld) 88.7 % High 47-70 [facility] Comment on above: Performed By: #### L 500.2500, L501.9520, L501.42463, L506.0400, L100.0100 ####[facility] [address] [place], [address] Nucleated RBC (Bld) [#/Vol] 0 10*3/uL Normal 0-5 [facility] Comment on above: Performed By: #### L 500.2500, L501.9520, L501.34849, L506.0400, L100.0100 ####[facility] [address] [place], [address] Platelet mean volume (Bld) [Entitic vol] 10.0 fL Normal 6.2-12.0 [facility] Comment on above: Performed By: #### L 500.2500, L501.9520, L501.35885, L506.0400, L100.0100 ####[facility] [address] [place], [address] Platelets (Bld) [#/Vol] 305 10*3/uL Normal 150-450 [facility] Comment on above: Performed By: #### L 500.2500, L501.9520, L501.81083, L506.0400, L100.0100 ####[facility] [address] [place], [address] RBC (Bld) [#/Vol] 5.03 10*6/uL Normal 4.6-6.2 [facility] Comment on above: Performed By: #### L 500.2500, L501.9520, L501.32713, L506.0400, L100.0100 ####[facility] [address] [place], [address] RDW SD 43.8 fl Normal 35.1-43.9 [facility] Comment on above: Performed By: #### L 500.2500, L501.9520, L501.55877, L506.0400, L100.0100 ####[facility] [address] [place], [address] WBC (Bld) [#/Vol] 8.5 10*3/uL Normal 4.4-11.0 [facility] Comment on above: Performed By: #### L 500.2500, L501.9520, L501.43323, L506.0400, L100.0100 ####[facility] [address] [place], [address] Echocardiogram study reportO rdered By: Ankit Bliss on 09-04-2024 Study report [facility] [address] [place] [address] Echo Complete W/ Contrast 09/04/24 0940 MR#: [id number] Acct: [id number] Name: EDUARD RUSSELL Rep #:[id number] : 1945 79 From: Ankit Harris Attending Dr: Dr. Ty Cunningham MD Status: ADM IN Ordering Dr: Vibha Matias MD Date: Location: U Sex: M C Admitted: 09/03/24 Reason For Study Reason For Study: PLEURAL EFFUSION Procedure This was a 2D Doppler, Color Flow transthoracic echocardiogram. The study was technically difficult. Exam performed portable in patient room. Left Ventricle Normal LV size. Left ventricular systolic function is normal. The left ventricular ejection fraction is 60 %. No regional wall motion abnormalities noted. Right Ventricle Normal RV size. Normal systolic function. Atria Normal left atrium. Normal right atrium. Mitral Valve Normal mitral valve. Tricuspid Valve Normal tricuspid valve. Aortic Valve Trisinus/trileaflet aortic valve. Mild focal aortic valve calcification. Great Vessels Normal aortic root. Pericardium/Pleural No pericardial effusion. Medication Diluted definity 1ml given slow IV push to enhance endocardial definition. MMode/2D Measurements & Calculations LVIDd: 5.0 cm IVSd: 1.0 cm Ao root diam: 3.0 cm LVIDs: 3.4 cm LVPWd: 0.97 cm RVDd: 4.2 cm FS: 32.5 % LAV(MOD-bp): 42.2 ml LVAd ap4: 34.6 cm2 SV(MOD-sp4): 69.8 ml LAV(MOD-bp) Indexed: 19.0 ml/m2 LVLd ap4: 8.8 cm SI(MOD-sp4): 31.4 ml/m2 LAV(MOD-sp2): 42.0 ml EDV(MOD-sp4): 114.0 ml LAV(MOD-sp4): 42.1 ml EDV(sp4-el): 114.9 ml LVAs ap4: 19.0 cm2 LVLs ap4: 7.4 cm ESV(MOD-sp4): 44.2 ml ESV(sp4-el): 41.4 ml EF(MOD-sp4): 61.2 % EF(sp4-el): 63.9 % SV(sp4-el): 73.5 ml LA A4 area: 16.9 cm2 LA dimension(2D): 3.2 cm RA A4 area: 16.8 cm2 TAPSE: 2.2 cm Time Measurements MV dec time: 0.20 sec Doppler Measurements & Calculations MV E max gilmer: 112.6 cm/sec Lat Peak E' Gilmer: 13.4 cm/sec Med Peak E' Gilmer: 9.9 cm/sec MV A max gilmer: 131.8 cm/sec E/E' lat: 8.4 E/E' med: 11.4 MV E/A: 0.85 Ao V2 max: 191.0 cm/sec LV V1 max: 123.2 cm/sec PA V2 max: 121.6 cm/sec Ao max P.6 mmHg LV V1 max P.1 mmHg ECHO/Echo Complete W/ Contrast Interpretation Summary Normal LV size. Left ventricular systolic function is normal. The left ventricular ejection fraction is 60 %. Contrast injection was performed. ___ Ordering Physician: Vibha Matias Referring Physician: THIAGO MORGAN Performed By: Mariajose Cardozo RDCS 09/04/24 1145 Date _ Ankit Bliss MD CC: Dr. Thiago Morgan MD; Dr. Ty Cunningham MD; Dr. Vibha Matias MD ~ Date Dictated: 03/31/25 0940 Date Transcribed: 09/04/24 1145 It Architecture Consultant: Signed [facility] Work Phone: Free T3on 09-04-2024 Free T3 [Mass/Vol] 2.0 pg/mL Low 2.18-3.98 [facility] Comment on above: Performed By: #### L 500.2500, L501.9520, L501.15880, L506.0400, L100.0100 ####[facility] [address] [place], [place], [id number] Free [id number] By: Vibha clevelande on 09-04-2024 Free T3 [Mass/Vol] 2.0 pg/mL Low 2.18-3.98 [facility] Free Triiodothyronine (T3) pg/dL 2.0 pg/mL Low 2.18-3.98 [facility] Gram stainOrdered By: Vibha Matias on 09-04-2024 Microscopic observation Gram stain Nom (Unsp spec) [facility] Microbial respiratory cultur eOrdered By: Vibha Matias on 09-04-2024 Microorganism identified Cx Nom (Unsp spec) Streptococcus pneumoniae Abnormal [facility] Microorganism identified Cx Nom (Unsp spec) Haemophilus influenzae Abnormal [facility] Microorganism identified Cx Nom (Unsp spec)Ordered By: Vibha Matias on 09-04-2024 Respiratory Culture Streptococcus pneumoniae Abnormal [facility] Respiratory Culture Haemophilus influenzae Abnormal [facility] T4 Free Directon 09-04-2024 T4 FREE DIRECT 1.10 ng/dL Normal 0.76-1.46 [facility] Comment on above: Performed By: #### L 500.2500, L501.9520, L501.02759, L506.0400, L100.0100 ####[facility] [address] [place], [place], [id number] T4 freeOrdered By: Vibha clevelande on 09-04-2024 Free T4 [Mass/Vol] 1.10 ng/dL 0.76-1.46 [facility] TSH DL <= 0.005 mIU/L QnOrde red By: Vibha Matias on 09-04-2024 Thyroid Stimulating Hormone (TSH) 0.654 uIU/mL 0.300-4.20 0 [facility] TSH Qn 0.654 uIU/mL 0.300-4.20 0 [facility] Thyroid Stim Hormone (TSH)on 09-04-2024 TSH 0.654 uIU/mL Normal 0.300-4.20 0 [facility] Comment on above: Performed By: #### L 500.2500, L501.9520, L501.30789, L506.0400, L100.0100 ####[facility] [address] [place], [address] 12 Lead EKGon 09-03-2024 12 Lead EKG Normal [facility] Absolute neutrophil countOrd ered By: ED PROVIDER on 09-03-2024 Neutrophils (Bld) [#/Vol] 7.5 10*3/uL 2.0-7.7 [facility] Anion gap in Serum or Plasma Ordered By: ED PROVIDER on 09-03-2024 Anion gap [Moles/Vol] 9 mmol/L 10-19 [facility] BUN/creatinine ratioOrdered By: ED PROVIDER on 09-03-2024 Urea nitrogen/Creatinine [Mass ratio] 13.1 mg/mg 03-26 [facility] Base excess Calc (BldV) [Mol es/Vol]Ordered By: Dano Shea on 09-03-2024 Venous Blood Base Excess 10 mmol/L High -1.0-3.5 [facility] Basic Metabolic Profile (BMP )on 09-03-2024 BUN/CRE 13.1 RATIO Normal 03-26 [facility] Comment on above: Performed By: #### L 100.0100, L500.2500 ####[facility] [address] [place], [address] Calcium [Mass/Vol] 9.1 mg/dL Normal 7.6-11.0 [facility] Comment on above: Performed By: #### L 100.0100, L500.2500 ####[facility] [address], [address] Chloride [Moles/Vol] 99 mmol/L Normal 98-108 [facility] Comment on above: Performed By: #### L 100.0100, L500.2500 ####[facility] [address] [place], [address] CO2 [Moles/Vol] 30.9 mmol/L Normal 21.0-32.0 [facility] Comment on above: Performed By: #### L 100.0100, L500.2500 ####[facility] [address] [place], [address] Creatinine [Mass/Vol] 0.65 mg/dL Low 0.70-1.20 [facility] Comment on above: Performed By: #### L 100.0100, L500.2500 ####[facility] [address] [place], [address] ECRCL 95.10 ml/min Normal 50-250 [facility] Comment on above: Performed By: #### L 100.0100, L500.2500 ####[facility] [address] [place], [address] GAP 9 Normal 5-15 [facility] Comment on above: Performed By: #### L 100.0100, L500.2500 ####[facility] [address] [place], [address] GFR/1.73 sq M.predicted among non-blacks MDRD (S/P/Bld) [Vol rate/Area] 97 mL/min/{1.73_m2} Normal >60 [facility] Comment on above: Result Comment: mL/m in/1.73m2 CKD-EPI Creatinine Equation (2020) Performed By: #### L 100.0100, L500.2500 ####[facility] [address] [place], [address] Glucose [Mass/Vol] 103 mg/dL High 70-99 [facility] Comment on above: Performed By: #### L 100.0100, L500.2500 ####[facility] [address] [place], [address] Potassium [Moles/Vol] 4.4 mmol/L Normal 3.3-5.1 [facility] Comment on above: Performed By: #### L 100.0100, L500.2500 ####[facility] [address] [place], [address] Sodium [Moles/Vol] 139 mmol/L Normal 133-145 [facility] Comment on above: Performed By: #### L 100.0100, L500.2500 ####[facility] [address] [place], [address] Urea nitrogen [Mass/Vol] 8 mg/dL Normal 4-19 [facility] Comment on above: Performed By: #### L 100.0100, L500.2500 ####[facility] [address] [place], [address] Basophil percentageOrdered B y: ED PROVIDER on 09-03-2024 Basophils/100 WBC (Bld) 0.7 % 0-1 [facility] CBC W/Diff, Automatedon 08-07 Absolute Lymph 0.91 X10 3/uL Normal 0.83-4.51 [facility] Comment on above: Performed By: #### L 100.0100, L500.2500 ####[facility] [address] [place], [address] Absolute Neut 7.5 X10 3/uL Normal 2.0-7.7 [facility] Comment on above: Performed By: #### L 100.0100, L500.2500 ####[facility] [address] [place], [address] Basophils/100 WBC (Bld) 0.7 % Normal 0-1 [facility] Comment on above: Performed By: #### L 100.0100, L500.2500 ####[facility] [address] [place], [address] Eosinophils/100 WBC (Bld) 3.8 % Normal 0-5 [facility] Comment on above: Performed By: #### L 100.0100, L500.2500 ####[facility] [address] [place], [address] Erythrocyte distribution width (RBC) [Ratio] 13.4 % Normal 11.6-14.6 [facility] Comment on above: Performed By: #### L 100.0100, L500.2500 ####[facility] [address] [place], [address] Hematocrit (Bld) [Volume fraction] 46.0 % Normal 40-54 [facility] Comment on above: Performed By: #### L 100.0100, L500.2500 ####[facility] [address] [place], [address] Hemoglobin (Bld) [Mass/Vol] 14.5 g/dL Normal 13.0-16.5 [facility] Comment on above: Performed By: #### L 100.0100, L500.2500 ####[facility] [address] [place], [address] IG% 0.400 Normal 0.0-0.9 [facility] Comment on above: Result Comment: IG% - Immature Granulocytes (promyelocytes, myelocytes andmetamyelocytes) > 1% indicates that a LEFT SHIFT is Present. Performed By: #### L 100.0100, L500.2500 ####[facility] [address] [place], [address] Lymphocytes/100 WBC (Bld) 9.5 % Low 19-41 [facility] Comment on above: Performed By: #### L 100.0100, L500.2500 ####[facility] [address] [place], [address] MCH (RBC) [Entitic mass] 28.9 pg Normal 27.0-32.0 [facility] Comment on above: Performed By: #### L 100.0100, L500.2500 ####[facility] [address] [place], [address] MCHC (RBC) [Mass/Vol] 31.5 g/dL Low 32-36 [facility] Comment on above: Performed By: #### L 100.0100, L500.2500 ####[facility] [address] [place], [address] MCV (RBC) [Entitic vol] 91.6 fL Normal 80-94 [facility] Comment on above: Performed By: #### L 100.0100, L500.2500 ####[facility] [address] [place], [address] Monocytes/100 WBC (Bld) 7.5 % Normal 0-10 [facility] Comment on above: Performed By: #### L 100.0100, L500.2500 ####[facility] [address] [place], [address] Neutrophils/100 WBC (Bld) 78.1 % High 47-70 [facility] Comment on above: Performed By: #### L 100.0100, L500.2500 ####[facility] [address] [place], [address] Nucleated RBC (Bld) [#/Vol] 0 10*3/uL Normal 0-5 [facility] Comment on above: Performed By: #### L 100.0100, L500.2500 ####[facility] [address] [place], [address] Platelet mean volume (Bld) [Entitic vol] 9.8 fL Normal 6.2-12.0 [facility] Comment on above: Performed By: #### L 100.0100, L500.2500 ####[facility] [address] [place], [address] Platelets (Bld) [#/Vol] 274 10*3/uL Normal 150-450 [facility] Comment on above: Performed By: #### L 100.0100, L500.2500 ####[facility] [address] [place], [address] RBC (Bld) [#/Vol] 5.02 10*6/uL Normal 4.6-6.2 [facility] Comment on above: Performed By: #### L 100.0100, L500.2500 ####[facility] [address] [place], [address] RDW SD 45.1 fl High 35.1-43.9 [facility] Comment on above: Performed By: #### L 100.0100, L500.2500 ####[facility] [address] [place], [address] WBC (Bld) [#/Vol] 9.6 10*3/uL Normal 4.4-11.0 [facility] Comment on above: Performed By: #### L 100.0100, L500.2500 ####[facility] [address] [place], [address] CO2 (BldV) [Moles/Vol]Ordere d By: Dano Shea on 09-03-2024 CO2 [Moles/Vol] 38 mmol/L High 23-33 [facility] CO2 (BldV) [Partial pressure ]Ordered By: Dano Shea on 09-03-2024 Bed Mix Venous Bld PCO2 at Pat Temp 65.6 mmHg High 41-51 [facility] Carbon dioxide, total [Moles /volume] in Central venous bloodOrdered By: ED PROVIDER on 09-03-2024 CO2 [Moles/Vol] 30.9 mmol/L 21.0-32.0 [facility] Chest PA and Lateralon 09-03 Chest PA and Lateral Normal [facility] Chest without Contraston Chest without Contrast Normal [facility] Chloride assayOrdered By: ED PROVIDER on 09-03-2024 Chloride [Moles/Vol] 99 mmol/L 98-108 [facility] Determination of fraction of inspired oxygenOrdered By: Dano Shea on 09-03-2024 Blood Gas Oxygen Percent 2.0 [facility] Echo Complete W/ Contraston 09-03-2024 Echo Complete W/ Contrast Normal [facility] Emergency Department Summary on 09-03-2024 Emergency Department Summary Normal [facility] Eosinophil percentageOrdered By: ED PROVIDER on 09-03-2024 Eosinophils/100 WBC (Bld) 3.8 % 0-5 [facility] Erythrocyte distribution wid th ratioOrdered By: ED PROVIDER on 09-03-2024 Erythrocyte distribution width (RBC) [Ratio] 13.4 % 11.6-14.6 [facility] Erythrocyte distribution wid th standard deviationOrdered By: ED PROVIDER on 09-03-2024 Erythrocyte distribution width (RBC) [Entitic vol] 45.1 fL High 35.1-43.9 [facility] Estimation of creatinine carlos aranceOrdered By: ED PROVIDER on 09-03-2024 Estimated Creatinine Clearance Calc 95.10 ml/min 50-250 [facility] GFR/1.73 sq M.predicted ekn g non-blacks MDRD (S/P/Bld) [Vol rate/Area]Ordered By: ED PROVIDER on 09-03-2024 Estimated GFR (MDRD) Non-Af Amer 97 >60 [facility] Comment on above: mL/min/1.73m2 CKD-EP I Creatinine Equation (2020) H AND P Exam - Hospitaliston 09-03-2024 H&P Exam - Hospitalist Normal [facility] Hematocrit Auto (Bld) [Volum e fraction]Ordered By: ED PROVIDER on 09-03-2024 Hematocrit (Bld) [Volume fraction] 46.0 % 40-54 [facility] Hemoglobin measurementOrdere d By: ED PROVIDER on 09-03-2024 Hemoglobin (Bld) [Mass/Vol] 14.5 g/dL 13.0-16.5 [facility] Immature granulocytes/100 WB C Auto (Bld)Ordered By: ED PROVIDER on 09-03-2024 Immature granulocytes/100 WBC (Bld) 0.400 % 0.0-0.9 [facility] Comment on above: IG% - Immature Granu locytes (promyelocytes, myelocytes and metamyelocytes) > 1% indicates that a LEFT SHIFT is Present. Influenza virus A and B and SARS-CoV-2 (COVID-19) and Respiratory syncytial virus RNAOrdered By: Vibha Matias on 09-03-2024 SARS-CoV-2 (COVID-19) RNA LEIGHTON+probe Ql (Unsp spec) [facility] L501.4021on 09-03-2024 Trop T High Sen 12 ng/L Normal <=22 [facility] Comment on above: Performed By: #### L 501.4021 ####[facility] [address] [place], [address] L503.7505on 09-03-2024 Natriuretic peptide B (Bld) [Mass/Vol] 267 pg/mL Normal <=1800 [facility] Comment on above: Result Comment: Hear t Failure Unlikely: < 300 pg/mLHeart Failure Likely< 50 Years: > 450 pg/mL50-75 Years: > 900 pg/mL>75 Years: > 1800 pg/mL Performed By: #### L 503.7505 ####[facility] [address] [place], [address] Laboratory - Chemistry and C hemistry - challengeOrdered By: Dano Shea on 09-03-2024 Natriuretic peptide B (Bld) [Mass/Vol] 267 pg/mL <1800 [facility] Comment on above: Heart Failure Unlike ly: < 300 pg/mLHeart Failure Likely< 50 Years: > 450 pg/mL50-75 Years: > 900 pg/mL>75 Years: > 1800 pg/mL Lymphocytes Auto (Unsp spec) [#/Vol]Ordered By: ED PROVIDER on 09-03-2024 Lymphocytes (Bld) [#/Vol] 0.91 10*3/uL 0.83-4.51 [facility] Lymphocytes/100 WBC Auto (Un sp spec)Ordered By: ED PROVIDER on 09-03-2024 Lymphocytes/100 WBC (Bld) 9.5 % Low 19-41 [facility] M100.678on 09-03-2024 M100.678 Pending SARS-CoV-2 (COVID 19) Negative INFLUENZA A Negative INFLUENZA B Negative RSV PCR Negative Normal [facility] Comment on above: Performed By: #### M 100.678 ####[facility] [address] [place], [address] MCV (mean corpuscular volume ) determinationOrdered By: ED PROVIDER on 09-03-2024 MCV (RBC) [Entitic vol] 91.6 fL 80-94 [facility] Mean corpuscular hemoglobin (MCH) determinationOrdered By: ED PROVIDER on 09-03-2024 MCH (RBC) [Entitic mass] 28.9 pg 27.0-32.0 [facility] Mean corpuscular hemoglobin concentration (MCHC) determinationOrdered By: ED PROVIDER on 09-03-2024 MCHC (RBC) [Mass/Vol] 31.5 g/dL Low 32-36 [facility] Mean platelet volume determi nationOrdered By: ED PROVIDER on 09-03-2024 Platelet mean volume (Bld) [Entitic vol] 9.8 fL 6.2-12.0 [facility] Monocyte percentageOrdered B y: ED PROVIDER on 09-03-2024 Monocytes/100 WBC (Bld) 7.5 % 0-10 [facility] Neutrophil percentageOrdered By: ED PROVIDER on 09-03-2024 Neutrophils/100 WBC (Bld) 78.1 % High 47-70 [facility] No Panel InformationOrdered By: Dano Shea on 09-03-2024 Blood Gas Sample Site Not entered [facility] Blood Gas Specimen Type GABRIEL [facility] Oxygen Delivery Device Cannula [facility] GABRIEL [facility] Not entered [facility] Cannula [facility] 267 pg/mL <1800 [facility] No Panel InformationOrdered By: Mary Sterling on 09-03-2024 Troponin T High Sensitivity 12 ng/L <22 [facility] 12 ng/L <22 [facility] Nucleated red blood cell per centageOrdered By: ED PROVIDER on 09-03-2024 Nucleated RBC/100 WBC (Bld) [Ratio] 0 % 0-5 [facility] Oxygen (BldV) [Partial press ure]Ordered By: Dano Shea on 09-03-2024 Venous Blood Partial Pressure O2 46 mmHg High 25-40 [facility] Platelet countOrdered By: ED PROVIDER on 09-03-2024 Platelets (Bld) [#/Vol] 274 10*3/uL 150-450 [facility] Potassium (Unsp spec) [Mass/ Vol]Ordered By: ED PROVIDER on 09-03-2024 Potassium [Moles/Vol] 4.4 mmol/L 3.3-5.1 [facility] RBC Auto (Bld) [#/Vol]Ordere d By: ED PROVIDER on 09-03-2024 RBC (Bld) [#/Vol] 5.02 10*6/uL 4.6-6.2 [facility] RESPIRATORY PANEL MOLECULARo n 09-03-2024 RP PANEL Normal [facility] Comment on above: Performed By: #### M 100.638 ####[facility] [address] [place], [place], [address] Respiratory pathogens DNA an d RNA panel LEIGHTON+probe (Resp)Ordered By: Vibha Matias on 09-03-2024 Respiratory Panel (PCR) [facility] Respiratory pathogens detect ion panel by molecular detection methodOrdered By: Vibha Matias on 09-03-2024 Respiratory pathogens DNA and RNA panel LEIGHTON+probe (Resp) [facility] Serum creatinine measurement (mass/volume)Ordered By: ED PROVIDER on 09-03-2024 Creatinine [Mass/Vol] 0.65 mg/dL Low 0.70-1.20 [facility] Serum glucose measurement (m ass/volume)Ordered By: ED PROVIDER on 09-03-2024 Glucose [Mass/Vol] 103 mg/dL High 70-99 [facility] Serum or plasma calcium anitra urement (mass/volume)Ordered By: ED PROVIDER on 09-03-2024 Calcium [Mass/Vol] 9.1 mg/dL 7.6-11.0 [facility] Serum or plasma urea nitroge n measurement (mass/volume)Ordered By: ED PROVIDER on 09-03-2024 Urea nitrogen [Mass/Vol] 8 mg/dL 4-19 [facility] Sodium levelOrdered By: ED P POPPYDER on 09-03-2024 Sodium [Moles/Vol] 139 mmol/L 133-145 [facility] Venous Blood Gason 5 Blood Gas Type GABRIEL Normal [facility] Comment on above: Performed By: #### L 9000.0810 ####[facility] [address] [place], [address] CO2 [Moles/Vol] 38 mmol/L High 23-33 [facility] Comment on above: Performed By: #### L 9000.0810 ####[facility] [address] [place], [address] FI02 2.0 Normal [facility] Comment on above: Performed By: #### L 9000.0810 ####[facility] [address] [place], [address] HCO3 (Bld) [Moles/Vol] 36 mmol/L High 22-26 [facility] Comment on above: Performed By: #### L 9000.0810 ####[facility] [address] [place], [address] O2 Delivery Dev Cannula Normal [facility] Comment on above: Performed By: #### L 9000.0810 ####[facility] [address] [place], [address] SITE Not entered [facility] Comment on above: Performed By: #### L 9000.0810 ####[facility] [address] [place], [address] VBG BE 10 mmol/L High -1.0-3.5 [facility] Comment on above: Performed By: #### L 9000.0810 ####[facility] [address] [place], [place], [address] VBG pCO2 65.6 mmHg High 41-51 [facility] Comment on above: Performed By: #### L 9000.0810 ####[facility] [address] [place], [place], [address] VBG pH 7.35 Normal 7.32-7.42 [facility] Comment on above: Performed By: #### L 9000.0810 ####[facility] [address] [place], [address] VBG PO2 46 mmHg High 25-40 [facility] Comment on above: Performed By: #### L 9000.0810 ####[facility] [address] [place], [place], [address] VBG SO2 77 High 50-70 [facility] Comment on above: Performed By: #### L 9000.0810 ####[facility] [address] [place], [place], [address] Venous blood base excess rafael surementOrdered By: Dano Shea on 09-03-2024 Base excess Calc (BldV) [Moles/Vol] 10 mmol/L High -1.0-3.5 [facility] Venous blood bicarbonate rafael surementOrdered By: Dano Shea on 09-03-2024 HCO3 (Bld) [Moles/Vol] 36 mmol/L High 22-26 [facility] Venous blood oxygen saturati on measurementOrdered By: Dano Shea on 09-03-2024 Oxygen saturation in Blood 77 % High 50-70 [facility] Venous blood pH measurementO rdered By: Dano Shea on 09-03-2024 pH (BldV) 7.35 [pH] 7.32-7.42 [facility] Venous blood partial pressur e of carbon dioxide measurementOrdered By: Dano Shea on 09-03-2024 CO2 (BldV) [Partial pressure] 65.6 mm[Hg] High 41-51 [facility] Venous blood partial pressur e of oxygen measurementOrdered By: Dano Shea on 09-03-2024 Oxygen (BldV) [Partial pressure] 46 mm[Hg] High 25-40 [facility] White blood cell (WBC) count Ordered By: ED PROVIDER on 09-03-2024 WBC (Bld) [#/Vol] 9.6 10*3/uL 4.4-11.0 [facility] pH (BldV)Ordered By: Dano Shea on 09-03-2024 Venous Blood pH 7.35 7.32-7.42 [facility] Internal Medicine Office Vis iton 04-25-2024 Internal Medicine Office Visit Normal [facility] CBC W Auto Differential pane l (Bld)on 09-22-2023 Basophils (Bld) [#/Vol] 0.10 10*3/uL Normal <0.11 [facility] Comment on above: Order Comment: Speci men Type: BLOOD SPECIMEN Ordering Facility: [facility] Address: [address] [place] [address] Performed By: #### 5 7021-8 #### [facility] CLIA [id number] [address] [place] [address] [place] Basophils/100 WBC (Bld) 0.9 % Normal [facility] Comment on above: Order Comment: Speci men Type: BLOOD SPECIMEN Ordering Facility: [facility] Address: [address] [place] [address] Performed By: #### 5 7021-8 #### [facility] CLIA [id number] [address] [place] [address] [place] Differential cell count method Nom (Bld) Auto Normal [facility] Comment on above: Order Comment: Speci men Type: BLOOD SPECIMEN Ordering Facility: [facility] Address: [address] [place] [address] Performed By: #### 5 7021-8 #### [facility] CLIA [id number] [address] [place] [address] [place] Eosinophils (Bld) [#/Vol] 0.39 10*3/uL Normal <0.46 [facility] Comment on above: Order Comment: Speci men Type: BLOOD SPECIMEN Ordering Facility: [facility] Address: [address] [place] [address] Performed By: #### 5 7021-8 #### [facility] CLIA [id number] [address] [place] [address] [place] Eosinophils/100 WBC (Bld) 3.3 % Normal [facility] Comment on above: Order Comment: Speci men Type: BLOOD SPECIMEN Ordering Facility: [facility] Address: [address] [place] [address] Performed By: #### 5 7021-8 #### [facility] CLIA [id number] [address] [place] [address] [place] Erythrocyte distribution width (RBC) [Ratio] 12.6 % Normal 11.5-15.0 [facility] Comment on above: Order Comment: Speci men Type: BLOOD SPECIMEN Ordering Facility: [facility] Address: [address] [place] [address] Performed By: #### 5 7021-8 #### [facility] CLIA [id number] [address] [place] [address] [place] Hematocrit (Bld) [Volume fraction] 44.4 % Normal 39.0-51.0 [facility] Comment on above: Order Comment: Speci men Type: BLOOD SPECIMEN Ordering Facility: [facility] Address: [address] [place] [address] Performed By: #### 5 7021-8 #### [facility] CLIA [id number] [address] [place] [address] [place] Hemoglobin (Bld) [Mass/Vol] 14.6 g/dL Normal 13.0-17.0 [facility] Comment on above: Order Comment: Speci men Type: BLOOD SPECIMEN Ordering Facility: [facility] Address: [address] [place] [address] Performed By: #### 5 7021-8 #### [facility] CLIA [id number] [address] [place] [address] [place] Immature granulocytes (Bld) [#/Vol] 0.03 10*3/uL Normal <0.10 [facility] Comment on above: Order Comment: Speci men Type: BLOOD SPECIMEN Ordering Facility: [facility] Address: [address] [place] [address] Performed By: #### 5 7021-8 #### [facility] CLIA [id number] [address] [place] [address] [place] Immature granulocytes/100 WBC (Bld) 0.3 % Normal [facility] Comment on above: Order Comment: Speci men Type: BLOOD SPECIMEN Ordering Facility: [facility] Address: [address] [place] [address] Performed By: #### 5 7021-8 #### [facility] CLIA [id number] [address] [place] [address] [place] Lymphocytes (Bld) [#/Vol] 1.90 10*3/uL Normal 1.00-4.00 [facility] Comment on above: Order Comment: Speci men Type: BLOOD SPECIMEN Ordering Facility: [facility] Address: [address] [place] [address] Performed By: #### 5 7021-8 #### [facility] CLIA [id number] [address] [place] [address] [place] Lymphocytes/100 WBC (Bld) 16.2 % Normal [facility] Comment on above: Order Comment: Speci men Type: BLOOD SPECIMEN Ordering Facility: [facility] Address: [address] [place] [address] Performed By: #### 5 7021-8 #### [facility] CLIA [id number] [address] [place] [address] [place] MCH (RBC) [Entitic mass] 30.1 pg Normal 26.0-34.0 [facility] Comment on above: Order Comment: Speci men Type: BLOOD SPECIMEN Ordering Facility: [facility] Address: [address] [place] [address] Performed By: #### 5 7021-8 #### [facility] CLIA [id number] [address] [place] [address] [place] MCHC (RBC) [Mass/Vol] 32.9 g/dL Normal 30.5-36.0 [facility] Comment on above: Order Comment: Speci men Type: BLOOD SPECIMEN Ordering Facility: [facility] Address: [address] [place] [address] Performed By: #### 5 7021-8 #### [facility] CLIA [id number] [address] [place] [address] [place] MCV (RBC) [Entitic vol] 91.5 fL Normal 80.0-100.0 [facility] Comment on above: Order Comment: Speci men Type: BLOOD SPECIMEN Ordering Facility: [facility] Address: [address] [place] [address] Performed By: #### 5 7021-8 #### [facility] CLIA [id number] [address] [place] [address] [place] Monocytes (Bld) [#/Vol] 1.05 10*3/uL High <0.87 [facility] Comment on above: Order Comment: Speci men Type: BLOOD SPECIMEN Ordering Facility: [facility] Address: [address] [place] [address] Performed By: #### 5 7021-8 #### [facility] CLIA [id number] [address] [place] [address] [place] Monocytes/100 WBC (Bld) 8.9 % Normal [facility] Comment on above: Order Comment: Speci men Type: BLOOD SPECIMEN Ordering Facility: [facility] Address: [address] [place] [address] Performed By: #### 5 7021-8 #### [facility] CLIA [id number] [address] [place] [address] [place] Neutrophils (Bld) [#/Vol] 8.29 10*3/uL High 1.45-7.50 [facility] Comment on above: Order Comment: Speci men Type: BLOOD SPECIMEN Ordering Facility: [facility] Address: [address] [place] [address] Performed By: #### 5 7021-8 #### [facility] CLIA [id number] [address] [place] [address] [place] Neutrophils/100 WBC (Bld) 70.4 % Normal [facility] Comment on above: Order Comment: Speci men Type: BLOOD SPECIMEN Ordering Facility: [facility] Address: [address] [place] [address] Performed By: #### 5 7021-8 #### [facility] CLIA [id number] [address] [place] [address] [place] Nucleated RBC (Bld) [#/Vol] 10*3/uL Normal <0.01 [facility] Comment on above: Order Comment: Speci men Type: BLOOD SPECIMEN Ordering Facility: [facility] Address: [address] [place] [address] Performed By: #### 5 7021-8 #### [facility] CLIA [id number] [address] [place] [address] [place] Nucleated RBC/100 WBC (Bld) [Ratio] 0.0 /100 WBC Normal [facility] Comment on above: Order Comment: Speci men Type: BLOOD SPECIMEN Ordering Facility: [facility] Address: [address] [place] [address] Performed By: #### 5 7021-8 #### [facility] CLIA [id number] [address] [place] [address] [place] Platelet mean volume (Bld) [Entitic vol] 10.2 fL Normal 9.0-12.7 [facility] Comment on above: Order Comment: Speci men Type: BLOOD SPECIMEN Ordering Facility: [facility] Address: [address] [place] [address] Performed By: #### 5 7021-8 #### [facility] CLIA [id number] [address] [place] [address] [facility] [place] Platelets (Bld) [#/Vol] 253 10*3/uL Normal 150-400 [facility] Comment on above: Order Comment: Speci men Type: BLOOD SPECIMEN Ordering Facility: [facility] Address: [address] [place] [address] Performed By: #### 5 7021-8 #### [facility] CLIA [id number] [address] [place], [place] [id number] [place] RBC (Bld) [#/Vol] 4.85 10*6/uL Normal 4.20-6.00 [facility] Comment on above: Order Comment: Speci men Type: BLOOD SPECIMEN Ordering Facility: [facility] Address: [address] [place] [address] Performed By: #### 5 7021-8 #### [facility] CLIA [id number] [address] [place] [address] [place] WBC (Bld) [#/Vol] 11.76 10*3/uL High 3.70-11.00 [facility] Comment on above: Order Comment: Speci men Type: BLOOD SPECIMEN Ordering Facility: [facility] Address: [address] [place] [address] Performed By: #### 5 7021-8 #### [facility] CLIA [id number] [address] [place], [place] [id number] [facility] [place] Comprehensive metabolic 2000 panelon 09-22-2023 Albumin [Mass/Vol] 3.9 g/dL Normal 3.2-5.0 [facility] Comment on above: Order Comment: Speci men Type: BLOOD SPECIMEN Ordering Facility: [facility] Address: [address] [place] [address] Performed By: #### 2 4323-8, PSAS1 #### [facility] CLIA [id number] [address] [place], [place] [id number] [place] ALP [Catalytic activity/Vol] 77 U/L Normal 45-117 [facility] Comment on above: Order Comment: Speci men Type: BLOOD SPECIMEN Ordering Facility: [facility] Address: [address] [place] [address] Performed By: #### 2 4323-8, PSAS1 #### [facility] CLIA [id number] [address] [place] [address] [place] ALT [Catalytic activity/Vol] 13 U/L Normal 13-61 [facility] Comment on above: Order Comment: Speci men Type: BLOOD SPECIMEN Ordering Facility: [facility] Address: [address] [place] [address] Result Comment: Resu lts may be falsely depressed after the administration of Sulfasalazine and/or Sulfapyridine. Performed By: #### 2 4323-8, PSAS1 #### [facility] CLIA [id number] [address] [place] [address] [place] Anion gap [Moles/Vol] 5 mmol/L Normal 5-16 [facility] Comment on above: Order Comment: Speci men Type: BLOOD SPECIMEN Ordering Facility: [facility] Address: [address] [place] [address] Performed By: #### 2 4323-8, PSAS1 #### [facility] CLIA [id number] [address] [place] [address] [place] AST [Catalytic activity/Vol] 15 U/L Normal 8-34 [facility] Comment on above: Order Comment: Speci men Type: BLOOD SPECIMEN Ordering Facility: [facility] Address: [address] [place] [address] Result Comment: Resu lts may be falsely depressed after the administration of Sulfasalazine and/or Sulfapyridine. Performed By: #### 2 4323-8, PSAS1 #### [facility] CLIA [id number] [address] [place] [address] [place] Bilirubin [Mass/Vol] 0.4 mg/dL Normal 0.2-1.0 [facility] Comment on above: Order Comment: Speci men Type: BLOOD SPECIMEN Ordering Facility: [facility] Address: [address] [place] [address] Performed By: #### 2 4323-8, PSAS1 #### [facility] CLIA [id number] [address] [place] [address] [place] Calcium [Mass/Vol] 9.8 mg/dL Normal 8.5-10.5 [facility] Comment on above: Order Comment: Speci men Type: BLOOD SPECIMEN Ordering Facility: [facility] Address: [address] [place] [address] Performed By: #### 2 4323-8, PSAS1 #### [facility] CLIA [id number] [address] [place] [address] [place] Chloride [Moles/Vol] 104 mmol/L Normal 98-107 [facility] Comment on above: Order Comment: Speci men Type: BLOOD SPECIMEN Ordering Facility: [facility] Address: [address] [place] [address] Performed By: #### 2 4323-8, PSAS1 #### [facility] CLIA [id number] [address] [place] [address] [place] CO2 [Moles/Vol] 30 mmol/L Normal 21-32 [facility] Comment on above: Order Comment: Speci men Type: BLOOD SPECIMEN Ordering Facility: [facility] Address: [address] [place] [address] Performed By: #### 2 4323-8, PSAS1 #### [facility] CLIA [id number] [address] [place] [address] [place] Creatinine [Mass/Vol] 0.69 mg/dL Normal 0.50-1.40 [facility] Comment on above: Order Comment: Speci men Type: BLOOD SPECIMEN Ordering Facility: [facility] Address: [address] [place] [address] Result Comment: Rosalind ents receiving either N-Acetylcysteine (NAC) or Metamizole prior to venipuncture, may have falsely depressed results. Performed By: #### 2 4323-8, PSAS1 #### [facility] CLIA [id number] [address] [place] [address] [place] Creatinine and Glomerular filtration rate.predicted panel (S/P/Bld) 96 mL/min/1.73m??? Normal >=60 [facility] Comment on above: Order Comment: Uche emmanuel Type: BLOOD SPECIMEN Ordering Facility: [facility] Address: [address] [place] [address] Result Comment: Florencia mated Glomerular Filtration Rate (eGFR) is calculated using the 2020 CKD-EPI creatinine equation. This equation utilizes serum creatinine, sex, and age as parameters. The creatinine assay has traceable calibration to isotope dilution-mass spectrometry. Refer to KDIGO guidelines for clinical interpretation. In patients with unstable renal function, e.g. those with acute kidney injury, the eGFR may not accurately reflect actual GFR. Performed By: #### 2 4323-8, PSAS1 #### [facility] CLIA [id number] [address] [place] [address] [place] Glucose [Mass/Vol] 75 mg/dL Normal 70-100 [facility] Comment on above: Order Comment: Uche emmanuel Type: BLOOD SPECIMEN Ordering Facility: [facility] Address: [address] [place] [address] Result Comment: The [place] Diabetes [employer] (ADA) provides guidance for cutoff values for fasting glucose and random glucose. The ADA defines fasting as no caloric intake for at least 8 hours. Fasting plasma glucose results between 100 to 125 mg/dL indicate increased risk for diabetes (prediabetes). Fasting plasma glucose results greater than or equal to 126 mg/dL meet the criteria for diagnosis of diabetes. In the absence of unequivocal hyperglycemia, results should be confirmed by repeat testing. In a patient with classic symptoms of hyperglycemia or hyperglycemic crisis, random plasma glucose results greater than or equal to 200 mg/dL meet the criteria for diagnosis of diabetes. Reference: Standards of Medical Care in Diabetes 2016, [place] [employer]. Diabetes Care. 2016.39(Suppl 1). Results may be falsely elevated after the administration of Sulfapyridine. Results may be falsely depressed after the administration of Sulfasalazine. Performed By: #### 2 4323-8, PSAS1 #### [facility] CLIA [id number] [address] [place], [place] [id number] [place] Potassium [Moles/Vol] 4.2 mmol/L Normal 3.5-5.1 [facility] Comment on above: Order Comment: Speci men Type: BLOOD SPECIMEN Ordering Facility: [facility] Address: [address] [place] [id number] Performed By: #### 2 4323-8, PSAS1 #### [facility] CLIA [id number] [address] [place] [address] [place] Protein [Mass/Vol] 7.4 g/dL Normal 6.0-8.5 [facility] Comment on above: Order Comment: Speci men Type: BLOOD SPECIMEN Ordering Facility: [facility] Address: [address] [place] [address] [place] [address] Performed By: #### 2 4323-8, PSAS1 #### [facility] CLIA [id number] [address] [place] [address] [place] Sodium [Moles/Vol] 139 mmol/L Normal 136-145 [facility] Comment on above: Order Comment: Speci men Type: BLOOD SPECIMEN Ordering Facility: [facility] Address: [address] [place] [address] Performed By: #### 2 4323-8, PSAS1 #### [facility] CLIA [id number] [address] [place] [address] [place] Urea nitrogen [Mass/Vol] 12 mg/dL Normal 7-26 [facility] Comment on above: Order Comment: Speci men Type: BLOOD SPECIMEN Ordering Facility: [facility] Address: [address] [place] [address] Performed By: #### 2 4323-8, PSAS1 #### [facility] CLIA [id number] [address] [place] [address] [place] PSA/PROSTATE SPECIFIC ANTIGE N SCREENINGon 09-22-2023 Prostate specific Ag [Mass/Vol] 1.68 ng/mL Normal <2.60 [facility] Comment on above: Order Comment: Speci men Type: BLOOD SPECIMENOrdering Facility: [facility] Address: [address] [place] [address] [place] [address] Result Comment: This is a new methodology for this marker. Tumor markers obtained from different assay methods cannot be used interchangeably. Expect results of this assay to run lower than the previous assay. It is recommended to re-baseline patients when changing to a new methodology. Performed By: #### 2 4323-8, PSAS1 ####[facility] [id number] [place] [address] [place] CNPNon 09-21-2023 [facility] Telephone (FAMMAS) ----- EDUARD RUSSELL ([id number]) 1945 [facility] Date Time Provider Department 09/21/23 MARIBELL SPENCE During your visit today, we recorded the following information about you: Roro Davis MA 09/21/2023 9:08 AM Signed Items addressed in this encounter: Telephone Encounter Per scheduling, 3rd attempt LVM to schedule consult [facility] clinic dx: Tobacco abuse [Z72.0] no call back Able to close encounter. Roro Davis MA September 21, 2023 9:07 AM 9:07 AM Allergies As of Date: 09/21/2023 Noted Allergy Reaction SHELLFISH 07/10/2011 10 - Anaphylaxis Date Reviewed: 08/25/2023 Reviewed by: Racheal Sanchez LPN - Fully Assessed Reason for Visit: 3 attempts made to schedule Lung Cancer Screening [Other] Prescriptions as of 09/21/2023 - methIMAzole (TAPAZOLE) 5 mg tablet Take 1 tablet by mouth once daily. - sildenafil (VIAGRA) 50 mg tablet Take 1 tablet by mouth once daily as needed. Problem List As Of Date 09/21/2023 Noted Resolved Graves disease [E05.00] 04/09/2006 COPD (chronic obstructive pulmonary disease) (H*07/29/2011 Encounter Status:Closed by RORO DAVIS on 09/21/23 [facility] CNOVon 08-25-2023 [facility] Office Visit (FAMMAS ) ----- EDUARD RUSSELL ([id number]) 1945 [facility] Date Time Provider Department 08/25/23 10:20 AM MARIBELL SPENCE During your visit today, we recorded the following information about you: Temperature Pulse Respiration Blood pressure 98.2 degrees 66/minute 15/minute 126/72 Weight Height 98.5 kg 1.88 m Racheal Sanchez LPN 08/25/2023 11:01 AM Signed Patient is in office today for 6 month exam. KINGA: 02/24/2023 Medicare Wellness Exam Patient denies any concerns today. No refills needed. Racheal Sanchez LPN August 25, 2023 10:19 AM Maribell Spence MD 08/25/2023 11:01 AM Signed Subjective Eduard Russell is a 78 year old male.Patient presents today for follow-up for multiple medical problems. See list. His chronic medical problems been stable. He is compliant with his medications. He has no new complaints today. Review of Systems Constitutional: Negative. HENT: Negative. Eyes: Negative. Respiratory: Negative. Cardiovascular: Negative. Gastrointestinal: Negative. Endocrine: Negative. Genitourinary: Negative. Musculoskeletal: Negative. Skin: Negative. Allergic/Immunologic: Negative. Neurological: Negative. Hematological: Negative. Psychiatric/Behavioral: Negative. PAST SURGICAL HISTORY Procedure Laterality Date SEPTOPLASTY ~1999 nasal SHOULDER ARTHROSCOPY/SURGERY age 42 PAST MEDICAL HISTORY Diagnosis Date Asthma COPD (chronic obstructive pulmonary disease) (HCC) Grave's disease Tobacco abuse FAMILY HISTORY Problem Relation Age of Onset Cancer Mother Colon Cancer Mother Alzheimer's Disease Mother Heart disease Father Coronary Artery Disease Father 71 fatal ID Social History Tobacco Use Smoking status: Every Day Packs/day: 1 Types: Cigarettes Smokeless tobacco: Never Vaping Use Vaping Use: Never used Substance Use Topics Alcohol use: Yes Comment: occasional Drug use: Not Currently ALLERGIES Allergen Reactions Shellfish Anaphylaxis MEDICATIONS: methIMAzole (TAPAZOLE) 5 mg tablet Take 1 tablet by mouth once daily. BREO ELLIPTA 100-25 mcg/dose inhaler Inhale 1 Inhalation as instructed once daily. sildenafil (VIAGRA) 50 mg tablet Take 1 tablet by mouth once daily as needed. Allergies, past surgical history, family history and past medical history were reviewed per this encounter. Medications were reviewed and verified. Objective BP 126/72 (BP Site: Left Arm, BP Position: Sitting, BP Cuff Size: Large Adult) Pulse 66 Temp 36.8 ?C (98.2 ?F) (Temporal) Resp 15 Ht 188 cm (6' 2") Wt 98.5 kg (217 lb 2 oz) SpO2 96% BMI 27.88 kg/m? Physical Exam Vitals reviewed. Constitutional: Appearance: Normal appearance. HENT: Head: Normocephalic and atraumatic. Nose: Nose normal. Eyes: Extraocular Movements: Extraocular movements intact. Pupils: Pupils are equal, round, and reactive to light. Cardiovascular: Rate and Rhythm: Normal rate and regular rhythm. Pulmonary: Effort: Pulmonary effort is normal. Breath sounds: Normal breath sounds. Abdominal: General: Bowel sounds are normal. Palpations: Abdomen is soft. Musculoskeletal: General: Normal range of motion. Cervical back: Normal range of motion and neck supple. Skin: General: Skin is warm and dry. Capillary Refill: Capillary refill takes less than 2 seconds. Neurological: General: No focal deficit present. Mental Status: He is alert and oriented to person, place, and time. Mental status is at baseline. Psychiatric: Mood and Affect: Mood normal. Behavior: Behavior normal. Assessment and Plan Encounter Diagnosis ICD-10-CM 1. Lipid screening Z13.220 LIPID PANEL BASIC 2. Chronic obstructive pulmonary disease, unspecified COPD type (HCC) J44.9 3. Wellness examination Z00.00 COMP METABOLIC PANEL 4. Screening PSA (prostate specific antigen) Z12.5 PSA/PROSTSPECAG SCRN 5. Screening for deficiency anemia Z13.0 CBC + DIFF 6. Tobacco abuse Z72.0 CONSULT LUNG CANCER SCREENING CLINIC Continue present medications. Check labs as above. Monitor blood pressure regularly. Exercise as tolerated. Maintain good diet. Counseled smoking cessation. Consult to lung cancer screening clinic. Follow-up in 6 months. Maribell Spence MD Allergies As of Date: 08/25/2023 Noted Allergy Reaction SHELLFISH 07/10/2011 10 - Anaphylaxis Date Reviewed: 08/25/2023 Reviewed by: Racheal Sanchez LPN - Fully Assessed Reason for Visit: 6 Month Exam [189] Primary Visit Diagnosis:Lipid screening [Z13.220] Other Visit Diagnoses:Chronic obstructive pulmonary disease, unspecified COPD type (HCC) [J44.9] Wellness examination [Z00.00] Screening PSA (prostate specific antigen) [Z12.5] Screening for deficiency anemia [Z13.0] Tobacco abuse [Z72.0] Order(s):CBC + DIFF [SQCBCDIF] Order #: [id number] FUTURE COMP METABOLIC PANEL [SQCMP] Order # (more content not included)... [facility] CNOVon 02-24-2023 [facility] Office Visit (FAMMAS ) ----- EDUARD RUSSELL ([id number]) 1945 [facility] Date Time Provider Department 02/24/23 10:30 AM MARIBELL SPENCE During your visit today, we recorded the following information about you: Temperature Pulse Respiration Blood pressure 97.3 degrees 76/minute 18/minute 128/78 Weight Height 95.6 kg 1.88 m Carmen Álvarez LPN 02/24/2023 11:17 AM Signed Patient in the office today for an annual Medicare Wellness exam. Health Maintenance Due: Pneumococcal Vaccine: 65+(1 - PCV) declined Spirometry declined Hepatitis C Screening declined DTaP,Tdap,Td Vaccine(1 - Tdap) declined Alpha-1 Antitrypsin Deficiency Screening declined Shingrix Vaccine(1 of 2) administered right deltoid Colorectal Cancer Screening- due to cheryl with Dr Christopher for repeat colo.not scheduled at this time Covid-19 Vaccine(5 - Pfizer series) declined Influenza Vaccine(1) administered left deltoid Medicare Yearly Visit Current Outpatient Medications Medication Sig methIMAzole (TAPAZOLE) 5 mg tablet Take 5 mg by mouth once daily. BREO ELLIPTA 100-25 mcg/dose inhaler Inhale 1 Inhalation as instructed once daily. sildenafil (VIAGRA) 50 mg tablet Take 1 tablet by mouth once daily as needed. No current facility-administered medications for this visit. Medications reviewed: Yes Eduard denies regular aerobic exercise. He watches his diet for sodium, low fat and low cholesterol most of the time. End of Live Planning discussed including patients advanced directive wishes: No I am willing to follow Eduard advanced directives. Depression screen He in the past two weeks denies having felt down, depressed, hopeless, or with little interest or pleasure in doing things. Functional Ability/Safety Screen 1. Was the patient's timed Up and Go test unsteady or longer than 30 seconds? 2. Does the patient need help with the phone, transportation, shopping,preparing meals, housework, laundry, medications or managing money? No 3. Does your home have rungs in the hallway, lack of grab bars in the bathroom, lack of handrails on the stairs or have poor lighting? No BP 128/78 Pulse 76 Temp (Src) 97.3 (Temporal) Resp 18 Ht 6' 2" (1.88m) Wt 210 lb 12.8 oz (95.6kg) SpO2 97% BMI 27.05 kg/(m2). MD William Minaya, Maribell Lares MD 02/24/2023 11:17 AM Signed This note was created using NoteWriter. Subjective Eduard Russell is a 77 year old male. Eduard presents for his annual wellness Medicare visit Review of Systems Constitutional: Negative. HENT: Negative. Eyes: Negative. Respiratory: Negative. Cardiovascular: Negative. Gastrointestinal: Negative. Endocrine: Negative. Genitourinary: Negative. Musculoskeletal: Negative. Skin: Negative. Allergic/Immunologic: Negative. Neurological: Negative. Hematological: Negative. Psychiatric/Behavioral: Negative. Objective BP 128/78 (BP Site: Left Arm, BP Position: Sitting, BP Cuff Size: Regular Adult) Pulse 76 Temp 36.3 ?C (97.3 ?F) (Temporal) Resp 18 Ht 188 cm (6' 2") Wt 95.6 kg (210 lb 12.8 oz) SpO2 97% BMI 27.07 kg/m? Physical Exam Vitals reviewed. Constitutional: Appearance: Normal appearance. HENT: Head: Normocephalic and atraumatic. Nose: Nose normal. Eyes: Extraocular Movements: Extraocular movements intact. Pupils: Pupils are equal, round, and reactive to light. Cardiovascular: Rate and Rhythm: Normal rate and regular rhythm. Pulmonary: Effort: Pulmonary effort is normal. Breath sounds: Normal breath sounds. Abdominal: General: Bowel sounds are normal. Palpations: Abdomen is soft. Musculoskeletal: General: Normal range of motion. Cervical back: Normal range of motion and neck supple. Skin: General: Skin is warm and dry. Capillary Refill: Capillary refill takes less than 2 seconds. Neurological: General: No focal deficit present. Mental Status: He is alert and oriented to person, place, and time. Mental status is at baseline. Psychiatric: Mood and Affect: Mood normal. Behavior: Behavior normal. Assessment and Plan Encounter Diagnosis ICD-10-CM 1. Wellness examination Z00.00 COMP METABOLIC PANEL 2. Counseling regarding advance directives and goals of care Z71.89 ADVANCE CARE PLAN DISCUSSION 3. Encounter for screening for depression Z13.31 DEPRESSION SCREENING/ASSESSMENT 4. Lipid screening Z13.220 LIPID PANEL BASIC 5. Screening for deficiency anemia Z13.0 CBC + DIFF 6. Screening PSA (prostate specific antigen) Z12.5 PSA/PROSTSPECAG SCRN 7. Tobacco dependence F17.200 CONSULT LUNG CANCER SCREENING CLINIC 8. Graves disease E05.00 TSH BLD All open preventative health maintenance topics discussed with patient in detail. This includes risks and benefits regarding vaccines, cancer screening, healthy life style, and diet. Maribell Spence MD Allergies As of (more content not included)... [facility] Hannah 01-19-2023 [facility] Telephone (apiOmat) ----- EDUARD RUSSELL ([id number]) 1945 [facility] Date Time Provider Department 01/19/23 MARIBELL SPENCE During your visit today, we recorded the following information about you: Tennille Tiwari 01/19/2023 9:54 AM Signed BREO ELLIPTA 100-25 mcg/dose inhaler [address] [place] [address] - [address] - [phone] Carmen Álvarez LPN 01/19/2023 5:24 PM Signed Being resolved in another encounter Carmen Álvarez LPN January 19, 2023 5:24 PM Allergies As of Date: 01/19/2023 Noted Allergy Reaction SHELLFISH 07/10/2011 16 - Unknown Date Reviewed: 08/19/2022 Reviewed by: Carmen Álvarez LPN - Fully Assessed Reason for Visit: Refill Request [94] Prescriptions as of 01/19/2023 - sildenafil (VIAGRA) 50 mg tablet Take 1 tablet by mouth once daily as needed. - methIMAzole (TAPAZOLE) 10 mg tablet Take 1 tablet by mouth once daily. - BREO ELLIPTA 100-25 mcg/dose inhaler Inhale 100 Inhalation as instructed once daily. Inhale 1 puff once daily Problem List As Of Date 01/19/2023 Noted Resolved Graves disease [E05.00] 04/09/2006 COPD (chronic obstructive pulmonary disease) (H*07/29/2011 Encounter Status:Closed by CARMEN ÁLVAREZ on 01/19/23 [facility] Final Surgical Pathology Rep [facility] 06-28-2019 Final Surgical Pathology Report . Pathology Reports Accession: Collected Date/Time: Received Date/Time: Pathologist: [id number] 06/26/2019 10:38 EST 06/27/2019 09:01 CIRO CRONIN MD Final Surgical Pathology Report DIAGNOSIS: A) RIGHT COLON, POLYPECTOMY -- TUBULAR ADENOMA. B) TRANSVERSE COLON, POLYPECTOMY -- TUBULAR ADENOMA. COMMENT: [facility] - [place]# [id number] CLINICAL INFORMATION: Procedure: COLONOSCOPY WITH POLYPECTOMIES Preoperative diagnosis: FAMILY HISTORY OF COLON CANCER, PERSONAL HISTORY MULTIPLE ADENOMAS Postoperative diagnosis: SAME SPECIMEN: A RIGHT COLON POLYPS B TRANSVERSE COLON POLYPS GROSS DESCRIPTION: A. Received in formalin labeled right colon polyps are 2 emery glistening soft tissues, 0.5 and 0.7 cm. TS -1 B. Received in formalin labeled transverse colon polyps are 3 red lobulated tissues ranging from 0.5 to 1.4 cm. The base of each is inked. The 2 larger tissues are sectioned. TS -3 Dictated by Viri STEWART ([facility]) MICROSCOPIC DESCRIPTION: A&B) Slides reviewed. Electronically Signed by Pathology Report verified by [facility] Electronically signed by CIRO BIGGS Sign out Date: 06/28/2019 11:18 Performing Lab: [facility], [address] [place] [address] ([place]) Comment on above: Performed By: #### S PFR #### [place] [address] CBC W/DIFFon 12-16-2018 BASO ABS 0.10 K/CU MM Normal 0-0.2 [facility] Comment on above: Performed By: #### L 200.83380 #### [facility] [address] [place] [address] Basophils/100 WBC (Bld) 0.8 % Normal 0-2 [facility] Comment on above: Performed By: #### L 200.50937 #### [facility] [address] [place] [address] EOS ABS 0.30 K/CU MM Normal 0-0.5 [facility] Comment on above: Performed By: #### L 200.04032 #### [facility] [address] [place] [address] Eosinophils/100 WBC (Bld) 2.8 % Normal 0-5 [facility] Comment on above: Performed By: #### L 200.13080 #### [facility] [address] [place], [place] [id number] Erythrocyte distribution width (RBC) [Ratio] 12.5 % Normal 11-14.5 [facility] Comment on above: Performed By: #### L 200.90486 #### [facility] [address] [place] [address] Hematocrit (Bld) [Volume fraction] 49.7 % Normal 41.0-53.0 [facility] Comment on above: Performed By: #### L 200.92838 #### [facility] [address] [place] [address] Hemoglobin (Bld) [Mass/Vol] 15.5 g/dL Normal 13.5-17.5 [facility] Comment on above: Performed By: #### L 200.08569 #### [facility] [address] [place] [address] IMMATR GRAN ABS 0.00 K/CU MM Normal Less than 2 [facility] Comment on above: Performed By: #### L 200.58330 #### [facility] [address] [place] [address] IMMATURE GRAN % 0.4 % Normal Less than 2 [facility] Comment on above: Performed By: #### L 200.18738 #### [facility] [address] [place] [address] Lymphocytes (Bld) [#/Vol] 2.30 K/CU MM Normal 0.9-4.4 [facility] Comment on above: Performed By: #### L 200.49929 #### [facility] [address] [place] [address] Lymphocytes/100 WBC (Bld) 21.1 % Normal 20-40 [facility] Comment on above: Performed By: #### L 200.91915 #### [facility] [address] [place] [address] MCHC (RBC) [Mass/Vol] 31.2 g/dL Low 32.0-36.0 [facility] Comment on above: Performed By: #### L [id number] #### [facility] [address] [place] [address] MCV (RBC) [Entitic vol] 94.3 fL Normal 80.0-99.0 M [facility] Comment on above: Performed By: #### L [id number] #### [facility] [address] [place] [address] MONO ABS 1.00 K/CU MM Normal 0.1-1.1 [facility] Comment on above: Performed By: #### L [id number] #### [facility] [address] [place] [address] Monocytes/100 WBC (Bld) 9.5 % Normal 2-10 M [facility] Comment on above: Performed By: #### L [id number] #### [facility] [address] [place] [address] NEUTROPHIL ABS 7.20 K/CU MM Normal 2.0-8.3 [facility] Comment on above: Performed By: #### L [id number] #### [facility] [address] [place] [address] Neutrophils/100 WBC (Bld) 65.4 % Normal 45-75 [facility] Comment on above: Performed By: #### L [id number] #### [facility] [address] [place] [address] Nucleated RBC/100 WBC (Bld) [Ratio] 0.0 % Normal Less than 1 [facility] Comment on above: Performed By: #### L [id number] #### [facility] [address] [place] [address] Platelet mean volume (Bld) [Entitic vol] 10.5 fL Normal 9.4-12.4 [facility] Comment on above: Performed By: #### L [id number] #### [facility] [address] [place], [place] [id number] Platelets (Bld) [#/Vol] 209 K/CU MM Normal 150-450 [facility] Comment on above: Performed By: #### L [id number] #### [facility] [address] [place] [address] RBC (Bld) [#/Vol] 5.27 M/CU MM Normal 4.50-6.00 [facility] Comment on above: Performed By: #### L [id number] #### [facility] [address] [place] [address] WBC (Bld) [#/Vol] 11.0 K/CUMM Normal 4.5-11.0 [facility] Comment on above: Performed By: #### L [id number] #### [facility] [address] [place] [address] CHEST PA/AP AND LATERALon CHEST PA/AP AND LATERAL CHEST PA/AP & LA TERAL Ordering Physician: Maribell Spence MD 12/16/2018 11:37 AM CHEST PA AND LATERAL: Clinical Statement: Shortness of breath Comparison: None FINDINGS: The cardiomediastinal silhouette is normal.No focal consolidation, pulmonary edema, pleural effusion, or pneumothorax is identified. Hyperinflation, increased AP diameter, and flattening of the diaphragms is present. IMPRESSION: No acute process. There is Hyperinflation, increased AP diameter and flattening of the diaphragms. * Dictated by General Forecaster: Suzan Lowery DO Reviewed and Signed by: Yosvany Cedillo MD ---- Electronic Signature on File ---- Signed By: Yosvany Cedillo MD [email or web address] Dictated: 12/16/2018 3:10 PM Signed: 12/16/2018 5:08 PM Reported By: YOSVANY CEDILLO M.D. Signed By: YOSVANY CEDILLO M.D. Normal [facility] D-DIMERon 12-16-2018 D-DIMER 340.0 ng/mlFEU Normal 0-590 [facility] Comment on above: Result Comment: This test has been validated for the exclusion of Deep Vein Thrombosis and Pulmonary Embolism, with a cut-off of 450 ng/ml/FEU. Results should be interpreted in conjunction with the patient's medical history, clinical presentation and other findings. D-Dimer is elevated in DVT, PE and DIC. However, an increased D-Dimer can be seen in other clinical conditions and should not be used as a confirmatory diagnostic marker. Performed By: #### L [id number] #### [facility] [address] [place], [place] [id number] SURGon 04-04-2018 SURG ----- Patient: EDUARD RUSSELL SPECIMEN: [id number] Collection Date: 04/04/18 Received: 04/05/18 Status: SANDRA Villegas Dr.: Maribell Spence MD Ph# Material for Examination: A FOREHEAD LESION PRE-OP DIAGNOSIS: SUSPICIOUS MOLE FOR SKIN CA POST-OP DIAGNOSIS: SAME SURGICAL PROCEDURE: NONE GIVEN DIAGNOSIS A. Forehead lesion: Benign keratosis, see comment. COMMENT Differential diagnosis includes verruca vulgaris and seborrheic keratosis, hyperkeratotic type. GROSS DESCRIPTION The specimen is received in formalin and labeled with the patient's name, ID and designated forehead lesion. It consists of an irregular portion of white apparent skin measuring 0.4 cm in greatest dimension. On one side, there is a slightly raised white area measuring 0.3 cm in greatest dimension. The specimen is inked in black, bisected slightly off center, and entirely submitted in one cassette, A1. MICROSCOPIC DESCRIPTION 2 Marlon stained sections examined. Signed Verified/Reviewed by MASHA EGAN M.D. 04/06/18 This dictation was created using voice recognition software. Phonetic and/or minor grammatical errors may exist. [facility] NAME: EDUARD RUSSELL Pathology and Laboratory Medicine UNIT#: [id number] LOC: [facility] Nursing Program Chair: Jenifer Winn M.D. [facility] 49 AGE/SEX: 72/M ORD.Maribell Crocker MD END OF REPORT Normal [facility] Vital Signs Date Time Vital Sign Value Performing Clinician Facility 12-21-2024 10:33-0400 Body height 185.[address] Thiago Morgan MD Work Phone: [facility] 12-21-2024 10:33-0400 Body mass index (BMI) [Ratio] 28.3 kg/m2 Dr. Thiago Morgan MD Work Phone: [facility] 12-21-2024 10:33-0400 Body temperature 97.5 [degF] Dr. Thiago Morgan MD Work Phone: [facility] 12-21-2024 10:33-0400 Body weight 97.[address] Thiago Morgan MD Work Phone: [facility] 12-21-2024 10:33-0400 Diastolic blood pressure 60 mm[Hg] Dr. Thiago Morgan MD Work Phone: [facility] 12-21-2024 10:33-0400 Heart rate 84 /min Dr. Thiago Morgan MD Work Phone: [facility] 12-21-2024 10:33-0400 Inhaled oxygen flow rate 2 L/min Dr. Thiago Morgan MD Work Phone: [facility] 12-21-2024 10:33-0400 Respiratory rate 16 /min Dr. Thiago Morgan MD Work Phone: [facility] 12-21-2024 10:33-0400 SaO2% (BldA) [Mass fraction] 91 % Dr. Thiago Morgan MD Work Phone: [facility] 12-21-2024 10:33-0400 Systolic blood pressure 126 mm[Hg] Dr. Thiago Morgan MD Work Phone: [facility] 12-20-2024 08:53-0400 Diastolic blood pressure 72 mm[Hg] Dr. Thiago Morgan MD Work Phone: [facility] 12-20-2024 08:53-0400 Heart rate 86 /min Dr. Thiago Morgan MD Work Phone: [facility] 12-20-2024 08:53-0400 Inhaled oxygen flow rate 3 L/min Dr. Thiago Morgan MD Work Phone: [facility] 12-20-2024 08:53-0400 Respiratory rate 18 /min Dr. Thiago Morgan MD Work Phone: [facility] 12-20-2024 08:53-0400 Systolic blood pressure 162 mm[Hg] Dr. Thiago Morgan MD Work Phone: [facility] 12-07-2024 12:45-0400 Diastolic blood pressure 69 mm[Hg] Dr. Thiago Morgan MD Work Phone: [facility] 12-07-2024 12:45-0400 Heart rate 87 /min Dr. Thiago Morgan MD Work Phone: [facility] 12-07-2024 12:45-0400 Inhaled oxygen flow rate 2 L/min Dr. Thiago Morgan MD Work Phone: [facility] 12-07-2024 12:45-0400 Respiratory rate 20 /min Dr. Thiago Morgan MD Work Phone: [facility] 12-07-2024 12:45-0400 Systolic blood pressure 130 mm[Hg] Dr. Thiago Morgan MD Work Phone: [facility] 12-07-2024 12:21-0400 Body temperature 97.8 [degF] Dr. Thiago Morgan MD Work Phone: [facility] 12-05-2024 08:51-0400 Body height 185.[address] Thiago Morgan MD Work Phone: [facility] 12-05-2024 08:51-0400 Body mass index (BMI) [Ratio] 28.6 kg/m2 Dr. Thiago Morgan MD Work Phone: [facility] 12-05-2024 08:51-0400 Body temperature 97.3 [degF] Dr. Thiago Morgan MD Work Phone: [facility] 12-05-2024 08:51-0400 Body weight 98.[address] Thiago Morgan MD Work Phone: [facility] 12-05-2024 08:51-0400 Diastolic blood pressure 66 mm[Hg] Dr. Thiago Morgan MD Work Phone: [facility] 12-05-2024 08:51-0400 Heart rate 90 /min Dr. Thiago Morgan MD Work Phone: [facility] 12-05-2024 08:51-0400 Inhaled oxygen flow rate 2 L/min Dr. Thiago Morgan MD Work Phone: [facility] 12-05-2024 08:51-0400 Respiratory rate 18 /min Dr. Thiago Morgan MD Work Phone: [facility] 12-05-2024 08:51-0400 SaO2% (BldA) [Mass fraction] 94 % Dr. Thiago Morgan MD Work Phone: [facility] 12-05-2024 08:51-0400 Systolic blood pressure 108 mm[Hg] Dr. Thiago Morgan MD Work Phone: [facility] 11-28-2024 11:15-0400 Body height 185.[address] Thiago Morgan MD Work Phone: [facility] 11-28-2024 11:15-0400 Body weight 97.[address] Thiago Morgan MD Work Phone: [facility] 11-28-2024 11:15-0400 Heart rate 94 /min Dr. Thiago Morgan MD Work Phone: [facility] 11-28-2024 11:15-0400 Inhaled oxygen flow rate 2 L/min Dr. Thiago Morgan MD Work Phone: [facility] 11-28-2024 11:15-0400 SaO2% (BldA) [Mass fraction] 93 % Dr. Thiago Morgan MD Work Phone: [facility] 11-27-2024 12:50-0400 Diastolic blood pressure 62 mm[Hg] Dr. Thiago Morgan MD Work Phone: [facility] 11-27-2024 12:50-0400 Heart rate 98 /min Dr. Thiago Morgan MD Work Phone: [facility] 11-27-2024 12:50-0400 Inhaled oxygen flow rate 2 L/min Dr. Thiago Morgan MD Work Phone: [facility] 11-27-2024 12:50-0400 Respiratory rate 18 /min Dr. Thiago Morgan MD Work Phone: [facility] 11-27-2024 12:50-0400 Systolic blood pressure 121 mm[Hg] Dr. Thiago Morgan MD Work Phone: [facility] 11-27-2024 12:09-0400 Body temperature 97.5 [degF] Dr. Thiago Morgan MD Work Phone: [facility] 11-24-2024 14:03-0400 Heart rate 91 /min Dr. Thiago Morgan MD Work Phone: [facility] 11-24-2024 14:03-0400 Inhaled oxygen flow rate 2 L/min Dr. Thiago Morgan MD Work Phone: [facility] 11-24-2024 14:03-0400 Respiratory rate 18 /min Dr. Thiago Morgan MD Work Phone: [facility] 11-24-2024 13:57-0400 Diastolic blood pressure 64 mm[Hg] Dr. Thiago Morgan MD Work Phone: [facility] 11-24-2024 13:57-0400 Systolic blood pressure 113 mm[Hg] Dr. Thiago Morgan MD Work Phone: [facility] 11-16-2024 14:15-0400 Diastolic blood pressure 70 mm[Hg] Dr. Thiago Morgan MD Work Phone: [facility] 11-16-2024 14:15-0400 Heart rate 97 /min Dr. Thiago Morgan MD Work Phone: [facility] 11-16-2024 14:15-0400 Inhaled oxygen flow rate 2 L/min Dr. Thiago Morgan MD Work Phone: [facility] 11-16-2024 14:15-0400 Respiratory rate 18 /min Dr. Thiago Morgan MD Work Phone: [facility] 11-16-2024 14:15-0400 Systolic blood pressure 128 mm[Hg] Dr. Thiago Morgan MD Work Phone: [facility] 11-16-2024 13:50-0400 Body temperature 97.7 [degF] Dr. Thiago Morgan MD Work Phone: [facility] 11-07-2024 09:06-0400 Diastolic blood pressure 63 mm[Hg] Dr. Thiago Morgan MD Work Phone: [facility] 11-07-2024 09:06-0400 Heart rate 81 /min Dr. Thiago Morgan MD Work Phone: [facility] 11-07-2024 09:06-0400 Inhaled oxygen flow rate 2 L/min Dr. Thiago Morgan MD Work Phone: [facility] 11-07-2024 09:06-0400 Respiratory rate 18 /min Dr. Thiago Morgan MD Work Phone: [facility] 11-07-2024 09:06-0400 Systolic blood pressure 114 mm[Hg] Dr. Thiago Morgan MD Work Phone: [facility] 11-02-2024 08:13-0400 Body height 185.[address] Thiago Morgan MD Work Phone: [facility] 11-02-2024 08:13-0400 Body mass index (BMI) [Ratio] 28.8 kg/m2 Dr. Thiago Morgan MD Work Phone: [facility] 11-02-2024 08:13-0400 Body temperature 97.4 [degF] Dr. Thiago Morgan MD Work Phone: [facility] 11-02-2024 08:13-0400 Body weight 98.[address] Thiago Morgan MD Work Phone: [facility] 11-02-2024 08:13-0400 Diastolic blood pressure 74 mm[Hg] Dr. Thiago Morgan MD Work Phone: [facility] 11-02-2024 08:13-0400 Heart rate 91 /min Dr. Thiago Morgan MD Work Phone: [facility] 11-02-2024 08:13-0400 Inhaled oxygen flow rate 2 L/min Dr. Thiago Morgan MD Work Phone: [facility] 11-02-2024 08:13-0400 Respiratory rate 20 /min Dr. Thiago Morgan MD Work Phone: [facility] 11-02-2024 08:13-0400 SaO2% (BldA) [Mass fraction] 91 % Dr. Thiago Morgan MD Work Phone: [facility] 11-02-2024 08:13-0400 Systolic blood pressure 134 mm[Hg] Dr. Thiago Morgan MD Work Phone: [facility] 10-24-2024 15:12-0400 Body temperature 98 [degF] Dr. Thiago Morgan MD Work Phone: [facility] 10-24-2024 15:12-0400 Diastolic blood pressure 75 mm[Hg] Dr. Thiago Morgan MD Work Phone: [facility] 10-24-2024 15:12-0400 Heart rate 80 /min Dr. Thiago Morgan MD Work Phone: [facility] 10-24-2024 15:12-0400 Inhaled oxygen flow rate 2 L/min Dr. Thiago Morgan MD Work Phone: [facility] 10-24-2024 15:12-0400 Respiratory rate 18 /min Dr. Thiago Morgan MD Work Phone: [facility] 10-24-2024 15:12-0400 SaO2% (BldA) [Mass fraction] 95 % Dr. hTiago Morgan MD Work Phone: [facility] 10-24-2024 15:12-0400 Systolic blood pressure 129 mm[Hg] Dr. Thiago Morgan MD Work Phone: [facility] 10-23-2024 15:25-0400 Body height 185.[address] Thiago Morgan MD Work Phone: [facility] 10-23-2024 15:25-0400 Body mass index (BMI) [Ratio] 28.5 kg/m2 Dr. Thiago Morgan MD Work Phone: [facility] 10-23-2024 15:25-0400 Body weight 97.[address] Thiago Morgan MD Work Phone: [facility] 10-23-2024 14:47-0400 Body temperature 98.6 [degF] Dr. Thiago Morgan MD Work Phone: [facility] 10-23-2024 14:47-0400 Diastolic blood pressure 72 mm[Hg] Dr. Thiago Morgan MD Work Phone: [facility] 10-23-2024 14:47-0400 Heart rate 89 /min Dr. Thiago Morgan MD Work Phone: [facility] 10-23-2024 14:47-0400 Inhaled oxygen flow rate 2 L/min Dr. Thiago Morgan MD Work Phone: [facility] 10-23-2024 14:47-0400 Respiratory rate 24 /min Dr. Thiago Morgan MD Work Phone: [facility] 10-23-2024 14:47-0400 SaO2% (BldA) [Mass fraction] 96 % Dr. Thiago Morgan MD Work Phone: [facility] 10-23-2024 14:47-0400 Systolic blood pressure 116 mm[Hg] Dr. Thiago Morgan MD Work Phone: [facility] 10-23-2024 10:27-0400 Body height 185.[address] Thiago Morgan MD Work Phone: [facility] 10-23-2024 10:27-0400 Body mass index (BMI) [Ratio] 29.7 kg/m2 Dr. Thiago Morgan MD Work Phone: [facility] 10-23-2024 10:27-0400 Body weight 102.[address] Thiago Morgan MD Work Phone: [facility] 09-18-2024 13:33-0400 Body height 185.[address] Thiago Morgan MD Work Phone: [facility] 09-18-2024 13:33-0400 Body mass index (BMI) [Ratio] 27.8 kg/m2 Dr. Thiago Morgan MD Work Phone: [facility] 09-18-2024 13:33-0400 Body temperature 99.3 [degF] Dr. Thiago Morgan MD Work Phone: [facility] 09-18-2024 13:33-0400 Body weight 95.[address] Thiago Morgan MD Work Phone: [facility] 09-18-2024 13:33-0400 Diastolic blood pressure 50 mm[Hg] Dr. Thiago Morgan MD Work Phone: [facility] 09-18-2024 13:33-0400 Heart rate 86 /min Dr. Thiago Morgan MD Work Phone: [facility] 09-18-2024 13:33-0400 Respiratory rate 18 /min Dr. Thiago Morgan MD Work Phone: [facility] 09-18-2024 13:33-0400 SaO2% (BldA) [Mass fraction] 98 % Dr. Thiago Morgan MD Work Phone: [facility] 09-18-2024 13:33-0400 Systolic blood pressure 100 mm[Hg] Dr. Thiago Morgan MD Work Phone: [facility] 09-06-2024 10:46-0400 Heart rate 90 /min Dr. Thiago Morgan MD Work Phone: [facility] 09-06-2024 10:46-0400 Respiratory rate 18 /min Dr. Thiago Morgan MD Work Phone: [facility] 09-06-2024 10:37-0400 Body temperature 97.9 [degF] Dr. Thiago Morgan MD Work Phone: [facility] 09-06-2024 10:37-0400 Diastolic blood pressure 70 mm[Hg] Dr. Thiago Morgan MD Work Phone: [facility] 09-06-2024 10:37-0400 Inhaled oxygen flow rate 2 L/min Dr. Thiago Morgan MD Work Phone: [facility] 09-06-2024 10:37-0400 SaO2% (BldA) [Mass fraction] 94 % Dr. Thiago Morgan MD Work Phone: [facility] 09-06-2024 10:37-0400 Systolic blood pressure 140 mm[Hg] Dr. Thiago Morgan MD Work Phone: [facility] 09-06-2024 03:50-0400 Body mass index (BMI) [Ratio] 28.4 kg/m2 Dr. Thiago Morgan MD Work Phone: [facility] 09-06-2024 03:50-0400 Body weight 97.[address] Thiago Morgan MD Work Phone: [facility] 09-05-2024 16:41-0400 Body height 185.[address] Thiago Morgan MD Work Phone: [facility] 09-03-2024 15:48-0400 Body temperature 98.3 [degF] Dr. Thiago Morgan MD Work Phone: [facility] 09-03-2024 15:48-0400 Diastolic blood pressure 78 mm[Hg] Dr. Thiago Morgan MD Work Phone: [facility] 09-03-2024 15:48-0400 Heart rate 94 /min Dr. Thiago Morgan MD Work Phone: [facility] 09-03-2024 15:48-0400 Respiratory rate 26 /min Dr. Thiago Morgan MD Work Phone: [facility] 09-03-2024 15:48-0400 SaO2% (BldA) [Mass fraction] 91 % Dr. Thiago Morgan MD Work Phone: [facility] 09-03-2024 15:48-0400 Systolic blood pressure 151 mm[Hg] Dr. Thiago Morgan MD Work Phone: [facility] 09-03-2024 14:11-0400 Inhaled oxygen flow rate 2 L/min Dr. Thiago Morgan MD Work Phone: [facility] 09-03-2024 12:32-0400 Body height 185.[address] Thiago Morgan MD Work Phone: [facility] 09-03-2024 12:32-0400 Body mass index (BMI) [Ratio] 28.3 kg/m2 Dr. Thiago Morgan MD Work Phone: [facility] 09-03-2024 12:32-0400 Body weight 97.[address] Thiago Morgan MD Work Phone: [facility] 08-25-2023 10:15-0400 Body height 188 cm Maribell Spence MD Work Phone: [facility] 08-25-2023 10:15-0400 Body temperature 98.2 [degF] Maribell Spence MD Work Phone: [facility] 08-25-2023 10:15-0400 Body weight 98.49 kg Maribell Spence MD Work Phone: [facility] 08-25-2023 10:15-0400 Diastolic blood pressure 72 mm[Hg] Maribell Spence MD Work Phone: [facility] 08-25-2023 10:15-0400 Heart rate 66 /min Maribell Spence MD Work Phone: [facility] 08-25-2023 10:15-0400 Respiratory rate 15 /min Maribell Spence MD Work Phone: [facility] 08-25-2023 10:15-0400 SaO2% (BldA) [Mass fraction] 96 % Maribell Spence MD Work Phone: [facility] 08-25-2023 10:15-0400 Systolic blood pressure 126 mm[Hg] Maribell Spence MD Work Phone: [facility] 02-24-2023 09:57-0400 Body height 188 cm Maribell Spence MD Work Phone: [facility] 02-24-2023 09:57-0400 Body temperature 97.3 [degF] Maribell Spence MD Work Phone: [facility] 02-24-2023 09:57-0400 Body weight 95.62 kg Maribell Spence MD Work Phone: [facility] 02-24-2023 09:57-0400 Diastolic blood pressure 78 mm[Hg] Maribell Spence MD Work Phone: [facility] 02-24-2023 09:57-0400 Heart rate 76 /min Maribell Spence MD Work Phone: [facility] 02-24-2023 09:57-0400 Respiratory rate 18 /min Maribell Spence MD Work Phone: [facility] 02-24-2023 09:57-0400 SaO2% (BldA) [Mass fraction] 97 % Maribell Spence MD Work Phone: [facility] 02-24-2023 09:57-0400 Systolic blood pressure 128 mm[Hg] Maribell Spence MD Work Phone: [facility] 08-19-2022 10:37-0400 Body height 188 cm Maribell Spence MD Work Phone: [facility] 08-19-2022 10:37-0400 Body temperature 97.11 [degF] Maribell Spence MD Work Phone: [facility] 08-19-2022 10:37-0400 Body weight 101.7 kg Maribell Spence MD Work Phone: [facility] 08-19-2022 10:37-0400 Diastolic blood pressure 82 mm[Hg] Maribell Spence MD Work Phone: [facility] 08-19-2022 10:37-0400 Heart rate 82 /min Maribell Spence MD Work Phone: [facility] 08-19-2022 10:37-0400 Respiratory rate 18 /min Maribell Spence MD Work Phone: [facility] 08-19-2022 10:37-0400 SaO2% (BldA) [Mass fraction] 95 % Maribell Spence MD Work Phone: [facility] 08-19-2022 10:37-0400 Systolic blood pressure 138 mm[Hg] Maribell Spence MD Work Phone: [facility] 01-19-2022 09:35-0400 Body height 188 cm Maribell Spence MD Work Phone: [facility] 01-19-2022 09:35-0400 Body temperature 97.81 [degF] Maribell Spence MD Work Phone: [facility] 01-19-2022 09:35-0400 Body weight 101.97 kg Maribell Spence MD Work Phone: [facility] 01-19-2022 09:35-0400 Diastolic blood pressure 84 mm[Hg] Maribell Spence MD Work Phone: [facility] 01-19-2022 09:35-0400 Heart rate 84 /min Maribell Spence MD Work Phone: [facility] 01-19-2022 09:35-0400 Respiratory rate 18 /min Maribell Spence MD Work Phone: [facility] 01-19-2022 09:35-0400 SaO2% (BldA) [Mass fraction] 95 % Maribell Spence MD Work Phone: [facility] 01-19-2022 09:35-0400 Systolic blood pressure 138 mm[Hg] Maribell Spence MD Work Phone: [facility] 04-04-2018 09:45-0400 Body height 185.4 cm Maribell Spence MD Work Phone: [facility] 04-04-2018 09:45-0400 Body weight 103.87 kg Maribell Spence MD Work Phone: [facility] 04-04-2018 09:45-0400 Diastolic blood pressure 84 mm[Hg] Maribell Spence MD Work Phone: [facility] 04-04-2018 09:45-0400 Heart rate 78 /min Maribell Spence MD Work Phone: [facility] 04-04-2018 09:45-0400 Respiratory rate 16 /min Maribell Spence MD Work Phone: [facility] 04-04-2018 09:45-0400 Systolic blood pressure 134 mm[Hg] Maribell Spence MD Work Phone: [facility] Encounters Encounter Date Encounter Type Care Provider Facility Start: 04-16-2025 ambulatory Thiago Morgan Facility :[facility] Start: 03-16-2025 ambulatory Thiago Morgan Facility :[facility] Start: 03-02-2025 End: 03-02-[address] Thiago Morgan MD Work Phone: -Laboratory Start: 03-02-2025 End: 03-02-[address] Issac Dexter MD -Laboratory Work Phone: Start: 03-02-2025 End: 03-02-2025 ambulatory Thiago Morgan Facility:[facility] Start: 02-23-2025 End: 02-23-2025 ambulatory THIAGO MORGAN Facility:[facility] Start: 02-06-2025 ambulatory Thiago Morgan Facility :[facility] Start: 01-19-2025 End: 01-19-[address] Thiago Morgan MD Work Phone: -Ultrasound [facility] Start: 01-19-2025 End: 01-19-[address] Issac Dexter MD -Ultrasound [facility] Work Phone: Start: 01-19-2025 End: 01-19-2025 ambulatory Thiago Morgan Facility:[facility] Start: 01-16-2025 End: 01-22-2025 Telephone encounter [facility] Comment on above: Calling About Referr al - Was It Received? Referral Information Start: 01-11-2025 End: 01-11-[address] Thiago Morgan MD Work Phone: -Laboratory Start: 01-11-2025 End: 01-11-[address] Issac Dexter MD -Laboratory Work Phone: Start: 01-11-2025 End: 01-11-2025 ambulatory Thiago Morgan Facility:[facility] Start: 12-21-2024 End: 12-21-[address] Thiago Morgan MD -[facility] Work Phone: Start: 12-21-2024 End: 12-21-2024 Dr. Thiago Morgan MD -[facility] Work Phone: Start: 12-21-2024 End: 12-21-[address] Thiago Morgan MD Work Phone: -[facility] Start: 12-20-2024 End: 12-20-[address] Thiago Morgan MD Work Phone: -Ultrasound [facility] Start: 12-20-2024 End: 12-20-2024 Patient encounter procedure Rhonda Taylor [facility] -Ultrasound [facility] Work Phone: Start: 12-20-2024 End: 12-20-2024 Rhonda Taylor [employer] -Ultrasound [facility] Work Phone: Start: 12-20-2024 End: 12-20-2024 ambulatory Thiago Morgan Facility:[facility] Start: 12-07-2024 End: 12-07-[address] Thiago Morgan MD Work Phone: -Ultrasound [facility] Start: 12-07-2024 End: 12-07-2024 Patient encounter procedure Rhonda Taylor [employer] -Ultrasound [facility] Work Phone: Start: 12-07-2024 End: 12-07-2024 Rhonda Taylor [employer] -Ultrasound [facility] Work Phone: Start: 12-07-2024 End: 12-07-2024 ambulatory Thiago Morgan Facility:[facility] Start: 12-05-2024 End: 12-05-2024 Patient encounter procedure Rhonda Taylor [employer] -[facility] Work Phone: Start: 12-05-2024 End: 12-05-2024 Rhonda Taylor [employer] -[facility] Work Phone: Start: 12-05-2024 End: 12-05-[address] Thiago Morgan MD Work Phone: -[facility] Start: 11-30-2024 ambulatory Thiago Morgan Facility :[facility] Start: 11-30-2024 Non-patient / Non-visit Dr. Alejandro haro DO -[facility] Start: 11-30-2024 Dr. Alejandro Pritchard DO -[facility] Start: 11-28-2024 End: 11-28-[address] Thiago Morgan MD Work Phone: -Pulmonary Services/Neurology Start: 11-28-2024 End: 11-28-[address] Alejandro Pritchard DO -Pulmonary Services/Neurology Work Phone: Start: 11-28-2024 End: 11-28-2024 Dr. Alejandro Pritchard DO -Pulmonary Services/Neurology Work Phone: Start: 11-27-2024 End: 11-28-[address] Thiago Morgan MD Work Phone: -Ultrasound [facility] Start: 11-27-2024 End: 11-27-2024 Patient encounter procedure Rhonda Taylor [employer] -Ultrasound [facility] Work Phone: Start: 11-27-2024 End: 11-27-2024 Rhonda Taylor [employer] -Ultrasound [facility] Work Phone: Start: 11-27-2024 End: 11-27-2024 ambulatory Thiago Phoenix Facility:[facility] Start: 11-24-2024 Non-patient / Non-visit Ronel winters [facility] -[facility] Start: 11-24-2024 Ronel Sims [facility] -[facility] Start: 11-24-2024 ambulatory Thiago Morgan Facility :[facility] Start: 11-24-2024 End: 11-24-[address] Thiago Morgan MD Work Phone: -Pulmonary Services/Neurology Start: 11-24-2024 End: 11-24-[address] Alejandro Pritchard DO -Pulmonary Services/Neurology Work Phone: Start: 11-24-2024 End: 11-24-2024 Dr. Alejandro Pritchard DO -Pulmonary Services/Neurology Work Phone: Start: 11-24-2024 End: 11-24-2024 ambulatory Thiago Phoenix Facility:[facility] Start: 11-16-2024 Non-patient / Non-visit Ronel winters [facility] -[facility] Start: 11-16-2024 End: 11-16-[address] Thiago Morgan MD Work Phone: [facility] Work Phone: Start: 11-16-2024 End: 11-16-[address] Alejandro Pritchard DO -Ultrasound [facility] Work Phone: Start: 11-16-2024 End: 11-16-2024 Ronel Sims [employer] -[facility] Start: 11-16-2024 End: 11-16-2024 ambulatory [facility] Facility:[facility] Start: 11-07-2024 End: 11-07-[address] Thiago Morgan MD Work Phone: [facility] Work Phone: Start: 11-07-2024 End: 11-07-[address] Alejandro Pritchard DO -Ultrasound [facility] Work Phone: Start: 11-07-2024 End: 11-07-2024 Dr. Alejandro Pritchard DO -Ultrasound [facility] Work Phone: Start: 11-07-2024 End: 11-07-2024 ambulatory [facility] Facility:[facility] Start: 11-02-2024 End: 11-02-[address] Thiago Morgan MD Work Phone: [facility] Work Phone: Start: 11-02-2024 End: 11-02-[address] Alejandro Pritchard DO -Radiology [facility] Work Phone: Start: 11-02-2024 End: 11-02-2024 Dr. Alejandro Pritchard DO -Radiology [facility] Work Phone: Start: 11-02-2024 End: 11-02-[address] Alejandro Pritchard DO -[facility] Work Phone: Start: 11-02-2024 End: 11-02-2024 Dr. Alejandro Pritchard DO -[facility] Work Phone: Start: 11-02-2024 End: 11-02-[address] Thiago Morgan MD Work Phone: [facility] Work Phone: Start: 11-02-2024 End: 11-02-2024 ambulatory Thiago Shethlay Facility:[facility] Start: 10-24-2024 Non-patient / Non-visit [facility]. Davis [facility] Work Phone: Start: 10-24-2024 Dr. Davis [facility] Work Phone: Start: 10-23-2024 Non-patient / Non-visit [facility]. Davis [facility] Work Phone: Start: 10-23-2024 Dr. Davis [facility] Work Phone: Start: 10-23-2024 ambulatory Thiago Shethlay Facility :[facility] Start: 10-23-2024 End: 10-24-2024 Evaluation and management of inpatient Dr. Davis Dougherty DO -Medical Surgical 3 Work Phone: Start: 10-23-2024 End: 10-24-2024 Dr. Davis Dougherty DO -Medical Surgical 3 Work Phone: Start: 09-19-2024 End: 09-19-[address] Thiago Morgan MD Work Phone: [facility] Work Phone: Start: 09-19-2024 End: 09-19-[address] Thiago Morgan MD -Radiology, [place] Work Phone: Start: 09-19-2024 End: 09-19-2024 Dr. Thiago Morgan MD -Radiology [facility] Work Phone: Start: 09-18-2024 End: 09-18-[address] Thiago Morgan MD -Laboratory, [place] Start: 09-18-2024 End: 09-18-2024 Dr. Thiago Morgan MD -Laboratory [place] Start: 09-18-2024 End: 09-18-[address] Thiago Morgan MD -[facility] Work Phone: Start: 09-18-2024 End: 09-18-2024 Dr. Thiago Morgan MD -[facility] Work Phone: Start: 09-18-2024 End: 09-19-2024 ambulatory [facility] Facility:[facility] Start: 09-18-2024 End: 09-18-2024 ambulatory [facility] Facility:[facility] Start: 09-06-2024 Non-patient / Non-visit Dr. Ty montez MD -[facility] Work Phone: Start: 09-06-2024 Dr. Ty Cunningham MD -[facility] Work Phone: Start: 09-05-2024 Non-patient / Non-visit Dr. Ty montez MD -[facility] Work Phone: Start: 09-05-2024 Dr. Ty Cunningham MD -[facility] Work Phone: Start: 09-04-2024 Non-patient / Non-visit Dr. Ty montez MD -[facility] Work Phone: Start: 09-04-2024 Dr. Ty Cunningham MD -[facility] Work Phone: Start: 09-04-2024 ambulatory [facility] Facility :[facility] Start: 09-04-2024 Non-patient / Non-visit Dr. Chaya RODRIGUEZ -[facility] Start: 09-04-2024 Dr. Ankit Bliss MD -[facility] -[facility] Start: 09-03-2024 ambulatory Vibha Matias Facility:[facility] Start: 09-03-2024 End: 09-06-2024 Evaluation and management of inpatient Dr. Vibha Matias MD -[facility] Work Phone: Start: 09-03-2024 End: 09-06-2024 Dr. Ty Cunningham MD -[facility] Work Phone: Start: 04-26-2024 End: 04-26-2024 ambulatory Thiago Cathy Facility:[facility] Start: 04-08-2024 End: 04-10-2024 Refill Maribell Spence MD Work Phone: [facility] Comment on above: Refill Request Start: 04-07-2024 End: 04-07-2024 Refill Maribell Spence MD Work Phone: [facility] Comment on above: Refill Request Start: 01-05-2024 Refill Maribell Mendoza MD Work Phone: [facility] Comment on above: Refill Request Start: 09-22-2023 End: 09-23-2023 ambulatory MARIBELL SPENCE Facility:[id number] Start: 09-21-2023 Telephone encounter Maribell Spence MD Work Phone: [facility] Comment on above: 3 attempts made to s chedule Lung Cancer Screening Start: 08-25-2023 End: 08-25-2023 ambulatory MARIBELL SPENCE Facility:[id number] Start: 08-25-2023 End: 08-25-2023 Office outpatient visit 15 minutes Maribell Spence MD Work Phone: [facility] Comment on above: Lipid screening (Maki kaia Dx); Chronic obstructive pulmonary disease, unspecified COPD type (HCC); Wellness examination; Screening PSA (prostate specific antigen); Screening for deficiency anemia; Tobacco abuse Start: 08-25-2023 End: 08-25-2023 Patient encounter status Maribell Spence MD Work Phone: [facility] Work Phone: Start: 02-24-2023 End: 02-24-2023 ambulatory MARIBELL SPENCE Facility:[id number] Start: 02-24-2023 Encounter for genera l adult medical examination without abnormal findings MARIBELL ARNAUD [facility] Start: 02-24-2023 End: 02-24-2023 Patient encounter procedure Maribell Spence MD Work Phone: [facility] Comment on above: Wellness examination (Primary Dx); Counseling regarding advance directives and goals of care; Encounter for screening for depression; Lipid screening; Screening for deficiency anemia; Screening PSA (prostate specific antigen); Tobacco dependence; Graves disease Start: 02-24-2023 End: 02-24-2023 Patient encounter status Maribell Spence MD Work Phone: [facility] Work Phone: Start: 01-19-2023 Telephone encounter Maribell Spence MD Work Phone: [facility] Comment on above: Refill Request Start: 08-19-2022 End: 08-19-2022 Office outpatient visit 25 minutes Maribell Spence MD Work Phone: [facility] Comment on above: Chronic obstructive pulmonary disease, unspecified COPD type (HCC) (Primary Dx); Graves disease; Wellness examination; Lipid screening; Screening for deficiency anemia; Screening PSA (prostate specific antigen) Start: 08-19-2022 End: 08-19-2022 Patient encounter status Maribell Spence MD Work Phone: [facility] Start: 01-19-2022 Chart abstracting Nurse KILEY [facility] Comment on above: Refill Request Start: 01-19-2022 End: 01-19-2022 Patient encounter procedure Maribell Spence MD Work Phone: [facility] Comment on above: Wellness examination (Primary Dx); Graves disease; Lipid screening; Screening PSA (prostate specific antigen); Screening for deficiency anemia Start: 01-19-2022 End: 01-19-2022 Patient encounter status Maribell Spence MD Work Phone: [facility] Procedures Date Procedure Procedure Detail Performing Clinician Start: 01-19-[address] Thiago lozano MD Work Phone: Start: 12-20-[address] Thiago Morgan MD Work Phone: Comment on above: Performed at: [facility] [id number] [place], [place] [id number] Director: Jluis Marc PhD, Phone: [phone] Start: 12-20-[address] Thiago Morgan MD Work Phone: Comment on above: The atypical pANCA pattern has been obse rved in asignificant percentage of patients with ulcerative colitis,primary sclerosing cholangitis and autoimmune hepatitis.Performed at: [facility] [id number] Director: Jluis Marc PhD, Phone: [phone] Start: 12-20-2024 In-vitro immunologic test Dr. Thiago lozano MD Work Phone: Comment on above: QuantiFERON-TB Gold Plus is a qualitativ e indirect test forM tuberculosis infection (including disease) and isintended for use in conjunction with risk assessment,radiography, and other medical and diagnostic evaluations.The QuantiFERON-TB Gold Plus result is determined bysubtracting the Nil value from either TB antigen (Ag)value. The Mitogen tube serves as a control for the test. No response to M tub erculosis antigens detected.Infection with M tuberculosis is unlikely, but high riskindividuals should be considered for additional testing(ATS/IDSA/CDC Clinical Practice Guidelines, 2017). Thereference range is an Antigen minus Nil result of <0.35IU/mL.The specimen received for QuantiFERON testing was incubatedby the ordering institution. Specific procedures outlinedin our Directory of Services and in the package insert forthe QuantiFERON Gold (In Tube) test must be followed toenable for proper stimulation of cells for the productionof interferon gamma. Chemiluminescence immunoassaymethodology Start: 12-20-[address] Thiago lozano MD Work Phone: Start: 12-07-[address] Thiago read MD Work Phone: Start: 12-07-[address] Thiago Morgan MD Work Phone: Start: 12-07-[address] Thiago Morgan MD Work Phone: Start: 12-07-2024 Microbial culture, body fluid Dr. Thiago Morgan MD Work Phone: Start: 12-07-2024 Blood count leukocyte wbc automated Dr. Thiago Morgan MD Work Phone: Start: 12-07-[address] Thiago sher MD Work Phone: Start: 12-07-[address] Juanita RODRIGUEZ Work Phone: Start: 12-07-2024 Ultrasonic guidance for thoracentesis Dr. Thiago Morgan MD Work Phone: Start: 11-27-[address] Thiago read MD Work Phone: Start: 11-27-[address] Thiago Morgan MD Work Phone: Start: 11-27-2024 Microbial culture, body fluid Dr. Thiago Morgan MD Work Phone: Start: 11-27-2024 Blood count leukocyte wbc automated Dr. Thiago Morgan MD Work Phone: Start: 11-27-[address] Thiago sher MD Work Phone: Start: 11-27-[address] Juanita RODRIGUEZ Work Phone: Start: 11-27-2024 Ultrasonic guidance for thoracentesis Dr. Thiago Morgan MD Work Phone: Start: 11-24-2024 Blood count leukocyte wbc automated Dr. Thiago Morgan MD Work Phone: Start: 11-24-[address] Thiago sher MD Work Phone: Start: 11-24-[address] Juanita RODRIGUEZ Work Phone: Start: 11-24-[address] Thiago read MD Work Phone: Start: 11-24-[address] Thiago Morgan MD Work Phone: Start: 11-24-2024 Microbial culture, body fluid Dr. Thiago Morgan MD Work Phone: Start: 11-24-2024 Plain chest X-ray Dr. Thiago Morgan MD Work Phone: Start: 11-24-2024 Ultrasonic guidance for thoracentesis Dr. Thiago Morgan MD Work Phone: Start: 11-16-2024 Plain chest X-ray Dr. Thiago Morgan MD Work Phone: Start: 11-16-2024 Ultrasonic guidance for thoracentesis Dr. Thiago Morgan MD Work Phone: Start: 11-07-[address] Thiago read MD Work Phone: Start: 11-07-[address] Thiago Morgan MD Work Phone: Start: 11-07-2024 Microbial culture, body fluid Dr. Thiago Morgan MD Work Phone: Start: 11-07-2024 Blood count leukocyte wbc automated Dr. Thiago Morgan MD Work Phone: Start: 11-07-2024 Glucose measurement, body fluid Dr. Simran Morgan MD Work Phone: Start: 11-07-[address] Thiago sher MD Work Phone: Start: 11-07-[address] Juanita RODRIGUEZ Work Phone: Start: 11-07-[address] Thiago Morgan MD Work Phone: Comment on above: Test Ordered: [id number] Flow panel: Leukemi a/LymphomaFlow Interpretation Comment -Y Reference Range: .No immunophenotypic evidence of a monoclonal B cell or aberrant T cellpopulation detected in a limited evaluation. (See comment.)Flow Comment Comment -Y Reference Range: .Assessment of this sample is limited by low viability. Please also notethat Hodgkin lymphoma, certain large cell lymphomas and non-hematopoieticneoplasms cannot be excluded by flow cytometry analysis. Morphologiccorrelation is required for definitive diagnosis. Please refer to thecytology / histology case, if available, for the final diagnosis.Specimen Type Comment -Y Reference Range: .Pleural fluid/chest cavity fluid*includes thoracentesis fluid and pleural effusionAssessment of Leukocytes Comment -Y Reference Range: .No monoclonal B cell population is detected. kappa:lambda ratio 1.3There is no loss of, or aberrant expression of, the rivera T cell antigens tosuggest a neoplastic T cell process.CD4:CD8 ratio 2.0Analysis of the viable lymphoid cells shows: B cells 14%, T cells 86%Viability Comment -Y Reference Range: .10%This sample is less than 50% viable, which does not meet the standard forroutine analysis. Its analysis is being reported because it is anirreplaceable sample. Because of the diminished certainty for the validityof these results, they must be interpreted in the context of morphologicaland all other test results.Analysis and Gating Strategy Comment -Y Reference Range: .8 color analysis with 7-AAD, CD45/SSC gating Technical-Analysis performed at [place] [address], [employer], [address] [place] [address], Director: Aylin Puga, [facility], Phenotype Chart Comment -Y Reference Range: .CD2 Normal CD3 NormalCD4 Normal CD5 NormalCD7 Normal CD8 [id number] Normal CD11b UvmbdkTH67 Normal CD20 [id number] Normal CD38 TymxpsSR56 Normal CD56 PeraweLT24 Normal FMC-7 NormalHLA-DR Normal KAPPA NormalLAMBDA NormalResulting Path Name Comment -Y Reference Range: .Alexus Power M.D.Comment: Comment TG Reference Range: .Each antibody in this assay was utilized to assess forpotential abnormalities of studied cell populations or tocharacterize identified abnormalities.This test was developed and its performance characteristicsdetermined by [employer]. It has not been cleared or approvedby the U.S. Food and Drug Administration.The FDA has determined that such clearance or approval isnot necessary. This test is used for clinical purposes. Itshould not be regarded as investigational or for research.Performed at: -[facility] [id number] [facility], [place], [place] [id number] Director: Aylin Puga [facility], Phone: [phone] at: [facility] [id number] [facility], [facility], [place] [id number] Director: Aylin Puga [facility], Phone: [phone] at: [address] [id number] Director: Jluis Marc PhD, Phone: [phone] Start: 11-07-2024 Ultrasonic guidance for thoracentesis Dr. Thiago Morgan MD Work Phone: Start: 11-07-2024 Plain chest X-ray Dr. Thiago Morgan MD Work Phone: Start: 11-02-[address] Thiago Morgan MD Work Phone: Comment on above: Performed at: [place] [id number] [place], [place] [id number] Director: Jluis Marc PhD, Phone: [phone] Start: 11-02-[address] Thiago Morgan MD Work Phone: Comment on above: The atypical pANCA pattern has been obse rved in asignificant percentage of patients with ulcerative colitis,primary sclerosing cholangitis and autoimmune hepatitis. Start: 11-02-2024 Antibody to centromere measurement Dr. Carmina Morgan MD Work Phone: Comment on above: Test not performed Start: 11-02-2024 Antibody to extractable nuclear antigen measurement Dr. Thiago Morgan MD Work Phone: Comment on above: Test not performed Start: 11-02-2024 Antibody to CANDELARIA-[address] Thiago Morgan MD Work Phone: Comment on above: Test not performed Start: 11-02-2024 Antibody to lupus La protein measurement Dr. Thiago Morgan MD Work Phone: Comment on above: Test not performed Start: 11-02-2024 Antibody to SS-A measurement Dr. Thiago Morgan MD Work Phone: Comment on above: Test not performed Start: 11-02-[address] Thiago nicholson MD Work Phone: Comment on above: Test not performed Start: 11-02-2024 SQL APPLICATION DEVELOPER antibody measurement Dr. Thiago nicholson MD Work Phone: Comment on above: Test not performed Start: 11-02-2024 X-ray of chest, PA and lateral views Dr. Thiago Morgan MD Work Phone: Start: 10-24-2024 Plain chest X-ray Dr. Thiago Morgan MD Work Phone: Start: 10-24-2024 End: 10-24-[address] bacilli culture Dr. Thiago lozano MD Work Phone: Start: 10-24-2024 Blood count smear mcrscp w/mnl difrntl wbc count Dr. Thiago Morgan MD Work Phone: Start: 10-24-2024 Mean corpuscular hemoglobin concentration determination Dr. Thiago Morgan MD Work Phone: Start: 10-24-2024 Nucleated red blood cell count procedure Dr. Thiago Morgan MD Work Phone: Start: 10-24-2024 Platelet mean volume determination Dr. Carmina Morgan MD Work Phone: Start: 10-24-2024 Ultrasonic guidance for thoracentesis Dr. Thiago Morgan MD Work Phone: Start: 10-24-[address] Joyce Morgan MD Work Phone: Start: 10-23-2024 Blood count leukocyte wbc automated Dr. Thiago Morgan MD Work Phone: Start: 10-23-2024 Glucose measurement, body fluid Dr. Simran Morgan MD Work Phone: Start: 10-23-[address] Thiago sher MD Work Phone: Start: 10-23-[address] Juanita RODRIGUEZ Work Phone: Start: 10-23-[address] Thiago read MD Work Phone: Start: 10-23-[address] Thiago Morgan MD Work Phone: Start: 10-23-[address] Thiago Morgan MD Work Phone: Start: 10-23-2024 Microbial culture, body fluid Dr. Thiago Morgan MD Work Phone: Start: 10-23-2024 SARS-CoV-2, Influenza & RSV (PCR) Dr. Juanita RODRIGUEZ Work Phone: Start: 10-23-[address] Thiago Morgan MD Work Phone: Start: 10-23-2024 Dr. Thiago Morgan MD Work Phone: Start: 10-23-2024 Plain chest X-ray Dr. Thiago Morgan MD Work Phone: Start: 10-23-2024 Ultrasonic guidance for thoracentesis Dr. Thiago Morgan MD Work Phone: Start: 10-23-2024 Urine microscopy: red cells Dr. Thiago read MD Work Phone: Start: 10-23-2024 Urnls dip stick/tablet reagent auto microscopy Dr. Thiago Morgan MD Work Phone: Start: 10-23-2024 CT angiography of chest with contrast Dr. Thiago Morgan MD Work Phone: Start: 10-23-2024 End: 10-23-[address] Thiago Morgan MD Work Phone: Start: 10-23-2024 Calculation of international normalized ratio Dr. Thiago Morgan MD Work Phone: Start: 10-23-[address] Joyce Morgan MD Work Phone: Start: 09-19-2024 X-ray of chest, PA and lateral views Dr. Thiago Morgan MD Work Phone: Start: 09-18-2024 Blood count smear mcrscp w/mnl difrntl wbc count Dr. Thiago Morgan MD Work Phone: Start: 09-18-2024 Mean corpuscular hemoglobin concentration determination Dr. Thiago Morgan MD Work Phone: Start: 09-18-2024 Nucleated red blood cell count procedure Dr. Thiago Morgan MD Work Phone: Start: 09-18-2024 Platelet mean volume determination Dr. Carmina Morgan MD Work Phone: Start: 09-06-2024 Blood count smear mcrscp w/mnl difrntl wbc count Dr. Thiago Morgan MD Work Phone: Start: 09-06-[address] Joyce Morgan MD Work Phone: Start: 09-06-2024 Mean corpuscular hemoglobin concentration determination Dr. Thiago Morgan MD Work Phone: Start: 09-06-2024 Nucleated red blood cell count procedure Dr. Thiago Morgan MD Work Phone: Start: 09-06-2024 Platelet mean volume determination Dr. Carmina Morgan MD Work Phone: Start: 09-05-[address] Thiago sher MD Work Phone: Start: 09-05-2024 Serum inorganic phosphate measurement Dr. Thiago Morgan MD Work Phone: Start: 09-05-2024 Total cholesterol:HDL ratio measurement Dr. Thiago Morgan MD Work Phone: Start: 09-04-[address] Thiago Morgan MD Work Phone: Start: 09-04-[address] Thiago Morgan MD Work Phone: Start: 09-03-2024 CT of chest without contrast Dr. Thiago Morgan MD Work Phone: Start: 09-03-[address] Thiago Morgan MD Work Phone: Start: 09-03-2024 Venous oxygen saturation measurement Dr. Thiago Morgan MD Work Phone: Start: 09-03-[address] Thiago Morgan MD Work Phone: Start: 09-03-2024 SARS-CoV-2, Influenza & RSV (PCR) Dr. Juanita RODRIGUEZ Work Phone: Start: 09-03-2024 Dr. Thiago Morgan MD Work Phone: Start: 09-03-2024 X-ray of chest, PA and lateral views Dr. Thiago Morgan MD Work Phone: Start: 02-24-2023 INFLUENZA VACCINE, PRSV FREE, AGE 65+ YR, HIGH DOSE, QUADRIVALENT (FLUZONE HIGH-DOSE) Maribell Spence MD Work Phone: Start: 08-20-2022 Lipid 1996 panel - Serum or Plasma Amilcar Spence MD Work Phone: Start: 01-19-2022 Adult depression screening assessment Maribell Spence MD Work Phone: Start: 06-26-2019 Colonoscopy Maribell Spence MD Work Phone: Plan of Treatment Date Care Activity Detail Author Start: 08-21-2027 Lipid 1996 panel - S russell or Plasma Lipid Screening [facility] Start: 08-21-2027 LIPID SCREEN LIPID SCREEN [facility] Start: 09-21-2026 Diabetes Screening Diabetes Screenin g [facility] Start: 08-20-2025 DIABETES SCREEN DIABETES SCREEN [facility] Start: 08-20-2025 Diabetes Screening Diabetes Screenin g [facility] Start: 02-05-2025 Influenza vaccination Influenza Vacc ine (#1) [facility] Start: 01-19-2025 Patient discharge [facility] Start: 01-19-2025 Vital signs measurements [facility] Start: 12-20-2024 In-vitro immunologic test [facility] Start: 12-20-[address] [facility] Start: 12-20-2024 Patient discharge [facility] Start: 12-20-2024 Vital signs measurements [facility] Start: 12-07-2024 Microscopic observat ion [Identifier] in Body fluid by Cyto stain [facility] Start: 12-07-2024 Patient discharge [facility] Start: 12-07-2024 Vital signs measurements [facility] Start: 12-05-2024 Lactate dehydrogenas e measurement [facility] Start: 12-05-2024 Partial thromboplast in time, activated [facility] Start: 12-05-[address] [facility] Start: 12-05-2024 Prothrombin time [facility] Start: 11-28-2024 Walking distance 6 minutes [facility] Start: 11-27-2024 Anaerobic microbial culture Anaerobic Culture [facility] Start: 11-27-2024 Patient discharge [facility] Start: 11-27-2024 Vital signs measurements [facility] Start: 11-24-2024 Patient discharge [facility] Start: 11-24-2024 Vital signs measurements [facility] Start: 11-24-2024 Measurement of respiratory function [facility] Start: 11-17-2024 Measurement of respiratory function [facility] Start: 11-16-2024 Patient discharge [facility] Start: 11-16-2024 Vital signs measurements [facility] Start: 11-07-2024 Anaerobic Culture Anaerobic Culture [facility] Start: 11-07-2024 End: 11-07-2024 Microbial culture, body fluid [facility] Start: 11-07-2024 Microscopic observat ion [Identifier] in Body fluid by Cyto stain [facility] Start: 11-07-[address] [facility] Start: 11-07-2024 Patient discharge [facility] Start: 11-07-2024 Vital signs measurements [facility] Start: 10-25-2024 Acid fast bacilli culture [facility] Start: 10-24-2024 Patient discharge [facility] Start: 10-24-2024 Microbial culture, b doyle fluid [facility] Start: 10-24-2024 Vital signs measurements [facility] Start: 10-24-2024 Acid Fast Bacilli Culture Acid Fast Bacilli Culture [facility] Start: 10-24-2024 Acid Fast Bacilli Smear Acid Fast Ba cilli Smear [facility] Start: 10-23-2024 Following clinical pathway protocol [facility] Start: 10-23-2024 Ambulation without limitation [facility] Start: 10-23-2024 Assessment of risk o f venous thromboembolism [facility] Start: 10-23-2024 Catheterization of vein [facility] Start: 10-23-2024 Insertion of cathete r into peripheral vein [facility] Start: 10-23-2024 Oxygen therapy [facility] Start: 10-23-2024 Providing care accor ding to standard [facility] Start: 10-23-2024 Referral to occupati onal therapist [facility] Start: 10-23-2024 End: 10-23-2024 Referral to service [facility] Start: 10-23-2024 Respiratory therapy [facility] Start: 10-23-[address] [facility] Start: 10-23-2024 Verification routine [facility] [place] Start: 10-23-2024 Admission procedure [facility] Start: 10-23-2024 Anaerobic Culture Anaerobic Culture [facility] Start: 10-23-2024 Bacteria identified in Blood by Culture Blood Culture [facility] Start: 10-23-2024 Bacteria identified in Urine by Culture Urine Culture [facility] Start: 10-23-2024 Body Fluid Culture Body Fluid Cultur e [facility] Start: 10-23-2024 Microbial culture, b doyle fluid Body Fluid Culture [facility] Start: 10-23-2024 Microscopic observat ion [Identifier] in Unspecified specimen by Gram stain Gram Stain [facility] Start: 10-23-2024 Urine culture [facility] Start: 10-23-2024 Vital signs measurements [facility] Start: 10-23-[address] [facility] Start: 10-23-2024 End: 10-23-2024 [facility] Start: 10-23-2024 Glucose measurement, body fluid [facility] Start: 10-23-2024 Inhalation therapy procedure [facility] Start: 10-23-2024 Microbial culture, b doyle fluid [facility] Start: 09-06-2024 Patient discharge [facility] Start: 09-05-[address] [facility] Start: 09-04-2024 Application of intermittent pneumatic compression device [facility] Start: 09-04-2024 Respiratory microbia l culture Respiratory Culture [facility] Start: 09-04-[address] [facility] Start: 09-04-2024 Elevation of affecte d extremity [facility] Start: 09-04-2024 Notification of physician [facility] Start: 09-04-2024 Patient education [facility] Start: 09-03-2024 Oxygen therapy [facility] Start: 09-03-2024 Following clinical pathway protocol [facility] Start: 09-03-2024 Transfusion of blood product [facility] Start: 09-03-2024 Assessment of risk o f venous thromboembolism [facility] Start: 09-03-2024 Insertion of cathete r into peripheral vein [facility] Start: 09-03-2024 Measuring intake and output [facility] Start: 09-03-2024 Providing care accor ding to standard [facility] Start: 09-03-2024 Provision of activit y privileges [facility] Start: 09-03-2024 Referral to service [facility] Start: 09-03-[address] [facility] Start: 09-03-2024 Admission procedure [facility] Start: 09-03-2024 Verification routine [facility] [place] Start: 09-03-2024 Hospital admission, emergency, from emergency room, medical nature [facility] Start: 09-03-2024 End: 09-03-2024 [facility] Start: 09-03-2024 Inhalation therapy procedure [facility] Start: 08-24-2024 Annual PCP Team Pattern Cutter sukh Disease Visit Annual PCP Team Chronic Disease Visit [facility] Start: 06-07-2024 Advance Directive Discussion Advance Directive Discussion [facility] Start: 06-07-2024 Medicare Advantage A nnual Wellness Visit Medicare Advantage Annual Wellness Visit [facility] Start: 02-25-2024 Annual PCP Team Pattern Cutter sukh Disease Visit Annual PCP Team Chronic Disease Visit [facility] Start: 02-23-2024 End: 02-23-2024 Patient encounter procedure 02/23/2024 11:10 AM EDT Office Visit [facility] [address] [place] [id number] Maribell Spence MD [address] [place], [place] [id number] medicare wellness [facility] Comment on above: medicare wellness Start: 02-06-2024 Covid-19 Vaccine ( season) Covid-19 Vaccine ( season) [facility] Start: 02-06-2024 Influenza vaccination Influenza Vacc ine (#1) [facility] Start: 08-25-2023 End: 11-24-2023 CBC W Auto Differential panel - Blood CBC + DIFF Lab Routine Screening for deficiency anemia Expected: 08/25/2023, Expires: 11/24/2023 [facility] Work Phone: Comment on above: Expected: 08/25/2023 , Expires: 11/24/2023 Start: 08-25-2023 End: 11-24-2023 Comprehensive metabolic 2000 panel - Serum or Plasma COMP METABOLIC PANEL Lab Routine Wellness examination Expected: 08/25/2023, Expires: 11/24/2023 [facility] Work Phone: Comment on above: Expected: 08/25/2023 , Expires: 11/24/2023 Start: 08-25-2023 End: 11-24-2023 Lipid 1996 panel - Serum or Plasma LIPID PANEL BASIC Lab Routine Lipid screening Expected: 08/25/2023, Expires: 11/24/2023 [facility] Work Phone: Comment on above: Expected: 08/25/2023 , Expires: 11/24/2023 Start: 08-25-2023 End: 11-24-2023 PSA/PROSTSPECAG SCRN PSA/PROSTSPECAG SCRN Lab Routine Screening PSA (prostate specific antigen) Expected: 08/25/2023, Expires: 11/24/2023 [facility] Work Phone: Comment on above: Expected: 08/25/2023 , Expires: 11/24/2023 Start: 08-20-2023 ANNUAL PCP TEAM CURRICULUM SUPERVISOR SUKH DISEASE VISIT ANNUAL PCP TEAM CHRONIC DISEASE VISIT [facility] Start: 06-07-2023 Advance Directive Discussion Advance Directive Discussion [facility] Start: 06-07-2023 Behavioral Health Screening Behavioral Health Screening [facility] Start: 06-07-2023 Depression Assessment Depression Ass essment [facility] Start: 04-21-2023 Shingrix Vaccine (2 of 2) [place] grix Vaccine (2 of 2) [facility] Start: 02-24-2023 End: 04-26-2023 CBC W Auto Differential panel - Blood CBC + DIFF Lab Routine Screening for deficiency anemia Expected: 02/24/2023, Expires: 04/26/2023 [facility] Work Phone: Comment on above: Expected: 02/24/2023 , Expires: 04/26/2023 Start: 02-24-2023 End: 04-26-2023 Comprehensive metabolic 2000 panel - Serum or Plasma COMP METABOLIC PANEL Lab Routine Wellness examination Expected: 02/24/2023, Expires: 04/26/2023 [facility] Work Phone: Comment on above: Expected: 02/24/2023 , Expires: 04/26/2023 Start: 02-24-2023 End: 04-26-2023 Lipid 1996 panel - Serum or Plasma LIPID PANEL BASIC Lab Routine Lipid screening Expected: 02/24/2023, Expires: 04/26/2023 [facility] Work Phone: Comment on above: Expected: 02/24/2023 , Expires: 04/26/2023 Start: 02-24-2023 End: 04-26-2023 PSA/PROSTSPECAG SCRN PSA/PROSTSPECAG SCRN Lab Routine Screening PSA (prostate specific antigen) Expected: 02/24/2023, Expires: 04/26/2023 [facility] Work Phone: Comment on above: Expected: 02/24/2023 , Expires: 04/26/2023 Start: 02-24-2023 End: 04-26-2023 Thyrotropin [Units/volume] in Serum or Plasma TSH BLD Lab Routine Graves disease Expected: 02/24/2023, Expires: 04/26/2023 [facility] Work Phone: Comment on above: Expected: 02/24/2023 , Expires: 04/26/2023 Start: 02-05-2023 Covid-19 Vaccine ( season) Covid-19 Vaccine ( season) [facility] Start: 02-05-2023 Influenza vaccination INFLUENZA (#1) [facility] Start: 01-19-2023 Adult depression screening assessment DEPRESSION SCREENING [facility] Start: 01-19-2023 ANNUAL PCP TEAM CURRICULUM SUPERVISOR SUKH DISEASE VISIT ANNUAL PCP TEAM CHRONIC DISEASE VISIT [facility] Start: 08-19-2022 End: 10-19-2022 CBC W Auto Differential panel - Blood CBC + DIFF Lab Routine Screening for deficiency anemia Expected: 08/19/2022, Expires: 10/19/2022 [facility] Work Phone: Comment on above: Expected: 08/19/2022 , Expires: 10/19/2022 Start: 08-19-2022 End: 10-19-2022 Comprehensive metabolic 2000 panel - Serum or Plasma COMP METABOLIC PANEL Lab Routine Wellness examination Expected: 08/19/2022, Expires: 10/19/2022 [facility] Work Phone: Comment on above: Expected: 08/19/2022 , Expires: 10/19/2022 Start: 08-19-2022 End: 10-19-2022 Lipid 1996 panel - Serum or Plasma LIPID PANEL BASIC Lab Routine Lipid screening Expected: 08/19/2022, Expires: 10/19/2022 [facility] Work Phone: Comment on above: Expected: 08/19/2022 , Expires: 10/19/2022 Start: 08-19-2022 End: 10-19-2022 PSA/PROSTSPECAG SCRN PSA/PROSTSPECAG SCRN Lab Routine Screening PSA (prostate specific antigen) Expected: 08/19/2022, Expires: 10/19/2022 [facility] Work Phone: Comment on above: Expected: 08/19/2022 , Expires: 10/19/2022 Start: 08-19-2022 End: 10-19-2022 Thyrotropin [Units/volume] in Serum or Plasma TSH BLD Lab Routine Graves disease Expected: 08/19/2022, Expires: 10/19/2022 [facility] Work Phone: Comment on above: Expected: 08/19/2022 , Expires: 10/19/2022 Start: 08-19-2022 End: 10-19-2022 Thyroxine (T4) free [Mass/volume] in Serum or Plasma T4 FREE/FREE THYROX Lab Routine Graves disease Expected: 08/19/2022, Expires: 10/19/2022 [facility] Work Phone: Comment on above: Expected: 08/19/2022 , Expires: 10/19/2022 Start: 07-19-2022 COVID-19 VACCINE (5 - Pfizer series) COVID-19 VACCINE (5 - Pfizer series) [facility] Start: 06-07-2022 ADVANCE DIRECTIVE DISCUSSION ADVANCE DIRECTIVE DISCUSSION [facility] Start: 06-07-2022 DEPRESSION ASSESSMENT DEPRESSION ASS ESSMENT [facility] Start: 2022 RSV Vaccine (1 - 1-d ose 75+ series) RSV Vaccine (1 - 1-dose 75+ series) [facility] Start: 02-05-2022 Influenza vaccination INFLUENZA (#1) [facility] Start: 01-19-2022 End: 03-21-2022 CBC W Auto Differential panel - Blood CBC + DIFF Lab Routine Wellness examination Screening for deficiency anemia Expected: 01/19/2022, Expires: 03/21/2022 [facility] Work Phone: Comment on above: Expected: 01/19/2022 , Expires: 03/21/2022 Start: 01-19-2022 End: 03-21-2022 Comprehensive metabolic 2000 panel - Serum or Plasma COMP METABOLIC PANEL Lab Routine Wellness examination Expected: 01/19/2022, Expires: 03/21/2022 [facility] Work Phone: Comment on above: Expected: 01/19/2022 , Expires: 03/21/2022 Start: 01-19-2022 End: 03-21-2022 Lipid 1996 panel - Serum or Plasma LIPID PANEL BASIC Lab Routine Lipid screening Expected: 01/19/2022, Expires: 03/21/2022 [facility] Work Phone: Comment on above: Expected: 01/19/2022 , Expires: 03/21/2022 Start: 01-19-2022 End: 03-21-2022 PSA/PROSTSPECAG SCRN PSA/PROSTSPECAG SCRN Lab Routine Screening PSA (prostate specific antigen) Expected: 01/19/2022, Expires: 03/21/2022 [facility] Work Phone: Comment on above: Expected: 01/19/2022 , Expires: 03/21/2022 Start: 08-09-2021 COVID-19 VACCINE (4 - Booster for Pfizer series) COVID-19 VACCINE (4 - Booster for Pfizer series) [facility] Start: 06-26-2021 Colonoscopy COLONOSCOPY [facility] Start: 06-26-2021 COLORECTAL CANCER SCREENING COLORECTAL CANCER SCREENING [facility] Start: 06-07-2021 ADVANCE DIRECTIVE DISCUSSION ADVANCE DIRECTIVE DISCUSSION [facility] Start: 2007 RSV Vaccine (1 - 1-d ose 60+ series) RSV Vaccine (1 - 1-dose 60+ series) [facility] Start: 1997 SHINGRIX VACCINE (1 of 2) [place] GRIX VACCINE (1 of 2) [facility] Start: 1992 COLOGUARD (FIT-DNA) COLOGUARD (FIT-D NA) [facility] Start: [address] COLONOGRAPHY [facility] Start: 1992 DIABETES SCREEN DIABETES SCREEN [facility] Start: 1992 FECAL OCCULT BLOOD FECAL OCCULT BLOO D [facility] Start: 1992 SIGMOIDOSCOPY SIGMOIDOSCOPY [facility] Start: 1982 LIPID SCREEN LIPID SCREEN [facility] Start: 1977 Zoledronic acid therapy ALPHA- 1 ANTITRYPSIN DEFICIENCY SCREENING [facility] Start: 1966 Pneumococcal Vaccine : 50+ (1 of 2 - PCV) Pneumococcal Vaccine: 50+ (1 of 2 - PCV) [facility] Start: 1966 Urine microalbumin profile [facility] Start: 1965 Anxiety Screening Anxiety Screening [facility] Start: 1965 Depression Screening Depression Scre ening [facility] Start: 1965 HEPATITIS C SCREENING HEPATITIS C [facility] Start: 1965 Hepatitis C screening Hepatitis C [facility] Start: 1965 SPIROMETRY SPIROMETRY [facility] Start: 1953 Pneumococcal Vaccine : 65+ (1 - PCV) Pneumococcal Vaccine: 65+ (1 - PCV) [facility] Start: 1953 Pneumococcal Vaccine : 65+ (1 of 2 - PCV) Pneumococcal Vaccine: 65+ (1 of 2 - PCV) [facility] Start: 1953 PNEUMOCOCCAL: 65+ (1 - PCV) PNEUMOCOCCAL: 65+ (1 - PCV) [facility] Start: 1947 ABDOMINAL AORTIC ANE URYSM SCREENING ABDOMINAL AORTIC ANEURYSM SCREENING [facility] Acid fast bacilli culture [facility] Bacteria identified in Body fluid by Culture [facility] Bacteria identified in Body fluid by Culture [facility] Bacteria identified in Sputum by Culture [facility] Bacteria identified in Unspecified specimen by Anaerobe culture [facility] Bacteria identified in Unspecified specimen by Anaerobe culture [facility] Bacteria identified in Unspecified specimen by Anaerobe culture [facility] Body fluid analysis [facility] Cell count and Differential panel - Body fluid [facility] End: 02-21-2026 CT Chest WO contrast CT CHEST [facility] Radiology Routine Chronic obstructive pulmonary disease, unspecified COPD type (HCC) Pleural effusion 1 Occurrences starting 01/22/2025 until 02/21/2026 [facility] Work Phone: Comment on above: 1 Occurrences starti ng 01/22/2025 until 02/21/2026 Cyclic citrullinated peptide IgG Ab [Units/volume] in Serum or Plasma [facility] Cytology report of B doyle fluid Cyto stain [facility] Cytology report of B doyle fluid Cyto stain [facility] Cytology report of B doyle fluid Cyto stain [facility] Cytoplasmic ANCA Screen [facility] DNA double strand Ab [Units/volume] in Serum [facility] Fungus identified in Unspecified specimen by Fungus stain [facility] Glucose measurement, body fluid [facility] Laboratory data interpretation [facility] Lactate dehydrogenas e [Enzymatic activity/volume] in Body fluid by Pyruvate to lactate reaction [facility] Lactate dehydrogenas e measurement [facility] Measurement of respiratory function [facility] Microbial culture, b doyle fluid [facility] Microscopic observat ion [Identifier] in Body fluid by Cyto stain [facility] Microscopic observat ion [Identifier] in Body fluid by Cyto stain [facility] Microscopic observat ion [Identifier] in Body fluid by Cyto stain [facility] Microscopic observat ion [Identifier] in Unspecified specimen by Acid fast stain [facility] Microscopic observat ion [Identifier] in Unspecified specimen by Acid fast stain [facility] Microscopic observat ion [Identifier] in Unspecified specimen by Gram stain [facility] Microscopic observat ion [Identifier] in Unspecified specimen by Gram stain [facility] Mycobacterium sp identified in Unspecified specimen by Organism specific culture [facility] Mycobacterium tuberculosis tuberculin stimulated gamma interferon [Presence] in Blood [facility] Neutrophil cytoplasm ic Ab.classic [Units/volume] in Serum [facility] Nuclear Ab [Presence ] in Serum [facility] P-ANCA measurement [facility] Patient Education [facility] Work Phone: Patient referral [facility] Work Phone: Protein [Mass/volume ] in Body fluid [facility] Protein [Mass/volume ] in Serum or Plasma [facility] Protein [Mass/volume ] in Serum or Plasma [facility] Rheumatoid factor [Presence] in Serum [facility] Specimen description [facility] Specimen processing [facility] Thyroid stimulating hormone measurement [facility] Troponin T.cardiac [Mass/volume] in Serum or Plasma by High sensitivity method [facility] Troponin T.cardiac [Mass/volume] in Serum or Plasma by High sensitivity method [facility] Ultrasonic guidance for thoracentesis [facility] Walking distance 6 minutes [facility] XR Chest PA and Lateral [facility] Immunizations Immunization Date Immunization Notes Care Provider Fa cility 07-12-2024 influenza, high dose seasonal, preservative-free Dr. Thiago Morgan MD Work Phone: [facility] 07-12-2024 RSV Adult Recombinan t (Arexvy) Dr. Thiago Morgan MD Work Phone: [facility] 07-12-2024 influenza virus vaccine, unspecified formulation Hvi Surgery [facility] 02-24-2023 influenza (HD-IIV4) vaccine, age 65+ yr, high dose, quadrivalent, PF (FLUZONE HIGH-DOSE) Maribell Spence MD Work Phone: [facility] 02-24-2023 zoster vaccine recombinant Maribell Spence MD Work Phone: [facility] 02-24-2023 influenza virus vaccine, unspecified formulation Maribell Spence MD Work Phone: [facility] 03-18-2022 COVID-19 vaccine, ag e 12+ yr, bivalent (PFI[employer]ER-BIONTWAMBIZ [employer].) Maribell Spence MD Work Phone: [facility] 03-18-2022 influenza (HD-IIV4) vaccine, age 65+ yr, high dose, quadrivalent, PF (FLUZONE HIGH-DOSE) Maribell Spence MD Work Phone: [facility] 04-11-2021 COVID-19 original vaccine, age 12+ yr, monovalent (PFIZER-BIONTECH - PURPLE TOP) Maribell Spence MD Work Phone: [facility] 07-31-2020 COVID-19 original vaccine, age 12+ yr, monovalent (PFIZER-BIONTECH - PURPLE TOP) Maribell Spence MD Work Phone: [facility] 07-10-2020 COVID-19 original vaccine, age 12+ yr, monovalent (PFIZER-BIONTECH - PURPLE TOP) Maribell Spence MD Work Phone: [facility] Payers Date Payer Category Payer Self-pay 2021 [place] [employer] [place] [id number] 2021-Present [phone] [address] [place] [address] [facility] [id number] 2021 [place] Care[place] [id number] 2021 Medicare [id number] Medicare [id number] Unknown [id number] .1.421235.3.579. 2.462 Unknown [id number] .1.105499.3.579. 2.462 Unknown [id number] 2.16.840.1.467749.3.579. 2.462 Unknown [id number] 2.16.840.1.287193.3.579. 2.462 Unknown [id number] 2.16.840.1.124671.3.579. 2.462 Unknown [id number] 2.16.840.1.095289.3.579. 2.462 Unknown [id number] 2.16.840.1.127760.3.579. 2.462 Unknown [id number] 2.840.1.960194.3.579. 2.462 Unknown [id number] 2.840.1.243804.3.579. 2.462 Unknown [id number] 2.840.1.705269.3.579. 2.462 Unknown [id number] 2.840.1.355976.3.579. 2.462 Unknown [id number] 2.840.1.116732.3.579. 2.462 Unknown [id number] 2.840.1.353984.3.579. 2.462 Unknown [id number] 2.840.1.160464.3.579. 2.462 Unknown [id number] 2.840.1.741088.3.579. 2.462 Unknown [id number] 2.840.1.855922.3.579. 2.462 Unknown [id number] 2.840.1.890293.3.579. 2.462 Unknown [id number] 2.16.840.1.895873.3.579. 2.462 Unknown [id number] 2.840.1.807866.3.579. 2.462 Unknown [id number] 2.16840.1.419970.3.579. 2.462 Unknown [id number] 2.840.1.015373.3.579. 2.462 Unknown [id number] 2.16.840.1.390877.3.579. 2.462 Unknown [id number] 2.16.840.1.067352.3.579. 2.462 Unknown [id number] 2.16.840.1.657454.3.579. 2.462 Unknown [id number] 2.16.840.1.343090.3.579. 2.462 Unknown [id number] 2.16.840.1.129632.3.579. 2.462 Unknown [id number] 2.16.840.1.966474.3.579. 2.462 Unknown [id number] 2.16.840.1.320250.3.579. 2.462 Unknown [id number] 2.16.840.1.802136.3.579. 2.462 Unknown [id number] 2.16.840.1.137531.3.579. 2.462 Unknown [id number] 2.16.840.1.855539.3.579. 2.462 Unknown [id number] 2.16.840.1.738730.3.579. 2.462 Unknown [id number] 2.16.840.1.147356.3.579. 2.462 Unknown [id number] 2.16.840.1.146714.3.579. 2.462 Unknown [id number] 2.16.840.1.368699.3.579. 2.462 Social History Date Type Detail Facility Start: 01-19-2022 End: 09-03-2024 Tobacco smoking status NHIS Smokes tobacco daily [facility] History of tobacco use Cigarette Smoker C [facility] Start: 01-19-2022 End: 02-24-2023 Cigarettes smoked current (pack per day) - Reported 1 [facility] Start: 01-19-2022 Tobacco use and exposure Smokeless tobacco non-user [facility] Start: 01-19-2022 End: 08-25-2023 Alcohol intake Current drinker of alcohol (finding) [facility] Start: 07-29-2011 History SDOH Alcohol Comment occasional [facility] Start: 1945 Sex Assigned At Not on file C [facility] Start: 01-09-2022 End: 01-19-2022 Exposure to SARS-CoV-2 (event) Not sure [facility] Start: 08-19-2022 End: 02-24-2023 Tobacco use panel [facility] Start: 05-08-2012 Adult Depression Screening Assessment 0 [facility] Has the check24, or [employer] threatened to shut off services in your home in past 12Mo No [facility] Are you now , , , , never or living with a partner? [facility] How often to you hav e a drink containing alcohol? Never [facility] Do you feel stress - tense, restless, nervous, or anxious, or unable to sleep at night because your mind is troubled all the time - these days [OSQ] Not at all [facility] (I/We) worried whejammie er (my/our) food would run out before (I/we) got money to buy more. Never true [facility] Start: 09-03-2024 End: 09-24-2024 Sex Male (finding) [facility] Start: 1945 Sex Assigned At Male W [facility] Start: 10-23-2024 End: 12-05-2024 Tobacco smoking status NHIS Ex-smoker (finding) [facility] Goals Date Patient Goal Desired Activity /State Functional Status Date Assessment Result Facility 10-24-2024 Functional status Ambulates;Chair [facility] Work Phone: 09-06-2024 Functional status Ambulates;Up ad jenelle;Yadira ir [facility] Work Phone: Mental Status Date Assessment Result Facility 12-20-2024 Cognitive function Awake;Alert;Appropriat e [facility] Work Phone: 12-07-2024 Cognitive function Awake;Alert;A ppropriate;Shayna anaya Commands [facility] Work Phone: 11-27-2024 Cognitive function Awake;Alert;A ppropriate;Shayna anaya Commands [facility] Work Phone: 11-24-2024 Cognitive function Awake;Alert;Appropriat e [facility] Work Phone: 11-16-2024 Cognitive function Awake;Alert;A ppropriate;Follo ws Commands [facility] Work Phone: 11-07-2024 Cognitive function Awake;Alert;A ppropriate;Follo ws Commands [facility] Work Phone: 10-24-2024 Cognitive function Awake;Alert;Appropriat e [facility] Work Phone: 10-24-2024 Cognitive function Appropriate;Cooperativ e [facility] Work Phone: 10-23-2024 Cognitive function Voice/Name [facility] Work Phone: 10-23-2024 Cognitive function Level Of Cons ciousness Awake;Alert;Appropriate [facility] Work Phone: 09-06-2024 Cognitive function Voice/Name [facility] Work Phone: Clinical Notes 01-19-2022 to 02-23-2025 Telephone Encounter - Clementine Monae RN - 01/22/2025 12:32 PM EDTTelephone Encounter - Clementine Monae RN - 01/22/2025 12:32 PM EDTTelephone Encounter - Rosanna Hanna - 01/16/2025 2:59 PM EDT Note Date & Type Note Facility 02-23-2025 Note HNO ID: [id number] Author: TOVA ANNA MD, PhD Service: ? Author Type: Physician Type: Progress Notes Filed: 02/23/2025 16:03 Note Text: [facility] STAFF PHYSICIAN NOTE OF PERSONAL INVOLVEMENT IN CARE I have reviewed the documentation obtained and documented by the Resident and I have personally performed a face to face assessment of the patient and have personally participated in the meyers components of the visit which includes medical decision making.. I have discussed the case and management of the patient's care. I wish to add the following findings which have been dictated and will be communicated back to the requesting physician. STAFF PHYSICIAN: Tova Anna MD, PhD DATE OF SERVICE: February 23, 2025 TIME OF SERVICE: 4:02 PM [facility] 02-23-2025 Note HNO ID: [id number] Author: CIRO ROMERO MD Service: ? Author Type: Fellow Type: Progress Notes Filed: 02/23/2025 16:03 Note Text: [facility] THORACIC SURGERY OUTPATIENT CONSULT NOTE Eduard Russell [id number] [facility] Physician: Tova Anna MD Chief Complaint: Recurrent pleural effusions Impression: 79 year old male with COPD, 40py smoking hx quit 08/2024 with recurrent pleural effusions and new oxygen requirement Plan: -Repeat CT today with marked improvement in effusions, small loculations. Low risk of recurrence, recommend ongoing management by Pulmonology and follow up only as needed SIGNATURE: Ciro Romero MD DATE of SERVICE: 02/23/2025 TIME of SERVICE: 2:45 PM HPI: Eduard Russell is a 79 year old who presents today with recurrent pleural effusions. He reports he has a history of COPD which was well managed for many years until 08/2024. He then developed worsening shortness of breath and he presented to the hospital where he was found to have a large bilateral L>R pleural effusion. He underwent thoracentesis with improvement in his symptoms. He has since had multiple recurrences of his effusions bilaterally. These have required 7 thoracentesis which he underwent at [facility]. Per review of the available records and his 's report, there has been no identified cause of his recurrent effusions. He reports he has had an echo with a normal EF and requires no diuretics. He denies any fevers and has had no growth of pleural cultures or evidence of TB infection. Despite improvement in the size of his effusions he remains with a new oxygen requirement of 2L at rest, 4L with activity. He presents today to discuss pleural biposy and possible pleurodesis. (document at least 4 of these elements) Location: Dyspnea Quality: chronic Severity: moderate Timing: constant and with worsening effusions ECOG Score: 2 Living arrangement: Lives with family/friend Functional status: Independent Unintentional weight loss over last 3 months: No PAST MEDICAL HISTORY Diagnosis Date Asthma COPD (chronic obstructive pulmonary disease) (HCC) Grave's disease Tobacco abuse PAST SURGICAL HISTORY Procedure Laterality Date SEPTOPLASTY ~1999 nasal SHOULDER ARTHROSCOPY/SURGERY age 42 FAMILY HISTORY Problem Relation Age of Onset Cancer Mother Colon Cancer Mother Alzheimer's Disease Mother Heart disease Father Coronary Artery Disease Father 71 fatal ID SOCIAL HISTORY[1] ALLERGIES Allergen Reactions Shellfish Anaphylaxis Asbestos Exposure No PHYSICAL EXAM BP 135/72 Pulse 101 Temp 37.6 ?C (99.7 ?F) (Temporal) Ht 188 cm (6' 2") Wt 98.2 kg (216 lb 6.4 oz) SpO2 93% BMI 27.78 kg/m? Neck: No masses and No cervical, supraclavicular, or axillary adenopathy Resp: Clear and Rhonchi Cardiovascular: Regular rate AND rhythm GI: Soft and Non-tender Neurological/Psychiatric: Oriented to time, place AND person Additional relevant findings: None DATA: Radiology: CT chest 02/13/2025 Read pending, bilateral pleural effusions markedly smaller in size from prior imaging, loculated PFTs 11/24/24, reviewed from OSH FEV1 1.38L, 42% predicted; FVC 56% predicted, DLCO 55% Pleural fluid studies with atypical cells, eosinophilia, elevated ESR and CRP I have personally reviewed the following images/data: Chest X-ray, CT scan, and PFT/screening kehinde Outside Paper Medical Records Review personally performed by: Ciro Romero [1] Social History Tobacco Use Smoking status: Former Current packs/day: 0.00 Types: Cigarettes Quit date: 08/09/2024 Years since quittin.5 Smokeless tobacco: Never Vaping Use Vaping status: Never Used Substance Use Topics Alcohol use: Yes Comment: occasional Drug use: Not Currently [facility] 02-23-2025 Note HNO ID: [id number] Author: ?, ?, ? Service: Radiology Author Type: ? Type: Progress Notes Filed: 02/23/2025 13:19 Note Text: Radiology Service Progress Note PATIENT NAME: Eduard Russell DATE OF SERVICE: February 23, 2025 TIME: 1:15 PM PATIENT IDENTITY VERIFICATION COMPLETED USING TWO (2) IDENTIFIERS: Name and Date of confirmed by patient verbally and Name and Date of confirmed by identification band. FALL SCREENING: Has the patient had 2 falls in the last year or 1 fall with injury or currently using an Ambulatory Assistive Device (Walker, Cane, Wheelchair, Crutches, etc.)? No PATIENT GENDER DATA: Assigned male at PATIENT RELEVANT IMPLANT DATA REVIEWED: Not Applicable PATIENT PRESENTS WITH AN IMPLANTABLE OR ATTACHED CHIPPER: No RADIOLOGY DEPARTMENT: CT; Exam(s) Completed: Chest. Anesthesia: No PERIPHERAL IV DATA: Not applicable SIGNED BY: Verónica Roman Ct February 23, 2025 1:15 PM [facility] 02-23-2025 Note HNO ID: [id number] Author: TOVA ANNA MD, PhD Service: Thoracic Surgery Author Type: Physician Type: Progress Notes Filed: 02/26/2025 12:31 Note Text: [place] [id number] [place] DEPARTMENT OF THORACIC AND CARDIOVASCULAR SURGERY NAME: EDUARD RUSSELL CLINIC #: [id number] DATE: 02/23/2025 AGE: 79 PHYSICIAN: Tova Anna M.D., Ph.D. I had the sincere pleasure of seeing the patient and his family in our Thoracic Clinic today. 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 Medical history and review of systems have been studied. I have also independently reviewed images from a variety of different chest radiograms and chest CT scans. I have studied pulmonary function tests including spirometry, DLCO, and walk oximetry. I have assessed the patient with my care team here at [facility] as well. In brief, this very pleasant former heavy smoker with recent cessation has a long history of chronic obstructive lung disease. He has perhaps a 30-40 pack-year tobacco history. He also has a diagnosis of Graves disease. He was in his usual state of reasonable health until he developed respiratory illness in August. This led to a series of problems that manifest as recurrent pleural effusions, ultimately mandating multiple thoracentesis. He was having routine thoracentesis almost every other week until December where he had his last high-volume thoracentesis. An attempt in January was performed with essentially no retrieval of fluid and he has not had any additional interventions up until the present time. His CT scan did recently done demonstrates small loculated bilateral effusion with pleural signs suggestive of some element of lung entrapment. He is now oxygen dependent. He has restrictive lung disease with an FEV1 of 42% and a DLCO that is severely depressed. He desaturates now when he walks. He has no obvious masses on his most recent CT scan. IMPRESSION: Bilateral pleural effusions in the setting of some sort of inflammatory disease. The patient's sedimentation rate is elevated, though I am not sure what the consequence or sequela of that is in relation to what is going on in this thorax. I am comforted by finding that his effusions have largely self-limited at this point and I would be surprised if he is not fully pleurodesed say for the bases of his lungs. 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 However, there was not enough fluid or entrapment to suggest that a decortication would be of significant benefit, especially in a man who likely has significant underlying parenchymal issues. I will reach out to Dr. Dexter. Pulmonary rehab might be a very reasonable intervention at this point. If Dr. Dexetr thinks that a pleural biopsy would be indicated, I would be happy to move down that avenue, though I do not think we will recruit enough lung to think that the patient would come off oxygen. I will nonetheless follow with a CT scan in 2 months to make sure that his pleural disease does not continue to evolve and perhaps gradually recedes. It was a pleasure seeing him today. Tova Anna M.D., Ph.D. SM:[id number] /[id number] [facility] 01-22-2025 Telephone encounter Note Images from the original note were not included. Thoracic Surgery Consultation - review of records for appointment scheduling Received medical records from the office of Issac Dexter MD ([facility]) [place] [address] Patient is being referred to Tova Anna M.D., Ph. D. by Issac Dexter V for Pleural Effusion Outside hospital records Care Everywhere Pathology: Procedures: 11/27/24 thoracentesis 895 cc out Imaging cxr 11/24/24 post thoracentesis Cardiopulmonary Testing PFT's/Six: need report from [facility]: any testing? Office Notes/Consults 01/11/2025 External Document(s) - Office Notes (01/11/2025) 12/20/24 sibiliaExternal Document(s) - Office Notes (12/20/2024) History of: FAMILY HISTORY Problem Relation Age of Onset Cancer Mother Colon Cancer Mother Alzheimer's Disease Mother Heart disease Father Coronary Artery Disease Father 71 fatal ID PAST MEDICAL HISTORY Diagnosis Date Asthma COPD (chronic obstructive pulmonary disease) (HCC) Grave's disease Tobacco abuse PAST SURGICAL HISTORY Procedure Laterality Date SEPTOPLASTY ~1999 nasal SHOULDER ARTHROSCOPY/SURGERY age 42 SOCIAL HISTORY[1] Request consult with dr anna ct chest hold on p/d/s given pt effusions Clementine Monae RN [1] Social History Tobacco Use Smoking status: Every Day Current packs/day: 1.00 Types: Cigarettes Smokeless tobacco: Never Vaping Use Vaping status: Never Used Substance Use Topics Alcohol use: Yes Comment: occasional Drug use: Not Currently [facility] 01-22-2025 Miscellaneous Notes Images from the original note were not included. Thoracic Surgery Consultation - review of records for appointment scheduling Received medical records from the office of Issac Dexter MD ([facility]) [facility] [place] [facility] [address] Patient is being referred to Tova Anna M.D., Ph. D. by Issac eDxter V for Pleural Effusion Outside hospital records Care Everywhere Pathology: Procedures: 11/27/24 thoracentesis 895 cc out Imaging cxr 11/24/24 post thoracentesis Cardiopulmonary Testing PFT's/Six: need report from [facility]: any testing? Office Notes/Consults 01/11/2025 External Document(s) - Office Notes (01/11/2025) 12/20/24 sibiliaExternal Document(s) - Office Notes (12/20/2024) History of: FAMILY HISTORY Problem Relation Age of Onset Cancer Mother Colon Cancer Mother Alzheimer's Disease Mother Heart disease Father Coronary Artery Disease Father 71 fatal ID PAST MEDICAL HISTORY Diagnosis Date Asthma COPD (chronic obstructive pulmonary disease) (HCC) Grave's disease Tobacco abuse PAST SURGICAL HISTORY Procedure Laterality Date SEPTOPLASTY ~1999 nasal SHOULDER ARTHROSCOPY/SURGERY age 42 SOCIAL HISTORY[1] Request consult with dr anna ct chest hold on p/d/s given pt effusions Clementine Monae RN [1] Social History Tobacco Use Smoking status: Every Day Current packs/day: 1.00 Types: Cigarettes Smokeless tobacco: Never Vaping Use Vaping status: Never Used Substance Use Topics Alcohol use: Yes Comment: occasional Drug use: Not Currently Received requested radiology imaging Images viewable in [employer] Encounter routed to [facility]'s for further review Ania Sanchez Confirmed patient's insurance already in the system and verified. Insurance Card(s) scanned into Epic External Correspondence - Insurance Card (01/16/2025) External Correspondence - Face Sheet (01/16/2025) External Correspondence - Face Sheet (01/16/2025) Please update/review registration Thank You! Images from the original note were not included. LOCAL PATIENT Received Fax referring patient Eduard Russell is being referred to Tova Anna M.D., Ph. D. by Issac Dexter MD ([facility]) [facility] [address] [facility] [address] Patient diagnosis/Reason for consult: Recurrent Pleural Effusion Referral triage process explained: No Patient will receive a call from Thoracic NPM after triage review with surgeon to discuss any additional testing and/or consults that will be scheduled. Pt will then receive a call from our scheduling office for scheduling. Please call pt at [phone]. Patient was informed consultation could be at [place] or [facility] [place]: No Patient Registration: Registration complete/updated: no Insurance card(s) scanned in [facility] with in the past year: Yes: Date: 01/16/2025 Pt's [employer] is active. Ok to communicate to pt via [employer]ce not asked Medical Records: Records in [facility] (internal CC records): Yes Imaging in [facility] (internal [facility] records): Yes Care Everywhere - queried yes, downloaded Yes Linked Outside Organizations (list): OSH Records Requested: yes Outside Hospital(s) requested records from: Dr. Dexter's office Received: no Uploaded: No. Waiting on additional records: Yes. Missing (list): Echo Report Radiology Report(s) Pathology Report(s) OSH Pathology Slides Requested: no OSH Radiology Imaging Requested: yes Outside Hospital(s) requested imaging from: Dr. Dexter's office. Received: no Imaging uploaded: No Waiting on additional: Yes. Missing (list): CT and XR Additional providers added to Care Teams: No Additional Notes/Comments: Enct to be routed to [facility] once insurance cards are viewable Enct routed to: No Ania Sanchez documented in this encounter [facility] 01-22-2025 Telephone encounter Note Received requested radiology imaging Images viewable in [facility] Encounter routed to [facility]'s for further review Ania Sanchez [facility] Work Phone: 01-22-2025 Radiology Diagnostic study note [facility] Imaging Services [address] [place] [address] [id number] Chest MR#: [id number] Acct: [id number] Name: EDUARD RUSSELL Rep #: [id number] : 1945 M 79 From: Jose Weems MD PCP: Dr. Thiago Morgan MD Status: REG CLI Study:Chest Date of Exam: 01/19/25 Exam# [id number] Ordering Dr: Issac Dexter MD PROCEDURE: CHEST 01/19/2025 REASON FOR EXAM: PE Assessment for possible thoracentesis. TECHNIQUE: CHEST Imaging of the right and left pleural spaces performed. COMPARISON: None US/Chest IMPRESSION: Not enough fluid for safe paracentesis. Reading Location: [id number] CC: Dr. Thiago Morgan MD; Dr. Issac Dexter MD ~ It Architecture Consultant: Signed [facility] 01-16-2025 Telephone encounter Note Confirmed patient's insurance already in the system and verified. [facility] 01-16-2025 Telephone encounter Note Insurance Card(s) scanned into [employer] External Correspondence - Insurance Card (01/16/2025) External Correspondence - Face Sheet (01/16/2025) External Correspondence - Face Sheet (01/16/2025) Please update/review registration Thank You! [facility] 01-16-2025 Telephone encounter Note Images from the original note were not included. LOCAL PATIENT Received Fax referring patient Eduard Russell is being referred to Tova Anna M.D., Ph. D. by Issac Dexter MD ([facility]) Valeria Garcia [facility] [id number] Patient diagnosis/Reason for consult: Recurrent Pleural Effusion Referral triage process explained: No Patient will receive a call from Thoracic NPM after triage review with surgeon to discuss any additional testing and/or consults that will be scheduled. Pt will then receive a call from our scheduling office for scheduling. Please call pt at [phone]. Patient was informed consultation could be at [place] or [facility]: No Patient Registration: Registration complete/updated: no Insurance card(s) scanned in [facility] with in the past year: Yes: Date: 01/16/2025 Pt's Plyce is active. Ok to communicate to pt via Plyce not asked Medical Records: Records in [facility] (internal CC records): Yes Imaging in [facility] (internal CC records): Yes Care Everywhere - queried yes, downloaded Yes Linked Outside Organizations (list): OSH Records Requested: yes Outside Hospital(s) requested records from: Dr. Dexter's office Received: no Uploaded: No. Waiting on additional records: Yes. Missing (list): Echo Report Radiology Report(s) Pathology Report(s) OSH Pathology Slides Requested: no OSH Radiology Imaging Requested: yes Outside Hospital(s) requested imaging from: Dr. Dexter's office. Received: no Imaging uploaded: No Waiting on additional: Yes. Missing (list): CT and XR Additional providers added to Care Teams: No Additional Notes/Comments: Enct to be routed to [facility] once insurance cards are viewable Enct routed to: No Ania Sanchez [facility] 01-16-2025 Telephone encounter Note Cuca from Guerita's office called to see if referral has been received. She said it was faxed on 01/11. Checked with Ania Galicia Said it was received. Reports and radiology imaging is needed. Advised Cuca to send all to: [phone] Dr Guerita Thurman - Communications Representative [address], [place], [place] [address] [facility] 01-16-2025 Miscellaneous Notes Cuca from Guerita's office called to see if referral has been received. She said it was faxed on , 01/11. Checked with Ania Galicia Said it was received. Reports and radiology imaging is needed. Advised Cuca to send all to: [phone] Dr Guerita Thurman - Communications Representative [address], [place] [address] documented in this encounter [facility] 12-20-2024 Radiology Diagnostic study note [facility] 12-07-2024 Radiology Diagnostic study note [facility] Imaging Services [address] [place] [address] Thoracentesis W US MR#: [id number] Acct: [id number] Name: EDUARD RUSSELL Rep #: [id number] : 1945 M 79 From: Inocencio Vigil MD PCP: Dr. Thiago Morgan MD Status: REG CLI Study:Thoracentesis W US Date of Exam: 0 12/07/24 Exam# [id number] Ordering Dr: Lorne Taylor BOAT PULLER BOAT PULLER-C PROCEDURE: THORACENTESIS W US 12/07/2024 REASON FOR EXAM: RECURRENT PLEURAL EFFUSION BILATERAL TECHNIQUE: Right THORACENTESIS W US COMPARISON: None. FINDINGS: Initial imaging demonstrated a small left pleural fluid collection and a somewhat larger right pleural fluid collection. Unfortunately, the right pleural fluid collection consistent of numerous loculated areas. Given the fact that this was a diagnostic study (at least in part) and of the left pleural fluid collection wasthe last area aspirated (and also sent to laboratory for evaluation), was elected to do a right-sided thoracentesis. Following informed consent, and using standard sterile technique, an ultrasound-guided right thoracentesis was performed via a posterior approach. 2% lidocaine local anesthesia was followed by placement of a 5 Turkmen catheter into the right pleural space. A combined total of 45 mL of clear yellow fluid collection was aspirated from at least 4 adjacent loculated right pleural fluid collections, and sent to laboratory for evaluation. US/Thoracentesis W US IMPRESSION: Successful diagnostic right thoracentesis. Laboratory results pending. Reading Location: [facility] CC: YASMIN Taylor; Dr. Thiago Morgan MD ~ It Architecture Consultant: Signed [facility] 11-30-2024 Procedure note [facility] 11-27-2024 Radiology Diagnostic study note [facility] Imaging Services [address] [place], [place] [address] Thoracentesis W US MR#: [id number] Acct: [id number] Name: EDUARD RUSSELL Rep #: : 1945 M 79 From: Inocencio Vigil MD PCP: Dr. Thiago Morgan MD Status: REG CLI Study:Thoracentesis W US Date of Exam: 0 11/27/24 Exam# [id number] Ordering Dr: Lorne Taylor NP BOAT PULLER-C PROCEDURE: THORACENTESIS W US 11/27/2024 REASON FOR EXAM: PLEURAL EFFUSION RETURN TECHNIQUE: THORACENTESIS W US COMPARISON: None FINDINGS: Following informed consent, and using standard sterile technique, an ultrasound-guided right thoracentesis was performed 2% lidocaine local anesthesia was followed by placement of a 5 Turkmen catheter intothe right pleural fluid collection. 895 mL of sandy colored fluid was successfully removed. A portion of this was sent to thelaboratory for evaluation. No complication was encountered combined the patient left the department in goodcondition, without significant complaint. US/Thoracentesis W US IMPRESSION: Successful right ultrasound-guided thoracentesis. Laboratory results pending. Reading Location: [facility] CC: YASMIN Taylor; Dr. Thiago Morgan MD ~ It Architecture Consultant: Signed [facility] 11-24-2024 Radiology Diagnostic study note [facility] Imaging Services [address] [place], [place] [address] Chest Insp/Exp 2 View MR#: [id number] Acct: [id number] Name: DREWEDUARD Rep #: [id number] : 1945 M 79 From: Jose Weems MD PCP: Dr. Thiago Morgan MD Status: REG CLI Study:Chest Insp/Exp 2 View Date of Exam: 11/24/24 Exam# [id number] Ordering Dr: Agustin Box i, MD PROCEDURE: CHEST INSP/EXP 2 VIEW 11/24/2024 REASON FOR EXAM: POST THORACENTESIS TECHNIQUE: CHEST INSP/EXP 2 VIEW COMPARISON: Prior study dated November 16, 2024. FINDINGS: The patient is status post left thoracentesis. No evidence of pneumothorax. Mild residual bilateral pleural-parenchymal changes. RAD/Chest Insp/Exp 2 View IMPRESSION: Status post left thoracentesis. No evidence of pneumothorax. Reading Location: [place] [address] CC: Dr. Thiago Morgan MD; Dr. Agustin Weems MD ~ It Architecture Consultant: Signed [facility] 11-16-2024 Evaluation note Diagnosis Onset Date Resolution Pleural effusion, right acute J une 2024 1:15pm Bilateral pleural effusion chronic November 16, 2024 1:15pm Bilateral pleural effusion chronic November 24, 2024 10:05am Acute hypoxic respiratory failure acute December 05, 2024 10:27am Bilateral pleural effusion chronic December 05, 2024 10:27am COPD (chronic obstructive pulmonary disease) chronic December 05 10:27am Immunization due noneactive December 10:19am Chronic respiratory failure noneactive December 21, 2024 10:19am Hyperthyroidism noneactive December 10:19am COPD (chronic obstructive pulmonary disease) noneactive December 21 10:19am Recurrent pleural effusion noneactive December 21, 2024 10:19am Quit smoking noneactive December 21, 025 10:19am [facility] Work Phone: 1(566) 239-648906-12-2025 Radiology Diagnostic study note [facility] Imaging Services [address] [place] [address] Chest Insp/Exp 2 View MR#: [id number] Acct: [id number] Name: EDUARD RUSSELL Rep #: [id number] : 1945 M 79 From: Jose Weems MD PCP: Dr. Thiago Morgan MD Status: REG CLI Study:Chest Insp/Exp 2 View Date of Exam: 11/16/24 Exam# [id number] Ordering Dr: Agustin Box i, MD EXAM: Inspiration expiration views following a right thoracentesis. CLINICAL HISTORY: Right pleural effusion. COMPARISON: Prior study dated November 07, 2024 TECHNIQUE: Inspiration expiration views were obtained. FINDINGS: Small bilateral pleural-parenchymal changes. No evidence of pneumothorax following the right thoracentesis. RAD/Chest Insp/Exp 2 View IMPRESSION: No evidence of pneumothorax following the right thoracentesis. Reading Location: [place] [address] CC: Dr. Thiago Morgan MD; Dr. Agustin Weems MD ~ It Architecture Consultant: Signed [facility]06-03-2025 Radiology Diagnostic study note [facility] Imaging Services [address] [place], [place] [id number] Thoracentesis W US MR#: [id number] Acct: [id number] Name: EDUARD RUSSELL Rep #: [id number] : 1945 M 79 From: Kristen Elder MD PCP: Dr. Thiago Morgan MD Status: REG CLI Study:Thoracentesis W US Date of Exam: 0 11/07/24 Exam# [id number] Ordering Dr: Gore DO PROCEDURE: ULTRASOUND-GUIDED DIAGNOSTIC AND THERAPEUTIC LEFT THORACENTESIS 11/07/2024 REASON FOR EXAM: ENLARGING LEFT PLEURAL EFFUSION TECHNIQUE: Real-time ultrasound imaging of LEFT lung. COMPARISON: Chest radiograph dated 11/02/2024. FINDINGS: Informed consent was obtained. The patient was prepped and draped in the usual sterile fashion. Anesthetic: Lidocaine 2% was utilized for local anesthesia. Catheter: 5 Fr, 10 cm in length [id number] Centesis Catheter. Drained fluid: 2010 mL. Fluid color: Dark yellow. Fluid clarity: Clear. Fluid disposition: 100 mL sent to the laboratory for testing. US/Thoracentesis W US IMPRESSION: Successful left thoracentesis under ultrasound guidance. Specimen was sent to the laboratory for appropriate testing. Patient tolerated the procedure well. Thank you for this referral. Reading Location: [place] [address] CC: Dr. Thiago Morgan MD; Dr. Alejandro Pritchard DO ~ It Architecture Consultant: Signed [facility]06-03-2025 Radiology Diagnostic study note [facility] Imaging Services [address] [place] [address] Chest Insp/Exp 2 View MR#: [id number] Acct: [id number] Name: EDUARD RUSSELL Rep #: [id number] : 1945 M 79 From: Kristen Elder MD PCP: Dr. Thiago Morgan MD Status: REG CLI Study:Chest Insp/Exp 2 View Date of Exam: 11/07/24 Exam# [id number] Ordering Dr: Jason Elder MD EXAM: CHEST INSPIRATION/EXPIRATION 2-VIEW CLINICAL HISTORY: POST THORACENTESIS EVALUATION, LEFT LUNG. COMPARISON: PA AND LATERAL CHEST DATED 11/02/2024. TECHNIQUE: AP UPRIGHT PORTABLE CHEST, INSPIRATION AND EXPIRATION. FINDINGS: No pneumothorax is demonstrated following left sided thoracentesis. Significant decrease in the left pleural effusion. Stable right pleural effusion. Heart, mediastinum, and great vessels are stable. Multilevel spondylosis. RAD/Chest Insp/Exp 2 View IMPRESSION: NO EVIDENCE OF PNEUMOTHORAX FOLLOWING LEFT SIDED THORACENTESIS. Reading Location: [place] [address] CC: Dr. Thiago Morgan MD; Dr. Jason Elder MD ~ It Architecture Consultant: Signed [facility]05-29-2025 Radiology Diagnostic study note [facility] Imaging Services [address] [place] [address] Chest PA and Lateral MR#: [id number] Acct: [id number] Name: EDUARD RUSSELL Rep #: [id number] : 1945 M 79 From: Jose Weems MD PCP: Dr. Thiago Morgan MD Status: REG CLI Study:Chest PA and Lateral Date of Exam: 11/02/24 Exam# [id number] Ordering Dr: Gore DO PROCEDURE: CHEST PA AND LATERAL 11/02/2024 REASON FOR EXAM: PLUERAL EFFUSION FOLLOW UP TECHNIQUE: Frontal and lateral views of the chest. COMPARISON: Prior study dated October 25, 2023. FINDINGS: Hardware: None Heart: Heart is nonenlarged. Mediastinum: Atherosclerotic calcification of the aortic arch. Lungs: Increasing bilateral pleural effusions left greater than right with bibasilar compressive atelectasis worse at the left lung base. Bones: Degenerative changes are identified within the thoracic spine. RAD/Chest PA and Lateral IMPRESSION: Progression of bilateral pleural effusions worse on the left side with bibasilarinfiltration and/oratelectasis. Reading Location: [id number] CC: Dr. Thiago Morgan MD; Dr. Alejandro Pritchard DO ~ It Architecture Consultant: Signed [facility]05-20-2025 Discharge summary [facility] Medical Records Department [address] [place] [address] Instructions for Home/Discharge Instructions 10/24/24 1101 MR#: [id number] Acct: [id number] Name: EDUARD RUSSELL Rep #:[id number] : 1945 79 From: Davis Dougherty DO PCP: Dr. Thiago Morgan MD Status:ADM IN Discharge Instructions Diet Discharge Diet: No restrictions DC O2, CPAP, BIPAP needs Home O2 Discharge instructions: Yes Type of respiratory needs?: Oxygen Oxygen frequency: ContinuousContinuous oxygen liters per minute: 2 L Dressing / Incision Discharge Activity: Return to Normal Activity Weight Bearing Status: Full weight bearing Follow Up Care Test Results: Test results from this visit will be discussed in further detail at your follow- up appointment, if applicable. Discharge Plan Admission Admit Date/Time: 10/23/24 14:14 Primary Reason for Your Visit: pleural effusions Attending Provider: Davis Dougherty Primary Care Provider: Thiago Morgan Discharge Orders/Prescriptions Prescriptions: Continued methimazole 5 mg tablet 5 mg PO QDAY Qty: 90 1RF fluticasone furoate-vilanterol [Breo Ellipta] 100-25 mcg/dose blister with device 1 inh inhalation DAILY guaifenesin [Mucus Relief ER] 600 mg tablet extended release 12hr 600 mg PO BID albuterol sulfate 90 mcg/actuation aerosol powdr breath activated 2 inh inhalation Q4H PRN (Reason: shortness of breath) Vitamin B-12 50 mcg lozenge 50 mcg PO DAILY ferrous sulfate [Iron (ferrous sulfate)] 325 mg (65 mg iron) tablet 325 mg PO DAILY Discontinued furosemide 40 mg tablet 40 mg PO DAILY 30 Days Qty: 30 0RF Referrals / Follow Up: Thiago Morgan MD [Primary Care Provider] - Alejandro Pritchard DO [Med Staff - Active Staff] - See Referral Note (October at 1045 am, get to the office at 1030 am) Disposition Disposition (needs filled in before D/C Order can be placed): Home, Self Care 10/24/24 1701Mark Farhat BYNUM CC: Dr. Thiago Morgan MD ~ Signed [facility]05-20-2025 [facility]05-20-2025 Radiology Diagnostic study note [facility] Imaging Services [address] [place] [address] Thoracentesis W US MR#: [id number] Acct: [id number] Name: EDUARD RUSSELL Rep #: [id number] : 1945 M 79 From: Jose Weems MD PCP: Dr. Thiago Morgan MD Status: ADM IN Study:Thoracentesis W US Date of Exam: 0 10/24/24 Exam# [id number] Ordering Dr: Davis Pearson DO PROCEDURE: THORACENTESIS W US 10/24/2024 REASON FOR EXAM: RIGHT PLEURAL EFFUSION TECHNIQUE: The procedure as well as the benefits and possible complications including infection, bleeding and pneumothorax were explained to the patient. Informed consent was obtained. The overlying skin was prepped and draped in the usual sterile fashion. Following local anesthetic application, a 5 Turkmen drainage catheter was placed into the right pleural space. 570 mL of sandy colored fluid was aspirated. The patient tolerated the procedure well. COMPARISON: None FINDINGS: 570 mL of clear sandy colored fluid was aspirated from the right pleural cavity. The patient tolerated the procedure well. US/Thoracentesis W US IMPRESSION: Successful right thoracentesis. Reading Location: [facility] CC: Dr. Thiago Morgan MD; Dr. Davis Dougherty DO ~ It Architecture Consultant: Signed [facility]05-20-2025 Radiology Diagnostic study note [facility] Imaging Services [address] [place] [address] Chest Insp/Exp 2 View MR#: [id number] Acct: [id number] Name: EDUARD RUSSELL Rep #: [id number] : 1945 79 From: Jose Weems MD PCP: Dr. Thiago Morgan MD Status: ADM IN Study:Chest Insp/Exp 2 View Date of Exam: 10/24/24 Exam# [id number] Ordering Dr: Agustin Box i, MD EXAM: Chest PA inspiration expiration following right thoracentesis. CLINICAL HISTORY: Right pleural effusion. COMPARISON: Prior study dated October 23, 2024. TECHNIQUE: AP inspiration expiration views were obtained. FINDINGS: Status post right thoracentesis. No evidence of pneumothorax. Mild residual pleural-parenchymal changes seen at the right base. RAD/Chest Insp/Exp 2 View IMPRESSION: Status post right thoracentesis. No evidence of pneumothorax. Mild residual pleural-parenchymal changes at the right lung base. Reading Location: [facility] CC: Dr. Thiago Morgan MD; Dr. Agustin Weems MD ~ It Architecture Consultant: Signed [facility]05-20-2025 Discharge summary Author Davis Dougherty [facility] Note Date/Time October 24, 2024 5:01p m [facility] Medical Records Department [address] [place] [address] Instructions for Home/Discharge Instructions 10/24/24 1101 MR#: [id number] Acct: [id number] Name: EDUARD RUSSELL Rep #:[id number] : 1945 79 From: Davis Dougherty DO PCP: Dr. Thiago Morgan MD Status:ADM IN Discharge Instructions Diet Discharge Diet: No restrictions DC O2, CPAP, BIPAP needs Home O2 Discharge instructions: Yes Type of respiratory needs?: Oxygen Oxygen frequency: Continuous Continuous oxygen liters per minute: 2 L Dressing / Incision Discharge Activity: Return to Normal Activity Weight Bearing Status: Full weight bearing Follow Up Care Test Results: Test results from this visit will be discussed in further detail at your follow- up appointment, if applicable. Discharge Plan Admission Admit Date/Time: 10/23/24 14:14 Primary Reason for Your Visit: pleural effusions Attending Provider: Davis Dougherty Primary Care Provider: Thiago Morgan Discharge Orders/Prescriptions Prescriptions: Continued methimazole 5 mg tablet 5 mg PO QDAY Qty: 90 1RF fluticasone furoate-vilanterol [Breo Ellipta] 100-25 mcg/dose blister with device 1 inh inhalation DAILY guaifenesin [Mucus Relief ER] 600 mg tablet extended release 12hr 600 mg PO BID albuterol sulfate 90 mcg/actuation aerosol powdr breath activated 2 inh inhalation Q4H PRN (Reason: shortness of breath) Vitamin B-12 50 mcg lozenge 50 mcg PO DAILY ferrous sulfate [Iron (ferrous sulfate)] 325 mg (65 mg iron) tablet 325 mg PO DAILY Discontinued furosemide 40 mg tablet 40 mg PO DAILY 30 Days Qty: 30 0RF Referrals / Follow Up: Thiago Morgan MD [Primary Care Provider] - Alejandro Pritchard DO [Med Staff - Active Staff] - See Referral Note (October at 1045 am, get to the office at 1030 am) Disposition Disposition (needs filled in before D/C Order can be placed): Home, Self Care 10/24/24 1701<Electronically signed by Davis Dougherty DO>Davis Dougherty DO CC: Dr. Thiago Morgan MD ~ Signed [facility] Work Phone: 1(923) 956-942605-19-2025 History and physical note Author Davis [facility] Note Date/Time October 23, 2024 7:58p m [facility] Medical Records Department [address] [place] [address] H&P Exam - Hospitalist 10/23/241933 MR#: [id number] Acct: [id number] Name: EDUARD RUSSELL Rep #:[id number] : 1945 79 From: Davis Dougherty DO PCP: Dr. Thiago Morgan MD Status:ADM IN Location: TX3 [id number] HPI - General General Date of Admission: 10/23/24 Date of Service: 10/23/24 Chief Complaint: Shortness of breath HPI Narrative EDUARD RUSSELL, is a 79 M who presents to the emergency room at [facility] with chief complaint of shortness of breath, patient is on home oxygen at 3 L at all times, he states he was placed on this several weeks ago the first part of September 2024.. Exact diagnosis for the oxygen is not known by the patient. Patient states that his O2 sat was dropping into the 80s at home on his 3 L of oxygen. Workup in the emergency room included a CBC which showed a normal white blood cell count and hemoglobin, chemistry profile was unremarkable, chest CTA showed a large left pleural effusion with volume loss in the left hemithorax due to compressive atelectasis, there is a small to moderate right pleural effusion with basilar atelectasis noted. There was retrocrural lymphadenopathy noted. Patient's beta natruretic peptide was normal. I talked to the emergency room physician requested that the patient go down for a left thoracentesis, 1850 cc of clear fluid was removed without incident. Patient will be admitted to [facility] 3, he will need to undergo a right thoracentesis, studies were ordered on the fluid. [facility] Medical History Essential tremor Cataract COPD (chronic obstructive pulmonary disease) Thyroid disease Asthma Home Medications ?Medication ?Instructions ?Recorded ?Last Taken ?Type methimazole 5 mg tablet 5 mg PO QDAY thyroid #90 tab s 04/26/24 10/23/24 Rx furosemide 40 mg tablet 40 mg PO DAILY 30 days #30 t abs 10/17/24 10/23/24 Rx albuterol sulfate 90 mcg/actuation 2 inh inhalation Q4 H PRN shortness 10/23/24 Unknown History breath activated powder inhaler of breath cyanocobalamin (vitamin B-12) 50 50 mcg PO DAILY 10/23 Unknown History mcg lozenges (Vitamin B-12) ferrous sulfate 325 mg (65 mg 325 mg PO DAILY 10/23/24 Unknown History iron) tablet (Iron (ferrous sulfate)) fluticasone furoate 100 1 inh inhalation DAILY 10/2310/22/24 History mcg-vilanterol 25 mcg/dose inhalation powder (Breo Ellipta) guaifenesin 600 mg tablet, 600 mg PO BID 10/23/2410/05 History extended release 12 hr (Mucus Relief ER) Allergy/AdvReac Type Severity Reaction Status Date / Time shellfish derived AdvReac Mild Nausea/Vom/ Verified 10/23/24 10:29 Diarrhea Family History Mother Colon cancer Sister Colon cancer Surgical History H/O cataract extraction H/O shoulder surgery H/O sinus surgery Social History adopted: No household members: spouse number of children: 2 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: Yes (1) pets and animals: dog(s) Smoking Status: Former smoker Tobacco: How many years used: 40 quit status: considering quitting alcohol intake: never substance use type: does not use caffeine: Yes (1) Type: coffee frequency: does not exercise seatbelt use: always do you feel safe at home: Yes ROS Constitutional Constitutional: Reports fatigue; Denies anorexia, change in weight, chills, fever(s), night sweats or weakness Eyes Eyes: Denies blurry vision, change in vision, discharge from eye(s) or eye pain ENT HEENT: Denies dysphagia Cardiovascular Cardiovascular: Reports dyspnea on exertion; Denies chest pain, claudication, edema or palpitations Respiratory/Chest Respiratory/Chest: Reports cough, dyspnea, shortness of breath at rest and shortness of breath with exertion; Denies hemoptysis Gastrointestinal Gastrointestinal: Denies abdominal pain, constipation, diarrhea, hematemesis, hematochezia, melena, nausea or vomiting Genitourinary Genitourinary: Denies dysuria, hematuria, urinary frequency, urinary hesitancy, urinary incontinence or urinary urgency Musculoskeletal Musculoskeletal: Denies back pain, joint pain, joint stiffness, joint swelling, myalgias or neck pain Neurologic Neurologic: Denies abnormal gait, abnormal speech, dizziness, focal weakness, headache(s), loss of vision, numbness, other visual disturbances, paresthesias, syncope or tingling Psychiatric Psychiatric: Denies anxiety, cognitive impairment, depression, irritability, mood swings or suicidal ideation Endocrine Endocrinology: Denies change in body appearance, cold intolerance, excessive sweating, heat intolerance, polydipsia or polyuria Hematologic/Lymphatic Hematologic/Lymphatic: Denies none, anemia, easy bleeding, easy bruising or lymphadenopathy Allergic/Immunologic Allergic/Immunologic: Denies rhinitis, urticaria, eczemia or asthma Vital Signs Vital Signs Vital Signs: 10/23/24 10:27 10/23/24 10:29 10/23/24 10:35 Temperature 98 F 98.0 F Temperature Source Oral Oral Pulse Rate 103 H 93 Respiratory Rate 18 24 H Respiratory Effort Short of Breath Respiratory Depth Normal Respiratory Pattern Tachypnea Blood Pressure 109/79 145/85 H Blood Pressure Mean 89 105 Blood Pressure Source Blood Pressure Position Blood Pressure Location Pulse Ox 92 95 Oxygen Delivery Method Room Air Nasal Cannula Nasal Cannula Oxygen Flow Rate (L/min) 2 4 10/23/24 10:48 10/23/24 10:59 10/23/24 11:00 Temperature Temperature Source Pulse Rate 89 Respiratory Rate 28 H Respiratory Effort Respiratory Depth Respiratory Pattern Tachypnea Blood Pressure Blood Pressure Mean Blood Pressure Source Blood Pressure Position Blood Pressure Location Pulse Ox 96 96 Oxygen Delivery Method Nasal Cannula Nasal Cannula Oxygen Flow Rate (L/min) 2 2 10/23/24 11:26 10/23/24 11:29 10/23/24 12:00 Temperature 98.1 F 97.8 F Temperature Source Oral Oral Pulse Rate 89 90 97 Respiratory Rate 24 H 24 H 28 H Respiratory Effort Respiratory Depth Respiratory Pattern Blood Pressure 115/72 115/72 151/78 H Blood Pressure Mean 86 86 102 Blood Pressure Source Blood Pressure Position Blood Pressure Location Pulse Ox 96 94 94 Oxygen Delivery Method Nasal Cannula Nasal Cannula Nasal Cannula Oxygen Flow Rate (L/min) 2 2 2 10/23/24 12:00 10/23/24 13:00 10/23/24 13:38 Temperature 97.8 F 98.1 F Temperature Source Oral Oral Pulse Rate 97 96 98 Respiratory Rate 28 H 28 H 18 Respiratory Effort Short of Breath Respiratory Depth Respiratory Pattern Blood Pressure 151/78 H 143/91 H 136/74 H Blood Pressure Mean 102 108 Blood Pressure Source Blood Pressure Position Blood Pressure Location Pulse Ox 94 92 Oxygen Delivery Method Nasal Cannula Nasal Cannula Oxygen Flow Rate (L/min) 2 2 10/23/24 13:45 10/23/24 13:51 10/23/24 14:47 Temperature 98.6 F Temperature Source Oral Pulse Rate 95 95 89 Respiratory Rate 18 18 24 H Respiratory Effort Respiratory Depth Respiratory Pattern Blood Pressure 135/68 H 126/71 H 116/72 Blood Pressure Mean 86 Blood Pressure Source Blood Pressure Position Blood Pressure Location Pulse Ox 96 Oxygen Delivery Method Nasal Cannula Nasal Cannula Nasal Cannula Oxygen Flow Rate (L/min) 2 2 2 10/23/24 15:35 10/23/24 15:47 Temperature 97.8 F Temperature Source Oral Pulse Rate 89 Respiratory Rate 20 H Respiratory Effort Normal Respiratory Depth Respiratory Pattern Blood Pressure 114/91 H Blood Pressure Mean 98 Blood Pressure Source Monitor Blood Pressure Position Sitting Blood Pressure Location Left Arm Pulse Ox 93 Oxygen Delivery Method Nasal Cannula Nasal Cannula Oxygen Flow Rate (L/min) 3 3 Weight Weight: 97.976 kg Body Mass Index (BMI) 28.5 Physical Exam Const alert, oriented x3, no apparent distress, average body habitus and healthy appearing General Appearance: cooperative, well kempt and well developed Orientation / Consciousness: awake, oriented to person, oriented to place and oriented to time HEENT normocephalic, head/scalp atraumatic, hearing grossly normal bilaterally and moist oral mucous membranes Eyes PERRL, EOMs intact bilaterally and conjunctivae normal Neck supple, no JVD, thyroid normal and no carotid bruits General: trachea midline Resp normal respiratory effort, no retractions and no use of accessory muscles Resp Narrative: There are diminished breath sounds noted bilaterally Auscultation: Negative for rales, rhonchi or wheezes Cardio regular rate, regular rhythm, S1 normal heart sound, S2 normal heart sound, no murmurs, no rub and no gallops GI normal to inspection, nondistended, normoactive bowel sounds, soft to palpation,non-tender and non-distended Extremity no clubbing, cyanosis or edema Skin no rashes or lesions noted General Skin Exam: no breakdown Neuro oriented x3, CN's II-XII intact bilaterally, no focal motor deficits and no sensory deficits noted Sensorium / Orientation: awake and alert Speech: speech normal Psych affect normal Results Lab / Micro Data 10/23/24 10:41 10/23/24 10:41 Labs: Laboratory Results - last 24 hr 10/23/24 10:41: WBC 10.6, RBC 4.71, Hgb 13.4, Hct 42.9, MCV 91.1, MCH 28.5, MCHC31.2 L, RDW Std Deviation 45.9 H, RDW Coeff of Carole 13.6, Plt Count 265, MPV 9.7,Immature Gran % (Auto) 0.400, Neut % (Auto) 72.4 H, Lymph % (Auto) 10.7 L, Cache % (Auto) 9.9, Eos % (Auto) 6.0 H, Baso % (Auto) 0.6, Absolute Neuts (auto) 7.7, Absolute Lymphs (auto) 1.13, Nucleated RBC % 0, PT 13.5, INR 1.0, APTT 31.0, Sodium 136, Potassium 4.0, Chloride 93 L, Carbon Dioxide 33.9 H, Anion Gap 9, BUN 11, Creatinine 0.61 L, Estim Creat Clear Calc 97.14, Est GFR (MDRD) Non-Af 99, BUN/Creatinine Ratio 17.4, Glucose 123 H, Calcium 9.5, Total Bilirubin 0.53,AST 16, ALT 8, Alkaline Phosphatase 81, Lactate Dehydrogenase 219, Troponin T High Sens 9 D, NT pro BNP II 86, Total Protein 7.9 10/23/24 10:41: Total Protein Cancelled, Albumin 3.8, Globulin 4.0 10/23/24 10:41: Globulin Cancelled, Albumin/Globulin Ratio 0.9 10/23/24 10:41: Albumin/Globulin Ratio Cancelled 10/23/24 11:12: Lactic Acid < 1.0 10/23/24 12:00: Urine Color Yellow, Urine Clarity Clear, Urine pH 7.0, Ur Specific [place] 1.005, Urine Protein 15 H, Urine Glucose (UA) Normal, Urine Ketones Negative, Urine Occult Blood Negative, Urine Nitrite Negative, Urine Bilirubin Negative, Urine Urobilinogen Normal, Ur Leukocyte Esterase 100 H, Urine RBC 0 SEEN, Urine WBC 5- 10 SEEN, Ur Squamous Epith Cells 0 SEEN, Urine Bacteria 0 SEEN, Urine Mucus 0 SEEN 10/23/24 15:15: Troponin T Hi Sens 2 Hr 7 10/23/24 : Fluid Source THORACENTESIS, Fluid Color YELLOW, Fluid Appearance TURBID, Fluid WBC 3.275, Fluid RBC 0.004, Fluid Tot Cell Count 3.305, Fld Polynuclear WBCs # 2.411, Fld Polynuclear WBCs % 73.7, Fluid Mononuclear WBCs 0.864, Fld Mononuclear WBCs % 26.3, Fluid Neutrophils 62, Fluid Lymphocytes 15, Fluid Monocytes 13, Fluid Macrophages 8, Fluid Other Cells 2, Fl Pathologist Comment May follow, Fluid Glucose 107, Fluid Total Protein 5.2, Fluid LDH 308, Fluid Comment 2 SEE COMMENT Micro: Microbiology 10/23/24 Unknown Fluid - Pleural (Lung) Gram Stain - Final 10/23/24 11:45 Mucosa - Nose SARS-CoV-2, Influenza & RSV (PCR) - Final Imaging Radiology Impression Chest CTA 10/23/24 11:25 IMPRESSION: Large left pleural effusion with volume loss in the left hemithorax due to compressive atelectasis. Small to moderate right pleural effusion with basilar atelectasis. Line hyperplasia of the adrenal glands. Right retrocrural lymphadenopathy. Reading Location: [facility]1 Thoracentesis Ultrasound 10/23/24 12:43 IMPRESSION: Successful left thoracentesis. No evidence of pneumothorax. The patient tolerated the procedure well. Reading Location: [facility] Chest X-Ray 10/23/24 13:45 IMPRESSION: Status post left thoracentesis. No evidence of pneumothorax. Reading Location: [facility] Assessment & Plan Assessment/Plan (1) Hypoxia: PLAN: Plan 1. Hypoxia on a backdrop of bilateral pleural effusions with worsening dyspnea-patient will be admitted to [facility], again a left thoracentesis was performed with resulting 1850 cc of clear fluid removed, patient will need a right thoracentesis performed also. The etiology of the pleural fluid appears to be related to congestive heart failure, patient was discharged from the hospital onApril 2 of this year with a diagnosis of pleural effusions from congestive heartfailure. #2 chronic obstructive pulmonary disease-patient will receive her aerosol treatments, pulse ox will be monitored #3 hyperthyroidism-patient is on Tapazole Total clinical time spent by myself addressing the patient's medical issues, reviewing all of his data, and collaborating with patient's care team: 75 minutes Charges/Coding Visit Charges Inpatient E&M: 84368 Init Hosp L3 10/23/241957 <Electronically signed by Davis Dougherty DO> Cosigner Signature (if applicable): CC: Dr. Thiago Morgan MD; Dr. Davis Dougherty DO~ Signed [facility] Work Phone: 1(295) 676-566705-19-2025 History and physical note [facility] Medical Records Department [address] [place] [address] H&P Exam - Hospitalist 10/23/241933 MR#: [id number] Acct: [id number] Name: EDUARD RUSSELL Rep #:[id number] : 1945 79 From: Davis Dougherty DO PCP: Dr. Thiago Morgan MD Status:ADM IN Location: [facility] RT389-3 HPI - General General Date of Admission: 10/23/24 Date of Service: 10/23/24 Chief Complaint: Shortness of breath HPI Narrative EDUARD RUSSELL, is a 79 M who presents to the emergency room at [facility] withchief complaint of shortness of breath, patient is on home oxygen at 3 L at all times, he states hewas placed on this several weeks ago the first part of September 2024.. Exact diagnosis for the oxygen is not known by the patient. Patient states that his O2 sat was dropping into the 80s at home on his3 L of oxygen. Workup in the emergency room included a CBC which showed a normal white blood cell count and hemoglobin, chemistry profile was unremarkable, chest CTA showed a large left pleural effusion with volumeloss in the left hemithorax due to compressive atelectasis, there is a small to moderate right pleural effusion with basilar atelectasis noted. There was retrocrural lymphadenopathy noted. Patient's beta natruretic peptide was normal. I talked to the emergency room physician requested that the patient go down for a left thoracentesis, 1850 cc of clear fluid was removed without incident. Patient will be admitted to [facility] 3, he will need to undergo a right thoracentesis, studies were ordered on the fluid. [facility] Medical History Essential tremor Cataract COPD (chronic obstructive pulmonary disease) Thyroid disease Asthma Home Medications ?Medication ?Instructions ?Recorded ?Last Taken ?Type methimazole 5 mg tablet 5 mg PO QDAY thyroid #90 tab s 04/26/24 10/23/24 Rx furosemide 40 mg tablet 40 mg PO DAILY 30 days #30 t abs 10/17/24 10/23/24 Rx albuterol sulfate 90 mcg/actuation 2 inh inhalation Q4 H PRN shortness 10/23/24 Unknown History breath activated powder inhaler of breath cyanocobalamin (vitamin B-12) 50 50 mcg PO DAILY 10/23 Unknown History mcg lozenges (Vitamin B-12) ferrous sulfate 325 mg (65 mg 325 mg PO DAILY 10/23/24 Unknown History iron) tablet (Iron (ferrous sulfate)) fluticasone furoate 100 1 inh inhalation DAILY 10/2310/22/24 History mcg-vilanterol 25 mcg/dose inhalation powder (Breo Ellipta) guaifenesin 600 mg tablet, 600 mg PO BID 10/23/2410/05 History extended release 12 hr (Mucus Relief ER) Allergy/AdvReac Type Severity Reaction Status Date / Time shellfish derived AdvReac Mild Nausea/Vom/ Verified 10/23/24 10:29 Diarrhea Family History Mother Colon cancer Sister Colon cancer Surgical History H/O cataract extraction H/O shoulder surgery H/O sinus surgery Social History adopted: No household members: spouse number of children: 2 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[employer] pets and animals: Yes (1) pets and animals: dog(s) Smoking Status: Former smoker Tobacco: How many years used: 40 quit status: considering quitting alcohol intake: never substance use type: does not use caffeine: Yes (1) Type: coffee frequency: does not exercise seatbelt use: always do you feel safe at home: Yes ROS Constitutional Constitutional: Reports fatigue; Denies anorexia, change in weight, chills, fever(s), night sweats or weakness Eyes Eyes: Denies blurry vision, change in vision, discharge from eye(s) or eye pain ENT HEENT: Denies dysphagia Cardiovascular Cardiovascular: Reports dyspnea on exertion; Denies chest pain, claudication, edema or palpitations Respiratory/Chest Respiratory/Chest: Reports cough, dyspnea, shortness of breath at rest and shortness of breath withexertion; Denies hemoptysis Gastrointestinal Gastrointestinal: Denies abdominal pain, constipation, diarrhea, hematemesis, hematochezia, melena,nausea or vomiting Genitourinary Genitourinary: Denies dysuria, hematuria, urinary frequency, urinary hesitancy, urinary incontinence or urinary urgency Musculoskeletal Musculoskeletal: Denies back pain, joint pain, joint stiffness, joint swelling, myalgias or neck pain Neurologic Neurologic: Denies abnormal gait, abnormal speech, dizziness, focal weakness, headache(s), loss of vision, numbness, other visual disturbances, paresthesias, syncope or tingling Psychiatric Psychiatric: Denies anxiety, cognitive impairment, depression, irritability, mood swings or suicidal ideation Endocrine Endocrinology: Denies change in body appearance, cold intolerance, excessive sweating, heat intolerance, polydipsia or polyuria Hematologic/Lymphatic Hematologic/Lymphatic: Denies none, anemia, easy bleeding, easy bruising or lymphadenopathy Allergic/Immunologic Allergic/Immunologic: Denies rhinitis, urticaria, eczemia or asthma Vital Signs Vital Signs Vital Signs: 10/23/24 10:27 10/23/24 10:29 10/23/24 10:35 Temperature 98 F 98.0 F Temperature Source Oral Oral Pulse Rate 103 H 93 Respiratory Rate 18 24 H Respiratory Effort Short of Breath Respiratory Depth Normal Respiratory Pattern Tachypnea Blood Pressure 109/79 145/85 H Blood Pressure Mean 89 105 Blood Pressure Source Blood Pressure Position Blood Pressure Location Pulse Ox 92 95 Oxygen Delivery Method Room Air Nasal Cannula Nasal Cannula Oxygen Flow Rate (L/min) 2 4 10/23/24 10:48 10/23/24 10:59 10/23/24 11:00 Temperature Temperature Source Pulse Rate 89 Respiratory Rate 28 H Respiratory Effort Respiratory Depth Respiratory Pattern Tachypnea Blood Pressure Blood Pressure Mean Blood Pressure Source Blood Pressure Position Blood Pressure Location Pulse Ox 96 96 Oxygen Delivery Method Nasal Cannula Nasal Cannula Oxygen Flow Rate (L/min) 2 2 10/23/24 11:26 10/23/24 11:29 10/23/24 12:00 Temperature 98.1 F 97.8 F Temperature Source Oral Oral Pulse Rate 89 90 97 Respiratory Rate 24 H 24 H 28 H Respiratory Effort Respiratory Depth Respiratory Pattern Blood Pressure 115/72 115/72 151/78 H Blood Pressure Mean 86 86 102 Blood Pressure Source Blood Pressure Position Blood Pressure Location Pulse Ox 96 94 94 Oxygen Delivery Method Nasal Cannula Nasal Cannula Nasal Cannula Oxygen Flow Rate (L/min) 2 2 2 10/23/24 12:00 10/23/24 13:00 10/23/24 13:38 Temperature 97.8 F 98.1 F Temperature Source Oral Oral Pulse Rate 97 96 98 Respiratory Rate 28 H 28 H 18 Respiratory Effort Short of Breath Respiratory Depth Respiratory Pattern Blood Pressure 151/78 H 143/91 H 136/74 H Blood Pressure Mean 102 108 Blood Pressure Source Blood Pressure Position Blood Pressure Location Pulse Ox 94 92 Oxygen Delivery Method Nasal Cannula Nasal Cannula Oxygen Flow Rate (L/min) 2 2 10/23/24 13:45 10/23/24 13:51 10/23/24 14:47 Temperature 98.6 F Temperature Source Oral Pulse Rate 95 95 89 Respiratory Rate 18 18 24 H Respiratory Effort Respiratory Depth Respiratory Pattern Blood Pressure 135/68 H 126/71 H 116/72 Blood Pressure Mean 86 Blood Pressure Source Blood Pressure Position Blood Pressure Location Pulse Ox 96 Oxygen Delivery Method Nasal Cannula Nasal Cannula Nasal Cannula Oxygen Flow Rate (L/min) 2 2 2 10/23/24 15:35 10/23/24 15:47 Temperature 97.8 F Temperature Source Oral Pulse Rate 89 Respiratory Rate 20 H Respiratory Effort Normal Respiratory Depth Respiratory Pattern Blood Pressure 114/91 H Blood Pressure Mean 98 Blood Pressure Source Monitor Blood Pressure Position Sitting Blood Pressure Location Left Arm Pulse Ox 93 Oxygen Delivery Method Nasal Cannula Nasal Cannula Oxygen Flow Rate (L/min) 3 3 Weight Weight: 97.976 kg Body Mass Index (BMI) 28.5 Physical Exam Const alert, oriented x3, no apparent distress, average body habitus and healthy appearing General Appearance: cooperative, well kempt and well developed Orientation / Consciousness: awake, oriented to person, oriented to place and oriented to time HEENT normocephalic, head/scalp atraumatic, hearing grossly normal bilaterally and moist oral mucous membranes Eyes PERRL, EOMs intact bilaterally and conjunctivae normal Neck supple, no JVD, thyroid normal and no carotid bruits General: trachea midline Resp normal respiratory effort, no retractions and no use of accessory muscles Resp Narrative: There are diminished breath sounds noted bilaterally Auscultation: Negative for rales, rhonchi or wheezes Cardio regular rate, regular rhythm, S1 normal heart sound, S2 normal heart sound, no murmurs, no rub and no gallops GI normal to inspection, nondistended, normoactive bowel sounds, soft to palpation,non-tender and non-distended Extremity no clubbing, cyanosis or edema Skin no rashes or lesions noted General Skin Exam: no breakdown Neuro oriented x3, CN's II-XII intact bilaterally, no focal motor deficits and no sensory deficits noted Sensorium / Orientation: awake and alert Speech: speech normal Psych affect normal Results Lab / Micro Data 10/23/24 10:41 10/23/24 10:41 Labs: Laboratory Results - last 24 hr 10/23/24 10:41: WBC 10.6, RBC 4.71, Hgb 13.4, Hct 42.9, MCV 91.1, MCH 28.5, MCHC31.2 L, RDW Std Deviation 45.9 H, RDW Coeff of Carole 13.6, Plt Count 265, MPV 9.7,Immature Gran % (Auto) 0.400, Neut % (Auto) 72.4 H, Lymph % (Auto) 10.7 L, Cache % (Auto) 9.9, Eos % (Auto) 6.0 H, Baso % (Auto) 0.6, Absolute Neuts (auto) 7.7, Absolute Lymphs (auto) 1.13, Nucleated RBC % 0, PT 13.5, INR 1.0, APTT 31.0, Sodium 136, Potassium 4.0, Chloride 93 L, Carbon Dioxide 33.9 H, Anion Gap 9, BUN 11, Creatinine 0.61 L, Estim Creat Clear Calc 97.14, Est GFR (MDRD) Non- Af 99, BUN/Creatinine Ratio 17.4, Glucose 123 H,Calcium 9.5, Total Bilirubin 0.53,AST 16, ALT 8, Alkaline Phosphatase 81, Lactate Dehydrogenase 219, Troponin T High Sens 9 D, NT pro BNP II 86, Total Protein 7.9 10/23/24 10:41: Total Protein Cancelled, Albumin 3.8, Globulin 4.0 10/23/24 10:41: Globulin Cancelled, Albumin/Globulin Ratio 0.9 10/23/24 10:41: Albumin/Globulin Ratio Cancelled 10/23/24 11:12: Lactic Acid < 1.0 10/23/24 12:00: Urine Color Yellow, Urine Clarity Clear, Urine pH 7.0, Ur Specific [place] 1.005, Urine Protein 15 H, Urine Glucose (UA) Normal, Urine Ketones Negative, Urine Occult Blood Negative, Urine Nitrite Negative, Urine Bilirubin Negative, Urine Urobilinogen Normal, Ur Leukocyte Esterase 100 H, Urine RBC 0 SEEN, Urine WBC 5-10 SEEN, Ur Squamous Epith Cells 0 SEEN, Urine Bacteria 0 SEEN, Urine Mucus 0 SEEN 10/23/24 15:15: Troponin T Hi Sens 2 Hr 7 10/23/24 : Fluid Source THORACENTESIS, Fluid Color YELLOW, Fluid Appearance TURBID, Fluid WBC 3.275, Fluid RBC 0.004, Fluid Tot Cell Count 3.305, Fld Polynuclear WBCs # 2.411, Fld Polynuclear WBCs % 73.7, Fluid Mononuclear WBCs 0.864, Fld Mononuclear WBCs % 26.3, Fluid Neutrophils 62, Fluid Lymphocytes 15, Fluid Monocytes 13, Fluid Macrophages 8, Fluid Other Cells 2, Fl Pathologist Comment May follow, Fluid Glucose 107, Fluid Total Protein 5.2, Fluid LDH 308, Fluid Comment 2 SEE COMMENT Micro: Microbiology 10/23/24 Unknown Fluid - Pleural (Lung) Gram Stain - Final 10/23/24 11:45 Mucosa - Nose SARS-CoV-2, Influenza & RSV (PCR) - Final Imaging Radiology Impression Chest CTA 10/23/24 11:25 IMPRESSION: Large left pleural effusion with volume loss in the left hemithorax due to compressive atelectasis. Small to moderate right pleural effusion with basilar atelectasis. Line hyperplasia of the adrenal glands. Right retrocrural lymphadenopathy. Reading Location: [facility] Thoracentesis Ultrasound 10/23/24 12:43 IMPRESSION: Successful left thoracentesis. No evidence of pneumothorax. The patient tolerated the procedure well. Reading Location: [facility] Chest X-Ray 10/23/24 13:45 IMPRESSION: Status post left thoracentesis. No evidence of pneumothorax. Reading Location: [facility] Assessment & Plan Assessment/Plan (1) Hypoxia: PLAN: Plan 1. Hypoxia on a backdrop of bilateral pleural effusions with worsening dyspnea- patient will be admitted to [facility], again a left thoracentesis was performed with resulting 1850 cc of clear fluid removed, patient will need a right thoracentesis performed also. The etiology of the pleural fluid appears to be related to congestive heart failure, patient was discharged from the hospital onApril 2 of this year with a diagnosis of pleural effusions from congestive heartfailure. #2 chronic obstructive pulmonary disease-patient will receive her aerosol treatments, pulse ox willbe monitored #3 hyperthyroidism-patient is on Tapazole Total clinical time spent by myself addressing the patient's medical issues, reviewing all of his data, and collaborating with patient's care team: 75 minutes Charges/Coding Visit Charges Inpatient E&M: 63874 Init Hosp L3 10/23/241957 Cosigner Signature (if applicable): CC: Dr. Thiago Morgan MD; Dr. Davis Dougherty DO~ Signed [facility]05-19-2025 Evaluation note* Diagnosis Onset Date Resolution Status Admit Date Hypoxia inactive October 23, 2024 2:14pm Bilateral pleural effusion chronic November 02, 2024 10:24am COPD (chronic obstructive pulmonary disease) chronic November 02 10:24am Pleural effusion, right acute J 2024 1:15pm Bilateral pleural effusion chronic November 16, 2024 1:15pm Bilateral pleural effusion chronic November 24, 2024 10:05am Acute hypoxic respiratory failure acute December 05, 2024 10:27am Bilateral pleural effusion chronic December 05, 2024 10:27am COPD (chronic obstructive pulmonary disease) chronic December 05 10:27am Immunization due noneactive December 10:19am Chronic respiratory failure noneacti ve December 21, 2024 10:19am Hyperthyroidism noneactive December 10:19am COPD (chronic obstructive pulmonary disease) noneactive December 21 10:19am Recurrent pleural effusion noneactiv e December 21, 2024 10:19am Quit smoking noneactive December 21 10:19am [facility] Work Phone: 1(576) 628-794305-19-2025 Radiology Diagnostic study note [facility] Imaging Services [address] [place] [address] Chest Insp/Exp 2 View MR#: [id number] Acct: [id number] Name: EDUARD RUSSELL Rep #: [id number] : 1945 M 79 From: Jose Weems MD PCP: Dr. Thiago Morgan MD Status: ADM IN Study:Chest Insp/Exp 2 View Date of Exam: 10/23/24 Exam# [id number] Ordering Dr: Agustin Box i, MD EXAM: Chest AP inspiration expiration views. CLINICAL HISTORY: Status post left thoracentesis. COMPARISON: Prior chest radiograph done earlier in the day. TECHNIQUE: AP inspiration expiration views were obtained. FINDINGS: Status post left thoracentesis. No evidence of pneumothorax. Residual bilateral pleural-parenchymalchanges worse on the left side. RAD/Chest Insp/Exp 2 View IMPRESSION: Status post left thoracentesis. No evidence of pneumothorax. Reading Location: [facility] CC: Dr. Thiago Morgan MD; Dr. Agustin Weems MD ~ It Architecture Consultant: Signed [facility]05-19-2025 Discharge summary Author Cristofer Miranda [facility] Note Date/Time October 23, 2024 12:50 pm [facility] Medical Records Department [address] [place] [address] Emergency Department Summary 10/23/24 MR#: [id number] Acct: [id number] Name: EDUARD RUSSELL Rep #:[id number] : 1945 79 From: Cristofer Miranda DO PCP: Dr. Thiago Morgan MD Status:REG ER Location: ED HPI History of Present Illness Chief Complaint: Shortness of Breath Narrative Narrative: Patient is a 79-year-old male with a past medical history of COPD, asthma, essential tremor who presents to the emerged part with chief complaint of cough and shortness of breath. According to at bedside ever since he was in the hospital at the end of August he has had slow progressive decline. She states that he quit smoking and after this things progressively worsen. She states that he used to do everything and now he can barely walk any amount of distance without becoming very short of breath and they noted that they do have oxygen athome and noted that he has been wearing this more than normal. They state that his oxygen levels at home have been in the 80s. States that they called the on-call physician/nurse line and they advised them to come to the emergency department to be evaluated. Patient states that he has not been on any steroidsrecently [facility] Medical History Essential tremor Cataract COPD (chronic obstructive pulmonary disease) Thyroid disease Asthma Home Medications ?Medication ?Instructions ?Recorded ?Last Taken ?Type methimazole 5 mg tablet 5 mg PO QDAY thyroid #90 tab s 04/26/24 10/23/24 Rx furosemide 40 mg tablet 40 mg PO DAILY 30 days #30 t abs 10/17/24 10/23/24 Rx albuterol sulfate 90 mcg/actuation 2 inh inhalation Q4 H PRN shortness 10/23/24 Unknown History breath activated powder inhaler of breath cyanocobalamin (vitamin B-12) 50 50 mcg PO DAILY 10/23 Unknown History mcg lozenges (Vitamin B-12) ferrous sulfate 325 mg (65 mg 325 mg PO DAILY 10/23/24 Unknown History iron) tablet (Iron (ferrous sulfate)) fluticasone furoate 100 1 inh inhalation DAILY 10/2310/22/24 History mcg-vilanterol 25 mcg/dose inhalation powder (Breo Ellipta) guaifenesin 600 mg tablet, 600 mg PO BID 10/23/2410/05 History extended release 12 hr (Mucus Relief ER) Allergy/AdvReac Type Severity Reaction Status Date / Time shellfish derived AdvReac Mild Nausea/Vom/ Verified 10/23/24 10:29 Diarrhea Family History Mother Colon cancer Sister Colon cancer Surgical History H/O cataract extraction H/O shoulder surgery H/O sinus surgery Social History adopted: No household members: spouse number of children: 2 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: Yes (1) pets and animals: dog(s) Smoking Status: Former smoker Tobacco: How many years used: 40 quit status: considering quitting alcohol intake: never substance use type: does not use caffeine: Yes (1) Type: coffee frequency: does not exercise seatbelt use: always do you feel safe at home: Yes ROS ROS ED ROS Narrative Constitutional: Denies fevers, chills, headaches Eyes: Denies changes double vision blurry vision Cardiovascular: Denies chest pain or palpitations Respiratory: Complains of cough and shortness of breath as noted above Abdomen: Denies abdominal pain nausea vomit diarrhea : Denies urinary symptoms Neurological: Denies numbness, aches, tingling Musculoskeletal: Denies back pain Skin: Denies rashes or lesions EXAM Physical Exam Narrative Exam Narrative: . General: Patient lying in bed rest comfortably did not appear to be acute distress Head: Atraumatic, normocephalic Eyes: PERRL bilaterally, EOMI bilateral, no conjunctival injection noted Neck: Soft, supple, trachea midline Cardiovascular: Patient tachycardic with a regular rhythm Respiratory: End expiratory wheezing noted bilaterally Abdomen: Soft, nondistended, nontender to palpation Extremities: +4/5 strength noted in the bilateral upper and lower extremities, radial pulse +2/4 in both extremities, no pedal edema on exam Neurological: Patient follow commands knew that he was at [facility] year is 2024 Skin: Warm, dry, tact no rashes or lesions noted Const Vital Signs: 10/23/24 10:27 10/23/24 10:29 10/23/24 10:35 Temperature 98 F 98.0 F Temperature Source Oral Oral Pulse Rate 103 H 93 Respiratory Rate 18 24 H Respiratory Effort Short of Breath Respiratory Depth Normal Respiratory Pattern Tachypnea Blood Pressure 109/79 145/85 H Blood Pressure Mean 89 105 Pulse Ox 92 95 Oxygen Delivery Method Room Air Nasal Cannula Nasal Cannula Oxygen Flow Rate (L/min) 2 4 10/23/24 10:48 10/23/24 10:59 10/23/24 11:00 Temperature Temperature Source Pulse Rate 89 Respiratory Rate 28 H Respiratory Effort Respiratory Depth Respiratory Pattern Tachypnea Blood Pressure Blood Pressure Mean Pulse Ox 96 96 Oxygen Delivery Method Nasal Cannula Nasal Cannula Oxygen Flow Rate (L/min) 2 2 10/23/24 11:26 10/23/24 11:29 10/23/24 12:00 Temperature 98.1 F 97.8 F Temperature Source Oral Oral Pulse Rate 89 90 97 Respiratory Rate 24 H 24 H 28 H Respiratory Effort Respiratory Depth Respiratory Pattern Blood Pressure 115/72 115/72 151/78 H Blood Pressure Mean 86 86 102 Pulse Ox 96 94 94 Oxygen Delivery Method Nasal Cannula Nasal Cannula Nasal Cannula Oxygen Flow Rate (L/min) 2 2 2 10/23/24 12:00 Temperature 97.8 F Temperature Source Oral Pulse Rate 97 Respiratory Rate 28 H Respiratory Effort Respiratory Depth Respiratory Pattern Blood Pressure 151/78 H Blood Pressure Mean 102 Pulse Ox 94 Oxygen Delivery Method Nasal Cannula Oxygen Flow Rate (L/min) 2 MDM MDM MDM Narrative Medical decision making narrative: Patient is a 79-year-old male who presented to the emergency department with chief complaint of cough and shortness of breath. On the differential diagnosisincludes but not limited to COPD exacerbation, pneumonia, pneumothorax, neoplasm. Once workup is obtained reviewed he will be reevaluated. Patient will be given a dose of prednisone as well as DuoNebs and 1 L of fluid as there is concern for a hypervolemic state therefore 30 cc/kg bolus of IV fluids will not be given. Previous records were reviewed and including a CT chest back in August that was read as infiltrate versus developing neoplasm therefore added on a CT of the chest today. Patient CBC was reviewed showed no evidence leukocytosis white blood count normal at 10.6, hemoglobin 13.4, platelet count was 265. Patient INR normal at 1, PT of 13.5. Patient sodium normal 136, potassium normal at 4, creatinine wasnormal at 0.61. Patient's AST and ALT were 16 and 8 respectively, troponin was noted to be normal at 9 proBNP normal at 86. Patient urinalysis reviewed showedno evidence of infection. Patient CTA of the chest reviewed showed a large leftpleural effusion with volume loss in the left hemithorax due to compressive atelectasis small to moderate right pleural effusion with basilar atelectasis line hyperplasia of the adrenal glands right retrocrural lymphadenopathy. Patient's EKG reviewed and showed sinus rhythm with evidence of first-degree AV block with GA interval of 220 with a rate of 95 bpm. At this point time do believe the patient will warrant admission for draining ofhis pleural effusions and cytology of this as his previous CT scan showed pneumonia versus mass he has a longtime smoker this pleural effusion could be malignant in nature. Will discuss case with hospitalist for admission. Spoke with hospitalist Dr. Dougherty who accept patient for admission. Patientwas notified is agreeable to plan all course concerns answered at bedside. Lab Data Labs: Laboratory Results - last 24 hr 10/23/24 10/23/24 10/23/24 10:41 11:12 12:00 WBC 10.6 RBC 4.71 Hgb 13.4 Hct 42.9 MCV 91.1 MCH 28.5 MCHC 31.2 L RDW Std Deviation 45.9 H RDW Coeff of Carole 13.6 Plt Count 265 MPV 9.7 Immature Gran % (Auto) 0.400 Neut % (Auto) 72.4 H Lymph % (Auto) 10.7 L Cache % (Auto) 9.9 Eos % (Auto) 6.0 H Baso % (Auto) 0.6 Absolute Neuts (auto) 7.7 Absolute Lymphs (auto) 1.13 Nucleated RBC % 0 PT 13.5 INR 1.0 APTT 31.0 Sodium 136 Potassium 4.0 Chloride 93 L Carbon Dioxide 33.9 H Anion Gap 9 BUN 11 Creatinine 0.61 L Estim Creat Clear Calc 97.14 Est GFR (MDRD) Non-Af 99 BUN/Creatinine Ratio 17.4 Glucose 123 H Lactic Acid < 1.0 Calcium 9.5 Total Bilirubin 0.53 AST 16 ALT 8 Alkaline Phosphatase 81 Troponin T High Sens 9 D NT pro BNP II 86 Total Protein 7.9 Albumin 3.8 Globulin 4.0 Albumin/Globulin Ratio 0.9 Urine Color Yellow Urine Clarity Clear Urine pH 7.0 Ur Specific [place] 1.005 Urine Protein 15 H Urine Glucose (UA) Normal Urine Ketones Negative Urine Occult Blood Negative Urine Nitrite Negative Urine Bilirubin Negative Urine Urobilinogen Normal Ur Leukocyte Esterase 100 H Urine RBC 0 SEEN Urine WBC 5-10 SEEN Ur Squamous Epith Cells 0 SEEN Urine Bacteria 0 SEEN Urine Mucus 0 SEEN Radiography Diagnostic Testing: Clinical Impression(s) from Imaging Studies Chest CTA 10/23/24 11:25 IMPRESSION: Large left pleural effusion with volume loss in the left hemithorax due to compressive atelectasis. Small to moderate right pleural effusion with basilar atelectasis. Line hyperplasia of the adrenal glands. Right retrocrural lymphadenopathy. Reading Location: [place] [address] Discharge Plan Triage Chief Complaint: Shortness of Breath ED Provider: Cristofer Miranda Dx/Rx/DC Orders Clinical Impression: Acute hypoxic respiratory failure, COPD (chronic obstructive pulmonary disease), Bilateral pleural effusion Prescriptions: No Action methimazole 5 mg tablet 5 mg PO QDAY Qty: 90 1RF fluticasone furoate-vilanterol [Breo Ellipta] 100-25 mcg/dose blister with device 1 inh inhalation DAILY guaifenesin [Mucus Relief ER] 600 mg tablet extended release 12hr 600 mg PO BID albuterol sulfate 90 mcg/actuation aerosol powdr breath activated 2 inh inhalation Q4H PRN (Reason: shortness of breath) Vitamin B-12 50 mcg lozenge 50 mcg PO DAILY ferrous sulfate [Iron (ferrous sulfate)] 325 mg (65 mg iron) tablet 325 mg PO DAILY furosemide 40 mg tablet 40 mg PO DAILY 30 Days Qty: 30 0RF Primary Care Provider: Thiago Morgan Referrals: Thiago Morgan MD [Primary Care Provider] - Print Language: Tajik Disposition Disposition: Acute Care Hospital [facility] What to do if you have Problems For any increased pain, shortness of breath, bleeding, nausea or vomiting, chestpain, or any unexpected problems, contact your Primary Care Provider. Call [facility] ([phone]) or report to the closest Emergency Room. Call 911 if necessary. 10/23/24 1250 <Electronically signed by Cristofer Miranda DO> Cosigner Signature (if applicable): CC: Dr. Thiago Morgan MD ~ Signed [facility] Work Phone: [phone] 203-801405-19-2025 Radiology Diagnostic study note [facility] Imaging Services [address] [place] [address] Thoracentesis W US MR#: [id number] Acct: [id number] Name: EDUARD RUSSELL Rep #: [id number] : 1945 79 From: Jose Weems MD PCP: Dr. Thiago Morgan MD Status: ADM IN Study:Thoracentesis W US Date of Exam: 0 10/23/24 Exam# [id number] Ordering Dr: Davis Pearson DO PROCEDURE: THORACENTESIS W US 10/23/2024 REASON FOR EXAM: LEFT PLEURAL EFFUSION/RIGHT PLEURAL EFFUSION TECHNIQUE: The procedure as well as the benefits and possible complications including infection and bleeding were explained to the patient. Informed consent was obtained. The overlying skin was prepped and draped in the usual sterile fashion. Following local anesthetic application, a 5 Turkmen catheter was placed into the left pleural space. 1850 mL of clear fluid aspirated. A 100 mL sample was sent to the laboratory. COMPARISON: Prior chest radiograph done earlier in the day. FINDINGS: 1850 mL of clear sandy colored fluid was aspirated. US/Thoracentesis W US IMPRESSION: Successful left thoracentesis. No evidence of pneumothorax. The patient tolerated the procedure well. Reading Location: [facility] CC: Dr. Thiago Morgan MD; Dr. Davis Dougherty DO ~ It Architecture Consultant: Signed [facility]05-19-2025 Discharge summary [facility] Medical Records Department [address] [place] [address] Emergency Department Summary 10/23/24 MR#: [id number] Acct: [id number] Name: EDUARD RUSSELL Rep #:[id number] : 1945 79 From: Cristofer Miranda DO PCP: Dr. Thiago Morgan MD Status:REG ER Location: ED HPI History of Present Illness Chief Complaint: Shortness of Breath Narrative Narrative: Patient is a 79-year-old male with a past medical history of COPD, asthma, essential tremor who presents to the emerged part with chief complaint of cough and shortness of breath. According to at bedside ever since he was in the hospital at the end of August he has had slow progressive decline.She states that he quit smoking and after this things progressively worsen. She states that he usedto do everything and now he can barely walk any amount of distance without becoming very short of breath and they noted that they do have oxygen athome and noted that he has been wearing this more than normal. They state that his oxygen levels at home have been in the 80s. States that they called the on-call physician/nurse line and they advised them to come to the emergency department to be evaluated. Patient states that he has not been on any steroidsrecently [facility] Medical History Essential tremor Cataract COPD (chronic obstructive pulmonary disease) Thyroid disease Asthma Home Medications ?Medication ?Instructions ?Recorded ?Last Taken ?Type methimazole 5 mg tablet 5 mg PO QDAY thyroid #90 tab s 04/26/24 10/23/24 Rx furosemide 40 mg tablet 40 mg PO DAILY 30 days #30 t abs 10/17/24 10/23/24 Rx albuterol sulfate 90 mcg/actuation 2 inh inhalation Q4 H PRN shortness 10/23/24 Unknown History breath activated powder inhaler of breath cyanocobalamin (vitamin B-12) 50 50 mcg PO DAILY 10/23 Unknown History mcg lozenges (Vitamin B-12) ferrous sulfate 325 mg (65 mg 325 mg PO DAILY 10/23/24 Unknown History iron) tablet (Iron (ferrous sulfate)) fluticasone furoate 100 1 inh inhalation DAILY 10/2310/22/24 History mcg-vilanterol 25 mcg/dose inhalation powder (Breo Ellipta) guaifenesin 600 mg tablet, 600 mg PO BID 10/23/2410/05 History extended release 12 hr (Mucus Relief ER) Allergy/AdvReac Type Severity Reaction Status Date / Time shellfish derived AdvReac Mild Nausea/Vom/ Verified 10/23/24 10:29 Diarrhea Family History Mother Colon cancer Sister Colon cancer Surgical History H/O cataract extraction H/O shoulder surgery H/O sinus surgery Social History adopted: No household members: spouse number of children: 2 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: Yes (1) pets and animals: dog(s) Smoking Status: Former smoker Tobacco: How many years used: 40 quit status: considering quitting alcohol intake: never substance use type: does not use caffeine: Yes (1) Type: coffee frequency: does not exercise seatbelt use: always do you feel safe at home: Yes ROS ROS ED ROS Narrative Constitutional: Denies fevers, chills, headaches Eyes: Denies changes double vision blurry vision Cardiovascular: Denies chest pain or palpitations Respiratory: Complains of cough and shortness of breath as noted above Abdomen: Denies abdominal pain nausea vomit diarrhea : Denies urinary symptoms Neurological: Denies numbness, aches, tingling Musculoskeletal: Denies back pain Skin: Denies rashes or lesions EXAM Physical Exam Narrative Exam Narrative: . General: Patient lying in bed rest comfortably did not appear to be acute distress Head: Atraumatic, normocephalic Eyes: PERRL bilaterally, EOMI bilateral, no conjunctival injection noted Neck: Soft, supple, trachea midline Cardiovascular: Patient tachycardic with a regular rhythm Respiratory: End expiratory wheezing noted bilaterally Abdomen: Soft, nondistended, nontender to palpation Extremities: +4/5 strength noted in the bilateral upper and lower extremities, radial pulse +2/4 inboth extremities, no pedal edema on exam Neurological: Patient follow commands knew that he was at [facility] year is 2024 Skin: Warm, dry, tact no rashes or lesions noted Const Vital Signs: 10/23/24 10:27 10/23/24 10:29 10/23/24 10:35 Temperature 98 F 98.0 F Temperature Source Oral Oral Pulse Rate 103 H 93 Respiratory Rate 18 24 H Respiratory Effort Short of Breath Respiratory Depth Normal Respiratory Pattern Tachypnea Blood Pressure 109/79 145/85 H Blood Pressure Mean 89 105 Pulse Ox 92 95 Oxygen Delivery Method Room Air Nasal Cannula Nasal Cannula Oxygen Flow Rate (L/min) 2 4 10/23/24 10:48 10/23/24 10:59 10/23/24 11:00 Temperature Temperature Source Pulse Rate 89 Respiratory Rate 28 H Respiratory Effort Respiratory Depth Respiratory Pattern Tachypnea Blood Pressure Blood Pressure Mean Pulse Ox 96 96 Oxygen Delivery Method Nasal Cannula Nasal Cannula Oxygen Flow Rate (L/min) 2 2 10/23/24 11:26 10/23/24 11:29 10/23/24 12:00 Temperature 98.1 F 97.8 F Temperature Source Oral Oral Pulse Rate 89 90 97 Respiratory Rate 24 H 24 H 28 H Respiratory Effort Respiratory Depth Respiratory Pattern Blood Pressure 115/72 115/72 151/78 H Blood Pressure Mean 86 86 102 Pulse Ox 96 94 94 Oxygen Delivery Method Nasal Cannula Nasal Cannula Nasal Cannula Oxygen Flow Rate (L/min) 2 2 2 10/23/24 12:00 Temperature 97.8 F Temperature Source Oral Pulse Rate 97 Respiratory Rate 28 H Respiratory Effort Respiratory Depth Respiratory Pattern Blood Pressure 151/78 H Blood Pressure Mean 102 Pulse Ox 94 Oxygen Delivery Method Nasal Cannula Oxygen Flow Rate (L/min) 2 MDM MDM MDM Narrative Medical decision making narrative: Patient is a 79-year-old male who presented to the emergency department with chief complaint of cough and shortness of breath. On the differential diagnosisincludes but not limited to COPD exacerbation, pneumonia, pneumothorax, neoplasm. Once workup is obtained reviewed he will be reevaluated. Patient will be given a dose of prednisone as well as DuoNebs and 1 L of fluid as there is concern for ahypervolemic state therefore 30 cc/kg bolus of IV fluids will not be given. Previous records were reviewed and including a CT chest back in August that was read as infiltrate versus developing neoplasm therefore added on a CT of the chest today. Patient CBC was reviewed showed no evidence leukocytosis white blood count normal at 10.6, hemoglobin 13.4, platelet count was 265. Patient INR normal at 1, PT of 13.5. Patient sodium normal 136, potassium normal at 4, creatinine wasnormal at 0.61. Patient's AST and ALT were 16 and 8 respectively, troponin was noted to be normal at 9 proBNP normal at 86. Patient urinalysis reviewed showedno evidence of infection. Patient CTA of the chest reviewed showed a large leftpleural effusion with volume loss in the left hemithorax due to compressive atelectasis small to moderate right pleural effusion with basilar atelectasis line hyperplasia of the adrenal glands right retrocrural lymphadenopathy. Terry vera's EKG reviewed and showed sinus rhythm with evidence of first-degree AV block with GA interval of 220 with a rate of 95 bpm. At this point time do believe the patient will warrant admission for draining ofhis pleural effusions and cytology of this as his previous CT scan showed pneumonia versus mass he has a longtime smoker this pleural effusion could be malignant in nature. Will discuss case with hospitalist for admission. Spoke with hospitalist Dr. Dougherty who accept patient for admission. Patientwas notified is agreeable to plan all course concerns answered at bedside. Lab Data Labs: Laboratory Results - last 24 hr 10/23/24 10/23/24 10/23/24 10:41 11:12 12:00 WBC 10.6 RBC 4.71 Hgb 13.4 Hct 42.9 MCV 91.1 MCH 28.5 MCHC 31.2 L RDW Std Deviation 45.9 H RDW Coeff of Carole 13.6 Plt Count 265 MPV 9.7 Immature Gran % (Auto) 0.400 Neut % (Auto) 72.4 H Lymph % (Auto) 10.7 L Cache % (Auto) 9.9 Eos % (Auto) 6.0 H Baso % (Auto) 0.6 Absolute Neuts (auto) 7.7 Absolute Lymphs (auto) 1.13 Nucleated RBC % 0 PT 13.5 INR 1.0 APTT 31.0 Sodium 136 Potassium 4.0 Chloride 93 L Carbon Dioxide 33.9 H Anion Gap 9 BUN 11 Creatinine 0.61 L Estim Creat Clear Calc 97.14 Est GFR (MDRD) Non-Af 99 BUN/Creatinine Ratio 17.4 Glucose 123 H Lactic Acid < 1.0 Calcium 9.5 Total Bilirubin 0.53 AST 16 ALT 8 Alkaline Phosphatase 81 Troponin T High Sens 9 D NT pro BNP II 86 Total Protein 7.9 Albumin 3.8 Globulin 4.0 Albumin/Globulin Ratio 0.9 Urine Color Yellow Urine Clarity Clear Urine pH 7.0 Ur Specific [place] 1.005 Urine Protein 15 H Urine Glucose (UA) Normal Urine Ketones Negative Urine Occult Blood Negative Urine Nitrite Negative Urine Bilirubin Negative Urine Urobilinogen Normal Ur Leukocyte Esterase 100 H Urine RBC 0 SEEN Urine WBC 5-10 SEEN Ur Squamous Epith Cells 0 SEEN Urine Bacteria 0 SEEN Urine Mucus 0 SEEN Radiography Diagnostic Testing: Clinical Impression(s) from Imaging Studies Chest CTA 10/23/24 11:25 IMPRESSION: Large left pleural effusion with volume loss in the left hemithorax due to compressive atelectasis. Small to moderate right pleural effusion with basilar atelectasis. Line hyperplasia of the adrenal glands. Right retrocrural lymphadenopathy. Reading Location: [facility] Discharge Plan Triage Chief Complaint: Shortness of Breath ED Provider: Cristofer Miranda Dx/Rx/DC Orders Clinical Impression: Acute hypoxic respiratory failure, COPD (chronic obstructive pulmonary disease), Bilateral pleural effusion Prescriptions: No Action methimazole 5 mg tablet 5 mg PO QDAY Qty: 90 1RF fluticasone furoate-vilanterol [Breo Ellipta] 100-25 mcg/dose blister with device 1 inh inhalation DAILY guaifenesin [Mucus Relief ER] 600 mg tablet extended release 12hr 600 mg PO BID albuterol sulfate 90 mcg/actuation aerosol powdr breath activated 2 inh inhalation Q4H PRN (Reason: shortness of breath) Vitamin B-12 50 mcg lozenge 50 mcg PO DAILY ferrous sulfate [Iron (ferrous sulfate)] 325 mg (65 mg iron) tablet 325 mg PO DAILY furosemide 40 mg tablet 40 mg PO DAILY 30 Days Qty: 30 0RF Primary Care Provider: Thiago Morgan Referrals: Thiago Morgan MD [Primary Care Provider] - Print Language: Tajik Disposition Disposition: Acute Care Hospital [facility] What to do if you have Problems For any increased pain, shortness of breath, bleeding, nausea or vomiting, chestpain, or any unexpected problems, contact your Primary Care Provider. Call [facility] ([phone]) or report tothe closest Emergency Room. Call 911 if necessary. 10/23/24 1250 Cosigner Signature (if applicable): CC: Dr. Thiago Morgan MD ~ Signed [facility]05-19-2025 Radiology Diagnostic study note [facility] Imaging Services [address] [address] CTA Chest W/WO Contrast MR#: [id number] Acct: [id number] Name: EDUARD RUSSELL Rep #: [id number] : 1945 79 From: Jose Weems MD PCP: Dr. Thiago Morgan MD Status: REG ER Study:CTA Chest W/WO Contrast Date of Exam: 10/23/24 Exam# [id number] Ordering Dr: Annette Miranda DO PROCEDURE: CTA CHEST W/WO CONTRAST 10/23/2024 REASON FOR EXAM: SOB, COUGH TECHNIQUE: CTA axial imaging of the chest with intravenous contrast. Multiplanar and multisequence images wereobtained. PATIENT PREPARATION: Per protocol One or more dose reduction techniques were used (e.g., Automated exposure control, adjustment of the mA and/or kV according to patient size, use of iterative reconstruction technique). CONTRAST: Isovue-300 VOLUME: 100 mL RADIATION DOSE SUMMARY: CTDlvol: 17.21 mGy DLP: 718.09 mGycm COMPARISON: Prior study dated September 03, 2024. FINDINGS: Hardware: None Lymph nodes: Right retrocrural lymphadenopathy. Small mediastinal lymph nodes. Heart: Coronary artery calcification. Thoracic Aorta: No thoracic aortic aneurysm or dissection. Pulmonary Vessels: No evidence of pulmonary embolism. Lungs and Airways: Large left pleural effusion with compressive atelectasis of the left lower lobe.Small right pleural effusion with right basilar compressive atelectasis. Upper Abdomen: Hyperplasia of the adrenal glands more prominent on the left side. Bones: Degenerative changes of the thoracic spine. CT/CTA Chest W/WO Contrast IMPRESSION: Large left pleural effusion with volume loss in the left hemithorax due to compressive atelectasis. Small to moderate right pleural effusion with basilar atelectasis. Line hyperplasia of the adrenal glands. Right retrocrural lymphadenopathy. Reading Location: [facility] C[facility] CC: Dr. Thiago Morgan MD; Dr. Cristofer Miranda DO ~ It Architecture Consultant: Signed [facility]04-16-2025 Radiology Diagnostic study note [facility] Imaging Services [address] [place], [place] [address] Chest PA and Lateral MR#: [id number] Acct: [id number] Name: EDUARD RUSSELL Rep #: [id number] : 1945 M 79 From: Wesley Whitlock MD PCP: Dr. Thiago Morgan MD Status: REG CLI Study:Chest PA and Lateral Date of Exam: 09/19/24 Exam# [id number] Ordering Dr: Thiago Morgan MD PROCEDURE: CHEST PA AND LATERAL 09/19/2024 REASON FOR EXAM: EFFUSION TECHNIQUE: Frontal and lateral views of the chest. COMPARISON: 09/03/2024. FINDINGS: Minimal decrease in bilateral pleural effusions. Minimal decrease in passive atelectatic airspace disease of the lower lobes. Unremarkable cardiac silhouette. Unchanged atheromatous plaques of the aorta. Unchanged moderate diffuse spondylosis. RAD/Chest PA and Lateral IMPRESSION: Minimal decrease in bilateral pleural effusions. Minimal decrease in passive atelectatic airspace disease of the lower lobes. Unremarkable cardiac silhouette. Reading Location: [place] [address] CC: Dr. Thiago Morgan MD ~ It Architecture Consultant: Signed [facility]04-14-2025 Evaluation note* Diagnosis Onset Date Resolution Status Admit Date Abnormal craving noneactive September 182024 1:20pm Moderate sized pleural effusion none active September 18, 2024 1:20pm Decreased energy noneactive September 182024 1:20pm Acute hypoxic respiratory failure noneactive September 18, 2024 1:20pm COPD (chronic obstructive pulmonary disease) noneactive September 18, 2 025 1:20pm Hospital discharge follow-up noneact mary September 18, 2024 1:20pm Hypoxia inactive October 23, 2024 2:14pm Bilateral pleural effusion chronic November 02, 2024 10:24am COPD (chronic obstructive pulmonary disease) chronic November 02 10:24am Pleural effusion, right acute J 2024 1:15pm Bilateral pleural effusion chronic November 16, 2024 1:15pm Bilateral pleural effusion chronic November 24, 2024 10:05am Acute hypoxic respiratory failure acute December 05, 2024 10:27am Bilateral pleural effusion chronic December 05, 2024 10:27am COPD (chronic obstructive pulmonary disease) chronic December 05 10:27am Immunization due noneactive December 10:19am Chronic respiratory failure noneacti ve December 21, 2024 10:19am Hyperthyroidism noneactive December 10:19am COPD (chronic obstructive pulmonary disease) noneactive December 21 10:19am Recurrent pleural effusion noneactiv e December 21, 2024 10:19am Quit smoking noneactive December 21 025 10:19am [facility] Work Phone: 1(614) 415-846404-02-2025 Consult note Author Elba Saxena [facility] Note Date/Time September 06, 2024 11:4 8am [facility] Medical Records Department [address] [place] [address] Counseling Note - Pharmacy 09/06/24 1146 MR#: [id number] Acct: [id number] Name: DREWEDUARD ABUNDIO Rep #:[id number] : 1945 79 From: Elba Saxena PCP: Dr. Thiago Morgan MD Status:ADM IN Y Location: [place] [address] Pharmacy [facility] Pharmacy Service has performed discharge medication reconciliation and counseling for this patient. 1. AZITHROMYCIN 500MG PO DAILY X 5 DAYS 2. FUROSEMIDE 40MG PO DAILY 3. GUAIFENESIN 600MG PO BID 4. PREDNISONE 20MG PO BID X 7 DAYS The patient's discharge medication list was reviewed for discrepancies and discrepancies were resolved. The patient was counseled on the following discharge medications and changes in medications for homegoing were reviewed. The Reason for Use, instructions for use, and potential side effects were reviewed for all new medications. The patient's questions regarding all of their medications were answered. The patient was able to verbally demonstrate an understanding of their dischargemedications. Medications at Discharge Home Medications methimazole 5 mg tablet 5 mg PO QDAY thyroid #90 tabs 04/26/24 fluticasone furoate 100 mcg-vilanterol 25 mcg/dose inhalation powder (Breo Ellipta) 1 inh inhalation DAILY breathing 09/03/24 azithromycin 250 mg tablet 500 mg (2 x 250 mg) PO Q24 5 days #10 tabs 09/06/24 furosemide 40 mg tablet 40 mg PO DAILY 30 days #30 tabs 09/06/24 guaifenesin 600 mg tablet, extended release 12 hr (Mucinex) 600 mg PO BID 10 days #20 tabs 09/06/24 prednisone 20 mg tablet 20 mg PO BID 7 days #14 tabs 09/06/24 09/06/24 1148 <Electronically signed by Elba Saxena> Date _ Elba Saxena Cosigner Signature (if applicable): Date CC: ~ Signed [facility] Work Phone: 1(754) 285-861804-02-2025 Discharge summary Author Ty Cunningham [facility] Note Date/Time September 06, 2024 10:4 6am [facility] Medical Records Department [address] [place] [address] Discharge Summary 09/06/24 1041 MR#: [id number] Acct: [id number] Name: DILMABRICEEDUARD ABUNDIO Rep #:[id number] : 1945 79 From: Ty Cunningham MD PCP: Dr. Thiago Morgan MD Status:ADM [facility] Prov[facility] Date of Admission: 09/03/24 Date of Discharge: 09/06/24 Primary Care Physician: Dr. Thiago Morgan MD Reason For Visit: COPD EXACERBATION, HYPOXIA Diagnosis Discharge Diagnosis (1) COPD exacerbation: Status: Resolved Code(s): J44.1 - Chronic obstructive pulmonary disease with (acute) exacerbation Plan Patient is a 79-year-old gentleman admitted with progressive shortness of breathdiagnosed with COPD with acute exacerbation. 1. Acute hypoxia ? Due to combination of CHF and COPD with acute exacerbation. CT of the chest demonstrated Moderate bilateral pleural effusions with compressive atelectasis in the bilateral lower lobes. Can not exclude developing infiltrate or superimposed neoplasm. Mild emphysematous changes primarily in the upper lobes. Mild coronary artery calcification. Placed on supplemental oxygen admitted to a monitored bed for subsequent management ? 09/05/2024 ; patient remains on supplemental oxygen requesting to be discharged plan is for patient to undergo 6-minute oxygen requirement assessment prior to making a decision regarding disposition ? 09/06/2024 I have reviewed the oxygen testing, and this patient qualifies for the home equipment and portability. The patient is mobile in the home and the community. 2. COPD with acute exacerbation ? Admitted to monitored bed managed with systemic steroid, bronchodilator treatment as well as antibiotic therapy. Patient was placed on supplemental oxygen titrated to keep saturation greater than 90 3. Acute congestive heart failure ? CT demonstrated moderate bilateral pleural effusion. Patient started on diuretic therapy in addition to strict input and output, daily weight, fluid restriction as well as diuretic therapy with furosemide echo ordered for EF assessment ?09/05/2024; patient responded to diuretic therapy. 2D echo obtained did show ; Normal LV size. Left ventricular systolic function is normal. The left ventricular ejection fraction is 60 %. Patient is in negative fluid balance diddecrease dose of diuretic therapy 4. Moderate bilateral pleural effusion ? Secondary to acute congestive heart failure patient started on furosemide do expect response to therapy 5. Hypothyroidism ? Patient is on methimazole 6. Tobacco dependence ? Counseled on cessation, offered nicotine patch for tobacco cravings 7. DVT prophylaxis ? On enoxaparin Time spent in the patient's overall evaluation,decision-making process, review of diagnostic data, adjustment of management, discussion with other providers, nursing nursing and ancillary staff involved in patient's care documentation, 38 Minutes Medications at Discharge Home Medications methimazole 5 mg tablet 5 mg PO QDAY #90 tabs 04/26/24 fluticasone furoate 100 mcg-vilanterol 25 mcg/dose inhalation powder (Breo Ellipta) 1 inh inhalation DAILY 09/03/24 azithromycin 250 mg tablet 500 mg (2 x 250 mg) PO Q24 5 days #10 tabs 09/06/24 furosemide 40 mg tablet 40 mg PO DAILY 30 days #30 tabs 09/06/24 guaifenesin 600 mg tablet, extended release 12 hr (Mucinex) 600 mg PO BID 10 days #20 tabs 09/06/24 prednisone 20 mg tablet 20 mg PO BID 7 days #14 tabs 09/06/24 Physical Exam Narrative GENERAL: cooperative HEENT: Atraumatic; normocephalic EYES; Anicteric, Normal Conjunctiva NECK; supple, normal thyroid, RESPIRATORY: Diminished to auscultation CARDIOVASCULAR: Regular S1 S2, GI: soft, normoactive bowel sounds, : No Renal angle tenderness; EXTREMITIES: No edema, no clubbing, MUSCULOSKELETAL: no muscle wasting NEURO: Awake; no lateralizing signs. SKIN: No Rash PSYCH; Flat affect Weight / BMI Weight Weight: 97.7 kg Body Mass Index (BMI) 28.4 ABG / Lab / Microbiology Data 09/06/24 04:32 09/06/24 04:32 Laboratory: Laboratory Results - last 24 hr 09/06/24 04:32: WBC 11.3 H, RBC 4.80, Hgb 13.7, Hct 44.1, MCV 91.9, MCH 28.5, MCHC 31.1 L, RDW Std Deviation 44.8 H, RDW Coeff of Carole 13.2, Plt Count 296, MPV 10.2, Immature Gran % (Auto) 0.600, Neut % (Auto) 88.8 H, Lymph % (Auto) 4.4 L, Cache % (Auto) 6.0, Eos % (Auto) 0.1, Baso % (Auto) 0.1, Absolute Neuts (auto) 10.0 H, Absolute Lymphs (auto) 0.50 L, Nucleated RBC % 0, Sodium 136, Potassium 4.4, Chloride 96 L, Carbon Dioxide 29.3, Anion Gap 11, BUN 24 H, Creatinine 0.63L, Estim Creat Clear Calc 95.18, Est GFR (MDRD) Non-Af 98, BUN/Creatinine Ratio 38.3 H, Glucose 118 H, Calcium 8.7 Microbiology: Microbiology 09/04/24 11:07 Sputum, Expectorated/Coughed Gram Stain - Final 09/04/24 11:07 Sputum, Expectorated/Coughed Respiratory Culture - Preliminary Streptococcus pneumoniae 09/03/24 17:10 Mucosa - Nasopharyngeal Respiratory Panel (PCR) - Final 09/03/24 17:10 Mucosa - Nasopharyngeal SARS-CoV-2, Influenza & RSV (PCR) - Final D/C Instructions Discharge Diet: No restrictions Discharge Activity: Return to Normal Activity Call your doctor if you observe: Fever of 101 or Higher, Shortness of breath, Fainting spells and Chest pain DC O2, CPAP, BIPAP Needs Home O2 Discharge instructions: Yes Type of respiratory needs?: Oxygen Oxygen frequency: With Ambulation Oxygen liters per minute during Ambulation: 5 and Other (rest) Other oxygen liters per minute: 2L Other oxygen frequency: Continuous DC home with Oxygen: Yes Home O2 MD Review: I have reviewed the oxygen testing, and the patient qualifies for home oxygen equipment and portability. The patient is mobile in the home and the community. Meaningful Use Info Meaningful Use Meaningful Use Diagnoses (Choose all that apply): CHF CHF GENIA/ARB ordered at discharge?: No Reason GENIA/ARB not ordered?: Not indicated Documented LVEF (%): 60 Ischemic Stroke Statin Dosing Therapy Reference: STATIN DOSE THERAPY REFERENCE: * Patients > 75 years receive moderate or high dose statin therapy. * Patients 75 years or YOUNGER should receive HIGH intensity statin dose unless contraindicated. You will be required to document reason for non-treatment if statin daily dose does not meet guidelines. HIGH DOSE STATIN THERAPY DAILY Atorvastatin > than or = to 40 mg Rosuvastatin > than or = to 20 mg Amlodipine + Atorvastatin > than or = to 2.5/40 mg Ezetimibe + Simvastatin 10/80 mg Simvastatin 80mg Discharge Plan Admission Admit Date/Time: 09/03/24 15:49 Attending Provider: Ty Cunningham Primary Care Provider: Thiago Morgan Consulting Providers: Vibha Matias Discharge Orders/Prescriptions Prescriptions: New furosemide 40 mg Tablet 40 mg PO DAILY 30 Days Qty: 30 0RF azithromycin 250 mg Tablet 500 mg PO Q24 5 Days Qty: 10 0RF guaifenesin [Mucinex] 600 mg Tablet Extended Release 12hr 600 mg PO BID 10 Days Qty: 20 0RF prednisone 20 mg tablet 20 mg PO BID 7 Days Qty: 14 0RF Continued methimazole 5 mg tablet 5 mg PO QDAY Qty: 90 1RF fluticasone furoate-vilanterol [Breo Ellipta] 100-25 mcg/dose blister with device 1 inh inhalation DAILY Referrals / Follow Up: Thiago Morgan MD [Primary Care Provider] - Within 2 Weeks Issac Dexter MD [Med Staff - Active Staff] - Within 2 Weeks Disposition Disposition (needs filled in before D/C Order can be placed): Home, Self Care 09/06/24 1046 <Electronically signed by Ty Cunningham MD> Cosigner Signature (if applicable): CC: Dr. Thiago Morgan MD; Dr. Ty Cunningham MD~ Signed [facility] Work Phone: 1(759) 608-653704-02-2025 Consult note [facility] Medical Records Department [address] [place] [address] Counseling Note - Pharmacy 09/06/24 1146 MR#: [id number] Acct: [id number] Name: EDUARD RUSSELL Rep #:[id number] : 1945 79 From: Elba Saxena PCP: Dr. Thiago Morgan MD Status:ADM IN Y Location: [place] [address] Pharmacy [facility] Pharmacy Service has performed discharge medication reconciliation and counseling for this patient. 1. AZITHROMYCIN 500MG PO DAILY X 5 DAYS 2. FUROSEMIDE 40MG PO DAILY 3. GUAIFENESIN 600MG PO BID 4. PREDNISONE 20MG PO BID X 7 DAYS The patient's discharge medication list was reviewed for discrepancies and discrepancies were resolved. The patient was counseled on the following discharge medications and changes in medications for homegoing were reviewed. The Reason for Use, instructions for use, and potential side effects were reviewed for all new medications. The patient's questions regarding all of their medications were answered. The patient was able to verbally demonstrate an understanding of their dischargemedications. Medications at Discharge Home Medications methimazole 5 mg tablet 5 mg PO QDAY thyroid #90 tabs 04/26/24 fluticasone furoate 100 mcg-vilanterol 25 mcg/dose inhalation powder (Breo Ellipta) 1 inh inhalation DAILY breathing 09/03/24 azithromycin 250 mg tablet 500 mg (2 x 250 mg) PO Q24 5 days #10 tabs 09/06/24 furosemide 40 mg tablet 40 mg PO DAILY 30 days #30 tabs 09/06/24 guaifenesin 600 mg tablet, extended release 12 hr (Mucinex) 600 mg PO BID 10 days #20 tabs 09/06/24 prednisone 20 mg tablet 20 mg PO BID 7 days #14 tabs 09/06/24 09/06/24 1148 Date _ Elba Burgessigner Signature (if applicable): Date CC: ~ Signed [facility]04-02-2025 Discharge summary [facility] Medical Records Department [address] [place] [address] Discharge Summary 09/06/24 1041 MR#: [id number] Acct: [id number] Name: EDUARD RUSSELL Rep #:[id number] : 1945 79 From: Ty Cunningham MD PCP: Dr. Thiago Morgan MD Status:ADM IN Location: [place] [address] Providers Date of Admission: 09/03/24 Date of Discharge: 09/06/24 Primary Care Physician: Dr. Thiago Morgan MD Reason For Visit: COPD EXACERBATION, HYPOXIA Diagnosis Discharge Diagnosis (1) COPD exacerbation: Status: Resolved Code(s): J44.1 - Chronic obstructive pulmonary disease with (acute) exacerbation Plan Patient is a 79-year-old gentleman admitted with progressive shortness of breathdiagnosed with COPDwith acute exacerbation. 1. Acute hypoxia ? Due to combination of CHF and COPD with acute exacerbation. CT of the chest demonstrated Moderatebilateral pleural effusions with compressive atelectasis in the bilateral lower lobes. Can not exclude developing infiltrate or superimposed neoplasm. Mild emphysematous changes primarily in the upper lobes. Mild coronary artery calcification. Placed on supplemental oxygen admitted to a monitored bed for subsequent management ? 09/05/2024 ; patient remains on supplemental oxygen requesting to be discharged plan is for patientto undergo 6-minute oxygen requirement assessment prior to making a decision regarding disposition ? 09/06/2024 I have reviewed the oxygen testing, and this patient qualifies for the home equipment and portability. The patient is mobile in the home and the community. 2. COPD with acute exacerbation ? Admitted to monitored bed managed with systemic steroid, bronchodilator treatment as well as antibiotic therapy. Patient was placed on supplemental oxygen titrated to keep saturation greater than 90 3. Acute congestive heart failure ? CT demonstrated moderate bilateral pleural effusion. Patient started on diuretic therapy in addition to strict input and output, daily weight, fluid restriction as well as diuretic therapy with furosemide echo ordered for EF assessment ?09/05/2024; patient responded to diuretic therapy. 2D echo obtained did show ; Normal LV size. Left ventricular systolic function is normal. The left ventricular ejection fraction is 60 %. Patient is in negative fluid balance diddecrease dose of diuretic therapy 4. Moderate bilateral pleural effusion ? Secondary to acute congestive heart failure patient started on furosemide do expect response to therapy 5. Hypothyroidism ? Patient is on methimazole 6. Tobacco dependence ? Counseled on cessation, offered nicotine patch for tobacco cravings 7. DVT prophylaxis ? On enoxaparin Time spent in the patient's overall evaluation,decision-making process, review of diagnostic data, adjustment of management, discussion with other providers, nursing nursing and ancillary staff involved in patient's care documentation, 38 Minutes Medications at Discharge Home Medications methimazole 5 mg tablet 5 mg PO QDAY #90 tabs 04/26/24 fluticasone furoate 100 mcg-vilanterol 25 mcg/dose inhalation powder (Breo Ellipta) 1 inh inhalation DAILY 09/03/24 azithromycin 250 mg tablet 500 mg (2 x 250 mg) PO Q24 5 days #10 tabs 09/06/24 furosemide 40 mg tablet 40 mg PO DAILY 30 days #30 tabs 09/06/24 guaifenesin 600 mg tablet, extended release 12 hr (Mucinex) 600 mg PO BID 10 days #20 tabs 09/06/24 prednisone 20 mg tablet 20 mg PO BID 7 days #14 tabs 09/06/24 Physical Exam Narrative GENERAL: cooperative HEENT: Atraumatic; normocephalic EYES; Anicteric, Normal Conjunctiva NECK; supple, normal thyroid, RESPIRATORY: Diminished to auscultation CARDIOVASCULAR: Regular S1 S2, GI: soft, normoactive bowel sounds, : No Renal angle tenderness; EXTREMITIES: No edema, no clubbing, MUSCULOSKELETAL: no muscle wasting NEURO: Awake; no lateralizing signs. SKIN: No Rash PSYCH; Flat affect Weight / BMI Weight Weight: 97.7 kg Body Mass Index (BMI) 28.4 ABG / Lab / Microbiology Data 09/06/24 04:32 09/06/24 04:32 Laboratory: Laboratory Results - last 24 hr 09/06/24 04:32: WBC 11.3 H, RBC 4.80, Hgb 13.7, Hct 44.1, MCV 91.9, MCH 28.5, MCHC 31.1 L, RDW Std Deviation 44.8 H, RDW Coeff of Carole 13.2, Plt Count 296, MPV 10.2, Immature Gran % (Auto) 0.600, Neut% (Auto) 88.8 H, Lymph % (Auto) 4.4 L, Cache % (Auto) 6.0, Eos % (Auto) 0.1, Baso % (Auto) 0.1, Absolute Neuts (auto) 10.0 H, Absolute Lymphs (auto) 0.50 L, Nucleated RBC % 0, Sodium 136, Potassium 4.4, Chloride 96 L, Carbon Dioxide 29.3, Anion Gap 11, BUN 24 H, Creatinine 0.63L, Estim Creat Clear Calc 95.18, Est GFR (MDRD) Non-Af 98, BUN/Creatinine Ratio 38.3 H, Glucose 118 H, Calcium 8.7 Microbiology: Microbiology 09/04/24 11:07 Sputum, Expectorated/Coughed Gram Stain - Final 09/04/24 11:07 Sputum, Expectorated/Coughed Respiratory Culture - Preliminary Streptococcus pneumoniae 09/03/24 17:10 Mucosa - Nasopharyngeal Respiratory Panel (PCR) - Final 09/03/24 17:10 Mucosa - Nasopharyngeal SARS-CoV-2, Influenza & RSV (PCR) - Final D/C Instructions Discharge Diet: No restrictions Discharge Activity: Return to Normal Activity Call your doctor if you observe: Fever of 101 or Higher, Shortness of breath, Fainting spells and Chest pain DC O2, CPAP, BIPAP Needs Home O2 Discharge instructions: Yes Type of respiratory needs?: Oxygen Oxygen frequency: With Ambulation Oxygen liters per minute during Ambulation: 5 and Other (rest) Other oxygen liters per minute:2L Other oxygen frequency: Continuous DC home with Oxygen: Yes Home O2 MD Review: I have reviewed the oxygen testing, and the patient qualifies for home oxygen equipment and portability. The patient is mobile in the home and the community. Meaningful Use Info Meaningful Use Meaningful Use Diagnoses (Choose all that apply): CHF CHF GENIA/ARB ordered at discharge?: No Reason GENIA/ARB not ordered?: Not indicated Documented LVEF (%): 60 Ischemic Stroke Statin Dosing Therapy Reference: STATIN DOSE THERAPY REFERENCE: * Patients > 75 years receive moderate or high dose statin therapy. * Patients 75 years or YOUNGER should receive HIGH intensity statin dose unless contraindicated. You will be required to document reason for non-treatment if statin daily dose does not meet guidelines. HIGH DOSE STATIN THERAPY DAILY Atorvastatin > than or = to 40 mg Rosuvastatin > than or = to 20 mg Amlodipine + Atorvastatin > than or = to 2.5/40 mg Ezetimibe + Simvastatin 10/80 mg Simvastatin 80mg Discharge Plan Admission Admit Date/Time: 09/03/24 15:49 Attending Provider: Ty Cunningham Primary Care Provider: Thiago Morgan Consulting Providers: Vibha Matias Discharge Orders/Prescriptions Prescriptions: New furosemide 40 mg Tablet 40 mg PO DAILY 30 Days Qty: 30 0RF azithromycin 250 mg Tablet 500 mg PO Q24 5 Days Qty: 10 0RF guaifenesin [Mucinex] 600 mg Tablet Extended Release 12hr 600 mg PO BID 10 Days Qty: 20 0RF prednisone 20 mg tablet 20 mg PO BID 7 Days Qty: 14 0RF Continued methimazole 5 mg tablet 5 mg PO QDAY Qty: 90 1RF fluticasone furoate-vilanterol [Breo Ellipta] 100-25 mcg/dose blister with device 1 inh inhalation DAILY Referrals / Follow Up: Thiago Morgan MD [Primary Care Provider] - Within 2 Weeks Issac Dexter MD [Med Staff - Active Staff] - Within 2 Weeks Disposition Disposition (needs filled in before D/C Order can be placed): Home, Self Care 09/06/24 1046 Cosigner Signature (if applicable): CC: Dr. Thiago Morgan MD; Dr. Ty Cunningham MD~ Signed [facility]04-02-2025 NoteWooSelect [facility], [facility]04-01-2025 Progress note Author Ty Cunningham [facility] Note Date/Time September 05, 2024 10:0 7am [facility] Medical Records Department [address] [place] [address] Progress Note - Hospitalist 09/05/24 0814 MR#: [id number] Acct: [id number] Name: EDUARD RUSSELL Rep #:[id number] : 1945 79 From: Ty Cunningham MD PCP: Dr. Thiago Morgan MD Status:ADM IN Location: [place] [address] Reason for Visit Reason for Visit: Diagnoses Chronic obstructive pulmonary disease with (acute) exacerbation (09/03/24) Subjective Subjective Patient seen still remains on supplemental oxygen currently on 3 L flow per minute echo demonstrated EF of 60%. Objective Data Objective Data Vital Signs: Vital Signs Temp Pulse Resp BP Pulse Ox O2 Del Method O2 Flow Rate 98 F 93 18 129/75 H 92 Nasal Cannula 3 09/05/24 02:00 09/05/24 03:58 09/05/24 03:58 09/05/24 02:00 09/05/24 03:59 09/05/24 03:59 09/05/24 03:59 Oxygen Flow Rate (L/min) 3 Oxygen Delivery Method Nasal Cannula Weight: 97.5 kg Body Mass Index (BMI) 28.5 Intake & Output: Intake and Output for Last 24 Hours 09/03/24 09/04/24 09/05/24 23:59 23:59 23:59 Intake Total 2100 / 2460 480 / 480 Output Total 1500 / 2500 1600 / 1600 Balance 600 / -40 -1120 / -1120 Lab / Micro Data 09/05/24 05:28 09/05/24 05:28 Labs: Laboratory Results - last 24 hr 09/05/24 05:28: WBC 12.3 H, RBC 4.96, Hgb 14.2, Hct 45.0, MCV 90.7, MCH 28.6, MCHC 31.6 L, RDW Std Deviation 44.0 H, RDW Coeff of Carole 13.3, Plt Count 309, MPV 10.2, Immature Gran % (Auto) 0.600, Neut % (Auto) 87.2 H, Lymph % (Auto) 5.2 L, Cache % (Auto) 6.7, Eos % (Auto) 0.1, Baso % (Auto) 0.2, Absolute Neuts (auto) 10.7 H, Absolute Lymphs (auto) 0.64 L, Nucleated RBC % 0, Sodium 138, Potassium 4.6, Chloride 96 L, Carbon Dioxide 32.2 H, Anion Gap 10, BUN 17, Creatinine 0.66L, Estim Creat Clear Calc 95.09, Est GFR (MDRD) Non-Af 97, BUN/Creatinine Ratio 25.9 H, Glucose 120 H, Calcium 9.3, Phosphorus 3.7, Magnesium 2.2, [id number], Cholesterol 178, LDL Cholesterol, Calc 109, VLDL Cholesterol 11, HDL Cholesterol 58, Cholesterol/HDL Ratio 3.06 Micro: Microbiology 09/03/24 17:10 Mucosa - Nasopharyngeal Respiratory Panel (PCR) - Final 09/03/24 17:10 Mucosa - Nasopharyngeal SARS-CoV-2, Influenza & RSV (PCR) - Final Radiography Diagnostic Testing: Radiology Impression Echocardiogram 09/03/24 16:08 Interpretation Summary Normal LV size. Left ventricular systolic function is normal. The left ventricular ejection fraction is 60 %. Contrast injection was performed. Ordering Physician: Vibha Matias Referring Physician: THIAGO MORGAN Performed By: Mariajose Cardozo RDCS Physical Exam Narrative GENERAL: cooperative HEENT: Atraumatic; normocephalic EYES; Anicteric, Normal Conjunctiva NECK; supple, normal thyroid, RESPIRATORY: Diminished to auscultation CARDIOVASCULAR: Regular S1 S2, GI: soft, normoactive bowel sounds, : No Renal angle tenderness; EXTREMITIES: No edema, no clubbing, MUSCULOSKELETAL: no muscle wasting NEURO: Awake; no lateralizing signs. SKIN: No Rash PSYCH; Flat affect Assessment & Plan Assessment/Plan (1) COPD exacerbation: PLAN: Plan Patient is a 79-year-old gentleman admitted with progressive shortness of breathdiagnosed with COPD with acute exacerbation. 1. Acute hypoxia ? Due to combination of CHF and COPD with acute exacerbation. CT of the chest demonstrated Moderate bilateral pleural effusions with compressive atelectasis in the bilateral lower lobes. Can not exclude developing infiltrate or superimposed neoplasm. Mild emphysematous changes primarily in the upper lobes. Mild coronary artery calcification. Placed on supplemental oxygen admitted to a monitored bed for subsequent management ? 09/05/2024 ; patient remains on supplemental oxygen requesting to be discharged plan is for patient to undergo 6-minute oxygen requirement assessment prior to making a decision regarding disposition 2. COPD with acute exacerbation ? Admitted to monitored bed managed with systemic steroid, bronchodilator treatment as well as antibiotic therapy. Patient was placed on supplemental oxygen titrated to keep saturation greater than 90 3. Acute congestive heart failure ? CT demonstrated moderate bilateral pleural effusion. Patient started on diuretic therapy in addition to strict input and output, daily weight, fluid restriction as well as diuretic therapy with furosemide echo ordered for EF assessment ?09/05/2024; patient responded to diuretic therapy. 2D echo obtained did show ; Normal LV size. Left ventricular systolic function is normal. The left ventricular ejection fraction is 60 %. Patient is in negative fluid balance diddecrease dose of diuretic therapy 4. Moderate bilateral pleural effusion ? Secondary to acute congestive heart failure patient started on furosemide do expect response to therapy 5. Hypothyroidism ? Patient is on methimazole 6. Tobacco dependence ? Counseled on cessation, offered nicotine patch for tobacco cravings 7. DVT prophylaxis ? On enoxaparin Time spent in the patient's overall evaluation,decision-making process, review of diagnostic data, adjustment of management, discussion with other providers, nursing nursing and ancillary staff involved in patient's care documentation, 38 Minutes Charges/Coding Visit Charges Inpatient E&M: 14344 Subs Hosp L2 09/05/24 1007 <Electronically signed by Ty Cunningham MD> Cosigner Signature (if applicable): CC: ~ Signed [facility] Work Phone: 1(507) 783-447404-01-2025 Progress note [facility] Medical Records Department [facility] [address] [place] [address] Progress Note - Hospitalist 09/05/24 0814 MR#: [id number] Acct: [id number] Name: EDUARD RUSSELL Rep #:[id number] : 1945 79 From: Ty Cunningham MD PCP: Dr. Thiago Morgan MD Status:ADM IN Location: [place] [address] Reason for Visit Reason for Visit: Diagnoses Chronic obstructive pulmonary disease with (acute) exacerbation (09/03/24) Subjective Subjective Patient seen still remains on supplemental oxygen currently on 3 L flow per minute echo demonstrated EF of 60%. Objective Data Objective Data Vital Signs: Vital Signs Temp Pulse Resp BP Pulse Ox O2 Del Method O2 Flow Rate 98 F 93 18 129/75 H 92 Nasal Cannula 3 09/05/24 02:00 09/05/24 03:58 09/05/24 03:58 09/05/24 02:00 09/05/24 03:59 09/05/24 03:59 09/05/24 03:59 Oxygen Flow Rate (L/min) 3 Oxygen Delivery Method Nasal Cannula Weight: 97.5 kg Body Mass Index (BMI) 28.5 Intake & Output: Intake and Output for Last 24 Hours 09/03/24 09/04/24 09/05/24 23:59 23:59 23:59 Intake Total 2100 / 2460 480 / 480 Output Total 1500 / 2500 1600 / 1600 Balance 600 / -40 -1120 / -1120 Lab / Micro Data 09/05/24 05:28 09/05/24 05:28 Labs: Laboratory Results - last 24 hr 09/05/24 05:28: WBC 12.3 H, RBC 4.96, Hgb 14.2, Hct 45.0, MCV 90.7, MCH 28.6, MCHC 31.6 L, RDW Std Deviation 44.0 H, RDW Coeff of Carole 13.3, Plt Count 309, MPV 10.2, Immature Gran % (Auto) 0.600, Neut% (Auto) 87.2 H, Lymph % (Auto) 5.2 L, Cache % (Auto) 6.7, Eos % (Auto) 0.1, Baso % (Auto) 0.2, Absolute Neuts (auto) 10.7 H, Absolute Lymphs (auto) 0.64 L, Nucleated RBC % 0, Sodium 138, Potassium 4.6, Chloride 96 L, Carbon Dioxide 32.2 H, Anion Gap 10, BUN 17, Creatinine 0.66L, Estim Creat Clear Calc 95.09, Est GFR (MDRD) Non-Af 97, BUN/Creatinine Ratio 25.9 H, Glucose 120 H, Calcium 9.3, Phosphorus 3.7, Magnesium 2.2, [id number], Cholesterol 178, LDL Cholesterol, Calc 109, VLDL Cholesterol 11, HDL Cholesterol 58, Cholesterol/HDL Ratio 3.06 Micro: Microbiology 09/03/24 17:10 Mucosa - Nasopharyngeal Respiratory Panel (PCR) - Final 09/03/24 17:10 Mucosa - Nasopharyngeal SARS-CoV-2, Influenza & RSV (PCR) - Final Radiography Diagnostic Testing: Radiology Impression Echocardiogram 09/03/24 16:08 Interpretation Summary Normal LV size. Left ventricular systolic function is normal. The left ventricular ejection fraction is 60 %. Contrast injection was performed. Ordering Physician: Vibha Matias Referring Physician: THIAGO MORGAN Performed By: Mariajose Cardozo RDCS Physical Exam Narrative GENERAL: cooperative HEENT: Atraumatic; normocephalic EYES; Anicteric, Normal Conjunctiva NECK; supple, normal thyroid, RESPIRATORY: Diminished to auscultation CARDIOVASCULAR: Regular S1 S2, GI: soft, normoactive bowel sounds, : No Renal angle tenderness; EXTREMITIES: No edema, no clubbing, MUSCULOSKELETAL: no muscle wasting NEURO: Awake; no lateralizing signs. SKIN: No Rash PSYCH; Flat affect Assessment & Plan Assessment/Plan (1) COPD exacerbation: PLAN: Plan Patient is a 79-year-old gentleman admitted with progressive shortness of breathdiagnosed with COPDwith acute exacerbation. 1. Acute hypoxia ? Due to combination of CHF and COPD with acute exacerbation. CT of the chest demonstrated Moderatebilateral pleural effusions with compressive atelectasis in the bilateral lower lobes. Can not exclude developing infiltrate or superimposed neoplasm. Mild emphysematous changes primarily in the upper lobes. Mild coronary artery calcification. Placed on supplemental oxygen admitted to a monitored bed for subsequent management ? 09/05/2024 ; patient remains on supplemental oxygen requesting to be discharged plan is for patientto undergo 6-minute oxygen requirement assessment prior to making a decision regarding disposition 2. COPD with acute exacerbation ? Admitted to monitored bed managed with systemic steroid, bronchodilator treatment as well as antibiotic therapy. Patient was placed on supplemental oxygen titrated to keep saturation greater than 90 3. Acute congestive heart failure ? CT demonstrated moderate bilateral pleural effusion. Patient started on diuretic therapy in addition to strict input and output, daily weight, fluid restriction as well as diuretic therapy with furosemide echo ordered for EF assessment ?09/05/2024; patient responded to diuretic therapy. 2D echo obtained did show ; Normal LV size. Left ventricular systolic function is normal. The left ventricular ejection fraction is 60 %. Patient is in negative fluid balance diddecrease dose of diuretic therapy 4. Moderate bilateral pleural effusion ? Secondary to acute congestive heart failure patient started on furosemide do expect response to therapy 5. Hypothyroidism ? Patient is on methimazole 6. Tobacco dependence ? Counseled on cessation, offered nicotine patch for tobacco cravings 7. DVT prophylaxis ? On enoxaparin Time spent in the patient's overall evaluation,decision-making process, review of diagnostic data, adjustment of management, discussion with other providers, nursing nursing and ancillary staff involved in patient's care documentation, 38 Minutes Charges/Coding Visit Charges Inpatient E&M: 79536 Subs Hosp L2 09/05/24 1007 Cosigner Signature (if applicable): CC: ~ Signed [facility]03-31-2025 Progress note Author Ty Cunningham [facility] Note Date/Time September 04, 2024 11: 53am [facility] Medical Records Department [address] [place] [address] Progress Note - Hospitalist 09/04/24 1141 MR#: [id number] Acct: [id number] Name: EDUARD RUSSELL Rep #:[id number] : 1945 79 From: Ty Cunningham MD PCP: Dr. Thiago Morgan MD Status:ADM IN Location: [place] [address] Reason for Visit Reason for Visit: Diagnoses Chronic obstructive pulmonary disease with (acute) exacerbation (09/03/24) Objective Data Objective Data Vital Signs: Vital Signs Temp Pulse Resp BP Pulse Ox O2 Del Method O2 Flow Rate 97.9 F 99 18 120/64 93 Nasal Cannula 3 09/04/24 10:54 09/04/24 10:54 09/04/24 10:54 09/04/24 10:54 09/04/24 10:54 09/04/24 10:54 09/04/24 10:54 Oxygen Flow Rate (L/min) 3 Oxygen Delivery Method Nasal Cannula Weight: 97.3 kg Body Mass Index (BMI) 28.4 Intake & Output: Intake and Output for Last 24 Hours 09/02/24 09/03/24 09/04/24 23:59 23:59 23:59 Intake Total 1100 / 1100 Output Total 900 / 900 Balance 200 / 200 Lab / Micro Data 09/04/24 06:46 09/04/24 06:46 Labs: Laboratory Results - last 24 hr 09/03/24 12:38: Troponin T High Sens 12, NT pro BNP II 267 09/03/24 12:40: WBC 9.6, RBC 5.02, Hgb 14.5, Hct 46.0, MCV 91.6, MCH 28.9, MCHC 31.5 L, RDW Std Deviation 45.1 H, RDW Coeff of Carole 13.4, Plt Count 274, MPV 9.8,Immature Gran % (Auto) 0.400, Neut % (Auto) 78.1 H, Lymph % (Auto) 9.5 L, Cache %(Auto) 7.5, Eos % (Auto) 3.8, Baso % (Auto) 0.7, Absolute Neuts (auto) 7.5, Absolute Lymphs (auto) 0.91, Nucleated RBC % 0, Sodium 139, Potassium 4.4, Chloride 99, Carbon Dioxide 30.9, Anion Gap 9, BUN 8, Creatinine 0.65 L, Estim Creat Clear Calc 95.10, Est GFR (MDRD) Non-Af 97, BUN/Creatinine Ratio 13.1, Glucose 103 H, Calcium 9.1 09/04/24 06:46: WBC 8.5, RBC 5.03, Hgb 14.2, Hct 45.7, MCV 90.9, MCH 28.2, MCHC 31.1 L, RDW Std Deviation 43.8, RDW Coeff of Carole 13.2, Plt Count 305, MPV 10.0, Immature Gran % (Auto) 0.600, Neut % (Auto) 88.7 H, Lymph % (Auto) 6.4 L, Cache %(Auto) 4.2, Eos % (Auto) 0.0, Baso % (Auto) 0.1, Absolute Neuts (auto) 7.6, Absolute Lymphs (auto) 0.55 L, Nucleated RBC % 0, Sodium 138, Potassium 4.7, Chloride 100, Carbon Dioxide 28.0, Anion Gap 9, BUN 9, Creatinine 0.54 L, Estim Creat Clear Calc 95.00, Est GFR (MDRD) Non-Af 103, BUN/Creatinine Ratio 16.2, Glucose 130 H, Calcium 9.2, TSH 0.654, Free T4 1.10, Free T3 pg/dL 2.0 L Micro: Microbiology 09/03/24 17:10 Mucosa - Nasopharyngeal Respiratory Panel (PCR) - Final 09/03/24 17:10 Mucosa - Nasopharyngeal SARS-CoV-2, Influenza & RSV (PCR) - Final ABG Data ABG results: ABG 09/03/24 14:11 Specimen Type GABRIEL Sample Site Not entered O2 % 2.0 VBG pH 7.35 VBG pO2 46 H VBG HCO3 36 H VBG Total CO2 38 H VBG O2 Sat (Calc) 77 H VBG Base Excess 10 H POC Mix VBG pCO2 Pt Tmp 65.6 H O2 Delivery Device Cannula Radiography Diagnostic Testing: Radiology Impression Chest X-Ray 09/03/24 13:24 IMPRESSION: Moderate bilateral pleural effusions. Reading Location: [facility] Chest CT 09/03/24 16:08 IMPRESSION: Moderate bilateral pleural effusions with compressive atelectasis in the bilateral lower lobes. Can not exclude developing infiltrate or superimposed neoplasm. Mild emphysematous changes primarily in the upper lobes. Mild coronary artery calcification. Other nonacute findings detailed above. [facility] Physical Exam Narrative General: Alert, oriented, no apparent distress HEENT: Atraumatic, normocephalic Eyes: Anicteric, normal conjunctiva, extraocular movements grossly intact Neck: Supple Respiratory: Fairly normal respiratory effort but does have diffuse expiratory wheezes and somewhat dull at the bases Cardiovascular: Regular rate and rhythm GI: Soft, nontender, nondistended Extremities: No edema Musculoskeletal: Moving all extremities Neuro: No overt focal neurological deficits Skin: No rashes appreciated Psych: Cooperative Assessment & Plan Assessment/Plan (1) COPD exacerbation: PLAN: Plan Patient is a 79-year-old gentleman admitted with progressive shortness of breathdiagnosed with COPD with acute exacerbation. 1. Acute hypoxia ? Due to combination of CHF and COPD with acute exacerbation. CT of the chest demonstrated Moderate bilateral pleural effusions with compressive atelectasis in the bilateral lower lobes. Can not exclude developing infiltrate or superimposed neoplasm. Mild emphysematous changes primarily in the upper lobes. Mild coronary artery calcification. Placed on supplemental oxygen admitted to a monitored bed for subsequent management 2. COPD with acute exacerbation ? Admitted to monitored bed managed with systemic steroid, bronchodilator treatment as well as antibiotic therapy. Patient was placed on supplemental oxygen titrated to keep saturation greater than 90 3. Acute congestive heart failure ? CT demonstrated moderate bilateral pleural effusion. Patient started on diuretic therapy in addition to strict input and output, daily weight, fluid restriction as well as diuretic therapy with furosemide echo ordered for EF assessment 4. Moderate bilateral pleural effusion ? Secondary to acute congestive heart failure patient started on furosemide do expect response to therapy 5. Hypothyroidism ? Patient is on methimazole 6. Tobacco dependence ? Counseled on cessation, offered nicotine patch for tobacco cravings 7. DVT prophylaxis ? On enoxaparin Time spent in the patient's overall evaluation,decision-making process, review of diagnostic data, adjustment of management, discussion with other providers, nursing nursing and ancillary staff involved in patient's care documentation, 50 Minutes Charges/Coding Visit Charges Inpatient E&M: 37189 Subs Hosp L3 09/04/24 1153 <Electronically signed by Ty Cunningham MD> Cosigner Signature (if applicable): CC: ~ Signed [facility] Work Phone: 1(515) 373-571603-31-2025 Progress note [facility] Medical Records Department [address] [place] [address] Progress Note - Hospitalist 09/04/24 1141 MR#: [id number] Acct: [id number] Name: EDUARD RUSSELL Rep #:[id number] : 1945 79 From: Ty Cunningham MD PCP: Dr. Thiago Morgan MD Status:ADM IN Location: [place] [address] Reason for Visit Reason for Visit: Diagnoses Chronic obstructive pulmonary disease with (acute) exacerbation (09/03/24) Objective Data Objective Data Vital Signs: Vital Signs Temp Pulse Resp BP Pulse Ox O2 Del Method O2 Flow Rate 97.9 F 99 18 120/64 93 Nasal Cannula 3 09/04/24 10:54 09/04/24 10:54 09/04/24 10:54 09/04/24 10:54 09/04/24 10:54 09/04/24 10:54 09/04/24 10:54 Oxygen Flow Rate (L/min) 3 Oxygen Delivery Method Nasal Cannula Weight: 97.3 kg Body Mass Index (BMI) 28.4 Intake & Output: Intake and Output for Last 24 Hours 09/02/24 09/03/24 09/04/24 23:59 23:59 23:59 Intake Total 1100 / 1100 Output Total 900 / 900 Balance 200 / 200 Lab / Micro Data 09/04/24 06:46 09/04/24 06:46 Labs: Laboratory Results - last 24 hr 09/03/24 12:38: Troponin T High Sens 12, NT pro BNP II 267 09/03/24 12:40: WBC 9.6, RBC 5.02, Hgb 14.5, Hct 46.0, MCV 91.6, MCH 28.9, MCHC 31.5 L, RDW Std Deviation 45.1 H, RDW Coeff of Carole 13.4, Plt Count 274, MPV 9.8,Immature Gran % (Auto) 0.400, Neut % (Auto) 78.1 H, Lymph % (Auto) 9.5 L, Cache %(Auto) 7.5, Eos % (Auto) 3.8, Baso % (Auto) 0.7, Absolute Neuts (auto) 7.5, Absolute Lymphs (auto) 0.91, Nucleated RBC % 0, Sodium 139, Potassium 4.4, [id number], Carbon Dioxide 30.9, Anion Gap 9, BUN 8, Creatinine 0.65 L, Estim Creat Clear Calc 95.10, Est GFR (MDRD) Non-Af 97, BUN/Creatinine Ratio 13.1, Glucose 103 H, Calcium 9.1 09/04/24 06:46: WBC 8.5, RBC 5.03, Hgb 14.2, Hct 45.7, MCV 90.9, MCH 28.2, MCHC 31.1 L, RDW Std Deviation 43.8, RDW Coeff of Carole 13.2, Plt Count 305, MPV 10.0, Immature Gran % (Auto) 0.600, Neut % (Auto) 88.7 H, Lymph % (Auto) 6.4 L, Cache %(Auto) 4.2, Eos % (Auto) 0.0, Baso % (Auto) 0.1, Absolute Neuts (auto) 7.6, Absolute Lymphs (auto) 0.55 L, Nucleated RBC % 0, Sodium 138, Potassium 4.7, Chloride 100, Carbon Dioxide 28.0, Anion Gap 9, BUN 9, Creatinine 0.54 L, Estim Creat Clear Calc 95.00, Est GFR (MDRD) Non-Af 103, BUN/Creatinine Ratio 16.2, Glucose 130 H, Calcium 9.2, TSH 0.654, Free T4 1.10, Free T3 pg/dL 2.0 L Micro: Microbiology 09/03/24 17:10 Mucosa - Nasopharyngeal Respiratory Panel (PCR) - Final 09/03/24 17:10 Mucosa - Nasopharyngeal SARS-CoV-2, Influenza & RSV (PCR) - Final ABG Data ABG results: ABG 09/03/24 14:11 Specimen Type GABRIEL Sample Site Not entered O2 % 2.0 VBG pH 7.35 VBG pO2 46 H VBG HCO3 36 H VBG Total CO2 38 H VBG O2 Sat (Calc) 77 H VBG Base Excess 10 H POC Mix VBG pCO2 Pt Tmp 65.6 H O2 Delivery Device Cannula Radiography Diagnostic Testing: Radiology Impression Chest X-Ray 09/03/24 13:24 IMPRESSION: Moderate bilateral pleural effusions. Reading Location: [facility] Chest CT 09/03/24 16:08 IMPRESSION: Moderate bilateral pleural effusions with compressive atelectasis in the bilateral lower lobes. Cannot exclude developing infiltrate or superimposed neoplasm. Mild emphysematous changes primarily in the upper lobes. Mild coronary artery calcification. Other nonacute findings detailed above. Reading Location: [facility] Physical Exam Narrative General: Alert, oriented, no apparent distress HEENT: Atraumatic, normocephalic Eyes: Anicteric, normal conjunctiva, extraocular movements grossly intact Neck: Supple Respiratory: Fairly normal respiratory effort but does have diffuse expiratory wheezes and somewhatdull at the bases Cardiovascular: Regular rate and rhythm GI: Soft, nontender, nondistended Extremities: No edema Musculoskeletal: Moving all extremities Neuro: No overt focal neurological deficits Skin: No rashes appreciated Psych: Cooperative Assessment & Plan Assessment/Plan (1) COPD exacerbation: PLAN: Plan Patient is a 79-year-old gentleman admitted with progressive shortness of breathdiagnosed with COPDwith acute exacerbation. 1. Acute hypoxia ? Due to combination of CHF and COPD with acute exacerbation. CT of the chest demonstrated Moderatebilateral pleural effusions with compressive atelectasis in the bilateral lower lobes. Can not exclude developing infiltrate or superimposed neoplasm. Mild emphysematous changes primarily in the upper lobes. Mild coronary artery calcification. Placed on supplemental oxygen admitted to a monitored bed for subsequent management 2. COPD with acute exacerbation ? Admitted to monitored bed managed with systemic steroid, bronchodilator treatment as well as antibiotic therapy. Patient was placed on supplemental oxygen titrated to keep saturation greater than 90 3. Acute congestive heart failure ? CT demonstrated moderate bilateral pleural effusion. Patient started on diuretic therapy in addition to strict input and output, daily weight, fluid restriction as well as diuretic therapy with furosemide echo ordered for EF assessment 4. Moderate bilateral pleural effusion ? Secondary to acute congestive heart failure patient started on furosemide do expect response to therapy 5. Hypothyroidism ? Patient is on methimazole 6. Tobacco dependence ? Counseled on cessation, offered nicotine patch for tobacco cravings 7. DVT prophylaxis ? On enoxaparin Time spent in the patient's overall evaluation,decision-making process, review of diagnostic data, adjustment of management, discussion with other providers, nursing nursing and ancillary staff involved in patient's care documentation, 50 Minutes Charges/Coding Visit Charges Inpatient E&M: 62363 [facility] Hosp L3 09/04/24 1153 Cosigner Signature (if applicable): CC: ~ Signed [facility]03-30-2025 Discharge summary Author Mary Sterling [facility] Note Date/Time September 03, 2024 6:5 0pm [facility] Medical Records Department [address] [place] [address] Emergency Department Summary 09/03/24 MR#: [id number] Acct: [id number] Name: EDUARD RUSSELL Rep #:[id number] : 1945 79 From: Mary STEWART PCP: Dr. Thiago Morgan MD Status:ADM IN Location: [address] <TERRY Franz - Last Filed: 09/03/24 16:11> History of Present Illness Chief Complaint: Shortness of Breath Narrative Narrative: Patient presenting due to progressively worsening shortness of breath with exertion he has had over the past month. He does have a history of COPD, he stopped smoking last week. He reports occasional wheezing. He has had a productive cough with hallman-colored sputum over the past month that is not worsening. He does not use supplemental O2 at home. He does not follow-up with pulmonology. He denies fevers, chills, chest pain, orthopnea, and leg swelling. He denies any cardiac history. He has a PMH of hypothyroidism, COPD. PE Risk Factors: Negative for Cancer, Prior DVT or PE, Recent immobilization, Recent surgery or Recent travel PFSH <TERRY Franz - Last Filed: 09/03/24 16:11> [facility] Medical History Essential tremor Cataract COPD (chronic obstructive pulmonary disease) Thyroid disease Asthma Home Medications ?Medication ?Instructions ?Recorded ?Last Taken ?Type methimazole 5 mg tablet 5 mg PO QDAY #90 tabs 09/03/24 Rx fluticasone furoate 100 1 inh inhalation DAILY 09/0309/02/24 History mcg-vilanterol 25 mcg/dose inhalation powder (Breo Ellipta) Allergy/AdvReac Type Severity Reaction Status Date / Time shellfish derived AdvReac Mild Nausea/Vom/ Verified 09/03/24 12:32 Diarrhea Family History Mother Colon cancer Sister Colon cancer Surgical History H/O cataract extraction H/O shoulder surgery H/O sinus surgery Social History adopted: No household members: spouse number of children: 2 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: Yes (1) pets and animals: dog(s) Smoking Status: Current every day smoker tobacco type: cigarettes Tobacco: How many years used: 40 quit status: considering quitting alcohol intake: never substance use type: does not use caffeine: Yes (1) Type: coffee frequency: does not exercise seatbelt use: always do you feel safe at home: Yes ROS <TERRY Franz - Last Filed: 09/03/24 16:11> ROS ED Constitutional Constitutional ED: Denies chills or fever(s) Cardiovascular Cardiovascular: Denies chest pain, orthopnea or palpitations Respiratory/Chest Respiratory/Chest: Reports cough, dyspnea on exertion, sputum and wheezing; Denies orthopnea Gastrointestinal Gastrointestinal: Denies abdominal pain, nausea or vomiting Musculoskeletal Musculoskeletal: Denies arthralgias or myalgias Integumentary Denies rash Neurologic Neurologic: Denies weakness EXAM <TERRY Franz - Last Filed: 09/03/24 16:11> Physical Exam Const Vital Signs: 09/03/24 12:32 09/03/24 12:35 09/03/24 12:37 Temperature 98.1 F Temperature Source Temporal Pulse Rate 82 Respiratory Rate 16 Respiratory Effort Respiratory Depth Respiratory Pattern Blood Pressure 152/75 H Blood Pressure Mean 100 Pulse Ox 85 95 89 Oxygen Delivery Method Room Air Nasal Cannula Room Air Oxygen Flow Rate (L/min) 2 09/03/24 12:37 09/03/24 12:50 09/03/24 13:20 Temperature 98.1 F Temperature Source Oral Pulse Rate 82 Respiratory Rate 16 16 Respiratory Effort Normal Non-Labored Respiratory Depth Normal Respiratory Pattern Normal Blood Pressure 152/75 H Blood Pressure Mean 100 Pulse Ox 89 95 Oxygen Delivery Method Room Air Nasal Cannula Room Air Oxygen Flow Rate (L/min) 2 09/03/24 13:35 09/03/24 14:11 09/03/24 15:48 Temperature 98.3 F Temperature Source Pulse Rate 90 90 94 Respiratory Rate 20 H 24 H 26 H Respiratory Effort Respiratory Depth Respiratory Pattern Blood Pressure 133/79 H 151/78 H Blood Pressure Mean 97 102 Pulse Ox 95 91 Oxygen Delivery Method Nasal Cannula Oxygen Flow Rate (L/min) 2 Positive well nourished, well developed and no apparent distress General Appearance ED: well developed HEENT Reports normocephalic and head/scalp atraumatic Mouth ED: Yes moist mucous membranes normal Eyes PERRL and EOMs intact bilaterally Neck full ROM and supple Chest Wall inspection of chest normal Resp normal respiratory effort Resp Narrative: Expiratory wheezes to the bilateral lungs Cardio regular rate and regular rhythm GI soft to palpation, non-tender, non-distended and no masses Back/Spine normal ROM and normal to inspection Extremity normal to inspection and full ROM Neuro oriented x3, CN's II-XII intact bilaterally, moves all extremities, no focal motor deficits and no sensory deficits noted Sensorium / Orientation: awake and alert Psych mental status grossly normal and thought process normal Skin no rashes or lesions noted and no wounds <Dr. Dano Shea DO - Last Filed: 09/03/24 18:50> Physical Exam Const Vital Signs: 09/03/24 12:32 09/03/24 12:35 09/03/24 12:37 Temperature 98.1 F Temperature Source Temporal Pulse Rate 82 Respiratory Rate 16 Respiratory Effort Respiratory Depth Respiratory Pattern Blood Pressure 152/75 H Blood Pressure Mean 100 Pulse Ox 85 95 89 Oxygen Delivery Method Room Air Nasal Cannula Room Air Oxygen Flow Rate (L/min) 2 09/03/24 12:37 09/03/24 12:50 09/03/24 13:20 Temperature 98.1 F Temperature Source Oral Pulse Rate 82 Respiratory Rate 16 16 Respiratory Effort Normal Non-Labored Respiratory Depth Normal Respiratory Pattern Normal Blood Pressure 152/75 H Blood Pressure Mean 100 Pulse Ox 89 95 Oxygen Delivery Method Room Air Nasal Cannula Room Air Oxygen Flow Rate (L/min) 2 09/03/24 13:35 09/03/24 14:11 09/03/24 15:48 Temperature 98.3 F Temperature Source Pulse Rate 90 90 94 Respiratory Rate 20 H 24 H 26 H Respiratory Effort Respiratory Depth Respiratory Pattern Blood Pressure 133/79 H 151/78 H Blood Pressure Mean 97 102 Pulse Ox 95 91 Oxygen Delivery Method Nasal Cannula Oxygen Flow Rate (L/min) 2 MDM <TERRY Franz - Last Filed: 09/03/24 16:11> [facility] MDM Narrative Medical decision making narrative: Patient presenting today due to shortness of breath with exertion that has been worsening over the past month. He has a history of COPD, he has had intermittent wheezing, he does have wheezing on exam. His exam is consistent with a COPD exacerbation. Low suspicion for PE at this time. He will be given IV Solu-Medrol and albuterol and DuoNeb breathing treatments. Patient was hypoxic on initial arrival at 85%, he was placed on 2 L supplemental O2. He wastaken back off of the oxygen and did desaturate again into the upper 80s. Labs were obtained, his CBC, BMP, troponin, and BNP are unremarkable. Chest x-ray shows moderate bilateral pleural effusions. No infiltrate. He denies any history of CHF. Given his hypoxia and not having supplemental O2 at home, I will speak with the hospitalist for admission. VBG obtained and does show CO2 retention but he is stable at this time not requiring BiPAP. He will be admitted to the hospital in stable condition. ED attending note: I evaluated the patient in conjunction with the ARMAAN. I agree with his/her statements and above findings. I have personally performed a face to face assessment of the patient and have reviewed the ARMAAN Note. I performed a substantive portion of the visit including all aspects of the following. I personally saw the patient performed chart review, physical exam, reviewed labs,imaging (if obtained), and formulated a treatment and management plan. EKG with normal sinus rhythm rate of 89, prolonged GA interval, first-degree AV block, left ax deviation, QTc 442, no STEMI, no sign of a atrial fibrillation This note was generated with Solaic[employer] dictation software. It may contain incorrectwords, spelling, and punctuation that were not noted in review of the chart prior to signing. Lab Data Labs: Laboratory Results - last 24 hr 09/03/24 09/03/24 12:38 12:40 WBC 9.6 RBC 5.02 Hgb 14.5 Hct 46.0 MCV 91.6 MCH 28.9 MCHC 31.5 L RDW Std Deviation 45.1 H RDW Coeff of Carole 13.4 Plt Count 274 MPV 9.8 Immature Gran % (Auto) 0.400 Neut % (Auto) 78.1 H Lymph % (Auto) 9.5 L Cache % (Auto) 7.5 Eos % (Auto) 3.8 Baso % (Auto) 0.7 Absolute Neuts (auto) 7.5 Absolute Lymphs (auto) 0.91 Nucleated RBC % 0 Sodium 139 Potassium 4.4 Chloride 99 Carbon Dioxide 30.9 Anion Gap 9 BUN 8 Creatinine 0.65 L Estim Creat Clear Calc 95.10 Est GFR (MDRD) Non-Af 97 BUN/Creatinine Ratio 13.1 Glucose 103 H Calcium 9.1 Troponin T High Sens 12 NT pro BNP II 267 ABG Data ABG results: ABG 09/03/24 14:11 Specimen Type GABRIEL Sample Site Not entered O2 % 2.0 VBG pH 7.35 VBG pO2 46 H VBG HCO3 36 H VBG Total CO2 38 H VBG O2 Sat (Calc) 77 H VBG Base Excess 10 H POC Mix VBG pCO2 Pt Tmp 65.6 H O2 Delivery Device Cannula Radiography X-Ray: Read by ED Physician Diagnostic Testing: Clinical Impression(s) from Imaging Studies Chest X-Ray 09/03/24 13:24 IMPRESSION: Moderate bilateral pleural effusions. Reading Location: [id number] <Dr. Dano Shea, DO - Last Filed: 09/03/24 18:50> [facility] MDM Narrative Medical decision making narrative: Patient presenting today due to shortness of breath with exertion that has been worsening over the past month. He has a history of COPD, he has had intermittent wheezing, he does have wheezing on exam. His exam is consistent with a COPD exacerbation. Low suspicion for PE at this time. He will be given IV Solu-Medrol and albuterol and DuoNeb breathing treatments. Patient was hypoxic on initial arrival at 85%, he was placed on 2 L supplemental O2. He wastaken back off of the oxygen and did desaturate again into the upper 80s. Labs were obtained, his CBC, BMP, troponin, and BNP are unremarkable. Chest x-ray shows moderate bilateral pleural effusions. No infiltrate. He denies any history of CHF. Given his hypoxia and not having supplemental O2 at home, I will speak with the hospitalist for admission. VBG obtained and does show CO2 retention but he is stable at this time not requiring BiPAP. He will be admitted to the hospital in stable condition. ED attending note: I evaluated the patient in conjunction with the ARMAAN. I agree with his/her statements and above findings. I have personally performed a face to face assessment of the patient and have reviewed the ARMAAN Note. I performed a substantive portion of the visit including all aspects of the following. I personally saw the patient performed chart review, physical exam, reviewed labs,imaging (if obtained), and formulated a treatment and management plan. EKG with normal sinus rhythm rate of 89, prolonged GA interval, first-degree AV block, left ax deviation, QTc 442, no STEMI, no sign of a atrial fibrillation Patient chest x-ray was read reviewed personally myself showed no evidence of obvious pneumonia. Radiologist noted bilateral pneumonia. This note was generated with Solaicx dictation software. It may contain incorrectwords, spelling, and punctuation that were not noted in review of the chart prior to signing. Lab Data Attestation: I reviewed the patient's lab results. Labs: Laboratory Results - last 24 hr 09/03/24 09/03/24 12:38 12:40 WBC 9.6 RBC 5.02 Hgb 14.5 Hct 46.0 MCV 91.6 MCH 28.9 MCHC 31.5 L RDW Std Deviation 45.1 H RDW Coeff of Carole 13.4 Plt Count 274 MPV 9.8 Immature Gran % (Auto) 0.400 Neut % (Auto) 78.1 H Lymph % (Auto) 9.5 L Cache % (Auto) 7.5 Eos % (Auto) 3.8 Baso % (Auto) 0.7 Absolute Neuts (auto) 7.5 Absolute Lymphs (auto) 0.91 Nucleated RBC % 0 Sodium 139 Potassium 4.4 Chloride 99 Carbon Dioxide 30.9 Anion Gap 9 BUN 8 Creatinine 0.65 L Estim Creat Clear Calc 95.10 Est GFR (MDRD) Non-Af 97 BUN/Creatinine Ratio 13.1 Glucose 103 H Calcium 9.1 Troponin T High Sens 12 NT pro BNP II 267 ABG Data ABG results: ABG 09/03/24 14:11 Specimen Type GABRIEL Sample Site Not entered O2 % 2.0 VBG pH 7.35 VBG pO2 46 H VBG HCO3 36 H VBG Total CO2 38 H VBG O2 Sat (Calc) 77 H VBG Base Excess 10 H POC Mix VBG pCO2 Pt Tmp 65.6 H O2 Delivery Device Cannula Radiography Diagnostic Testing: Clinical Impression(s) from Imaging Studies Chest X-Ray 09/03/24 13:24 IMPRESSION: Moderate bilateral pleural effusions. Reading Location: [facility] Discharge Plan Dx/Rx/DC Orders Clinical Impression: Hypoxia, Shortness of breath, COPD exacerbation, Pleural effusion, bilateral Disposition Disposition: Acute Care Hospital [facility] Discharge Date/Time: 09/03/24 15:56 What to do if you have Problems For any increased pain, shortness of breath, bleeding, nausea or vomiting, chestpain, or any unexpected problems, contact your Primary Care Provider. Call [facility] ([phone]) or report to the closest Emergency Room. Call 911 if necessary. 09/03/24 1611 <Electronically signed by Mary STEWART> Cosigner Signature (if applicable): 09/03/24 1850 <Electronically signed by Dano Shea DO> CC: Dr. Thiago Morgan MD ~ Signed [facility] Work Phone: [phone]) 517-311403-30-2025 History and physical note Author Vibha Matias [facility] Note Date/Time September 03, 2024 6:2 3pm [facility] Medical Records Department [address] [place] [id number] H&P Exam - Hospitalist 09/03/24 1549 MR#: [id number] Acct: [id number] Name: EDUARD RUSSELL Rep #:[id number] : 1945 79 From: Vibha Matias MD PCP: Dr. Thiago Morgan MD Status:ADM IN Location: [facility] [id number] HPI - General General Date of Admission: 09/03/24 Date of Service: 09/03/24 Chief Complaint: Shortness of breath and hypoxia HPI Narrative EDUARD RUSSELL, is a 79-year-old male history of COPD and hyperthyroidism who presented to [facility] ED 09/03/2024 with increasing shortness of breath on exertion over the past month and occasional wheezing. Also has a productive cough with hallman sputum over the past month which has not necessarily worsened. On arrival patient afebrile and initially patient 85% on room air on arrival and was placed on 2 L of O2 and given IV Solu-Medrol and DuoNebs. Chest x-ray with moderate bilateral pleural effusions with no acute infiltrate. Patient's VBG in the ED with bicarb of 36 and total CO2 of 38, troponin 12, BNP 267. Due to patient's hypoxia hospitalist contacted for admission for COPD exacerbation. Patient evaluated with family members at bedside, patient has COPD and follows with his primary care physician for management of his COPD, reports that for the past week he has had increased shortness of breath and cough with hallman sputum and had a "very bad night last night" per family so today they checked his oxygen and it was low to mid 80s andnever went above 90s prompting them to bring him to the ED. Patient reports breathing is about the same at this time, no fevers, no chest pain, no weight gain, no increased swelling in lower extremities, no bowel or bladder complaints. No history of heart failure [facility] Medical History Essential tremor Cataract COPD (chronic obstructive pulmonary disease) Thyroid disease Asthma Home Medications ?Medication ?Instructions ?Recorded ?Last Taken ?Type methimazole 5 mg tablet 5 mg PO QDAY #90 tabs 09/03/24 Rx fluticasone furoate 100 1 inh inhalation DAILY 09/0309/02/24 History mcg-vilanterol 25 mcg/dose inhalation powder (Breo Ellipta) Allergy/AdvReac Type Severity Reaction Status Date / Time shellfish derived AdvReac Mild Nausea/Vom/ Verified 09/03/24 12:32 Diarrhea Family History Mother Colon cancer Sister Colon cancer Surgical History H/O cataract extraction H/O shoulder surgery H/O sinus surgery Social History adopted: No household members: spouse number of children: 2 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: Yes (1) pets and animals: dog(s) Smoking Status: Current every day smoker tobacco type: cigarettes Tobacco: How many years used: 40 quit status: considering quitting alcohol intake: never substance use type: does not use caffeine: Yes (1) Type: coffee frequency: does not exercise seatbelt use: always do you feel safe at home: Yes ROS ROS Narrative General: Denies fever/chills HENT: Denies headache, denies stuffy nose, denies sore throat EYES: Denies changes in vision Resp: Productive cough with hallman sputum, increased shortness of breath and hypoxia for 1 month Cardiac: Denies chest pain GI: Denies abdominal pain, denies changes in bowel, denies nausea/vomiting : Denies changes in urination Extremity: Denies swelling MSK: Denies weakness Neuro: Denies any numbness/tingling Heme: Denies any bleeding or bruising Skin: Denies rashes Psychiatric: No complaints voiced Vital Signs Vital Signs Vital Signs: 09/03/24 12:32 09/03/24 12:35 09/03/24 12:37 Temperature 98.1 F Temperature Source Temporal Pulse Rate 82 Respiratory Rate 16 Respiratory Effort Respiratory Depth Respiratory Pattern Blood Pressure 152/75 H Blood Pressure Mean 100 Pulse Ox 85 95 89 Oxygen Delivery Method Room Air Nasal Cannula Room Air Oxygen Flow Rate (L/min) 2 09/03/24 12:37 09/03/24 12:50 09/03/24 13:20 Temperature 98.1 F Temperature Source Oral Pulse Rate 82 Respiratory Rate 16 16 Respiratory Effort Normal Non-Labored Respiratory Depth Normal Respiratory Pattern Normal Blood Pressure 152/75 H Blood Pressure Mean 100 Pulse Ox 89 95 Oxygen Delivery Method Room Air Nasal Cannula Room Air Oxygen Flow Rate (L/min) 2 09/03/24 13:35 09/03/24 14:11 Temperature Temperature Source Pulse Rate 90 90 Respiratory Rate 20 H 24 H Respiratory Effort Respiratory Depth Respiratory Pattern Blood Pressure 133/79 H Blood Pressure Mean 97 Pulse Ox 95 Oxygen Delivery Method Nasal Cannula Oxygen Flow Rate (L/min) 2 Weight Weight: 97.522 kg Body Mass Index (BMI) 28.3 Physical Exam Narrative General: Alert, oriented, no apparent distress HEENT: Atraumatic, normocephalic Eyes: Anicteric, normal conjunctiva, extraocular movements grossly intact Neck: Supple Respiratory: Fairly normal respiratory effort but does have diffuse expiratory wheezes and somewhat dull at the bases Cardiovascular: Regular rate and rhythm GI: Soft, nontender, nondistended Extremities: No edema Musculoskeletal: Moving all extremities Neuro: No overt focal neurological deficits Skin: No rashes appreciated Psych: Cooperative Results Lab / Micro Data 09/03/24 12:40 09/03/24 12:40 Labs: Laboratory Results - last 24 hr 09/03/24 12:38: Troponin T High Sens 12, NT pro BNP II 267 09/03/24 12:40: WBC 9.6, RBC 5.02, Hgb 14.5, Hct 46.0, MCV 91.6, MCH 28.9, MCHC 31.5 L, RDW Std Deviation 45.1 H, RDW Coeff of Carole 13.4, Plt Count 274, MPV 9.8,Immature Gran % (Auto) 0.400, Neut % (Auto) 78.1 H, Lymph % (Auto) 9.5 L, Cache %(Auto) 7.5, Eos % (Auto) 3.8, Baso % (Auto) 0.7, Absolute Neuts (auto) 7.5, Absolute Lymphs (auto) 0.91, Nucleated RBC % 0, Sodium 139, Potassium 4.4, Chloride 99, Carbon Dioxide 30.9, Anion Gap 9, BUN 8, Creatinine 0.65 L, Estim Creat Clear Calc 95.10, Est GFR (MDRD) Non-Af 97, BUN/Creatinine Ratio 13.1, Glucose 103 H, Calcium 9.1 ABG Data ABG results: ABG 09/03/24 14:11 Specimen Type GABRIEL Sample Site Not entered O2 % 2.0 VBG pH 7.35 VBG pO2 46 H VBG HCO3 36 H VBG Total CO2 38 H VBG O2 Sat (Calc) 77 H VBG Base Excess 10 H POC Mix VBG pCO2 Pt Tmp 65.6 H O2 Delivery Device Cannula Imaging Radiology Impression Chest X-Ray 09/03/24 13:24 IMPRESSION: Moderate bilateral pleural effusions. Reading Location: [facility] Assessment & Plan Assessment/Plan (1) COPD exacerbation: PLAN: Plan #Acute exacerbation of COPD -Admit to floor, continuous O2 monitoring -Chest x-ray: No acute infiltrate but notes bilateral pleural effusions -COVID negative, obtain respiratory panel, sputum culture if able -O2 in place, wean as tolerated -IV methylprednisone -Scheduled DuoNebs -Albuterol prn -Antibiotics: Azithromycin -Incentive spirometer -Mucinex # Abnormal chest x-ray -Chest x-ray reported out as bilateral pleural effusions, moderate, no recent chest x-rays for comparison, patient denies any history of heart failure and hasdenied any weight gain or swelling in lower extremities, no chest pain, troponinand BNP within normal limits -Will obtain CT and echocardiogram for better characterization as patient still 90% in the ED on 2 L and suspect that this is a component of his hypoxia on top of the COPD exacerbation -Will monitor daily weights and I's and O's -Heart healthy diet while awaiting further workup #Hx hyperthyroidism -Continue methimazole -TSH, free T4 and free T3 #DVT ppx: Lovenox subcu Charges/Coding Visit Charges Inpatient E&M: 21220 Init Hosp L2 09/03/24 1559 <Electronically signed by Vibha Matias MD> Cosigner Signature (if applicable): CC: Dr. Thiago Morgan MD; Dr. Vibha Matias MD~ Signed ADDENDUM by Dr. Vibha Matias MD on 09/03/[address] still pending but will change Lovenox to SCDs for DVT prophylaxis in the event patient will need something like a thoracentesis 09/03/24 182<Electronically signed by Vibha Matias MD> Cosigner Signature (if applicable): cc: Dr. Thiago Morgan MD; Dr. Vibha Matias MD ~* Signed [facility] Work Phone: 1(186) 749-861003-30-2025 Radiology Diagnostic study note [facility] Imaging Services [address] [place], [place] [address] Chest without Contrast MR#: [id number] Acct: [id number] Name: EDUARD RUSSELL Rep #: [id number] : 1945 M 79 From: Kristen Elder MD PCP: Dr. Thiago Morgan MD Status: ADM IN Study:Chest without Contrast Date of Exam: 09/03/24 Exam# [id number] Ordering Dr: Hal Matias MD PROCEDURE: CHEST WITHOUT CONTRAST 09/03/2024 REASON FOR EXAM: Abnormal chest x-ray with effusions. TECHNIQUE: Contiguous axial scans of 2.5 mm slice thicknesses. Sagittal and coronal reconstruction images wereobtained. One or more dose reduction techniques were used (e.g., automated exposure control, adjustment of mAand/or kv according to patient size, use of iterative reconstruction technique). RADIATION DOSE SUMMARY: CTDlvol: 17.21 mGy DLP: 718.09 mGycm COMPARISON: PA and lateral chest dated 09/03/2024. FINDINGS: Hardware: Unremarkable. Lymph nodes: Unremarkable. Heart and Vasculature: Normal heart size. No pericardial thickening or effusion. Severe atherosclerotic calcific disease in the aorta. No aneurysms. Coronary Artery Calcifications: Mild calcifications. Lungs and Airways: Airspace consolidation in the lower lobes with air bronchograms most likely compressive. Mild bilateral centrilobular emphysematous changes. Pleura: Moderate bilateral pleural effusions. Upper Abdomen: Unremarkable. Bones: Multilevel spondylosis. CT/Chest without Contrast IMPRESSION: Moderate bilateral pleural effusions with compressive atelectasis in the bilateral lower lobes. Cannot exclude developing infiltrate or superimposed neoplasm. Mild emphysematous changes primarily in the upper lobes. Mild coronary artery calcification. Other nonacute findings detailed above. Reading Location: [facility] CC: Dr. Thiago Morgan MD; Dr. Vibha Matias MD ~ It Architecture Consultant: Signed [facility]03-30-2025 Discharge summary [facility] Medical Records Department [address] [place] [id number] Emergency Department Summary 09/03/24 MR#: [id number] Acct: [id number] Name: EDUARD RUSSELL Rep #:[id number] : 1945 79 From: Mary STEWART PCP: Dr. Thiago Morgan MD Status:ADM IN Location: [facility] [id number] HPI History of Present Illness Chief Complaint: Shortness of Breath Narrative Narrative: Patient presenting due to progressively worsening shortness of breath with exertion he has had overthe past month. He does have a history of COPD, he stopped smoking last week. He reports occasionalwheezing. He has had a productive cough with hallman-colored sputum over the past month that is not wor sening. He does not use supplemental O2 at home. He does not follow-up with pulmonology. He denies fevers, chills, chest pain, orthopnea, and leg swelling. He denies any cardiac history. He has a PMHof hypothyroidism, COPD. PE Risk Factors: Negative for Cancer, Prior DVT or PE, Recent immobilization, Recent surgery or Recent travel [facility] Medical History Essential tremor Cataract COPD (chronic obstructive pulmonary disease) Thyroid disease Asthma Home Medications ?Medication ?Instructions ?Recorded ?Last Taken ?Type methimazole 5 mg tablet 5 mg PO QDAY #90 tabs 09/03/24 Rx fluticasone furoate 100 1 inh inhalation DAILY 09/0309/02/24 History mcg-vilanterol 25 mcg/dose inhalation powder (Breo Ellipta) Allergy/AdvReac Type Severity Reaction Status Date / Time shellfish derived AdvReac Mild Nausea/Vom/ Verified 09/03/24 12:32 Diarrhea Family History Mother Colon cancer Sister Colon cancer Surgical History H/O cataract extraction H/O shoulder surgery H/O sinus surgery Social History adopted: No household members: spouse number of children: 2 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: Yes (1) pets and animals: dog(s) Smoking Status: Current every day smoker tobacco type: cigarettes Tobacco: How many years used: 40 quit status: considering quitting alcohol intake: never substance use type: does not use caffeine: Yes (1) Type: coffee frequency: does not exercise seatbelt use: always do you feel safe at home: Yes ROS ROS ED Constitutional Constitutional ED: Denies chills or fever(s) Cardiovascular Cardiovascular: Denies chest pain, orthopnea or palpitations Respiratory/Chest Respiratory/Chest: Reports cough, dyspnea on exertion, sputum and wheezing; Denies orthopnea Gastrointestinal Gastrointestinal: Denies abdominal pain, nausea or vomiting Musculoskeletal Musculoskeletal: Denies arthralgias or myalgias Integumentary Denies rash Neurologic Neurologic: Denies weakness EXAM Physical Exam Const Vital Signs: 09/03/24 12:32 09/03/24 12:35 09/03/24 12:37 Temperature 98.1 F Temperature Source Temporal Pulse Rate 82 Respiratory Rate 16 Respiratory Effort Respiratory Depth Respiratory Pattern Blood Pressure 152/75 H Blood Pressure Mean 100 Pulse Ox 85 95 89 Oxygen Delivery Method Room Air Nasal Cannula Room Air Oxygen Flow Rate (L/min) 2 09/03/24 12:37 09/03/24 12:50 09/03/24 13:20 Temperature 98.1 F Temperature Source Oral Pulse Rate 82 Respiratory Rate 16 16 Respiratory Effort Normal Non-Labored Respiratory Depth Normal Respiratory Pattern Normal Blood Pressure 152/75 H Blood Pressure Mean 100 Pulse Ox 89 95 Oxygen Delivery Method Room Air Nasal Cannula Room Air Oxygen Flow Rate (L/min) 2 09/03/24 13:35 09/03/24 14:11 09/03/24 15:48 Temperature 98.3 F Temperature Source Pulse Rate 90 90 94 Respiratory Rate 20 H 24 H 26 H Respiratory Effort Respiratory Depth Respiratory Pattern Blood Pressure 133/79 H 151/78 H Blood Pressure Mean 97 102 Pulse Ox 95 91 Oxygen Delivery Method Nasal Cannula Oxygen Flow Rate (L/min) 2 Positive well nourished, well developed and no apparent distress General Appearance ED: well developed HEENT Reports normocephalic and head/scalp atraumatic Mouth ED: Yes moist mucous membranes normal Eyes PERRL and EOMs intact bilaterally Neck full ROM and supple Chest Wall inspection of chest normal Resp normal respiratory effort Resp Narrative: Expiratory wheezes to the bilateral lungs Cardio regular rate and regular rhythm GI soft to palpation, non-tender, non-distended and no masses Back/Spine normal ROM and normal to inspection Extremity normal to inspection and full ROM Neuro oriented x3, CN's II-XII intact bilaterally, moves all extremities, no focal motor deficits and no sensory deficits noted Sensorium / Orientation: awake and alert Psych mental status grossly normal and thought process normal Skin no rashes or lesions noted and no wounds Physical Exam Const Vital Signs: 09/03/24 12:32 09/03/24 12:35 09/03/24 12:37 Temperature 98.1 F Temperature Source Temporal Pulse Rate 82 Respiratory Rate 16 Respiratory Effort Respiratory Depth Respiratory Pattern Blood Pressure 152/75 H Blood Pressure Mean 100 Pulse Ox 85 95 89 Oxygen Delivery Method Room Air Nasal Cannula Room Air Oxygen Flow Rate (L/min) 2 09/03/24 12:37 09/03/24 12:50 09/03/24 13:20 Temperature 98.1 F Temperature Source Oral Pulse Rate 82 Respiratory Rate 16 16 Respiratory Effort Normal Non-Labored Respiratory Depth Normal Respiratory Pattern Normal Blood Pressure 152/75 H Blood Pressure Mean 100 Pulse Ox 89 95 Oxygen Delivery Method Room Air Nasal Cannula Room Air Oxygen Flow Rate (L/min) 2 09/03/24 13:35 09/03/24 14:11 09/03/24 15:48 Temperature 98.3 F Temperature Source Pulse Rate 90 90 94 Respiratory Rate 20 H 24 H 26 H Respiratory Effort Respiratory Depth Respiratory Pattern Blood Pressure 133/79 H 151/78 H Blood Pressure Mean 97 102 Pulse Ox 95 91 Oxygen Delivery Method Nasal Cannula Oxygen Flow Rate (L/min) 2 MDM MDM MDM Narrative Medical decision making narrative: Patient presenting today due to shortness of breath with exertion that has been worsening over the past month. He has a history of COPD, he has had intermittent wheezing, he does have wheezing on exam. His exam is consistent with a COPD exacerbation. Low suspicion for PE at this time. He will be given IV Solu-Medrol and albuterol and DuoNeb breathing treatments. Patient was hypoxic on initial arrival at 85%, he was placed on 2 L supplemental O2. He wastaken back off of the oxygen and did desaturate again into the upper 80s. Labs were obtained, his CBC, BMP, troponin, and BNP are unremarkable.Chest x-ray shows moderate bilateral pleural effusions. No infiltrate. He denies any history of CHF. Given his hypoxia and not having supplemental O2 at home, I will speak with the hospitalist for admission. VBG obtained and does show CO2 retention but he is stable at this time not requiring BiPAP.He will be admitted to the hospital in stable condition. ED attending note: I evaluated the patient in conjunction with the ARMAAN. I agree with his/her statements and above findings. I have personally performed a face to face assessment of the patient and have reviewed the APPNote. I performed a substantive portion of the visit including all aspects of the following. I perso victoria saw the patient performed chart review, physical exam, reviewed labs,imaging (if obtained), and formulated a treatment and management plan. EKG with normal sinus rhythm rate of 89, prolonged GA interval, first-degree AV block, left ax deviation, QTc 442, no STEMI, no sign of a atrial fibrillation This note was generated with [employer]olaic[employer] dictation software. It may contain incorrectwords, spelling, and punctuation that were not noted in review of the chart prior to signing. Lab Data Labs: Laboratory Results - last 24 hr 09/03/24 09/03/24 12:38 12:40 WBC 9.6 RBC 5.02 Hgb 14.5 Hct 46.0 MCV 91.6 MCH 28.9 MCHC 31.5 L RDW Std Deviation 45.1 H RDW Coeff of Carole 13.4 Plt Count 274 MPV 9.8 Immature Gran % (Auto) 0.400 Neut % (Auto) 78.1 H Lymph % (Auto) 9.5 L Cache % (Auto) 7.5 Eos % (Auto) 3.8 Baso % (Auto) 0.7 Absolute Neuts (auto) 7.5 Absolute Lymphs (auto) 0.91 Nucleated RBC % 0 Sodium 139 Potassium 4.4 Chloride 99 Carbon Dioxide 30.9 Anion Gap 9 BUN 8 Creatinine 0.65 L Estim Creat Clear Calc 95.10 Est GFR (MDRD) Non-Af 97 BUN/Creatinine Ratio 13.1 Glucose 103 H Calcium 9.1 Troponin T High Sens 12 NT pro BNP II 267 ABG Data ABG results: ABG 09/03/24 14:11 Specimen Type GABRIEL Sample Site Not entered O2 % 2.0 VBG pH 7.35 VBG pO2 46 H VBG HCO3 36 H VBG Total CO2 38 H VBG O2 Sat (Calc) 77 H VBG Base Excess 10 H POC Mix VBG pCO2 Pt Tmp 65.6 H O2 Delivery Device Cannula Radiography X-Ray: Read by ED Physician Diagnostic Testing: Clinical Impression(s) from Imaging Studies Chest X-Ray 09/03/24 13:24 IMPRESSION: Moderate bilateral pleural effusions. Reading Location: [facility] MDM Narrative Medical decision making narrative: Patient presenting today due to shortness of breath with exertion that has been worsening over the past month. He has a history of COPD, he has had intermittent wheezing, he does have wheezing on exam. His exam is consistent with a COPD exacerbation. Low suspicion for PE at this time. He will be given IV Solu-Medrol and albuterol and DuoNeb breathing treatments. Patient was hypoxic on initial arrival at 85%, he was placed on 2 L supplemental O2. He wastaken back off of the oxygen and did desaturate again into the upper 80s. Labs were obtained, his CBC, BMP, troponin, and BNP are unremarkable.Chest x-ray shows moderate bilateral pleural effusions. No infiltrate. He denies any history of CHF. Given his hypoxia and not having supplemental O2 at home, I will speak with the hospitalist for admission. VBG obtained and does show CO2 retention but he is stable at this time not requiring BiPAP.He will be admitted to the hospital in stable condition. ED attending note: I evaluated the patient in conjunction with the ARMAAN. I agree with his/her statements and above findings. I have personally performed a face to face assessment of the patient and have reviewed the APPNote. I performed a substantive portion of the visit including all aspects of the following. I perso victoria saw the patient performed chart review, physical exam, reviewed labs,imaging (if obtained), and formulated a treatment and management plan. EKG with normal sinus rhythm rate of 89, prolonged GA interval, first-degree AV block, left ax deviation, QTc 442, no STEMI, no sign of a atrial fibrillation Patient chest x-ray was read reviewed personally myself showed no evidence of obvious pneumonia. Radiologist noted bilateral pneumonia. This note was generated with Sola[employer] dictation software. It may contain incorrectwords, spelling, and punctuation that were not noted in review of the chart prior to signing. Lab Data Attestation: I reviewed the patient's lab results. Labs: Laboratory Results - last 24 hr 09/03/24 09/03/24 12:38 12:40 WBC 9.6 RBC 5.02 Hgb 14.5 Hct 46.0 MCV 91.6 MCH 28.9 MCHC 31.5 L RDW Std Deviation 45.1 H RDW Coeff of Carole 13.4 Plt Count 274 MPV 9.8 Immature Gran % (Auto) 0.400 Neut % (Auto) 78.1 H Lymph % (Auto) 9.5 L Cache % (Auto) 7.5 Eos % (Auto) 3.8 Baso % (Auto) 0.7 Absolute Neuts (auto) 7.5 Absolute Lymphs (auto) 0.91 Nucleated RBC % 0 Sodium 139 Potassium 4.4 Chloride 99 Carbon Dioxide 30.9 Anion Gap 9 BUN 8 Creatinine 0.65 L Estim Creat Clear Calc 95.10 Est GFR (MDRD) Non-Af 97 BUN/Creatinine Ratio 13.1 Glucose 103 H Calcium 9.1 Troponin T High Sens 12 NT pro BNP II 267 ABG Data ABG results: ABG 09/03/24 14:11 Specimen Type GABRIEL Sample Site Not entered O2 % 2.0 VBG pH 7.35 VBG pO2 46 H VBG HCO3 36 H VBG Total CO2 38 H VBG O2 Sat (Calc) 77 H VBG Base Excess 10 H POC Mix VBG pCO2 Pt Tmp 65.6 H O2 Delivery Device Cannula Radiography Diagnostic Testing: Clinical Impression(s) from Imaging Studies Chest X-Ray 09/03/24 13:24 IMPRESSION: Moderate bilateral pleural effusions. Reading Location: [id number] Discharge Plan Dx/Rx/DC Orders Clinical Impression: Hypoxia, Shortness of breath, COPD exacerbation, Pleural effusion, bilateral Disposition Disposition: Acute Care Hospital [facility] Discharge Date/Time: 09/03/24 15:56 What to do if you have Problems For any increased pain, shortness of breath, bleeding, nausea or vomiting, chestpain, or any unexpected problems, contact your Primary Care Provider. Call [facility] ([phone]) or report tothe closest Emergency Room. Call 911 if necessary. 09/03/24 1611 Cosigner Signature (if applicable): 09/03/24 1850 CC: Dr. Thiago Morgan MD ~ Signed [facility]03-30-2025 History and physical note [facility] Medical Records Department [address] [place] [address] H&P Exam - Hospitalist 09/03/24 1549 MR#: [id number] Acct: [id number] Name: EDUARD RUSSELL Rep #:[id number] : 1945 79 From: Vibha Matias MD PCP: Dr. Thiago Morgan MD Status:ADM IN Location: [facility] [id number] HPI - General General Date of Admission: 09/03/24 Date of Service: 09/03/24 Chief Complaint: Shortness of breath and hypoxia HPI Narrative EDUARD RUSSELL, is a 79-year-old male history of COPD and hyperthyroidism who presented to [facility] ED 09/03/2024 with increasing shortness of breath on exertion over the past month and occasional wheezing. Also has a productive cough with hallman sputum over the past month which has not necessarily worsened. On arrival patient afebrile and initially patient 85% on room air on arrival and was placed on 2 L of O2 and given IV Solu-Medrol and DuoNebs. Chest x-ray with moderate bilateral pleural effusions with no acute infiltrate. Patient's VBG in the ED with bicarb of 36 and total CO2 of 38, troponin 12, BNP 267. Due to patient's hypoxia hospitalist contacted for admission for COPD exacerbation. Patient evaluated with family members at bedside, patient has COPD and followswith his primary care physician for management of his COPD, reports that for the past week he has had increased shortness of breath and cough with hallman sputum and had a "very bad night last night" per family so today they checked his oxygen and it was low to mid 80s andnever went above 90s prompting them to bring him to the ED. Patient reports breathing is about the same at this time, no fevers, no chest pain, no weight gain, no increased swelling in lower extremities, no bowel or bladder compla ints. No history of heart failure [facility] Medical History Essential tremor Cataract COPD (chronic obstructive pulmonary disease) Thyroid disease Asthma Home Medications ?Medication ?Instructions ?Recorded ?Last Taken ?Type methimazole 5 mg tablet 5 mg PO QDAY #90 tabs 09/03/24 Rx fluticasone furoate 100 1 inh inhalation DAILY 09/0309/02/24 History mcg-vilanterol 25 mcg/dose inhalation powder (Breo Ellipta) Allergy/AdvReac Type Severity Reaction Status Date / Time shellfish derived AdvReac Mild Nausea/Vom/ Verified 09/03/24 12:32 Diarrhea Family History Mother Colon cancer Sister Colon cancer Surgical History H/O cataract extraction H/O shoulder surgery H/O sinus surgery Social History adopted: No household members: spouse number of children: 2 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: Yes (1) pets and animals: dog(s) Smoking Status: Current every day smoker tobacco type: cigarettes Tobacco: How many years used: 40 quit status: considering quitting alcohol intake: never substance use type: does not use caffeine: Yes (1) Type: coffee frequency: does not exercise seatbelt use: always do you feel safe at home: Yes ROS ROS Narrative General: Denies fever/chills HENT: Denies headache, denies stuffy nose, denies sore throat EYES: Denies changes in vision Resp: Productive cough with hallman sputum, increased shortness of breath and hypoxia for 1 month Cardiac: Denies chest pain GI: Denies abdominal pain, denies changes in bowel, denies nausea/vomiting : Denies changes in urination Extremity: Denies swelling MSK: Denies weakness Neuro: Denies any numbness/tingling Heme: Denies any bleeding or bruising Skin: Denies rashes Psychiatric: No complaints voiced Vital Signs Vital Signs Vital Signs: 09/03/24 12:32 09/03/24 12:35 09/03/24 12:37 Temperature 98.1 F Temperature Source Temporal Pulse Rate 82 Respiratory Rate 16 Respiratory Effort Respiratory Depth Respiratory Pattern Blood Pressure 152/75 H Blood Pressure Mean 100 Pulse Ox 85 95 89 Oxygen Delivery Method Room Air Nasal Cannula Room Air Oxygen Flow Rate (L/min) 2 09/03/24 12:37 09/03/24 12:50 09/03/24 13:20 Temperature 98.1 F Temperature Source Oral Pulse Rate 82 Respiratory Rate 16 16 Respiratory Effort Normal Non-Labored Respiratory Depth Normal Respiratory Pattern Normal Blood Pressure 152/75 H Blood Pressure Mean 100 Pulse Ox 89 95 Oxygen Delivery Method Room Air Nasal Cannula Room Air Oxygen Flow Rate (L/min) 2 09/03/24 13:35 09/03/24 14:11 Temperature Temperature Source Pulse Rate 90 90 Respiratory Rate 20 H 24 H Respiratory Effort Respiratory Depth Respiratory Pattern Blood Pressure 133/79 H Blood Pressure Mean 97 Pulse Ox 95 Oxygen Delivery Method Nasal Cannula Oxygen Flow Rate (L/min) 2 Weight Weight: 97.522 kg Body Mass Index (BMI) 28.3 Physical Exam Narrative General: Alert, oriented, no apparent distress HEENT: Atraumatic, normocephalic Eyes: Anicteric, normal conjunctiva, extraocular movements grossly intact Neck: Supple Respiratory: Fairly normal respiratory effort but does have diffuse expiratory wheezes and somewhatdull at the bases Cardiovascular: Regular rate and rhythm GI: Soft, nontender, nondistended Extremities: No edema Musculoskeletal: Moving all extremities Neuro: No overt focal neurological deficits Skin: No rashes appreciated Psych: Cooperative Results Lab / Micro Data 09/03/24 12:40 09/03/24 12:40 Labs: Laboratory Results - last 24 hr 09/03/24 12:38: Troponin T High Sens 12, NT pro BNP II 267 09/03/24 12:40: WBC 9.6, RBC 5.02, Hgb 14.5, Hct 46.0, MCV 91.6, MCH 28.9, MCHC 31.5 L, RDW Std Deviation 45.1 H, RDW Coeff of Carole 13.4, Plt Count 274, MPV 9.8,Immature Gran % (Auto) 0.400, Neut % (Auto) 78.1 H, Lymph % (Auto) 9.5 L, Cache %(Auto) 7.5, Eos % (Auto) 3.8, Baso % (Auto) 0.7, Absolute Neuts (auto) 7.5, Absolute Lymphs (auto) 0.91, Nucleated RBC % 0, Sodium 139, Potassium 4.4, Mftofgls28, Carbon Dioxide 30.9, Anion Gap 9, BUN 8, Creatinine 0.65 L, Estim Creat Clear Calc 95.10, Est GFR (MDRD) Non-Af 97, BUN/Creatinine Ratio 13.1, Glucose 103 H, Calcium 9.1 ABG Data ABG results: ABG 09/03/24 14:11 Specimen Type GABRIEL Sample Site Not entered O2 % 2.0 VBG pH 7.35 VBG pO2 46 H VBG HCO3 36 H VBG Total CO2 38 H VBG O2 Sat (Calc) 77 H VBG Base Excess 10 H POC Mix VBG pCO2 Pt Tmp 65.6 H O2 Delivery Device Cannula Imaging Radiology Impression Chest X-Ray 09/03/24 13:24 IMPRESSION: Moderate bilateral pleural effusions. Reading Location: [facility] Assessment & Plan Assessment/Plan (1) COPD exacerbation: PLAN: Plan #Acute exacerbation of COPD -Admit to floor, continuous O2 monitoring -Chest x-ray: No acute infiltrate but notes bilateral pleural effusions -COVID negative, obtain respiratory panel, sputum culture if able -O2 in place, wean as tolerated -IV methylprednisone -Scheduled DuoNebs -Albuterol prn -Antibiotics: Azithromycin -Incentive spirometer -Mucinex # Abnormal chest x-ray -Chest x-ray reported out as bilateral pleural effusions, moderate, no recent chest x-rays for comparison, patient denies any history of heart failure and hasdenied any weight gain or swelling in lower extremities, no chest pain, troponinand BNP within normal limits -Will obtain CT and echocardiogram for better characterization as patient still 90% in the ED on 2 L and suspect that this is a component of his hypoxia on top of the COPD exacerbation -Will monitor daily weights and I's and O's -Heart healthy diet while awaiting further workup #Hx hyperthyroidism -Continue methimazole -TSH, free T4 and free T3 #DVT ppx: Lovenox subcu Charges/Coding Visit Charges Inpatient E&M: 71656 Init Hosp L2 09/03/24 1559 Cosigner Signature (if applicable): CC: Dr. Thiago Morgan MD; Dr. Vibha Matias MD~ Signed ADDENDUM by Dr. Vibha Matias MD on 09/03/[address] still pending but will change Lovenox to SCDs for DVT prophylaxis in the event patient will needsomething like a thoracentesis 09/03/241822 Cosigner Signature (if applicable): cc: Dr. Thiago Morgan MD; Dr. Vibha Matias MD ~* Signed [facility]03-30-2025 Evaluation note* Diagnosis Onset Date Resolution Status Admit Date COPD exacerbation resolved August 072024 3:49pm [facility] Work Phone: 1(815) 920-839003-30-2025 Evaluation note* Diagnosis Onset Date Resolution Status Admit Date COPD exacerbation resolved August 072024 3:49pm Abnormal craving noneactive September 182024 1:20pm Moderate sized pleural effusion noneactive September 18, 2024 1:20pm Decreased energy noneactive September 182024 1:20pm Acute hypoxic respiratory failure noneactive September 18, 2024 1:20pm COPD (chronic obstructive pulmonary disease) noneactive September 18, 2 025 1:20pm Hospital discharge follow-up noneact mary September 18, 2024 1:20pm [facility] Work Phone: 1(325) 714-738603-30-2025 Evaluation note* Diagnosis Onset Date Resolution Status Admit Date COPD exacerbation resolved August 072024 3:49pm Abnormal craving noneactive September 182024 1:20pm Moderate sized pleural effusion noneactive September 18, 2024 1:20pm Decreased energy noneactive September 182024 1:20pm Acute hypoxic respiratory failure noneactive September 18, 2024 1:20pm COPD (chronic obstructive pulmonary disease) noneactive September 18, 2 025 1:20pm Hospital discharge follow-up noneact mary September 18, 2024 1:20pm Hypoxia acute October 23, 2024 2:14pm [facility] Work Phone: 1(139) 762-760803-30-2025 Evaluation note* Diagnosis Onset Date Resolution Status Admit Date COPD exacerbation resolved August 072024 3:49pm Abnormal craving noneactive September 182024 1:20pm Moderate sized pleural effusion noneactive September 18, 2024 1:20pm Decreased energy noneactive September 182024 1:20pm Acute hypoxic respiratory failure noneactive September 18, 2024 1:20pm COPD (chronic obstructive pulmonary disease) noneactive September 18, 2 025 1:20pm Hospital discharge follow-up noneact mary September 18, 2024 1:20pm Hypoxia inactive October 23, 2024 2:14pm Bilateral pleural effusion acute November 02, 2024 10:24am COPD (chronic obstructive pulmonary disease) chronic November 02 10:24am [facility] Work Phone: 1(761) 131-284803-30-2025 Evaluation note* Diagnosis Onset Date Resolution Status Admit Date COPD exacerbation resolved August 072024 3:49pm Abnormal craving noneactive September 182024 1:20pm Moderate sized pleural effusion noneactive September 18, 2024 1:20pm Decreased energy noneactive September 182024 1:20pm Acute hypoxic respiratory failure noneactive September 18, 2024 1:20pm COPD (chronic obstructive pulmonary disease) noneactive September 18, 2 025 1:20pm Hospital discharge follow-up noneact mary September 18, 2024 1:20pm Hypoxia inactive October 23, 2024 2:14pm Bilateral pleural effusion chronic November 02, 2024 10:24am COPD (chronic obstructive pulmonary disease) chronic November 02 10:24am [facility] Work Phone: 1(488) 644-777703-30-2025 Evaluation note* Diagnosis Onset Date Resolution Status Admit Date COPD exacerbation resolved August 072024 3:49pm Abnormal craving noneactive September 182024 1:20pm Moderate sized pleural effusion noneactive September 18, 2024 1:20pm Decreased energy noneactive September 182024 1:20pm Acute hypoxic respiratory failure noneactive September 18, 2024 1:20pm COPD (chronic obstructive pulmonary disease) noneactive September 18, 2 025 1:20pm Hospital discharge follow-up noneact mary September 18, 2024 1:20pm Hypoxia inactive October 23, 2024 2:14pm Bilateral pleural effusion chronic November 02, 2024 10:24am COPD (chronic obstructive pulmonary disease) chronic November 02 10:24am Pleural effusion, right acute J une 2024 1:15pm Bilateral pleural effusion chronic November 16, 2024 1:15pm [facility] Work Phone: 1(732) 507-482703-30-2025 Evaluation note* Diagnosis Onset Date Resolution Status Admit Date COPD exacerbation resolved August 072024 3:49pm Abnormal craving noneactive September 182024 1:20pm Moderate sized pleural effusion noneactive September 18, 2024 1:20pm Decreased energy noneactive September 182024 1:20pm Acute hypoxic respiratory failure noneactive September 18, 2024 1:20pm COPD (chronic obstructive pulmonary disease) noneactive September 18, 2 025 1:20pm Hospital discharge follow-up noneact mary September 18, 2024 1:20pm Hypoxia inactive October 23, 2024 2:14pm Bilateral pleural effusion chronic November 02, 2024 10:24am COPD (chronic obstructive pulmonary disease) chronic November 02 10:24am Pleural effusion, right acute J une 2024 1:15pm Bilateral pleural effusion chronic November 16, 2024 1:15pm Bilateral pleural effusion chronic November 24, 2024 10:05am [facility] Work Phone: 1(252) 665-378503-30-2025 Evaluation note* Diagnosis Onset Date Resolution Status Admit Date COPD exacerbation resolved August 072024 3:49pm Abnormal craving noneactive September 182024 1:20pm Moderate sized pleural effusion noneactive September 18, 2024 1:20pm Decreased energy noneactive September 182024 1:20pm Acute hypoxic respiratory failure noneactive September 18, 2024 1:20pm COPD (chronic obstructive pulmonary disease) noneactive September 18, 2 025 1:20pm Hospital discharge follow-up noneact mary September 18, 2024 1:20pm Hypoxia inactive October 23, 2024 2:14pm Bilateral pleural effusion chronic November 02, 2024 10:24am COPD (chronic obstructive pulmonary disease) chronic November 02 10:24am Pleural effusion, right acute J une 2024 1:15pm Bilateral pleural effusion chronic November 16, 2024 1:15pm Bilateral pleural effusion chronic November 24, 2024 10:05am Acute hypoxic respiratory failure acute December 05, 2024 1 0:27am Bilateral pleural effusion chronic December 05, 2024 10:27am COPD (chronic obstructive pulmonary disease) chronic December 05 10:27am [facility] Work Phone: 1([phone]) 856-402903-30-2025 Evaluation note* Diagnosis Onset Date Resolution Status Admit Date COPD exacerbation resolved August 072024 3:49pm Abnormal craving noneactive September 182024 1:20pm Moderate sized pleural effusion none active September 18, 2024 1:20pm Decreased energy noneactive September 182024 1:20pm Acute hypoxic respiratory failure noneactive September 18, 2024 1:20pm COPD (chronic obstructive pulmonary disease) noneactive September 18, 2 025 1:20pm Hospital discharge follow-up noneact mary September 18, 2024 1:20pm Hypoxia inactive October 23, 2024 2:14pm Bilateral pleural effusion chronic November 02, 2024 10:24am COPD (chronic obstructive pulmonary disease) chronic November 02 10:24am Pleural effusion, right acute J une 2024 1:15pm Bilateral pleural effusion chronic November 16, 2024 1:15pm Bilateral pleural effusion chronic November 24, 2024 10:05am Acute hypoxic respiratory failure acute December 05, 2024 10:27am Bilateral pleural effusion chronic December 05, 2024 10:27am COPD (chronic obstructive pulmonary disease) chronic December 05 10:27am Immunization due noneactive December 10:19am Chronic respiratory failure noneacti ve December 21, 2024 10:19am Hyperthyroidism noneactive December 10:19am COPD (chronic obstructive pulmonary disease) noneactive December 21 10:19am Moderate sized pleural effusion none active December 21, 2024 10:19am Acute hypoxic respiratory failure noneactive December 21, 2024 10:19am [facility] Work Phone: 1(409) 208-773403-30-2025 Evaluation note* Diagnosis Onset Date Resolution Status Admit Date COPD exacerbation resolved August 072024 3:49pm Abnormal craving noneactive September 182024 1:20pm Moderate sized pleural effusion none active September 18, 2024 1:20pm Decreased energy noneactive September 182024 1:20pm Acute hypoxic respiratory failure noneactive September 18, 2024 1:20pm COPD (chronic obstructive pulmonary disease) noneactive September 18, 2 025 1:20pm Hospital discharge follow-up noneact mary September 18, 2024 1:20pm Hypoxia inactive October 23, 2024 2:14pm Bilateral pleural effusion chronic November 02, 2024 10:24am COPD (chronic obstructive pulmonary disease) chronic November 02 10:24am Pleural effusion, right acute J une 2024 1:15pm Bilateral pleural effusion chronic November 16, 2024 1:15pm Bilateral pleural effusion chronic November 24, 2024 10:05am Acute hypoxic respiratory failure acute December 05, 2024 10:27am Bilateral pleural effusion chronic December 05, 2024 10:27am COPD (chronic obstructive pulmonary disease) chronic December 05 10:27am Immunization due noneactive December 10:19am Chronic respiratory failure noneacti ve December 21, 2024 10:19am Hyperthyroidism noneactive December 10:19am COPD (chronic obstructive pulmonary disease) noneactive December 21 10:19am Recurrent pleural effusion noneactiv e December 21, 2024 10:19am Quit smoking noneactive December 21, 10:19am [facility] Work Phone: [phone] 146-899103-30-2025 Radiology Diagnostic study note [facility] Imaging Services [address] [place] [address] Chest PA and Lateral MR#: [id number] Acct: [id number] Name: EDUARD RUSSELL Rep #: [id number] : 1945 [facility] From: Rubia Evans MD PCP: Dr. Thiago Morgan MD Status: REG ER Study:Chest PA and Lateral Date of Exam: 09/03/24 Exam# [id number] Ordering Dr: Mary Saldana PROCEDURE: CHEST PA AND LATERAL 09/03/2024 REASON FOR EXAM: 79-year-old male, shortness of breath. TECHNIQUE: Frontal and lateral views of the chest. COMPARISON: None. FINDINGS: Hardware: None. Heart: The cardiomediastinal silhouette is obscured. Pulmonary vascular congestion. Lungs: Moderate bilateral pleural effusions with adjacent atelectasis. No largefocal consolidation or pneumothorax. Bones: Degenerative changes are identified within the thoracic spine. RAD/Chest PA and Lateral IMPRESSION: Moderate bilateral pleural effusions. Reading Location: [id number] CC: Dr. Thiago Morgan MD; TERRY Franz ~ It Architecture Consultant: Signed [facility]07-31-2024 Telephone encounter Note* Telephone Encounter - Natalie Melo LPN - 01/05/2024 10:57 AM EDT Pharm[facility] message requesting the following refill. Requested Prescriptions Pending Prescriptions Disp Refills BREO ELLIPTA 100-25 mcg/dose inhaler [Pharmacy Med Name: Breo Ellipta 100 mcg-25 mcg/dose powder for inhalation] 3 Each 3 Sig: Inhale 1 Inhalation as instructed once daily. Patient last appointment: 08/25/2023 Next appointment 02/23/2024 Patient Phone numbers: [phone] (home) Request is for script(s) to be escript to [facility] pharmacy. Natalie Melo LPN [facility]07-31-2024 Miscellaneous Notes* Telephone Encounter - Natalie Melo LPN - 01/05/2024 10:57 AM EDT Pharm[facility] message requesting the following refill. Requested Prescriptions Pending Prescriptions Disp Refills BREO ELLIPTA 100-25 mcg/dose inhaler [Pharmacy Med Name: Breo Ellipta 100 mcg-25 mcg/dose powder for inhalation] 3 Each 3 Sig: Inhale 1 Inhalation as instructed once daily. Patient last appointment: 08/25/2023 Next appointment 02/23/2024 Patient Phone numbers: [phone] (home) Request is for script(s) to be escript to [facility] pharmacy. Natalie Melo LPN documented in this encounterAdena Health System04-16-2024 Miscellaneous Notes* Telephone Encounter - Roro Davis MA - 09/21/2023 9:07 AM EDT Items addressed in this encounter: Telephone Encounter Per scheduling, 3rd attempt LVM to schedule [facility] clinic dx: Tobacco abuse [Z72.0] no call back Able to close encounter. Roro Davis MA September 21, 2023 9:07 AM 9:07 AM documented in this encounterAdena Health System03-20-2024 NoteHNO ID: [id number] Author: MARIBELL SPENCE MD Service: ? Author Type: Physician Type: Progress Notes Filed: 08/25/2023 11:01 Note Text: Subjective Eduard Russell is a 78 year old male.Patient presents today for follow-up for multiple medical problems. See list. His chronic medical problems been stable. He is compliant with his medications. He has no new complaints today. Review of Systems Constitutional: Negative. HENT: Negative. Eyes: Negative. Respiratory: Negative. Cardiovascular: Negative. Gastrointestinal: Negative. Endocrine: Negative. Genitourinary: Negative. Musculoskeletal: Negative. Skin: Negative. Allergic/Immunologic: Negative. Neurological: Negative. Hematological: Negative. Psychiatric/Behavioral: Negative. PAST SURGICAL HISTORY Procedure Laterality Date SEPTOPLASTY ~1999 nasal SHOULDER ARTHROSCOPY/SURGERY age 42 PAST MEDICAL HISTORY Diagnosis Date Asthma COPD (chronic obstructive pulmonary disease) ([facility]) Grave's disease Tobacco abuse FAMILY HISTORY Problem Relation Age of Onset Cancer Mother Colon Cancer Mother Alzheimer's Disease Mother Heart disease Father Coronary Artery Disease Father 71 fatal ID Social History Tobacco Use Smoking status: Every Day Packs/day: 1 Types: Cigarettes Smokeless tobacco: Never Vaping Use Vaping Use: Never used Substance Use Topics Alcohol use: Yes Comment: occasional Drug use: Not Currently ALLERGIES Allergen Reactions Shellfish Anaphylaxis MEDICATIONS: methIMAzole (TAPAZOLE) 5 mg tablet Take 1 tablet by mouth once daily. BREO ELLIPTA 100-25 mcg/dose inhaler Inhale 1 Inhalation as instructed once daily. sildenafil (VIAGRA) 50 mg tablet Take 1 tablet by mouth once daily as needed. Allergies, past surgical history, family history and past medical history were reviewed per this encounter. Medications were reviewed and verified. Objective BP 126/72 (BP Site: Left Arm, BP Position: Sitting, BP Cuff Size: Large Adult) Pulse 66 Temp 36.8 ?C (98.2 ?F) (Temporal) Resp 15 Ht 188 cm (6' 2") Wt 98.5 kg (217 lb 2 oz) SpO2 96% BMI 27.88 kg/m? Physical Exam Vitals reviewed. Constitutional: Appearance: Normal appearance. HENT: Head: Normocephalic and atraumatic. Nose: Nose normal. Eyes: Extraocular Movements: Extraocular movements intact. Pupils: Pupils are equal, round, and reactive to light. Cardiovascular: Rate and Rhythm: Normal rate and regular rhythm. Pulmonary: Effort: Pulmonary effort is normal. Breath sounds: Normal breath sounds. Abdominal: General: Bowel sounds are normal. Palpations: Abdomen is soft. Musculoskeletal: General: Normal range of motion. Cervical back: Normal range of motion and neck supple. Skin: General: Skin is warm and dry. Capillary Refill: Capillary refill takes less than 2 seconds. Neurological: General: No focal deficit present. Mental Status: He is alert and oriented to person, place, and time. Mental status is at baseline. Psychiatric: Mood and Affect: Mood normal. Behavior: Behavior normal. Assessment and Plan Encounter Diagnosis ICD-10-CM 1. Lipid screening Z13.220 LIPID PANEL BASIC 2. Chronic obstructive pulmonary disease, unspecified COPD type (HCC) J44.9 3. Wellness examination Z00.00 COMP METABOLIC PANEL 4. Screening PSA (prostate specific antigen) Z12.5 PSA/PROSTSPECAG SCRN 5. Screening for deficiency anemia Z13.0 CBC + DIFF 6. Tobacco abuse Z72.0 CONSULT LUNG CANCER SCREENING CLINIC Continue present medications. Check labs as above. Monitor blood pressure regularly. Exercise as tolerated. Maintain good diet. Counseled smoking cessation. Consult to lung cancer screening clinic. Follow-up in 6 months. Maribell Spence, [facility]03-20-2024 NoteHNO ID: [id number] Author: RACHEAL SANCHEZ LPN Service: ? Author Type: LICENSED NURSE Type: Progress Notes Filed: 08/25/2023 11:01 Note Text: Patient is in office today for 6 month exam. KINGA: 02/24/2023 Medicare Wellness Exam Patient denies any concerns today. No refills needed. Racheal Sanchez LPN August 25, 2023 10:19 [facility]03-20-2024 History of Present illness Narrative* Maribell Spence MD - 08/25/2023 10:34 AM EDT Subjective Eduard Russell is a 78 year old male.Patient presents today for follow-up for multiple medical problems. See list. His chronic medical problems been stable. He is compliant with his medications. He has no new complaints today. Review of Systems Constitutional: Negative. HENT: Negative. Eyes: Negative. Respiratory: Negative. Cardiovascular: Negative. Gastrointestinal: Negative. Endocrine: Negative. Genitourinary: Negative. Musculoskeletal: Negative. Skin: Negative. Allergic/Immunologic: Negative. Neurological: Negative. Hematological: Negative. Psychiatric/Behavioral: Negative. PAST SURGICAL HISTORY Procedure Laterality Date SEPTOPLASTY ~1999 nasal SHOULDER ARTHROSCOPY/SURGERY age 42 PAST MEDICAL HISTORY Diagnosis Date Asthma COPD (chronic obstructive pulmonary disease) (HCC) Grave's disease Tobacco abuse FAMILY HISTORY Problem Relation Age of Onset Cancer Mother Colon Cancer Mother Alzheimer's Disease Mother Heart disease Father Coronary Artery Disease Father 71 fatal ID Social History Tobacco Use Smoking status: Every Day Packs/day: 1 Types: Cigarettes Smokeless tobacco: Never Vaping Use Vaping Use: Never used Substance Use Topics Alcohol use: Yes Comment: occasional Drug use: Not Currently ALLERGIES Allergen Reactions Shellfish Anaphylaxis MEDICATIONS: methIMAzole (TAPAZOLE) 5 mg tablet Take 1 tablet by mouth once daily. BREO ELLIPTA 100-25 mcg/dose inhaler Inhale 1 Inhalation as instructed once daily. sildenafil (VIAGRA) 50 mg tablet Take 1 tablet by mouth once daily as needed. Allergies, past surgical history, family history and past medical history were reviewed per this encounter. Medications were reviewed and verified. Objective BP 126/72 (BP Site: Left Arm, BP Position: Sitting, BP Cuff Size: Large Adult) Pulse 66 Temp 36.8 C (98.2 F) (Temporal) Resp 15 Ht 188 cm (6' 2") Wt 98.5 kg (217 lb 2 oz) SpO2 96% BMI 27.88 kg/m Physical Exam Vitals reviewed. Constitutional: Appearance: Normal appearance. HENT: Head: Normocephalic and atraumatic. Nose: Nose normal. Eyes: Extraocular Movements: Extraocular movements intact. Pupils: Pupils are equal, round, and reactive to light. Cardiovascular: Rate and Rhythm: Normal rate and regular rhythm. Pulmonary: Effort: Pulmonary effort is normal. Breath sounds: Normal breath sounds. Abdominal: General: Bowel sounds are normal. Palpations: Abdomen is soft. Musculoskeletal: General: Normal range of motion. Cervical back: Normal range of motion and neck supple. Skin: General: Skin is warm and dry. Capillary Refill: Capillary refill takes less than 2 seconds. Neurological: General: No focal deficit present. Mental Status: He is alert and oriented to person, place, and time. Mental status is at baseline. Psychiatric: Mood and Affect: Mood normal. Behavior: Behavior normal. Assessment and Plan Encounter Diagnosis ICD-10-CM 1. Lipid screening Z13.220 LIPID PANEL BASIC 2. Chronic obstructive pulmonary disease, unspecified COPD type (HCC) J44.9 3. Wellness examination Z00.00 COMP METABOLIC PANEL 4. Screening PSA (prostate specific antigen) Z12.5 PSA/PROSTSPECAG SCRN 5. Screening for deficiency anemia Z13.0 CBC + DIFF 6. Tobacco abuse Z72.0 CONSULT LUNG CANCER SCREENING CLINIC Continue present medications. Check labs as above. Monitor blood pressure regularly. Exercise as tolerated. Maintain good diet. Counseled smoking cessation. Consult to lung cancer screening clinic. Follow-up in 6 months. Maribell Spence MD * Racheal Sanchez LPN - 08/25/2023 10:20 AM EDT Patient is in office today for 6 month exam. KINGA: 02/24/2023 Medicare Wellness Exam Patient denies any concerns today. No refills needed. Racheal Sanchez LPN August 25, 2023 10:19 AM documented in this encounterAdena Health System09-20-2023 NoteHNO ID: [id number] Author: Maribell Spence MD Service: ? Author Type: Physician Type: Progress Notes Filed: 02/24/2023 11:17 AM Note Text: This note was created using [employer]riter. Subjective Eduard Russell is a 77 year old male. Eduard presents for his annual wellness Medicare visit Review of Systems Constitutional: Negative. HENT: Negative. Eyes: Negative. Respiratory: Negative. Cardiovascular: Negative. Gastrointestinal: Negative. Endocrine: Negative. Genitourinary: Negative. Musculoskeletal: Negative. Skin: Negative. Allergic/Immunologic: Negative. Neurological: Negative. Hematological: Negative. Psychiatric/Behavioral: Negative. Objective BP 128/78 (BP Site: Left Arm, BP Position: Sitting, BP Cuff Size: Regular Adult) Pulse 76 Temp 36.3 ?C (97.3 ?F) (Temporal) Resp 18 Ht 188 cm (6' 2") Wt 95.6 kg (210 lb 12.8 oz) SpO2 97% BMI 27.07 kg/m? Physical Exam Vitals reviewed. Constitutional: Appearance: Normal appearance. HENT: Head: Normocephalic and atraumatic. Nose: Nose normal. Eyes: Extraocular Movements: Extraocular movements intact. Pupils: Pupils are equal, round, and reactive to light. Cardiovascular: Rate and Rhythm: Normal rate and regular rhythm. Pulmonary: Effort: Pulmonary effort is normal. Breath sounds: Normal breath sounds. Abdominal: General: Bowel sounds are normal. Palpations: Abdomen is soft. Musculoskeletal: General: Normal range of motion. Cervical back: Normal range of motion and neck supple. Skin: General: Skin is warm and dry. Capillary Refill: Capillary refill takes less than 2 seconds. Neurological: General: No focal deficit present. Mental Status: He is alert and oriented to person, place, and time. Mental status is at baseline. Psychiatric: Mood and Affect: Mood normal. Behavior: Behavior normal. Assessment and Plan Encounter Diagnosis ICD-10-CM 1. Wellness examination Z00.00 COMP METABOLIC PANEL 2. Counseling regarding advance directives and goals of care Z71.89 ADVANCE CARE PLAN DISCUSSION 3. Encounter for screening for depression Z13.31 DEPRESSION SCREENING/ASSESSMENT 4. Lipid screening Z13.220 LIPID PANEL BASIC 5. Screening for deficiency anemia Z13.0 CBC + DIFF 6. Screening PSA (prostate specific antigen) Z12.5 PSA/PROSTSPECAG SCRN 7. Tobacco dependence F17.200 CONSULT LUNG CANCER SCREENING CLINIC 8. Graves disease E05.00 TSH BLD All open preventative health maintenance topics discussed with patient in detail. This includes risks and benefits regarding vaccines, cancer screening, healthy life style, and diet. [facility]23 NoteHNO ID: [id number] Author: Carmen Álvarez LPN Service: ? Author Type: LICENSED NURSE Type: Progress Notes Filed: 02/24/2023 11:17 AM Note Text: Patient in the office today for an annual Medicare Wellness exam. Health Maintenance Due: Pneumococcal Vaccine: 65+(1 - PCV) declined Spirometry declined Hepatitis C Screening declined DTaP,Tdap,Td Vaccine(1 - Tdap) declined Alpha-1 Antitrypsin Deficiency Screening declined Shingrix Vaccine(1 of 2) administered right deltoid Colorectal Cancer Screening- due to cheryl with Dr Christopher for repeat colo.not scheduled at this time Covid-19 Vaccine(5 - Pfizer series) declined Influenza Vaccine(1) administered left deltoid Medicare Yearly Visit Current Outpatient Medications Medication Sig methIMAzole (TAPAZOLE) 5 mg tablet Take 5 mg by mouth once daily. BREO ELLIPTA 100-25 mcg/dose inhaler Inhale 1 Inhalation as instructed once daily. sildenafil (VIAGRA) 50 mg tablet Take 1 tablet by mouth once daily as needed. No current facility-administered medications for this visit. Medications reviewed: Yes Eduard denies regular aerobic exercise. He watches his diet for sodium, low fat and low cholesterol most of the time. End of Live Planning discussed including patients advanced directive wishes: No I am willing to follow Eduard advanced directives. Depression screen He in the past two weeks denies having felt down, depressed, hopeless, or with little interest or pleasure in doing things. Functional Ability/Safety Screen 1. Was the patient's timed Up and Go test unsteady or longer than 30 seconds? 2. Does the patient need help with the phone, transportation, shopping,preparing meals, housework, laundry, medications or managing money? No 3. Does your home have rungs in the hallway, lack of grab bars in the bathroom, lack of handrails on the stairs or have poor lighting? No BP 128/78 Pulse 76 Temp (Src) 97.3 (Temporal) Resp 18 Ht 6' 2" (1.88m) Wt 210 lb 12.8 oz (95.6kg) SpO2 97% BMI 27.05 kg/(m2). Maribell Spence, [facility]09-20-2023 History of Present illness Narrative* Maribell Spence MD - 02/24/2023 11:16 AM EDT This note was created using [employer]. Subjective Eduard Russell is a 77 year old male. Eduard presents for his annual wellness Medicare visit Review of Systems Constitutional: Negative. HENT: Negative. Eyes: Negative. Respiratory: Negative. Cardiovascular: Negative. Gastrointestinal: Negative. Endocrine: Negative. Genitourinary: Negative. Musculoskeletal: Negative. Skin: Negative. Allergic/Immunologic: Negative. Neurological: Negative. Hematological: Negative. Psychiatric/Behavioral: Negative. Objective BP 128/78 (BP Site: Left Arm, BP Position: Sitting, BP Cuff Size: Regular Adult) Pulse 76 Temp 36.3 C (97.3 F) (Temporal) Resp 18 Ht 188 cm (6' 2") Wt 95.6 kg (210 lb 12.8 oz) SpO2 97% BMI 27.07 kg/m Physical Exam Vitals reviewed. Constitutional: Appearance: Normal appearance. HENT: Head: Normocephalic and atraumatic. Nose: Nose normal. Eyes: Extraocular Movements: Extraocular movements intact. Pupils: Pupils are equal, round, and reactive to light. Cardiovascular: Rate and Rhythm: Normal rate and regular rhythm. Pulmonary: Effort: Pulmonary effort is normal. Breath sounds: Normal breath sounds. Abdominal: General: Bowel sounds are normal. Palpations: Abdomen is soft. Musculoskeletal: General: Normal range of motion. Cervical back: Normal range of motion and neck supple. Skin: General: Skin is warm and dry. Capillary Refill: Capillary refill takes less than 2 seconds. Neurological: General: No focal deficit present. Mental Status: He is alert and oriented to person, place, and time. Mental status is at baseline. Psychiatric: Mood and Affect: Mood normal. Behavior: Behavior normal. Assessment and Plan Encounter Diagnosis ICD-10-CM 1. Wellness examination Z00.00 COMP METABOLIC PANEL 2. Counseling regarding advance directives and goals of care Z71.89 ADVANCE CARE PLAN DISCUSSION 3. Encounter for screening for depression Z13.31 DEPRESSION SCREENING/ASSESSMENT 4. Lipid screening Z13.220 LIPID PANEL BASIC 5. Screening for deficiency anemia Z13.0 CBC + DIFF 6. Screening PSA (prostate specific antigen) Z12.5 PSA/PROSTSPECAG SCRN 7. Tobacco dependence F17.200 CONSULT LUNG CANCER SCREENING CLINIC 8. Graves disease E05.00 TSH BLD All open preventative health maintenance topics discussed with patient in detail. This includes risks and benefits regarding vaccines, cancer screening, healthy life style, and diet. Maribell Spence MD * Carmen Álvarez LPN - 02/24/2023 10:30 AM EDT Patient in the office today for an annual Medicare Wellness exam. Health Maintenance Due: Pneumococcal Vaccine: 65+(1 - PCV) declined Spirometry declined Hepatitis C Screening declined DTaP,Tdap,Td Vaccine(1 - Tdap) declined Alpha-1 Antitrypsin Deficiency Screening declined Shingrix Vaccine(1 of 2) administered right deltoid Colorectal Cancer Screening- due to cheryl with Dr Christopher for repeat colo.not scheduled at this time Covid-19 Vaccine(5 - Pfizer series) declined Influenza Vaccine(1) administered left deltoid Medicare Yearly Visit Current Outpatient Medications Medication Sig methIMAzole (TAPAZOLE) 5 mg tablet Take 5 mg by mouth once daily. BREO ELLIPTA 100-25 mcg/dose inhaler Inhale 1 Inhalation as instructed once daily. sildenafil (VIAGRA) 50 mg tablet Take 1 tablet by mouth once daily as needed. No current facility-administered medications for this visit. Medications reviewed: Yes Eduard denies regular aerobic exercise. He watches his diet for sodium, low fat and low cholesterol most of the time. End of Live Planning discussed including patients advanced directive wishes: No I am willing to follow Eduard advanced directives. Depression screen He in the past two weeks denies having felt down, depressed, hopeless, or with little interest or pleasure in doing things. Functional Ability/Safety Screen 1. Was the patient's timed Up and Go test unsteady or longer than 30 seconds? 2. Does the patient need help with the phone, transportation, shopping,preparing meals, housework, laundry, medications or managing money? No 3. Does your home have rungs in the hallway, lack of grab bars in the bathroom, lack of handrails on the stairs or have poor lighting? No BP 128/78 Pulse 76 Temp (Src) 97.3 (Temporal) Resp 18 Ht 6' 2" (1.88m) Wt 210 lb 12.8 oz (95.6kg) SpO2 97% BMI 27.05 kg/(m^2). Maribell Spence MD documented in this encounterAdena Health System08-15-2023 Miscellaneous Notes* Telephone Encounter - Carmen Álvarez LPN - 01/19/2023 5:24 PM EDT Being resolved in another encounter Carmen Álvarez LPN January 19, 2023 5:24 PM * Telephone Encounter - Tennille Tiwari - 01/19/2023 9:53 AM EDTSummary: Refill BREO ELLIPTA 100-25 mcg/dose inhaler [address] [place] [address] - [address] - [phone] documented in this encounterAdena Health System03-15-2023 History of Present illness Narrative* Maribell Spence MD - 08/19/2022 11:06 AM EDT This note was created using [employer]. Subjective Eduard Russell is a 77 year old male. Juancho presents today for follow-up for multiple medical problems. See list. His chronic medical problems been stable. His breathing is stable. He does have acough today. He continues to smoke. Review of Systems Constitutional: Negative. HENT: Negative. Eyes: Negative. Respiratory: Negative. Cardiovascular: Negative. Gastrointestinal: Negative. Endocrine: Negative. Genitourinary: Negative. Musculoskeletal: Negative. Skin: Negative. Allergic/Immunologic: Negative. Neurological: Negative. Hematological: Negative. Psychiatric/Behavioral: Negative. Objective BP 138/82 (BP Site: Left Arm, BP Position: Sitting, BP Cuff Size: Regular Adult) Pulse 82 Temp 36.2 C (97.1 F) (Temporal) Resp 18 Ht 188 cm (6' 2") Wt 101.7 kg (224 lb 3.2 oz) SpO2 95% BMI 28.79 kg/m Physical Exam Vitals reviewed. Constitutional: Appearance: Normal appearance. HENT: Head: Normocephalic and atraumatic. Nose: Nose normal. Eyes: Extraocular Movements: Extraocular movements intact. Pupils: Pupils are equal, round, and reactive to light. Cardiovascular: Rate and Rhythm: Normal rate and regular rhythm. Pulmonary: Effort: Pulmonary effort is normal. Breath sounds: Normal breath sounds. Abdominal: General: Bowel sounds are normal. Palpations: Abdomen is soft. Musculoskeletal: General: Normal range of motion. Cervical back: Normal range of motion and neck supple. Skin: General: Skin is warm and dry. Capillary Refill: Capillary refill takes less than 2 seconds. Neurological: General: No focal deficit present. Mental Status: He is alert and oriented to person, place, and time. Mental status is at baseline. Psychiatric: Mood and Affect: Mood normal. Behavior: Behavior normal. Assessment and Plan Eduard was seen today for 6 month exam. Diagnoses and all orders for this visit: Chronic obstructive pulmonary disease, unspecified COPD type (HCC) Graves disease - methIMAzole (TAPAZOLE) 10 mg tablet; Take 1 tablet by mouth once daily. - TSH BLD; Future - T4 FREE/FREE THYROX; Future Wellness examination - COMP METABOLIC PANEL; Future Lipid screening - LIPID PANEL BASIC; Future Screening for deficiency anemia - CBC + DIFF; Future Screening PSA (prostate specific antigen) - PSA/PROSTSPECAG SCRN; Future * Carmen Álvarez LPN - 08/19/2022 10:29 AM EDT Patient is in office today for 6 month exam. Patient stated that he is currently experiencing nasalcongestion. Patient stated when he bends over he is experiencing dizziness. Denies fever and cough.Patient denies taking Covid test. Carmen Álvarez LPN August 19, 2022 10:37 AM documented in this encounterAdena Health System08-15-2022 Miscellaneous Notes* Telephone Encounter - Brittany Coleman MA - 01/19/2022 10:35 AM EDT Patient has been identified by name and date of : Yes Requested Prescriptions Pending Prescriptions Disp Refills BREO ELLIPTA 100-25 mcg/dose inhaler 1 Each 11 Sig: Inhale 100 Inhalation as instructed once daily. Inhale 1 puff once daily RX INSTRUCTIONS: Patient aware RX will be sent to pharmacy. No need to nofity patient. Controlled medication - must be call in. Brittany Coleman MA documented in this encounterAdena Health System08-15-2022 History of Present illness Narrative* Maribell Spence MD - 01/19/2022 10:33 AM EDT This note was created using [employer]. Subjective Eduard Russell is a 76 year old male who presents today for Medicare annual wellness exam. Review of Systems Constitutional: Negative. HENT: Negative. Eyes: Negative. Respiratory: Negative. Cardiovascular: Negative. Gastrointestinal: Negative. Endocrine: Negative. Genitourinary: Negative. Musculoskeletal: Negative. Skin: Negative. Allergic/Immunologic: Negative. Neurological: Negative. Hematological: Negative. Psychiatric/Behavioral: Negative. Objective BP 138/84 (BP Site: Left Arm, BP Position: Sitting, BP Cuff Size: Large Adult) Pulse 84 Temp 36.6 C (97.8 F) (Temporal) Resp 18 Ht 188 cm (6' 2") Wt 102 kg (224 lb 12.8 oz) SpO2 95% BMI28.86 kg/m Physical Exam Vitals reviewed. Constitutional: Appearance: Normal appearance. HENT: Head: Normocephalic and atraumatic. Nose: Nose normal. Eyes: Extraocular Movements: Extraocular movements intact. Pupils: Pupils are equal, round, and reactive to light. Cardiovascular: Rate and Rhythm: Normal rate and regular rhythm. Pulmonary: Effort: Pulmonary effort is normal. Breath sounds: Normal breath sounds. Abdominal: General: Bowel sounds are normal. Palpations: Abdomen is soft. Musculoskeletal: General: Normal range of motion. Cervical back: Normal range of motion and neck supple. Skin: General: Skin is warm and dry. Capillary Refill: Capillary refill takes less than 2 seconds. Neurological: General: No focal deficit present. Mental Status: He is alert and oriented to person, place, and time. Mental status is at baseline. Psychiatric: Mood and Affect: Mood normal. Behavior: Behavior normal. Assessment and Plan Eduard was seen today for medicare wellness exam. Diagnoses and all orders for this visit: Wellness examination - CBC + DIFF; Future - COMP METABOLIC PANEL; Future Graves disease - methIMAzole (TAPAZOLE) 5 mg tablet; Take 1 tablet by mouth every other day. Lipid screening - LIPID PANEL BASIC; Future Screening PSA (prostate specific antigen) - PSA/PROSTSPECAG SCRN; Future Screening for deficiency anemia - CBC + DIFF; Future Other orders - Discontinue: fluticasone-salmeterol (ADVAIR, WIXELA) 250-50 mcg/dose inhaler; Inhale 1 Puff as instructed twice daily. * Carmen Álvarez LPN - 01/19/2022 9:33 AM EDT Medicare Yearly Visit Current Outpatient Medications Medication Sig metHIMazole (TAPAZOLE) 5 mg tablet Take 1 tablet by mouth every other day. fluticasone-salmeterol (ADVAIR, WIXELA) 250-50 mcg/dose inhaler Inhale 1 Puff as instructed twice daily. levalbuterol 0.31 mg/3 mL INHALATION nebulizer solution Use 1 Ampule via nebulizer every 4 hours asneeded. No current facility-administered medications for this visit. Medications reviewed: Yes Eduard gets minimal exercise. He watches his diet for sodium, low fat and low cholesterol most ofthe time, . End of Live Planning discussed including patients advanced directive wishes: No I am willing to follow Eduard advanced directives. Depression screen He in the past two weeks denies having felt down, depressed, hopeless, or with little interest or pleasure in doing things. Functional Ability/Safety Screen 1. Was the patient's timed Up and Go test unsteady or longer than 30 seconds? 2. Does the patient need help with the phone, transportation, shopping,preparing meals, housework, laundry, medications or managing money? No 3. Does your home have rungs in the hallway, lack of grab bars in the bathroom, lack of handrails on the stairs or have poor lighting? Yes BP 138/84 Pulse 84 Temp (Src) 97.8 (Temporal) Resp 18 Ht 6' 2" (1.88m) Wt 224 lb 12.8 oz (102.0kg) SpO2 95% BMI 28.85 kg/(m^2). Maribell Spence [facility] Diagnosis Wellness examination- Primary Graves disease Toxic diffuse goiter without mention of thyrotoxic crisis or storm Lipid screening Screening for lipoid disorders Screening PSA (prostate specific antigen) Special screening for malignant neoplasm of prostate Screening for deficiency anemia Screening for other and unspecified deficiency anemia documented in this [facility]* Diagnosis Chronic obstructive pulmonary disease, unspecified COPD type (HCC)- Primary Graves disease Toxic diffuse goiter without mention of thyrotoxic crisis or storm Wellness examination Lipid screening Screening for lipoid disorders Screening for deficiency anemia Screening for other and unspecified deficiency anemia Screening PSA (prostate specific antigen) Special screening for malignant neoplasm of prostate documented in this encounter [facility] note* Diagnosis Wellness examination- Primary Counseling regarding advance directives and goals of care Encounter for screening for depression Lipid screening Screening for lipoid disorders Screening for deficiency anemia Screening for other and unspecified deficiency anemia Screening PSA (prostate specific antigen) Special screening for malignant neoplasm of prostate Tobacco dependence Tobacco use disorder Graves disease Toxic diffuse goiter without mention of thyrotoxic crisis or storm documented in this encounter [facility]* Diagnosis Lipid screening- Primary Screening for lipoid disorders Chronic obstructive pulmonary disease, unspecified COPD type (HCC) Wellness examination Screening PSA (prostate specific antigen) Special screening for malignant neoplasm of prostate Screening for deficiency anemia Screening for other and unspecified deficiency anemia Tobacco abuse Tobacco use disorder documented in this encounter [facility] note* Diagnosis Onset Date Resolution Status Admit Date COPD exacerbation resolved August 072024 3:49pm [facility] Work Phone: Evaluation note* Diagnosis Chronic obstructive pulmonary disease, unspecified COPD type (HCC)- Primary Pleural effusion Unspecified pleural effusion [facility]* Cardiovascular/Thoracic Surgery Location: None Selected [facility] Work Phone: Reason for referral (narrative)No reason for referral information availableWTriHealth [facility] Work Phone: Summary Purpose Family History No Family History Records Found Relationship Condition Age at Onset Recorded Date/T lucio mother Malignant neoplasm of colon Unknown sister Malignant neoplasm of colon Unknown Advance Directives No Advanced Directives Records Found Advance Directive Response Recorded Date/ Time Living Will No September 03, 2024 1:19pm Do you have a Healthcare Power of Relief Pilot? No September 03, 2024 1:19pm Advance Directive Response Recorded Date/ Time Living Will No September 03, 2024 4:21pm Do you have a Healthcare Power of Relief Pilot? No September 03, 2024 4:21pm Advance Directive Response Recorded Date/ Time Do you have a Healthcare Power of Relief Pilot? No October 23, 2024 10:33am Living Will No September 03, 2024 4:21pm Do you have a Healthcare Power of Relief Pilot? No September 03, 2024 4:21pm Advance Directive Response Recorded Date/ Time Do you have a Healthcare Power of Relief Pilot? No October 23, 2024 3:25pm Living Will No September 03, 2024 4:21pm Do you have a Healthcare Power of Relief Pilot? No September 03, 2024 4:21pm Advance Directive Response Recorded Date/ Time Do you have a Healthcare Power of Relief Pilot? No October 23, 2024 3:25pm Chief Complaint and Reason for Visit Chief Complaint Admit Date COPD EXACERBATION, HYPOXIA September 03, 2 025 3:49pm Reason for Visit Admit Date COPD exacerbation September 03, 2024 3:4 9pm Chief Complaint Admit Date COPD EXACERBATION, HYPOXIA September 03, 2 025 3:49pm COPD EXACERBATION, HYPOXIA September 04 2 025 11:41am COPD EXACERBATION, HYPOXIA September 05 8:14am COPD EXACERBATION, HYPOXIA September 06 10:41am Chief Complaint Admit Date COPD EXACERBATION, HYPOXIA September 03, 2 025 3:49pm COPD EXACERBATION, HYPOXIA September 04 2 025 11:41am COPD EXACERBATION, HYPOXIA September 05 8:14am COPD EXACERBATION, HYPOXIA September 06 10:41am [facility] FU September 18, 2024 1:2 0pm effusion September 19, 2024 1:2 9pm Reason for Visit Admit Date COPD exacerbation September 03, 2024 3:4 9pm Abnormal craving September 18, 2024 1:2 0pm Moderate sized pleural effusion September 182024 1:20pm Decreased energy September 18, 2024 1:2 0pm Acute hypoxic respiratory failure September 18, 2024 1:20pm COPD (chronic obstructive pulmonary dise ase) September 18, 2024 1:20pm Hospital discharge follow-up September 18, 2024 1:20pm Chief Complaint Admit Date COPD EXACERBATION, HYPOXIA September 03, 2 025 3:49pm COPD EXACERBATION, HYPOXIA September 04, 2 025 11:41am COPD EXACERBATION, HYPOXIA September 05 8:14am COPD EXACERBATION, HYPOXIA September 06 10:41am [facility] FU September 18, 2024 1:2 0pm effusion September 19, 2024 1:2 9pm ACUTE HYPOXIC RESPIRATORY FAILURE, PLEUR AL EFFUSIO October 23, 2024 2:14pm Chief Complaint Admit Date COPD EXACERBATION, HYPOXIA September 03, 2 025 3:49pm COPD EXACERBATION, HYPOXIA September 04, 2 025 11:41am COPD EXACERBATION, HYPOXIA September 05 8:14am COPD EXACERBATION, HYPOXIA September 06 10:41am [facility] FU September 18, 2024 1:2 0pm effusion September 19, 2024 1:2 9pm ACUTE HYPOXIC RESPIRATORY FAILURE, PLEUR AL EFFUSIO October 23, 2024 2:14pm ACUTE HYPOXIC RESPIRATORY FAILURE, PLEUR AL EFFUSIO October 23, 2024 7:34pm Reason for Visit Admit Date COPD exacerbation September 03, 2024 3:4 9pm Abnormal craving September 18, 2024 1:2 0pm Moderate sized pleural effusion September 182024 1:20pm Decreased energy September 18, 2024 1:2 0pm Acute hypoxic respiratory failure September 18, 2024 1:20pm COPD (chronic obstructive pulmonary dise ase) September 18, 2024 1:20pm Hospital discharge follow-up September 18, 2024 1:20pm Hypoxia October 23, 2024 2:14p m Chief Complaint Admit Date COPD EXACERBATION, HYPOXIA September 03, 2 025 3:49pm COPD EXACERBATION, HYPOXIA September 04 2 025 11:41am COPD EXACERBATION, HYPOXIA September 05 8:14am COPD EXACERBATION, HYPOXIA September 06 10:41am [facility] FU September 18, 2024 1:2 0pm effusion September 19, 2024 1:2 9pm ACUTE HYPOXIC RESPIRATORY FAILURE, PLEUR AL EFFUSIO October 23, 2024 2:14pm ACUTE HYPOXIC RESPIRATORY FAILURE, PLEUR AL EFFUSIO October 23, 2024 7:34pm ACUTE HYPOXIC RESPIRATORY FAILURE, PLEUR AL EFFUSIO October 24, 2024 5:01pm Hospital FU November 02, 2024 10:24 am Reason for Visit Admit Date COPD exacerbation September 03, 2024 3:4 9pm Abnormal craving September 18, 2024 1:2 0pm Moderate sized pleural effusion September 182024 1:20pm Decreased energy September 18, 2024 1:2 0pm Acute hypoxic respiratory failure September 18, 2024 1:20pm COPD (chronic obstructive pulmonary dise ase) September 18, 2024 1:20pm Hospital discharge follow-up September 18, 2024 1:20pm Hypoxia October 23, 2024 2:14p m Bilateral pleural effusion November 02 10:24am COPD (chronic obstructive pulmonary dise ase) November 02, 2024 10:24am Chief Complaint Admit Date COPD EXACERBATION, HYPOXIA September 03, 025 3:49pm COPD EXACERBATION, HYPOXIA September 04 025 11:41am COPD EXACERBATION, HYPOXIA September 05 8:14am COPD EXACERBATION, HYPOXIA September 06 10:41am [facility] September 18, 2024 1:2 0pm effusion September 19, 2024 1:2 9pm ACUTE HYPOXIC RESPIRATORY FAILURE, PLEUR AL EFFUSIO October 23, 2024 2:14pm ACUTE HYPOXIC RESPIRATORY FAILURE, PLEUR AL EFFUSIO October 23, 2024 7:34pm ACUTE HYPOXIC RESPIRATORY FAILURE, PLEUR AL EFFUSIO October 24, 2024 5:01pm Hospital FU November 02, 2024 10:24 am [facility] November 02, 2024 11:34 am ENLARGING LEFT PLEURAL EFFUSION November 8:13am Chief Complaint Admit Date COPD EXACERBATION, HYPOXIA September 03, 2 025 3:49pm COPD EXACERBATION, HYPOXIA September 04 025 11:41am COPD EXACERBATION, HYPOXIA September 05 8:14am COPD EXACERBATION, HYPOXIA September 06 10:41am [facility] FU September 18, 2024 1:2 0pm effusion September 19, 2024 1:2 9pm ACUTE HYPOXIC RESPIRATORY FAILURE, PLEUR AL EFFUSIO October 23, 2024 2:14pm ACUTE HYPOXIC RESPIRATORY FAILURE, PLEUR AL EFFUSIO October 23, 2024 7:34pm ACUTE HYPOXIC RESPIRATORY FAILURE, PLEUR AL EFFUSIO October 24, 2024 5:01pm Hospital FU November 02, 2024 10:24 am [facility] November 02, 2024 11:34 am ENLARGING LEFT PLEURAL EFFUSION November 8:13am LT PLEURAL EFFUSION November 16, 2024 1:15 pm Reason for Visit Admit Date COPD exacerbation September 03, 2024 3:4 9pm Abnormal craving September 18, 2024 1:2 0pm Moderate sized pleural effusion September 182024 1:20pm Decreased energy September 18, 2024 1:2 0pm Acute hypoxic respiratory failure September 18, 2024 1:20pm COPD (chronic obstructive pulmonary dise ase) September 18, 2024 1:20pm Hospital discharge follow-up September 18, 2024 1:20pm Hypoxia October 23, 2024 2:14p m Bilateral pleural effusion November 02 10:24am COPD (chronic obstructive pulmonary dise ase) November 02, 2024 10:24am Pleural effusion, right November 16, 2024 1:15pm Bilateral pleural effusion November 16 1:15pm Chief Complaint Admit Date COPD EXACERBATION, HYPOXIA September 03, 2 025 3:49pm COPD EXACERBATION, HYPOXIA September 04, 2 025 11:41am COPD EXACERBATION, HYPOXIA September 05 8:14am COPD EXACERBATION, HYPOXIA September 06 10:41am [facility] FU September 18, 2024 1:2 0pm effusion September 19, 2024 1:2 9pm ACUTE HYPOXIC RESPIRATORY FAILURE, PLEUR AL EFFUSIO October 23, 2024 2:14pm ACUTE HYPOXIC RESPIRATORY FAILURE, PLEUR AL EFFUSIO October 23, 2024 7:34pm ACUTE HYPOXIC RESPIRATORY FAILURE, PLEUR AL EFFUSIO October 24, 2024 5:01pm Hospital FU November 02, 2024 10:24 am E[facility] November 02, 2024 11:34 am ENLARGING LEFT PLEURAL EFFUSION November 8:13am LT PLEURAL EFFUSION November 16, 2024 1:15 pm J44.9 - Chronic obstructive pulmonary di sease, uns November 24, 2024 10:05am J44.9 - Chronic obstructive pulmonary di sease, uns November 27, 2024 11:47am J44.9 - Chronic obstructive pulmonary di sease, uns November 28, 2024 11:06am J44.9 - Chronic obstructive pulmonary di sease, uns November 30, 2024 10:10am Reason for Visit Admit Date COPD exacerbation September 03, 2024 3:4 9pm Abnormal craving September 18, 2024 1:2 0pm Moderate sized pleural effusion September 182024 1:20pm Decreased energy September 18, 2024 1:2 0pm Acute hypoxic respiratory failure September 18, 2024 1:20pm COPD (chronic obstructive pulmonary dise ase) September 18, 2024 1:20pm Hospital discharge follow-up September 18, 2024 1:20pm Hypoxia October 23, 2024 2:14p m Bilateral pleural effusion November 02 10:24am COPD (chronic obstructive pulmonary dise ase) November 02, 2024 10:24am Pleural effusion, right November 16, 2024 1:15pm Bilateral pleural effusion November 16 1:15pm Bilateral pleural effusion November 24 10:05am Chief Complaint Admit Date COPD EXACERBATION, HYPOXIA September 03, 2 025 3:49pm COPD EXACERBATION, HYPOXIA September 04, 2 025 11:41am COPD EXACERBATION, HYPOXIA September 05 8:14am COPD EXACERBATION, HYPOXIA September 06 10:41am [facility] FU September 18, 2024 1:2 0pm effusion September 19, 2024 1:2 9pm ACUTE HYPOXIC RESPIRATORY FAILURE, PLEUR AL EFFUSIO October 23, 2024 2:14pm ACUTE HYPOXIC RESPIRATORY FAILURE, PLEUR AL EFFUSIO October 23, 2024 7:34pm ACUTE HYPOXIC RESPIRATORY FAILURE, PLEUR AL EFFUSIO October 24, 2024 5:01pm Hospital FU November 02, 2024 10:24 am EORDERS November 02, 2024 11:34 am ENLARGING LEFT PLEURAL EFFUSION November 8:13am LT PLEURAL EFFUSION November 16, 2024 1:15 pm J44.9 - Chronic obstructive pulmonary di sease, uns November 24, 2024 10:05am J44.9 - Chronic obstructive pulmonary di sease, uns November 27, 2024 11:47am J44.9 - Chronic obstructive pulmonary di sease, uns November 28, 2024 11:06am J44.9 - Chronic obstructive pulmonary di sease, uns November 30, 2024 10:10am 6 wk FU December 05, 2024 10:27 am Reason for Visit Admit Date COPD exacerbation September 03, 2024 3:4 9pm Abnormal craving September 18, 2024 1:2 0pm Moderate sized pleural effusion September 182024 1:20pm Decreased energy September 18, 2024 1:2 0pm Acute hypoxic respiratory failure September 18, 2024 1:20pm COPD (chronic obstructive pulmonary dise ase) September 18, 2024 1:20pm Hospital discharge follow-up September 18, 2024 1:20pm Hypoxia October 23, 2024 2:14p m Bilateral pleural effusion November 02 10:24am COPD (chronic obstructive pulmonary dise ase) November 02, 2024 10:24am Pleural effusion, right November 16, 2024 1:15pm Bilateral pleural effusion November 16 1:15pm Bilateral pleural effusion November 24 10:05am Acute hypoxic respiratory failure December 052024 10:27am Bilateral pleural effusion December 05 10:27am COPD (chronic obstructive pulmonary dise ase) December 05, 2024 10:27am Chief Complaint Admit Date COPD EXACERBATION, HYPOXIA September 03, 2 025 3:49pm COPD EXACERBATION, HYPOXIA September 04, 2 025 11:41am COPD EXACERBATION, HYPOXIA September 05 8:14am COPD EXACERBATION, HYPOXIA September 06 10:41am [facility] FU September 18, 2024 1:2 0pm effusion September 19, 2024 1:2 9pm ACUTE HYPOXIC RESPIRATORY FAILURE, PLEUR AL EFFUSIO October 23, 2024 2:14pm ACUTE HYPOXIC RESPIRATORY FAILURE, PLEUR AL EFFUSIO October 23, 2024 7:34pm ACUTE HYPOXIC RESPIRATORY FAILURE, PLEUR AL EFFUSIO October 24, 2024 5:01pm Hospital FU November 02, 2024 10:24 am EORDERS November 02, 2024 11:34 am ENLARGING LEFT PLEURAL EFFUSION November 8:13am LT PLEURAL EFFUSION November 16, 2024 1:15 pm LT PLEURAL EFFUSION November 16, 2024 2:15 pm J44.9 - Chronic obstructive pulmonary di sease, uns November 24, 2024 10:05am J44.9 - Chronic obstructive pulmonary di sease, uns November 24, 2024 2:03pm J44.9 - Chronic obstructive pulmonary di sease, uns November 27, 2024 11:47am J44.9 - Chronic obstructive pulmonary di sease, uns November 28, 2024 11:06am J44.9 - Chronic obstructive pulmonary di sease, uns November 30, 2024 10:10am 6 wk December 05, 2024 10:27 am RECURRENT PLEURAL EFFUSION BILATERAL Dec 11:50am Chief Complaint Admit Date COPD EXACERBATION, HYPOXIA September 03 025 3:49pm COPD EXACERBATION, HYPOXIA September 04 025 11:41am COPD EXACERBATION, HYPOXIA September 05 8:14am COPD EXACERBATION, HYPOXIA September 06 10:41am [facility] FU September 18, 2024 1:2 0pm effusion September 19, 2024 1:2 9pm ACUTE HYPOXIC RESPIRATORY FAILURE, PLEUR AL EFFUSIO October 23, 2024 2:14pm ACUTE HYPOXIC RESPIRATORY FAILURE, PLEUR AL EFFUSIO October 23, 2024 7:34pm ACUTE HYPOXIC RESPIRATORY FAILURE, PLEUR AL EFFUSIO October 24, 2024 5:01pm Hospital FU November 02, 2024 10:24 am EORDERS November 02, 2024 11:34 am ENLARGING LEFT PLEURAL EFFUSION November 8:13am LT PLEURAL EFFUSION November 16, 2024 1:15 pm LT PLEURAL EFFUSION November 16, 2024 2:15 pm J44.9 - Chronic obstructive pulmonary di sease, uns November 24, 2024 10:05am J44.9 - Chronic obstructive pulmonary di sease, uns November 24, 2024 2:03pm J44.9 - Chronic obstructive pulmonary di sease, uns November 27, 2024 11:47am J44.9 - Chronic obstructive pulmonary di sease, uns November 28, 2024 11:06am J44.9 - Chronic obstructive pulmonary di sease, uns November 30, 2024 10:10am 6 wk December 05, 2024 10:27 am RECURRENT PLEURAL EFFUSION BILATERAL Dec 11:50am RECURRENT PLEURAL EFFUSION BILATERAL Dec 8:22am 6 M FU December 21, 2024 10:1 9am Reason for Visit Admit Date COPD exacerbation September 03, 2024 3:4 9pm Abnormal craving September 18, 2024 1:2 0pm Moderate sized pleural effusion September 182024 1:20pm Decreased energy September 18, 2024 1:2 0pm Acute hypoxic respiratory failure September 18, 2024 1:20pm COPD (chronic obstructive pulmonary dise ase) September 18, 2024 1:20pm Hospital discharge follow-up September 18, 2024 1:20pm Hypoxia October 23, 2024 2:14p m Bilateral pleural effusion November 02 10:24am COPD (chronic obstructive pulmonary dise ase) November 02, 2024 10:24am Pleural effusion, right November 16, 2024 1:15pm Bilateral pleural effusion November 16 1:15pm Bilateral pleural effusion November 24 10:05am Acute hypoxic respiratory failure December 052024 10:27am Bilateral pleural effusion December 05 10:27am COPD (chronic obstructive pulmonary dise ase) December 05, 2024 10:27am Immunization due December 21, 2024 10:1 9am Chronic respiratory failure December 21, 025 10:19am Hyperthyroidism December 21, 2024 10:1 9am COPD (chronic obstructive pulmonary dise ase) December 21, 2024 10:19am Moderate sized pleural effusion December 10:19am Acute hypoxic respiratory failure December 052024 10:19am Reason for Visit Admit Date COPD exacerbation September 03, 2024 3:4 9pm Abnormal craving September 18, 2024 1:2 0pm Moderate sized pleural effusion September 182024 1:20pm Decreased energy September 18, 2024 1:2 0pm Acute hypoxic respiratory failure September 18, 2024 1:20pm COPD (chronic obstructive pulmonary dise ase) September 18, 2024 1:20pm Hospital discharge follow-up September 18, 2024 1:20pm Hypoxia October 23, 2024 2:14p m Bilateral pleural effusion November 02 10:24am COPD (chronic obstructive pulmonary dise ase) November 02, 2024 10:24am Pleural effusion, right November 16, 2024 1:15pm Bilateral pleural effusion November 16 1:15pm Bilateral pleural effusion November 24 10:05am Acute hypoxic respiratory failure December 052024 10:27am Bilateral pleural effusion December 05 10:27am COPD (chronic obstructive pulmonary dise ase) December 05, 2024 10:27am Immunization due December 21, 2024 10:1 9am Chronic respiratory failure December 21, 025 10:19am Hyperthyroidism December 21, 2024 10:1 9am COPD (chronic obstructive pulmonary dise ase) December 21, 2024 10:19am Recurrent pleural effusion December 21 10:19am Quit smoking December 21, 2024 10:1 9am Chief Complaint Admit Date [facility] FU September 18, 2024 1:2 0pm effusion September 19, 2024 1:2 9pm ACUTE HYPOXIC RESPIRATORY FAILURE, PLEUR AL EFFUSIO October 23, 2024 2:14pm ACUTE HYPOXIC RESPIRATORY FAILURE, PLEUR AL EFFUSIO October 23, 2024 7:34pm ACUTE HYPOXIC RESPIRATORY FAILURE, PLEUR AL EFFUSIO October 24, 2024 5:01pm Hospital FU November 02, 2024 10:24 am EORDERS November 02, 2024 11:34 am ENLARGING LEFT PLEURAL EFFUSION November 8:13am LT PLEURAL EFFUSION November 16, 2024 1:15 pm LT PLEURAL EFFUSION November 16, 2024 2:15 pm J44.9 - Chronic obstructive pulmonary di sease, uns November 24, 2024 10:05am J44.9 - Chronic obstructive pulmonary di sease, uns November 24, 2024 2:03pm J44.9 - Chronic obstructive pulmonary di sease, uns November 27, 2024 11:47am J44.9 - Chronic obstructive pulmonary di sease, uns November 28, 2024 11:06am J44.9 - Chronic obstructive pulmonary di sease, uns November 30, 2024 10:10am 6 wk FU December 05, 2024 10:27 am RECURRENT PLEURAL EFFUSION BILATERAL Dec 11:50am RECURRENT PLEURAL EFFUSION BILATERAL Dec 8:22am 6 M FU December 21, 2024 10:1 9am Reason for Visit Admit Date Abnormal craving September 18, 2024 1:2 0pm Moderate sized pleural effusion September 182024 1:20pm Decreased energy September 18, 2024 1:2 0pm Acute hypoxic respiratory failure September 18, 2024 1:20pm COPD (chronic obstructive pulmonary dise ase) September 18, 2024 1:20pm Hospital discharge follow-up September 18, 2024 1:20pm Hypoxia October 23, 2024 2:14p m Bilateral pleural effusion November 02 10:24am COPD (chronic obstructive pulmonary dise ase) November 02, 2024 10:24am Pleural effusion, right November 16, 2024 1:15pm Bilateral pleural effusion November 16 1:15pm Bilateral pleural effusion November 24 10:05am Acute hypoxic respiratory failure December 052024 10:27am Bilateral pleural effusion December 05 10:27am COPD (chronic obstructive pulmonary dise ase) December 05, 2024 10:27am Immunization due December 21, 2024 10:1 9am Chronic respiratory failure December 21, 025 10:19am Hyperthyroidism December 21, 2024 10:1 9am COPD (chronic obstructive pulmonary dise ase) December 21, 2024 10:19am Recurrent pleural effusion December 21 10:19am Quit smoking December 21, 2024 10:1 9am Chief Complaint Admit Date ACUTE HYPOXIC RESPIRATORY FAILURE, PLEUR AL EFFUSIO October 23, 2024 2:14pm ACUTE HYPOXIC RESPIRATORY FAILURE, PLEUR AL EFFUSIO October 23, 2024 7:34pm ACUTE HYPOXIC RESPIRATORY FAILURE, PLEUR AL EFFUSIO October 24, 2024 5:01pm Hospital FU November 02, 2024 10:24 am EORDERS November 02, 2024 11:34 am ENLARGING LEFT PLEURAL EFFUSION November 8:13am LT PLEURAL EFFUSION November 16, 2024 1:15 pm LT PLEURAL EFFUSION November 16, 2024 2:15 pm J44.9 - Chronic obstructive pulmonary di sease, uns November 24, 2024 10:05am J44.9 - Chronic obstructive pulmonary di sease, uns November 24, 2024 2:03pm J44.9 - Chronic obstructive pulmonary di sease, uns November 27, 2024 11:47am J44.9 - Chronic obstructive pulmonary di sease, uns November 28, 2024 11:06am J44.9 - Chronic obstructive pulmonary di sease, uns November 30, 2024 10:10am 6 wk FU December 05, 2024 10:27 am RECURRENT PLEURAL EFFUSION BILATERAL Adin 2024 11:50am RECURRENT PLEURAL EFFUSION BILATERAL Dec 8:22am 6 M FU December 21, 2024 10:1 9am PROCEDURE January 19, 2025 11 :49am Reason for Visit Admit Date Hypoxia October 23, 2024 2:14p m Bilateral pleural effusion November 02 10:24am COPD (chronic obstructive pulmonary dise ase) November 02, 2024 10:24am Pleural effusion, right November 16, 2024 1:15pm Bilateral pleural effusion November 16 1:15pm Bilateral pleural effusion November 24 10:05am Acute hypoxic respiratory failure December 052024 10:27am Bilateral pleural effusion December 05 10:27am COPD (chronic obstructive pulmonary dise ase) December 05, 2024 10:27am Immunization due December 21, 2024 10:1 9am Chronic respiratory failure December 21, 025 10:19am Hyperthyroidism December 21, 2024 10:1 9am COPD (chronic obstructive pulmonary dise ase) December 21, 2024 10:19am Recurrent pleural effusion December 21 10:19am Quit smoking December 21, 2024 10:1 9am Chief Complaint Admit Date LT PLEURAL EFFUSION November 16, 2024 1:15 pm LT PLEURAL EFFUSION November 16, 2024 2:15 pm J44.9 - Chronic obstructive pulmonary di sease, uns November 24, 2024 10:05am J44.9 - Chronic obstructive pulmonary di sease, uns November 24, 2024 2:03pm J44.9 - Chronic obstructive pulmonary di sease, uns November 27, 2024 11:47am J44.9 - Chronic obstructive pulmonary di sease, uns November 28, 2024 11:06am J44.9 - Chronic obstructive pulmonary di sease, uns November 30, 2024 10:10am 6 wk FU December 05, 2024 10:27 am RECURRENT PLEURAL EFFUSION BILATERAL Dec 11:50am RECURRENT PLEURAL EFFUSION BILATERAL Dec 8:22am 6 M FU December 21, 2024 10:1 9am PROCEDURE January 19, 2025 11 :49am PLEURAL EFFUSION March 02, 2025 11:30am Reason for Visit Admit Date Pleural effusion, right November 16, 2024 1:15pm Bilateral pleural effusion November 16 1:15pm Bilateral pleural effusion November 24 10:05am Acute hypoxic respiratory failure December 052024 10:27am Bilateral pleural effusion December 05 10:27am COPD (chronic obstructive pulmonary dise ase) December 05, 2024 10:27am Immunization due December 21, 2024 10:1 9am Chronic respiratory failure December 21, 025 10:19am Hyperthyroidism December 21, 2024 10:1 9am COPD (chronic obstructive pulmonary dise ase) December 21, 2024 10:19am Recurrent pleural effusion December 21 10:19am Quit smoking December 21, 2024 10:1 9am Additional Source Comments (unrecognized sect ion and content) No Status Records FoundNo Status Records FoundNo Status Records FoundNo Status Records FoundNo Status Records Found INFORMATION SOURCE (unrecogn ized section and content) DATE CREATED AUTHOR 12/23/2018 [facility] [place] DATE CREATED AUTHOR AUTHOR'S ORGANIZ ATION 07/05/2019 [facility] DATE CREATED AUTHOR AUTHOR'S ORGANIZ ATION 09/23/2023 [facility] DATE CREATED AUTHOR AUTHOR'S ORGANIZ ATION 02/28/2025 [facility] DATE CREATED AUTHOR AUTHOR'S ORGANIZ ATION 03/19/2025 [facility] Source Comments (unrecognize d section and content) In the event this informatio n is protected by the Federal Confidentiality of Alcohol and Drug Abuse Patient Records regulations: The Federal rules restrict any use of the information to criminally investigate or prosecute any alcohol or drug abuse patient.[facility] the event this information is protected by the Federal Confidentiality of Alcohol and Drug Abuse Patient Records regulations: The Federal rules restrict any use of the information to criminally investigate or prosecute any alcohol or drug abuse patient.[facility] System[facility] the event this information is protected by the Federal Confidentiality of Alcohol and Drug Abuse Patient Records regulations: The Federal rules restrict any use of the information to criminally investigate or prosecute any alcohol or drug abuse patient.[facility] System[facility] the event this information is protected by the Federal Confidentiality of Alcohol and Drug Abuse Patient Records regulations: The Federal rules restrict any use of the information to criminally investigate or prosecute any alcohol or drug abuse patient.[facility] System[facility] the event this information is protected by the Federal Confidentiality of Alcohol and Drug Abuse Patient Records regulations: The Federal rules restrict any use of the information to criminally investigate or prosecute any alcohol or drug abuse patient.[facility] System[facility] the event this information is protected by the Federal Confidentiality of Alcohol and Drug Abuse Patient Records regulations: The Federal rules restrict any use of the information to criminally investigate or prosecute any alcohol or drug abuse patient.[facility] System[facility] the event this information is protected by the Federal Confidentiality of Alcohol and Drug Abuse Patient Records regulations: The Federal rules restrict any use of the information to criminally investigate or prosecute any alcohol or drug abuse patient.[facility] System[facility] the event this information is protected by the Federal Confidentiality of Alcohol and Drug Abuse Patient Records regulations: The Federal rules restrict any use of the information to criminally investigate or prosecute any alcohol or drug abuse patient.[facility] SystemIn the event this information is protected by the Federal Confidentiality of Alcohol and Drug Abuse Patient Records regulations: The Federal rules restrict any use of the information to criminally investigate or prosecute any alcohol or drug abuse patient.[facility] SystemIn the event this information is protected by the Federal Confidentiality of Alcohol and Drug Abuse Patient Records regulations: The Federal rules restrict any use of the information to criminally investigate or prosecute any alcohol or drug abuse patient.[facility] SystemIn the event this information is protected by the Federal Confidentiality of Alcohol and Drug Abuse Patient Records regulations: The Federal rules restrict any use of the information to criminally investigate or prosecute any alcohol or drug abuse patient.[facility] SystemIn the event this information is protected by the Federal Confidentiality of Alcohol and Drug Abuse Patient Records regulations: The Federal rules restrict any use of the information to criminally investigate or prosecute any alcohol or drug abuse patient.[facility] SystemIn the event this information is protected by the Federal Confidentiality of Alcohol and Drug Abuse Patient Records regulations: The Federal rules restrict any use of the information to criminally investigate or prosecute any alcohol or drug abuse patient.[facility] Care Teams (unrecognized sec tion and content) Team Status: Active Member Role Status Dates Dr. Thiago Morgan MD Primary Care Provider Active Team Status: Inactive Member Role Status Dates Dr. Thiago Morgan MD Primary Care Provider Active Start: September 03, 2024 End: September 06, 2024 Dr. Dano Shea DO Emergency Provider Active Start: September 03, 2024 End: September 06, 2024 Dr. Vibha Matias MD Admit Provider Active Star t: September 03, 2024 End: September 06, 2024 Dr. Vibha Matias MD Other Provider Active Star t: September 03, 2024 End: September 06, 2024 Dr. Ty Cunningham MD Attending Provider Active Start: September 03, 2024 End: September 06, 2024 Team Status: Active Member Role Status Dates Dr. Thiago Morgan MD Primary Care Provider Active Start: September 04, 2024 Dr. Ankit Bliss MD Attending Provider Active S tart: September 04, 2024 Team Status: Active Member Role Status Dates Dr. Thiago Morgan MD Primary Care Provider Active Start: September 04, 2024 Dr. Dano Shea DO Emergency Provider Active Start: September 04, 2024 Dr. Vibha Matias MD Admit Provider Active Star t: September 04, 2024 Dr. Vibha Matias MD Other Provider Active Star t: September 04, 2024 Dr. Ty Cunningham MD Attending Provider Active Start: September 04, 2024 Dr. Ty Cunningham MD Other Provider Active Star t: September 04, 2024 Team Status: Active Member Role Status Dates Dr. Thiago Morgan MD Primary Care Provider Active Start: September 05, 2024 Dr. Dano Shea DO Emergency Provider Active Start: September 05, 2024 Dr. Vibha Matias MD Admit Provider Active Star t: September 05, 2024 Dr. Vibha Matias MD Other Provider Active Star t: September 05, 2024 Dr. Ty Cunningham MD Attending Provider Active Start: September 05, 2024 Dr. Ty Cunningham MD Other Provider Active Star t: September 05, 2024 Team Status: Active Member Role Status Dates Dr. Thiago Morgan MD Primary Care Provider Active Start: September 06, 2024 Dr. Dano Shea DO Emergency Provider Active Start: September 06, 2024 Dr. Vibha Matias MD Admit Provider Active Star t: September 06, 2024 Dr. Vibha Matias MD Other Provider Active Star t: September 06, 2024 Dr. Ty Cunningham MD Attending Provider Active Start: September 06, 2024 Dr. Ty Cunningham MD Other Provider Active Star t: September 06, 2024 Manager Ems Relationship Specialty Start Date End Date Maribell Spence MD [address] [place] [address] PCP - General Family Practice 01/19/22 Manager Ems Relationship Specialty Start Date End Date Maribell Spence MD [address] [place] [address] PCP - General Family Practice 01/19/22 Manager Ems Relationship Specialty Start Date End Date Maribell Spence MD [address] [place] [address] PCP - General Family Practice 01/19/22 Manager Ems Relationship Specialty Start Date End Date Maribell Spence MD [address] [place] [address] PCP - General Family Medicine 01/19/22 Manager Ems Relationship Specialty Start Date End Date Maribell Spence MD [address] [place] [address] PCP - General Family Medicine 01/19/22 Manager Ems Relationship Specialty Start Date End Date Maribell Spence MD [address] [place] [address] PCP - General Family Medicine 01/19/22 Jluis Christopher [address] [place] [address] Gastroenterology 01/26/23 Manager Ems Relationship Specialty Start Date End Date Maribell Spence MD [address] [place] [address] PCP - General Family Medicine 01/19/22 Jluis Christopher MD [address] [facility] [address] [place] [address] Gastroenterology 01/26/23 Manager Ems Relationship Specialty Start Date End Date Maribell Spence MD [address] [place] [address] PCP - General Family Medicine 01/19/22 Jluis Christopher MD [address] [facility] [address] [place] [address] Gastroenterology 01/26/23 Manager Ems Relationship Specialty Start Date End Date Maribell Spence MD [address] [place] [address] PCP - General Family Medicine 01/19/22 Jluis Christopher MD [address] [facility] [address] [place] [address] Gastroenterology 01/26/23 Manager Ems Relationship Specialty Start Date End Date Maribell Spence MD [address] [place] [address] PCP - General Family Medicine 01/19/22 Jluis Christopher MD [address] [facility] [address] [place] [address] Gastroenterology 01/26/23 Team Status: Active Member Role Status Dates Dr. Thiago Morgan MD Primary Care Provider Active Start: September 03, 2024 Dr. Dano Shea , Emergency Provider Active Start: September 03, 2024 Dr. Vibha Matias MD Admit Provider Active Star t: September 03, 2024 Dr. Vibha Matias MD Attending Provider Active Start: September 03, 2024 Team Status: Inactive Member Role Status Dates Dr. Thiago Morgan MD Primary Care Provider Active Start: September 18, 2024 End: September 18, 2024 Dr. Thiago Morgan MD Attending Provider Active Start: September 18, 2024 End: September 18, 2024 Dr. Thiago Morgan MD Referring Provider Active Start: September 18, 2024 End: September 18, 2024 Team Status: Inactive Member Role Status Dates Dr. Thiago Morgan MD Primary Care Provider Active Start: September 19, 2024 End: September 19, 2024 Dr. Thiago Morgan MD Attending Provider Active Start: September 19, 2024 End: September 19, 2024 Dr. Thiago Morgan MD Referring Provider Active Start: September 19, 2024 End: September 19, 2024 Team Status: Active Member Role Status Dates Dr. Thiago Morgan MD Primary Care Provider Active Start: October 23, 2024 Dr. Cristofer Miranda DO Emergency Provider Active Start: October 23, 2024 Dr. Davis Dougherty DO Admit Provider Active S tart: October 23, 2024 Dr. Davis Dougherty DO Attending Provider Active Start: October 23, 2024 Team Status: Inactive Member Role Status Dates Dr. Thiago Morgan MD Primary Care Provider Active Start: October 23, 2024 End: October 24, 2024 Dr. Cristofer Miranda DO Emergency Provider Active Start: October 23, 2024 End: October 24, 2024 Dr. Davis Dougherty , Admit Provider Active S tart: October 23, 2024 End: October 24, 2024 Dr. Davis Dougherty , DO Attending Provider Active Start: October 23, 2024 End: October 24, 2024 Team Status: Active Member Role Status Dates Dr. Thiago Morgan MD Primary Care Provider Active Start: October 23, 2024 Dr. Cristofer Miranda , DO Emergency Provider Active Start: October 23, 2024 Dr. Davis Dougherty , DO Admit Provider Active S tart: October 23, 2024 Dr. Davis Dougherty , DO Attending Provider Active Start: October 23, 2024 Dr. Davis Dougherty , DO Other Provider Active S tart: October 23, 2024 Team Status: Active Member Role Status Dates Dr. Thiago Morgan MD Primary Care Provider Active Start: October 24, 2024 Dr. Cristofer Miranda , DO Emergency Provider Active Start: October 24, 2024 Dr. Davis Dougherty , DO Admit Provider Active S tart: October 24, 2024 Dr. Davis Dougherty , DO Attending Provider Active Start: October 24, 2024 Dr. Davis Dougherty , DO Other Provider Active S tart: October 24, 2024 Team Status: Inactive Member Role Status Dates Dr. Thiago Morgan MD Primary Care Provider Active Start: November 02, 2024 End: November 02, 2024 Dr. Thiago Morgan MD Referring Provider Active Start: November 02, 2024 End: November 02, 2024 Dr. Alejandro Pritchard , DO Attending Provider Active S tart: November 02, 2024 End: November 02, 2024 Team Status: Inactive Member Role Status Dates Dr. Thiago Morgan MD Primary Care Provider Active Start: November 02, 2024 End: November 02, 2024 Dr. Alejandro Pritchard , DO Attending Provider Active S tart: November 02, 2024 End: November 02, 2024 Dr. Alejandro Pritchard , DO Referring Provider Active S tart: November 02, 2024 End: November 02, 2024 Team Status: Active Member Role Status Dates Dr. Thigao Morgan MD Primary Care Provider Active Start: November 07, 2024 Dr. Alejandro Pritchard , DO Attending Provider Active S tart: November 07, 2024 Dr. Alejandro Pritchard , DO Referring Provider Active S tart: November 07, 2024 Team Status: Inactive Member Role Status Dates Dr. Thiago Morgan MD Primary Care Provider Active Start: November 07, 2024 End: November 07, 2024 Dr. Alejandro Pritchard DO Attending Provider Active S tart: November 07, 2024 End: November 07, 2024 Dr. Alejandro Pritchard DO Referring Provider Active S tart: November 07, 2024 End: November 07, 2024 Team Status: Inactive Member Role Status Dates Dr. Thiago Morgan MD Primary Care Provider Active Start: November 16, 2024 End: November 16, 2024 Dr. Alejandro Pritchard DO Attending Provider Active S tart: November 16, 2024 End: November 16, 2024 Dr. Alejandro Pritchard DO Referring Provider Active S tart: November 16, 2024 End: November 16, 2024 Team Status: Active Member Role/Relationship Status Dates Dr. Thiago Morgan MD Primary Care Provider Active Team Status: Inactive Member Role/Relationship Status Dates Dr. Thiago Morgan MD Primary Care Provider Active Start: September 03, 2024 End: September 06, 2024 Dr. Dano Shea DO Emergency Provider Active Start: September 03, 2024 End: September 06, 2024 Dr. Vibha Matias MD Admit Provider Active Star t: September 03, 2024 End: September 06, 2024 Dr. Vibha Matias MD Other Provider Active Star t: September 03, 2024 End: September 06, 2024 Dr. Ty Cunningham MD Attending Provider Active Start: September 03, 2024 End: September 06, 2024 Team Status: Active Member Role/Relationship Status Dates Dr. Thiago Morgan MD Primary Care Provider Active Start: September 04, 2024 Dr. Ankit Bliss MD Attending Provider Active S tart: September 04, 2024 Team Status: Active Member Role/Relationship Status Dates Dr. Thiago Morgan MD Primary Care Provider Active Start: September 04, 2024 Dr. Dano Shea DO Emergency Provider Active Start: September 04, 2024 Dr. Vibha Matias MD Admit Provider Active Star t: September 04, 2024 Dr. Vibha Matias MD Other Provider Active Star t: September 04, 2024 Dr. Ty Cunningham MD Attending Provider Active Start: September 04, 2024 Dr. Ty Cunningham MD Other Provider Active Star t: September 04, 2024 Team Status: Active Member Role/Relationship Status Dates Dr. Thiago Morgan MD Primary Care Provider Active Start: September 05, 2024 Dr. Dano Shea DO Emergency Provider Active Start: September 05, 2024 Dr. Vibha Matias MD Admit Provider Active Star t: September 05, 2024 Dr. Vibha Matias MD Other Provider Active Star t: September 05, 2024 Dr. Ty Cunningham MD Attending Provider Active Start: September 05, 2024 Dr. Ty Cunningham MD Other Provider Active Star t: September 05, 2024 Team Status: Active Member Role/Relationship Status Dates Dr. Thiago Morgan MD Primary Care Provider Active Start: September 06, 2024 Dr. Dano Shea DO Emergency Provider Active Start: September 06, 2024 Dr. Vibha Matias MD Admit Provider Active Star t: September 06, 2024 Dr. Vibha Matias MD Other Provider Active Star t: September 06, 2024 Dr. Ty Cunningham MD Attending Provider Active Start: September 06, 2024 Dr. Ty Cunningham MD Other Provider Active Star t: September 06, 2024 Team Status: Inactive Member Role/Relationship Status Dates Dr. Thiago Morgan MD Primary Care Provider Active Start: September 18, 2024 End: September 18, 2024 Dr. Thiago Morgan MD Attending Provider Active Start: September 18, 2024 End: September 18, 2024 Dr. Thiago Morgan MD Referring Provider Active Start: September 18, 2024 End: September 18, 2024 Team Status: Inactive Member Role/Relationship Status Dates Dr. Thiago Morgan MD Primary Care Provider Active Start: September 18, 2024 End: September 18, 2024 Dr. Thiago Morgan MD Attending Provider Active Start: September 18, 2024 End: September 18, 2024 Dr. Thiago Morgan MD Referring Provider Active Start: September 18, 2024 End: September 18, 2024 Team Status: Inactive Member Role/Relationship Status Dates Dr. Thiago Morgan MD Primary Care Provider Active Start: September 19, 2024 End: September 19, 2024 Dr. Thiago Morgan MD Attending Provider Active Start: September 19, 2024 End: September 19, 2024 Dr. Thiago Morgan MD Referring Provider Active Start: September 19, 2024 End: September 19, 2024 Team Status: Inactive Member Role/Relationship Status Dates Dr. Thiago Morgan MD Primary Care Provider Active Start: October 23, 2024 End: October 24, 2024 Dr. Cristofer Miranda , DO Emergency Provider Active Start: October 23, 2024 End: October 24, 2024 Dr. Davis Dougherty , DO Admit Provider Active S tart: October 23, 2024 End: October 24, 2024 Dr. Davis Dougherty , Attending Provider Active Start: October 23, 2024 End: October 24, 2024 Team Status: Active Member Role/Relationship Status Dates Dr. Thiago Morgan MD Primary Care Provider Active Start: October 23, 2024 Dr. Cristofer Miranda , Emergency Provider Active Start: October 23, 2024 Dr. Davis Dougherty , DO Admit Provider Active S tart: October 23, 2024 Dr. Davis Dougherty , Attending Provider Active Start: October 23, 2024 Dr. Davis Dougherty , DO Other Provider Active S tart: October 23, 2024 Team Status: Active Member Role/Relationship Status Dates Dr. Thiago Morgan MD Primary Care Provider Active Start: October 24, 2024 Dr. Cristofer Miranda , Emergency Provider Active Start: October 24, 2024 Dr. Davis Dougherty , DO Admit Provider Active S tart: October 24, 2024 Dr. Davis Dougherty , Attending Provider Active Start: October 24, 2024 Dr. Davis Dougherty , DO Other Provider Active S tart: October 24, 2024 Team Status: Inactive Member Role/Relationship Status Dates Dr. Thiago Morgan MD Primary Care Provider Active Start: November 02, 2024 End: November 02, 2024 Dr. Thiago Morgan MD Referring Provider Active Start: November 02, 2024 End: November 02, 2024 Dr. Alejandro Pritchard , DO Attending Provider Active S tart: November 02, 2024 End: November 02, 2024 Team Status: Inactive Member Role/Relationship Status Dates Dr. Thiago Morgan MD Primary Care Provider Active Start: November 02, 2024 End: November 02, 2024 Dr. Alejandro Pritchard , Attending Provider Active S tart: November 02, 2024 End: November 02, 2024 Dr. Alejandro Pritchard , Referring Provider Active S tart: November 02, 2024 End: November 02, 2024 Team Status: Inactive Member Role/Relationship Status Dates Dr. Thiago Morgan MD Primary Care Provider Active Start: November 07, 2024 End: November 07, 2024 Dr. Alejandro Pritchard , Attending Provider Active S tart: November 07, 2024 End: November 07, 2024 Dr. Alejandro Pritchard , Referring Provider Active S tart: November 07, 2024 End: November 07, 2024 Team Status: Inactive Member Role/Relationship Status Dates Dr. Thiago Morgan MD Primary Care Provider Active Start: November 16, 2024 End: November 16, 2024 Dr. Alejandro Pritchard DO Attending Provider Active S tart: November 16, 2024 End: November 16, 2024 Dr. Alejandro Pritchard DO Referring Provider Active S tart: November 16, 2024 End: November 16, 2024 Team Status: Inactive Member Role/Relationship Status Dates Dr. Thiago Morgan MD Primary Care Provider Active Start: November 24, 2024 End: November 24, 2024 Dr. Alejandro Pritchard DO Attending Provider Active S tart: November 24, 2024 End: November 24, 2024 Dr. Alejandro Pritchard DO Referring Provider Active S tart: November 24, 2024 End: November 24, 2024 Team Status: Active Member Role/Relationship Status Dates Dr. Thiago Morgan MD Primary Care Provider Active Start: November 27, 2024 Rhonda Taylor BOAT PULLER, BOAT PULLER-C Attending Provider Active Start: November 27, 2024 Rhonda Taylor BOAT PULLER, BOAT PULLER-C Referring Provider Active Start: November 27, 2024 Team Status: Active Member Role/Relationship Status Dates Dr. Thiago Morgan MD Primary Care Provider Active Start: November 28, 2024 Dr. Alejandro Pritchard DO Attending Provider Active S tart: November 28, 2024 Dr. Alejandro Pritchard DO Referring Provider Active S tart: November 28, 2024 Team Status: Active Member Role/Relationship Status Dates Dr. Thiago Morgan MD Primary Care Provider Active Start: November 30, 2024 Dr. Alejandro Pritchard , Attending Provider Active S tart: November 30, 2024 Dr. Alejandro Pritchard , Referring Provider Active S tart: November 30, 2024 Dr. Alejandro Pritchard , Other Provider Active Start : November 30, 2024 Team Status: Inactive Member Role/Relationship Status Dates Dr. Thiago Morgan MD Primary Care Provider Active Start: November 27, 2024 End: November 27, 2024 Rhonda Taylor BOAT PULLER, BOAT PULLER-C Attending Provider Active Start: November 27, 2024 End: November 27, 2024 Rhonda Taylor BOAT PULLER, BOAT PULLER-C Referring Provider Active Start: November 27, 2024 End: November 27, 2024 Team Status: Inactive Member Role/Relationship Status Dates Dr. Thiago Morgan MD Primary Care Provider Active Start: November 28, 2024 End: November 28, 2024 Dr. Alejandro Pritchard , Attending Provider Active S tart: November 28, 2024 End: November 28, 2024 Dr. Alejandro Pritchard , Referring Provider Active S tart: November 28, 2024 End: November 28, 2024 Team Status: Inactive Member Role/Relationship Status Dates Dr. Thiago Morgan MD Primary Care Provider Active Start: December 05, 2024 End: December 05, 2024 Dr. Thiago Morgan MD Referring Provider Active Start: December 05, 2024 End: December 05, 2024 Rhonda Taylor BOAT PULLER, BOAT PULLER-C Attending Provider Active Start: December 05, 2024 End: December 05, 2024 Team Status: Active Member Role/Relationship Status Dates Dr. Thiago Morgan MD Primary Care Provider Active Start: November 16, 2024 Dr. Alejandro Pritchard DO Referring Provider Active S tart: November 16, 2024 Dr. Alejandro Pritchard DO Other Provider Active Start : November 16, 2024 Ronel Sims NP-C Attending Provider Active S tart: November 16, 2024 Team Status: Inactive Member Role/Relationship Status Dates Dr. Thiago Morgan MD Primary Care Provider Active Start: November 24, 2024 End: November 24, 2024 Dr. Alejandro Pritchard DO Attending Provider Active S tart: November 24, 2024 End: November 24, 2024 Dr. Alejandro Pritchard DO Referring Provider Active S tart: November 24, 2024 End: November 24, 2024 Team Status: Active Member Role/Relationship Status Dates Dr. Thiago Morgan MD Primary Care Provider Active Start: November 24, 2024 Dr. Alejandro Pritchard DO Referring Provider Active S tart: November 24, 2024 Dr. Alejandro Pritchard DO Other Provider Active Start : November 24, 2024 Ronel Sims NP-C Attending Provider Active S tart: November 24, 2024 Team Status: Inactive Member Role/Relationship Status Dates Dr. Thiago Morgan MD Primary Care Provider Active Start: November 27, 2024 End: November 27, 2024 Rhonda Taylor BOAT PULLER, BOAT PULLER-C Attending Provider Active Start: November 27, 2024 End: November 27, 2024 Rhonda Taylor BOAT PULLER, BOAT PULLER-C Referring Provider Active Start: November 27, 2024 End: November 27, 2024 Team Status: Inactive Member Role/Relationship Status Dates Dr. Thiago Morgan MD Primary Care Provider Active Start: November 28, 2024 End: November 28, 2024 Dr. Alejandro Pritchard DO Attending Provider Active S tart: November 28, 2024 End: November 28, 2024 Dr. Alejandro Pritchard DO Referring Provider Active S tart: November 28, 2024 End: November 28, 2024 Team Status: Active Member Role/Relationship Status Dates Dr. Thiago Morgan MD Primary Care Provider Active Start: November 30, 2024 Dr. Alejandro Pritchard DO Attending Provider Active S tart: November 30, 2024 Dr. Alejandro Pritchard DO Referring Provider Active S tart: November 30, 2024 Dr. Alejandro Pritchard DO Other Provider Active Start : November 30, 2024 Team Status: Inactive Member Role/Relationship Status Dates Dr. Thiago Morgan MD Primary Care Provider Active Start: December 05, 2024 End: December 05, 2024 Dr. Thiago Morgan MD Referring Provider Active Start: December 05, 2024 End: December 05, 2024 Rhonda Taylor BOAT PULLER, BOAT PULLER-C Attending Provider Active Start: December 05, 2024 End: December 05, 2024 Team Status: Inactive Member Role/Relationship Status Dates Dr. Thiago Morgan MD Primary Care Provider Active Start: December 07, 2024 End: December 07, 2024 Rhonda Taylor BOAT PULLER, BOAT PULLER-C Attending Provider Active Start: December 07, 2024 End: December 07, 2024 Rhonda Taylor BOAT PULLER, BOAT PULLER-C Referring Provider Active Start: December 07, 2024 End: December 07, 2024 Team Status: Active Member Role/Relationship Status Dates Dr. Thiago Morgan MD Primary Care Provider Active Start: December 20, 2024 Rhonda Taylor BOAT PULLER, BOAT PULLER-C Attending Provider Active Start: December 20, 2024 Rhonda Taylor BOAT PULLER, BOAT PULLER-C Referring Provider Active Start: December 20, 2024 Team Status: Inactive Member Role/Relationship Status Dates Dr. Thiago Morgan MD Primary Care Provider Active Start: December 21, 2024 End: December 21, 2024 Dr. Thiago Morgan MD Attending Provider Active Start: December 21, 2024 End: December 21, 2024 Dr. Thiago Morgan MD Referring Provider Active Start: December 21, 2024 End: December 21, 2024 Team Status: Inactive Member Role/Relationship Status Dates Dr. Thiago Morgan MD Primary Care Provider Active Start: December 20, 2024 End: December 20, 2024 Rhonda Taylor BOAT PULLER, BOAT PULLER-C Attending Provider Active Start: December 20, 2024 End: December 20, 2024 Rhonda Taylor BOAT PULLER, BOAT PULLER-C Referring Provider Active Start: December 20, 2024 End: December 20, 2024 Team Status: Inactive Member Role/Relationship Status Dates Dr. Thiago Morgan MD Primary Care Provider Active Start: September 18, 2024 End: September 18, 2024 Dr. Thiago Morgan MD Attending Provider Active Start: September 18, 2024 End: September 18, 2024 Dr. Thiago Morgan MD Referring Provider Active Start: September 18, 2024 End: September 18, 2024 Team Status: Inactive Member Role/Relationship Status Dates Dr. Thiago Morgan MD Primary Care Provider Active Start: September 18, 2024 End: September 18, 2024 Dr. Thiago Morgan MD Attending Provider Active Start: September 18, 2024 End: September 18, 2024 Dr. Thiago Morgan MD Referring Provider Active Start: September 18, 2024 End: September 18, 2024 Team Status: Inactive Member Role/Relationship Status Dates Dr. Thiago Morgan MD Primary Care Provider Active Start: September 19, 2024 End: September 19, 2024 Dr. Thiago Morgan MD Attending Provider Active Start: September 19, 2024 End: September 19, 2024 Dr. Thiago Morgan MD Referring Provider Active Start: September 19, 2024 End: September 19, 2024 Team Status: Inactive Member Role/Relationship Status Dates Dr. Thiago Morgan MD Primary Care Provider Active Start: October 23, 2024 End: October 24, 2024 Dr. Cristofer Miranda , DO Emergency Provider Active Start: October 23, 2024 End: October 24, 2024 Dr. Davis Dougherty , DO Admit Provider Active S tart: October 23, 2024 End: October 24, 2024 Dr. Davis Dougherty , DO Attending Provider Active Start: October 23, 2024 End: October 24, 2024 Team Status: Active Member Role/Relationship Status Dates Dr. Thiago Morgan MD Primary Care Provider Active Start: October 23, 2024 Dr. Cristofer Miranda , DO Emergency Provider Active Start: October 23, 2024 Dr. Davis Dougherty , DO Admit Provider Active S tart: October 23, 2024 Dr. Davis Dougherty , DO Attending Provider Active Start: October 23, 2024 Dr. Davis Dougherty , DO Other Provider Active S tart: October 23, 2024 Team Status: Active Member Role/Relationship Status Dates Dr. Thiago Morgan MD Primary Care Provider Active Start: October 24, 2024 Dr. Cristofer Miranda , DO Emergency Provider Active Start: October 24, 2024 Dr. Davis Dougherty , DO Admit Provider Active S tart: October 24, 2024 Dr. Davis Dougherty , DO Attending Provider Active Start: October 24, 2024 Dr. Davis Dougherty , DO Other Provider Active S tart: October 24, 2024 Team Status: Inactive Member Role/Relationship Status Dates Dr. Thiago Morgan MD Primary Care Provider Active Start: November 02, 2024 End: November 02, 2024 Dr. Thiago Morgan MD Referring Provider Active Start: November 02, 2024 End: November 02, 2024 Dr. Alejandro Pritchard DO Attending Provider Active S tart: November 02, 2024 End: November 02, 2024 Team Status: Inactive Member Role/Relationship Status Dates Dr. Thiago Morgan MD Primary Care Provider Active Start: November 02, 2024 End: November 02, 2024 Dr. Alejandro Pritchard , Attending Provider Active S tart: November 02, 2024 End: November 02, 2024 Dr. Alejandro Pritchard DO Referring Provider Active S tart: November 02, 2024 End: November 02, 2024 Team Status: Inactive Member Role/Relationship Status Dates Dr. Thiago Morgan MD Primary Care Provider Active Start: November 07, 2024 End: November 07, 2024 Dr. Alejandro Pritchard DO Attending Provider Active S tart: November 07, 2024 End: November 07, 2024 Dr. Alejandro Pritchard DO Referring Provider Active S tart: November 07, 2024 End: November 07, 2024 Team Status: Inactive Member Role/Relationship Status Dates Dr. Thiago Morgan MD Primary Care Provider Active Start: November 16, 2024 End: November 16, 2024 Dr. Alejandro Pritchard DO Attending Provider Active S tart: November 16, 2024 End: November 16, 2024 Dr. Alejandro Pritchard DO Referring Provider Active S tart: November 16, 2024 End: November 16, 2024 Team Status: Active Member Role/Relationship Status Dates Dr. Thiago Morgan MD Primary Care Provider Active Start: November 16, 2024 Dr. Alejandro Pritchard DO Referring Provider Active S tart: November 16, 2024 Dr. Alejandro Pritchard DO Other Provider Active Start : November 16, 2024 YASMIN Guido Attending Provider Active S tart: November 16, 2024 Team Status: Inactive Member Role/Relationship Status Dates Dr. Thiago Morgan MD Primary Care Provider Active Start: November 24, 2024 End: November 24, 2024 Dr. Alejandro Pritchard DO Attending Provider Active S tart: November 24, 2024 End: November 24, 2024 Dr. Alejandro Pritchard DO Referring Provider Active S tart: November 24, 2024 End: November 24, 2024 Team Status: Active Member Role/Relationship Status Dates Dr. Thiago Morgan MD Primary Care Provider Active Start: November 24, 2024 Dr. Alejandro Pritchard DO Referring Provider Active S tart: November 24, 2024 Dr. Alejandro Pritchard DO Other Provider Active Start : November 24, 2024 Ronel Sims NP-C Attending Provider Active S tart: November 24, 2024 Team Status: Inactive Member Role/Relationship Status Dates Dr. Thiago Morgan MD Primary Care Provider Active Start: November 27, 2024 End: November 27, 2024 Rhonda Taylor BOAT PULLER, BOAT PULLER-C Attending Provider Active Start: November 27, 2024 End: November 27, 2024 Rhonda Taylor BOAT PULLER, BOAT PULLER-C Referring Provider Active Start: November 27, 2024 End: November 27, 2024 Team Status: Inactive Member Role/Relationship Status Dates Dr. Thiago Morgan MD Primary Care Provider Active Start: November 28, 2024 End: November 28, 2024 Dr. Alejandro Pritchard DO Attending Provider Active S tart: November 28, 2024 End: November 28, 2024 Dr. Alejandro Pritchard DO Referring Provider Active S tart: November 28, 2024 End: November 28, 2024 Team Status: Active Member Role/Relationship Status Dates Dr. Thiago Morgan MD Primary Care Provider Active Start: November 30, 2024 Dr. Alejandro Pritchard DO Attending Provider Active S tart: November 30, 2024 Dr. Alejandro Pritchard DO Referring Provider Active S tart: November 30, 2024 Dr. Alejandro Pritchard DO Other Provider Active Start : November 30, 2024 Team Status: Inactive Member Role/Relationship Status Dates Dr. Thigao Morgan MD Primary Care Provider Active Start: December 05, 2024 End: December 05, 2024 Dr. Thiago Morgan MD Referring Provider Active Start: December 05, 2024 End: December 05, 2024 Rhonda Taylor NP, BOAT PULLER-C Attending Provider Active Start: December 05, 2024 End: December 05, 2024 Team Status: Inactive Member Role/Relationship Status Dates Dr. Thiago Morgan MD Primary Care Provider Active Start: December 07, 2024 End: December 07, 2024 Rhonda Taylor BOAT PULLER, BOAT PULLER-C Attending Provider Active Start: December 07, 2024 End: December 07, 2024 Rhonda Taylor BOAT PULLER, BOAT PULLER-C Referring Provider Active Start: December 07, 2024 End: December 07, 2024 Team Status: Inactive Member Role/Relationship Status Dates Dr. Thiago Morgan MD Primary Care Provider Active Start: December 20, 2024 End: December 20, 2024 Rhonda Taylor BOAT PULLER, BOAT PULLER-C Attending Provider Active Start: December 20, 2024 End: December 20, 2024 Rhonda Taylor BOAT PULLER, BOAT PULLER-C Referring Provider Active Start: December 20, 2024 End: December 20, 2024 Team Status: Inactive Member Role/Relationship Status Dates Dr. Thiago Morgan MD Primary Care Provider Active Start: December 21, 2024 End: December 21, 2024 Dr. Thiago Morgan MD Attending Provider Active Start: December 21, 2024 End: December 21, 2024 Dr. Thiago Morgan MD Referring Provider Active Start: December 21, 2024 End: December 21, 2024 Team Status: Inactive Member Role/Relationship Status Dates Dr. Thiago Morgan MD Primary Care Provider Active Start: January 11, 2025 End: January 11, 2025 Dr. Issac Dexter MD Attending Provider Active Start: January 11, 2025 End: January 11, 2025 Dr. Issac Dexter MD Referring Provider Active Start: January 11, 2025 End: January 11, 2025 Manager Ems Relationship Specialty Start Date End Date Maribell Spence MD [address] [place] [address] PCP - General Family Medicine 01/19/22 Jluis Christopher MD [address] [place] [address] Gastroenterology 01/26/23 Issac Dexter V [address] [place] [place] [id number] Referring Pulmonary Disease 01/16/25 Manager Ems Relationship Specialty Start Date End Date Maribell Spence MD [address] [place] [address] PCP - General Family Medicine 01/19/22 Jluis Christopher MD [address] [place], [place] [id number] Gastroenterology 01/26/23 Issac Dexter V [address] [place] [id number] Referring Pulmonary Disease 01/16/25 Team Status: Inactive Member Role/Relationship Status Dates Dr. Thiago Morgan MD Primary Care Provider Active Start: October 23, 2024 End: October 24, 2024 Dr. Cristofer Miranda , DO Emergency Provider Active Start: October 23, 2024 End: October 24, 2024 Dr. Davis Dougherty , DO Admit Provider Active S tart: October 23, 2024 End: October 24, 2024 Dr. Davis Dougherty , DO Attending Provider Active Start: October 23, 2024 End: October 24, 2024 Team Status: Active Member Role/Relationship Status Dates Dr. Thiago Morgan MD Primary Care Provider Active Start: October 23, 2024 Dr. Cristofer Miranda , DO Emergency Provider Active Start: October 23, 2024 Dr. Davis Dougherty , DO Admit Provider Active S tart: October 23, 2024 Dr. Davis Dougherty , DO Attending Provider Active Start: October 23, 2024 Dr. Davis Dougherty , DO Other Provider Active S tart: October 23, 2024 Team Status: Active Member Role/Relationship Status Dates Dr. Thiago Morgan MD Primary Care Provider Active Start: October 24, 2024 Dr. Cristofer Miranda , DO Emergency Provider Active Start: October 24, 2024 Dr. Davis Dougherty , DO Admit Provider Active S tart: October 24, 2024 Dr. Davis Dougherty , DO Attending Provider Active Start: October 24, 2024 Dr. Davis Dougherty , DO Other Provider Active S tart: October 24, 2024 Team Status: Inactive Member Role/Relationship Status Dates Dr. Thiago Morgan MD Primary Care Provider Active Start: November 02, 2024 End: November 02, 2024 Dr. Thiago Morgan MD Referring Provider Active Start: November 02, 2024 End: November 02, 2024 Dr. Alejandro Pritchard , Attending Provider Active S tart: November 02, 2024 End: November 02, 2024 Team Status: Inactive Member Role/Relationship Status Dates Dr. Thiago Morgan MD Primary Care Provider Active Start: November 02, 2024 End: November 02, 2024 Dr. Alejandro Pritchard , Attending Provider Active S tart: November 02, 2024 End: November 02, 2024 Dr. Alejandro Pritchard , Referring Provider Active S tart: November 02, 2024 End: November 02, 2024 Team Status: Inactive Member Role/Relationship Status Dates Dr. Thiago Morgan MD Primary Care Provider Active Start: November 07, 2024 End: November 07, 2024 Dr. Alejandro Pritchard DO Attending Provider Active S tart: November 07, 2024 End: November 07, 2024 Dr. Alejandro Pritchard DO Referring Provider Active S tart: November 07, 2024 End: November 07, 2024 Team Status: Inactive Member Role/Relationship Status Dates Dr. Thiago Morgan MD Primary Care Provider Active Start: November 16, 2024 End: November 16, 2024 Dr. Alejandro Pritchard , Attending Provider Active S tart: November 16, 2024 End: November 16, 2024 Dr. Alejandro Pritchard DO Referring Provider Active S tart: November 16, 2024 End: November 16, 2024 Team Status: Active Member Role/Relationship Status Dates Dr. Thiago Morgan MD Primary Care Provider Active Start: November 16, 2024 Dr. Alejandro Pritchard DO Referring Provider Active S tart: November 16, 2024 Dr. Alejandro Pritchard , DO Other Provider Active Start : November 16, 2024 Ronel Sims NP-C Attending Provider Active S tart: November 16, 2024 Team Status: Inactive Member Role/Relationship Status Dates Dr. Thiago Morgan MD Primary Care Provider Active Start: November 24, 2024 End: November 24, 2024 Dr. Alejandro Pritchard , Attending Provider Active S tart: November 24, 2024 End: November 24, 2024 Dr. Alejandro Pritchard , Referring Provider Active S tart: November 24, 2024 End: November 24, 2024 Team Status: Active Member Role/Relationship Status Dates Dr. Thiago Morgan MD Primary Care Provider Active Start: November 24, 2024 Dr. Alejandro Pritchard , Referring Provider Active S tart: November 24, 2024 Dr. Alejandro Pritchard , Other Provider Active Start : November 24, 2024 MO GuidoC Attending Provider Active S tart: November 24, 2024 Team Status: Inactive Member Role/Relationship Status Dates Dr. Thiago Morgan MD Primary Care Provider Active Start: November 27, 2024 End: November 27, 2024 Rhonda Taylor BOAT PULLER, BOAT PULLER-C Attending Provider Active Start: November 27, 2024 End: November 27, 2024 Rhonda Taylor BOAT PULLER, BOAT PULLER-C Referring Provider Active Start: November 27, 2024 End: November 27, 2024 Team Status: Inactive Member Role/Relationship Status Dates Dr. Thiago Morgan MD Primary Care Provider Active Start: November 28, 2024 End: November 28, 2024 Dr. Alejandro Pritchard , Attending Provider Active S tart: November 28, 2024 End: November 28, 2024 Dr. Alejandro Pritchard , Referring Provider Active S tart: November 28, 2024 End: November 28, 2024 Team Status: Active Member Role/Relationship Status Dates Dr. Thiago Morgan MD Primary Care Provider Active Start: November 30, 2024 Dr. Alejandro Pritchard , Attending Provider Active S tart: November 30, 2024 Dr. Alejandro Pritchard , Referring Provider Active S tart: November 30, 2024 Dr. Alejandro Pritchard , Other Provider Active Start : November 30, 2024 Team Status: Inactive Member Role/Relationship Status Dates Dr. Thiago Morgan MD Primary Care Provider Active Start: December 05, 2024 End: December 05, 2024 Dr. Thiago Morgan MD Referring Provider Active Start: December 05, 2024 End: December 05, 2024 Rhonda Taylor BOAT PULLER, BOAT PULLER-C Attending Provider Active Start: December 05, 2024 End: December 05, 2024 Team Status: Inactive Member Role/Relationship Status Dates Dr. Thiago Morgan MD Primary Care Provider Active Start: December 07, 2024 End: December 07, 2024 Rhonda Taylor BOAT PULLER, BOAT PULLER-C Attending Provider Active Start: December 07, 2024 End: December 07, 2024 Rhonda Taylor BOAT PULLER, BOAT PULLER-C Referring Provider Active Start: December 07, 2024 End: December 07, 2024 Team Status: Inactive Member Role/Relationship Status Dates Dr. Thiago Morgan MD Primary Care Provider Active Start: December 20, 2024 End: December 20, 2024 Rhonda Taylor BOAT PULLER, BOAT PULLER-C Attending Provider Active Start: December 20, 2024 End: December 20, 2024 Rhonda Taylor BOAT PULLER, BOAT PULLER-C Referring Provider Active Start: December 20, 2024 End: December 20, 2024 Team Status: Inactive Member Role/Relationship Status Dates Dr. Thiago Morgan MD Primary Care Provider Active Start: December 21, 2024 End: December 21, 2024 Dr. Thiago Morgan MD Attending Provider Active Start: December 21, 2024 End: December 21, 2024 Dr. Thiago Morgan MD Referring Provider Active Start: December 21, 2024 End: December 21, 2024 Team Status: Inactive Member Role/Relationship Status Dates Dr. Thiago Morgan MD Primary Care Provider Active Start: January 11, 2025 End: January 11, 2025 Dr. Issac Dexter MD Attending Provider Active Start: January 11, 2025 End: January 11, 2025 Dr. Issac Dexter MD Referring Provider Active Start: January 11, 2025 End: January 11, 2025 Team Status: Inactive Member Role/Relationship Status Dates Dr. Thiago Morgan MD Primary Care Provider Active Start: January 19, 2025 End: January 19, 2025 Dr. Issac Dexter MD Attending Provider Active Start: January 19, 2025 End: January 19, 2025 Dr. Issac Dexter MD Referring Provider Active Start: January 19, 2025 End: January 19, 2025 Team Status: Active Member Role/Relationship Status Dates Dr. Thiago Morgan MD Primary care physician Active Team Status: Inactive Member Role/Relationship Status Dates Dr. Thiago Morgan MD Primary care physician Active Start: November 16, 2024 End: November 16, 2024 Dr. Alejandro Pritchard DO Attending physician Active Start: November 16, 2024 End: November 16, 2024 Dr. Alejandro Pritchard DO Referring Provider Active S tart: November 16, 2024 End: November 16, 2024 Team Status: Active Member Role/Relationship Status Dates Dr. Thiago Morgan MD Primary care physician Active Start: November 16, 2024 Dr. Alejandro Pritchard DO Referring Provider Active S tart: November 16, 2024 Dr. Alejandro Pritchadr DO Nurse Practitioner Active S tart: November 16, 2024 YASMIN Guido Attending physician Active Start: November 16, 2024 Team Status: Inactive Member Role/Relationship Status Dates Dr. Thiago Morgan MD Primary care physician Active Start: November 24, 2024 End: November 24, 2024 Dr. Alejandro Pritchard DO Attending physician Active Start: November 24, 2024 End: November 24, 2024 Dr. Alejandro Pritchard DO Referring Provider Active S tart: November 24, 2024 End: November 24, 2024 Team Status: Active Member Role/Relationship Status Dates Dr. Thiago Morgan MD Primary care physician Active Start: November 24, 2024 Dr. Alejandro Pritchard DO Referring Provider Active S tart: November 24, 2024 Dr. Alejandro Pritchard DO Nurse Practitioner Active S tart: November 24, 2024 YASMIN Guido Attending physician Active Start: November 24, 2024 Team Status: Inactive Member Role/Relationship Status Dates Dr. Thiago Morgan MD Primary care physician Active Start: November 27, 2024 End: November 27, 2024 Rhonda Taylor NP, NP-C Attending physician Active Start: November 27, 2024 End: November 27, 2024 Rhonda Taylor BOAT PULLER, BOAT PULLER-C Referring Provider Active Start: November 27, 2024 End: November 27, 2024 Team Status: Inactive Member Role/Relationship Status Dates Dr. Thiago Morgan MD Primary care physician Active Start: November 28, 2024 End: November 28, 2024 Dr. Alejandro Pritchard DO Attending physician Active Start: November 28, 2024 End: November 28, 2024 Dr. Alejandro Pritchard DO Referring Provider Active S tart: November 28, 2024 End: November 28, 2024 Team Status: Active Member Role/Relationship Status Dates Dr. Thiago Morgan MD Primary care physician Active Start: November 30, 2024 Dr. Alejandro Pritchard DO Attending physician Active Start: November 30, 2024 Dr. Alejandro Pritchard DO Referring Provider Active S tart: November 30, 2024 Dr. Alejandro Pritchard , Nurse Practitioner Active S tart: November 30, 2024 Team Status: Inactive Member Role/Relationship Status Dates Dr. Thiago Morgan MD Primary care physician Active Start: December 05, 2024 End: December 05, 2024 Dr. Thiago Morgan MD Referring Provider Active Start: December 05, 2024 End: December 05, 2024 Rhonda Taylor BOAT PULLER, BOAT PULLER-C Attending physician Active Start: December 05, 2024 End: December 05, 2024 Team Status: Inactive Member Role/Relationship Status Dates Dr. Thiago Morgan MD Primary care physician Active Start: December 07, 2024 End: December 07, 2024 Rhonda Taylor BOAT PULLER, BOAT PULLER-C Attending physician Active Start: December 07, 2024 End: December 07, 2024 Rhonda Taylor BOAT PULLER, BOAT PULLER-C Referring Provider Active Start: December 07, 2024 End: December 07, 2024 Team Status: Inactive Member Role/Relationship Status Dates Dr. Thiago Morgan MD Primary care physician Active Start: December 20, 2024 End: December 20, 2024 Rhonda Taylor BOAT PULLER, BOAT PULLER-C Attending physician Active Start: December 20, 2024 End: December 20, 2024 Rhonda Taylor BOAT PULLER, BOAT PULLER-C Referring Provider Active Start: December 20, 2024 End: December 20, 2024 Team Status: Inactive Member Role/Relationship Status Dates Dr. Thiago Morgan MD Primary care physician Active Start: December 21, 2024 End: December 21, 2024 Dr. Thiago Morgan MD Attending physician Active Start: December 21, 2024 End: December 21, 2024 Dr. Thiago Morgan MD Referring Provider Active Start: December 21, 2024 End: December 21, 2024 Team Status: Inactive Member Role/Relationship Status Dates Dr. Thiago Morgan MD Primary care physician Active Start: January 11, 2025 End: January 11, 2025 Dr. Issac Dexter MD Attending physician Active Start: January 11, 2025 End: January 11, 2025 Dr. Issac Dexter MD Referring Provider Active Start: January 11, 2025 End: January 11, 2025 Team Status: Inactive Member Role/Relationship Status Dates Dr. Thiago Morgan MD Primary care physician Active Start: January 19, 2025 End: January 19, 2025 Dr. Issac Dexter MD Attending physician Active Start: January 19, 2025 End: January 19, 2025 Dr. Issac Dexter MD Referring Provider Active Start: January 19, 2025 End: January 19, 2025 Team Status: Inactive Member Role/Relationship Status Dates Dr. Thiago Morgan MD Primary care physician Active Start: March 02, 2025 End: March 02, 2025 Dr. Issac Dexter MD Attending physician Active Start: March 02, 2025 End: March 02, 2025 Dr. Issac Dexter MD Referring Provider Active Start: March 02, 2025 End: March 02, 2025 Reason for Visit (unrecogniz ed section and content) Reason Comments Medicare Wellness Exam Reason Onset Date Comments Refill Request 01/19/2022 Reason Comments 6 Month Exam Reason Onset Date Comments Refill Request 01/19/2023 Reason Comments 3 attempts made to schedule Lung Cancer Screening Reason Comments Refill Request Reason Comments Calling About Referral - Was It Received ? Reason Comments Referral Information Goals (unrecognized section and content) Goals may be documented in a n alternate sectionGoals may be documented in an alternate section FOR RECORDS PERTAINING TO PATIENTS WHO ARE OR HAVE BEEN ENROLLED IN A CHEMICAL DEPENDENCY/SUBSTANCEABUSE PROGRAM, SOME INFORMATION MAY BE OMITTED. This clinical summary was aggregated from multiple sources. Caution should be exercised in using it in the provision of clinical care. This summary normalizes information from multiple sources, and as a consequence, information in this document may materially change the coding, format and clinical context of patient data. In addition, data may be omitted in some cases. CLINICAL DECISIONS SHOULD BE BASED ON THE PRIMARY CLINICAL RECORDS. [facility]. provides no warranty or guarantee of the accuracy or completeness of information in this document.
--- NOTE | 2025-03-26 08:07 | PR.ITP_ITS ---
General Information2 General Information Admitting Diagnosis: Moderate persistent asthma Secondary Diagnosis: Pleural effusion PFT FEV1:: 47 FVC:: 62 FEV1/FVC%:: 76 Personal Learning Style/Barriers Personal Learning Style:: Audio/Visual Barriers to Learning: None Stage of change r/t lifestyle modifications: Contemplation Education/Goals [place] Patient Goals: Quit Smoking: Initial Assessment, Increase muscle strength: Initial Assessment, Experience less dyspnea: Initial Assessment and Improve energy level: Initial Assessment Exercise - Initial Assessment Visit Date of Eval: 03/26/25 (initial eval) Problem/Goals Problems: Deconditioning, No regular exercise, Knowledge deficit exercise guidelines and Knowledge deficit exercise safety Goals:: Aerobic exercise 30-60 mins x 12 weeks [36 sessions] Functional Capacity Test Number of feet walked: 1,003 Lowest SPO2 %: 87 (6 min walk says below 88%) O2 L/M: 4 Physician Prescribed Exercise Modalities: Treadmill, Rower, Schwinn Airdyne AD-7, [place]ix Stepper, Sal[place]ix Pro- II Ergometer and [place]ix Lateral Power 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 Frequency (days/week): 3 Duration (Minutes):: 30-45 Intensity: 60-80% of age predicted maximum heart rate reserve Current METSs:: 2 Target HR:: 107 (93-107) Resting Blood Pressure: 144/70 Minimum SpO2 with exercise: 97 (pt was on 3 L pulsed) EKG Type: NSR w/ 1DAVB Current Minutes of Exercise: 30-45 Plan Plan and Plan to Review:: Benefits of exercise, Core components of exercise, How to measure dyspnea level, How to monitor dyspnea level, Exercise intensity, Exercise safety guideline, Home exercise guidelines and Nimisha: 3-4/11-13 Home Exercise Mode: Walking Nutrition/Wt Mgmt - Initial Visit Date of Eval: 03/26/25 (initial eval. Nutrition survey score of 4.) Weight Management Admit Height:: 6 ft 1 in Admit Weight:: 214 lb Admit BMI:: 28.2 Intervention Referral to dietitian:: No Will attend diet classes:: Yes Intervention/Plan: Instruct on ideal BMI & set weight loss goal w/patient, Assist pt to ID & incorporate diet changes for weight loss by S9, Refer to Structured Weight Loss program as appropriate, Encourage goal of using 250- 300dcal per session for weight loss and Other additional plan/interventions Plan Nutrition Plan: Yes: Review BMI or WC & identify target wt & strategies for wt control, Yes: Nutrition education class:, Yes: Medication education class [Prednisone]:, Yes: Weight control education class:, Yes: Education re: Need for ongoing weight monitoring, Yes: Food diary: and Yes: Physical activity log: Nutrition/Wt Mgmt - 30-Day Weight Management Height: 6 ft 1 in Weight:: 214 lb BMI: 28.2 Nutrition/Wt Mgmt - 60-Day Weight Management Height: 6 ft 1 in Weight:: 214 lb BMI: 28.2 Nutrition/Wt Mgmt - 90-Day Weight Management Height: 6 ft 1 in Weight:: 214 lb BMI: 28.2 Nutrition/Wt Mgmt - Final Weight Management Height: 6 ft 1 in Weight:: 214 lb BMI: 28.2 Psychosocial - Initial Assess Visit Date of Eval: 03/26/25 (initial eval. Nutrition survey score of 4.) Problems/Goals History of Emotional Disorders: None Psychosocial Goals: 1. Patient is free from overwhelming symtoms of depression (or anxiety, 2. Identifies personal stressors & states the strategies for managing, 3. Identifies activities to decrease isolation and/or symptoms of, 4. Improved psychosocial coping skills., 5. Verbalizes coping strategies., 6. Adequ ate treatment of depression. and 7. Improved Q.O.L. Psychosocial Test Tool Used:: Pulmonary QOL and PHQ-9 Questionnaire PHQ-9 Score: 2 Referral to Behavioral Health PS - Interventions: Yes: Attend Stress Management Classes Intervention/Plan: See List Interventions/Plan:: Assess stressors,coping strategies & signs of derpression on admission, Instruct/assist pt to develop coping & personal stress Mgt strategies, Refer to Behavioral Health if appropriate, Refer to Physician if appropriate, Instruct patient to recognize signs & symptoms of depression and Instruct patient to recog Psychosocial - 30-Day Problems/Goals History of Emotional Disorders: None Psychosocial Goals: 1. Patient is free from overwhelming symtoms of depression (or anxiety, 2. Identifies personal stressors & states the strategies for managing, 3. Identifies activities to decrease isolation and/or symptoms of, 4. Improved psychosocial coping skills., 5. Verbalizes coping strategies., 6. Adequate treatment of depression. and 7. Improved Q.O.L. Psychosocial Test Tool Used:: Pulmonary QOL and PHQ-9 Questionnaire PHQ-9 Score: 2 Referral to Behavioral Health PS - Interventions: Yes: Attend Stress Management Classes Plan Interventions/Plan:: Assess stressors,coping strategies & signs of derpression on admission, Instruct/assist pt to develop coping & personal stress Mgt strategies, Refer to Behavioral Health if appropriate, Refer to Physician if appropriate, Instruct patient to recognize signs & symptoms of depression and Instruct patient to recog Psychosocial - 60-Day Problems/Goals History of Emotional Disorders: None Psychosocial Goals: 1. Patient is free from overwhelming symtoms of depression (or anxiety, 2. Identifies personal stressors & states the strategies for managing, 3. Identifies activities to decrease isolation and/or symptoms of, 4. Improved psychosocial coping skills., 5. Verbalizes coping strategies., 6. Adequate treatment of depression. and 7. Improved Q.O.L. Psychosocial Test Tool Used:: Pulmonary QOL and PHQ-9 Questionnaire PHQ-9 Score: 2 Referral to Behavioral Health PS - Interventions: Yes: Attend Stress Management Classes Plan Interventions/Plan:: Assess stressors,coping strategies & signs of derpression on admission, Instruct/assist pt to develop coping & personal stress Mgt strategies, Refer to Behavioral Health if appropriate, Refer to Physician if appropriate, Instruct patient to recognize signs & symptoms of depression and Instruct patient to recog Psychosocial - 90-Day Problems/Goals History of Emotional Disorders: None Psychosocial Goals: 1. Patient is free from overwhelming symtoms of depression (or anxiety, 2. Identifies personal stressors & states the strategies for managing, 3. Identifies activities to decrease isolation and/or symptoms of, 4. Improved psychosocial coping skills., 5. Verbalizes coping strategies., 6. Adequate treatment of depression. and 7. Improved Q.O.L. Psychosocial Test Tool Used:: Pulmonary QOL and PHQ-9 Questionnaire PHQ-9 Score: 2 Referral to Behavioral Health PS - Interventions: Yes: Attend Stress Management Classes Plan Interventions/Plan:: Assess stressors,coping strategies & signs of derpression on admission, Instruct/assist pt to develop coping & personal stress Mgt strategies, Refer to Behavioral Health if appropriate, Refer to Physician if appropriate, Instruct patient to recognize signs & symptoms of depression and Instruct patient to recog Psychosocial - Final Assess Problems/Goals History of Emotional Disorders: None Psychosocial Goals: 1. Patient is free from overwhelming symtoms of depression (or anxiety, 2. Identifies personal stressors & states the strategies for managing, 3. Identifies activities to decrease isolation and/or symptoms of, 4. Improved psychosocial coping skills., 5. Verbalizes coping strategies., 6. Adequate treatment of depression. and 7. Improved Q.O.L. Psychosocial Test Tool Used:: Pulmonary QOL and PHQ-9 Questionnaire PHQ-9 Score: 2 Referral to Behavioral Health PS - Interventions: Yes: Attend Stress Management Classes Plan Interventions/Plan:: Assess stressors,coping strategies & signs of derpression on admission, Instruct/assist pt to develop coping & personal stress Mgt strategies, Refer to Behavioral Health if appropriate, Refer to Physician if appropriate, Instruct patient to recognize signs & symptoms of depression and Instruct patient to recog Oxygen & Oxygen Titration Init Visit Date of Eval: 03/26/25 (initial eval. Nutrition survey score of 4.) Initial Assessment Oxygen on Admission: Continuous home use SpO2:: 97 (pt was on 3 L pulsed) Port O2:: yes Patient Reports:: Prod cough daily <1 Tbsp and Hospitalized in the past 12 months [list how many times] (2) Goal Oxygen & Oxygen Tritration Goals: Effective hypoxemia control and Uses O2 as Rx'd/safely Plans Plan: Monitor SpO2 rest & with exercise, Recommend appropriate FiO2 to Pt/MD, Assist to contact DME for O2, Train appropriate O2 use at rest, Train appropriate O2 use with exercise and Train O2 safety & systems Reviewed prescribed medications:: Purpose, Schedule and Importance of compliance Instruct correct technique/timing & care:: MDI, DPI, Nebulizer and Return demo use of inhaler Bronchial Hygiene Plan: Controlled cough, CPT, Vibratory PEP device, VEST, Role of exercise in secretion clearance, NS Nasal spray, Hydration, Hand hygiene, Evaluate sputum, When to call MD, Signs/symptoms to report:, Influenza/Pneumovax vaccines and Cleaning of respiratory equipment Oxygen & Oxygen Titration 30D Reassessment SpO2:: 97 (pt was on 3 L pulsed) Oxygen & Oxygen Titration 60D Reassessment SpO2:: 97 (pt was on 3 L pulsed) Oxygen & Oxygen Titration 90D Reassessment SpO2:: 97 (pt was on 3 L pulsed) Oxygen & Oxygen Titration MARGY Reassessment SpO2:: 97 (pt was on 3 L pulsed) Core Components - Initial Visit Date of Eval: 03/26/25 (initial eval. Nutrition survey score of 4.) Hypertension BP: 144/70 [place] [employer] Hypertension Guidelines Low Sodium diet: Yes Outcomes/Goals: Able to verbalize/achieve optimal blood pressure <130/80 and Incorporates diet changes & exercise for blood pressure control by DC Tobacco - Initial Assessment Tobacco Program Goals Stages of Change:: Maintenance Do you have family support?: Yes Tobacco Use: Non-smoker How long ago did you quit using tobacco products?: Greater than or equal to 6 months ago (Stopped in August of 2024) Years Smokin Do you use smokeless tobacco?: No Smoking Cessation Referral:: No Individual Education/Counseling:: No Education Schedule Given:: Yes Gave Education Materials For:: Tobacco Triggers, Pulmonary Disease, Risk Factors, Breathing Techniques, Medical Compliance, Pulmonary A&P, Exacerbation Signs & Symptoms and Stress & Relaxation Exacerbation Mgmt & Airway Clearance Problems:: Poor knowledge of O2 use/safety Hypoxemia Goals:: Port system Bronchial Hygiene Problems:: Ineffective secretion clearance and Respiratory infection Prevention/Management Goals: Pt demonstrates effective cough, effective secretion clearance. and Pt describes signs and symptoms of infection. Patient Reports:: Prod cough daily <1 Tbsp and Hospitalized in the past 12 months [list how many times] (2) Plan: Monitor SpO2 rest & with exercise, Recommend appropriate FiO2 to Pt/MD, Assist to contact DME for O2, Train appropriate O2 use at rest, Train appropriate O2 use with exercise and Train O2 safety & systems Instruct correct technique/timing & care:: MDI, DPI, Nebulizer and Return demo use of inhaler Bronchial Hygiene Plan: Controlled cough, CPT, Vibratory PEP device, VEST, Role of exercise in secretion clearance, NS Nasal spray, Hydration, Hand hygiene, Evaluate sputum, When to call MD, Signs/symptoms to report:, Influenza/Pneumovax vaccines and Cleaning of respiratory equipment Medication Interventions/plans: Instruct on medication effects & side effects, Review medication list w/patient every two weeks and Instruct importance of taking meds as ordered & assist problem solving Medication Goals: Adherence to prescribed medications and Correct technique/timing & care of MDI, DPI, nebulizer, and spacer. Does pt report taking home meds as prescribed?: Yes Medications: Yes: MDI and Yes: DPI Reviewed prescribed medications:: Purpose, Schedule and Importance of compliance Diabetes Diabetes:: No Referral to dietitian:: No Will attend diet classes:: Yes Core Components - 30 DAYS Hypertension Resting Blood Pressure:: 144/70 [place] [employer] Hypertension Guidelines Outcomes/Goals: Able to verbalize/achieve optimal blood pressure <130/80 and Incorporates diet changes & exercise for blood pressure control by DC Tobacco - 30-Day Tobacco Program Goals Stages of Change:: Maintenance Do you have family support?: Yes Tobacco Use: Non-smoker Do you use smokeless tobacco?: No Smoking Cessation Referral:: No Education Schedule Given:: Yes Gave Education Materials For:: Tobacco Triggers, Pulmonary Disease, Risk Factors, Breathing Techniques, Medical Compliance, Pulmonary A&P, Exacerbation Signs & Symptoms and Stress & Relaxation Diabetes Diabetes:: No Core Components - 60 DAYS Hypertension Resting Blood Pressure:: 144/70 [place] [employer] Hypertension Guidelines Outcomes/Goals: Able to verbalize/achieve optimal blood pressure <130/80 and Incorporates diet changes & exercise for blood pressure control by [place] Tobacco - 60-Day Tobacco Program Goals Stages of Change:: Maintenance Do you have family support?: Yes Tobacco Use: Non-smoker Do you use smokeless tobacco?: No Smoking Cessation Referral:: No Individual Education/Counseling:: No Education Schedule Given:: Yes Gave Education Materials For:: Tobacco Triggers, Pulmonary Disease, Risk Factors, Breathing Techniques, Medical Compliance, Pulmonary A&P, Exacerbation Signs & Symptoms and Stress & Relaxation Diabetes Diabetes:: No Core Components - 90 DAYS Hypertension Resting Blood Pressure:: 144/70 [place] [employer] Hypertension Guidelines Outcomes/Goals: Able to verbalize/achieve optimal blood pressure <130/80 and Incorporates diet changes & exercise for blood pressure control by CA Tobacco - 90-Day Tobacco Program Goals Stages of Change:: Maintenance Do you have family support?: Yes Tobacco Use: Non-smoker Do you use smokeless tobacco?: No Smoking Cessation Referral:: No Individual Education/Counseling:: No Education Schedule Given:: Yes Gave Education Materials For:: Tobacco Triggers, Pulmonary Disease, Risk Factors, Breathing Techniques, Medical Compliance, Pulmonary A&P, Exacerbation Signs & Symptoms and Stress & Relaxation Diabetes Diabetes:: No Core Components - Final Hypertension Resting Blood Pressure:: 144/70 [place] [employer] Hypertension Guidelines Outcomes/Goals: Able to verbalize/achieve optimal blood pressure <130/80 and Incorporates diet changes & exercise for blood pressure control by CA Tobacco - Final Tobacco Program Goals Stages of Change:: Maintenance Do you have family support?: Yes Tobacco Use: Non-smoker Do you use smokeless tobacco?: No Smoking Cessation Referral:: No Individual Education/Counseling:: No Education Schedule Given:: Yes Diabetes Diabetes:: No Patient Health Questionnaire PHQ-9 Screening Initial Assessment: 1. Little interest or pleasure in doing things: Not at all 2. Feeling down, depressed, or hopeless: Not at all 3. Trouble falling or staying asleep, or sleeping too much: Not at all 4. Feeling tired or having little energy: Several days 5. Poor appetite or overeating: Several days 6. Feeling bad about yourself -- or that you are a failure or have let yourself or your family down: Not at all 7. Trouble concentrating on things, such as reading the newspaper or watching television: Not at all 8. Moving or speaking so slowly that other people could have noticed. Or the opposite - being so fidgety or restless that you have been moving around a lot more than usual: Not at all 9. Thoughts that you would be better off , or of hurting yourself in some way: Not at all How difficult have these problems made it for you to do your work, take care of things at home, or get along with other people?: Somewhat difficult Total Score: 2 Knowledge Questionaire (BCKQ) Information Information: [place] COPD Knowledge Questionnaire (BCKQ) This questionnaire is designed to find out what you know about your lung problem. It should be completed without help form anyone else. This usually takes between 10 and 20 minutes. Your answers will help us to find out what information you need to help you to understand and manage your lung condition. [place] which you think is the correct answer. COPD Assessment Test [CAT] Questions Never cough = 0, Cough all the time = 5: 2 No phlegm = 0, Chest full of phlegm = 5: 2 No chest tightness = 0, Chest very tight = 5: 1 No breathless w/exertion = 0, Very breathless w/exertion = 5: 2 No limitations w/activity = 0, Very limited w/activity = 5: 0 Confident leaving home = 0, Not at all confident = 5: 1 Sleep soundly = 0, Don't sleep soundly = 5: 0 Lots of energy = 0, No energy at all = 5: 3 Total CAT score:: 11 Nutrition Survey Nutrition Survey Initial: Have you lost >10 lbs over the past 2 months without trying?: No Are you following a special diet at home for diabetes, low fat, or low salt?: No Are you interested in meeting with a dietitian for help understanding your diet?: No Do you eat less than 3 meals a day?: Yes Do you eat fatty meats (rutledge, sausage, ribs, etc), fried foods, desserts, large amounts of salad dressings, margarine, butter, or cheese most days?: Yes Do you have food allergies? [Enter types in comment field]: Yes Do you eat in restaurants more than 3 times a week?: No Do you season food with salt, seasoning salt, or garlic salt?: Yes Do you used canned, boxed, frozen meals, or soups, seasoning packets?: No Total Score:: 4
[2025-03-26 08:28] VITALS: BP 144/70; PULSE 81; O2SAT 97; BMI 28.3
[2025-03-26 09:07] VITALS: BP 144/70; O2SAT 97; BMI 28.2
== END | disposition home or self-care (01) ==
PROVIDERS: PCP Internal Medicine; Referring Provider Internal Medicine Pulmonary Disease; Visit Provider Internal Medicine Pulmonary Disease
DX: J90 Pleural effusion, not elsewhere classified (principal); J45.40 Moderate persistent asthma, uncomplicated

== ENCOUNTER 2025-04-06 13:00 | Outpatient (RCR) | payer MEDICARE, SELFPAY ==
[2025-03-26 09:07] VITALS: BMI 28.2
== END 2025-04-06 23:59 ==
LOC: PR 13:00
PROVIDERS: PCP Internal Medicine; Referring Provider Internal Medicine Pulmonary Disease; Visit Provider Internal Medicine Pulmonary Disease
DX: J90 Pleural effusion, not elsewhere classified (principal); J45.40 Moderate persistent asthma, uncomplicated
CPT/HCPCS: 97150; G0239

== ENCOUNTER → 2025-04-11 | Outpatient (CLI) | payer MEDICARE, SELFPAY ==
[2025-03-26 09:07] VITALS: BMI 28.2
[2025-04-11 15:18] LABS: CRP < 3.00 mg/L (0.0-3.0)
== END | disposition home or self-care (01) ==
LOC: LAB 13:48
PROVIDERS: PCP Internal Medicine; Referring Provider Internal Medicine Pulmonary Disease; Visit Provider Internal Medicine Pulmonary Disease
DX: J90 Pleural effusion, not elsewhere classified (principal)
CPT/HCPCS: 36415; 85652; 86140

== ENCOUNTER 2025-05-02 13:00 | Outpatient (RCR) | payer MEDICARE, SELFPAY ==
[2025-03-26 09:07] VITALS: BMI 28.2
--- NOTE | 2025-04-23 11:00 | PCM.PR.TP ---
Exercise - Initial Assessment Physician Prescribed Exercise Modalities: Treadmill, SciFit Stepper and SciFit Pro-II Ergometer Current METSs:: 2.8 Target HR:: 107 (93-107) Maximum Exercise HR:: 131 Resting Blood Pressure: 124/60 Maximum Exercise Blood Pressure: 172/80 Minimum SpO2 with exercise: 87 (87% on 2L pt was taken to 3L) EKG Type: NSR to ST w/BBB Nutrition/Wt Mgmt - Initial Visit Session Number:: 11 (Nutrition survey score of 4.) Weight Management Admit Height:: 6 ft 1 in Admit Weight:: 235 lb Admit BMI:: 30.9 Nutrition/Wt Mgmt - 30-Day Visit Date of Eval: 04/23/25 (initial eval) Session Number:: 11 (Nutrition survey score of 4.) Weight Management Height: 6 ft 1 in Weight:: 235 lb BMI: 30.9 Weight Goals Progress:: Progressing (Pt is scheduled to attend nutrition classes with our certified dietary manager. Heart healthy low sodium diet encouraged. ) Nutrition/Wt Mgmt - 60-Day Visit Session Number:: 11 (Nutrition survey score of 4.) Weight Management Height: 6 ft 1 in Weight:: 235 lb BMI: 30.9 Nutrition/Wt Mgmt - 90-Day Visit Session Number:: 11 (Nutrition survey score of 4.) Weight Management Height: 6 ft 1 in Weight:: 235 lb BMI: 30.9 Nutrition/Wt Mgmt - Final Visit Session Number:: 11 (Nutrition survey score of 4.) Weight Management Height: 6 ft 1 in Weight:: 235 lb BMI: 30.9 Psychosocial - Initial Assess Visit Session Number:: 11 (Nutrition survey score of 4.) Problems/Goals History of Emotional Disorders: None Psychosocial Goals: 1. Patient is free from overwhelming symtoms of depression (or anxiety, 2. Identifies personal stressors & states the strategies for managing, 3. Identifies activities to decrease isolation and/or symptoms of, 4. Improved psychosocial coping skills., 5. Verbalizes coping strategies., 6. Adequate treatment of depression. and 7. Improved Q.O.L. Psychosocial Test Tool Used:: Pulmonary QOL and PHQ-9 Questionnaire PHQ-9 Score: 2 Referral to Behavioral Health PS - Interventions: Yes: Attend Stress Management Classes Intervention/Plan: See List Interventions/Plan:: Assess stressors,coping strategies & signs of derpression on admission, Instruct/assist pt to develop coping & personal stress Mgt strategies, Refer to Behavioral Health if appropriate, Refer to Physician if appropriate, Instruct patient to recognize signs & symptoms of depression and Instruct patient to recog Comments:: Pt denies any psychosocial issues at this time. Pt to attend stress management class. Will reassess every 30 days. Psychosocial - 30-Day Visit Date of Eval: 04/23/25 (initial eval) Session Number:: 11 (Nutrition survey score of 4.) Problems/Goals History of Emotional Disorders: None Psychosocial Goals: 1. Patient is free from overwhelming symtoms of depression (or anxiety, 2. Identifies personal stressors & states the strategies for managing, 3. Identifies activities to decrease isolation and/or symptoms of, 4. Improved psychosocial coping skills., 5. Verbalizes coping strategies., 6. Adequate treatment of depression. and 7. Improved Q.O.L. Psychosocial Test Tool Used:: Pulmonary QOL and PHQ-9 Questionnaire PHQ-9 Score: 2 Referral to Behavioral Health PS - Interventions: Yes: Attend Stress Management Classes Plan Interventions/Plan:: Assess stressors,coping strategies & signs of derpression on admission, Instruct/assist pt to develop coping & personal stress Mgt strategies, Refer to Behavioral Health if appropriate, Refer to Physician if appropriate, Instruct patient to recognize signs & symptoms of depression and Instruct patient to recog Comments:: Pt denies any psychosocial issues at this time. Pt to attend stress management class. Will reassess every 30 days. Psychosocial - 60-Day Visit Session Number:: 11 (Nutrition survey score of 4.) Problems/Goals History of Emotional Disorders: None Psychosocial Goals: 1. Patient is free from overwhelming symtoms of depression (or anxiety, 2. Identifies personal stressors & states the strategies for managing, 3. Identifies activities to decrease isolation and/or symptoms of, 4. Improved psychosocial coping skills., 5. Verbalizes coping strategies., 6. Adequate treatment of depression. and 7. Improved Q.O.L. Psychosocial Test Tool Used:: Pulmonary QOL and PHQ-9 Questionnaire PHQ-9 Score: 2 Referral to Behavioral Health PS - Interventions: Yes: Attend Stress Management Classes Plan Interventions/Plan:: Assess stressors,coping strategies & signs of derpression on admission, Instruct/assist pt to develop coping & personal stress Mgt strategies, Refer to Behavioral Health if appropriate, Refer to Physician if appropriate, Instruct patient to recognize signs & symptoms of depression and Instruct patient to recog Comments:: Pt denies any psychosocial issues at this time. Pt to attend stress management class. Will reassess every 30 days. Psychosocial - 90-Day Problems/Goals History of Emotional Disorders: None Psychosocial Goals: 1. Patient is free from overwhelming symtoms of depression (or anxiety, 2. Identifies personal stressors & states the strategies for managing, 3. Identifies activities to decrease isolation and/or symptoms of, 4. Improved psychosocial coping skills., 5. Verbalizes coping strategies., 6. Adequate treatment of depression. and 7. Improved Q.O.L. Psychosocial Test Tool Used:: Pulmonary QOL and PHQ-9 Questionnaire PHQ-9 Score: 2 Referral to Behavioral Health PS - Interventions: Yes: Attend Stress Management Classes Plan Interventions/Plan:: Assess stressors,coping strategies & signs of derpression on admission, Instruct/assist pt to develop coping & personal stress Mgt strategies, Refer to Behavioral Health if appropriate, Refer to Physician if appropriate, Instruct patient to recognize signs & symptoms of depression and Instruct patient to recog Comments:: Pt denies any psychosocial issues at this time. Pt to attend stress management class. Will reassess every 30 days. Psychosocial - Final Assess Problems/Goals History of Emotional Disorders: None Psychosocial Goals: 1. Patient is free from overwhelming symtoms of depression (or anxiety, 2. Identifies personal stressors & states the strategies for managing, 3. Identifies activities to decrease isolation and/or symptoms of, 4. Improved psychosocial coping skills., 5. Verbalizes coping strategies., 6. Adequate treatment of depression. and 7. Improved Q.O.L. Psychosocial Test Tool Used:: Pulmonary QOL and PHQ-9 Questionnaire PHQ-9 Score: 2 Referral to Behavioral Health PS - Interventions: Yes: Attend Stress Management Classes Plan Interventions/Plan:: Assess stressors,coping strategies & signs of derpression on admission, Instruct/assist pt to develop coping & personal stress Mgt strategies, Refer to Behavioral Health if appropriate, Refer to Physician if appropriate, Instruct patient to recognize signs & symptoms of depression and Instruct patient to recog Comments:: Pt denies any psychosocial issues at this time. Pt to attend stress management class. Will reassess every 30 days. Oxygen & Oxygen Titration Init Visit Session Number:: 11 (Nutrition survey score of 4.) Initial Assessment SpO2:: 87 (87% on 2L pt was taken to 3L) Oxygen & Oxygen Titration 30D Visit Date of Eval: 04/23/25 (initial eval) Reassessment Reassessment- 30 Days: Demonstrate knowledge of O2 Rx at rest & w/exercise, Using O2 as Rx'd, Has home O2 as Rx'd and Uses port O2 as Rx'd SpO2:: 87 (87% on 2L pt was taken to 3L) Oxygen & Oxygen Titration 60D Visit Date of Eval: 04/23/25 (initial eval) Reassessment SpO2:: 87 (87% on 2L pt was taken to 3L) Oxygen & Oxygen Titration 90D Visit Date of Eval: 04/23/25 (initial eval) Reassessment SpO2:: 87 (87% on 2L pt was taken to 3L) Oxygen & Oxygen Titration MARGY Visit Date of Eval: 04/23/25 (initial eval) Reassessment SpO2:: 87 (87% on 2L pt was taken to 3L) [employer] - 30 DAYS Visit Date of Eval: 04/23/25 (initial eval) Knowledge Questionaire (BCKQ) Information Information: [place] COPD Knowledge Questionnaire (BCKQ) This questionnaire is designed to find out what you know about your lung problem. It should be completed without help form anyone else. This usually takes between 10 and 20 minutes. Your answers will help us to find out what information you need to help you to understand and manage your lung condition. [place] [facility] which you think is the correct answer.
[2025-04-23 11:15] VITALS: BP 124/60; O2SAT 87; BMI 30.9
== END 2025-05-06 23:59 ==
LOC: PR 13:00
PROVIDERS: PCP Internal Medicine; Referring Provider Internal Medicine Pulmonary Disease; Visit Provider Internal Medicine Pulmonary Disease
DX: J90 Pleural effusion, not elsewhere classified (principal); J45.40 Moderate persistent asthma, uncomplicated
CPT/HCPCS: 97150; G0239

== ENCOUNTER → 2025-06-04 | Outpatient (CLI) | payer MEDICARE, SELFPAY ==
[2025-04-23 11:15] VITALS: BMI 30.9
[2025-05-21 10:40] VITALS: BMI 32.7
--- NOTE | 2025-06-04 13:50 | RAD_ITS ---
PROCEDURE: CHEST PA AND LATERAL 06/04/2025 REASON FOR EXAM: PLEURAL EFFUSION, NOT ELSEWHERE CLASSIFIED TECHNIQUE: Procedure Code: RADCXR Modality: DX Procedure: CHEST PA AND LATERAL FINDINGS: There are mildly prominent bilateral interstitial lung markings. There are trace bilateral pleural effusions, greater on the left. There are no pneumothoraces. The upper abdomen is unremarkable. The osseous structures are intact. RAD/Chest PA and Lateral IMPRESSION: Mildly prominent bilateral interstitial lung markings, which may be secondary t o edema. Trace bilateral pleural effusions, greater on the left. Reading Location: [id number]
[2025-06-04 15:45] LABS: CRP 36.00 mg/L (0.0-3.0)
[2025-06-04 15:56] LABS: Hematocrit 29.6 % (40-54); Hemoglobin 9.5 g/dL (13.0-16.5); Immature Granulocytes Count 0.060 X10^3/uL (0.0-0.0); Mean Corp Hgb Conc 32.1 g/dL (32-36); Mean Corpuscular Volume 82.0 fL (80-94); Mean Platelet Vol. 10.1 fl (6.2-12.0); NRBC Flagged by Analyzer 0 % (0-5); Platelet Count 401 K/mm3 (150-450); RBC Distribution Width CV 14.0 % (11.6-14.6); RBC Distribution Width SD 41.8 fl (35.1-43.9); Red Blood Count 3.61 M/mm3 (4.6-6.2); White Blood Count 10.9 K/mm3 (4.4-11.0)
[2025-06-06 11:08] LABS: ANTINUCLEAR ANTIBODIES DIRECT Negative (Negative); Anti-dsDNA Ab 1 IU/mL (0-9); SJOGREN'S Anti-SS-A test < 0.2 AI (0.0-0.9); SJOGREN'S Anti-SS-B test < 0.2 AI (0.0-0.9)
[2025-06-09 12:08] LABS: Angiotensin Convert Enzyme 27 U/L (14-82); Anti-Smooth Muscle ABS 17 Units (0-19); Cytoplasmic Ab (C-ANCA) <1:20 titer (Neg:<1:20); Perinuclear Ab (P-ANCA) <1:20 titer (Neg:<1:20)
== END | disposition home or self-care (01) ==
PROVIDERS: PCP Internal Medicine; Referring Provider Internal Medicine Pulmonary Disease; Visit Provider Internal Medicine Pulmonary Disease
DX: J90 Pleural effusion, not elsewhere classified (principal)
CPT/HCPCS: 36415; 71046; 82164; 83516; 85025; 85652; 86037; 86038; 86140; 86200; 86225; 86235; 86762

== ENCOUNTER 2025-06-06 13:00 | Outpatient (RCR) | payer MEDICARE, SELFPAY ==
[2025-04-23 11:15] VITALS: BMI 30.9
[2025-05-07 15:52] LABS: CRP 7.63 mg/L (0.0-3.0)
--- NOTE | 2025-05-21 10:22 | PR.ITP_ITS ---
Exercise - Initial Assessment Visit Session Number:: 22 Physician Prescribed Exercise Modalities: Treadmill, SciFit Stepper and SciFit Pro-II Ergometer Target HR:: 107 (93-107) Current RPD:: 2-3 Maximum Exercise HR:: 133 Resting Blood Pressure: 118/62 Maximum Exercise Blood Pressure: 160/70 Minimum SpO2 with exercise: 88 (2-3 L) EKG Type: NSR to ST w/1st degree AV blockand rare ectopy Nutrition/Wt Mgmt - Initial Visit Session Number:: 22 (Nutrition survey score of 4) Weight Management Admit Height:: 6 ft 1 in Admit Weight:: 248 lb Admit BMI:: 32.7 Nutrition/Wt Mgmt - 30-Day Visit Date of Eval: 05/21/25 Session Number:: 22 (Nutrition survey score of 4) Weight Management Height: 6 ft 1 in Weight:: 248 lb BMI: 32.7 Nutrition/Wt Mgmt - 60-Day Visit Date of Eval: 05/21/25 Session Number:: 22 (Nutrition survey score of 4) Weight Management Height: 6 ft 1 in Weight:: 248 lb BMI: 32.7 Weight Goals Progress:: Progressing (Pt is scheduled to attend nutrition classes with our [place] administrative law judge. Heart healthy low sodium diet encouraged. ) Nutrition/Wt Mgmt - 90-Day Visit Session Number:: 22 (Nutrition survey score of 4) Weight Management Height: 6 ft 1 in Weight:: 248 lb BMI: 32.7 Weight Goals Progress:: Progressing (Pt is scheduled to attend nutrition classes with our [place] administrative law judge. Heart healthy low sodium diet encouraged. ) Nutrition/Wt Mgmt - Final Visit Session Number:: 22 (Nutrition survey score of 4) Weight Management Height: 6 ft 1 in Weight:: 248 lb BMI: 32.7 Psychosocial - Initial Assess Visit Session Number:: 22 (Nutrition survey score of 4) Problems/Goals History of Emotional Disorders: None Psychosocial Goals: 1. Patient is free from overwhelming symtoms of depression (or anxiety, 2. Identifies personal stressors & states the strategies for managing, 3. Identifies activities to decrease isolation and/or symptoms of, 4. Improved psychosocial coping skills., 5. Verbalizes coping strategies., 6. Adequate treatment of depression. and 7. Improved Q.O.L. Psychosocial Test Tool Used:: Pulmonary QOL and PHQ-9 Questionnaire PHQ-9 Score: 2 Referral to Behavioral Health PS - Interventions: Yes: Attend Stress Management Classes Intervention/Plan: See List Interventions/Plan:: Assess stressors,coping strategies & signs of derpression on admission, Instruct/assist pt to develop coping & personal stress Mgt strategies, Refer to Behavioral Health if appropriate, Refer to Physician if appropriate, Instruct patient to recognize signs & symptoms of depression and Instruct patient to recog Comments:: Pt denies any psychosocial issues at this time. Pt to attend stress management classes. Will reassess every 30 days. Psychosocial - 30-Day Visit Date of Eval: 05/21/25 Session Number:: 22 (Nutrition survey score of 4) Problems/Goals History of Emotional Disorders: None Psychosocial Goals: 1. Patient is free from overwhelming symtoms of depression (or anxiety, 2. Identifies personal stressors & states the strategies for managing, 3. Identifies activities to decrease isolation and/or symptoms of, 4. Improved psychosocial coping skills., 5. Verbalizes coping strategies., 6. Adequate treatment of depression. and 7. Improved Q.O.L. Psychosocial Test Tool Used:: Pulmonary QOL and PHQ-9 Questionnaire PHQ-9 Score: 2 Referral to Behavioral Health PS - Interventions: Yes: Attend Stress Management Classes Plan Interventions/Plan:: Assess stressors,coping strategies & signs of derpression on admission, Instruct/assist pt to develop coping & personal stress Mgt strategies, Refer to Behavioral Health if appropriate, Refer to Physician if appropriate, Instruct patient to recognize signs & symptoms of depression and Instruct patient to recog Comments:: Pt denies any psychosocial issues at this time. Pt to attend stress management classes. Will reassess every 30 days. Psychosocial - 60-Day Visit Date of Eval: 05/21/25 Session Number:: 22 (Nutrition survey score of 4) Problems/Goals History of Emotional Disorders: None Psychosocial Goals: 1. Patient is free from overwhelming symtoms of depression (or anxiety, 2. Identifies personal stressors & states the strategies for managing, 3. Identifies activities to decrease isolation and/or symptoms of, 4. Improved psychosocial coping skills., 5. Verbalizes coping strategies., 6. Adequate treatment of depression. and 7. Improved Q.O.L. Psychosocial Test Tool Used:: Pulmonary QOL and PHQ-9 Questionnaire PHQ-9 Score: 2 Referral to Behavioral Health PS - Interventions: Yes: Attend Stress Management Classes Plan Interventions/Plan:: Assess stressors,coping strategies & signs of derpression on admission, Instruct/assist pt to develop coping & personal stress Mgt strategies, Refer to Behavioral Health if appropriate, Refer to Physician if appropriate, Instruct patient to recognize signs & symptoms of depression and Instruct patient to recog Comments:: Pt denies any psychosocial issues at this time. Pt to attend stress management classes. Will reassess every 30 days. Psychosocial - 90-Day Visit Session Number:: 22 Problems/Goals History of Emotional Disorders: None Psychosocial Goals: 1. Patient is free from overwhelming symtoms of depression (or anxiety, 2. Identifies personal stressors & states the strategies for managing, 3. Identifies activities to decrease isolation and/or symptoms of, 4. Improved psychosocial coping skills., 5. Verbalizes coping strategies., 6. Adequate treatment of depression. and 7. Improved Q.O.L. Psychosocial Test Tool Used:: Pulmonary QOL and PHQ-9 Questionnaire PHQ-9 Score: 2 Referral to Behavioral Health PS - Interventions: Yes: Attend Stress Management Classes Plan Interventions/Plan:: Assess stressors,coping strategies & signs of derpression on admission, Instruct/assist pt to develop coping & personal stress Mgt st rategies, Refer to Behavioral Health if appropriate, Refer to Physician if appropriate, Instruct patient to recognize signs & symptoms of depression and Instruct patient to recog Comments:: Pt denies any psychosocial issues at this time. Pt to attend stress management classes. Will reassess every 30 days. Psychosocial - Final Assess Visit Session Number:: 22 Problems/Goals History of Emotional Disorders: None Psychosocial Goals: 1. Patient is free from overwhelming symtoms of depression (or anxiety, 2. Identifies personal stressors & states the strategies for managing, 3. Identifies activities to decrease isolation and/or symptoms of, 4. Improved psychosocial coping skills., 5. Verbalizes coping strategies., 6. Adequate treatment of depression. and 7. Improved Q.O.L. Psychosocial Test Tool Used:: Pulmonary QOL and PHQ-9 Questionnaire PHQ-9 Score: 2 Referral to Behavioral Health PS - Interventions: Yes: Attend Stress Management Classes Plan Interventions/Plan:: Assess stressors,coping strategies & signs of derpression on admission, Instruct/assist pt to develop coping & personal stress Mgt strategies, Refer to Behavioral Health if appropriate, Refer to Physician if appropriate, Instruct patient to recognize signs & symptoms of depression and Instruct patient to recog Comments:: Pt denies any psychosocial issues at this time. Pt to attend stress management classes. Will reassess every 30 days. Oxygen & Oxygen Titration Init Visit Session Number:: 22 (Nutrition survey score of 4) Initial Assessment SpO2:: 88 (2-3 L) Oxygen & Oxygen Titration 30D Visit Date of Eval: 05/21/25 Session Number:: 22 Reassessment SpO2:: 88 (2-3 L) Oxygen & Oxygen Titration 60D Visit Date of Eval: 05/21/25 Session Number:: 22 Reassessment Reassessment- 60 Days: Demonstrate knowledge of O2 Rx at rest & w/exercise, Using O2 as Rx'd, Has home O2 as Rx'd and Uses port O2 as Rx'd SpO2:: 88 (2-3 L) Oxygen & Oxygen Titration 90D Visit Date of Eval: 05/21/25 Session Number:: 22 Reassessment SpO2:: 88 (2-3 L) Oxygen & Oxygen Titration MARGY Visit Date of Eval: 05/21/25 Session Number:: 22 Reassessment SpO2:: 88 (2-3 L) Core Components - Initial Visit Session Number:: 22 Hypertension BP: 118/62 Citizen Of [place] [employer] Hypertension Guidelines Blood Pressure: 160/70 Outcomes/Goals: Able to verbalize/achieve optimal blood pressure <130/80 and Incorporates diet changes & exercise for blood pressure control by DC Tobacco - Initial Assessment Tobacco Program Goals Stages of Change:: Maintenance Do you have family support?: Yes Tobacco Use: Non-smoker (Stopped in August of 2024. Pt smoked for 50 years.) Gave Education Materials For:: Tobacco Triggers, Pulmonary Disease, Risk Factors, Breathing Techniques, Pulmonary A&P, Exacerbation Signs & Symptoms and Stress & Relaxation Core Components - 30 DAYS Visit Date of Eval: 05/21/25 Session Number:: 22 Hypertension Resting Blood Pressure:: 118/62 Citizen Of [place] [employer] Hypertension Guidelines Peak Exercise Blood Pressure:: 160/70 Outcomes/Goals: Able to verbalize/achieve optimal blood pressure <130/80 and Incorporates diet changes & exercise for blood pressure control by DC Interventions/plan: Instruct on optimal blood pressure, hypertension & medications and Instruct on effects of sodium, alcohol, stress, exercise &hypertension Tobacco - 30-Day Tobacco Program Goals Stages of Change:: Maintenance Do you have family support?: Yes Tobacco Use: Non-smoker (Stopped in August of 2024. Pt smoked for 50 years.) Gave Education Materials For:: Tobacco Triggers, Pulmonary Disease, Risk Fac tors, Breathing Techniques, Pulmonary A&P, Exacerbation Signs & Symptoms and Stress & Relaxation 30-day Reassessments:: Met Reassessment Notes & Comments:: Pt is currently a nonsmoker Exacerbation Mgmt & Airway Clearance Reassessment: Demonstrates knowledge of O2 Rx at rest, Demonstrates knowledge of O2 Rx with exercise, Using O2 as prescribed, Has home O2 as prescribed and Uses port O2 as prescribed Bronchial Hygiene Plan: Yes: Pt demonstrates correctly for effective cough, Yes: Pt demo correct for CPT, Yes: Pt demo correct for device, Yes: Pt demo correct for NS nasal spray, Yes: Pt demo correct for sputum management, Yes: Pt demo correct for improved hydration, Yes: Pt demo correct for hand hygiene, Yes: Pt demo correct for evalute sputum, Yes: Pt demo correct for verbalize when to call MD and Yes: Pt demo correct for cleaning of respiratory equipment Medication Medication reassessment: Yes: Pt demonstrates correct technique timing for MDI, Yes: Pt demonstrates correct technique timing for DPI, Yes: Pt demonstrates correct technique timing for NEB and Yes: Pt demonstrates correct technique timing for spacer Core Components - 60 DAYS Visit Date of Eval: 05/21/25 Session Number:: 22 Hypertension Resting Blood Pressure:: 118/62 Citizen Of [place] [employer] Hypertension Guidelines Peak Exercise Blood Pressure:: 160/70 Outcomes/Goals: Able to verbalize/achieve optimal blood pressure <130/80 and Incorporates diet changes & exercise for blood pressure control by DC Interventions/plan: Instruct on optimal blood pressure, hypertension & medications and Instruct on effects of sodium, alcohol, stress, exercise &hypertension Tobacco - 60-Day Tobacco Program Goals Stages of Change:: Maintenance Do you have family support?: Yes Tobacco Use: Non-smoker (Stopped in August of 2024. Pt smoked for 50 years.) Gave Education Materials For:: Tobacco Triggers, Pulmonary Disease, Risk Factors, Breathing Techniques, Pulmonary A&P, Exacerbation Signs & Symptoms and Stress & Relaxation 60-day Reassessments:: Met Reassessment Notes & Comments:: Pt is currently a nonsmoker Exacerbation Mgmt & Airway Clearance Reassessment: Demonstrates knowledge of O2 Rx at rest, Demonstrates knowledge of O2 Rx with exercise, Using O2 as prescribed, Has home O2 as prescribed and Uses port O2 as prescribed Bronchial Hygiene Plan: Yes: Pt demonstrates correctly for effective cough, Yes: Pt demo correct for CPT, Yes: Pt demo correct for device, Yes: Pt demo correct for NS nasal spray, Yes: Pt demo correct for sputum management, Yes: Pt demo correct for improved hydration, Yes: Pt demo correct for hand hygiene, Yes: Pt demo correct for evalute sputum, Yes: Pt demo correct for verbalize when to call MD and Yes: Pt demo correct for cleaning of respiratory equipment Medication Medication list reviewed:: Yes Taking medications 100% of the time:: Met Medication reassessment: Yes: Pt demonstrates correct technique timing for MDI, Yes: Pt demonstrates correct technique timing for DPI, Yes: Pt demonstrates correct technique timing for NEB and Yes: Pt demonstrates correct technique timing for spacer 60-day Reassessments:: Met Core Components - 90 DAYS Visit Session Number:: 22 Hypertension Resting Blood Pressure:: 118/62 Citizen Of [place] [employer] Hypertension Guidelines Peak Exercise Blood Pressure:: 160/70 Outcomes/Goals: Able to verbalize/achieve optimal blood pressure <130/80 and Incorporates diet changes & exercise for blood pressure control by DC Interventions/plan: Instruct on optimal blood pressure, hypertension & medications and Instruct on effects of sodium, alcohol, stress, exercise &hypertension Tobacco - 90-Day Tobacco Program Goals Stages of Change:: Maintenance Do you have family support?: Yes Tobacco Use: Non-smoker (Stopped in August of 2024. Pt smoked for 50 years.) Gave Education Materials For:: Tobacco Triggers, Pulmonary Disease, Risk Factors, Breathing Techniques, Pulmonary A&P, Exacerbation Signs & Symptoms and Stress & Relaxation 90-day Reassessments:: Met Reassessment Notes & Comments:: Pt is currently a nonsmoker Exacerbation Mgmt & Airway Clearance Bronchial Hygiene Plan: Yes: Pt demonstrates correctly for effective cough, Yes: Pt demo correct for CPT, Yes: Pt demo correct for device, Yes: Pt demo correct for NS nasal spray, Yes: Pt demo correct for sputum management, Yes: Pt demo co rrect for improved hydration, Yes: Pt demo correct for hand hygiene, Yes: Pt demo correct for evalute sputum, Yes: Pt demo correct for verbalize when to call MD and Yes: Pt demo correct for cleaning of respiratory equipment Medication Medication reassessment: Yes: Pt demonstrates correct technique timing for MDI, Yes: Pt demonstrates correct technique timing for DPI, Yes: Pt demonstrates correct technique timing for NEB and Yes: Pt demonstrates correct technique timing for spacer Core Components - Final Visit Session Number:: 22 Hypertension Resting Blood Pressure:: 118/62 Citizen Of [place] [employer] Hypertension Guidelines Peak Exercise Blood Pressure:: 160/70 Outcomes/Goals: Able to verbalize/achieve optimal blood pressure <130/80 and Incorporates diet changes & exercise for blood pressure control by DC Tobacco - Final Tobacco Program Goals Stages of Change:: Maintenance Do you have family support?: Yes Tobacco Use: Non-smoker (Stopped in August of 2024. Pt smoked for 50 years.) Exacerbation Mgmt & Airway Clearance Bronchial Hygiene Plan: Yes: Pt demonstrates correctly for effective cough, Yes: Pt demo correct for CPT, Yes: Pt demo correct for device, Yes: Pt demo correct for NS nasal spray, Yes: Pt demo correct for sputum management, Yes: Pt demo correct for improved hydration, Yes: Pt demo correct for hand hygiene, Yes: Pt demo correct for evalute sputum, Yes: Pt demo correct for verbalize when to call MD and Yes: Pt demo correct for cleaning of respiratory equipment Medication Medication reassessment: Yes: Pt demonstrates correct technique timing for MDI, Yes: Pt demonstrates correct technique timing for DPI, Yes: Pt demonstrates correct technique timing for NEB and Yes: Pt demonstrates correct technique timing for spacer Knowledge Questionaire (BCKQ) Information Information: [place] COPD Knowledge Questionnaire (BCKQ) This questionnaire is designed to find out what you know about your lung problem. It should be completed without help form anyone else. This usually takes between 10 and 20 minutes. Your answers will help us to find out what information you need to help you to understand and manage your lung condition. [place] which you think is the correct answer.
[2025-05-21 10:40] VITALS: BP 118/62; BP 160/70; O2SAT 88; BMI 32.7
== END 2025-06-06 23:59 ==
LOC: PR 13:00
PROVIDERS: PCP Internal Medicine; Referring Provider Internal Medicine Pulmonary Disease; Visit Provider Internal Medicine Pulmonary Disease
DX: J90 Pleural effusion, not elsewhere classified (principal); J45.40 Moderate persistent asthma, uncomplicated
CPT/HCPCS: 36415; 85652; 86140; 97150; G0239